=== PATIENT | male | born 1945 | race African-American/Black ===

== ENCOUNTER 2016-04-21 08:57 | Day surgery (SDC) | payer MEDICARE ==
[2016-04-18 14:14] VITALS: BMI 19.9
[~2016-04-21 08:57] MED LIST: ALBUTEROL NEB (CONC) 2.5 MG/0.5 ML INHALATION ONE; LACTATED RINGERS 1,000 ML IV ONE; LIDOCAINE 2% (PF) 20 MG/ML 10ML INHALATION ONE
[2016-04-21 09:38] VITALS: RESP 16
[2016-04-21] MEDS ORDERED: LIDOCAINE 1% 20 ML VIAL (10MG/ML) FOR IV START INTRADERMA ONE (09:44)
[2016-04-21] MEDS ORDERED: LIDOCAINE 1% INJ 10MG/ML (20 ML MDV) ONE (11:20)
[2016-04-21] MEDS ORDERED: NEOSTIGMINE 1 MG/ML 10 ML VIAL ONE (11:20)
[2016-04-21] MEDS ORDERED: ROCURONIUM BROMIDE 10 MG/ML 10 ML VIAL IV ONE (11:20)
[2016-04-21] MEDS ORDERED: fentaNYL (PF) 50 MCG/ML 2 ML AMP ONE (11:20)
[2016-04-21] MEDS ORDERED: PROPOFOL 10 MG/ML 20 ML VIAL IV ONE (11:20)
[2016-04-21] MEDS ORDERED: MIDAZOLAM 2 MG/2 ML VIAL ONE (11:20)
[2016-04-21] MEDS ORDERED: GLYCOPYRROLATE 0.2 MG/ML 2 ML VIAL ONE (11:20)
[2016-04-21] MEDS ORDERED: LABETALOL 5 MG/ML VIAL MDV ONE (11:20)
--- NOTE | 2016-04-21 12:01 | P.PCN ---
Date of Procedure: 04/21/16 Preoperative Diagnosis: Right lower lobe mass Postoperative Diagnosis: Right lower lobe mass Procedure(s) Performed: Navigation bronchoscopy, endobronchial needle aspirate, endobronchial biopsies, endobronchial brushings, bronchoalveolar lavage Anesthesia: ALOK Surgeon: Neal Fisher Ed Tech #1: Mirlande Lee Estimated Blood Loss (ml): 10 Pathology: other Condition: stable Disposition: same day Indications for Procedure: lung mass Operative Findings: The patient was taken initially to CT department where a inspiratory and expiratory computed tomography scan was done for planning purposes. The appropriate Vpads was placed preoperatively. The CT images were reviewed and appropriate target was segmented and plan for and the Route to the target lesion was identified. Following that, the patient was brought into the operating room where he was placed under general anesthesia, intubated and placed on a mechanical ventilator. Using the flexible bronchoscope, and airway inspection was done and the visualized airways included the lower trachea, bubba, bilateral mainstem bronchi, left upper lobe bronchus, left lower lobe bronchus, right upper lobe bronchus, right lower lobe bronchus, right middle lobe bronchus and bronchus intermedius. A irregular endobronchial tumor-like lesion/growth was identified in the posterior segment of the right lower lobe and was near completely occluding the airway. The rest of the airway examination was essentially within normal limits. Using the [employer] navigational system, they flexible bronchoscope was directed towards the posterior segment of the right lower lobe and endobronchial needle aspirate was done using a 19- gauge cytology needle. Following that endobronchial biopsies brushings and bronchoalveolar lavage of the right lower lobe posterior segment was done about a total of 80 mL of fluid was infused and 20 mL of fluid was aspirated. Note that while doing this procedure and biopsies, there was some superficial bleeding from the tumor surface which stopped spontaneously without any intervention. At that point, the flexible bronchoscope was removed and the patient was not clinically improved get extubated. Once extubated, the patient will be transferred to recovery. The procedure was done successfully. The endobronchial needle aspirate samples were inspected by pathologist bedside and the samples were lesional.
--- NOTE | 2016-04-21 12:02 | CT ---
EXAMINATION TYPE: CT Chest justen Dewey Protocol DATE OF EXAM: 04/21/2016 10:43 AM COMPARISON: Correlation radiographs 04/20/2016 HISTORY: 71-year-old male pre-bronchial navigation TECHNIQUE: Contiguous axial scanning of the with chest without IV contrast for purposes of endobronch ial navigation. Inspiratory and expiratory views were performed and coronal and sagittal reconstructi ons performed. CT DLP: 606 mGycm Automated exposure control for dose reduction was used. FINDINGS: The heart is normal size without pericardial effusion. Coronary vessel calcifications are present und er a marker for coronary artery disease. Ectasia of the upper descending thoracic aorta 3.0 cm with mild atherosclerotic arch calcifications a nd conventional arch vessel branching anatomy. No clear evidence for thoracic lymphadenopathy. Mild bilateral gynecomastia. Some vascular ectasia rodríguez ggested in the retrocrural space. No osseous destructive process. There is moderate to severe centrilobular emphysema with mild diffuse bronchial wall thickening. 5.4 cm mass within the posterior right lower lobe. This appears to attenuate and truncate the posteri or basilar segmental bronchus. There is some satellite nodularity adjacent to the mass at the right b ase measuring up to 5 mm and some adjacent patchy groundglass. Nonspecific hypodense lesions within the liver are subcentimeter and too small for accurate CT charac terization. Area of calcification posterior right hepatic dome is nonspecific, possibly prior granulo matous disease given punctate calcifications in the spleen as well. 1.4 cm hypodense lesion posterio r right kidney not adequately characterized on noncontrast CT, suspected cyst. Slight thickening of t he right adrenal gland. Bones: No osseous destructive process. IMPRESSION: 1. COPD WITH MODERATE TO SEVERE EMPHYSEMA. 2. 5.4 CM POSTERIOR RIGHT LOWER LOBE MASS. THIS TRUNCATES THE POSTERIOR BASILAR RIGHT LOWER LOBE SEGM ENTAL BRONCHUS. 3. THERE IS SOME SATELLITE NODULARITY MEASURING UP TO 5 MM AND SURROUNDING GROUNDGLASS THAT COULD REP RESENT PNEUMONITIS. 4. INDETERMINATE SUBCENTIMETER HYPODENSE LIVER LESIONS. 5. SLIGHT THICKENING OF THE RIGHT ADRENAL GLAND.
[2016-04-21 12:20] VITALS: TEMP 97.4
[2016-04-21 13:24] VITALS: BP 137/99; PULSE 107
== END 2016-04-21 13:41 | disposition home or self-care (01) ==
LOC: ORWHC2ENDO 08:57
PROVIDERS: ATTEND Internal Medicine Critical Care Medicine
DX: C34.31 Malignant neoplasm of lower lobe, right bronchus or lung (principal); J43.9 Emphysema, unspecified; I10 Essential (primary) hypertension; F17.200 Nicotine dependence, unspecified, uncomplicated; I69.854 Hemiplegia and hemiparesis following other cerebrovascular disease affecting left non-dominant side; Z79.899 Other long term (current) drug therapy
CPT/HCPCS: 88104; 88108; 88305; 88173; 88342; 88341; 87070; 87205; 71250; 31629; 31623; 31624; 31627; J2250; J2710; J2001; J3010; J2704; 31625

== ENCOUNTER → 2016-04-30 | Outpatient (CLI) | payer MEDICARE ==
--- NOTE | 2016-05-02 14:40 | PE ---
Nuclear medicine PET/CT HISTORY: Right lower lobe lung mass Patient received 15.2 mCi F-18 intravenously delayed scanning performed from the skull base to the mi d thighs. Localization and attenuation correction CT scan was also performed. Exam correlated to CT c hest 21 April 2016, chest x-ray May and 20 April 2016 Neck and chest: Right lower lobe lung mass now measures approximately 5.7 cm in greatest dimension. S UV is 10. There is no evident adenopathy. Coronary artery calcifications are present. Pulmonary arter y somewhat prominent, correlate for possible pulmonary artery hypertension. There is no pleural effus ion. Emphysematous changes are present within the lungs. Interstitial changes are also present in the right lower lobe. Pelvis: No suspicious hypermetabolic uptake. No evident renal mass. Cystic foci within the left lobe of the liver are subcentimeter in size. No retroperitoneal adenopathy. Cystic foci associated with th e right kidney. Osseous structures: At the level of the lesser trochanter muscular origin small area of hypermetaboli c uptake is present which is likely benign. IMPRESSION: Findings compatible with bronchogenic carcinoma. Emphysema, consider pulmonary artery hyp ertension. Additional findings above.
== END | disposition home or self-care (01) ==
LOC: RADPETMAIN 08:05
PROVIDERS: ATTEND Internal Medicine
DX: R91.8 Other nonspecific abnormal finding of lung field (principal); J43.9 Emphysema, unspecified; I25.10 Atherosclerotic heart disease of native coronary artery without angina pectoris
CPT/HCPCS: 78815; A9552

== ENCOUNTER → 2016-05-23 | Outpatient (CLI) | payer MEDICARE ==
[~2016-05-23] MED LIST changes: -ALBUTEROL NEB (CONC) 2.5 MG/0.5 ML INHALATION ONE; -LACTATED RINGERS 1,000 ML IV ONE; -LIDOCAINE 2% (PF) 20 MG/ML 10ML INHALATION ONE; +REGADENOSON 0.4 MG/5 ML SYRINGE IV ONE
[2016-05-23 08:02] LABS: ABG Base Excess 2.6 mmol/L; ABG HCO3 26 mmol/L (21-25); ABG PCO2 39 mmHg (35-45); ABG PH 7.45 (7.35-7.45); ABG PO2 74 mmHg (83-108); ABG TCO2 28 mmol/L (19-24)
--- NOTE | 2016-05-23 08:48 | US ---
EXAMINATION TYPE: US carotid duplex BILAT DATE OF EXAM: 05/23/2016 8:25 AM COMPARISON: 03/27/2013 CLINICAL HISTORY: 71-year-old male I25.10 coronary artery dis. History of left carotid stenosis. TECHNIQUE: Carotid duplex ultrasound examination. Indirect Doppler criteria utilized. FINDINGS: There is moderate to severe atherosclerotic change at the left greater than right bifurcations. EXAM MEASUREMENTS: RIGHT: Peak Systolic Velocity (PSV) cm/sec ----- Right CCA: 46.0 ----- Right ICA: 95.2 ----- Right ECA: 73.1 ICA/CCA ratio: 2.1 RIGHT: End Diastole cm/sec ----- Right CCA: 11.1 ----- Right ICA: 29.8 ----- Right ECA: 4.6 LEFT: Peak Systolic Velocity (PSV) cm/sec ----- Left CCA: 42.6 ----- Left ICA: 172.8 ----- Left ECA: 99.4 ICA/CCA ratio: 4.1 LEFT: End Diastole cm/sec ----- Left CCA: 11.5 ----- Left ICA: 46.5 ----- Left ECA: 6.5 VERTEBRALS (direction of flow): Right Vertebral: Antegrade Left Vertebral: Antegrade IMPRESSION: Measurements suggest at least moderate (50-69%) proximal left ICA stenosis. Given the degree of eleva tion in the ICA/CCA ratio and end-diastolic velocity, consider CTA to exclude a more severe stenosis. Criteria for Assigning % of Stenosis / Diameter reduction (Estimation based on the indirect measurements of the internal carotid artery velocities (ICA PSV). 1. Normal (no stenosis)=ICA PSV < 125 cm/s: ratio < 2.0: ICA EDV<40 cm/s. 2. Less than 50% stenosis=ICA PSV < 125 cm/s: ratio < 2.0: ICA EDV<40 cm/s. 3. 50 to 69% stenosis=ICA PSV of 125 to 230 cm/s: ration 2.0 ? 4.0: ICA EDV 40-100 cm/s. 4. Greater than 70% stenosis to near occlusion= ICA PSV > 230 cm/s: ratio > 4.0: ICA EDV > 100 cm/s. 5. Near occlusion= ICA PSV velocities may be low or undetectable: variable ratio and ICA EDV. 6. Total occlusion=unable to detect flow.
[2016-05-23 10:14] LABS: CH 28.2; CHCM 32.1; HCT 51.7 % (39.0-53.0); HDW 2.87; HGB 16.3 gm/dL (13.0-17.5); MCH 27.8 pg (25.0-35.0); MCHC 31.5 g/dL (31.0-37.0); MCV 88.5 fL (80.0-100.0); Mean Platelet Volume 7.1; RBC 5.84 m/uL (4.30-5.90); WBC 4.8 k/uL (3.8-10.6)
[2016-05-23 10:24] LABS: INR 1.1 (<1.1); Partial Thromboplastin Time 25.6 sec (22.0-30.0); Prothrombin Time 11.3 sec (9.0-12.0)
[2016-05-23 10:35] LABS: Bilirubin, Delta 0.5 mg/dL (0.0-0.2); Potassium 4.4 mmol/L (3.5-5.1); Total Bilirubin 1.1 mg/dL (0.2-1.3); Total Protein 7.6 g/dL (6.3-8.2)
--- NOTE | 2016-05-23 11:23 | EST ---
DATE OF SERVICE: 05/23/2016 AGE: 71Y SEX: M HT: 70 WT: 136 lbs. Protocol Robert: Other: Lexiscan Cardiolite Stage: Dur. of Exercise: *Heart Rate Blood Pressure *Rest: 65 Rest: 187/93 * *Max. Achieved: 83 Maximum BP: 196/101 85% PMHR: 126 100% PMHR: 148 *METS: INDICATIONS: Pre-op evaluation, history of hypertension, history of CVA, history of smoking 1 pack of cigarettes a day for over 50 years. MEDICATIONS: Resting ECG shows sinus rhythm rate of 65 beats per minute, SC interval 0.16, QRS 0.08. T wave inversions are noted in the lateral leads, nonspecific. Utilizing ad standard Lexiscan protocol, Lexiscan was given IV push followed by serial EKGs without any chest pain or pressure or ST segment deviations indicative of ischemia in any of the monitoring 12 leads. IMPRESSION: 1. Baseline rhythm is sinus with normal SC interval, normal QRS, nonspecific ST-T wave changes in the lateral leads. 2. Negative Lexiscan Cardiolite study. 3. Nuclear scintigrams to follow from radiology department.
[2016-05-23 11:58] LABS: Appearance,Urine Clear (Clear); Bilirubin,Urine Negative (Negative); Glucose,Urine (UA) Negative (Negative); Ketones,Urine Negative (Negative); Leukocyte Esterase,Urine Negative (Negative); Nitrite,Urine Negative (Negative); PH, Urine 6.5 (5.0-8.0); Protein,Urine Negative (Negative); UA Billing (MACRO vs. MICRO) CHEM
--- NOTE | 2016-05-23 12:22 | NM ---
EXAMINATION TYPE: NM stress lexiscan cardiolite DATE OF EXAM: 05/23/2016 11:09 AM COMPARISON: NONE HISTORY: 71 year-old male history of coronary artery disease TECHNIQUE: After the intravenous administration of 10.66 mCi Tc 99m Sestamibi - Cardiolite resting S PECT images acquired 45 minutes post injection. The patient received 0.4mg Lexiscan, 27.5 mCi Tc 99m Sestamibi - Stress images obtained [address] injection FINDINGS: Review of stress and rest SPECT images demonstrates no distinct perfusion abnormality. Gated analysi s shows normal wall motion with an estimated left ventricular ejection fraction of 55 %. TID is calc ulated at 0.93, within normal limits. IMPRESSION: No scintigraphic evidence for reversible ischemia.
== END | disposition home or self-care (01) ==
LOC: RADNMMAIN 07:02
PROVIDERS: ATTEND Thoracic Surgery (Cardiothoracic Vascular Surgery)
DX: Z01.818 Encounter for other preprocedural examination (principal); I65.22 Occlusion and stenosis of left carotid artery
CPT/HCPCS: 36600; 94726; 94729; 94060; 93017; 80051; 80076; 82805; 82947; 85027; 85610; 85730; 81003; 93880; 78452; 93005; A9500; 86850; 86900; 86901

== ENCOUNTER 2016-05-27 08:42 | Inpatient (IN) | payer MEDICARE, OTHER ==
[~2016-05-27 08:42] MED LIST changes: +DEXAMETHASONE SOD PHOSPHATE 10 MG/ML 1 ML VIAL IV ONE; +HYDROmorphone 1 MG/ML 1 ML SYRINGE IVP PRN; +LACTATED RINGERS 1,000 ML IV SCH; +ONDANSETRON 4 MG/2 ML VIAL IVP ONE; -REGADENOSON 0.4 MG/5 ML SYRINGE IV ONE; +ceFAZolin 1,000 MG in DEXTROSE/WATER 1 50ML.BAG IV ONE
[2016-05-27] MEDS ORDERED: LIDOCAINE 1% 20 ML VIAL (10MG/ML) FOR IV START INTRADERMA ONE (09:03)
[2016-05-27] MEDS: MIDAZOLAM 2 MG/2 ML VIAL IV PRN ×2 (09:20→09:22)
[2016-05-27] MEDS ORDERED: LABETALOL 5 MG/ML VIAL MDV ONE (10:04)
[2016-05-27] MEDS ORDERED: NEOSTIGMINE 1 MG/ML 10 ML VIAL ONE (10:04)
[2016-05-27] MEDS ORDERED: fentaNYL (PF) 50 MCG/ML 2 ML AMP ONE (10:04)
[2016-05-27] MEDS ORDERED: ROCURONIUM BROMIDE 10 MG/ML 10 ML VIAL IV ONE (10:04)
[2016-05-27] MEDS ORDERED: SUCCINYLCHOLINE CHLORIDE 100 MG/5 ML SYR IV ONE (10:04)
[2016-05-27] MEDS ORDERED: MIDAZOLAM 2 MG/2 ML VIAL ONE (10:04)
[2016-05-27] MEDS ORDERED: ePHEDrine 50 MG/ML 1 ML AMP ONE (10:04)
[2016-05-27] MEDS ORDERED: PHENYLEPHRINE-0.9% NACL SYG 1 MG/10 ML SYRINGE ONE (10:04)
[2016-05-27] MEDS ORDERED: GLYCOPYRROLATE 0.2 MG/ML 2 ML VIAL ONE (10:04)
[2016-05-27] MEDS ORDERED: LIDOCAINE 1% INJ 10MG/ML (20 ML MDV) ONE (10:04)
[2016-05-27] MEDS ORDERED: PROPOFOL 10 MG/ML 20 ML VIAL IV ONE (10:04)
[2016-05-27] MEDS ORDERED: NALOXONE 0.4 MG/ML 1 ML VIAL IV PRN (10:30)
[2016-05-27] MEDS ORDERED: BUPIVACAINE (PF) 0.5% 31.3 ML, HYDROmorphone 5 MG in SODIUM CHLORIDE 0.9% 216 ML EPIDURAL PRN (10:30)
[2016-05-27] MEDS ORDERED: LACTATED RINGERS 1,000 ML IV ONE (12:57)
--- NOTE | 2016-05-27 13:16 | P.OP ---
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 Right lower and middle bilobectomy.) Condition: stable Disposition: PACU Indications for Procedure: Patient was diagnosed with a large non-small cell carcinoma of the right lower lobe approximately 5 cm in diameter without evidence of metastatic disease by PET scan. Operative Findings: On opening the chest there were minimal intrapleural adhesions. There was a large tumor involving the right lower lobe. The fissures were incomplete. There was significant lymphadenopathy both in the mediastinum and in the hilum and significant inflammatory adhesions in this area as well this made dissection in the hilum very difficult. Lung tissue was of poor overall quality and very friable. On completion of the operation the specimen was sent for frozen section of the bronchial margin which returned negative for malignancy. Description of Procedure: the patient was brought to the operating room placed supine on the operating table anesthetized and intubated with a double-lumen endotracheal tube tube was positioned with fiberoptic bronchoscopy no endobronchial lesions were noted. The tube was secured and the patient turned in the left lateral decubitus position the right chest was sterilely pressed prepped and draped. a small posterior lateral thoracotomy incision was performed. The latissimus muscle was divided with electrocautery. serratus muscle was mobilized and retracted anteriorly. The chest was entered in the sixth interspace. The intercostal muscles were undercut anteriorly and posteriorly to allow rib spreading. 2. Rib director of professional services was placed and the chest was exposed second to VA was used for further exposure. chest was explored with the findings as noted above. Inferior pulmonary ligament was taken down. Inferior pulmonary vein was encircled ligated and divided with a Endo WEN vascular stapler. dissection was carried up onto the bronchus. The paraesophageal and subcarinal lymph nodes were dissected out and sent for permanent section. dissection in the hilum was very difficult we were able to encircle the bronchus intermedius but were really not able to dissect further down safely and findings the takeoff of the middle lobe bronchus. was decided to proceed with bilobectomy. bronchus intermedius was divided with a Endo WEN thick stapler. the branches of the superior pulmonary vein vein in the middle lobe was now dissected out and divided with a Endo WEN vascular stapler. careful dissection was carried up onto the pulmonary artery the dissection was very difficult we first identified ligated and divided the middle lobe branch of the pulmonary artery. This was ligated with silk ties and divided. we were now able to safely encircle the pulmonary artery branches leading to the lower lobe and this was ligated and divided with an Endo WEN vascular stapler. fissures were completed with multiple firings of the Endo WEN stapler. The specimen was removed from the field and sent to pathology for frozen section. hilar lymph nodes were resected and sent as R10 and R 11 lymph nodes is appropriate. the R4 lymph nodes were dissected. all lymph node specimens were sent for permanent section. the AtriCure Endo ice device was used to perform cryoablation of the intercostal nerves levels 4,5,6,7 and 8. we irrigated out the chest. The lung tissue was very friable and inflating the lung the lung tore at the staple line. This was oversewn with Prolene suture. no pro-gel was available for sealant. A 28-Armenian chest tube was placed through separate stab incision and positioned posterior apically. ribs were approximated with #1 Vicryl. muscle layers were approximated with 0 Vicryl. Subcutaneous tissue was approximated with 2-0 Vicryl. Skin was closed with 3-0 Vicryl. Steri-Strips and dry sterile dressings were applied and the patient was turned supine and extubated and transferred to recovery in stable condition.
[2016-05-27] MEDS ORDERED: METOCLOPRAMIDE 5 MG/ML 2 ML VIAL IVP PRN (13:22)
[2016-05-27] MEDS ORDERED: BISACODYL 10 MG SUPP RECTAL PRN (13:22)
[2016-05-27] MEDS ORDERED: IPRATROPIUM-ALBUTEROL 3 ML NEB IH PRN (13:22)
--- NOTE | 2016-05-27 14:02 | XR ---
EXAMINATION TYPE: XR chest 1V DATE OF EXAM: 05/27/2016 1:49 PM COMPARISON: 05/27/2016 HISTORY: 71-year-old male postoperative evaluation for lung cancer. TECHNIQUE: Single frontal view of the chest is obtained. FINDINGS: There is some volume loss within the right hemithorax with shift of the cardiomediastinum to the righ t. Elongation of the thoracic aorta. Heart is normal size. Moderate-sized right basilar pneumothorax estimated at 35% on an apically directed right-sided chest tube is present. Subcutaneous air is also noted. Left lung and pleural space remain clear. Surgical clips of the right axilla. IMPRESSION: Interval partial right pneumonectomy. Findings suggest a moderate right basilar pneumothorax estimate d at 35% by volume. Chest tube is in place.
[2016-05-27] MEDS: IPRATROPIUM-ALBUTEROL 3 ML NEB IH SCH ×2 (17:16→19:38)
[2016-05-27] MEDS: DEXTROSE 5%-0.45% NACL 1,000 ML IV SCH (18:04)
[2016-05-27] MEDS: ceFAZolin 2 GM in SODIUM CHLORIDE 0.9% 100 ML IVPB SCH ×2 (18:04→23:15)
[2016-05-27] MEDS: HEPARIN SODIUM,PORCINE 5,000 UNIT/ML 1 ML VIAL SQ SCH (21:46)
[2016-05-28] MEDS ORDERED: HALOPERIDOL LACTATE 5 MG/ML 1 ML VIAL IM PRN (04:33)
[2016-05-28] MEDS ORDERED: KETOROLAC 30 MG/ML 1 ML VIAL IVP SCH (06:00)
[2016-05-28] MEDS: PANTOPRAZOLE 40 MG TABLET PO SCH (06:48)
[2016-05-28] MEDS ORDERED: ACETAMINOPHEN IV (For NPO) 1,000 MG in EMPTY BAG 1 BAG IVPB ONE (07:00)
[2016-05-28] MEDS: DEXTROSE 5%-0.45% NACL 1,000 ML IV SCH ×2 (08:10→16:53)
[2016-05-28] MEDS: DILTIAZEM CD 180 MG CAP.ER.24H PO SCH (08:11)
[2016-05-28] MEDS: HYDROCHLOROTHIAZIDE 25 MG TAB PO SCH (08:11)
[2016-05-28] MEDS: HEPARIN SODIUM,PORCINE 5,000 UNIT/ML 1 ML VIAL SQ SCH ×2 (08:11→22:14)
--- NOTE | 2016-05-28 08:38 | P.PN ---
Progress Note - Text Date: 05/28/2016 Time: 800 The patient is status post, right thoracotomy, postoperative day number[] The patient has no complaints of nausea vomiting or headache. The patient does not complain of any lower extremity numbness or weakness. The epidural was dislodged this past evening. The patient is comfortable at present. He medicines will be provided patient by the service.
[2016-05-28] MEDS ORDERED: LABETALOL 200 MG TAB PO SCH (09:00)
--- NOTE | 2016-05-28 10:35 | XR ---
EXAMINATION TYPE: XR chest 1V DATE OF EXAM: 05/28/2016 9:11 AM COMPARISON: NONE INDICATION: Pneumothorax TECHNIQUE: Single frontal view of the chest is obtained. FINDINGS: The heart size is normal. The pulmonary vasculature is normal. The lungs are clear. A right basilar pneumothorax remains present. This appears smaller than comparison. Right-sided chest tube is present along the medial right lung border. Extensive emphysematous changes are developing. IMPRESSION: 1. Small right basilar pneumothorax somewhat diminished from prior study. 2. Right-sided chest tube. 3. Extensive increasing emphysematous changes right chest wall
[2016-05-28 10:46] LABS: Basophils % (A) 0 %; CH 28.6; Eosinophils # (A) 0.1 k/uL (0-0.7); Eosinophils % (A) 2 %; HDW 2.88; HGB 15.7 gm/dL (13.0-17.5); Luc # (Auto) 0.21; Luc % (Auto) 2; Lymphocytes # (A) 1.4 k/uL (1.0-4.8); Lymphocytes % (A) 16 %; MCV 87.5 fL (80.0-100.0); Mean Platelet Volume 6.4; Monocytes # (A) 0.4 k/uL (0-1.0); Monocytes % (A) 5 %; Neutrophils # (A) 6.7 k/uL (1.3-7.7); Neutrophils % (A) 76 %; RDW 14.6 % (11.5-15.5); WBC 8.9 k/uL (3.8-10.6); WBC (Perox) 8.99
[2016-05-28 11:08] LABS: Anion Gap 9 mmol/L; Blood Urea Nitrogen 16 mg/dL (9-20); Calcium 8.8 mg/dL (8.4-10.2); Carbon Dioxide 24 mmol/L (22-30); Chloride 101 mmol/L (98-107); Glucose 117 mg/dL (74-99); Non-African American GFR(MDRD) >60 (>60 ml/min/1.73 sqM); Potassium 3.7 mmol/L (3.5-5.1); Sodium 134 mmol/L (137-145)
[2016-05-28] MEDS: IPRATROPIUM-ALBUTEROL 3 ML NEB IH SCH ×4 (11:10→22:15)
[2016-05-28] MEDS ORDERED: NICOTINE POLACRILEX 2 MG GUM BUCCAL PRN (11:28)
[2016-05-28] MEDS ORDERED: KETOROLAC 30 MG/ML 1 ML VIAL IVP PRN (12:00)
[2016-05-28] MEDS: NICOTINE 21MG/24HR PATCH TRANSDERM SCH (12:12)
[2016-05-28] MEDS: DIAZEPAM 2 MG TAB PO SCH ×3 (12:12→22:14)
[2016-05-28] MEDS: ASPIRIN 81 MG CHEW PO SCH (12:12)
[2016-05-28] MEDS: ATORVASTATIN 40 MG TAB PO SCH (12:12)
--- NOTE | 2016-05-28 15:12 | CONS ---
DATE OF CONSULTATION: 05/28/2016 REASON FOR CONSULTATION: Medical management requested by Dr. Negron. CONSULTATION: This is a 71-year-old patient of Dr. Weinberg who underwent a right mid lower lobectomy by Dr. Negron and also cryotherapy of the right IV to VII intercostal nerves. Patient has a chest tube on the right side with some subcutaneous emphysema and quite a bit of air leak. Patient was a bit agitated last night. Patient's chronic stable medical conditions include congestive heart failure, stroke with residual left-sided weakness, GERD, hypertension. REVIEW OF SYSTEMS: CONSTITUTIONAL: Tired. HEENT: None. RESPIRATORY: Some shortness of breath. CARDIOVASCULAR: None. GASTROINTESTINAL: None. MUSCULOSKELETAL: None. DERMATOLOGICAL: None. HEMATOLOGICAL: None. LYMPHATIC: None. PSYCHIATRIC: Agitated last night. NEUROLOGICAL: Some residual weakness on the left side. Past medical history of lung cancer, congestive heart failure, stroke with residual left-sided weakness, GERD, hypertension. PAST SURGICAL HISTORY: None. SOCIAL HISTORY: Patient smoked about 50 years now down to about close to a pack a day. Drinks half a bottle of MashON daily, lives with his daughter, retired. FAMILY HISTORY: Reviewed, noncontributory to the presentation. HOME MEDICATIONS: 1. Omeprazole 20 mg a day. 2. Trandate 200 mg p.o. daily. 3. Hydrochlorothiazide 25 mg daily. 4. [place] 7.5, 1 tablet q.6 p.r.n. 5. Cardizem ER 24 mg a day. ALLERGIES: None. On examination, temperature 101.3, pulse 119, respiration 18, blood pressure 110/76, pulse ox 90% on room air. GENERAL APPEARANCE: Average build, sitting up, tired -appearing. EYES: Pupils equal. Conjunctivae normal. HEENT: External appearance of nose and ears normal. Oral cavity normal. NECK: JVD not raised. Mass not palpable. RESPIRATORY: Effort increased. LUNGS: Decreased breath sounds especially on the right side. CARDIOVASCULAR: First and second sounds normal. No edema. ABDOMEN: Soft, nontender. Liver and spleen not palpable. LYMPHATIC: No lymph nodes palpable in neck or axillae. PSYCHIATRY: Alert and oriented x3. Mood and affect slightly low. MUSCULOSKELETAL: Subcutaneous emphysema on the right chest wall and in the supraclavicular area. Right chest wall also has a chest tube in place. INVESTIGATIONS: White count 8.9, hemoglobin 15.7, potassium 3.7. Chest x-ray reveals a right-sided chest tube, small pneumothorax and subcutaneous emphysema and the lungs are hyperinflated. ASSESSMENT: 1. Right middle and lower lobe resection for lung cancer including IV to VII intercostal cryoblation for pain control. 2. Emphysema in a current smoker. 3. Chronic nicotine dependence. Patient is a cigarette smoker. 4. Essential hypertension. 5. Gastroesophageal reflux disease. 6. Early delirium tremens last night because patient is probably withdrawing from alcohol. 7. Chronic alcohol dependence. Patient drinks a half pine of MashON every day. 8. Right pneumothorax, iatrogenic, with chest tube in place. 9. Subcutaneous emphysema from air leak on the right side. PLAN: Patient was put on nebulized bronchodilator and told to use respiratory spirometer. For DT standpoint prophylaxis, will start the patient on Lopressor 50 mg 3 times a day. Hold off the labetalol patient only getting once a day. Also put the patient on Valium 2 mg 3 times a day. Also put the patient on baby aspirin, given history of stroke. Will add Lipitor 40 mg a day for the same purpose. Patient advised against alcohol and smoking, given a nicotine patch. Thank you Dr. Negron. Will follow the patient closely with you.
--- NOTE | 2016-05-28 15:13 | P.PN ---
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 Patient awake and alert, no distress noted, no specific complaints,patient denies pain at this time. The patient removed his epidural last p.m. epidural placement site clean dry and intact. Vital Signs: Afebrile Vital Signs - 24 hr 05/27/16 05/27/16 05/27/16 15:15 15:30 15:45 Temperature Pulse Rate Pulse Rate [ Retail Interior [employer]er ] Pulse Rate [ 75 78 85 Pulse Oximetery ] Respiratory 16 16 16 Rate Blood Pressure [Left Arm] Blood Pressure 125/60 136/56 153/66 [Left Radial Artery Supine] O2 Sat by Pulse 100 100 100 Oximetry 05/27/16 05/27/16 05/27/16 16:00 16:15 16:27 Temperature 98 F Pulse Rate Pulse Rate [ [employer]er ] Pulse Rate [ 90 96 93 Pulse Oximetery ] Respiratory 16 16 16 Rate Blood Pressure [Left Arm] Blood Pressure 135/64 127/60 127/60 [Left Radial Artery Supine] O2 Sat by Pulse 99 100 100 Oximetry 05/27/16 05/27/16 05/27/16 17:00 17:15 17:16 Temperature 98 F Pulse Rate Pulse Rate [ [employer] Interior [employer]er ] Pulse Rate [ 89 62 Pulse Oximetery ] Respiratory 18 18 18 Rate Blood Pressure 138/70 133/45 115/78 [Left Arm] Blood Pressure [Left Radial Artery Supine] O2 Sat by Pulse 99 99 Oximetry 05/27/16 05/27/16 05/27/16 17:30 17:43 17:54 Temperature Pulse Rate Pulse Rate [ [employer] Interior [employer]er ] Pulse Rate [ 70 85 Pulse Oximetery ] Respiratory 18 18 18 Rate Blood Pressure 145/68 135/65 144/65 [Left Arm] Blood Pressure [Left Radial Artery Supine] O2 Sat by Pulse 100 98 100 Oximetry 05/27/16 05/27/16 05/27/16 18:21 18:40 19:21 Temperature Pulse Rate Pulse Rate [ [employer] Interior [employer]er ] Pulse Rate [ 86 76 Pulse Oximetery ] Respiratory 18 18 Rate Blood Pressure 148/75 113/57 [Left Arm] Blood Pressure [Left Radial Artery Supine] O2 Sat by Pulse 99 99 98 Oximetry 05/27/16 05/27/16 05/27/16 19:39 19:50 20:00 Temperature Pulse Rate 74 76 Pulse Rate [ Retail Interior [employer]er ] Pulse Rate [ Pulse Oximetery ] Respiratory 18 Rate Blood Pressure [Left Arm] Blood Pressure [Left Radial Artery Supine] O2 Sat by Pulse 95 Oximetry 05/27/16 05/27/16 05/28/16 20:21 21:21 00:00 Temperature 97.5 F L 98.8 F Pulse Rate Pulse Rate [ Retail Interior [employer]er ] Pulse Rate [ 82 94 99 Pulse Oximetery ] Respiratory 18 18 18 Rate Blood Pressure 123/62 154/85 140/62 [Left Arm] Blood Pressure [Left Radial Artery Supine] O2 Sat by Pulse 99 99 97 Oximetry 05/28/16 05/28/16 05/28/16 04:00 06:30 08:00 Temperature 99.6 F 101.7 F H 101.3 F H Pulse Rate Pulse Rate [ 119 H Retail Interior Designer ] Pulse Rate [ 101 H 131 H Pulse Oximetery ] Respiratory 18 18 Rate Blood Pressure 137/82 110/76 [Left Arm] Blood Pressure [Left Radial Artery Supine] O2 Sat by Pulse 100 90 L Oximetry 05/28/16 05/28/16 05/28/16 11:20 11:34 12:00 Temperature 99.1 F Pulse Rate 118 H 118 H Pulse Rate [ 119 H Retail Interior Designer ] Pulse Rate [ 95 Pulse Oximetery ] Respiratory 16 Rate Blood Pressure 104/65 [Left Arm] Blood Pressure [Left Radial Artery Supine] O2 Sat by Pulse 94 L 93 L Oximetry Labs: Short CBC 05/28/16 Range/Units 10:23 WBC 8.9 (3.8-10.6) k/uL Hgb 15.7 (13.0-17.5) gm/dL Hct 49.0 (39.0-53.0) % Plt Count 266 (150-450) k/uL Neutrophils # 6.7 (1.3-7.7) k/uL BMP 05/28/16 10:23 Sodium 134 L Potassium 3.7 Chloride 101 Carbon Dioxide 24 BUN 16 Creatinine 0.97 Glucose 117 H Calcium 8.8 IV Fluids: D5.45 normal saline at 75 mL per hour. Lungs: few scattered rhonchi throughout, diminished bilateral bases right greater than left. Respirations are unlabored. Positive subcu emphysema to his right chest and back. O2 sat: 93% on 3 L nasal cannula. I/S: 750 mL to 1000 mL, reviewed with the patient the importance of using his incentive spirometry every hour while awake. The patient did give a good return demonstration on his incentive spirometry. Heart: S1S2,regular rhythm and rate, positive systolic murmur. Remote telemetry showing sinus tachycardia heart rate 120. Right lateral chest incision clean dry and intact, dressing clean and dry.no drainage noted. Knee-high PROSPER hose and sequential compression devices in place to bilateral lower extremities. Abdomen: Soft, Positive bowel sounds present in all 4 quadrants. U/O: adequate, Butterfield catheter for accurate I&O. Chest Tubes: right pleural chest tube with positive continuous air leak. 440 mL of output the last 8 hours, 740 mL output since surgery. 24 hr Total: Intake & Output 05/26/16 05/27/16 05/28/16 05/29/16 06:59 06:59 06:59 06:59 Intake Total 3053.8 1720 Output Total 1444 3720 Balance 1609.8 -2000 Weight 62.5 kg 62.5 kg Active Medications Hydrocodone Bitart/Acetaminophen ([place] 7.5-325) 1 each PO Q6H PRN PRN Reason: Moderate Pain Albuterol/Ipratropium (Duoneb 0.5 Mg-3 Mg/3 Ml Soln) 3 ml IH RT-Q1H PRN PRN Reason: Shortness Of Breath Or Wheezing Albuterol/Ipratropium (Duoneb 0.5 Mg-3 Mg/3 Ml Soln) 3 ml IH RT-QID [facility] Last Admin: 05/28/16 11:20 Dose: 3 ml Aspirin (Aspirin) 81 mg PO DAILY [facility] Last Admin: 05/28/16 12:12 Dose: 81 mg Atorvastatin Calcium (Lipitor) 40 mg PO DAILY [facility] Last Admin: 05/28/16 12:12 Dose: 40 mg Bisacodyl (Dulcolax) 10 mg RECTAL DAILY PRN PRN Reason: Constipation Diazepam (Valium) 2 mg PO TID [facility] Last Admin: 05/28/16 12:12 Dose: 2 mg Diltiazem HCl (Cardizem Cd) 180 mg PO DAILY [facility] Last Admin: 05/28/16 08:11 Dose: 180 mg Haloperidol Lactate (Haldol) 5 mg IM Q6HR PRN PRN Reason: Agitation or Acute Psychosis Last Admin: 05/28/16 04:45 Dose: 5 mg Heparin Sodium (Porcine) (Heparin) 5,000 unit SQ Q12HR [facility] Last Admin: 05/28/16 08:11 Dose: 5,000 unit Hydrochlorothiazide (Hydrodiuril) 25 mg PO DAILY [facility] Last Admin: 05/28/16 08:11 Dose: 25 mg Bupivacaine HCl 31.3 ml/Hydromorphone HCl 5 mg/ Sodium Chloride 249.8 mls @ 0 mls/hr EPIDURAL .Q0M PRN; Protocol; Per Protocol PRN Reason: Pain Control Last Admin: 05/27/16 14:15 Dose: 88.8 mls Dextrose/Sodium Chloride (Dextrose 5%-1/2ns Iv Soln) 1,000 mls @ 75 mls/hr IV .[id number] [facility] Last Admin: 05/28/16 08:10 Dose: 75 mls/hr Ketorolac Tromethamine (Toradol) 15 mg IVP Q6HR PRN PRN Reason: Moderate Pain when IV preferre Stop: 05/29/16 12:01 Metoclopramide HCl (Reglan) 5 mg IVP Q4HR PRN PRN Reason: Nausea And Vomiting Metoprolol Tartrate (Lopressor) 50 mg PO TID [facility] Morphine Sulfate (Morphine Sulfate (Inj)) 2 mg IV Q2HR PRN PRN Reason: Mild Breakthrough Pain Nicotine (Habitrol 21mg/24hr Patch) 1 patch TRANSDERM DAILY [facility] Last Admin: 05/28/16 12:12 Dose: 1 patch Nicotine Polacrilex (Nicorette Gum) 2 mg BUCCAL Q4HR PRN PRN Reason: Nicotine Cravings Ondansetron HCl (Zofran) 4 mg IVP Q8HR PRN PRN Reason: Nausea And Vomiting Pantoprazole Sodium (Protonix) 40 mg PO AC-BRKFST [facility] Last Admin: 05/28/16 06:48 Dose: Not Given Plan: 1. Pain control per when necessary orders. 2. Wean oxygen as tolerated, pulmonary management per Dr. Suresh's recommendations 3. Encourage use of his incentive spirometry every hour while awake. 4. Increase activity as tolerated, physical therapy to evaluate and treat. 5. Consult social work for discharge placement. 6. Medical management per Dr Albert. 7. Further recommendations as patient progresses. <Rudi Gutierrez - Last Filed: 05/31/16 11:49> Progress Note - Text The patient was seen and examined. I agree with the above assessment and plan. Apparently the patient had some confusion overnight which resulted in dislodgment of his epidural catheter. This morning he appears to be more lucid. He does have a significant air leak from his chest tube. His chest x- ray reveals some subcutaneous emphysema along with a space around the right lung. We will therefore continue with suction for now. We will encourage incentive spirometry. His pain appears to be well controlled.
[2016-05-28] MEDS: METOPROLOL TARTRATE 50 MG TAB PO SCH ×2 (16:58→22:14)
--- NOTE | 2016-05-28 18:08 | CONS ---
DATE OF CONSULTATION: This is a 71-year-old black male postop day #1, status post right middle and right lower lobectomy for squamous cell carcinoma. The diagnosis was made by my partner. The patient underwent surgery yesterday by Dr. Negron. He is doing relatively well. He is on the sixth floor in Room 680, bed 2. Still on some nasal O2. Apparently has a history of gastroesophageal reflux disease, hypertension. The patient also has a recent diagnosis of lung cancer. Allergies are denied. Social history is positive for chronic tobacco use. Family history is noncontributory. Home medications include omeprazole, labetalol, hydrochlorothiazide, [place], and diltiazem. Occupational history is noncontributory. Surgical history is mostly remote. REVIEW OF SYSTEMS: CONSTITUTIONAL: Negative. NEUROLOGIC: Negative. HEENT: Negative. CARDIOVASCULAR: Negative. PULMONARY: Negative. GI/: Negative. RHEUMATOLOGICAL/IMMUNOLOGIC: Negative. ENDOCRINOLOGIC: Negative. Current vital signs are reviewed. Temperature is 101.3, heart rate is 100, respiratory rate 18, blood pressure 110/76, mean 87, and the room air saturation 94%. Appears in no acute distress, looks relatively comfortable. He was dosing off when we entered the room. HEENT examination is grossly unremarkable. Mucous membranes are moist. No oral lesions. Neck supple. Full range of motion. No adenopathy or thyromegaly. Neck veins are flat. Cardiovascular examination reveals regular rhythm and rate. Heart rate about 100, S1, S2 normal. No S3, S4 or murmur. Lungs reveal a few scattered rhonchi. Does not take deep breaths. No wheezes or crackles. Left lung breath sounds seem more significant than the right side. Abdomen is soft. Bowel sounds are heard. There were no masses or tenderness. Extremities reveal no cyanosis, clubbing or edema. Skin without rash or lesion. Brief neurological examination is nonfocal. Labs are reviewed. CBC is essentially normal. White count 8.9, hemoglobin 15.7, hematocrit 49.0, platelet count 266,000. Sodium 134, potassium 3.7, chloride 101, CO2 of 24, BUN and creatinine were 16 and 0.97. A chest x-ray today shows some postsurgical changes of right basilar pneumothorax, right-sided chest tube and some increasing emphysematous changes in the right chest wall. Medications are reviewed. He is on Tylenol, aspirin atorvastatin, Dulcolax, IV Valium, Cardizem, [place], Haldol, heparin, hydrochlorothiazide, updrafts with DuoNeb, Toradol, Reglan, metoprolol, morphine, nicotine patch, Protonix and Ancef. ASSESSMENT: 1. Postoperative day #1 right middle and right lower lobectomy for non-small cell lung cancer, squamous-cell type. 2. History of gastroesophageal reflux disease. 3. History of hypertension. PLAN: The patient will be followed closely. We recommend the incentive spirometer every hour while awake. He is on updrafts. Will continue to follow him closely. It will be important for him to take deep breaths and avoid atelectasis, pneumonia or pleural effusion. Additional recommendations and suggestions are forthcoming. He is currently on updrafts. No additional recommendations are made at this time.
[2016-05-29] MEDS: HYDROcodone/APAP 7.5-325MG 1 EACH TAB PO PRN ×2 (03:35→23:33)
[2016-05-29] MEDS: DEXTROSE 5%-0.45% NACL 1,000 ML IV SCH (06:56)
[2016-05-29] MEDS: PANTOPRAZOLE 40 MG TABLET PO SCH (06:56)
[2016-05-29 07:08] LABS: Basophils % (A) 0 %; CH 28.7; CHCM 33.7; Eosinophils # (A) 0.2 k/uL (0-0.7); Eosinophils % (A) 3 %; HCT 42.8 % (39.0-53.0); HDW 2.89; HGB 14.5 gm/dL (13.0-17.5); Luc # (Auto) 0.18; Luc % (Auto) 2; Lymphocytes # (A) 1.6 k/uL (1.0-4.8); Lymphocytes % (A) 21 %; MCH 28.9 pg (25.0-35.0); MCHC 33.8 g/dL (31.0-37.0); MCV 85.7 fL (80.0-100.0); Mean Platelet Volume 6.9; Monocytes # (A) 0.5 k/uL (0-1.0); Monocytes % (A) 6 %; Neutrophils # (A) 5.1 k/uL (1.3-7.7); Neutrophils % (A) 68 %; RDW 14.3 % (11.5-15.5); WBC 7.5 k/uL (3.8-10.6); WBC (Perox) 8.09
[2016-05-29 07:26] LABS: Anion Gap 7 mmol/L; Blood Urea Nitrogen 18 mg/dL (9-20); Calcium 8.4 mg/dL (8.4-10.2); Carbon Dioxide 28 mmol/L (22-30); Chloride 101 mmol/L (98-107); Glucose 125 mg/dL (74-99); Non-African American GFR(MDRD) >60 (>60 ml/min/1.73 sqM); Potassium 3.7 mmol/L (3.5-5.1); Sodium 136 mmol/L (137-145)
--- NOTE | 2016-05-29 09:30 | XR ---
EXAMINATION TYPE: XR chest 1V portable DATE OF EXAM: 05/29/2016 8:57 AM COMPARISON: NONE INDICATION: Pneumothorax TECHNIQUE: Single frontal view of the chest is obtained. FINDINGS: The heart size is normal. The pulmonary vasculature is normal. Right apical pneumothorax is evident. This is increasing from prior study. The basilar loculated pne umothorax may be somewhat smaller than prior. Right-sided chest tube remains present. Extensive M7 is changes are on the right cutaneous tissue. IMPRESSION: 1. Increasing right side pneumothorax. 2. Report was called to Angela the patient's nurse by Dr. Payne by telephone at time of interpretat ion 0925 hours 05/29/2016
[2016-05-29] MEDS: DILTIAZEM CD 180 MG CAP.ER.24H PO SCH (09:37)
[2016-05-29] MEDS: HYDROCHLOROTHIAZIDE 25 MG TAB PO SCH (09:37)
[2016-05-29] MEDS: ASPIRIN 81 MG CHEW PO SCH (09:37)
[2016-05-29] MEDS: METOPROLOL TARTRATE 50 MG TAB PO SCH ×3 (09:37→21:00)
[2016-05-29] MEDS: ATORVASTATIN 40 MG TAB PO SCH (09:37)
[2016-05-29] MEDS: DIAZEPAM 2 MG TAB PO SCH ×3 (09:37→21:00)
[2016-05-29] MEDS: NICOTINE 21MG/24HR PATCH TRANSDERM SCH (09:37)
[2016-05-29] MEDS: HEPARIN SODIUM,PORCINE 5,000 UNIT/ML 1 ML VIAL SQ SCH ×2 (09:37→21:00)
[2016-05-29] MEDS: IPRATROPIUM-ALBUTEROL 3 ML NEB IH SCH ×4 (13:09→20:37)
--- NOTE | 2016-05-29 13:27 | P.PN ---
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 Patient awake and alert, no distress noted, no specific complaints. He is sitting up to the bedside chair. Vital Signs: Afebrile Vital Signs - 24 hr 05/28/16 05/28/16 05/28/16 15:43 15:56 16:00 Temperature 98.8 F Pulse Rate 100 100 Pulse Rate [ 119 H Hide Cleaner ] Pulse Rate [ 75 Pulse Oximetery ] Respiratory 18 Rate Blood Pressure 109/60 [Left Arm] O2 Sat by Pulse 100 Oximetry 05/28/16 05/29/16 05/29/16 20:00 00:00 04:00 Temperature 98.6 F 99.1 F 98.6 F Pulse Rate Pulse Rate [ Hide Cleaner ] Pulse Rate [ 70 74 62 Pulse Oximetery ] Respiratory 18 18 18 Rate Blood Pressure 108/58 132/70 110/55 [Left Arm] O2 Sat by Pulse 100 100 98 Oximetry 05/29/16 05/29/16 08:00 13:09 Temperature 97.6 F Pulse Rate 84 Pulse Rate [ 119 H Hide Cleaner ] Pulse Rate [ 60 Pulse Oximetery ] Respiratory 18 Rate Blood Pressure 115/58 [Left Arm] O2 Sat by Pulse 99 Oximetry Labs: Short CBC 05/29/16 Range/Units 05:49 WBC 7.5 (3.8-10.6) k/uL Hgb 14.5 (13.0-17.5) gm/dL Hct 42.8 (39.0-53.0) % Plt Count 231 (150-450) k/uL Neutrophils # 5.1 (1.3-7.7) k/uL BMP 05/29/16 05:49 Sodium 136 L Potassium 3.7 Chloride 101 Carbon Dioxide 28 BUN 18 Creatinine 1.01 Glucose 125 H Calcium 8.4 IV Fluids: D5.45 normal saline at 75 mL per hour. Lungs: few scattered rhonchi throughout, diminished bilateral bases right greater than left. Respirations are unlabored. O2 sat: 98% on 2 L nasal cannula. I/S: 750 mL, reviewed with the patient the importance of using his incentive spirometry every hour while awake. The patient did give a good return demonstration on the incentive spirometry. Heart: S1S2, regular rhythm and rate, positive for systolic murmur. Remote telemetry showing normal sinus rhythm heart rate 63. Right chest incision clean dry and well approximated. No drainage noted. Chest tube remains in place secured and intact. Abdomen: Soft, Positive bowel sounds present in all 4 quadrants. U/O: adequate, Butterfield catheter for accurate I&O. Chest Tubes: Right pleural chest tube with continuous air leak. Draining thin serosanguineous drainage. 180 mL output in the last 8 hours, 540 mL in the last 24 hours. 24 hr Total: Intake & Output 05/27/16 05/28/16 05/29/16 05/30/16 06:59 06:59 06:59 06:59 Intake Total 3053.8 3190 1310 Output Total 1444 5670 2700 Balance 1609.8 -2480 -1390 Weight 62.5 kg 62 kg 62 kg Active Medications Hydrocodone Bitart/Acetaminophen ([place] 7.5-325) 1 each PO Q6H PRN PRN Reason: Moderate Pain Last Admin: 05/29/16 03:35 Dose: 1 each Albuterol/Ipratropium (Duoneb 0.5 Mg-3 Mg/3 Ml Soln) 3 ml IH RT-Q1H PRN PRN Reason: Shortness Of Breath Or Wheezing Albuterol/Ipratropium (Duoneb 0.5 Mg-3 Mg/3 Ml Soln) 3 ml IH RT-QID [facility] Last Admin: 05/29/16 13:09 Dose: 3 ml Aspirin (Aspirin) 81 mg PO DAILY [facility] Last Admin: 05/29/16 09:37 Dose: 81 mg Atorvastatin Calcium (Lipitor) 40 mg PO DAILY [facility] Last Admin: 05/29/16 09:37 Dose: 40 mg Bisacodyl (Dulcolax) 10 mg RECTAL DAILY PRN PRN Reason: Constipation Diazepam (Valium) 2 mg PO TID [facility] Last Admin: 05/29/16 09:37 Dose: 2 mg Diltiazem HCl (Cardizem Cd) 180 mg PO DAILY [facility] Last Admin: 05/29/16 09:37 Dose: 180 mg Haloperidol Lactate (Haldol) 5 mg IM Q6HR PRN PRN Reason: Agitation or Acute Psychosis Last Admin: 05/28/16 04:45 Dose: 5 mg Heparin Sodium (Porcine) (Heparin) 5,000 unit SQ Q12HR [facility] Last Admin: 05/29/16 09:37 Dose: 5,000 unit Hydrochlorothiazide (Hydrodiuril) 25 mg PO DAILY [facility] Last Admin: 05/29/16 09:37 Dose: 25 mg Bupivacaine HCl 31.3 ml/Hydromorphone HCl 5 mg/ Sodium Chloride 249.8 mls @ 0 mls/hr EPIDURAL .Q0M PRN; Protocol; Per Protocol PRN Reason: Pain Control Last Admin: 05/27/16 14:15 Dose: 88.8 mls Metoclopramide HCl (Reglan) 5 mg IVP Q4HR PRN PRN Reason: Nausea And Vomiting Metoprolol Tartrate (Lopressor) 50 mg PO TID [facility] Last Admin: 05/29/16 09:37 Dose: 50 mg Morphine Sulfate (Morphine Sulfate (Inj)) 2 mg IV Q2HR PRN PRN Reason: Mild Breakthrough Pain Nicotine (Habitrol 21mg/24hr Patch) 1 patch TRANSDERM DAILY [facility] Last Admin: 05/29/16 09:37 Dose: 1 patch Nicotine Polacrilex (Nicorette Gum) 2 mg BUCCAL Q4HR PRN PRN Reason: Nicotine Cravings Ondansetron HCl (Zofran) 4 mg IVP Q8HR PRN PRN Reason: Nausea And Vomiting Pantoprazole Sodium (Protonix) 40 mg PO AC-BRKFST [facility] Last Admin: 05/29/16 06:56 Dose: 40 mg Plan: 1. Pain control per when necessary orders. 2. Wean oxygen as tolerated, pulmonary management per Dr. Suresh's recommendations 3. Encourage use of his incentive spirometry every hour while awake. 4. Increase activity as tolerated, physical therapy to evaluate and treat. 5. Consult social work for discharge placement. 6. Medical management per Dr Albert. 7. Discontinue Butterfield catheter 7. Saline lock IV fluids, discontinue D5 0.45 normal saline. 8. Right pleural chest tube will remain on low continuous wall suction today and will be reevaluated tomorrow to place on waterseal. 9. CBC, BMP, portable chest x-ray in a.m. 10. Further recommendations as patient progresses.
[2016-05-29] MEDS ORDERED: LORATADINE 10 MG TAB PO PRN (17:29)
--- NOTE | 2016-05-29 17:35 | PN ---
A 71-year-old black male postoperative day #2, status post right middle and right lower lobectomy for squamous cell carcinoma. The diagnosis was made by my partner. The patient underwent surgery and he did well. He was actually moved from the recovery area to the 6th floor. The patient is not having any complaints other than the usual pain. Denies any shortness of breath. No fever. No chills. No nausea, vomiting or diarrhea. He seems to be progressing very nicely. He does have a history of gastroesophageal reflux disease and hypertension. His current vital signs reveal temperature 97.6, heart rate 60, respiratory rate 18, blood pressure 115/58, mean 77, 2L saturation 99%. Appears in no acute distress. HEENT is grossly unremarkable. Mucous membranes are moist. No oral lesions. NECK: Supple. Full range of motion. No adenopathy or thyromegaly. Cardiovascular reveals regular rhythm and rate. S1, S2 normal. Heart rate about 70 beats per minute. No murmur. No S3, S4. Lungs reveal diminished breath sounds, particularly on the right side. He does not take deep breaths. A few scattered rhonchi. No wheezes or crackles. ABDOMEN: Soft. Bowel sounds are heard. Extremities are intact. There is no cyanosis, clubbing or edema. Lab data is reviewed. White count is 7.5. Hemoglobin, hematocrit and platelet count all normal. Electrolyte profile looks pretty normal. Chest x-ray shows some postoperative changes on the right side. There is slightly increasing right-sided pneumothorax. Surgery has been notified. Medications are reviewed. They are all appropriate. He is on updrafts. ASSESSMENT: 1. Postoperative day #2, status post right middle and right lower lobectomy for non-small cell lung cancer, squamous cell type. 2. History of hypertension. 3. Gastroesophageal reflux disease. PLAN: The patient is doing reasonably well. Will continue to follow. He is on updrafts. We encouraged incentive spirometry and adequate pain control. No additional recommendations are made.
--- NOTE | 2016-05-29 22:53 | PN ---
DATE OF SERVICE: 05/29/2016 PRESENTING COMPLAINT: Right partial lobectomy. INTERVAL HISTORY: That patient is status post cardiothoracic surgery. Chest tube remains in place. Did tolerate some diet. Had a bowel movement. Lying in bed, tired-appearing. Review systems done for constitutional, cardiovascular, GI, pulmonary; relevant findings as above. Current medications continued. On examination, temperature 97.5, pulse 70, respirations 16, blood pressure 127/85, pulse ox 100% on room air. GENERAL APPEARANCE: Lying in bed, not in distress. EYES: Pupils equal, conjunctivae normal. NECK: JVD not raised. Mass not palpable. RESPIRATORY: Effort normal. LUNGS: Decreased breath sounds on the right side. CARDIOVASCULAR: First and second sounds normal. No edema. ABDOMEN: Soft, nontender. Liver and spleen not palpable. PSYCHIATRY: Alert and oriented x3. Mood and affect normal. SKIN: Right chest wall subcutaneous emphysema and a chest tube in place. INVESTIGATIONS: White count 7.5, hemoglobin 14.5, potassium 3.7. Chest x-ray shows right pneumothorax. ASSESSMENT: 1. Right middle and lower lobe resection for lung cancer, including fourth to eighth intercostal Cryoblation for pain control. 2. Emphysema in a current smoker. 3. Chronic nicotine dependence, patient is a cigarette smoker. 4. Essential hypertension. 5. Gastroesophageal reflux disease. 6. Delirium tremens, improved. 7. Chronic alcohol dependence. 8. Right pneumothorax, iatrogenic, chest tube in place. 9. Subcutaneous emphysema from air leak. PLAN: Continue current medication and treatment plan. The patient is not ( ) anymore. Keep on the current dose of valium today and probably can be taken off in 48 hours.
[2016-05-30] MEDS: MORPHINE SULFATE 2 MG/ML SYRINGE IV PRN ×3 (03:42→21:34)
[2016-05-30 06:10] LABS: Basophils % (A) 0 %; CH 28.8; Eosinophils # (A) 0.2 k/uL (0-0.7); Eosinophils % (A) 2 %; HCT 47.1 % (39.0-53.0); HDW 2.94; HGB 15.9 gm/dL (13.0-17.5); Luc # (Auto) 0.21; Luc % (Auto) 2; Lymphocytes # (A) 1.4 k/uL (1.0-4.8); Lymphocytes % (A) 13 %; MCH 28.8 pg (25.0-35.0); MCHC 33.8 g/dL (31.0-37.0); MCV 85.2 fL (80.0-100.0); Mean Platelet Volume 6.7; Monocytes # (A) 0.4 k/uL (0-1.0); Monocytes % (A) 4 %; Neutrophils # (A) 8.7 k/uL (1.3-7.7); Neutrophils % (A) 80 %; RBC 5.53 m/uL (4.30-5.90); RDW 14.2 % (11.5-15.5); WBC (Perox) 11.43
[2016-05-30 06:26] LABS: Anion Gap 8 mmol/L; Blood Urea Nitrogen 20 mg/dL (9-20); Calcium 8.9 mg/dL (8.4-10.2); Carbon Dioxide 27 mmol/L (22-30); Chloride 101 mmol/L (98-107); Glucose 113 mg/dL (74-99); Non-African American GFR(MDRD) >60 (>60 ml/min/1.73 sqM); Potassium 3.9 mmol/L (3.5-5.1); Sodium 136 mmol/L (137-145)
[2016-05-30] MEDS: PANTOPRAZOLE 40 MG TABLET PO SCH (06:34)
--- NOTE | 2016-05-30 07:53 | XR ---
EXAMINATION TYPE: XR chest 1V portable DATE OF EXAM: 05/30/2016 7:46 AM CLINICAL HISTORY: Postop right lower lobe lobectomy. TECHNIQUE: Single AP portable frontal view of the chest is obtained. COMPARISON: Chest x-ray from one day earlier FINDINGS: A right-sided chest tube is redemonstrated. There is persistent small right apical pneumot horax. Extensive overlying subcutaneous emphysema is seen now extending into the left chest. Left go g is clear. There is right basilar atelectasis and/or infiltrate. Cardiac silhouette size is stable a nd within normal limits with ectatic thoracic aorta. Elevated right hemidiaphragm is present. IMPRESSION: Stable small right apical pneumothorax despite chest tube placement. Worsening subcutaneo us emphysema is noted. Persistent right basilar atelectasis and/or infiltrate.
[2016-05-30] MEDS: HYDROcodone/APAP 7.5-325MG 1 EACH TAB PO PRN ×2 (08:19→14:27)
[2016-05-30] MEDS: HEPARIN SODIUM,PORCINE 5,000 UNIT/ML 1 ML VIAL SQ SCH ×2 (08:21→21:33)
[2016-05-30] MEDS: DIAZEPAM 2 MG TAB PO SCH ×3 (08:21→21:33)
[2016-05-30] MEDS: METOPROLOL TARTRATE 50 MG TAB PO SCH ×3 (08:21→21:34)
[2016-05-30] MEDS: HYDROCHLOROTHIAZIDE 25 MG TAB PO SCH (08:21)
[2016-05-30] MEDS: ASPIRIN 81 MG CHEW PO SCH (08:21)
[2016-05-30] MEDS: ATORVASTATIN 40 MG TAB PO SCH (08:21)
[2016-05-30] MEDS: NICOTINE 21MG/24HR PATCH TRANSDERM SCH (08:21)
[2016-05-30] MEDS: DILTIAZEM CD 180 MG CAP.ER.24H PO SCH (08:21)
[2016-05-30] MEDS: IPRATROPIUM-ALBUTEROL 3 ML NEB IH SCH ×4 (08:24→21:04)
--- NOTE | 2016-05-30 12:05 | P.PN ---
Progress Note - Text Thoracic Surgery Nursing POD: #2, elective right thoracotomy, right lower and middle lobectomy, mediastinal lymph node dissection, cryoablation of intercostal nerves IV through VIII Patient awake and alert, no distress noted, no specific complaints. Vital Signs: Afebrile , T-max 100.2F Vital Signs - 24 hr 05/29/16 05/29/16 05/29/16 12:00 13:09 13:21 Temperature 97.5 F L Pulse Rate 84 84 Pulse Rate [ 119 H Auto Damage Trainee ] Pulse Rate [ 68 Pulse Oximetery ] Respiratory 16 Rate Blood Pressure 147/85 [Left Arm] O2 Sat by Pulse 100 Oximetry 05/29/16 05/29/16 05/29/16 16:00 16:30 16:46 Temperature 97.5 F L Pulse Rate 64 68 Pulse Rate [ 119 H Auto Damage Trainee ] Pulse Rate [ 65 Pulse Oximetery ] Respiratory 16 Rate Blood Pressure 126/61 [Left Arm] O2 Sat by Pulse 96 Oximetry 05/29/16 05/29/16 05/29/16 20:00 20:37 20:46 Temperature 99.1 F Pulse Rate 70 75 Pulse Rate [ Auto Damage Trainee ] Pulse Rate [ 71 Pulse Oximetery ] Respiratory 18 Rate Blood Pressure 148/76 [Left Arm] O2 Sat by Pulse 97 Oximetry 05/30/16 05/30/16 05/30/16 00:00 04:00 08:00 Temperature 100.2 F H 99.5 F 99.1 F Pulse Rate Pulse Rate [ 85 Auto Damage Trainee ] Pulse Rate [ 93 97 85 Pulse Oximetery ] Respiratory 18 18 18 Rate Blood Pressure 123/79 130/88 129/71 [Left Arm] O2 Sat by Pulse 97 98 98 Oximetry 05/30/16 05/30/16 05/30/16 08:24 08:34 11:45 Temperature Pulse Rate 76 76 100 Pulse Rate [ Auto Damage Trainee ] Pulse Rate [ Pulse Oximetery ] Respiratory Rate Blood Pressure [Left Arm] O2 Sat by Pulse Oximetry Labs: Short CBC 05/30/16 Range/Units 05:38 WBC 11.0 H (3.8-10.6) k/uL Hgb 15.9 (13.0-17.5) gm/dL Hct 47.1 (39.0-53.0) % Plt Count 296 (150-450) k/uL Neutrophils # 8.7 H (1.3-7.7) k/uL BMP 05/30/16 05:38 Sodium 136 L Potassium 3.9 Chloride 101 Carbon Dioxide 27 BUN 20 Creatinine 0.80 Glucose 113 H Calcium 8.9 Lungs: Respirations are even and nonlabored, breath sounds diminished on the right O2 sat: 98% on room air Heart: S1S2, regular rate and rhythm, portable telemetry shows a normal sinus rhythm with a rate of 70 Chest incision clean with dressing clean and dry. Positive subcutaneous emphysema to the right chest Abdomen: Soft, Positive bowel sounds present in all 4 quadrants. CBGs: 113-125 mg/dL U/O: Patient is voiding adequate amounts of urine Chest Tubes: Right pleural chest tube with positive air leak drained 220 mL of serous fluid in the last 12 hours Intake & Output 05/28/16 05/29/16 05/30/16 05/31/16 06:59 06:59 06:59 06:59 Intake Total 3053.8 3190 2028 Output Total 1444 5670 4650 Balance 1609.8 -2480 -2622 Weight 62.5 kg 62 kg 61.9 kg Active Medications Hydrocodone Bitart/Acetaminophen ([place] 7.5-325) 1 each PO Q6H PRN PRN Reason: Moderate Pain Last Admin: 05/30/16 08:19 Dose: 1 each Albuterol/Ipratropium (Duoneb 0.5 Mg-3 Mg/3 Ml Soln) 3 ml IH RT-Q1H PRN PRN Reason: Shortness Of Breath Or Wheezing Albuterol/Ipratropium (Duoneb 0.5 Mg-3 Mg/3 Ml Soln) 3 ml IH RT-QID [facility] Last Admin: 05/30/16 11:44 Dose: 3 ml Aspirin (Aspirin) 81 mg PO DAILY [facility] Last Admin: 05/30/16 08:21 Dose: 81 mg Atorvastatin Calcium (Lipitor) 40 mg PO DAILY [facility] Last Admin: 05/30/16 08:21 Dose: 40 mg Bisacodyl (Dulcolax) 10 mg RECTAL DAILY PRN PRN Reason: Constipation Diazepam (Valium) 2 mg PO TID [facility] Last Admin: 05/30/16 08:21 Dose: 2 mg Diltiazem HCl (Cardizem Cd) 180 mg PO DAILY [facility] Last Admin: 05/30/16 08:21 Dose: 180 mg Haloperidol Lactate (Haldol) 5 mg IM Q6HR PRN PRN Reason: Agitation or Acute Psychosis Last Admin: 05/28/16 04:45 Dose: 5 mg Heparin Sodium (Porcine) (Heparin) 5,000 unit SQ Q12HR [facility] Last Admin: 05/30/16 08:21 Dose: 5,000 unit Hydrochlorothiazide (Hydrodiuril) 25 mg PO DAILY [facility] Last Admin: 05/30/16 08:21 Dose: 25 mg Bupivacaine HCl 31.3 ml/Hydromorphone HCl 5 mg/ Sodium Chloride 249.8 mls @ 0 mls/hr EPIDURAL .Q0M PRN; Protocol; Per Protocol PRN Reason: Pain Control Last Admin: 05/27/16 14:15 Dose: 88.8 mls Loratadine (Claritin) 5 mg PO Q12HR PRN PRN Reason: Allergy Symptoms Last Admin: 05/29/16 17:53 Dose: 5 mg Metoclopramide HCl (Reglan) 5 mg IVP Q4HR PRN PRN Reason: Nausea And Vomiting Metoprolol Tartrate (Lopressor) 50 mg PO TID [facility] Last Admin: 05/30/16 08:21 Dose: 50 mg Morphine Sulfate (Morphine Sulfate (Inj)) 2 mg IV Q2HR PRN PRN Reason: Mild Breakthrough Pain Last Admin: 05/30/16 03:42 Dose: 2 mg Nicotine (Habitrol 21mg/24hr Patch) 1 patch TRANSDERM DAILY [facility] Last Admin: 05/30/16 08:21 Dose: 1 patch Nicotine Polacrilex (Nicorette Gum) 2 mg BUCCAL Q4HR PRN PRN Reason: Nicotine Cravings Ondansetron HCl (Zofran) 4 mg IVP Q8HR PRN PRN Reason: Nausea And Vomiting Pantoprazole Sodium (Protonix) 40 mg PO AC-BRKFST [facility] Last Admin: 05/30/16 06:34 Dose: 40 mg Plan: Chest tube placed on waterseal drainage. Will check chest x-ray@1300, if unchanged from this morning will continue waterseal. Continue aggressive pulmonary toilet and increase in activities as tolerated
--- NOTE | 2016-05-30 12:52 | P.CONS ---
History of Present Illness - Chief Complaint medical debility - History of Present Illness I had the op to see patient for inpatient rehab consultation with regard to medical debility. He was admitted to [facility] May 27 with small cell cancer lung. Admitted for underwent elective right lower and middle lobectomies performed by Dr. Negron. Seen medically by Drs. Suresh and Roosevelt.chest x-rays followed to demonstrate right apical pneumothorax and subcutaneous emphysema. PT and OT prescribed. Previous functional history, as elicited from patient: 71-year-old left-handed male who is and lives in a first-floor apartment with daughter. Retired. Daughter does the laundry and driving. Patient independent with standup shower and use of PLV which she's been using for the last 10 years. Smokes three-quarter pack a day and drinks a half a pint a day. Patient can do his own cooking but eats out generally. Family history diabetes in both parents. Review of Systems Review of systems: ENT: Denies sneezes or discharge. Eyes: Denies discharge or photophobia. Cardiac: Denies chest pain or palpitation. Pulmonary: Denies cough or shortness of breath.some right-sided chest discomfort related to thoracotomy. Gastrointestinal: Denies nausea, emesis, constipation, diarrhea. Genitourinary: Denies discharge or frequency. Musculoskeletal: Denies muscle or bone aches. Neurologic: Denies motor or sensory change.definitely denies any weakness despite multiple questioning. Endocrine: Denies shakes or sweats. Oncology: Denies cancers. Dermatologic: Denies rash, itching, pruritus. ALLERGY/immunology: Denies sneezes, rashes. Past Medical History Past Medical History: Cancer, Heart Failure, CVA/TIA, GERD/Reflux, Hypertension Additional Past Medical History / Comment(s): recent admission to [facility] for difficulty breathing, coughing up blood and mass in lung- recent dx. lung cancer, no longer coughing up blood, Hx left side is weak compared to the right side related to his prior stroke,gait slightly unsteady, had one episode several yrs. ago of CHF he thinks-no current problems History of Any Multi-Drug Resistant Organisms: None Reported Past Surgical History: No Surgical Hx Reported Additional Past Surgical History / Comment(s): bronchoscopy Past Anesthesia/Blood Transfusion Reactions: No Reported Reaction Additional Past Anesthesia/Blood Transfusion Reaction / Comm: unknown anesthesia and family hx Past Psychological History: No Psychological Hx Reported Smoking Status: Former smoker Past Alcohol Use History: Daily Additional Past Alcohol Use History / Comment(s): down to 3/4ppd, has smoked for 50 yrs., drinks 1/2 pint Black daily Past Drug Use History: None Reported - Past Family History Father History Unknown: Yes Mother History Unknown: Yes Medications and Allergies Home Medications Medication Instructions Recorded Confirmed Type Diltiazem HCl [Diltiazem 24Hr ER] 180 mg PO QAM 05/21/14 05/27/16 History Omeprazole 20 mg PO QAM 05/21/14 05/27/16 History Hydrochlorothiazide 25 mg PO DAILY 04/18/16 05/27/16 History HYDROcodone/APAP 7.5-325MG [[place] 1 tab PO Q6HR PRN 05/23/16 05/27/16 History 7.5-325] Labetalol [Trandate] 200 mg PO DAILY 05/27/16 05/27/16 History Allergies Allergy/AdvReac Type Severity Reaction Status Date / Time No Known Allergies Allergy Verified 05/27/16 17:02 Physical Exam Vitals: Vital Signs Temp Pulse Pulse Pulse Resp BP Pulse Ox 05/30/16 11:57 71 05/30/16 11:45 100 05/30/16 08:34 76 05/30/16 08:24 76 05/30/16 08:00 99.1 F 85 85 18 129/71 98 05/30/16 04:00 99.5 F 97 18 130/88 98 05/30/16 00:00 100.2 F H 93 18 123/79 97 05/29/16 20:46 75 05/29/16 20:37 70 05/29/16 20:00 99.1 F 71 18 148/76 97 05/29/16 16:46 68 05/29/16 16:30 64 05/29/16 16:00 97.5 F L 119 H 65 16 126/61 96 05/29/16 13:21 84 05/29/16 13:09 84 Intake and Output 05/29/16 05/30/16 05/30/16 22:59 06:59 14:59 Intake Total 118 400 Output Total 900 120 Balance -782 280 Intake: Oral 118 400 Output: Chest Tube Drainage 200 120 Chest Tube Right 200 120 Urine 700 Other: Voiding Method Urinal Urinal Urinal # Voids 1 1 # Bowel Movements 0 Weight 61.9 kg Skin: Good color, texture, turgor. General: Medium build and comfortable appearance. Head: Normocephalic, atraumatic. Eyes: Symmetric. Pupils equal round. Ears: Symmetric. Hearing within normal limits. Mouth: Clear. Neck: Supple. Carotid without bruit. Cardiac: Regular rate and rhythm. Lungs: Clear anteriorly and posteriorly.did not examine chest as being followed closely by surgeon currently. Abdomen: Soft active nontender. Extremities: Normal tone. Neurological: Mental status: Alert, cooperative, pleasant. Cranial nerves: Symmetric facial tone and trapezius. Motor: Normal strength and isolation right arm and leg. Left arm in flexion synergy especially at rest. Left leg in extension synergy. Has difficulty elevating left leg off of bed. Sensation: Intact throughout. DTRs: Symmetric and equal throughout.generally appear absent though. Mobility: did not attempt to stand. Results CBC & Chem 7: 05/30/16 05:38 05/30/16 05:38 Labs: Abnormal Lab Results - Last 24 Hours (Table) 05/30/16 05/30/16 Range/Units 05:38 05:38 WBC 11.0 H (3.8-10.6) k/uL Neutrophils # 8.7 H (1.3-7.7) k/uL Sodium 136 L (137-145) mmol/L Glucose 113 H (74-99) mg/dL Chest x-ray: report reviewed (chest x-rays followed for right apical pneumothorax as well as subcutaneous emphysema.) Assessment and Plan (1) Cavitating mass in right lower lung lobe Status: Acute Plan: impression: 1. Medical debility. 2. Small cell lung cancer status post right middle and lower lobectomies. 3. History of stroke and lifting pierces. 4. Alcohol abuse. 5. History of heart failure. 6. Hypertension. 7. Reflux. Comments and plan: At this time PT and OT are ordered. Await their initiation. Patient is aware that he has some stability issues despite reporting that he does not feel weak. He is mentioned to me that he is aware of possible need of further therapy prior to return to home. We'll follow closely for possible rehab versus subacute rehab recommendation.
--- NOTE | 2016-05-30 13:25 | XR ---
EXAMINATION TYPE: XR chest 2V DATE OF EXAM: 05/30/2016 1:17 PM COMPARISON: Chest x-ray earlier today HISTORY: Postoperative right lobectomy progress study. TECHNIQUE: Frontal and lateral views of the chest are obtained. FINDINGS: There is marked subcutaneous emphysema redemonstrated most prominent over the right chest but extending over the left thorax and also identified significantly posteriorly on the new lateral v iew. This makes evaluation suboptimal. There is suggestion of increasing moderate size right upper nicole ng pneumothorax though there are 2 curvilinear lines identified near the level of the right posterior fifth and sixth ribs. Left medial chest tube is again seen. No mediastinal shift is seen. There is p atchy right medial basilar atelectasis and/or infiltrate. Left lung remains clear. Cardiac silhouette size is within normal limits. Osseous structures are intact. IMPRESSION: Persistent extensive subcutaneous emphysema with now moderate size right upper pneumotho rax suspected despite chest tube placement. Results communicated to patient's nurse via telephone at time of dictation.
--- NOTE | 2016-05-30 17:38 | P.PN ---
Subjective Principal diagnosis: Squamous cell carcinoma of the right lung This is a pleasant 71-year-old gentleman who was recently diagnosed with squamous cell carcinoma. He is now status post right middle and right lower lobectomies performed by Dr. Negron on 05/27/2016. He is seen again today in follow-up on the selective care unit. He remains awake and alert in no acute distress. Today's chest x-ray shows persistent extensive subcutaneous emphysema and a now moderate right upper lobe pneumothorax. The chest tube is in place. He was placed back on suction. Currently, he is resting fairly comfortably in bed. He denies any worsening shortness of breath, cough or congestion. He is maintaining good O2 saturations up to 100% on room air. He' s been afebrile. His right-sided chest discomfort is fairly well controlled. Objective - Vital Signs Vital signs: Vital Signs Temp 98.1 F 05/30/16 12:00 Pulse 88 05/30/16 16:35 Resp 18 05/30/16 12:00 BP 128/72 05/30/16 12:00 Pulse Ox 100 05/30/16 12:00 Intake & Output 05/29/16 05/30/16 05/30/16 18:59 06:59 18:59 Intake Total 2449 115 6416 Output Total 4230 420 200 Balance -2602 -20 880 Weight 62 kg 61.9 kg 61.9 kg Intake: Oral 3150 559 0030 Output: Chest Tube Drainage 330 220 Chest Tube Right 330 220 Urine 3900 200 200 Uretheral ([place]) 1000 Other: Voiding Method Indwelling Catheter Urinal Urinal # Voids 0 1 1 # Bowel Movements 0 - Exam GENERAL EXAM: Alert, fairly comfortable in no apparent distress. HEAD: Normocephalic. EYES: Normal reaction of pupils, equal size. NOSE: Clear with pink turbinates. THROAT: No erythema or exudates. NECK: No masses, no JVD. CHEST: No chest wall deformity. LUNGS: Equal air entry with crackles, diminished right lung. Right chest tube remains in place. CVS: S1 and S2 normal with no audible murmurs, regular rhythm. ABDOMEN: No hepatosplenomegaly, normal bowel sounds, no guarding or rigidity. SPINE: No scoliosis or deformity SKIN: No rashes CENTRAL NERVOUS SYSTEM: No focal deficits, tone is normal in all 4 extremities. Extremities: There is no significant peripheral edema. No clubbing, no cyanosis. Peripheral pulses are intact. - Labs CBC & Chem 7: 05/30/16 05:38 05/30/16 05:38 Labs: Abnormal Lab Results - Last 24 Hours (Table) 05/30/16 05/30/16 Range/Units 05:38 05:38 WBC 11.0 H (3.8-10.6) k/uL Neutrophils # 8.7 H (1.3-7.7) k/uL Sodium 136 L (137-145) mmol/L Glucose 113 H (74-99) mg/dL Assessment and Plan Plan: Impression: #1 Squamous cell carcinoma. Status post right middle and right lower lobectomy , postoperative day #3. #2 Persistent extensive subcutaneous emphysema with an moderate right upper pneumothorax secondary to above. #3 Chronic and ongoing tobacco dependence. #4 Hypertension. #5 Gastroesophageal reflux fluid disease. Plan: The patient was seen and evaluated by Dr. Fisher. His chest x-ray and labs were reviewed. The patient's chest tube remains to wall suction. He is currently stable from the pulmonary standpoint. We'll continue with his current medications. We'll continue to increase his activity as tolerated. He is again encouraged regarding the increased use of the incentive spirometer and cough and deep breathing. He is also encouraged regarding the importance of complete smoking cessation. We'll await pathology results. We will continue to follow make further recommendations based on his clinical status.
[2016-05-31] MEDS: HYDROcodone/APAP 7.5-325MG 1 EACH TAB PO PRN ×2 (02:37→10:56)
[2016-05-31 06:39] LABS: Basophils % (A) 0 %; CH 28.4; CHCM 33.5; Eosinophils # (A) 0.2 k/uL (0-0.7); Eosinophils % (A) 3 %; HCT 46.4 % (39.0-53.0); HDW 2.84; HGB 15.7 gm/dL (13.0-17.5); Luc # (Auto) 0.13; Luc % (Auto) 2; Lymphocytes # (A) 1.5 k/uL (1.0-4.8); Lymphocytes % (A) 20 %; MCH 28.8 pg (25.0-35.0); MCHC 33.7 g/dL (31.0-37.0); MCV 85.4 fL (80.0-100.0); Mean Platelet Volume 6.9; Monocytes # (A) 0.5 k/uL (0-1.0); Monocytes % (A) 6 %; Neutrophils # (A) 5.1 k/uL (1.3-7.7); Neutrophils % (A) 69 %; RBC 5.43 m/uL (4.30-5.90); RDW 14.4 % (11.5-15.5); WBC 7.4 k/uL (3.8-10.6); WBC (Perox) 7.59
[2016-05-31] MEDS: PANTOPRAZOLE 40 MG TABLET PO SCH (06:43)
[2016-05-31 06:46] LABS: Anion Gap 9 mmol/L; Blood Urea Nitrogen 19 mg/dL (9-20); Calcium 8.9 mg/dL (8.4-10.2); Carbon Dioxide 30 mmol/L (22-30); Chloride 96 mmol/L (98-107); Glucose 105 mg/dL (74-99); Magnesium 1.5 mg/dL (1.6-2.3); Non-African American GFR(MDRD) >60 (>60 ml/min/1.73 sqM); Phosphorous 3.9 mg/dL (2.5-4.5); Potassium 3.9 mmol/L (3.5-5.1); Sodium 135 mmol/L (137-145)
--- NOTE | 2016-05-31 07:27 | PN ---
DATE OF SERVICE: 05/30/2016 PRESENTING COMPLAINT: Right partial lobectomy. INTERVAL HISTORY: This patient is status post right middle and lower lobe lobectomy. Chest tube remains in place. Chest x-ray did show apical pneumothorax still present. Air leak is still present. Patient is tolerating a diet. For DTs, patient is put on Valium, has been stable from that, has been out of bed. He states has had a bowel movement. Has been tolerating a diet. Breathing is stable. Review of systems done for constitutional, cardiovascular, GI, pulmonary; relevant findings as above. Current medications are reviewed that include DuoNeb. On examination, temperature 98.1, pulse 88, respirations 20, blood pressure 128/72, pulse ox 100% on room air. GENERAL APPEARANCE: Propped up in bed, awake. EYES: Pupils equal. Conjunctivae normal. NECK: JVD not raised. Mass not palpable. RESPIRATORY: Effort normal. LUNGS: Diminished breath sounds. CARDIOVASCULAR: First and second sounds normal. No edema. ABDOMEN: Soft, nontender. Liver and spleen not palpable. PSYCHIATRY: Alert and oriented x3. Mood and affect normal. CHEST WALL: Right chest tube remains in place with subcutaneous emphysema. INVESTIGATIONS: White count 11, hemoglobin 15.9. Potassium 3.9. Chest x-ray shows right upper pneumothorax and subcutaneous emphysema. Chest is also hyperinflated. ASSESSMENT: 1. Right middle and lower lobe resection for lung cancer including 4 to 8 intercostal cryoablation for pain control. 2. Emphysema in a current smoker. 3. Chronic nicotine dependence. The patient is a cigarette smoker. 4. Essential hypertension. 5. Gastroesophageal reflux disease. 6. Delirium tremens, improved, currently on Valium. 7. Chronic alcohol dependence. 8. Right pneumothorax iatrogenic. Chest tube in place. Still is significant to moderate in size. 9. Subcutaneous emphysema from air leak. PLAN: At this point, spoke to the nurses, scale back on the Valium. Have the patient sit up on a chair. Patient's ( ) of Valium will cut back to 1 mg 3 times a day. Will follow.
[2016-05-31] MEDS ORDERED: Magnesium Replacement Protocol 1 EACH MISC MISCELLANE PRN (07:45)
--- NOTE | 2016-05-31 07:46 | XR ---
EXAMINATION TYPE: XR chest 1V portable DATE OF EXAM: 05/31/2016 7:33 AM COMPARISON: 05/30/2016 HISTORY: Post op Right Middle/lower lobectomy FINDINGS: Right-sided chest tube is in place as well as postoperative changes of the partial right-sided lobect shilpa. There is extensive subcutaneous emphysematous air limiting evaluation for possible pneumothorax. Curvilinear density seen medially which may reflect persistent pneumothorax. Correlate clinically. T he left lung is hyperinflated. Right-sided volume loss noted. Cardiomediastinal structures are stable . IMPRESSION: 1. Essentially Stable portable chest. Clinical correlation and follow up until resolution is recomm ended.
[2016-05-31] MEDS: HEPARIN SODIUM,PORCINE 5,000 UNIT/ML 1 ML VIAL SQ SCH ×2 (08:06→21:00)
[2016-05-31] MEDS: DILTIAZEM CD 180 MG CAP.ER.24H PO SCH (08:06)
[2016-05-31] MEDS: ATORVASTATIN 40 MG TAB PO SCH (08:06)
[2016-05-31] MEDS: NICOTINE 21MG/24HR PATCH TRANSDERM SCH (08:07)
[2016-05-31] MEDS: METOPROLOL TARTRATE 50 MG TAB PO SCH ×3 (08:07→21:00)
[2016-05-31] MEDS: ASPIRIN 81 MG CHEW PO SCH (08:07)
[2016-05-31] MEDS: HYDROCHLOROTHIAZIDE 25 MG TAB PO SCH (08:07)
[2016-05-31] MEDS: DIAZEPAM 2 MG TAB PO SCH ×3 (08:35→21:00)
[2016-05-31] MEDS: MORPHINE SULFATE 2 MG/ML SYRINGE IV PRN ×3 (08:39→21:01)
[2016-05-31] MEDS: MAGNESIUM SULFATE-D5W PMX 1 GM in DEXTROSE/WATER 1 100ML.BAG IVPB SCH ×2 (08:39→10:35)
[2016-05-31] MEDS: IPRATROPIUM-ALBUTEROL 3 ML NEB IH SCH ×4 (08:42→21:58)
--- NOTE | 2016-05-31 13:35 | P.PN ---
Subjective Principal diagnosis: Squamous cell carcinoma of the right lung This is a pleasant 71-year-old gentleman who was recently diagnosed with squamous cell carcinoma. He is now status post right middle and right lower lobectomies performed by Dr. Negron on 05/27/2016. He is seen again today in follow-up on the selective care unit. He remains awake and alert in no acute distress. Today's chest x-ray shows persistent extensive subcutaneous emphysema and a now moderate right upper lobe pneumothorax. The chest tube is in place. He was placed back on suction. Currently, he is resting fairly comfortably in bed. He denies any worsening shortness of breath, cough or congestion. He is maintaining good O2 saturations up to 100% on room air. He' s been afebrile. His right-sided chest discomfort is fairly well controlled. The patient is seen again today in follow-up on 05/31/2016 on the selective care unit. He is currently awake and alert in no acute distress. He states his breathing is somewhat easier today as compared to yesterday. He continues to work with his incentive spirometer. His chest tube remains in place. There is still an air leak. His chest x-ray does not show any significant pneumothorax. He is maintaining good O2 saturations in the upper 90s on room air. He remains afebrile. Objective - Vital Signs Vital signs: Vital Signs Temp 97.8 F 05/31/16 12:00 Pulse 100 05/31/16 13:30 Resp 16 05/31/16 12:00 BP 110/70 05/31/16 12:00 Pulse Ox 96 05/31/16 12:00 Intake & Output 05/30/16 05/31/16 05/31/16 18:59 06:59 18:59 Intake Total 1880 0 120 Output Total 650 230 200 Balance 1230 -230 -80 Weight 61.9 kg 64 kg Intake: Intake, IV Titration 0 Amount Lactated Ringers 1,000 ml 0 As IV .[facility]Vaccinogen ONE Rx#: [id number] Oral 1880 120 Output: Chest Tube Drainage 105 Chest Tube Right 105 Drainage 250 Right Lower Chest 250 Urine 400 125 200 Other: Voiding Method Urinal # Voids 1 1 # Bowel Movements 0 - Exam GENERAL EXAM: Alert, fairly comfortable in no apparent distress. HEAD: Normocephalic. EYES: Normal reaction of pupils, equal size. NOSE: Clear with pink turbinates. THROAT: No erythema or exudates. NECK: No masses, no JVD. CHEST: No chest wall deformity. LUNGS: Equal air entry with crackles, diminished right lung. Right chest tube remains in place. CVS: S1 and S2 normal with no audible murmurs, regular rhythm. ABDOMEN: No hepatosplenomegaly, normal bowel sounds, no guarding or rigidity. SPINE: No scoliosis or deformity SKIN: No rashes CENTRAL NERVOUS SYSTEM: No focal deficits, tone is normal in all 4 extremities. Extremities: There is no significant peripheral edema. No clubbing, no cyanosis. Peripheral pulses are intact. - Labs CBC & Chem 7: 05/31/16 05:41 05/31/16 05:41 Labs: Abnormal Lab Results - Last 24 Hours (Table) 05/31/16 Range/Units 05:41 Sodium 135 L (137-145) mmol/L Chloride 96 L (98-107) mmol/L Glucose 105 H (74-99) mg/dL Magnesium 1.5 L (1.6-2.3) mg/dL Assessment and Plan Plan: Impression: #1 Squamous cell carcinoma. Status post right middle and right lower lobectomy , postoperative day #4. #2 Persistent extensive subcutaneous emphysema with an moderate right upper pneumothorax secondary to above. #3 Chronic and ongoing tobacco dependence. #4 Hypertension. #5 Gastroesophageal reflux fluid disease. Plan: The patient was seen and evaluated by Dr. Fisher. His chest x-ray and labs were reviewed. No significant pneumothorax. Continued subcutaneous emphysema. The patient's chest tube remains to wall suction. He is currently stable from the pulmonary standpoint. We'll continue with his current medications. We 'll continue to increase his activity as tolerated. He is again encouraged regarding the increased use of the incentive spirometer and cough and deep breathing. He is also encouraged regarding the importance of complete smoking cessation. We'll await pathology results. We will continue to follow make further recommendations based on his clinical status.
[2016-05-31 15:55] LABS: Potassium 3.7 mmol/L (3.5-5.1)
--- NOTE | 2016-05-31 16:57 | P.PN ---
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 Patient awake and alert, no distress noted, no specific complaints. He is sitting up to the bedside chair. Vital Signs: Afebrile Vital Signs - 24 hr 05/30/16 05/30/16 05/30/16 20:00 20:56 21:09 Temperature 97.4 F L Pulse Rate 80 88 Pulse Rate [ 75 Pulse Oximetery ] Respiratory 16 Rate Blood Pressure 145/89 [Left Arm] O2 Sat by Pulse 99 Oximetry 05/31/16 05/31/16 05/31/16 00:00 03:41 03:42 Temperature 97.4 F L 97.5 F L Pulse Rate Pulse Rate [ 75 75 75 Pulse Oximetery ] Respiratory 16 16 16 Rate Blood Pressure 143/85 147/79 [Left Arm] O2 Sat by Pulse 99 100 Oximetry 05/31/16 05/31/16 05/31/16 08:00 08:43 08:51 Temperature 97.8 F Pulse Rate 104 H 100 Pulse Rate [ 87 Pulse Oximetery ] Respiratory 16 Rate Blood Pressure 150/87 [Left Arm] O2 Sat by Pulse 96 100 Oximetry 05/31/16 05/31/16 05/31/16 12:00 13:17 13:30 Temperature 97.8 F Pulse Rate 96 100 Pulse Rate [ 97 Pulse Oximetery ] Respiratory 16 Rate Blood Pressure 110/70 [Left Arm] O2 Sat by Pulse 96 Oximetry 05/31/16 16:00 Temperature 97.8 F Pulse Rate Pulse Rate [ 77 Pulse Oximetery ] Respiratory 16 Rate Blood Pressure 130/70 [Left Arm] O2 Sat by Pulse 98 Oximetry Labs: Short CBC 05/31/16 Range/Units 05:41 WBC 7.4 (3.8-10.6) k/uL Hgb 15.7 (13.0-17.5) gm/dL Hct 46.4 (39.0-53.0) % Plt Count 303 (150-450) k/uL Neutrophils # 5.1 (1.3-7.7) k/uL BMP 05/31/16 05/31/16 05:41 15:35 Sodium 135 L Potassium 3.9 3.7 Chloride 96 L Carbon Dioxide 30 BUN 19 Creatinine 0.86 Glucose 105 H Calcium 8.9 Lungs: Few scattered rhonchi throughout, diminished bilateral bases right greater than left. Respirations are unlabored. O2 sat: 98% on room air. I/S: 752,000 mL, reviewed with the patient importance of using his incentive spirometry every hour while awake. The patient did demonstrate good use on his incentive spirometry. Heart: S1S2, regular rhythm and rate, positive systolic murmur. Remote telemetry showing normal sinus rhythm heart rate 89. Right chest incision clean dry and well approximated. No drainage noted. Right chest tube remains in place. Abdomen: Soft, Positive bowel sounds present in all 4 quadrants. U/O: Adequate. Chest Tubes: Right pleural chest tube with intermittent air leak, remains to low continuous wall suction. Draining thin serosanguineous drainage. 60 mL output in the last 8 hours, 250 mL output in the last 24 hours. 24 hr Total: Intake & Output 05/29/16 05/30/16 05/31/16 06/01/16 06:59 06:59 06:59 06:59 Intake Total 3190 2028 1880 440 Output Total 5670 4950 880 400 Balance -2480 -2922 1000 40 Weight 62 kg 61.9 kg 64 kg Active Medications Hydrocodone Bitart/Acetaminophen ([place] 7.5-325) 1 each PO Q6H PRN PRN Reason: Moderate Pain Last Admin: 05/31/16 10:56 Dose: 1 each Albuterol/Ipratropium (Duoneb 0.5 Mg-3 Mg/3 Ml Soln) 3 ml IH RT-Q1H PRN PRN Reason: Shortness Of Breath Or Wheezing Albuterol/Ipratropium (Duoneb 0.5 Mg-3 Mg/3 Ml Soln) 3 ml IH RT-QID [facility] [place] Last Admin: 05/31/16 16:50 Dose: 3 ml Aspirin (Aspirin) 81 mg PO DAILY [facility] [place] Last Admin: 05/31/16 08:07 Dose: 81 mg Atorvastatin Calcium (Lipitor) 40 mg PO DAILY [facility] [place] Last Admin: 05/31/16 08:06 Dose: 40 mg Bisacodyl (Dulcolax) 10 mg RECTAL DAILY PRN PRN Reason: Constipation Diazepam (Valium) 1 mg PO TID [facility] [place] Last Admin: 05/31/16 15:54 Dose: 1 mg Diltiazem HCl (Cardizem Cd) 180 mg PO DAILY [facility] [place] Last Admin: 05/31/16 08:06 Dose: 180 mg Haloperidol Lactate (Haldol) 5 mg IM Q6HR PRN PRN Reason: Agitation or Acute Psychosis Last Admin: 05/28/16 04:45 Dose: 5 mg Heparin Sodium (Porcine) (Heparin) 5,000 unit SQ Q12HR [facility] [place] Last Admin: 05/31/16 08:06 Dose: 5,000 unit Hydrochlorothiazide (Hydrodiuril) 25 mg PO DAILY [facility] [place] Last Admin: 05/31/16 08:07 Dose: 25 mg Bupivacaine HCl 31.3 ml/Hydromorphone HCl 5 mg/ Sodium Chloride 249.8 mls @ 0 mls/hr EPIDURAL .Q0M PRN; Protocol; Per Protocol PRN Reason: Pain Control Last Admin: 05/27/16 14:15 Dose: 88.8 mls Loratadine (Claritin) 5 mg PO Q12HR PRN PRN Reason: Allergy Symptoms Last Admin: 05/29/16 17:53 Dose: 5 mg Metoclopramide HCl (Reglan) 5 mg IVP Q4HR PRN PRN Reason: Nausea And Vomiting Metoprolol Tartrate (Lopressor) 50 mg PO TID [facility] [place] Last Admin: 05/31/16 15:54 Dose: 50 mg Miscellaneous Information (Magnesium Per Protocol) 1 each MISCELLANE DAILY PRN ; Protocol PRN Reason: Per Protocol Morphine Sulfate (Morphine Sulfate (Inj)) 2 mg IV Q2HR PRN PRN Reason: Mild Breakthrough Pain Last Admin: 05/31/16 15:54 Dose: 2 mg Nicotine (Habitrol 21mg/24hr Patch) 1 patch TRANSDERM DAILY [facility] [place] Last Admin: 05/31/16 08:07 Dose: 1 patch Nicotine Polacrilex (Nicorette Gum) 2 mg BUCCAL Q4HR PRN PRN Reason: Nicotine Cravings Ondansetron HCl (Zofran) 4 mg IVP Q8HR PRN PRN Reason: Nausea And Vomiting Pantoprazole Sodium (Protonix) 40 mg PO AC-BRKFST [facility] [place] Last Admin: 05/31/16 06:43 Dose: 40 mg Plan: 1. Pain control per when necessary orders. 2. Wean oxygen as tolerated, pulmonary management per Dr. Fisher's recommendations 3. Encourage use of his incentive spirometry every hour while awake. 4. Increase activity as tolerated, physical therapy to evaluate and treat. 5. Consult social work for discharge placement. Rehab placement. 6. Medical management per Dr Albert. 7. Right pleural chest tube will remain on low continuous wall suction today and will be reevaluated tomorrow to place on waterseal. 7. Chest x-ray in a.m. 8. Magnesium replacement per protocol, magnesium level I.5. 9. Further recommendations as patient progresses.
[2016-05-31] MEDS ORDERED: Potassium Replacement Protocol 1 EACH MISC MISCELLANE PRN (16:58)
[2016-05-31] MEDS ORDERED: POTASSIUM CHLORIDE ER 20 MEQ TAB.ER PO SCH (18:00)
--- NOTE | 2016-05-31 23:12 | PN ---
DATE OF SERVICE: 05/31/2016 PRESENTING COMPLAINT: Right partial lobectomy. INTERVAL HISTORY: This patient is status post right middle and lower lobectomy. Chest tube remains in place. Chest x-ray did show no appreciable pneumothorax. Air leak is still present. Patient is tolerating a diet. Patient is on Valium for DTs, which was reduced on 05/30 and has been stable from that. Patient has been out of bed. Patient states he has had a bowel movement. Patient has been tolerating his diet well. Breathing is stable. REVIEW OF SYSTEMS: For constitutional, cardiovascular, GI, pulmonary completed; relevant findings as above. Current medications were reviewed and they include DuoNeb. On exam, temperature 97.8, pulse 97, respirations 16, blood pressure 110/70, pulse ox 96% on room air. GENERAL APPEARANCE: Patient awake, sitting up in bed. EYES: Pupils equal. Conjunctivae normal. NECK: JVD not raised. Mass not palpable. RESPIRATORY: Effort normal. LUNGS: Diminished breath sounds bilaterally. CARDIOVASCULAR: First and second sounds are normal. No edema noted. ABDOMEN: Soft, non-tender. Liver and spleen not palpable. PSYCHIATRIC: Alert and oriented x3. Mood and affect normal. CHEST WALL: Right chest tube remains in place with subcutaneous emphysema. INVESTIGATIONS: White blood cell count 7.4, hemoglobin 15.7. Sodium 135, potassium 3.9. BUN 19, creatinine 0.86. ASSESSMENT: 1. Right middle and lower lobe resection for lung cancer, including 4 to 8 intercostal cryoablation for pain control. 2. Emphysema in a current smoker. 3. Chronic nicotine dependence. The patient is a cigarette smoker. 4. Essential hypertension. 5. Gastroesophageal reflux disease. 6. Delirium tremens, improved. Currently on Valium. 7. Chronic alcohol dependence. 8. Right pneumothorax, iatrogenic. Chest tube in place. Still significant to moderate in size. 9. Subcutaneous emphysema from air leak. PLAN: At this point, mobilizing the patient and having the patient sit in a chair. Patient is tolerating the new Valium dosage of 1 mg 3 times a day. Will continue to follow. Rounds were performed on the patient by me and nurse practitioner and attending Dr. Albert. The relevant and fischer points of rounds and the diagnosis and plan are as indicated above.
[2016-06-01] MEDS: MORPHINE SULFATE 2 MG/ML SYRINGE IV PRN (03:36)
[2016-06-01 06:37] LABS: Anion Gap 10 mmol/L; Blood Urea Nitrogen 19 mg/dL (9-20); Calcium 9.1 mg/dL (8.4-10.2); Carbon Dioxide 28 mmol/L (22-30); Chloride 98 mmol/L (98-107); Glucose 122 mg/dL (74-99); Magnesium 1.7 mg/dL (1.6-2.3); Non-African American GFR(MDRD) >60 (>60 ml/min/1.73 sqM); Potassium 4.1 mmol/L (3.5-5.1); Sodium 136 mmol/L (137-145)
[2016-06-01] MEDS: PANTOPRAZOLE 40 MG TABLET PO SCH (06:59)
[2016-06-01] MEDS ORDERED: Magnesium Replacement Protocol 1 EACH MISC MISCELLANE PRN (07:31)
[2016-06-01] MEDS: HYDROCHLOROTHIAZIDE 25 MG TAB PO SCH (09:08)
[2016-06-01] MEDS: NICOTINE 21MG/24HR PATCH TRANSDERM SCH (09:08)
[2016-06-01] MEDS: HEPARIN SODIUM,PORCINE 5,000 UNIT/ML 1 ML VIAL SQ SCH ×2 (09:08→21:24)
[2016-06-01] MEDS: ASPIRIN 81 MG CHEW PO SCH (09:08)
[2016-06-01] MEDS: ATORVASTATIN 40 MG TAB PO SCH (09:08)
[2016-06-01] MEDS: DILTIAZEM CD 180 MG CAP.ER.24H PO SCH (09:08)
[2016-06-01] MEDS: METOPROLOL TARTRATE 50 MG TAB PO SCH ×3 (09:08→21:23)
[2016-06-01] MEDS: MAGNESIUM SULFATE-D5W PMX 1 GM in DEXTROSE/WATER 1 100ML.BAG IVPB SCH ×2 (09:09→11:09)
[2016-06-01] MEDS: DIAZEPAM 2 MG TAB PO SCH (09:16)
[2016-06-01] MEDS: IPRATROPIUM-ALBUTEROL 3 ML NEB IH SCH ×4 (09:25→20:56)
--- NOTE | 2016-06-01 10:34 | XR ---
EXAMINATION TYPE: XR chest 1V portable DATE OF EXAM: 06/01/2016 7:00 AM COMPARISON: NONE INDICATION: Post right lower lobectomy TECHNIQUE: Single frontal view of the chest is obtained. FINDINGS: The heart size is normal. The pulmonary vasculature is normal. There is elevation of the right diaphragm. Right-sided chest tube is present. Small pneumothorax is p resent at the left apex. Subcutaneous emphysematous changes are present through the left chest wall e xtending into the right neck. IMPRESSION: 1. Small left apical pneumothorax. 2. Subcutaneous emphysema
--- NOTE | 2016-06-01 14:18 | XR ---
EXAMINATION TYPE: XR chest 1V portable DATE OF EXAM: 06/01/2016 1:30 PM COMPARISON: 06/01/2016 earlier exam INDICATION: Right-sided pneumothorax TECHNIQUE: Single frontal view of the chest is obtained. FINDINGS: The heart size is normal. The pulmonary vasculature is normal. The right-sided pneumothorax is markedly enlarged over the interval. Right-sided chest tube remains i n position. Subcutaneous emphysema, more extensive on the left remains prominent on the right. IMPRESSION: 1. Increased size of a right pneumothorax.
--- NOTE | 2016-06-01 14:32 | P.PN ---
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 Patient sedated opens up his eyes easily to verbal stimuli. No distress noted, no specific complaints. He is sitting up to the bedside chair. Oriented 3. Vital Signs: Afebrile Vital Signs - 24 hr 05/31/16 05/31/16 05/31/16 16:00 16:50 17:02 Temperature 97.8 F Pulse Rate 78 78 Pulse Rate [ Chrome Plater Helper ] Pulse Rate [ 77 Pulse Oximetery ] Respiratory 16 Rate Blood Pressure 130/70 [Left Arm] O2 Sat by Pulse 98 Oximetry 05/31/16 05/31/16 05/31/16 20:00 21:58 22:09 Temperature 97.8 F Pulse Rate 74 74 Pulse Rate [ [employer] Plater Helper ] Pulse Rate [ 69 Pulse Oximetery ] Respiratory 18 Rate Blood Pressure 128/72 [Left Arm] O2 Sat by Pulse 98 Oximetry 06/01/16 06/01/16 06/01/16 00:00 04:00 09:20 Temperature 98.3 F 99.2 F 97.8 F Pulse Rate Pulse Rate [ 77 Chrome Plater Helper ] Pulse Rate [ 75 74 74 Pulse Oximetery ] Respiratory 18 18 18 Rate Blood Pressure 120/71 143/82 119/66 [Left Arm] O2 Sat by Pulse 96 93 L 94 L Oximetry 06/01/16 06/01/16 06/01/16 09:26 09:33 12:09 Temperature Pulse Rate 72 76 72 Pulse Rate [ Chrome Plater Helper ] Pulse Rate [ Pulse Oximetery ] Respiratory Rate Blood Pressure [Left Arm] O2 Sat by Pulse 94 L Oximetry 06/01/16 06/01/16 12:20 12:24 Temperature 97.5 F L Pulse Rate 76 Pulse Rate [ 75 Chrome Plater Helper ] Pulse Rate [ 74 Pulse Oximetery ] Respiratory 16 Rate Blood Pressure 173/80 [Left Arm] O2 Sat by Pulse 94 L Oximetry Labs: [facility] 05/31/16 06/01/16 15:35 05:51 Sodium 136 L Potassium 3.7 4.1 Chloride 98 Carbon Dioxide 28 BUN 19 Creatinine 0.81 Glucose 122 H Calcium 9.1 Magnesium 1.7 this morning, replaced per magnesium replacement protocol. Pathology results remain pending. Lungs: Few scattered rhonchi throughout, diminished bilateral bases right greater than left. Respirations are symmetrical and unlabored. O2 sat: 94% on room air. I/S: 750 mL to 1000 mL, reviewed with the patient importance of using his incentive spirometry every hour while awake. The patient did give a good return demonstration on his incentive spirometry. Heart: S1S2, regular rhythm and rate, positive systolic murmur. Remote telemetry showing normal sinus rhythm heart rate 82. Right chest incision clean dry and well approximated. Dressing clean and dry. No drainage noted. Abdomen: Soft, Positive bowel sounds present in all 4 quadrants. U/O: Adequate, Chest Tubes: Right pleural chest tube with intermittent air leak, his chest tube was placed on waterseal and taken off wall suction. Draining thin serosanguineous drainage. 270 mL output within the last 24 hours. 24 hr Total: Intake & Output 05/30/16 05/31/16 06/01/16 06/02/16 06:59 06:59 06:59 06:59 Intake Total 2027 1880 440 Output Total 4950 880 1160 500 Balance -2922 1000 -720 -500 Weight 61.9 kg 64 kg Active Medications Hydrocodone Bitart/Acetaminophen ([place] 7.5-325) 1 each PO Q6H PRN PRN Reason: Moderate Pain Last Admin: 05/31/16 10:56 Dose: 1 each Albuterol/Ipratropium (Duoneb 0.5 Mg-3 Mg/3 Ml Soln) 3 ml IH RT-Q1H PRN PRN Reason: Shortness Of Breath Or Wheezing Albuterol/Ipratropium (Duoneb 0.5 Mg-3 Mg/3 Ml Soln) 3 ml IH RT-QID [facility] Last Admin: 06/01/16 12:09 Dose: 3 ml Aspirin (Aspirin) 81 mg PO DAILY [facility] Last Admin: 06/01/16 09:08 Dose: 81 mg Atorvastatin Calcium (Lipitor) 40 mg PO DAILY [facility] Last Admin: 06/01/16 09:08 Dose: 40 mg Bisacodyl (Dulcolax) 10 mg RECTAL DAILY PRN PRN Reason: Constipation Diltiazem HCl (Cardizem Cd) 180 mg PO DAILY [facility] Last Admin: 06/01/16 09:08 Dose: 180 mg Haloperidol Lactate (Haldol) 5 mg IM Q6HR PRN PRN Reason: Agitation or Acute Psychosis Last Admin: 05/28/16 04:45 Dose: 5 mg Heparin Sodium (Porcine) (Heparin) 5,000 unit SQ Q12HR [facility] Last Admin: 06/01/16 09:08 Dose: 5,000 unit Hydrochlorothiazide (Hydrodiuril) 25 mg PO DAILY [facility] Last Admin: 06/01/16 09:08 Dose: 25 mg Loratadine (Claritin) 5 mg PO Q12HR PRN PRN Reason: Allergy Symptoms Last Admin: 05/29/16 17:53 Dose: 5 mg Metoclopramide HCl (Reglan) 5 mg IVP Q4HR PRN PRN Reason: Nausea And Vomiting Metoprolol Tartrate (Lopressor) 50 mg PO TID [facility] Last Admin: 06/01/16 09:08 Dose: 50 mg Miscellaneous Information (Magnesium Per Protocol) 1 each MISCELLANE DAILY PRN ; Protocol PRN Reason: Per Protocol Miscellaneous Information (Potassium Per Protocol) 1 each MISCELLANE DAILY PRN ; Protocol PRN Reason: Per Protocol Miscellaneous Information (Magnesium Per Protocol) 1 each MISCELLANE DAILY PRN ; Protocol PRN Reason: Per Protocol Nicotine (Habitrol 21mg/24hr Patch) 1 patch TRANSDERM DAILY [facility] Last Admin: 06/01/16 09:08 Dose: 1 patch Nicotine Polacrilex (Nicorette Gum) 2 mg BUCCAL Q4HR PRN PRN Reason: Nicotine Cravings Ondansetron HCl (Zofran) 4 mg IVP Q8HR PRN PRN Reason: Nausea And Vomiting Pantoprazole Sodium (Protonix) 40 mg PO AC-BRKFST [facility] Last Admin: 06/01/16 06:59 Dose: 40 mg Plan: 1. Pain control per when necessary orders. Morphine will be discontinued due to the patient's sedation level. Valium discontinued as well. 2. Wean oxygen as tolerated, pulmonary management per Dr. Fisher's recommendations 3. Encourage use of his incentive spirometry every hour while awake. 4. Increase activity as tolerated, physical therapy to evaluate and treat. Patient is to ambulate in the room as tolerated with assistance. 5. Consult social work for discharge placement. Rehab placement, Dr. Rivera is following the patient. 6. Medical management per Dr Albert. 7. Right pleural chest tube will be placed back to low continuous wall suction as his repeat chest x-ray demonstrates an enlarging pneumothorax. 7. Chest x-ray in a.m. 8. Magnesium replacement per protocol, magnesium level 1.7. 9. Further recommendations as patient progresses.
--- NOTE | 2016-06-01 18:15 | P.PN ---
Subjective Squamous cell carcinoma of the right lung This is a pleasant 71-year-old gentleman who was recently diagnosed with squamous cell carcinoma. He is now status post right middle and right lower lobectomies performed by Dr. Negron on 05/27/2016. He is seen again today in follow-up on the selective care unit. He remains awake and alert in no acute distress. Today's chest x-ray shows persistent extensive subcutaneous emphysema and a now moderate right upper lobe pneumothorax. The chest tube is in place. He was placed back on suction. Currently, he is resting fairly comfortably in bed. He denies any worsening shortness of breath, cough or congestion. He is maintaining good O2 saturations up to 100% on room air. He' s been afebrile. His right-sided chest discomfort is fairly well controlled. The patient is seen again today in follow-up on 05/31/2016 on the selective care unit. He is currently awake and alert in no acute distress. He states his breathing is somewhat easier today as compared to yesterday. He continues to work with his incentive spirometer. His chest tube remains in place. There is still an air leak. His chest x-ray does not show any significant pneumothorax. He is maintaining good O2 saturations in the upper 90s on room air. He remains afebrile. On , the patient is doing well. He still having a high requirement for pain medication. He is however, comfortable. He is resting comfortably in bed. He has a right-sided chest tube. No evidence of any air leak. The output from the chest tube was noted. Today chest x-ray shows no significant right-sided pneumothorax. Based on cardiothoracic surgery recommendations the chest tube was placed to waterseal. The patient is on room air oxygen. Tolerating diet. No nausea. No vomiting. No pleurisy. Objective - Vital Signs Vital signs: Vital Signs Temp 97.0 F L 06/01/16 15:33 Pulse 77 06/01/16 15:33 Resp 18 06/01/16 15:33 BP 121/69 06/01/16 15:33 Pulse Ox 95 06/01/16 15:33 Intake & Output 05/31/16 06/01/16 06/01/16 18:59 06:59 18:59 Intake Total 440 Output Total 530 630 600 Balance -90 -630 -600 Intake: Intake, IV Titration 200 Amount Magnesium Sulfate-D5w Pmx 200 1 gm In Dextrose/Water 1 100ml.bag @ 100 mls/hr IVPB Q1H [facility] Rx#: [id number] Oral 240 Output: Chest Tube Drainage 130 100 Chest Tube Right 130 100 Drainage 130 Right Lower Chest 130 Urine 400 500 500 Other: Voiding Method Urinal Urinal # Voids 1 0 # Bowel Movements 0 0 - Exam Head exam was generally normal. There was no scleral icterus or corneal arcus. Mucous membranes were moist.Neck was supple and without jugular venous distension, thyromegaly, or carotid bruits. Carotids were easily palpable bilaterally. There was no adenopathy.lung sounds are diminished on the right compared to the left. The patient has a right-sided chest tube also in place.Cardiac exam revealed the PMI to be normally situated and sized. The rhythm was regular and no extrasystoles were noted during several minutes of auscultation. The first and second heart sounds were normal and physiologic splitting of the second heart sound was noted. There were no murmurs, rubs, clicks, or gallops.Abdominal exam revealed normal bowel sounds. The abdomen was soft, non-tender, and without masses, organomegaly, or appreciable enlargement of the abdominal aorta.Examination of the extremities revealed easily palpable radial, femoral and pedal pulses. There was no cyanosis, clubbing or edema. - Labs CBC & Chem 7: 05/31/16 05:41 06/01/16 05:51 Labs: Abnormal Lab Results - Last 24 Hours (Table) 06/01/16 Range/Units 05:51 Sodium 136 L (137-145) mmol/L Glucose 122 H (74-99) mg/dL Assessment and Plan Plan: Impression: #1 Squamous cell carcinoma. Status post right middle and right lower lobectomy , postoperative day #5 #2 Persistent extensive subcutaneous emphysema an air leak from the right-sided chest tube which has improved. The patient's chest tubes were placed to waterseal a repeat chest x-ray still pending. We'll put it back to suction if there is a sizable pneumothorax that involves as the patient's chest tube was placed to waterseal. #3 Chronic and ongoing tobacco dependence. #4 Hypertension. #5 Gastroesophageal reflux fluid disease. #6 chest wall pain secondary to above #7 history of smoking Plan: awaiting a follow-up chest x-ray. We will put the chest or back to suction if there is any sizable pneumothorax evolving. The patient still has a septic since emphysema. The patient will likely need the chest tubes were placed in place for a longer period of time due to the above-mentioned problems. The right lung is well expanded on today's chest x-ray. The patient is stable. His pain is under good control.he is producing adequate amount of urine and he is also passing bowel movements. Is tolerating diet. He is on Glucovance on the clock. Is using incentive spirometer.we'll continue to follow.
--- NOTE | 2016-06-01 19:49 | PN ---
DATE OF SERVICE: 06/01/2016 PRESENTING COMPLAINT: Partial right lobectomy. INTERVAL HISTORY: The patient is status post right middle and lower lobectomy. Chest tube remains in place in the right chest wall. Chest x-ray showed no pneumothorax, no air leak. Patient is tolerating a diet. Valium was discontinued, as patient is no longer in danger of experiencing DTs, and patient was experiencing lethargy and sleepiness as a result. Patient is out of bed, sitting in a chair. No acute distress noted or voiced. Patient has been tolerating his diet well. Breathing is stable. Review of systems for constitutional, cardiovascular, GI, pulmonary completed; relevant findings as above. Current medications were reviewed and they include DuoNeb. PHYSICAL EXAMINATION: VITAL SIGNS: Temperature 97.0, pulse 72, respirations 16, blood pressure 121/69, pulse ox 95% on room air. GENERAL APPEARANCE: Patient is awake, sitting in a chair. EYES: Pupils equal. Conjunctivae normal. NECK: JVD not raised. Mass not palpable. RESPIRATORY: Effort normal. LUNGS: Diminished breath sounds bilaterally. CARDIOVASCULAR: First and second sounds are normal. No edema noted. ABDOMEN: Soft, nontender. Liver and spleen not palpable. PSYCHIATRIC: Alert and oriented x3. Mood and affect are normal. CHEST WALL: Right chest tube remains in place with subcutaneous emphysema noted on x-ray. No air leak. No pneumothorax. INVESTIGATIONS: Basic metabolic panel from today's lab draws within normal limits. ASSESSMENT: 1. Right middle and lower lobe resection for lung cancer, including 4 to 8 intercostal cryoablation for pain control. 2. Emphysema in a current smoker. 3. Chronic nicotine dependence. The patient is a cigarette smoker. 4. Essential hypertension. 5. Gastroesophageal reflux disease. 6. Delirium tremens, improved. Valium discontinued due to no risk of DTs. 7. Chronic alcohol dependence. 8. Right pneumothorax, iatrogenic. Chest tube in place. No appreciable pneumothorax seen on chest x-ray. 9. Subcutaneous emphysema. PLAN: At this point, mobilizing the patient, having the patient sit in a chair. Tolerating the removal of Valium from his regimen. Will continue to follow. The history and physical was performed on the patient by me/nurse practitioner and attending/Dr. Albert. The relevant points of the history/physical/diagnoses/plan were discussed and are as dictated above.
--- NOTE | 2016-06-01 21:08 | PN ---
DATE OF SERVICE: 05/31/2016 ADDENDUM: This patient was seen and examined by me. The patient was also seen and examined by nurse practitioner Ms. Rivera. The relevant points of the history, physical, diagnoses and plan were discussed with the nurse practitioner and are as dictated in her note.
[2016-06-01] MEDS: HYDROcodone/APAP 7.5-325MG 1 EACH TAB PO PRN (21:23)
[2016-06-01 21:40] LABS: Glucose,Whole Blood 119 mg/dL (75-99)
[2016-06-02] MEDS: HYDROcodone/APAP 7.5-325MG 1 EACH TAB PO PRN ×2 (03:55→18:56)
[2016-06-02] MEDS: PANTOPRAZOLE 40 MG TABLET PO SCH (06:25)
[2016-06-02 06:37] LABS: Anion Gap 14 mmol/L; Calcium 9.2 mg/dL (8.4-10.2); Carbon Dioxide 21 mmol/L (22-30); Chloride 100 mmol/L (98-107); Glucose 96 mg/dL (74-99); Non-African American GFR(MDRD) >60 (>60 ml/min/1.73 sqM); Sodium 135 mmol/L (137-145)
[2016-06-02 06:39] LABS: Blood Urea Nitrogen 24 mg/dL (9-20); Magnesium 1.9 mg/dL (1.6-2.3); Potassium 4.7 mmol/L (3.5-5.1)
--- NOTE | 2016-06-02 07:44 | XR ---
EXAMINATION TYPE: XR chest 1V portable DATE OF EXAM: 06/02/2016 7:18 AM Comparison: 06/01/2016 Clinical History: 71-year-old male post op right middle and lower lobectomy Findings: There is volume loss of the right hemithorax compatible with patient's history of right middle and lo wer lobectomies. Immediately positioned apically directed right-sided chest tube remains in place wit h extensive subcutaneous emphysema along the right side but also extending up to the base of the left neck. The patient's underlying pneumothorax has decreased in size in the interval, estimated at 15-2 0%. Left lung and pleural space remain clear. Impression: Stable volume loss in the right hemithorax compatible with right middle and lower lobectomies. Right- sided chest tube remains in place with similar extensive subcutaneous emphysema. Right-sided pneumoth orax decreased in the interval now estimated at 15-20%.
[2016-06-02] MEDS ORDERED: Magnesium Replacement Protocol 1 EACH MISC MISCELLANE PRN (08:03)
[2016-06-02] MEDS: DILTIAZEM CD 180 MG CAP.ER.24H PO SCH (08:53)
[2016-06-02] MEDS: NICOTINE 21MG/24HR PATCH TRANSDERM SCH (08:53)
[2016-06-02] MEDS: ATORVASTATIN 40 MG TAB PO SCH (08:53)
[2016-06-02] MEDS: HYDROCHLOROTHIAZIDE 25 MG TAB PO SCH (08:53)
[2016-06-02] MEDS: METOPROLOL TARTRATE 50 MG TAB PO SCH ×3 (08:53→21:30)
[2016-06-02] MEDS: HEPARIN SODIUM,PORCINE 5,000 UNIT/ML 1 ML VIAL SQ SCH ×2 (08:53→21:30)
[2016-06-02] MEDS: ASPIRIN 81 MG CHEW PO SCH (08:53)
[2016-06-02] MEDS: IPRATROPIUM-ALBUTEROL 3 ML NEB IH SCH ×4 (08:53→20:36)
[2016-06-02] MEDS: MAGNESIUM SULFATE-D5W PMX 1 GM in DEXTROSE/WATER 1 100ML.BAG IVPB SCH ×2 (08:54→11:05)
--- NOTE | 2016-06-02 14:09 | P.PN ---
Subjective Principal diagnosis: Squamous cell carcinoma of the right lung This is a pleasant 71-year-old gentleman who was recently diagnosed with squamous cell carcinoma. He is now status post right middle and right lower lobectomies performed by Dr. Negron on 05/27/2016. He is seen again today in follow-up on the selective care unit. He remains awake and alert in no acute distress. Today's chest x-ray shows persistent extensive subcutaneous emphysema and a now moderate right upper lobe pneumothorax. The chest tube is in place. He was placed back on suction. Currently, he is resting fairly comfortably in bed. He denies any worsening shortness of breath, cough or congestion. He is maintaining good O2 saturations up to 100% on room air. He' s been afebrile. His right-sided chest discomfort is fairly well controlled. The patient is seen again today in follow-up on 05/31/2016 on the selective care unit. He is currently awake and alert in no acute distress. He states his breathing is somewhat easier today as compared to yesterday. He continues to work with his incentive spirometer. His chest tube remains in place. There is still an air leak. His chest x-ray does not show any significant pneumothorax. He is maintaining good O2 saturations in the upper 90s on room air. He remains afebrile. On , the patient is doing well. He still having a high requirement for pain medication. He is however, comfortable. He is resting comfortably in bed. He has a right-sided chest tube. No evidence of any air leak. The output from the chest tube was noted. Today chest x-ray shows no significant right-sided pneumothorax. Based on cardiothoracic surgery recommendations the chest tube was placed to waterseal. The patient is on room air oxygen. Tolerating diet. No nausea. No vomiting. No pleurisy. He is seen again today on the selective care unit 06/02/2016. He has been up ambulating with assistance from physical therapy. He denies any worsening shortness of breath. He remains with a dry nonproductive cough. His chest tube remains in place. There is intermittent leak. He is maintaining good O2 saturations in the mid 90s on room air. He is afebrile. His pain is well controlled. Objective - Vital Signs Vital signs: Vital Signs Temp 98.2 F 06/02/16 12:00 Pulse 80 06/02/16 12:27 Resp 18 06/02/16 12:00 BP 138/79 06/02/16 12:00 Pulse Ox 94 L 06/02/16 12:00 Intake & Output 06/01/16 06/02/16 06/02/16 18:59 06:59 18:59 Intake Total 480 Output Total 600 390 Balance -600 -390 480 Weight 60.6 kg Intake: Oral 480 Output: Chest Tube Drainage 100 90 Chest Tube Right 100 90 Urine 500 300 Other: Voiding Method Urinal Toilet Toilet Urinal Urinal # Voids 0 # Bowel Movements 0 - Exam GENERAL EXAM: Alert, fairly comfortable in no apparent distress. HEAD: Normocephalic. EYES: Normal reaction of pupils, equal size. NOSE: Clear with pink turbinates. THROAT: No erythema or exudates. NECK: No masses, no JVD. CHEST: No chest wall deformity. LUNGS: Equal air entry with crackles, diminished right lung. Right chest tube remains in place. CVS: S1 and S2 normal with no audible murmurs, regular rhythm. ABDOMEN: No hepatosplenomegaly, normal bowel sounds, no guarding or rigidity. SPINE: No scoliosis or deformity SKIN: No rashes CENTRAL NERVOUS SYSTEM: No focal deficits, tone is normal in all 4 extremities. Extremities: There is no significant peripheral edema. No clubbing, no cyanosis. Peripheral pulses are intact. - Labs CBC & Chem 7: 05/31/16 05:41 06/02/16 05:26 Labs: Abnormal Lab Results - Last 24 Hours (Table) 06/01/16 06/02/16 Range/Units 21:15 05:26 Sodium 135 L (137-145) mmol/L Carbon Dioxide 21 L (22-30) mmol/L BUN 24 H (9-20) mg/dL POC Glucose (mg/dL) 119 H (75-99) mg/dL Assessment and Plan Plan: Impression: #1 Squamous cell carcinoma. Status post right middle and right lower lobectomy , a chest tube remains in place. #2 Persistent extensive subcutaneous emphysema with a right upper pneumothorax secondary to above. #3 Chronic and ongoing tobacco dependence. #4 Hypertension. #5 Gastroesophageal reflux fluid disease. Plan: The patient was seen and evaluated by Dr. Fisher. His chest x-ray and labs were reviewed. There is a 15-20% right-sided pneumothorax which is improved. Continued subcutaneous emphysema. We'll continue with his current medications. We'll continue to increase his activity as tolerated. He is again encouraged regarding the increased use of the incentive spirometer and cough and deep breathing. He is also encouraged regarding the importance of complete smoking cessation. Pathology results are still pending. We will continue to follow make further recommendations based on his clinical status.
--- NOTE | 2016-06-02 16:06 | XR ---
EXAMINATION TYPE: XR chest 1V portable DATE OF EXAM: 06/02/2016 12:37 PM Comparison: Earlier today Clinical History: 71 year-old male post op right middle and lower lobectomy Findings: Right-sided chest tube remains in place with extensive subcutaneous emphysema. There is enlarging, no w large right-sided pneumothorax status post right middle and lower lobectomies. Right-sided cardiac mediastinal shift compatible with the volume loss. Elongation of the thoracic aorta. Left lung and pl eural space appear clear. Impression: Right-sided chest tube remains in place. Now large right-sided pneumothorax probably approaching 80%.
--- NOTE | 2016-06-02 16:45 | P.PN ---
<Good Russell Logan - Last Filed: 06/02/16 16:45> Progress Note - Text CV Surgery Nursing Principal diagnosis: non-small cell carcinoma right lower lobe lung POD: #6, status post elective right thoracotomy, right lower and middle lobectomy, mediastinal lymph node dissection, cryoablation of intercostal nerves IV through VIII. Patient is awake and alert. No distress noted, no specific complaints. He is sitting up to the bedside chair. Oriented 3. Vital Signs: Afebrile Vital Signs - 24 hr 06/01/16 06/01/16 06/01/16 15:33 20:00 21:09 Temperature 97.0 F L 97.2 F L Pulse Rate 73 Pulse Rate [ 72 Echocardiography Radiology Technologist ] Pulse Rate [ 74 75 Pulse Oximetery ] Respiratory 16 18 Rate Blood Pressure 121/69 [Left Arm] Blood Pressure 134/79 [Right Arm Supine] O2 Sat by Pulse 95 98 Oximetry 06/01/16 06/02/16 06/02/16 21:17 00:00 04:00 Temperature 97.2 F L 97.5 F L Pulse Rate 72 Pulse Rate [ Echocardiography Radiology Technologist ] Pulse Rate [ 72 69 Pulse Oximetery ] Respiratory 18 18 Rate Blood Pressure 139/76 121/72 [Left Arm] Blood Pressure [Right Arm Supine] O2 Sat by Pulse 95 94 L Oximetry 06/02/16 06/02/16 06/02/16 09:24 12:00 12:17 Temperature 97.3 F L 98.2 F Pulse Rate 80 Pulse Rate [ 85 92 Echocardiography Radiology Technologist ] Pulse Rate [ 69 69 Pulse Oximetery ] Respiratory 16 16 Rate Blood Pressure 134/76 138/79 [Left Arm] Blood Pressure [Right Arm Supine] O2 Sat by Pulse 94 L 94 L Oximetry 06/02/16 12:27 Temperature Pulse Rate 80 Pulse Rate [ Echocardiography Radiology Technologist ] Pulse Rate [ Pulse Oximetery ] Respiratory Rate Blood Pressure [Left Arm] Blood Pressure [Right Arm Supine] O2 Sat by Pulse Oximetry Labs: [facility] 06/02/16 05:26 Sodium 135 L Potassium 4.7 Chloride 100 Carbon Dioxide 21 L BUN 24 H Creatinine 0.85 Glucose 96 Calcium 9.2 Magnesium 1.9 Lungs: Essentially clear throughout, diminished bilateral bases right greater than left. Respirations are unlabored and symmetrical. Positive subcu emphysema to his right neck and right chest. O2 sat: 94% on room air. I/S: 500-750 mL, reviewed with the patient importance of using his incentive spirometry every hour while awake. The patient did give a good return demonstration on his incentive spirometry. Heart: S1S2, regular rhythm and rate, positive systolic murmur. Remote telemetry showing normal sinus rhythm heart rate 89. Right chest incision clean dry and well approximated. No drainage noted. Dressing has been changed by Reina his RN today. Knee-high PROSPER hose and sequential compression devices in place to bilateral lower extremities. Abdomen: Soft, Positive bowel sounds present in all 4 quadrants. U/O: Adequate. Chest Tubes: Right pleural chest tube with intermittent air leak, draining thin serosanguineous drainage 90 mL in the last 8 hours, 190 mL in the last 24 hours. 24 hr Total: Intake & Output 05/31/16 06/01/16 06/02/16 06/03/16 06:59 06:59 06:59 06:59 Intake Total 1880 440 480 Output Total 880 1160 990 Balance 1000 -720 -990 480 Weight 64 kg 60.6 kg Active Medications Hydrocodone Bitart/Acetaminophen ([place] 7.5-325) 1 each PO Q6H PRN PRN Reason: Moderate Pain Last Admin: 06/02/16 03:55 Dose: 1 each Albuterol/Ipratropium (Duoneb 0.5 Mg-3 Mg/3 Ml Soln) 3 ml IH RT-Q1H PRN PRN Reason: Shortness Of Breath Or Wheezing Albuterol/Ipratropium (Duoneb 0.5 Mg-3 Mg/3 Ml Soln) 3 ml IH RT-QID [facility] Last Admin: 06/02/16 12:13 Dose: 3 ml Aspirin (Aspirin) 81 mg PO DAILY [facility] Last Admin: 06/02/16 08:53 Dose: 81 mg Atorvastatin Calcium (Lipitor) 40 mg PO DAILY [facility] Last Admin: 06/02/16 08:53 Dose: 40 mg Bisacodyl (Dulcolax) 10 mg RECTAL DAILY PRN PRN Reason: Constipation Diltiazem HCl (Cardizem Cd) 180 mg PO DAILY [facility] Last Admin: 06/02/16 08:53 Dose: 180 mg Haloperidol Lactate (Haldol) 5 mg IM Q6HR PRN PRN Reason: Agitation or Acute Psychosis Last Admin: 04/22/17 04:45 Dose: 5 mg Heparin Sodium (Porcine) (Heparin) 5,000 unit SQ Q12HR [facility] Last Admin: 06/02/16 08:53 Dose: 5,000 unit Hydrochlorothiazide (Hydrodiuril) 25 mg PO DAILY [facility] Last Admin: 06/02/16 08:53 Dose: 25 mg Loratadine (Claritin) 5 mg PO Q12HR PRN PRN Reason: Allergy Symptoms Last Admin: 05/29/16 17:53 Dose: 5 mg Metoclopramide HCl (Reglan) 5 mg IVP Q4HR PRN PRN Reason: Nausea And Vomiting Metoprolol Tartrate (Lopressor) 50 mg PO TID [facility] Last Admin: 06/02/16 08:53 Dose: 50 mg Miscellaneous Information (Magnesium Per Protocol) 1 each MISCELLANE DAILY PRN ; Protocol PRN Reason: Per Protocol Miscellaneous Information (Potassium Per Protocol) 1 each MISCELLANE DAILY PRN ; Protocol PRN Reason: Per Protocol Miscellaneous Information (Magnesium Per Protocol) 1 each MISCELLANE DAILY PRN ; Protocol PRN Reason: Per Protocol Miscellaneous Information (Magnesium Per Protocol) 1 each MISCELLANE DAILY PRN ; Protocol PRN Reason: Per Protocol Nicotine (Habitrol 21mg/24hr Patch) 1 patch TRANSDERM DAILY [facility] Last Admin: 06/02/16 08:53 Dose: 1 patch Nicotine Polacrilex (Nicorette Gum) 2 mg BUCCAL Q4HR PRN PRN Reason: Nicotine Cravings Ondansetron HCl (Zofran) 4 mg IVP Q8HR PRN PRN Reason: Nausea And Vomiting Pantoprazole Sodium (Protonix) 40 mg PO AC-BRKFST [facility] Last Admin: 06/02/16 06:25 Dose: Not Given Plan: 1. Pain control per when necessary orders. 2. Pulmonary management per Dr. Fisher's recommendations 3. Encourage use of his incentive spirometry every hour while awake. 4. Increase activity as tolerated, physical therapy to evaluate and treat. Patient is to ambulate in the room as tolerated with assistance. 5. Consult social work for discharge placement. Rehab placement, Dr. Rivera is following the patient. 6. Medical management per Dr Albert. 7. Right pleural chest tube will be placed back to low continuous wall suction as his repeat chest x-ray demonstrates an enlarging pneumothorax. 7. Chest x-ray in a.m. 8. Magnesium replacement per protocol, magnesium level 1.9. BMP and magnesium level in a.m. 9. Further recommendations as patient progresses. <Rudi Gutierrez - Last Filed: 06/02/16 16:53> Progress Note - Text The patient was seen and examined. I agree with the above assessment and plan. The patient continues to have an air leak in his chest tube. It was placed to water seal briefly but follow-up chest x-ray revealed collapse of his right lung. He was therefore returned to suction. Otherwise he appears to be doing well. He does not appears confused as earlier in the week. His sedatives and narcotics have been discontinued. Continue to work with physical therapy as tolerated.
[2016-06-03] MEDS: HYDROcodone/APAP 7.5-325MG 1 EACH TAB PO PRN ×4 (01:07→20:37)
[2016-06-03 06:24] LABS: Basophils % (A) 0 %; CH 28.7; CHCM 33.1; Eosinophils # (A) 0.4 k/uL (0-0.7); Eosinophils % (A) 3 %; HCT 47.6 % (39.0-53.0); HDW 2.86; HGB 15.3 gm/dL (13.0-17.5); Luc # (Auto) 0.25; Luc % (Auto) 2; Lymphocytes # (A) 1.6 k/uL (1.0-4.8); Lymphocytes % (A) 12 %; MCHC 32.1 g/dL (31.0-37.0); MCV 87.1 fL (80.0-100.0); Mean Platelet Volume 6.6; Monocytes # (A) 0.9 k/uL (0-1.0); Monocytes % (A) 7 %; Neutrophils % (A) 76 %; RBC 5.46 m/uL (4.30-5.90); RDW 14.4 % (11.5-15.5); WBC 13.2 k/uL (3.8-10.6); WBC (Perox) 13.34
[2016-06-03] MEDS: PANTOPRAZOLE 40 MG TABLET PO SCH (06:32)
[2016-06-03 06:40] LABS: Anion Gap 12 mmol/L; Blood Urea Nitrogen 31 mg/dL (9-20); Calcium 9.1 mg/dL (8.4-10.2); Carbon Dioxide 28 mmol/L (22-30); Chloride 94 mmol/L (98-107); Glucose 103 mg/dL (74-99); Magnesium 2.1 mg/dL (1.6-2.3); Non-African American GFR(MDRD) >60 (>60 ml/min/1.73 sqM); Potassium 4.4 mmol/L (3.5-5.1); Sodium 134 mmol/L (137-145)
[2016-06-03] MEDS: IPRATROPIUM-ALBUTEROL 3 ML NEB IH SCH ×4 (07:29→20:53)
--- NOTE | 2016-06-03 08:15 | XR ---
EXAMINATION TYPE: XR chest 1V portable DATE OF EXAM: 06/03/2016 7:29 AM CLINICAL HISTORY: Difficulty breathing progress study. Post right-sided partial pneumonectomy. TECHNIQUE: Single AP portable upright view of the chest is obtained. COMPARISON: Chest x-ray from one day earlier FINDINGS: There is persistent right-sided chest tube. There is small right apical pneumothorax signi ficantly improved versus prior estimated 10% on current study. Slight mediastinal shift to the right is stable.. Left lung is clear. Cardiac silhouette size is stable and within normal limits. There is diffuse right lung edema and/or infiltrate. Prominent adjacent subcutaneous emphysema remains present extending into the left upper chest IMPRESSION: Interval improvement in right-sided pneumothorax with small pneumothorax still present, r ight-sided chest tube is noted. There is mild diffuse right lung edema and/or infiltrate. Mediastinal position is stable.
[2016-06-03] MEDS: NICOTINE 21MG/24HR PATCH TRANSDERM SCH (08:31)
[2016-06-03] MEDS: DILTIAZEM CD 180 MG CAP.ER.24H PO SCH (08:32)
[2016-06-03] MEDS: ASPIRIN 81 MG CHEW PO SCH (08:32)
[2016-06-03] MEDS: ATORVASTATIN 40 MG TAB PO SCH (08:32)
[2016-06-03] MEDS: HYDROCHLOROTHIAZIDE 25 MG TAB PO SCH (08:33)
[2016-06-03] MEDS: METOPROLOL TARTRATE 50 MG TAB PO SCH ×3 (08:34→20:31)
[2016-06-03] MEDS: HEPARIN SODIUM,PORCINE 5,000 UNIT/ML 1 ML VIAL SQ SCH ×2 (08:34→20:31)
--- NOTE | 2016-06-03 08:52 | PN ---
DATE OF SERVICE: 06/02/2016 PRESENTING COMPLAINT: Partial right lobectomy. INTERVAL HISTORY: The patient is status post right middle and lower lobectomy. Chest tube remains in place in the right chest wall. Chest x-ray note shows no pneumothorax. No air leak. Patient is tolerating diet. Valium discontinued. Patient in bed, awake, alert, watching television. Seems relaxed. No acute distress noted. Review of systems for constitutional, cardiovascular, GI, pulmonary complete; relevant findings as above. CURRENT MEDICATIONS: DuoNeb. PHYSICAL EXAMINATION: VITAL SIGNS: Temperature 97.5, heart rate 72, respirations 16, blood pressure 127/73, oxygen saturation 94% on room air. GENERAL APPEARANCE: Patient is awake, sitting up in his bed. No acute distress noted or voiced. EYES: Pupils equal. Conjunctivae normal. NECK: JVD not raised. Mass not palpable. RESPIRATORY: Effort normal. LUNGS: Diminished breath sounds bilaterally. Subcutaneous emphysema noted to right upper chest wall and left upper chest wall up above the clavicle. CARDIOVASCULAR: S1, S2 sounds are normal. No edema noted. ABDOMEN: Soft, nontender. Liver and spleen not palpable. PSYCHIATRIC: Alert and oriented x3. Mood and affect are normal. CHEST WALL: Right chest tube remains in place with subcutaneous emphysema noted on x-ray. Chest tube Pleur-evac shows no air leak. No pneumothorax. INVESTIGATIONS: Chest x-ray reveals right-sided chest tube in place and a large right-sided pneumothorax approaching about 80%. CBC within normal limits in its entirety. Basic metabolic panel within normal limits in its entirety. ASSESSMENT: 1. Right middle and lower lobe resection for lung cancer, including 4 to 8 intercostal cryoablation for pain control. 2. Emphysema in a current smoker. 3. Chronic nicotine dependence. The patient is a cigarette smoker. 4. Essential hypertension. 5. Gastroesophageal reflux disease. 6. Chronic alcohol dependence. Patient has not had any delirium tremens as a result of cessation of alcohol use. 7. Right pneumothorax, iatrogenic. Right chest wall chest tube in place. Pneumothorax is grown to about an 80% size according to today's x-ray. 8. Subcutaneous emphysema remains on right side upper chest wall and left upper chest wall just above the clavicles and down the lateral side of the chest wall. PLAN: Continue to mobilize the patient, getting patient in up daily for each meal to sit in the chair. Pulmonology remains on the case and continues to follow the patient. The patient was seen and examined by me/the nurse practitioner and attending/Dr. Albert. The relevant points of the history/physical/diagnoses/plan were discussed and is as dictated above.
--- NOTE | 2016-06-03 16:34 | P.PN ---
Subjective Squamous cell carcinoma of the right lung This is a pleasant 71-year-old gentleman who was recently diagnosed with squamous cell carcinoma. He is now status post right middle and right lower lobectomies performed by Dr. Negron on 05/27/2016. He is seen again today in follow-up on the selective care unit. He remains awake and alert in no acute distress. Today's chest x-ray shows persistent extensive subcutaneous emphysema and a now moderate right upper lobe pneumothorax. The chest tube is in place. He was placed back on suction. Currently, he is resting fairly comfortably in bed. He denies any worsening shortness of breath, cough or congestion. He is maintaining good O2 saturations up to 100% on room air. He' s been afebrile. His right-sided chest discomfort is fairly well controlled. The patient is seen again today in follow-up on 05/31/2016 on the selective care unit. He is currently awake and alert in no acute distress. He states his breathing is somewhat easier today as compared to yesterday. He continues to work with his incentive spirometer. His chest tube remains in place. There is still an air leak. His chest x-ray does not show any significant pneumothorax. He is maintaining good O2 saturations in the upper 90s on room air. He remains afebrile. On , the patient is doing well. He still having a high requirement for pain medication. He is however, comfortable. He is resting comfortably in bed. He has a right-sided chest tube. No evidence of any air leak. The output from the chest tube was noted. Today chest x-ray shows no significant right-sided pneumothorax. Based on cardiothoracic surgery recommendations the chest tube was placed to waterseal. The patient is on room air oxygen. Tolerating diet. No nausea. No vomiting. No pleurisy. He is seen again today on the selective care unit 06/02/2016. He has been up ambulating with assistance from physical therapy. He denies any worsening shortness of breath. He remains with a dry nonproductive cough. His chest tube remains in place. There is intermittent leak. He is maintaining good O2 saturations in the mid 90s on room air. He is afebrile. His pain is well controlled. On 06/03/2016 the patient is being seen in follow-up. He still has a right- sided chest tube. Airleak is still present although less compared to yesterday. Today chest x-ray shows a very tiny right apical pneumothorax. The patient is quite weak. Nevertheless is able to move around with help and ambulate. Appetite is still poor. No chest pain. No nausea. No vomiting. No abdominal pain. No change in mental status. The patient postoperative findings showed a large 6.5 and to meet her mass, consistent with squamous cell carcinoma, and there is involvement of the pleural surface, and this is considered to be T2b, N0 and M0 lesion. Objective - Vital Signs Vital signs: Vital Signs Temp 97.1 F L 06/03/16 12:00 Pulse 71 06/03/16 12:00 Resp 18 06/03/16 12:00 BP 123/68 06/03/16 12:00 Pulse Ox 98 06/03/16 12:00 Intake & Output 06/02/16 06/03/16 06/03/16 18:59 06:59 18:59 Intake Total 960 90 360 Output Total 530 250 Balance 960 -440 110 Weight 58.8 kg 58.8 kg Intake: Oral 960 90 360 Output: Chest Tube Drainage 180 Chest Tube Right 180 Urine 350 250 Other: Voiding Method Toilet Toilet Toilet Urinal Urinal Urinal # Voids 1 - Exam Head exam was generally normal. There was no scleral icterus or corneal arcus. Mucous membranes were moist.Neck was supple and without jugular venous distension, thyromegaly, or carotid bruits. Carotids were easily palpable bilaterally. There was no adenopathy.lung sounds are diminished on the right compared to the left. The patient has a right-sided chest tube also in place.Cardiac exam revealed the PMI to be normally situated and sized. The rhythm was regular and no extrasystoles were noted during several minutes of auscultation. The first and second heart sounds were normal and physiologic splitting of the second heart sound was noted. There were no murmurs, rubs, clicks, or gallops.Abdominal exam revealed normal bowel sounds. The abdomen was soft, non-tender, and without masses, organomegaly, or appreciable enlargement of the abdominal aorta.Examination of the extremities revealed easily palpable radial, femoral and pedal pulses. There was no cyanosis, clubbing or edema. - Labs CBC & Chem 7: 06/03/16 05:48 06/03/16 05:44 Labs: Abnormal Lab Results - Last 24 Hours (Table) 06/03/16 06/03/16 Range/Units 05:44 05:48 WBC 13.2 H (3.8-10.6) k/uL Neutrophils # 10.0 H (1.3-7.7) k/uL Sodium 134 L (137-145) mmol/L Chloride 94 L (98-107) mmol/L BUN 31 H (9-20) mg/dL Glucose 103 H (74-99) mg/dL Assessment and Plan Plan: Impression: #1 Squamous cell carcinoma. Status post right middle and right lower lobectomy , postoperative day #7. The patient has T2B, N0, M0 disease. #2 Persistent air leak and failure to remove the chest tube because of ongoing air leak. During the chest tube to water suction with resultant development of right-sided pneumothorax. As such the chest tube is still connected to suction. #3 Chronic and ongoing tobacco dependence. #4 Hypertension. #5 Gastroesophageal reflux fluid disease. #6 chest wall pain secondary to above #7 history of smoking Plan: Data chest x-rays. Monitor the leak from the right-sided chest tube. Continue using incentive spirometer. Increased mobility. Ambulation if possible. Increase diet. Pain control is adequate. Continue the bronchodilators. We'll continue to follow.
--- NOTE | 2016-06-03 17:32 | PN ---
DATE OF SERVICE: 06/03/2016 PRESENTING COMPLAINT: Partial right lobectomy. INTERVAL HISTORY: The patient is status post right middle and lower lobectomy. Chest tube remains in place in the right chest wall. Patient complains of not being able to eat very much due to food tasting different. Patient is in bed, awake, alert, watching television. He seems relaxed. No acute distress noted. Review of systems for constitutional, cardiovascular, GI, pulmonary complete; relevant findings as above. Current medications include: 1. Drummond. 2. DuoNeb. 3. Aspirin. 4. Atorvastatin. 5. Bisacodyl. 6. Diltiazem. 7. Haloperidol. 8. Heparin. 9. Hydrochlorothiazide. 10. Loratadine. 11. Metoclorpramide. 12. Metoprolol. 13. Habitrol patch. 14. Pantoprazole. PHYSICAL EXAMINATION: VITAL SIGNS: Temperature 97.1, pulse 71, respiratory rate 18, blood pressure 123/68, oxygen saturation 98% on room air. GENERAL APPEARANCE: Patient is awake, sitting up in bed. No acute distress noted or voiced. EYES: Pupils equal. Conjunctivae normal. NECK: JVD not raised. Mass not palpable. RESPIRATORY: Effort normal. LUNGS: Diminished breath sounds bilaterally with right lobe more diminished than left. Subcutaneous emphysema noted to the right upper chest wall and left upper chest wall above the clavicle. Chest tube remains in the right chest wall with serosanguineous drainage. CARDIOVASCULAR: S1, S2 sounds are normal. No edema noted. ABDOMEN: Soft, nontender. Liver and spleen not palpable. PSYCHIATRIC: Alert and oriented x3. Mood and affect are normal. CHEST WALL: Right chest tube remains in place with subcutaneous emphysema noted as above. Chest tube Pleur-evac shows an air leak within the Pleur-evac. Small pneumothorax noted on chest x-ray. Right-sided pneumothorax noted to be about 15% to 20%, which is improving. INVESTIGATIONS: White blood cell count 13.2, up from 05/31 value of 7.4. Sodium 134. BUN 31, creatinine 1.02. Blood glucose continues to be monitored. On chest x-ray there is interval improvement in the right-sided pneumothorax with small pneumothorax still present. Right-sided chest tube is noted. There is mild diffuse lung edema and/or infiltrate. Mediastinal position is stable. ASSESSMENT: 1. Right middle and lower lobe resection for lung cancer, including 4 to 8 intercostal cryoablation for pain control. 2. Emphysema in a current smoker. 3. Chronic nicotine dependence. The patient is a cigarette smoker. 4. Essential hypertension. 5. Gastroesophageal reflux disease. 6. Chronic alcohol dependence. Patient has not had any delirium tremens as a result of cessation of alcohol use. 7. Right pneumothorax, iatrogenic. Right check wall chest tube remains in place. Pneumothorax today is 15% to 20% per today's x-ray. 8. Subcutaneous emphysema remains on the right side upper chest wall and upper left chest wall just above the clavicles and down the lateral side of the right chest wall. PLAN: Continue to mobilize the patient, getting patient up daily in the chair. Pulmonology remains on the case and continues to follow the patient. Surgery remains on the case and Pleur-evac noted to have an air leak in his chest tube. Attempted placement to water seal; however, patient had a right collapsed lung. Patient to remain on suction for his chest tube. Pulmonology is also on the case. Awaiting an evaluation by Dr. Rivera for rehab placement. The patient was seen and examined by me, the nurse practitioner, and attending, Dr. Albert. The relevant points of the history, physical, diagnoses and plan were discussed as dictated above.
--- NOTE | 2016-06-03 17:59 | P.PN ---
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 Patient is awake and alert. No distress noted, no specific complaints. He is sitting up to the bedside chair. Oriented 3. Vital Signs: Afebrile Vital Signs - 24 hr 06/02/16 06/02/16 06/02/16 20:00 20:36 20:46 Temperature 96.8 F L Pulse Rate 71 72 Pulse Rate [ 76 Pulse Oximetery ] Respiratory 18 Rate Blood Pressure [Left Arm] Blood Pressure 112/59 [Right Arm Supine] O2 Sat by Pulse 93 L 93 L Oximetry 06/02/16 06/03/16 06/03/16 23:58 04:00 07:29 Temperature 96.8 F L 97 F L Pulse Rate 72 Pulse Rate [ 71 73 Pulse Oximetery ] Respiratory 18 18 Rate Blood Pressure 116/72 [Left Arm] Blood Pressure 130/80 [Right Arm Supine] O2 Sat by Pulse 96 96 Oximetry 06/03/16 06/03/16 06/03/16 07:39 08:00 11:30 Temperature 97.9 F Pulse Rate 72 72 Pulse Rate [ 84 Pulse Oximetery ] Respiratory 16 Rate Blood Pressure 154/73 [Left Arm] Blood Pressure [Right Arm Supine] O2 Sat by Pulse 95 Oximetry 06/03/16 06/03/16 11:40 12:00 Temperature 97.1 F L Pulse Rate 76 Pulse Rate [ 71 Pulse Oximetery ] Respiratory 18 Rate Blood Pressure 123/68 [Left Arm] Blood Pressure [Right Arm Supine] O2 Sat by Pulse 98 Oximetry Labs: Short CBC 06/03/16 Range/Units 05:48 WBC 13.2 H (3.8-10.6) k/uL Hgb 15.3 (13.0-17.5) gm/dL Hct 47.6 (39.0-53.0) % Plt Count 374 (150-450) k/uL Neutrophils # 10.0 H (1.3-7.7) k/uL BMP 06/03/16 05:44 Sodium 134 L Potassium 4.4 Chloride 94 L Carbon Dioxide 28 BUN 31 H Creatinine 1.02 Glucose 103 H Calcium 9.1 Lungs: Few scattered crackles to his bilateral bases, diminished to his right lower lobe. Essentially clear to his upper lobes. Respirations are symmetrical and unlabored. O2 sat: 98% on room air. I/S: 500-750 mL, reviewed with the patient importance of using his incentive spirometry every hour while awake. The patient did give a good return demonstration on his incentive spirometry. Heart: S1S2, regular rhythm and rate, positive for systolic murmur present. Remote telemetry showing normal sinus rhythm heart rate 81. Right chest incision clean dry and well approximated. No drainage noted. Dressing has been changed by Leah mohr RN today. Knee-high PROSPER hose and sequential compression devices in place to bilateral lower extremities. Abdomen: Soft, Positive bowel sounds present in all 4 quadrants. U/O: Adequate. Chest Tubes: Right pleural chest tube with intermittent air leak. Draining thin serosanguineous drainage. Chest tube remains to continuous low wall suction. 60 mL output in the last 8 hours, 210 mL output in the last 24 hours. 24 hr Total: Intake & Output 06/01/16 06/02/16 06/03/16 06/04/16 06:59 06:59 06:59 06:59 Intake Total 440 1050 360 Output Total 1160 990 530 250 Balance -720 -990 520 110 Weight 60.6 kg 58.8 kg 58.8 kg Active Medications Hydrocodone Bitart/Acetaminophen ([place] 7.5-325) 1 each PO Q6H PRN PRN Reason: Moderate Pain Last Admin: 06/03/16 14:37 Dose: 1 each Albuterol/Ipratropium (Duoneb 0.5 Mg-3 Mg/3 Ml Soln) 3 ml IH RT-Q1H PRN PRN Reason: Shortness Of Breath Or Wheezing Albuterol/Ipratropium (Duoneb 0.5 Mg-3 Mg/3 Ml Soln) 3 ml IH RT-QID [facility] Last Admin: 06/03/16 16:41 Dose: 3 ml Aspirin (Aspirin) 81 mg PO DAILY [facility] Last Admin: 06/03/16 08:32 Dose: 81 mg Atorvastatin Calcium (Lipitor) 40 mg PO DAILY [facility] Last Admin: 06/03/16 08:32 Dose: 40 mg Bisacodyl (Dulcolax) 10 mg RECTAL DAILY PRN PRN Reason: Constipation Diltiazem HCl (Cardizem Cd) 180 mg PO DAILY [facility] Last Admin: 06/03/16 08:32 Dose: 180 mg Haloperidol Lactate (Haldol) 5 mg IM Q6HR PRN PRN Reason: Agitation or Acute Psychosis Last Admin: 05/28/16 04:45 Dose: 5 mg Heparin Sodium (Porcine) (Heparin) 5,000 unit SQ Q12HR [facility] Last Admin: 06/03/16 08:34 Dose: 5,000 unit Hydrochlorothiazide (Hydrodiuril) 25 mg PO DAILY [facility] Last Admin: 06/03/16 08:33 Dose: 25 mg Loratadine (Claritin) 5 mg PO Q12HR PRN PRN Reason: Allergy Symptoms Last Admin: 05/29/16 17:53 Dose: 5 mg Metoclopramide HCl (Reglan) 5 mg IVP Q4HR PRN PRN Reason: Nausea And Vomiting Metoprolol Tartrate (Lopressor) 50 mg PO TID [facility] Last Admin: 06/03/16 16:53 Dose: 50 mg Miscellaneous Information (Magnesium Per Protocol) 1 each MISCELLANE DAILY PRN ; Protocol PRN Reason: Per Protocol Miscellaneous Information (Potassium Per Protocol) 1 each MISCELLANE DAILY PRN ; Protocol PRN Reason: Per Protocol Miscellaneous Information (Magnesium Per Protocol) 1 each MISCELLANE DAILY PRN ; Protocol PRN Reason: Per Protocol Miscellaneous Information (Magnesium Per Protocol) 1 each MISCELLANE DAILY PRN ; Protocol PRN Reason: Per Protocol Nicotine (Habitrol 21mg/24hr Patch) 1 patch TRANSDERM DAILY [facility] Last Admin: 06/03/16 08:31 Dose: 1 patch Nicotine Polacrilex (Nicorette Gum) 2 mg BUCCAL Q4HR PRN PRN Reason: Nicotine Cravings Ondansetron HCl (Zofran) 4 mg IVP Q8HR PRN PRN Reason: Nausea And Vomiting Pantoprazole Sodium (Protonix) 40 mg PO AC-BRKFST [facility] Last Admin: 06/03/16 06:32 Dose: Not Given Plan: 1. Pain control per when necessary orders. 2. Pulmonary management per Dr. Fisher's recommendations 3. Encourage use of his incentive spirometry every hour while awake. 4. Increase activity as tolerated, physical therapy to evaluate and treat. Patient is to ambulate in the room as tolerated with assistance. 5. Consult social work for discharge placement. Rehab placement, Dr. Rivera is following the patient. 6. Medical management per Dr Albert. 7. Right pleural chest tube to remained to low continuous wall suction as his repeat chest x-ray in a.m. 7. Magnesium replacement per protocol, magnesium level 2.1. repeat BMP in a.m. with magnesium level. 8. Further recommendations as patient progresses. Discharge planning in place. 9. Pathology result pending.
[2016-06-04 06:39] LABS: Basophils % (A) 0 %; CH 28.5; CHCM 33.5; Eosinophils # (A) 0.5 k/uL (0-0.7); Eosinophils % (A) 5 %; HCT 50.6 % (39.0-53.0); HDW 2.94; HGB 16.6 gm/dL (13.0-17.5); Luc # (Auto) 0.21; Luc % (Auto) 2; Lymphocytes # (A) 1.2 k/uL (1.0-4.8); Lymphocytes % (A) 12 %; MCH 28.2 pg (25.0-35.0); MCHC 32.9 g/dL (31.0-37.0); MCV 85.7 fL (80.0-100.0); Mean Platelet Volume 6.7; Monocytes # (A) 0.7 k/uL (0-1.0); Monocytes % (A) 7 %; Neutrophils # (A) 7.3 k/uL (1.3-7.7); Neutrophils % (A) 73 %; RDW 14.3 % (11.5-15.5); WBC 9.9 k/uL (3.8-10.6); WBC (Perox) 10.25
[2016-06-04] MEDS: PANTOPRAZOLE 40 MG TABLET PO SCH (06:45)
[2016-06-04 06:54] LABS: Anion Gap 11 mmol/L; Blood Urea Nitrogen 30 mg/dL (9-20); Calcium 9.3 mg/dL (8.4-10.2); Carbon Dioxide 28 mmol/L (22-30); Chloride 95 mmol/L (98-107); Glucose 98 mg/dL (74-99); Non-African American GFR(MDRD) >60 (>60 ml/min/1.73 sqM); Potassium 4.1 mmol/L (3.5-5.1); Sodium 134 mmol/L (137-145)
--- NOTE | 2016-06-04 07:27 | XR ---
EXAMINATION TYPE: XR chest 1V portable DATE OF EXAM: 06/04/2016 7:06 AM CLINICAL HISTORY: Difficulty breathing progress study. Post right-sided partial pneumonectomy. TECHNIQUE: Single AP portable upright view of the chest is obtained. COMPARISON: Chest x-ray from one day earlier FINDINGS: Overlying subcutaneous emphysema in the right chest extending to left chest is redemonstra mandeep making evaluation suboptimal. There is persistent right medial basilar chest tube. Right-sided p neumothorax is increased in size now estimated near 40%. There is stable right-sided mediastinal shif t or volume loss. Left lung remains clear. Cardiac silhouette size is stable and within normal limits . Osseous structures are intact. IMPRESSION: Worsening now moderate to borderline large right-sided pneumothorax estimated 40% with ri ght-sided chest tube redemonstrated. Stable right-sided volume loss is noted. A Yellow message has been communicated to Christine De MD~[id number] via the [employer] Critical Res ult system on 06/04/2016 7:24 AM, Message ID [id number].
[2016-06-04] MEDS: IPRATROPIUM-ALBUTEROL 3 ML NEB IH SCH ×4 (07:45→20:28)
[2016-06-04] MEDS: HEPARIN SODIUM,PORCINE 5,000 UNIT/ML 1 ML VIAL SQ SCH ×2 (09:17→21:19)
[2016-06-04] MEDS: NICOTINE 21MG/24HR PATCH TRANSDERM SCH (09:17)
[2016-06-04] MEDS: METOPROLOL TARTRATE 50 MG TAB PO SCH ×3 (09:17→21:19)
[2016-06-04] MEDS: HYDROCHLOROTHIAZIDE 25 MG TAB PO SCH (09:17)
[2016-06-04] MEDS: HYDROcodone/APAP 7.5-325MG 1 EACH TAB PO PRN ×2 (09:18→16:08)
[2016-06-04] MEDS: ATORVASTATIN 40 MG TAB PO SCH (09:18)
[2016-06-04] MEDS: DILTIAZEM CD 180 MG CAP.ER.24H PO SCH (09:18)
[2016-06-04] MEDS: ASPIRIN 81 MG CHEW PO SCH (09:18)
--- NOTE | 2016-06-04 12:09 | P.PN ---
Progress Note - Text Thoracic Surgery Nursing POD: #8 status post elective right thoracotomy, right lower and middle lobectomy , mediastinal lymph node dissection, cryoablation of intercostal nerves IV through VIII. Patient awake and alert, no distress noted, patient complains of nausea and just generally "not feeling well". Chest x-ray shows worsening right pneumothorax Vital Signs: Afebrile , T-max 98.4F Vital Signs - 24 hr 06/03/16 06/03/16 06/03/16 16:00 16:41 16:55 Temperature 97.3 F L Pulse Rate 78 76 Pulse Rate [ [employer] ] Pulse Rate [ 74 Pulse Oximetery ] Respiratory 18 Rate Blood Pressure 138/75 [Left Arm] Blood Pressure [Right Arm Supine] O2 Sat by Pulse 92 L Oximetry 06/03/16 06/03/16 06/03/16 20:00 20:45 20:56 Temperature 98.4 F Pulse Rate 80 80 Pulse Rate [ 73 [employer] ] Pulse Rate [ 73 Pulse Oximetery ] Respiratory 16 Rate Blood Pressure 136/80 [Left Arm] Blood Pressure [Right Arm Supine] O2 Sat by Pulse 95 Oximetry 06/04/16 06/04/16 06/04/16 00:00 04:00 07:46 Temperature 96.8 F L 97.9 F Pulse Rate 88 Pulse Rate [ 86 [employer] ] Pulse Rate [ 79 86 Pulse Oximetery ] Respiratory 16 16 Rate Blood Pressure 135/80 141/83 [Left Arm] Blood Pressure [Right Arm Supine] O2 Sat by Pulse 92 L 91 L Oximetry 06/04/16 06/04/16 06/04/16 08:00 08:01 11:37 Temperature 96.8 F L 96.6 F L Pulse Rate 84 Pulse Rate [ [employer] ] Pulse Rate [ 98 87 Pulse Oximetery ] Respiratory 18 18 Rate Blood Pressure 157/88 [Left Arm] Blood Pressure 140/85 [Right Arm Supine] O2 Sat by Pulse 96 96 Oximetry Labs: Short CBC 06/04/16 Range/Units 06:04 WBC 9.9 (3.8-10.6) k/uL Hgb 16.6 (13.0-17.5) gm/dL Hct 50.6 (39.0-53.0) % Plt Count 385 (150-450) k/uL Neutrophils # 7.3 (1.3-7.7) k/uL BMP 06/04/16 06:04 Sodium 134 L Potassium 4.1 Chloride 95 L Carbon Dioxide 28 BUN 30 H Creatinine 0.90 Glucose 98 Calcium 9.3 Lungs: respirations are unlabored, breath sounds diminished bilaterally O2 sat: 96% on room air Heart: S1S2, regular rate and rhythm portable telemetry shows a normal sinus rhythm with a rate of 93 chest incision clean with dressing clean and dry. Abdomen: Soft, Positive bowel sounds present in all 4 quadrants. U/O: patient is voiding adequate amounts of urine Chest Tubes: right pleural chest tube with 130 mL of serous drainage in the last 24 hours a large positive air leak 24 hr Total: Intake & Output 06/02/16 06/03/16 06/04/16 06/05/16 06:59 06:59 06:59 06:59 Intake Total 1050 360 Output Total 990 530 780 100 Balance -990 520 -420 -100 Weight 60.6 kg 58.8 kg 58.8 kg 57.3 kg Active Medications Hydrocodone Bitart/Acetaminophen ([place] 7.5-325) 1 each PO Q6H PRN PRN Reason: Moderate Pain Last Admin: 06/04/16 09:18 Dose: 1 each Albuterol/Ipratropium (Duoneb 0.5 Mg-3 Mg/3 Ml Soln) 3 ml IH RT-Q1H PRN PRN Reason: Shortness Of Breath Or Wheezing Albuterol/Ipratropium (Duoneb 0.5 Mg-3 Mg/3 Ml Soln) 3 ml IH RT-QID [facility] Last Admin: 06/04/16 11:52 Dose: Not Given Aspirin (Aspirin) 81 mg PO DAILY [facility] Last Admin: 06/04/16 09:18 Dose: 81 mg Atorvastatin Calcium (Lipitor) 40 mg PO DAILY [facility] Last Admin: 06/04/16 09:18 Dose: 40 mg Bisacodyl (Dulcolax) 10 mg RECTAL DAILY PRN PRN Reason: Constipation Diltiazem HCl (Cardizem Cd) 180 mg PO DAILY [facility] Last Admin: 06/04/16 09:18 Dose: 180 mg Haloperidol Lactate (Haldol) 5 mg IM Q6HR PRN PRN Reason: Agitation or Acute Psychosis Last Admin: 05/28/16 04:45 Dose: 5 mg Heparin Sodium (Porcine) (Heparin) 5,000 unit SQ Q12HR [facility] Last Admin: 06/04/16 09:17 Dose: 5,000 unit Hydrochlorothiazide (Hydrodiuril) 25 mg PO DAILY [facility] Last Admin: 06/04/16 09:17 Dose: 25 mg Loratadine (Claritin) 5 mg PO Q12HR PRN PRN Reason: Allergy Symptoms Last Admin: 05/29/16 17:53 Dose: 5 mg Metoclopramide HCl (Reglan) 5 mg IVP Q4HR PRN PRN Reason: Nausea And Vomiting Metoprolol Tartrate (Lopressor) 50 mg PO TID [facility] Last Admin: 06/04/16 09:17 Dose: 50 mg Miscellaneous Information (Magnesium Per Protocol) 1 each MISCELLANE DAILY PRN ; Protocol PRN Reason: Per Protocol Miscellaneous Information (Potassium Per Protocol) 1 each MISCELLANE DAILY PRN ; Protocol PRN Reason: Per Protocol Miscellaneous Information (Magnesium Per Protocol) 1 each MISCELLANE DAILY PRN ; Protocol PRN Reason: Per Protocol Miscellaneous Information (Magnesium Per Protocol) 1 each MISCELLANE DAILY PRN ; Protocol PRN Reason: Per Protocol Nicotine (Habitrol 21mg/24hr Patch) 1 patch TRANSDERM DAILY [facility] Last Admin: 06/04/16 09:17 Dose: 1 patch Nicotine Polacrilex (Nicorette Gum) 2 mg BUCCAL Q4HR PRN PRN Reason: Nicotine Cravings Ondansetron HCl (Zofran) 4 mg IVP Q8HR PRN PRN Reason: Nausea And Vomiting Pantoprazole Sodium (Protonix) 40 mg PO AC-BRKFST [facility] Last Admin: 06/04/16 06:45 Dose: 40 mg plan: cxr results noted Discussed with Dr. Fisher-will further evaluate patient and descending course of treatment Keep chest tube in place to suction
--- NOTE | 2016-06-04 12:43 | P.PN ---
Subjective Squamous cell carcinoma of the right lung This is a pleasant 71-year-old gentleman who was recently diagnosed with squamous cell carcinoma. He is now status post right middle and right lower lobectomies performed by Dr. Negron on 05/27/2016. He is seen again today in follow-up on the selective care unit. He remains awake and alert in no acute distress. Today's chest x-ray shows persistent extensive subcutaneous emphysema and a now moderate right upper lobe pneumothorax. The chest tube is in place. He was placed back on suction. Currently, he is resting fairly comfortably in bed. He denies any worsening shortness of breath, cough or congestion. He is maintaining good O2 saturations up to 100% on room air. He' s been afebrile. His right-sided chest discomfort is fairly well controlled. The patient is seen again today in follow-up on 05/31/2016 on the selective care unit. He is currently awake and alert in no acute distress. He states his breathing is somewhat easier today as compared to yesterday. He continues to work with his incentive spirometer. His chest tube remains in place. There is still an air leak. His chest x-ray does not show any significant pneumothorax. He is maintaining good O2 saturations in the upper 90s on room air. He remains afebrile. On , the patient is doing well. He still having a high requirement for pain medication. He is however, comfortable. He is resting comfortably in bed. He has a right-sided chest tube. No evidence of any air leak. The output from the chest tube was noted. Today chest x-ray shows no significant right-sided pneumothorax. Based on cardiothoracic surgery recommendations the chest tube was placed to waterseal. The patient is on room air oxygen. Tolerating diet. No nausea. No vomiting. No pleurisy. He is seen again today on the selective care unit 06/02/2016. He has been up ambulating with assistance from physical therapy. He denies any worsening shortness of breath. He remains with a dry nonproductive cough. His chest tube remains in place. There is intermittent leak. He is maintaining good O2 saturations in the mid 90s on room air. He is afebrile. His pain is well controlled. On 06/03/2016 the patient is being seen in follow-up. He still has a right- sided chest tube. Airleak is still present although less compared to yesterday. Today chest x-ray shows a very tiny right apical pneumothorax. The patient is quite weak. Nevertheless is able to move around with help and ambulate. Appetite is still poor. No chest pain. No nausea. No vomiting. No abdominal pain. No change in mental status. The patient postoperative findings showed a large 6.5 and to meet her mass, consistent with squamous cell carcinoma, and there is involvement of the pleural surface, and this is considered to be T2b, N0 and M0 lesion. On 06/04/2016, the patient has a large right-sided pneumothorax. The right- sided chest tube is in good location and there is a significant amount of air leak noted on today's evaluation. The patient also has subclinical his emphysema along the right chest laterally and anteriorly extending to his neck. The patient is having some skeletal chest wall pain along the right chest area. The patient however is calm and comfortable. No significant respiratory distress. He is taking Manson for pain control. Hemodynamically stable. No other complaints otherwise for now. He is weak. Oral intake is low and the patient is not meeting his caloric requirements. Note that the patient has a T2 N0 M0 disease, squamous cell lung cancer. Objective - Vital Signs Vital signs: Vital Signs Temp 96.6 F L 06/04/16 11:37 Pulse 87 06/04/16 11:37 Resp 18 06/04/16 11:37 BP 140/85 06/04/16 11:37 Pulse Ox 96 06/04/16 11:37 Intake & Output 06/03/16 06/04/16 06/04/16 18:59 06:59 18:59 Intake Total 360 Output Total 250 530 100 Balance 110 -530 -100 Weight 58.8 kg 57.3 kg Intake: Oral 360 Output: Chest Tube Drainage 130 Chest Tube Right 130 Urine 250 400 100 Other: Voiding Method Urinal Urinal Urinal # Voids 1 # Bowel Movements 0 - Exam Head exam was generally normal. There was no scleral icterus or corneal arcus. Mucous membranes were moist.Neck was supple and without jugular venous distension, thyromegaly, or carotid bruits. Carotids were easily palpable bilaterally. There was no adenopathy.lung sounds are diminished on the right compared to the left. The patient has a right-sided chest tube also in place. The patient has diminished breath sound in the right compared to the left. The patient also has subcutaneous emphysema along the right lateral anterior chest extending to his neck. Cardiac exam revealed the PMI to be normally situated and sized. The rhythm was regular and no extrasystoles were noted during several minutes of auscultation. The first and second heart sounds were normal and physiologic splitting of the second heart sound was noted. There were no murmurs, rubs, clicks, or gallops.Abdominal exam revealed normal bowel sounds. The abdomen was soft, non-tender, and without masses, organomegaly, or appreciable enlargement of the abdominal aorta.Examination of the extremities revealed easily palpable radial, femoral and pedal pulses. There was no cyanosis , clubbing or edema. - Labs CBC & Chem 7: 06/04/16 06:04 06/04/16 06:04 Labs: Abnormal Lab Results - Last 24 Hours (Table) 06/04/16 Range/Units 06:04 Sodium 134 L (137-145) mmol/L Chloride 95 L (98-107) mmol/L BUN 30 H (9-20) mg/dL Assessment and Plan Plan: Impression: #1 Squamous cell carcinoma. Status post right middle and right lower lobectomy , postoperative day #8. The patient has T2B, N0, M0 disease. #2 persistent air leak with a fair sized pneumothorax involving the right lung. The right-sided chest tube is in good location. Suspect leak from the suture line. May need another chest tube insertion versus a reexploration surgically. #3 Chronic and ongoing tobacco dependence. #4 Hypertension. #5 Gastroesophageal reflux fluid disease. #6 chest wall pain secondary to above #7 history of smoking Plan: Keep the chest tube in place and keep it to wall suction. Discussed the possibility of putting a second chest tube versus a surgical aspiration and repair of the air leak. This will be discussed with the cardiothoracic surgeons. Keep Manson for pain control. Continue the bronchodilators. Increase oral intake. We'll continue to follow.
[2016-06-04] MEDS: ONDANSETRON 4 MG/2 ML VIAL IVP PRN (16:23)
[2016-06-05] MEDS: MORPHINE SULFATE 4 MG/ML SYRINGE IVP PRN ×5 (00:01→22:49)
[2016-06-05 06:01] LABS: Basophils # (A) 0.1 k/uL (0-0.2); Basophils % (A) 1 %; CHCM 34.5; Eosinophils # (A) 0.2 k/uL (0-0.7); Eosinophils % (A) 2 %; HDW 3.12; HGB 17.7 gm/dL (13.0-17.5); Luc # (Auto) 0.26; Luc % (Auto) 2; Lymphocytes # (A) 1.4 k/uL (1.0-4.8); Lymphocytes % (A) 13 %; MCH 28.4 pg (25.0-35.0); MCHC 33.5 g/dL (31.0-37.0); MCV 84.7 fL (80.0-100.0); Mean Platelet Volume 6.6; Monocytes # (A) 0.7 k/uL (0-1.0); Monocytes % (A) 6 %; Neutrophils # (A) 8.2 k/uL (1.3-7.7); Neutrophils % (A) 76 %; RBC 6.25 m/uL (4.30-5.90); RDW 14.2 % (11.5-15.5); WBC 10.9 k/uL (3.8-10.6); WBC (Perox) 10.81
[2016-06-05] MEDS: PANTOPRAZOLE 40 MG TABLET PO SCH (06:47)
--- NOTE | 2016-06-05 07:20 | XR ---
EXAMINATION TYPE: XR chest 1V portable DATE OF EXAM: 06/05/2016 6:59 AM CLINICAL HISTORY: Difficulty breathing and chest 2 progress study. TECHNIQUE: Single AP portable upright view of the chest is obtained. COMPARISON: Chest x-ray from one day earlier FINDINGS: Extensive overlying subcutaneous emphysema in the right chest extending to left chest is r edemonstrated making evaluation suboptimal. There is persistent right medial basilar chest tube. Righ t-sided pneumothorax is diminished in size now estimated near 10%. There is stable right-sided medias tinal shift or volume loss. Left lung remains predominantly clear. Cardiac silhouette size is stable and within normal limits. Osseous structures are intact. IMPRESSION: Right-sided pneumothorax now estimated 10% diminished from prior. Persistent background c hronic emphysematous change with right-sided volume loss and extensive overlying subcutaneous emphyse ma noted.
[2016-06-05] MEDS: IPRATROPIUM-ALBUTEROL 3 ML NEB IH SCH ×4 (07:52→20:19)
[2016-06-05] MEDS: NICOTINE 21MG/24HR PATCH TRANSDERM SCH (10:08)
[2016-06-05] MEDS: METOPROLOL TARTRATE 50 MG TAB PO SCH ×3 (10:08→22:51)
[2016-06-05] MEDS: ASPIRIN 81 MG CHEW PO SCH (10:09)
[2016-06-05] MEDS: ATORVASTATIN 40 MG TAB PO SCH (10:09)
[2016-06-05] MEDS: HEPARIN SODIUM,PORCINE 5,000 UNIT/ML 1 ML VIAL SQ SCH ×2 (10:09→22:51)
[2016-06-05] MEDS: HYDROCHLOROTHIAZIDE 25 MG TAB PO SCH (10:09)
[2016-06-05] MEDS: DILTIAZEM CD 180 MG CAP.ER.24H PO SCH (10:09)
--- NOTE | 2016-06-05 12:56 | P.PN ---
Subjective Squamous cell carcinoma of the right lung This is a pleasant 71-year-old gentleman who was recently diagnosed with squamous cell carcinoma. He is now status post right middle and right lower lobectomies performed by Dr. Negron on 05/27/2016. He is seen again today in follow-up on the selective care unit. He remains awake and alert in no acute distress. Today's chest x-ray shows persistent extensive subcutaneous emphysema and a now moderate right upper lobe pneumothorax. The chest tube is in place. He was placed back on suction. Currently, he is resting fairly comfortably in bed. He denies any worsening shortness of breath, cough or congestion. He is maintaining good O2 saturations up to 100% on room air. He' s been afebrile. His right-sided chest discomfort is fairly well controlled. The patient is seen again today in follow-up on 05/31/2016 on the selective care unit. He is currently awake and alert in no acute distress. He states his breathing is somewhat easier today as compared to yesterday. He continues to work with his incentive spirometer. His chest tube remains in place. There is still an air leak. His chest x-ray does not show any significant pneumothorax. He is maintaining good O2 saturations in the upper 90s on room air. He remains afebrile. On , the patient is doing well. He still having a high requirement for pain medication. He is however, comfortable. He is resting comfortably in bed. He has a right-sided chest tube. No evidence of any air leak. The output from the chest tube was noted. Today chest x-ray shows no significant right-sided pneumothorax. Based on cardiothoracic surgery recommendations the chest tube was placed to waterseal. The patient is on room air oxygen. Tolerating diet. No nausea. No vomiting. No pleurisy. He is seen again today on the selective care unit 06/02/2016. He has been up ambulating with assistance from physical therapy. He denies any worsening shortness of breath. He remains with a dry nonproductive cough. His chest tube remains in place. There is intermittent leak. He is maintaining good O2 saturations in the mid 90s on room air. He is afebrile. His pain is well controlled. On 06/03/2016 the patient is being seen in follow-up. He still has a right- sided chest tube. Airleak is still present although less compared to yesterday. Today chest x-ray shows a very tiny right apical pneumothorax. The patient is quite weak. Nevertheless is able to move around with help and ambulate. Appetite is still poor. No chest pain. No nausea. No vomiting. No abdominal pain. No change in mental status. The patient postoperative findings showed a large 6.5 and to meet her mass, consistent with squamous cell carcinoma, and there is involvement of the pleural surface, and this is considered to be T2b, N0 and M0 lesion. On 06/04/2016, the patient has a large right-sided pneumothorax. The right- sided chest tube is in good location and there is a significant amount of air leak noted on today's evaluation. The patient also has subclinical his emphysema along the right chest laterally and anteriorly extending to his neck. The patient is having some skeletal chest wall pain along the right chest area. The patient however is calm and comfortable. No significant respiratory distress. He is taking [place] for pain control. Hemodynamically stable. No other complaints otherwise for now. He is weak. Oral intake is low and the patient is not meeting his caloric requirements. Note that the patient has a T2 N0 M0 disease, squamous cell lung cancer. On 06/05/2016, the patient is stable. He still has a large wide-open air leak to the chest tube. The pneumothorax on the right side of the lung has improved and sized. It still present occupying probably around 15-20% of the right hemithorax. The patient also has subcutaneous emphysema along the right lateral chest and anterior chest area. Pain is under good control. He is using incentive spirometer. Discussed the case with the surgeon. There may be ultimately possibility of taking this patient back to the operating room to repair The air leak Objective - Vital Signs Vital signs: Vital Signs Temp 97.5 F L 06/05/16 08:00 Pulse 84 06/05/16 12:00 Resp 14 06/05/16 08:00 BP 130/88 06/05/16 08:00 Pulse Ox 93 L 06/05/16 08:00 Intake & Output 06/04/16 06/05/16 06/05/16 18:59 06:59 18:59 Output Total 570 1040 150 Balance -570 -1040 -150 Weight 57.3 kg Output: Chest Tube Drainage 140 Chest Tube Right 140 Drainage 120 Right Lower Chest 120 Urine 450 600 150 Emesis 300 Other: Voiding Method Urinal Urinal Urinal # Voids 0 1 # Bowel Movements 0 - Exam Head exam was generally normal. There was no scleral icterus or corneal arcus. Mucous membranes were moist.Neck was supple and without jugular venous distension, thyromegaly, or carotid bruits. Carotids were easily palpable bilaterally. There was no adenopathy.lung sounds are diminished on the right compared to the left. The patient has a right-sided chest tube also in place. The patient has diminished breath sound in the right compared to the left. The patient also has subcutaneous emphysema along the right lateral anterior chest extending to his neck. Cardiac exam revealed the PMI to be normally situated and sized. The rhythm was regular and no extrasystoles were noted during several minutes of auscultation. The first and second heart sounds were normal and physiologic splitting of the second heart sound was noted. There were no murmurs, rubs, clicks, or gallops.Abdominal exam revealed normal bowel sounds. The abdomen was soft, non-tender, and without masses, organomegaly, or appreciable enlargement of the abdominal aorta.Examination of the extremities revealed easily palpable radial, femoral and pedal pulses. There was no cyanosis , clubbing or edema. - Labs CBC & Chem 7: 06/05/16 05:38 06/04/16 06:04 Labs: Abnormal Lab Results - Last 24 Hours (Table) 06/05/16 Range/Units 05:38 WBC 10.9 H (3.8-10.6) k/uL RBC 6.25 H (4.30-5.90) m/uL Hgb 17.7 H (13.0-17.5) gm/dL Plt Count 534 H (150-450) k/uL Neutrophils # 8.2 H (1.3-7.7) k/uL Assessment and Plan Plan: Impression: #1 Squamous cell carcinoma. Status post right middle and right lower lobectomy , postoperative day #9. The patient has T2B, N0, M0 disease. #2 persistent air leak with a fair sized pneumothorax involving the right lung. The right-sided chest tube is in good location. Suspect leak from the suture line. There is improvement in the size of the pneumothorax on the right. There is quite extensive air leak that is ongoing through the chest tube and the patient has still a 50-20% pneumothorax on the right. In addition, the patient has subcu emphysema #3 Chronic and ongoing tobacco dependence. #4 Hypertension. #5 Gastroesophageal reflux fluid disease. #6 chest wall pain secondary to above #7 history of smoking Plan: Keep the chest tube in place and keep it to wall suction. Continue the current treatment plan. Consider surgical exploration if no improvement.
--- NOTE | 2016-06-05 13:00 | P.PN ---
Subjective Principal diagnosis: Non-small cell carcinoma right lower lobe of the lung POD #9 right thoracotomy, right lower and middle lobectomy, mediastinal lymph node dissection, cryoablation of intercostal nerves IV through VIII Patient currently sitting up in bed in no apparent distress. Very frustrated, needs encouragement to perform ADLs. Objective - Vital Signs Vital signs: Vital Signs Temp 97.5 F L 06/05/16 08:00 Pulse 80 06/05/16 08:06 Resp 14 06/05/16 08:00 BP 130/88 06/05/16 08:00 Pulse Ox 93 L 06/05/16 08:00 Intake & Output 06/04/16 06/05/16 06/05/16 18:59 06:59 18:59 Output Total 570 1040 Balance -570 -1040 Weight 57.3 kg Output: Chest Tube Drainage 140 Chest Tube Right 140 Drainage 120 Right Lower Chest 120 Urine 450 600 Emesis 300 Other: Voiding Method Urinal Urinal # Voids 0 1 # Bowel Movements 0 - Constitutional General appearance: Present: no acute distress - Respiratory Details: Lungs sounds diminished bilaterally. Respirations even, nonlabored. Currently on room air. Able to achieve 1000 mL on incentive spirometry. Right pleural chest tube drained 80 mL serosanguineous fluid overnight, 270 mL in the last 24 hours. Chest tube currently at -30 cm wall suction, patient still has persistent air leak. Subcu emphysema can be felt across anterior upper chest wall as well as right side of the neck. - Cardiovascular Details: S1, S2 present. Regular rate and rhythm, normal sinus rhythm on telemetry. No events noted overnight on telemetry. - Gastrointestinal Gastrointestinal Comment(s): Abdomen soft, nontender, nondistended. Active bowel sounds 4 quadrants. Tolerating diet. Per report patient did have 300 mL coffee-ground emesis approximately 3 AM. No further complaints of nausea, no further emesis. - Genitourinary Genitourinary Comment(s): Patient continues to void per urinal. - Musculoskeletal Musculoskeletal: Present: gait normal, strength equal bilaterally - Psychiatric Psychiatric: Present: A&O x's 3, appropriate affect - Allied health notes Allied health notes reviewed: nursing - Labs CBC & Chem 7: 06/05/16 05:38 06/04/16 06:04 Labs: Abnormal Lab Results - Last 24 Hours (Table) 06/05/16 Range/Units 05:38 WBC 10.9 H (3.8-10.6) k/uL RBC 6.25 H (4.30-5.90) m/uL Hgb 17.7 H (13.0-17.5) gm/dL Plt Count 534 H (150-450) k/uL Neutrophils # 8.2 H (1.3-7.7) k/uL - Imaging and Cardiology Chest x-ray: report reviewed, image reviewed Assessment and Plan (1) Non-small cell carcinoma of right lung Status: Acute Plan: 1. Encourage patient to be out of bed all day. Increase activity in his room, physical therapy following. 2. Encourage incentive spirometry use. 3. Continue pleural chest tube to wall suction. Pathology results pending. 4. Pain management with ordered medication regimen. 5. Comorbid medical problems to be managed by internal medicine service. 6. Discharge planning in progress, social work, consulted for rehab placement, Dr. Rivera is following the patient 7. More recommendations as patient progresses. Time with Patient: Greater than 30
--- NOTE | 2016-06-05 17:13 | P.PN ---
Subjective 71-year-old gentleman that is admitted to the hospital after a right middle and lower lobectomies done by Dr. Negron on 2016. Patient was noted to have squamous cell cancer T2 be staging. Patient has had persistent pneumothorax. Has had a chest tube in place. Suction was increased overnight. Today states to be doing well denies having headaches blurry vision, nausea, vomiting, diarrhea. Objective - Vital Signs Vital signs: Vital Signs Temp 97.5 F L 06/05/16 08:00 Pulse 112 H 06/05/16 16:11 Resp 18 06/05/16 16:00 BP 122/84 06/05/16 16:00 Pulse Ox 95 06/05/16 16:00 Intake & Output 06/04/16 06/05/16 06/05/16 18:59 06:59 18:59 Intake Total 120 Output Total 570 1040 150 Balance -570 -1040 -30 Weight 57.3 kg Intake: Oral 120 Output: Chest Tube Drainage 140 Chest Tube Right 140 Drainage 120 Right Lower Chest 120 Urine 450 600 150 Emesis 300 Other: Voiding Method Urinal Urinal Urinal # Voids 0 1 150 # Bowel Movements 0 0 - Exam Physical exam Gen. appearance oriented 3 in no distress Neck is supple no JVD Lungs diminished breath sounds predominantly on the right side no significant rhonchi wheezing or crackles Heart S1-S2 heard regular rate and rhythm no murmurs appreciated Abdomen is soft nontender no organomegaly bowel sounds are intact Neurologically cranial nerves II-12 grossly intact no focal motor or sensory deficits noted Skin no abnormalities appreciated - Labs CBC & Chem 7: 06/05/16 05:38 06/04/16 06:04 Labs: Abnormal Lab Results - Last 24 Hours (Table) 06/05/16 Range/Units 05:38 WBC 10.9 H (3.8-10.6) k/uL RBC 6.25 H (4.30-5.90) m/uL Hgb 17.7 H (13.0-17.5) gm/dL Plt Count 534 H (150-450) k/uL Neutrophils # 8.2 H (1.3-7.7) k/uL Assessment and Plan Plan: #1 SCC of the lung status post right middle and lower lobectomies #2 pneumothorax as expected from the surgical procedure however persistent continue chest tube management as per cardiothoracic surgery #3 ongoing tobacco dependency and possible underlying COPD #4 history of hypertension #5 GERD #6 history of sciatica Plan Continue ongoing care patient has had isolated episodes of high blood pressure. Chest tube management per cardiothoracic surgery will continue monitoring blood pressure. Pain control IVS DVT prophylaxis. Surgical exploration is being discussed between pulmonology and the CTS. We'll follow.
[2016-06-06] MEDS: MORPHINE SULFATE 4 MG/ML SYRINGE IVP PRN ×5 (04:57→21:39)
[2016-06-06] MEDS: PANTOPRAZOLE 40 MG TABLET PO SCH (07:02)
--- NOTE | 2016-06-06 07:36 | XR ---
EXAMINATION TYPE: XR chest 1V portable DATE OF EXAM: 06/06/2016 7:12 AM HISTORY: Postoperative right middle and lower lobectomy COMPARISON: 06/05/2016 TECHNIQUE: Single view of the chest is submitted. FINDINGS: Postoperative changes of right middle and right lower lobe lobectomy. Right-sided chest tube is in pl tay. There is persistent right apical pneumothorax which appears to be slightly smaller in size. Exte nsive subcutaneous emphysema persists. The left lung is mildly hyperinflated. There is no evidence for focal infiltrate. The heart is stable. Hilar and mediastinal structures are within normal limits. Degenerative changes are seen of the dorsal spine. IMPRESSION: 1. Postoperative changes as noted. Right-sided pneumothorax persists although slightly smaller in si ze.
[2016-06-06] MEDS: NICOTINE 21MG/24HR PATCH TRANSDERM SCH (08:41)
[2016-06-06] MEDS: ASPIRIN 81 MG CHEW PO SCH (08:43)
[2016-06-06] MEDS: ATORVASTATIN 40 MG TAB PO SCH (08:43)
[2016-06-06] MEDS: METOPROLOL TARTRATE 50 MG TAB PO SCH ×3 (08:43→21:38)
[2016-06-06] MEDS: HYDROCHLOROTHIAZIDE 25 MG TAB PO SCH (08:43)
[2016-06-06] MEDS: DILTIAZEM CD 240 MG CAP.ER.24H PO SCH (08:44)
[2016-06-06] MEDS: HEPARIN SODIUM,PORCINE 5,000 UNIT/ML 1 ML VIAL SQ SCH ×2 (08:44→21:36)
[2016-06-06] MEDS: IPRATROPIUM-ALBUTEROL 3 ML NEB IH SCH ×4 (09:09→21:14)
--- NOTE | 2016-06-06 12:09 | P.PN ---
Subjective Principal diagnosis: Non-small cell carcinoma right lower lobe of the lung POD #10 right thoracotomy, right lower and middle lobectomy, mediastinal lymph node dissection, cryoablation of intercostal nerves IV through VIII Patient currently sitting up in bed in no apparent distress. No new questions or concerns at this time. Air leak in right chest tube still present, suctioned remains at -20 cm. Objective - Vital Signs Vital signs: Vital Signs Temp 97.1 F L 06/06/16 08:00 Pulse 84 06/06/16 09:21 Resp 18 06/06/16 08:00 BP 142/72 06/06/16 08:00 Pulse Ox 94 L 06/06/16 09:12 Intake & Output 06/05/16 06/06/16 06/06/16 18:59 06:59 18:59 Intake Total 120 0 Output Total 270 730 350 Balance -150 -730 -350 Intake: IV 0 NS 0 Oral 120 Output: Chest Tube Drainage 130 Chest Tube Right 130 Drainage 120 Right Lower Chest 120 Urine 150 600 350 Other: Voiding Method Urinal # Voids 150 # Bowel Movements 0 - Constitutional General appearance: Present: cooperative, no acute distress - Respiratory Details: Lungs sounds diminished bilaterally. Respirations even, nonlabored. Remains on room air. Right pleural chest tube with 130 mL fluid output in the last 24 hours, air leak still present. - Cardiovascular Details: S1, S2 present, regular rate and rhythm, normal sinus rhythm on telemetry. - Gastrointestinal Gastrointestinal Comment(s): Abdomen soft, nontender, nondistended. Active bowel sounds 4 quadrants. Tolerating diet. - Genitourinary Genitourinary Comment(s): Continues to void clear yellow urine. - Musculoskeletal Musculoskeletal: Present: gait normal, strength equal bilaterally - Psychiatric Psychiatric: Present: A&O x's 3, appropriate affect, intact judgment & insight - Allied health notes Allied health notes reviewed: nursing - Labs CBC & Chem 7: 06/05/16 05:38 06/04/16 06:04 - Imaging and Cardiology Chest x-ray: report reviewed, image reviewed Assessment and Plan (1) Non-small cell carcinoma of right lung Status: Acute Plan: 1. Encourage patient to be out of bed all day. Increase activity in his room, physical therapy following. 2. Encourage incentive spirometry use. 3. Continue pleural chest tube to -20 cm wall suction. Pathology results pending. 4. Pain management with ordered medication regimen. 5. Comorbid medical problems to be managed by internal medicine service. 6. Discharge planning in progress, patient will need to go to a facility upon discharge 7. More recommendations as patient progresses. Time with Patient: Greater than 30
--- NOTE | 2016-06-06 14:23 | P.PN ---
Subjective Principal diagnosis: Squamous cell carcinoma of the right lung, status post right lower lobectomy and right middle lobectomy postoperative day #10 This is a pleasant 71-year-old gentleman who was recently diagnosed with squamous cell carcinoma. He is now status post right middle and right lower lobectomies performed by Dr. Negron on 05/27/2016. He is seen again today in follow-up on the selective care unit. He remains awake and alert in no acute distress. Today's chest x-ray shows persistent extensive subcutaneous emphysema and a now moderate right upper lobe pneumothorax. The chest tube is in place. He was placed back on suction. Currently, he is resting fairly comfortably in bed. He denies any worsening shortness of breath, cough or congestion. He is maintaining good O2 saturations up to 100% on room air. He' s been afebrile. His right-sided chest discomfort is fairly well controlled. The patient is seen again today in follow-up on 05/31/2016 on the selective care unit. He is currently awake and alert in no acute distress. He states his breathing is somewhat easier today as compared to yesterday. He continues to work with his incentive spirometer. His chest tube remains in place. There is still an air leak. His chest x-ray does not show any significant pneumothorax. He is maintaining good O2 saturations in the upper 90s on room air. He remains afebrile. On , the patient is doing well. He still having a high requirement for pain medication. He is however, comfortable. He is resting comfortably in bed. He has a right-sided chest tube. No evidence of any air leak. The output from the chest tube was noted. Today chest x-ray shows no significant right-sided pneumothorax. Based on cardiothoracic surgery recommendations the chest tube was placed to waterseal. The patient is on room air oxygen. Tolerating diet. No nausea. No vomiting. No pleurisy. He is seen again today on the selective care unit 06/02/2016. He has been up ambulating with assistance from physical therapy. He denies any worsening shortness of breath. He remains with a dry nonproductive cough. His chest tube remains in place. There is intermittent leak. He is maintaining good O2 saturations in the mid 90s on room air. He is afebrile. His pain is well controlled. On 06/03/2016 the patient is being seen in follow-up. He still has a right- sided chest tube. Airleak is still present although less compared to yesterday. Today chest x-ray shows a very tiny right apical pneumothorax. The patient is quite weak. Nevertheless is able to move around with help and ambulate. Appetite is still poor. No chest pain. No nausea. No vomiting. No abdominal pain. No change in mental status. The patient postoperative findings showed a large 6.5 and to meet her mass, consistent with squamous cell carcinoma, and there is involvement of the pleural surface, and this is considered to be T2b, N0 and M0 lesion. On 06/04/2016, the patient has a large right-sided pneumothorax. The right- sided chest tube is in good location and there is a significant amount of air leak noted on today's evaluation. The patient also has subclinical his emphysema along the right chest laterally and anteriorly extending to his neck. The patient is having some skeletal chest wall pain along the right chest area. The patient however is calm and comfortable. No significant respiratory distress. He is taking [place] for pain control. Hemodynamically stable. No other complaints otherwise for now. He is weak. Oral intake is low and the patient is not meeting his caloric requirements. Note that the patient has a T2 N0 M0 disease, squamous cell lung cancer. On 06/05/2016, the patient is stable. He still has a large wide-open air leak to the chest tube. The pneumothorax on the right side of the lung has improved and sized. It still present occupying probably around 15-20% of the right hemithorax. The patient also has subcutaneous emphysema along the right lateral chest and anterior chest area. Pain is under good control. He is using incentive spirometer. Discussed the case with the surgeon. There may be ultimately possibility of taking this patient back to the operating room to repair The air leak On 06/06/2016, patient continues to have chest tube in place, continues to have airleak, minimal apical pneumothorax is noted, much smaller compared to the last few days. Clinically the patient is doing well, no cough no wheezing no shortness of breath. Minimal subcu emphysema is noted. Chest x-ray was reviewed. Objective - Vital Signs Vital signs: Vital Signs Temp 97.1 F L 06/06/16 08:00 Pulse 80 06/06/16 12:45 Resp 18 06/06/16 12:00 BP 104/67 06/06/16 12:00 Pulse Ox 94 L 06/06/16 12:00 Intake & Output 06/05/16 06/06/16 06/06/16 18:59 06:59 18:59 Intake Total 120 0 100 Output Total 270 730 650 Balance -150 -730 -550 Intake: IV 0 NS 0 Oral 120 100 Output: Chest Tube Drainage 130 Chest Tube Right 130 Drainage 120 Right Lower Chest 120 Urine 150 600 650 Other: Voiding Method Urinal # Voids 150 1 # Bowel Movements 0 - Exam Head exam was generally normal. There was no scleral icterus or corneal arcus. Mucous membranes were moist.Neck was supple and without jugular venous distension, thyromegaly, or carotid bruits. Carotids were easily palpable bilaterally. There was no adenopathy.lung sounds are diminished on the right compared to the left. The patient has a right-sided chest tube also in place. The patient has diminished breath sound in the right compared to the left. The patient also has subcutaneous emphysema along the right lateral anterior chest extending to his neck. Cardiac exam revealed the PMI to be normally situated and sized. The rhythm was regular and no extrasystoles were noted during several minutes of auscultation. The first and second heart sounds were normal and physiologic splitting of the second heart sound was noted. There were no murmurs, rubs, clicks, or gallops.Abdominal exam revealed normal bowel sounds. The abdomen was soft, non-tender, and without masses, organomegaly, or appreciable enlargement of the abdominal aorta.Examination of the extremities revealed easily palpable radial, femoral and pedal pulses. There was no cyanosis , clubbing or edema. - Labs CBC & Chem 7: 06/05/16 05:38 06/04/16 06:04 Assessment and Plan Plan: #1 Squamous cell carcinoma. Status post right middle and right lower lobectomy , postoperative day #10. The patient has T2B, N0, M0 disease. #2 persistent air leak with a fair sized pneumothorax involving the right lung. The right-sided chest tube is in good location. Suspect leak from the suture line. There is improvement in the size of the pneumothorax on the right. There is quite extensive air leak that is ongoing through the chest tube and the patient has still a 50-20% pneumothorax on the right. In addition, the patient has subcu emphysema #3 Chronic and ongoing tobacco dependence. #4 Hypertension. #5 Gastroesophageal reflux fluid disease. #6 chest wall pain secondary to above #7 history of smoking Recommendation: Continue wall suction, consider surgical intervention and exploration if no improvement. We'll continue to follow. Time with Patient: Less than 30
[2016-06-06] MEDS: HYDROcodone/APAP 7.5-325MG 1 EACH TAB PO PRN (14:36)
--- NOTE | 2016-06-06 20:06 | PN ---
SUBJECTIVE DATA/INTERVAL HISTORY: This is a 71-year-old gentleman who was admitted to the hospital. He is postoperative day 10 and from right lower and middle lobectomy. Patient's postoperative course has been complicated with subcutaneous emphysema and persistent pneumothorax. Patient was seen today in ongoing progress. Denies having any difficulty breathing, cough, nausea, vomiting, abdominal pain, diarrhea. Today patient continues to have a minimal apical pneumothorax; however, improved from the prior chest x-rays. Patient is currently on wall suction at this time with a chest tube on the right side. Subcutaneous emphysema is noted. OBJECTIVE DATA: Temperature 97.1, heart rate 80, respiratory rate 18, blood pressure 104/67. Saturating 94% on room air. GENERAL APPEARANCE: Alert and oriented x3. Does not appear to be in any distress. Neck is supple. No JVD. CHEST CAVITY: Subcutaneous emphysema extending up to the clavicle on the right side. Right-sided chest tube is noted. Air movement is diminished on the left side. Air movement is noted better than on the right. No wheezing, rhonchi or crackles appreciated. ABDOMEN: Soft, nontender. No organomegaly. CHEST: S1, S2 heard. No murmurs appreciated. LOWER EXTREMITIES: No significant edema noted. NEURO: No focal motor or sensory deficits noted. LABORATORY DATA: Hemoglobin 17.7, hematocrit 10.9, platelets of 534. Sodium 134, potassium 4.1, chloride 95, bicarb 28. BUN 30, creatinine 0.90. ASSESSMENT AND PLAN: 1. Right middle and lower lobectomy with a diagnosis of squamous cell carcinoma T2b N0 M0. 2. Persistent air leak and subcutaneously emphysema, currently stable at this time. 3. Ongoing tobacco use with underlying chronic obstructive pulmonary disease. 4. Hypertension. 5. Gastroesophageal reflux disease. 6. Pleurisy. RECOMMENDATIONS: Continue ongoing care. Defer to Cardiothoracic Surgery in regards to timing of discontinuing wall suction. I did discuss with Dr. Whitehead, who stated that patient would require prolonged management with serial x-rays. Will continue current management at this time, continue wall suction. Vitals and labs are stable at this time. Will follow.
[2016-06-07] MEDS: MORPHINE SULFATE 4 MG/ML SYRINGE IVP PRN ×5 (02:56→20:56)
[2016-06-07 06:39] LABS: Basophils # (A) 0.1 k/uL (0-0.2); Basophils % (A) 0 %; CH 28.7; CHCM 33.8; Eosinophils # (A) 0.7 k/uL (0-0.7); Eosinophils % (A) 5 %; HCT 55.8 % (39.0-53.0); HDW 2.94; Luc # (Auto) 0.18; Luc % (Auto) 1; Lymphocytes # (A) 1.8 k/uL (1.0-4.8); Lymphocytes % (A) 12 %; MCH 27.6 pg (25.0-35.0); MCHC 32.2 g/dL (31.0-37.0); MCV 85.6 fL (80.0-100.0); Mean Platelet Volume 6.5; Monocytes # (A) 0.7 k/uL (0-1.0); Monocytes % (A) 5 %; Neutrophils # (A) 11.1 k/uL (1.3-7.7); Neutrophils % (A) 77 %; RBC 6.52 m/uL (4.30-5.90); RDW 14.3 % (11.5-15.5); WBC 14.5 k/uL (3.8-10.6); WBC (Perox) 14.89
[2016-06-07] MEDS: PANTOPRAZOLE 40 MG TABLET PO SCH (06:44)
[2016-06-07 07:01] LABS: Anion Gap 13 mmol/L; Blood Urea Nitrogen 37 mg/dL (9-20); Calcium 9.9 mg/dL (8.4-10.2); Carbon Dioxide 25 mmol/L (22-30); Chloride 96 mmol/L (98-107); Glucose 129 mg/dL (74-99); Non-African American GFR(MDRD) >60 (>60 ml/min/1.73 sqM); Potassium 4.6 mmol/L (3.5-5.1); Sodium 134 mmol/L (137-145)
[2016-06-07] MEDS: ASPIRIN 81 MG CHEW PO SCH (08:01)
[2016-06-07] MEDS: HYDROCHLOROTHIAZIDE 25 MG TAB PO SCH (08:01)
[2016-06-07] MEDS: ATORVASTATIN 40 MG TAB PO SCH (08:01)
[2016-06-07] MEDS: METOPROLOL TARTRATE 50 MG TAB PO SCH ×3 (08:01→20:59)
[2016-06-07] MEDS: DILTIAZEM CD 240 MG CAP.ER.24H PO SCH (08:02)
[2016-06-07] MEDS: NICOTINE 21MG/24HR PATCH TRANSDERM SCH (08:02)
[2016-06-07] MEDS: HEPARIN SODIUM,PORCINE 5,000 UNIT/ML 1 ML VIAL SQ SCH ×2 (08:04→20:59)
[2016-06-07] MEDS: IPRATROPIUM-ALBUTEROL 3 ML NEB IH SCH ×4 (08:35→19:22)
--- NOTE | 2016-06-07 09:27 | XR ---
EXAMINATION TYPE: XR chest 1V portable DATE OF EXAM: 06/07/2016 8:59 AM CLINICAL HISTORY: Difficulty breathing and pneumothorax progress study. History of lung cancer. TECHNIQUE: Single AP portable upright view of the chest is obtained. COMPARISON: Chest x-ray from one day earlier FINDINGS: Right-sided chest tube is redemonstrated. Extensive subcutaneous emphysema over right ches t extending to left chest is again seen. This makes evaluation for pneumothorax suboptimal. There is small right apical pneumothorax estimated 10% felt stable. There is mediastinal shift to the right wi th right hilar surgical clips consistent with partial pneumonectomy changes redemonstrated. Left lung remains clear. Cardiac silhouette size is stable and within normal limits. Osseous structures are in tact. IMPRESSION: Overall stable findings, small right apical pneumothorax estimated 10% with chest tube placed. Overlying subcutaneous emphysema redemonstrated felt stable. Postsurgical changes right lung noted.
--- NOTE | 2016-06-07 15:51 | P.PN ---
Subjective Principal diagnosis: Squamous cell carcinoma of the right lung, status post right lower lobectomy and right middle lobectomy postoperative day # 11 This is a pleasant 71-year-old gentleman who was recently diagnosed with squamous cell carcinoma. He is now status post right middle and right lower lobectomies performed by Dr. Negron on 05/27/2016. He is seen again today in follow-up on the selective care unit. He remains awake and alert in no acute distress. Today's chest x-ray shows persistent extensive subcutaneous emphysema and a now moderate right upper lobe pneumothorax. The chest tube is in place. He was placed back on suction. Currently, he is resting fairly comfortably in bed. He denies any worsening shortness of breath, cough or congestion. He is maintaining good O2 saturations up to 100% on room air. He' s been afebrile. His right-sided chest discomfort is fairly well controlled. The patient is seen again today in follow-up on 05/31/2016 on the selective care unit. He is currently awake and alert in no acute distress. He states his breathing is somewhat easier today as compared to yesterday. He continues to work with his incentive spirometer. His chest tube remains in place. There is still an air leak. His chest x-ray does not show any significant pneumothorax. He is maintaining good O2 saturations in the upper 90s on room air. He remains afebrile. On , the patient is doing well. He still having a high requirement for pain medication. He is however, comfortable. He is resting comfortably in bed. He has a right-sided chest tube. No evidence of any air leak. The output from the chest tube was noted. Today chest x-ray shows no significant right-sided pneumothorax. Based on cardiothoracic surgery recommendations the chest tube was placed to waterseal. The patient is on room air oxygen. Tolerating diet. No nausea. No vomiting. No pleurisy. He is seen again today on the selective care unit 06/02/2016. He has been up ambulating with assistance from physical therapy. He denies any worsening shortness of breath. He remains with a dry nonproductive cough. His chest tube remains in place. There is intermittent leak. He is maintaining good O2 saturations in the mid 90s on room air. He is afebrile. His pain is well controlled. On 06/03/2016 the patient is being seen in follow-up. He still has a right- sided chest tube. Airleak is still present although less compared to yesterday. Today chest x-ray shows a very tiny right apical pneumothorax. The patient is quite weak. Nevertheless is able to move around with help and ambulate. Appetite is still poor. No chest pain. No nausea. No vomiting. No abdominal pain. No change in mental status. The patient postoperative findings showed a large 6.5 and to meet her mass, consistent with squamous cell carcinoma, and there is involvement of the pleural surface, and this is considered to be T2b, N0 and M0 lesion. On 06/04/2016, the patient has a large right-sided pneumothorax. The right- sided chest tube is in good location and there is a significant amount of air leak noted on today's evaluation. The patient also has subclinical his emphysema along the right chest laterally and anteriorly extending to his neck. The patient is having some skeletal chest wall pain along the right chest area. The patient however is calm and comfortable. No significant respiratory distress. He is taking [place] for pain control. Hemodynamically stable. No other complaints otherwise for now. He is weak. Oral intake is low and the patient is not meeting his caloric requirements. Note that the patient has a T2 N0 M0 disease, squamous cell lung cancer. On 06/05/2016, the patient is stable. He still has a large wide-open air leak to the chest tube. The pneumothorax on the right side of the lung has improved and sized. It still present occupying probably around 15-20% of the right hemithorax. The patient also has subcutaneous emphysema along the right lateral chest and anterior chest area. Pain is under good control. He is using incentive spirometer. Discussed the case with the surgeon. There may be ultimately possibility of taking this patient back to the operating room to repair The air leak On 06/06/2016, patient continues to have chest tube in place, continues to have airleak, minimal apical pneumothorax is noted, much smaller compared to the last few days. Clinically the patient is doing well, no cough no wheezing no shortness of breath. Minimal subcu emphysema is noted. Chest x-ray was reviewed. On 06/07/2016, patient continues to have tube in place, continues to have airleak , continues to have a small apical right sided pneumothorax, and significant subcu emphysema on the right chest. Clinically however the patient is stable, denies any shortness of breath, no cough, no wheezing, and no chest pain. All labs were reviewed. Objective - Vital Signs Vital signs: Vital Signs Temp 97.2 F L 06/07/16 03:25 Pulse 80 06/07/16 15:15 Resp 18 06/07/16 12:00 BP 135/71 06/07/16 12:00 Pulse Ox 97 06/07/16 12:00 Intake & Output 06/06/16 06/07/16 06/07/16 18:59 06:59 18:59 Intake Total 337 180 Output Total 900 575 250 Balance -563 -575 -70 Weight 55.3 kg Intake: Oral 337 180 Output: Drainage 250 75 Right Lower Chest 250 75 Urine 650 500 250 Other: # Voids 1 2 - Exam Head exam was generally normal. There was no scleral icterus or corneal arcus. Mucous membranes were moist.Neck was supple and without jugular venous distension, thyromegaly, or carotid bruits. Carotids were easily palpable bilaterally. There was no adenopathy.lung sounds are diminished on the right compared to the left. The patient has a right-sided chest tube also in place. The patient has diminished breath sound in the right compared to the left. The patient also has subcutaneous emphysema along the right lateral anterior chest extending to his neck. Cardiac exam revealed the PMI to be normally situated and sized. The rhythm was regular and no extrasystoles were noted during several minutes of auscultation. The first and second heart sounds were normal and physiologic splitting of the second heart sound was noted. There were no murmurs, rubs, clicks, or gallops.Abdominal exam revealed normal bowel sounds. The abdomen was soft, non-tender, and without masses, organomegaly, or appreciable enlargement of the abdominal aorta.Examination of the extremities revealed easily palpable radial, femoral and pedal pulses. There was no cyanosis , clubbing or edema. - Labs CBC & Chem 7: 06/07/16 05:53 06/07/16 05:53 Labs: Abnormal Lab Results - Last 24 Hours (Table) 06/07/16 06/07/16 Range/Units 05:53 05:53 WBC 14.5 H (3.8-10.6) k/uL RBC 6.52 H (4.30-5.90) m/uL Hgb 18.0 H (13.0-17.5) gm/dL Hct 55.8 H (39.0-53.0) % Plt Count 576 H (150-450) k/uL Neutrophils # 11.1 H (1.3-7.7) k/uL Sodium 134 L (137-145) mmol/L Chloride 96 L (98-107) mmol/L BUN 37 H (9-20) mg/dL Glucose 129 H (74-99) mg/dL Assessment and Plan Plan: #1 Squamous cell carcinoma. Status post right middle and right lower lobectomy , postoperative day #11. The patient has T2B, N0, M0 disease. #2 persistent air leak with a fair sized pneumothorax involving the right lung. The right-sided chest tube is in good location. Suspect leak from the suture line. There is improvement in the size of the pneumothorax on the right. There is quite extensive air leak that is ongoing through the chest tube and the patient has still a 50-20% pneumothorax on the right. In addition, the patient has subcu emphysema #3 Chronic and ongoing tobacco dependence. #4 Hypertension. #5 Gastroesophageal reflux fluid disease. #6 chest wall pain secondary to above #7 history of smoking Recommendation: Continue wall suction, patient may require eventually a chest tube with a Heimlich valve, and eventual discharge home. Scuffs his condition with the surgeon on the case. Time with Patient: Less than 30
--- NOTE | 2016-06-07 15:59 | P.PN ---
Subjective Principal diagnosis: Non-small cell carcinoma right lower lobe of the lung POD #11 right thoracotomy, right lower and middle lobectomy, mediastinal lymph node dissection, cryoablation of intercostal nerves IV through VIII Patient currently sitting up in chair in no apparent distress. No new questions or concerns at this time. Air leak in right chest tube still present , suctioned remains at -20 cm. Objective - Vital Signs Vital signs: Vital Signs Temp 97.2 F L 06/07/16 03:25 Pulse 80 06/07/16 15:15 Resp 18 06/07/16 12:00 BP 135/71 06/07/16 12:00 Pulse Ox 97 06/07/16 12:00 Intake & Output 06/06/16 06/07/16 06/07/16 18:59 06:59 18:59 Intake Total 337 180 Output Total 900 575 250 Balance -563 -575 -70 Weight 55.3 kg Intake: Oral 337 180 Output: Drainage 250 75 Right Lower Chest 250 75 Urine 650 500 250 Other: # Voids 1 2 - Constitutional General appearance: Present: cooperative, no acute distress - Respiratory Details: Lungs sounds diminished bilaterally. Respirations even, nonlabored. Currently rating remains on room air. Right pleural chest tube to -20 cm wall suction with minimal serous output. Air leak still present but resolving. - Cardiovascular Details: S1, S2 present. Regular rate and rhythm, normal sinus rhythm on telemetry. - Gastrointestinal Gastrointestinal Comment(s): Abdomen soft, nontender, nondistended. Active bowel sounds 4 quadrants. Tolerating diet. - Genitourinary Genitourinary Comment(s): Continues to void clear, yellow urine per urinal. - Musculoskeletal Musculoskeletal: Present: strength equal bilaterally - Psychiatric Psychiatric: Present: A&O x's 3, appropriate affect, intact judgment & insight - Allied health notes Allied health notes reviewed: nursing - Labs CBC & Chem 7: 06/07/16 05:53 06/07/16 05:53 Labs: Abnormal Lab Results - Last 24 Hours (Table) 06/07/16 06/07/16 Range/Units 05:53 05:53 WBC 14.5 H (3.8-10.6) k/uL RBC 6.52 H (4.30-5.90) m/uL Hgb 18.0 H (13.0-17.5) gm/dL Hct 55.8 H (39.0-53.0) % Plt Count 576 H (150-450) k/uL Neutrophils # 11.1 H (1.3-7.7) k/uL Sodium 134 L (137-145) mmol/L Chloride 96 L (98-107) mmol/L BUN 37 H (9-20) mg/dL Glucose 129 H (74-99) mg/dL - Imaging and Cardiology Chest x-ray: report reviewed, image reviewed Assessment and Plan (1) Non-small cell carcinoma of right lung Status: Acute Plan: 1. Encourage patient to be out of bed all day. Increase activity in his room, physical therapy following. 2. Encourage incentive spirometry use. 3. Will place chest tube to water seal in the morning. Pathology results report squamous cell carcinoma. 4. Pain management with ordered medication regimen. 5. Comorbid medical problems to be managed by internal medicine service. 6. Discharge planning in progress, patient will need to go to a facility upon discharge 7. More recommendations as patient progresses. Time with Patient: Greater than 30
--- NOTE | 2016-06-07 23:17 | PN ---
SUBJECTIVE DATA/INTERVAL HISTORY: This is postop day 11 from a right middle and lower lobectomy with a diagnosis of squamous cell cancer. The patient has had a prolonged hospitalization due to persistent air leak and ( ) emphysema on the right side. Patient is restarted on wall suction with a right-sided chest tube. Emphysema appears to be stable. Today's chest x-ray reveals less than 10% of pneumothorax. Patient states that he is doing well. Denies having any headaches, blurry vision, difficulty in breathing, chest pain. He does complain of some discomfort at the site of chest tube insertion. No abdominal pain, urinary frequency, urgency or change in bowel habits. PHYSICAL EXAM TODAY: Temperature is 97.2, heart rate is 80, respiratory rate 18, blood pressure 135/71. Saturating 97% on room air. GENERAL APPEARANCE: Alert, oriented x3. Does not appear to be in distress. HEAD: Atraumatic, normocephalic. Pupils are equal, round and reactive to light and accommodation. CHEST WALL: Right-sided subcu emphysema could be palpated up to clavicular region along the 2nd intercostal space. A right-sided chest tube is noted in the posterior axillary line. Diminished breath sounds on the right. Air movement is appreciated on the left. No rhonchi, wheezing or crackles. HEART: S1, S2 heard. No murmurs appreciated. ABDOMEN: Soft, nontender. No organomegaly. LOWER EXTREMITIES: No significant edema noted. NEUROLOGIC: No focal motor or sensory deficits noted. LABORATORY DATA: Hemoglobin is 18, hematocrit 55.8, white count of 14.5, platelets of 576. Sodium 134, potassium 4.6, chloride 96, bicarb 25, BUN 37, creatinine of 1.10. ASSESSMENT AND PLAN: 1. Squamous cell carcinoma, status post right-sided right middle and lower lobectomy. 2. Persistent air leak. Continue wall suction. 3. Ongoing tobacco dependence with underlying chronic obstructive pulmonary disease. Hypertension. 4. Gastroesophageal reflux disease. 5. Thrombocytosis. 6. Erythrocytosis. This is likely secondary to dehydration. PLAN: Continue ongoing care. Continue chest tube management per Cardiothoracic Surgery. Erythrocytosis is likely secondary to decreased plasma volume; however, will continue monitoring. There is no need for further workup.
[2016-06-08] MEDS: MORPHINE SULFATE 4 MG/ML SYRINGE IVP PRN ×4 (00:56→16:37)
[2016-06-08] MEDS: PANTOPRAZOLE 40 MG TABLET PO SCH (06:33)
[2016-06-08 06:58] LABS: Basophils # (A) 0.1 k/uL (0-0.2); Basophils % (A) 0 %; CH 28.8; CHCM 33.5; Eosinophils # (A) 0.7 k/uL (0-0.7); Eosinophils % (A) 6 %; HCT 52.7 % (39.0-53.0); HDW 2.95; HGB 17.2 gm/dL (13.0-17.5); Luc # (Auto) 0.15; Luc % (Auto) 1; Lymphocytes # (A) 1.4 k/uL (1.0-4.8); Lymphocytes % (A) 12 %; MCH 28.3 pg (25.0-35.0); MCHC 32.7 g/dL (31.0-37.0); MCV 86.4 fL (80.0-100.0); Mean Platelet Volume 6.9; Monocytes # (A) 0.8 k/uL (0-1.0); Monocytes % (A) 6 %; Neutrophils # (A) 9.1 k/uL (1.3-7.7); Neutrophils % (A) 75 %; RDW 14.3 % (11.5-15.5); WBC 12.3 k/uL (3.8-10.6); WBC (Perox) 12.67
[2016-06-08 07:09] LABS: Anion Gap 12 mmol/L; Calcium 9.4 mg/dL (8.4-10.2); Carbon Dioxide 29 mmol/L (22-30); Chloride 94 mmol/L (98-107); Glucose 118 mg/dL (74-99); Non-African American GFR(MDRD) >60 (>60 ml/min/1.73 sqM); Sodium 135 mmol/L (137-145)
[2016-06-08 07:10] LABS: Potassium 4.5 mmol/L (3.5-5.1)
[2016-06-08 07:11] LABS: Blood Urea Nitrogen 40 mg/dL (9-20)
[2016-06-08] MEDS: IPRATROPIUM-ALBUTEROL 3 ML NEB IH SCH ×4 (07:26→21:13)
--- NOTE | 2016-06-08 08:14 | XR ---
EXAMINATION TYPE: XR chest 1V portable DATE OF EXAM: 06/08/2016 7:20 AM Comparison: 06/07/2016 Clinical History: 71-year-old male follow-up pneumothorax Findings: Heart is normal size. Aorta mildly tortuous. A right-sided chest tube remains in place. The tip is ap ically directed abutting the mediastinum at the upper to mid chest level. Patient's pneumothorax has markedly enlarged in the interval. Status post partial pneumonectomy. The remaining is balled up into the infrahilar region measuring only 10 cm craniocaudal. The right hemidiaphragm is pushed slightly lower and the cardiomediastinum has been brought back to the midline. Left lung and pleural space are clear. Extensive subcutaneous emphysema again noted. Impression: Interval marked enlargement of the patient's right-sided pneumothorax with the residual lobe now darrell apsed in the right infrahilar region. Chest tube remains in place. There is some downward displacemen t of the right hemidiaphragm as compared to prior exam and the cardiomediastinum has been brought elba k to the midline. The patient should be monitored for potential developing tension pneumothorax. Anay adams called to nurse Rere in 6- at 8:10am.
[2016-06-08] MEDS: NICOTINE 21MG/24HR PATCH TRANSDERM SCH (09:20)
[2016-06-08] MEDS: METOPROLOL TARTRATE 50 MG TAB PO SCH ×3 (09:20→23:57)
[2016-06-08] MEDS: ASPIRIN 81 MG CHEW PO SCH (09:20)
[2016-06-08] MEDS: DILTIAZEM CD 240 MG CAP.ER.24H PO SCH (09:20)
[2016-06-08] MEDS: ATORVASTATIN 40 MG TAB PO SCH (09:20)
[2016-06-08] MEDS: HYDROCHLOROTHIAZIDE 25 MG TAB PO SCH (09:21)
[2016-06-08] MEDS: HEPARIN SODIUM,PORCINE 5,000 UNIT/ML 1 ML VIAL SQ SCH ×2 (09:34→20:07)
--- NOTE | 2016-06-08 13:40 | P.PN ---
Subjective Principal diagnosis: Squamous cell carcinoma of the right lung, status post right lower lobectomy and right middle lobectomy postoperative day # 12 This is a pleasant 71-year-old gentleman who was recently diagnosed with squamous cell carcinoma. He is now status post right middle and right lower lobectomies performed by Dr. Negron on 05/27/2016. He is seen again today in follow-up on the selective care unit. He remains awake and alert in no acute distress. Today's chest x-ray shows persistent extensive subcutaneous emphysema and a now moderate right upper lobe pneumothorax. The chest tube is in place. He was placed back on suction. Currently, he is resting fairly comfortably in bed. He denies any worsening shortness of breath, cough or congestion. He is maintaining good O2 saturations up to 100% on room air. He' s been afebrile. His right-sided chest discomfort is fairly well controlled. The patient is seen again today in follow-up on 05/31/2016 on the selective care unit. He is currently awake and alert in no acute distress. He states his breathing is somewhat easier today as compared to yesterday. He continues to work with his incentive spirometer. His chest tube remains in place. There is still an air leak. His chest x-ray does not show any significant pneumothorax. He is maintaining good O2 saturations in the upper 90s on room air. He remains afebrile. On , the patient is doing well. He still having a high requirement for pain medication. He is however, comfortable. He is resting comfortably in bed. He has a right-sided chest tube. No evidence of any air leak. The output from the chest tube was noted. Today chest x-ray shows no significant right-sided pneumothorax. Based on cardiothoracic surgery recommendations the chest tube was placed to waterseal. The patient is on room air oxygen. Tolerating diet. No nausea. No vomiting. No pleurisy. He is seen again today on the selective care unit 06/02/2016. He has been up ambulating with assistance from physical therapy. He denies any worsening shortness of breath. He remains with a dry nonproductive cough. His chest tube remains in place. There is intermittent leak. He is maintaining good O2 saturations in the mid 90s on room air. He is afebrile. His pain is well controlled. On 06/03/2016 the patient is being seen in follow-up. He still has a right- sided chest tube. Airleak is still present although less compared to yesterday. Today chest x-ray shows a very tiny right apical pneumothorax. The patient is quite weak. Nevertheless is able to move around with help and ambulate. Appetite is still poor. No chest pain. No nausea. No vomiting. No abdominal pain. No change in mental status. The patient postoperative findings showed a large 6.5 and to meet her mass, consistent with squamous cell carcinoma, and there is involvement of the pleural surface, and this is considered to be T2b, N0 and M0 lesion. On 06/04/2016, the patient has a large right-sided pneumothorax. The right- sided chest tube is in good location and there is a significant amount of air leak noted on today's evaluation. The patient also has subclinical his emphysema along the right chest laterally and anteriorly extending to his neck. The patient is having some skeletal chest wall pain along the right chest area. The patient however is calm and comfortable. No significant respiratory distress. He is taking Robinson for pain control. Hemodynamically stable. No other complaints otherwise for now. He is weak. Oral intake is low and the patient is not meeting his caloric requirements. Note that the patient has a T2 N0 M0 disease, squamous cell lung cancer. On 06/05/2016, the patient is stable. He still has a large wide-open air leak to the chest tube. The pneumothorax on the right side of the lung has improved and sized. It still present occupying probably around 15-20% of the right hemithorax. The patient also has subcutaneous emphysema along the right lateral chest and anterior chest area. Pain is under good control. He is using incentive spirometer. Discussed the case with the surgeon. There may be ultimately possibility of taking this patient back to the operating room to repair The air leak On 06/06/2016, patient continues to have chest tube in place, continues to have airleak, minimal apical pneumothorax is noted, much smaller compared to the last few days. Clinically the patient is doing well, no cough no wheezing no shortness of breath. Minimal subcu emphysema is noted. Chest x-ray was reviewed. On 06/07/2016, patient continues to have tube in place, continues to have airleak , continues to have a small apical right sided pneumothorax, and significant subcu emphysema on the right chest. Clinically however the patient is stable, denies any shortness of breath, no cough, no wheezing, and no chest pain. All labs were reviewed. On 06/08/2016, patient is about the same, when the chest tube was placed off suction overnight, his whole right lung collapse completely, patient is now back on wall suction. Denies any specific complaints, no cough no wheezing no shortness of breath no chest pain. Objective - Vital Signs Vital signs: Vital Signs Temp 98.9 F 06/08/16 08:00 Pulse 84 06/08/16 12:25 Resp 18 06/08/16 08:00 BP 112/68 06/08/16 12:00 Pulse Ox 95 06/08/16 08:00 Intake & Output 06/07/16 06/08/16 06/08/16 18:59 06:59 18:59 Intake Total 417 360 Output Total 650 550 100 Balance -233 -550 260 Weight 56.4 kg Intake: Oral 417 360 Output: Chest Tube Drainage 80 Chest Tube Right 80 Drainage 100 70 Right Lower Chest 100 70 Urine 550 400 100 - Exam Head exam was generally normal. There was no scleral icterus or corneal arcus. Mucous membranes were moist.Neck was supple and without jugular venous distension, thyromegaly, or carotid bruits. Carotids were easily palpable bilaterally. There was no adenopathy.lung sounds are diminished on the right compared to the left. The patient has a right-sided chest tube also in place. The patient has diminished breath sound in the right compared to the left. The patient also has subcutaneous emphysema along the right lateral anterior chest extending to his neck. Cardiac exam revealed the PMI to be normally situated and sized. The rhythm was regular and no extrasystoles were noted during several minutes of auscultation. The first and second heart sounds were normal and physiologic splitting of the second heart sound was noted. There were no murmurs, rubs, clicks, or gallops.Abdominal exam revealed normal bowel sounds. The abdomen was soft, non-tender, and without masses, organomegaly, or appreciable enlargement of the abdominal aorta.Examination of the extremities revealed easily palpable radial, femoral and pedal pulses. There was no cyanosis , clubbing or edema. - Labs CBC & Chem 7: 06/08/16 06:37 05/03/17 06:37 Labs: Abnormal Lab Results - Last 24 Hours (Table) 06/08/16 06/08/16 Range/Units 06:37 06:37 WBC 12.3 H (3.8-10.6) k/uL RBC 6.10 H (4.30-5.90) m/uL Plt Count 469 H (150-450) k/uL Neutrophils # 9.1 H (1.3-7.7) k/uL Sodium 135 L (137-145) mmol/L Chloride 94 L (98-107) mmol/L BUN 40 H (9-20) mg/dL Glucose 118 H (74-99) mg/dL Assessment and Plan Plan: #1 Squamous cell carcinoma. Status post right middle and right lower lobectomy , postoperative day # 12 The patient has T2B, N0, M0 disease. #2 persistent air leak with a fair sized pneumothorax involving the right lung. The right-sided chest tube is in good location. Suspect leak from the suture line. There is improvement in the size of the pneumothorax on the right. There is quite extensive air leak that is ongoing through the chest tube #3 Chronic and ongoing tobacco dependence. #4 Hypertension. #5 Gastroesophageal reflux fluid disease. #6 chest wall pain secondary to above #7 history of smoking Recommendation: Continue wall suction, patient may require eventually a chest tube with a Heimlich valve, and eventual discharge home. Not quite ready for discharge planning at this point. Time with Patient: Less than 30
--- NOTE | 2016-06-08 17:00 | P.PN ---
Progress Note - Text CV Surgery Nursing Principal diagnosis: Non-small cell carcinoma right lower lobe of the lung POD #12 right thoracotomy, right lower and middle lobectomy, mediastinal lymph node dissection, cryoablation of intercostal nerves IV through VIII Patient currently sitting up in chair in no apparent distress. No new questions or concerns at this time. Air leak in right chest tube still present , suctioned remains at -20 cm. Patient awake and alert, no distress noted, no specific complaints. He is sitting up to bedside chair. Vital Signs: Afebrile Vital Signs - 24 hr 06/07/16 06/07/16 06/07/16 19:22 19:33 20:00 Temperature 96.8 F L Pulse Rate 84 84 Pulse Rate [ Senior Sales Administrator ] Pulse Rate [ 64 Pulse Oximetery ] Respiratory 16 Rate Blood Pressure 139/68 [Left Arm] O2 Sat by Pulse 95 Oximetry 06/07/16 06/07/16 06/08/16 23:28 23:53 04:00 Temperature 97.3 F L Pulse Rate Pulse Rate [ Senior Sales Administrator ] Pulse Rate [ 85 85 73 Pulse Oximetery ] Respiratory 16 16 14 Rate Blood Pressure 115/73 134/78 [Left Arm] O2 Sat by Pulse 96 98 Oximetry 06/08/16 06/08/16 06/08/16 07:26 07:38 08:00 Temperature 98.9 F Pulse Rate 80 80 Pulse Rate [ Senior Sales Administrator ] Pulse Rate [ 90 Pulse Oximetery ] Respiratory 18 Rate Blood Pressure 111/81 [Left Arm] O2 Sat by Pulse 95 Oximetry 06/08/16 06/08/16 06/08/16 12:00 12:18 12:25 Temperature Pulse Rate 88 84 Pulse Rate [ Senior Sales Administrator ] Pulse Rate [ Pulse Oximetery ] Respiratory Rate Blood Pressure 112/68 [Left Arm] O2 Sat by Pulse Oximetry 06/08/16 06/08/16 06/08/16 15:15 15:30 16:00 Temperature 97.1 F L Pulse Rate 82 82 Pulse Rate [ 83 Senior Sales Administrator ] Pulse Rate [ 71 Pulse Oximetery ] Respiratory 16 16 Rate Blood Pressure 111/74 [Left Arm] O2 Sat by Pulse 96 Oximetry Labs: Short CBC 06/08/16 Range/Units 06:37 WBC 12.3 H (3.8-10.6) k/uL Hgb 17.2 (13.0-17.5) gm/dL Hct 52.7 (39.0-53.0) % Plt Count 469 H (150-450) k/uL Neutrophils # 9.1 H (1.3-7.7) k/uL BMP 06/08/16 06:37 Sodium 135 L Potassium 4.5 Chloride 94 L Carbon Dioxide 29 BUN 40 H Creatinine 1.02 Glucose 118 H Calcium 9.4 Lungs: Few scattered rhonchi throughout, diminished bilateral bases, right greater than left. Respirations are symmetrical and unlabored. Patient has positive subcutaneous emphysema to his upper chest and to his back. O2 sat: 96% on room air. I/S: 750 mL, reviewed with the patient important of using his incentive spirometry every hour while awake. Patient did give good return demonstration on his incentive spirometry. Heart: S1S2, regular rhythm and rate, positive systolic murmur. Remote telemetry showing normal sinus rhythm heart rate 82. Right lateral chest incision clean dry and well approximated. No drainage noted. Abdomen: Soft, Positive bowel sounds present in all 4 quadrants. U/O: Adequate, 320 mL output in the last 8 hours. Chest Tubes: Right pleural chest tube currently on waterseal, with positive continuous air leak. His x-ray off wall suction demonstrated a large right- sided pneumothorax. This chest tube were placed to low continuous wall suction. Continuous air leak noted. 70 mL output in the last 8 hours, 250 mL output in the last 24 hours. 24 hr Total: Intake & Output 06/06/16 06/07/16 06/08/16 06/09/16 06:59 06:59 06:59 06:59 Intake Total 120 337 417 360 Output Total 1150 1415 1200 100 Balance -1030 -2568 -783 260 Weight 55.3 kg 56.4 kg 56.4 kg Active Medications Hydrocodone Bitart/Acetaminophen ([place] 7.5-325) 1 each PO Q6H PRN PRN Reason: Moderate Pain Last Admin: 06/06/16 14:36 Dose: 1 each Albuterol/Ipratropium (Duoneb 0.5 Mg-3 Mg/3 Ml Soln) 3 ml IH RT-Q1H PRN PRN Reason: Shortness Of Breath Or Wheezing Albuterol/Ipratropium (Duoneb 0.5 Mg-3 Mg/3 Ml Soln) 3 ml IH RT-QID [facility] Last Admin: 06/08/16 15:15 Dose: 3 ml Aspirin (Aspirin) 81 mg PO DAILY [facility] Last Admin: 06/08/16 09:20 Dose: 81 mg Atorvastatin Calcium (Lipitor) 40 mg PO DAILY [facility] Last Admin: 06/08/16 09:20 Dose: 40 mg Bisacodyl (Dulcolax) 10 mg RECTAL DAILY PRN PRN Reason: Constipation Diltiazem HCl (Cardizem Cd) 240 mg PO DAILY [facility] Last Admin: 06/08/16 09:20 Dose: 240 mg Haloperidol Lactate (Haldol) 5 mg IM Q6HR PRN PRN Reason: Agitation or Acute Psychosis Last Admin: 05/28/16 04:45 Dose: 5 mg Heparin Sodium (Porcine) (Heparin) 5,000 unit SQ Q12HR [facility] Last Admin: 06/08/16 09:34 Dose: 5,000 unit Hydrochlorothiazide (Hydrodiuril) 25 mg PO DAILY [facility] Last Admin: 06/08/16 09:21 Dose: 25 mg Loratadine (Claritin) 5 mg PO Q12HR PRN PRN Reason: Allergy Symptoms Last Admin: 05/29/16 17:53 Dose: 5 mg Metoclopramide HCl (Reglan) 5 mg IVP Q4HR PRN PRN Reason: Nausea And Vomiting Metoprolol Tartrate (Lopressor) 50 mg PO TID [facility] Last Admin: 06/08/16 16:37 Dose: 50 mg Miscellaneous Information (Magnesium Per Protocol) 1 each MISCELLANE DAILY PRN ; Protocol PRN Reason: Per Protocol Miscellaneous Information (Potassium Per Protocol) 1 each MISCELLANE DAILY PRN ; Protocol PRN Reason: Per Protocol Miscellaneous Information (Magnesium Per Protocol) 1 each MISCELLANE DAILY PRN ; Protocol PRN Reason: Per Protocol Miscellaneous Information (Magnesium Per Protocol) 1 each MISCELLANE DAILY PRN ; Protocol PRN Reason: Per Protocol Morphine Sulfate (Morphine Sulfate (Inj)) 4 mg IVP Q4HR PRN PRN Reason: Pain Last Admin: 06/08/16 16:37 Dose: 4 mg Nicotine (Habitrol 21mg/24hr Patch) 1 patch TRANSDERM DAILY [facility] Last Admin: 06/08/16 09:20 Dose: 1 patch Nicotine Polacrilex (Nicorette Gum) 2 mg BUCCAL Q4HR PRN PRN Reason: Nicotine Cravings Ondansetron HCl (Zofran) 4 mg IVP Q8HR PRN PRN Reason: Nausea And Vomiting Last Admin: 06/04/16 16:23 Dose: 4 mg Pantoprazole Sodium (Protonix) 40 mg PO AC-BRKFST [facility] Last Admin: 06/08/16 06:33 Dose: 40 mg Plan: 1. Encourage patient to be out of bed all day. Increase activity in his room, physical therapy following. 2. Encourage incentive spirometry use at least every hour while awake. 3. Replace wall suction to chest tube and repeat portable chest x-ray in the a.m. Pathology results report squamous cell carcinoma. 4. Pain management with ordered medication regimen. 5. Comorbid medical problems to be managed by internal medicine service. 6. Discharge planning in progress, patient will need to go to a facility upon discharge 7. More recommendations as patient progresses.
[2016-06-08] MEDS: ONDANSETRON 4 MG/2 ML VIAL IVP PRN (20:06)
[2016-06-09] MEDS: HYDROcodone/APAP 7.5-325MG 1 EACH TAB PO PRN ×2 (00:12→10:12)
[2016-06-09] MEDS: MORPHINE SULFATE 4 MG/ML SYRINGE IVP PRN ×5 (00:35→21:37)
[2016-06-09 06:13] LABS: Basophils % (A) 0 %; CH 29.1; CHCM 35.1; Eosinophils # (A) 0.7 k/uL (0-0.7); Eosinophils % (A) 5 %; HDW 3.16; HGB 17.6 gm/dL (13.0-17.5); Luc # (Auto) 0.21; Luc % (Auto) 2; Lymphocytes # (A) 1.6 k/uL (1.0-4.8); Lymphocytes % (A) 12 %; MCH 28.8 pg (25.0-35.0); MCHC 34.5 g/dL (31.0-37.0); MCV 83.4 fL (80.0-100.0); Mean Platelet Volume 6.9; Monocytes # (A) 0.6 k/uL (0-1.0); Monocytes % (A) 5 %; Neutrophils # (A) 10.3 k/uL (1.3-7.7); Neutrophils % (A) 76 %; RBC 6.12 m/uL (4.30-5.90); RDW 14.2 % (11.5-15.5); WBC 13.5 k/uL (3.8-10.6)
[2016-06-09 06:35] LABS: Anion Gap 12 mmol/L; Blood Urea Nitrogen 41 mg/dL (9-20); Calcium 9.5 mg/dL (8.4-10.2); Carbon Dioxide 27 mmol/L (22-30); Chloride 94 mmol/L (98-107); Glucose 112 mg/dL (74-99); Non-African American GFR(MDRD) >60 (>60 ml/min/1.73 sqM); Potassium 4.2 mmol/L (3.5-5.1); Sodium 133 mmol/L (137-145)
[2016-06-09] MEDS: ONDANSETRON 4 MG/2 ML VIAL IVP PRN (06:53)
[2016-06-09] MEDS: PANTOPRAZOLE 40 MG TABLET PO SCH (07:01)
--- NOTE | 2016-06-09 07:49 | XR ---
EXAMINATION TYPE: XR chest 1V portable DATE OF EXAM: 06/09/2016 7:37 AM HISTORY: Follow-up pneumothorax COMPARISON: 06/08/2016 TECHNIQUE: Single view of the chest is submitted. FINDINGS: The right-sided chest tube is unchanged in position. There is been marked improvement in right-sided pneumothorax with persistent pneumothorax now estimated at 15-20%. Subcutaneous emphysema persists al tawana the right lateral chest wall. There is a hyperinflation of the left lung. Demonstrated are scattered senescent parenchymal change. There is no evidence for focal infiltrate. The heart is stable. Hilar and mediastinal structures are within normal limits. Degenerative changes are seen of the dorsal spine. IMPRESSION: 1. Marked improvement in previously noted right-sided pneumothorax with persistent 15-20% component.
[2016-06-09] MEDS: IPRATROPIUM-ALBUTEROL 3 ML NEB IH SCH ×4 (08:42→19:41)
[2016-06-09] MEDS: DILTIAZEM CD 240 MG CAP.ER.24H PO SCH (10:08)
[2016-06-09] MEDS: METOPROLOL TARTRATE 50 MG TAB PO SCH ×3 (10:08→21:36)
[2016-06-09] MEDS: NICOTINE 21MG/24HR PATCH TRANSDERM SCH (10:08)
[2016-06-09] MEDS: HYDROCHLOROTHIAZIDE 25 MG TAB PO SCH (10:09)
[2016-06-09] MEDS: HEPARIN SODIUM,PORCINE 5,000 UNIT/ML 1 ML VIAL SQ SCH ×2 (10:09→21:36)
[2016-06-09] MEDS: ASPIRIN 81 MG CHEW PO SCH (10:10)
[2016-06-09] MEDS: ATORVASTATIN 40 MG TAB PO SCH (10:10)
--- NOTE | 2016-06-09 10:28 | P.PN ---
Progress Note - Text CV Surgery Nursing Principal diagnosis: Non-small cell carcinoma right lower lobe of the lung POD #13 right thoracotomy, right lower and middle lobectomy, mediastinal lymph node dissection, cryoablation of intercostal nerves IV through VIII Patient currently sitting up in chair in no apparent distress. No new questions or concerns at this time. Air leak in right chest tube still present , suctioned remains at continuous low -20 cm. Patient awake and alert, no distress noted, no specific complaints. He is sitting up to bedside chair. Vital Signs: Afebrile Vital Signs - 24 hr 06/08/16 06/08/16 06/08/16 12:00 12:18 12:25 Temperature Pulse Rate 88 84 Pulse Rate [ Switch Technician ] Pulse Rate [ Pulse Oximetery ] Respiratory Rate Blood Pressure 112/68 [Left Arm] O2 Sat by Pulse Oximetry 06/08/16 06/08/16 06/08/16 15:15 15:30 16:00 Temperature 97.1 F L Pulse Rate 82 82 Pulse Rate [ 83 Switch Technician ] Pulse Rate [ 71 Pulse Oximetery ] Respiratory 16 16 Rate Blood Pressure 111/74 [Left Arm] O2 Sat by Pulse 96 Oximetry 06/08/16 06/09/16 06/09/16 20:00 00:00 04:00 Temperature 95.9 F L 97.7 F 98.3 F Pulse Rate Pulse Rate [ Switch Technician ] Pulse Rate [ 75 75 75 Pulse Oximetery ] Respiratory 18 17 18 Rate Blood Pressure 100/58 121/72 120/73 [Left Arm] O2 Sat by Pulse 92 L 100 98 Oximetry 06/09/16 06/09/16 08:42 08:53 Temperature Pulse Rate 88 88 Pulse Rate [ Switch Technician ] Pulse Rate [ Pulse Oximetery ] Respiratory Rate Blood Pressure [Left Arm] O2 Sat by Pulse Oximetry Labs: Short CBC 06/09/16 Range/Units 05:34 WBC 13.5 H (3.8-10.6) k/uL Hgb 17.6 H (13.0-17.5) gm/dL Hct 51.0 (39.0-53.0) % Plt Count 467 H (150-450) k/uL Neutrophils # 10.3 H (1.3-7.7) k/uL BMP 06/09/16 05:34 Sodium 133 L Potassium 4.2 Chloride 94 L Carbon Dioxide 27 BUN 41 H Creatinine 1.10 Glucose 112 H Calcium 9.5 Lungs: Few scattered rhonchi throughout, diminished to bilateral bases right greater than left. Respirations are symmetrical and unlabored. He has some subcu emphysema and to his right chest. O2 sat: 98% on room air. I/S: 750 mL, reviewed with the patient important of using his incentive spirometry every hour while awake. The patient did give good return demonstration on his incentive spirometry but does need encouragement to use it. Heart: S1S2, regular rhythm and rate, positive systolic murmur. Remote telemetry showing normal sinus rhythm heart rate 85. Right chest incision clean dry and well approximated. No drainage noted. Dressing remains dry and intact. Knee-high PROSPER hose and sequential compression devices in place to his bilateral lower extremities. Abdomen: Soft, Positive bowel sounds present in all 4 quadrants. U/O: Adequate Chest Tubes: Right pleural chest tube with positive air leak. His chest tube remains to continuous wall low suction. It is draining thin serosanguineous drainage. 200 mL output in the last 8 hours, 300 mL output in the last 24 hours. 24 hr Total: Intake & Output 06/07/16 06/08/16 06/09/16 06/10/16 06:59 06:59 06:59 06:59 Intake Total 337 417 400 30 Output Total 1415 1200 400 375 Balance -1078 -783 0 -345 Weight 55.3 kg 56.4 kg 55.2 kg Active Medications Hydrocodone Bitart/Acetaminophen ([place]isco 7.5-325) 1 each PO Q6H PRN PRN Reason: Moderate Pain Last Admin: 06/09/16 10:12 Dose: 1 each Albuterol/Ipratropium (Duoneb 0.5 Mg-3 Mg/3 Ml Soln) 3 ml IH RT-Q1H PRN PRN Reason: Shortness Of Breath Or Wheezing Albuterol/Ipratropium (Duoneb 0.5 Mg-3 Mg/3 Ml Soln) 3 ml IH RT-QID [facility] Last Admin: 06/09/16 08:42 Dose: 3 ml Aspirin (Aspirin) 81 mg PO DAILY [facility] Last Admin: 06/09/16 10:10 Dose: 81 mg Atorvastatin Calcium (Lipitor) 40 mg PO DAILY [facility] Last Admin: 06/09/16 10:10 Dose: 40 mg Bisacodyl (Dulcolax) 10 mg RECTAL DAILY PRN PRN Reason: Constipation Diltiazem HCl (Cardizem Cd) 240 mg PO DAILY [facility] Last Admin: 06/09/16 10:08 Dose: 240 mg Haloperidol Lactate (Haldol) 5 mg IM Q6HR PRN PRN Reason: Agitation or Acute Psychosis Last Admin: 05/28/16 04:45 Dose: 5 mg Heparin Sodium (Porcine) (Heparin) 5,000 unit SQ Q12HR [facility] Last Admin: 06/09/16 10:09 Dose: 5,000 unit Hydrochlorothiazide (Hydrodiuril) 25 mg PO DAILY [facility] Last Admin: 06/09/16 10:09 Dose: 25 mg Loratadine (Claritin) 5 mg PO Q12HR PRN PRN Reason: Allergy Symptoms Last Admin: 05/29/16 17:53 Dose: 5 mg Metoclopramide HCl (Reglan) 5 mg IVP Q4HR PRN PRN Reason: Nausea And Vomiting Metoprolol Tartrate (Lopressor) 50 mg PO TID [facility] Last Admin: 06/09/16 10:08 Dose: 50 mg Miscellaneous Information (Magnesium Per Protocol) 1 each MISCELLANE DAILY PRN ; Protocol PRN Reason: Per Protocol Miscellaneous Information (Potassium Per Protocol) 1 each MISCELLANE DAILY PRN ; Protocol PRN Reason: Per Protocol Miscellaneous Information (Magnesium Per Protocol) 1 each MISCELLANE DAILY PRN ; Protocol PRN Reason: Per Protocol Miscellaneous Information (Magnesium Per Protocol) 1 each MISCELLANE DAILY PRN ; Protocol PRN Reason: Per Protocol Morphine Sulfate (Morphine Sulfate (Inj)) 4 mg IVP Q4HR PRN PRN Reason: Pain Last Admin: 06/09/16 06:54 Dose: 4 mg Nicotine (Habitrol 21mg/24hr Patch) 1 patch TRANSDERM DAILY [facility] Last Admin: 06/09/16 10:08 Dose: 1 patch Nicotine Polacrilex (Nicorette Gum) 2 mg BUCCAL Q4HR PRN PRN Reason: Nicotine Cravings Ondansetron HCl (Zofran) 4 mg IVP Q8HR PRN PRN Reason: Nausea And Vomiting Last Admin: 06/09/16 06:53 Dose: 4 mg Pantoprazole Sodium (Protonix) 40 mg PO AC-BRKFST [facility] Last Admin: 06/09/16 07:01 Dose: Not Given Plan: 1. Encourage patient to be out of bed all day. Increase activity in his room, physical therapy following. 2. Encourage incentive spirometry use at least every hour while awake. 3. Repeat portable chest x-ray in the a.m. Pathology results report squamous cell carcinoma. His chest tube remained to low continuous wall suction at this time. 4. Pain management per when necessary orders. 5. Comorbid medical problems to be managed by internal medicine service. 6. Discharge planning in progress, patient will need to go to a facility upon discharge 7. More recommendations as patient progresses.
--- NOTE | 2016-06-09 13:04 | P.PN ---
Subjective Principal diagnosis: Squamous cell carcinoma of the right lung, status post right lower lobectomy and right middle lobectomy postoperative day # 13 This is a pleasant 71-year-old gentleman who was recently diagnosed with squamous cell carcinoma. He is now status post right middle and right lower lobectomies performed by Dr. Negron on 05/27/2016. He is seen again today in follow-up on the selective care unit. He remains awake and alert in no acute distress. Today's chest x-ray shows persistent extensive subcutaneous emphysema and a now moderate right upper lobe pneumothorax. The chest tube is in place. He was placed back on suction. Currently, he is resting fairly comfortably in bed. He denies any worsening shortness of breath, cough or congestion. He is maintaining good O2 saturations up to 100% on room air. He' s been afebrile. His right-sided chest discomfort is fairly well controlled. The patient is seen again today in follow-up on 05/31/2016 on the selective care unit. He is currently awake and alert in no acute distress. He states his breathing is somewhat easier today as compared to yesterday. He continues to work with his incentive spirometer. His chest tube remains in place. There is still an air leak. His chest x-ray does not show any significant pneumothorax. He is maintaining good O2 saturations in the upper 90s on room air. He remains afebrile. On , the patient is doing well. He still having a high requirement for pain medication. He is however, comfortable. He is resting comfortably in bed. He has a right-sided chest tube. No evidence of any air leak. The output from the chest tube was noted. Today chest x-ray shows no significant right-sided pneumothorax. Based on cardiothoracic surgery recommendations the chest tube was placed to waterseal. The patient is on room air oxygen. Tolerating diet. No nausea. No vomiting. No pleurisy. He is seen again today on the selective care unit 06/02/2016. He has been up ambulating with assistance from physical therapy. He denies any worsening shortness of breath. He remains with a dry nonproductive cough. His chest tube remains in place. There is intermittent leak. He is maintaining good O2 saturations in the mid 90s on room air. He is afebrile. His pain is well controlled. On 06/03/2016 the patient is being seen in follow-up. He still has a right- sided chest tube. Airleak is still present although less compared to yesterday. Today chest x-ray shows a very tiny right apical pneumothorax. The patient is quite weak. Nevertheless is able to move around with help and ambulate. Appetite is still poor. No chest pain. No nausea. No vomiting. No abdominal pain. No change in mental status. The patient postoperative findings showed a large 6.5 and to meet her mass, consistent with squamous cell carcinoma, and there is involvement of the pleural surface, and this is considered to be T2b, N0 and M0 lesion. On 06/04/2016, the patient has a large right-sided pneumothorax. The right- sided chest tube is in good location and there is a significant amount of air leak noted on today's evaluation. The patient also has subclinical his emphysema along the right chest laterally and anteriorly extending to his neck. The patient is having some skeletal chest wall pain along the right chest area. The patient however is calm and comfortable. No significant respiratory distress. He is taking [place] for pain control. Hemodynamically stable. No other complaints otherwise for now. He is weak. Oral intake is low and the patient is not meeting his caloric requirements. Note that the patient has a T2 N0 M0 disease, squamous cell lung cancer. On 06/05/2016, the patient is stable. He still has a large wide-open air leak to the chest tube. The pneumothorax on the right side of the lung has improved and sized. It still present occupying probably around 15-20% of the right hemithorax. The patient also has subcutaneous emphysema along the right lateral chest and anterior chest area. Pain is under good control. He is using incentive spirometer. Discussed the case with the surgeon. There may be ultimately possibility of taking this patient back to the operating room to repair The air leak On 06/06/2016, patient continues to have chest tube in place, continues to have airleak, minimal apical pneumothorax is noted, much smaller compared to the last few days. Clinically the patient is doing well, no cough no wheezing no shortness of breath. Minimal subcu emphysema is noted. Chest x-ray was reviewed. On 06/07/2016, patient continues to have tube in place, continues to have airleak , continues to have a small apical right sided pneumothorax, and significant subcu emphysema on the right chest. Clinically however the patient is stable, denies any shortness of breath, no cough, no wheezing, and no chest pain. All labs were reviewed. On 06/08/2016, patient is about the same, when the chest tube was placed off suction overnight, his whole right lung collapse completely, patient is now back on wall suction. Denies any specific complaints, no cough no wheezing no shortness of breath no chest pain. 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 Patient continues to have a chest tube in place, chest x-ray today showed complete reexpansion of the right lung, continues to have an air leak. Chest tube remains on suction low -20 cm. Patient seems to be very comfortable and in no distress, relatively asymptomatic. Chest x-ray was reviewed. Objective - Vital Signs Vital signs: Vital Signs Temp 97.3 F L 06/09/16 12:00 Pulse 84 06/09/16 12:03 Resp 16 06/09/16 12:00 BP 114/75 06/09/16 12:00 Pulse Ox 93 L 06/09/16 12:00 Intake & Output 06/08/16 06/09/16 06/09/16 18:59 06:59 18:59 Intake Total 400 30 Output Total 200 200 375 Balance 200 -200 -345 Weight 56.4 kg 55.2 kg Intake: IV 30 NS 30 Oral 400 Output: Chest Tube Drainage 100 200 Chest Tube Right 100 200 Drainage 175 Right Lower Chest 175 Urine 100 200 Other: Voiding Method Urinal Urinal - Exam Physical Exam: Revealed a 71-year-old male in no form of respiratory distress. O2 sat is 98% on room air. HEENT:[Neck is supple.] [No neck masses.] [No thyromegaly.] [No JVD.] Chest: [Minimal crackles at the right base otherwise unremarkable and clear.] Right chest incision is clean and dry. Chest tube continues to have an leak and continues to have significant amount of drainage serosanguineous 200 mL in the last 8 hours. Cardiac Exam: [Normal S1 and S2, no S3 gallop, no murmur.] Abdomen: [Soft, nontender, no megaly, no rebound, no guarding, normal bowel sounds.] Extremities: [No clubbing, no edema, no cyanosis.] Neurological Exam: [No focal neurologic deficit.] - Labs CBC & Chem 7: 06/09/16 05:34 06/09/16 05:34 Labs: Abnormal Lab Results - Last 24 Hours (Table) 06/09/16 06/09/16 Range/Units 05:34 05:34 WBC 13.5 H (3.8-10.6) k/uL RBC 6.12 H (4.30-5.90) m/uL Hgb 17.6 H (13.0-17.5) gm/dL Plt Count 467 H (150-450) k/uL Neutrophils # 10.3 H (1.3-7.7) k/uL Sodium 133 L (137-145) mmol/L Chloride 94 L (98-107) mmol/L BUN 41 H (9-20) mg/dL Glucose 112 H (74-99) mg/dL Assessment and Plan Plan: #1 Squamous cell carcinoma. Status post right middle and right lower lobectomy , postoperative day # 13 The patient has T2B, N0, M0 disease. #2 persistent air leak The right-sided chest tube is in good location. Suspect leak from the suture line. There is quite extensive air leak that is ongoing through the chest tube #3 Chronic and ongoing tobacco dependence. #4 Hypertension. #5 Gastroesophageal reflux fluid disease. #6 chest wall pain secondary to above #7 history of smoking Recommendation: Continue wall suction, patient may require eventually a chest tube with a Heimlich valve, and eventual discharge home. Not quite ready for discharge planning at this point. Time with Patient: Less than 30
[2016-06-10] MEDS: PANTOPRAZOLE 40 MG TABLET PO SCH (06:31)
[2016-06-10] MEDS: MORPHINE SULFATE 4 MG/ML SYRINGE IVP PRN ×4 (06:31→20:27)
[2016-06-10 08:04] LABS: Anion Gap 17 mmol/L; Blood Urea Nitrogen 41 mg/dL (9-20); Calcium 10.1 mg/dL (8.4-10.2); Carbon Dioxide 19 mmol/L (22-30); Chloride 99 mmol/L (98-107); Glucose 110 mg/dL (74-99); Non-African American GFR(MDRD) >60 (>60 ml/min/1.73 sqM); Sodium 135 mmol/L (137-145)
[2016-06-10 08:07] LABS: Potassium 4.8 mmol/L (3.5-5.1)
--- NOTE | 2016-06-10 08:11 | XR ---
EXAMINATION TYPE: XR chest 1V portable DATE OF EXAM: 06/10/2016 7:24 AM HISTORY: pneumothorax. REFERENCE: Previous study dated 06/09/2016. FINDINGS: There is extensive subcutaneous emphysema on the right. The patient's right basilar pneumot horax has increased slightly in comparison with the previous study. There is mild atelectatic change in the right lung. The left lung is clear. Heart size is normal. There has been no interval change in the appearance of the patient's right-sided pleural drain. IMPRESSION: SLIGHT ENLARGEMENT IN THE PATIENT'S RIGHT BASILAR PNEUMOTHORAX.
[2016-06-10 08:24] LABS: Basophils # (A) 0.1 k/uL (0-0.2); Basophils % (A) 0 %; CH 29.3; CHCM 35.8; Eosinophils # (A) 0.6 k/uL (0-0.7); Eosinophils % (A) 4 %; HCT 51.8 % (39.0-53.0); HDW 3.17; HGB 18.3 gm/dL (13.0-17.5); Luc % (Auto) 2; Lymphocytes # (A) 1.7 k/uL (1.0-4.8); Lymphocytes % (A) 11 %; MCHC 35.3 g/dL (31.0-37.0); MCV 82.3 fL (80.0-100.0); Mean Platelet Volume 8.1; Monocytes # (A) 0.8 k/uL (0-1.0); Monocytes % (A) 5 %; Neutrophils # (A) 12.5 k/uL (1.3-7.7); Neutrophils % (A) 79 %; RDW 14.4 % (11.5-15.5); WBC (Perox) 15.55
[2016-06-10] MEDS: IPRATROPIUM-ALBUTEROL 3 ML NEB IH SCH ×4 (08:42→19:48)
[2016-06-10] MEDS: METOPROLOL TARTRATE 50 MG TAB PO SCH ×3 (10:19→21:58)
[2016-06-10] MEDS: HYDROCHLOROTHIAZIDE 25 MG TAB PO SCH (10:19)
[2016-06-10] MEDS: ASPIRIN 81 MG CHEW PO SCH (10:19)
[2016-06-10] MEDS: DILTIAZEM CD 240 MG CAP.ER.24H PO SCH (10:19)
[2016-06-10] MEDS: NICOTINE 21MG/24HR PATCH TRANSDERM SCH (10:19)
[2016-06-10] MEDS: HEPARIN SODIUM,PORCINE 5,000 UNIT/ML 1 ML VIAL SQ SCH ×2 (10:20→20:27)
[2016-06-10] MEDS: ATORVASTATIN 40 MG TAB PO SCH (10:20)
[2016-06-10] MEDS: HYDROcodone/APAP 7.5-325MG 1 EACH TAB PO PRN ×3 (10:29→21:57)
--- NOTE | 2016-06-10 10:37 | XR ---
EXAMINATION TYPE: XR chest 1V portable DATE OF EXAM: 06/10/2016 10:23 AM COMPARISON: 06/10/2016 at 7:14 AM HISTORY: Pneumothorax TECHNIQUE: Single frontal view of the chest is obtained. FINDINGS: Right-sided thoracostomy tube again terminates at the superior mediastinal border with dec reasing residual right basilar pneumothorax with approximately 2.8 cm in pleural separation. Elevatio n of the right hemidiaphragm is again a result of scattered right subsegmental atelectasis. The left lung is hyperinflated likely relating to underlying chronic COPD. Extensive subcutaneous emphysema is again noted over the right hemithorax. Cardiomegaly is no silhouette is within normal limits of size . IMPRESSION: 1. Decreasing right basilar pneumothorax with 2.8 cm pleural separation and unchanged right-sided tho racostomy tube. 2. Left pulmonary hyperinflation that may represent baseline COPD. 3. Extensive right hemithorax subcutaneous emphysema, unchanged.
--- NOTE | 2016-06-10 11:25 | P.PN ---
Subjective Principal diagnosis: Non-small cell carcinoma right lower lobe of the lung POD #13 right thoracotomy, right lower and middle lobectomy, mediastinal lymph node dissection, cryoablation of intercostal nerves IV through VIII Pt currently resting in bed in no apparent distress. No new questions or concerns. Objective - Vital Signs Vital signs: Vital Signs Temp 96.7 F L 06/10/16 04:00 Pulse 80 06/10/16 08:55 Resp 18 06/10/16 08:00 BP 97/64 06/10/16 08:00 Pulse Ox 94 L 06/10/16 08:00 Intake & Output 06/09/16 06/10/16 06/10/16 18:59 06:59 18:59 Intake Total 30 Output Total 465 230 430 Balance -435 -230 -430 Weight 54.8 kg Intake: IV 30 NS 30 Output: Chest Tube Drainage 290 130 30 Chest Tube Right 290 130 30 Drainage 175 Right Lower Chest 175 Urine 100 400 Other: Voiding Method Urinal # Voids 1 1 - Constitutional General appearance: Present: cooperative, no acute distress - Respiratory Details: Lung sounds diminished henrik. Resp even/non-labored. Remains on room air. Right pleural chest tube to -20 cm wall suction. Drained 250ml in the last 24 hours. Positive air leak still. - Cardiovascular Details: S1/S2 present. Reg rate/rhythm, NSR on tele. - Gastrointestinal Gastrointestinal Comment(s): Abd soft/NT/ND. Active BS. Sal diet. - Musculoskeletal Musculoskeletal: Present: strength equal bilaterally - Psychiatric Psychiatric: Present: A&O x's 3, appropriate affect, intact judgment & insight - Allied health notes Allied health notes reviewed: nursing - Labs CBC & Chem 7: 06/10/16 07:06 06/10/16 07:06 Labs: Abnormal Lab Results - Last 24 Hours (Table) 06/10/16 06/10/16 Range/Units 07:06 07:06 WBC 16.0 H (3.8-10.6) k/uL RBC 6.30 H (4.30-5.90) m/uL Hgb 18.3 H (13.0-17.5) gm/dL Plt Count 603 H (150-450) k/uL Neutrophils # 12.5 H (1.3-7.7) k/uL Sodium 135 L (137-145) mmol/L Carbon Dioxide 19 L (22-30) mmol/L BUN 41 H (9-20) mg/dL Glucose 110 H (74-99) mg/dL - Imaging and Cardiology Chest x-ray: report reviewed, image reviewed Assessment and Plan (1) Non-small cell carcinoma of right lung Status: Acute Plan: 1. Encourage patient to be out of bed all day. Increase activity in his room, physical therapy following. 2. Encourage incentive spirometry use. 3. CT to remain on suction. 4. Pain management with ordered medication regimen. 5. Comorbid medical problems to be managed by internal medicine service. 6. Discharge planning in progress, patient will need to go to a facility upon discharge 7. More recommendations as patient progresses. Time with Patient: Greater than 30
--- NOTE | 2016-06-10 13:14 | P.PN ---
Subjective Principal diagnosis: Squamous cell carcinoma of the right lung, status post right lower lobectomy and right middle lobectomy postoperative day # 14 This is a pleasant 71-year-old gentleman who was recently diagnosed with squamous cell carcinoma. He is now status post right middle and right lower lobectomies performed by Dr. Negron on 05/27/2016. He is seen again today in follow-up on the selective care unit. He remains awake and alert in no acute distress. Today's chest x-ray shows persistent extensive subcutaneous emphysema and a now moderate right upper lobe pneumothorax. The chest tube is in place. He was placed back on suction. Currently, he is resting fairly comfortably in bed. He denies any worsening shortness of breath, cough or congestion. He is maintaining good O2 saturations up to 100% on room air. He' s been afebrile. His right-sided chest discomfort is fairly well controlled. The patient is seen again today in follow-up on 05/31/2016 on the selective care unit. He is currently awake and alert in no acute distress. He states his breathing is somewhat easier today as compared to yesterday. He continues to work with his incentive spirometer. His chest tube remains in place. There is still an air leak. His chest x-ray does not show any significant pneumothorax. He is maintaining good O2 saturations in the upper 90s on room air. He remains afebrile. On , the patient is doing well. He still having a high requirement for pain medication. He is however, comfortable. He is resting comfortably in bed. He has a right-sided chest tube. No evidence of any air leak. The output from the chest tube was noted. Today chest x-ray shows no significant right-sided pneumothorax. Based on cardiothoracic surgery recommendations the chest tube was placed to waterseal. The patient is on room air oxygen. Tolerating diet. No nausea. No vomiting. No pleurisy. He is seen again today on the selective care unit 06/02/2016. He has been up ambulating with assistance from physical therapy. He denies any worsening shortness of breath. He remains with a dry nonproductive cough. His chest tube remains in place. There is intermittent leak. He is maintaining good O2 saturations in the mid 90s on room air. He is afebrile. His pain is well controlled. On 06/03/2016 the patient is being seen in follow-up. He still has a right- sided chest tube. Airleak is still present although less compared to yesterday. Today chest x-ray shows a very tiny right apical pneumothorax. The patient is quite weak. Nevertheless is able to move around with help and ambulate. Appetite is still poor. No chest pain. No nausea. No vomiting. No abdominal pain. No change in mental status. The patient postoperative findings showed a large 6.5 and to meet her mass, consistent with squamous cell carcinoma, and there is involvement of the pleural surface, and this is considered to be T2b, N0 and M0 lesion. On 06/04/2016, the patient has a large right-sided pneumothorax. The right- sided chest tube is in good location and there is a significant amount of air leak noted on today's evaluation. The patient also has subclinical his emphysema along the right chest laterally and anteriorly extending to his neck. The patient is having some skeletal chest wall pain along the right chest area. The patient however is calm and comfortable. No significant respiratory distress. He is taking [place] for pain control. Hemodynamically stable. No other complaints otherwise for now. He is weak. Oral intake is low and the patient is not meeting his caloric requirements. Note that the patient has a T2 N0 M0 disease, squamous cell lung cancer. On 06/05/2016, the patient is stable. He still has a large wide-open air leak to the chest tube. The pneumothorax on the right side of the lung has improved and sized. It still present occupying probably around 15-20% of the right hemithorax. The patient also has subcutaneous emphysema along the right lateral chest and anterior chest area. Pain is under good control. He is using incentive spirometer. Discussed the case with the surgeon. There may be ultimately possibility of taking this patient back to the operating room to repair The air leak On 06/06/2016, patient continues to have chest tube in place, continues to have airleak, minimal apical pneumothorax is noted, much smaller compared to the last few days. Clinically the patient is doing well, no cough no wheezing no shortness of breath. Minimal subcu emphysema is noted. Chest x-ray was reviewed. On 06/07/2016, patient continues to have tube in place, continues to have airleak , continues to have a small apical right sided pneumothorax, and significant subcu emphysema on the right chest. Clinically however the patient is stable, denies any shortness of breath, no cough, no wheezing, and no chest pain. All labs were reviewed. On 06/08/2016, patient is about the same, when the chest tube was placed off suction overnight, his whole right lung collapse completely, patient is now back on wall suction. Denies any specific complaints, no cough no wheezing no shortness of breath no chest pain. 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 Patient continues to have a chest tube in place, chest x-ray today showed complete reexpansion of the right lung, continues to have an air leak. Chest tube remains on suction low -20 cm. Patient seems to be very comfortable and in no distress, relatively asymptomatic. Chest x-ray was reviewed. On 06/10/2016, patient is basically about the same, continues to have chest tube on suction, continues to have airleak, but the patient is not in any form of distress. Objective - Vital Signs Vital signs: Vital Signs Temp 96.7 F L 06/10/16 04:00 Pulse 83 06/10/16 12:00 Resp 18 06/10/16 12:00 BP 104/63 06/10/16 12:00 Pulse Ox 91 L 06/10/16 12:00 Intake & Output 06/09/16 06/10/16 06/10/16 18:59 06:59 18:59 Intake Total 30 Output Total 465 230 460 Balance -435 -230 -460 Weight 54.8 kg 54.8 kg Intake: IV 30 NS 30 Output: Chest Tube Drainage 290 130 60 Chest Tube Right 290 130 60 Drainage 175 Right Lower Chest 175 Urine 100 400 Other: Voiding Method Urinal # Voids 1 1 - Exam Physical Exam: Revealed a 71-year-old male in no form of respiratory distress. O2 sat is 98% on room air. HEENT:[Neck is supple.] [No neck masses.] [No thyromegaly.] [No JVD.] Chest: [Minimal crackles at the right base otherwise unremarkable and clear.] Right chest incision is clean and dry. Chest tube continues to have an leak and continues to have significant amount of drainage serosanguinous Cardiac Exam: [Normal S1 and S2, no S3 gallop, no murmur.] Abdomen: [Soft, nontender, no megaly, no rebound, no guarding, normal bowel sounds.] Extremities: [No clubbing, no edema, no cyanosis.] Neurological Exam: [No focal neurologic deficit.] - Labs CBC & Chem 7: 06/10/16 07:06 06/10/16 07:06 Labs: Abnormal Lab Results - Last 24 Hours (Table) 06/10/16 06/10/16 Range/Units 07:06 07:06 WBC 16.0 H (3.8-10.6) k/uL RBC 6.30 H (4.30-5.90) m/uL Hgb 18.3 H (13.0-17.5) gm/dL Plt Count 603 H (150-450) k/uL Neutrophils # 12.5 H (1.3-7.7) k/uL Sodium 135 L (137-145) mmol/L Carbon Dioxide 19 L (22-30) mmol/L BUN 41 H (9-20) mg/dL Glucose 110 H (74-99) mg/dL Assessment and Plan Plan: #1 Squamous cell carcinoma. Status post right middle and right lower lobectomy , postoperative day # 14 The patient has T2B, N0, M0 disease. #2 persistent air leak The right-sided chest tube is in good location. Suspect leak from the suture line. There is quite extensive air leak that is ongoing through the chest tube #3 Chronic and ongoing tobacco dependence. #4 Hypertension. #5 Gastroesophageal reflux fluid disease. #6 chest wall pain secondary to above #7 history of smoking Recommendation: Continue wall suction, discharge planning is in progress to possible rehab facility. However final decision would have to be made regarding his chest tube whether to be replaced or the patient will require any surgical intervention. Presently not ready for discharge planning. Time with Patient: Less than 30
[2016-06-11] MEDS: MORPHINE SULFATE 4 MG/ML SYRINGE IVP PRN ×4 (00:07→20:39)
[2016-06-11 06:37] LABS: CH 28.9; CHCM 33.6; HCT 56.8 % (39.0-53.0); HDW 2.93; HGB 18.8 gm/dL (13.0-17.5); MCH 28.6 pg (25.0-35.0); MCV 86.5 fL (80.0-100.0); Mean Platelet Volume 6.6; RBC 6.57 m/uL (4.30-5.90); RDW 14.4 % (11.5-15.5); WBC 14.6 k/uL (3.8-10.6)
[2016-06-11] MEDS: PANTOPRAZOLE 40 MG TABLET PO SCH (06:52)
[2016-06-11 07:06] LABS: Anion Gap 16 mmol/L; Blood Urea Nitrogen 44 mg/dL (9-20); Carbon Dioxide 24 mmol/L (22-30); Chloride 98 mmol/L (98-107); Glucose 120 mg/dL (74-99); Non-African American GFR(MDRD) >60 (>60 ml/min/1.73 sqM); Potassium 4.5 mmol/L (3.5-5.1); Sodium 138 mmol/L (137-145)
[2016-06-11] MEDS: HYDROcodone/APAP 7.5-325MG 1 EACH TAB PO PRN ×2 (07:12→18:22)
[2016-06-11] MEDS: HYDROCHLOROTHIAZIDE 25 MG TAB PO SCH (07:49)
[2016-06-11] MEDS: DILTIAZEM CD 240 MG CAP.ER.24H PO SCH (07:49)
[2016-06-11] MEDS: NICOTINE 21MG/24HR PATCH TRANSDERM SCH (07:49)
[2016-06-11] MEDS: HEPARIN SODIUM,PORCINE 5,000 UNIT/ML 1 ML VIAL SQ SCH ×2 (07:49→20:36)
[2016-06-11] MEDS: ATORVASTATIN 40 MG TAB PO SCH (07:49)
[2016-06-11] MEDS: METOPROLOL TARTRATE 50 MG TAB PO SCH ×3 (07:49→20:38)
[2016-06-11] MEDS: ASPIRIN 81 MG CHEW PO SCH (07:49)
--- NOTE | 2016-06-11 08:38 | XR ---
EXAMINATION TYPE: XR chest 1V portable DATE OF EXAM: 06/11/2016 7:16 AM COMPARISON: Prior chest x-ray 10 Jun 2016 HISTORY: Pneumothorax, chest tube TECHNIQUE: Single frontal view of the chest is obtained. FINDINGS: Subcutaneous emphysema, right-sided chest tube, overlying cardiac leads again noted. Basil ar pneumothorax on the right is noted, there may be some slight interval improvement as compared to p rior exam. No evident effusion. IMPRESSION: Similar to prior exam, there may be some improvement in pneumothorax. Rotated exam, foll ow-up recommended.
[2016-06-11] MEDS: IPRATROPIUM-ALBUTEROL 3 ML NEB IH SCH ×4 (10:02→20:38)
--- NOTE | 2016-06-11 10:58 | P.PN ---
Subjective Principal diagnosis: Squamous cell carcinoma of the right lung, status post right lower lobectomy and right middle lobectomy postoperative day # 15 This is a pleasant 71-year-old gentleman who was recently diagnosed with squamous cell carcinoma. He is now status post right middle and right lower lobectomies performed by Dr. Negron on 05/27/2016. He is seen again today in follow-up on the selective care unit. He remains awake and alert in no acute distress. Today's chest x-ray shows persistent extensive subcutaneous emphysema and a now moderate right upper lobe pneumothorax. The chest tube is in place. He was placed back on suction. Currently, he is resting fairly comfortably in bed. He denies any worsening shortness of breath, cough or congestion. He is maintaining good O2 saturations up to 100% on room air. He' s been afebrile. His right-sided chest discomfort is fairly well controlled. The patient is seen again today in follow-up on 05/31/2016 on the selective care unit. He is currently awake and alert in no acute distress. He states his breathing is somewhat easier today as compared to yesterday. He continues to work with his incentive spirometer. His chest tube remains in place. There is still an air leak. His chest x-ray does not show any significant pneumothorax. He is maintaining good O2 saturations in the upper 90s on room air. He remains afebrile. On , the patient is doing well. He still having a high requirement for pain medication. He is however, comfortable. He is resting comfortably in bed. He has a right-sided chest tube. No evidence of any air leak. The output from the chest tube was noted. Today chest x-ray shows no significant right-sided pneumothorax. Based on cardiothoracic surgery recommendations the chest tube was placed to waterseal. The patient is on room air oxygen. Tolerating diet. No nausea. No vomiting. No pleurisy. He is seen again today on the selective care unit 06/02/2016. He has been up ambulating with assistance from physical therapy. He denies any worsening shortness of breath. He remains with a dry nonproductive cough. His chest tube remains in place. There is intermittent leak. He is maintaining good O2 saturations in the mid 90s on room air. He is afebrile. His pain is well controlled. On 06/03/2016 the patient is being seen in follow-up. He still has a right- sided chest tube. Airleak is still present although less compared to yesterday. Today chest x-ray shows a very tiny right apical pneumothorax. The patient is quite weak. Nevertheless is able to move around with help and ambulate. Appetite is still poor. No chest pain. No nausea. No vomiting. No abdominal pain. No change in mental status. The patient postoperative findings showed a large 6.5 and to meet her mass, consistent with squamous cell carcinoma, and there is involvement of the pleural surface, and this is considered to be T2b, N0 and M0 lesion. On 06/04/2016, the patient has a large right-sided pneumothorax. The right- sided chest tube is in good location and there is a significant amount of air leak noted on today's evaluation. The patient also has subclinical his emphysema along the right chest laterally and anteriorly extending to his neck. The patient is having some skeletal chest wall pain along the right chest area. The patient however is calm and comfortable. No significant respiratory distress. He is taking [place] for pain control. Hemodynamically stable. No other complaints otherwise for now. He is weak. Oral intake is low and the patient is not meeting his caloric requirements. Note that the patient has a T2 N0 M0 disease, squamous cell lung cancer. On 06/05/2016, the patient is stable. He still has a large wide-open air leak to the chest tube. The pneumothorax on the right side of the lung has improved and sized. It still present occupying probably around 15-20% of the right hemithorax. The patient also has subcutaneous emphysema along the right lateral chest and anterior chest area. Pain is under good control. He is using incentive spirometer. Discussed the case with the surgeon. There may be ultimately possibility of taking this patient back to the operating room to repair The air leak On 06/06/2016, patient continues to have chest tube in place, continues to have airleak, minimal apical pneumothorax is noted, much smaller compared to the last few days. Clinically the patient is doing well, no cough no wheezing no shortness of breath. Minimal subcu emphysema is noted. Chest x-ray was reviewed. On 06/07/2016, patient continues to have tube in place, continues to have airleak , continues to have a small apical right sided pneumothorax, and significant subcu emphysema on the right chest. Clinically however the patient is stable, denies any shortness of breath, no cough, no wheezing, and no chest pain. All labs were reviewed. On 06/08/2016, patient is about the same, when the chest tube was placed off suction overnight, his whole right lung collapse completely, patient is now back on wall suction. Denies any specific complaints, no cough no wheezing no shortness of breath no chest pain. 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 Patient continues to have a chest tube in place, chest x-ray today showed complete reexpansion of the right lung, continues to have an air leak. Chest tube remains on suction low -20 cm. Patient seems to be very comfortable and in no distress, relatively asymptomatic. Chest x-ray was reviewed. On 06/10/2016, patient is basically about the same, continues to have chest tube on suction, continues to have airleak, but the patient is not in any form of distress. On 06/11/2016, patient is basically about the same, in no distress, continues to have the significant air leak and chest tube. And the chest tube remains on suction. All labs were reviewed and they seem to be relatively unremarkable. Patient seems to have a bit of prerenal azotemia, hence I will have his IV fluid of 0.9 normal saline at 75 ML per hour. Objective - Vital Signs Vital signs: Vital Signs Temp 97.4 F L 06/11/16 07:49 Pulse 132 H 06/11/16 07:49 Resp 20 06/11/16 07:49 BP 105/85 06/11/16 07:49 Pulse Ox 93 L 06/11/16 07:49 Intake & Output 06/10/16 06/11/16 06/11/16 18:59 06:59 18:59 Intake Total 0 0 Output Total 1830 240 10 Balance -1830 -240 -10 Weight 54.8 kg Intake: IV 0 0 NS 0 0 Output: Chest Tube Drainage 130 240 10 Chest Tube Right 130 240 10 Urine 1700 Other: Voiding Method Urinal Urinal # Voids 1 - Exam Physical Exam: Revealed a 71-year-old male in no form of respiratory distress. O2 sat is 98% on room air. HEENT:[Neck is supple.] [No neck masses.] [No thyromegaly.] [No JVD.] Chest: [Minimal crackles at the right base otherwise unremarkable and clear.] Right chest incision is clean and dry. Chest tube continues to have an leak and continues to have significant amount of drainage serosanguinous Cardiac Exam: [Normal S1 and S2, no S3 gallop, no murmur.] Abdomen: [Soft, nontender, no megaly, no rebound, no guarding, normal bowel sounds.] Extremities: [No clubbing, no edema, no cyanosis.] Neurological Exam: [No focal neurologic deficit.] - Labs CBC & Chem 7: 06/11/16 06:20 06/11/16 06:20 Labs: Abnormal Lab Results - Last 24 Hours (Table) 06/11/16 06/11/16 Range/Units 06:20 06:20 WBC 14.6 H (3.8-10.6) k/uL RBC 6.57 H (4.30-5.90) m/uL Hgb 18.8 H (13.0-17.5) gm/dL Hct 56.8 H (39.0-53.0) % Plt Count 525 H (150-450) k/uL BUN 44 H (9-20) mg/dL Glucose 120 H (74-99) mg/dL Assessment and Plan Plan: #1 Squamous cell carcinoma. Status post right middle and right lower lobectomy , postoperative day # 15 The patient has T2B, N0, M0 disease. #2 persistent air leak The right-sided chest tube is in good location. Suspect leak from the suture line. There is quite extensive air leak that is ongoing through the chest tube #3 Chronic and ongoing tobacco dependence. #4 Hypertension. #5 Gastroesophageal reflux fluid disease. #6 chest wall pain secondary to above #7 history of smoking Recommendation: Continue wall suction, discharge planning is in progress to possible rehab facility. However final decision would have to be made regarding his chest tube whether to be replaced or the patient will require any surgical intervention. Presently not ready for discharge planning. Time with Patient: Less than 30
[2016-06-11] MEDS: SODIUM CHLORIDE 0.9% 1,000 ML IV SCH (11:14)
[2016-06-11] MEDS: BISACODYL 5 MG TABLET.DR PO PRN (11:17)
--- NOTE | 2016-06-11 11:50 | P.PN ---
<Good Russell L - Last Filed: 06/11/16 11:31> Progress Note - Text CV Surgery Nursing Principal diagnosis: Non-small cell carcinoma right lower lobe of the lung POD #14 right thoracotomy, right lower and middle lobectomy, mediastinal lymph node dissection, cryoablation of intercostal nerves IV through VIII Patient awake and alert, no distress noted, no specific complaints. Vital Signs: Afebrile Vital Signs - 24 hr 06/10/16 06/10/16 06/10/16 12:00 12:15 13:40 Temperature Pulse Rate 92 79 Pulse Rate [ Obstetrician And Gynaecologist ] Pulse Rate [ 83 Pulse Oximetery ] Respiratory 18 Rate Blood Pressure [Left Arm] Blood Pressure 104/63 [Right Arm Supine] O2 Sat by Pulse 91 L Oximetry 06/10/16 06/10/16 06/10/16 15:48 15:55 16:00 Temperature Pulse Rate 80 88 Pulse Rate [ Obstetrician And Gynaecologist ] Pulse Rate [ 80 Pulse Oximetery ] Respiratory 18 Rate Blood Pressure [Left Arm] Blood Pressure 101/61 [Right Arm Supine] O2 Sat by Pulse 92 L Oximetry 06/10/16 06/10/16 06/11/16 20:00 23:56 00:00 Temperature 97 F L Pulse Rate Pulse Rate [ Obstetrician And Gynaecologist ] Pulse Rate [ 76 74 Pulse Oximetery ] Respiratory 18 18 18 Rate Blood Pressure [Left Arm] Blood Pressure 109/64 118/64 [Right Arm Supine] O2 Sat by Pulse 93 L 94 L Oximetry 06/11/16 06/11/16 06/11/16 04:00 07:49 11:22 Temperature 99.3 F 97.4 F L 96.8 F L Pulse Rate Pulse Rate [ 132 H 112 H Obstetrician And Gynaecologist ] Pulse Rate [ 116 H Pulse Oximetery ] Respiratory 18 20 18 Rate Blood Pressure 125/88 105/85 115/81 [Left Arm] Blood Pressure [Right Arm Supine] O2 Sat by Pulse 95 93 L 92 L Oximetry Labs: Short CBC 06/11/16 Range/Units 06:20 WBC 14.6 H (3.8-10.6) k/uL Hgb 18.8 H (13.0-17.5) gm/dL Hct 56.8 H (39.0-53.0) % Plt Count 525 H (150-450) k/uL BMP 06/11/16 06:20 Sodium 138 Potassium 4.5 Chloride 98 Carbon Dioxide 24 BUN 44 H Creatinine 1.04 Glucose 120 H Calcium 10.0 Lungs: Few scattered rhonchi throughout, diminished bilateral bases right greater than left. Positive subcutaneous emphysema to his right chest. Respirations aren't labored and symmetrical. O2 sat: 95% on room air. I/S: 750 mL, reviewed with the patient important of using his incentive spirometry every hour while awake. The patient did give good return demonstration on his incentive spirometry but does need encouragement to use it. Heart: S1S2, regular rhythm and rate, positive systolic murmur. Remote telemetry showing sinus tachycardia heart rate 120. Sternum stable, chest incision clean with silverlon dressing clean and dry. Abdomen: Soft, Positive bowel sounds present in all 4 quadrants, U/O: Adequate. Chest Tubes: Right pleural chest tube with positive continuous air leak, remains to continuous low wall suction. Draining thin serosanguineous drainage. 150 mL output in the last 8 hours, 240 mL output in the last 24 hours. 24 hr Total: Intake & Output 06/09/16 06/10/16 06/11/16 06/12/16 06:59 06:59 06:59 06:59 Intake Total 400 30 0 Output Total 279 471 3822 10 Balance 0 -665 -0 -10 Weight 55.2 kg 54.8 kg 54.8 kg Active Medications Hydrocodone Bitart/Acetaminophen ([place] 7.5-325) 1 each PO Q6H PRN PRN Reason: Moderate Pain Last Admin: 06/11/16 07:12 Dose: 1 each Albuterol/Ipratropium (Duoneb 0.5 Mg-3 Mg/3 Ml Soln) 3 ml IH RT-Q1H PRN PRN Reason: Shortness Of Breath Or Wheezing Albuterol/Ipratropium (Duoneb 0.5 Mg-3 Mg/3 Ml Soln) 3 ml IH RT-QID [facility] Last Admin: 06/11/16 10:02 Dose: Not Given Aspirin (Aspirin) 81 mg PO DAILY [facility] Last Admin: 06/11/16 07:49 Dose: 81 mg Atorvastatin Calcium (Lipitor) 40 mg PO DAILY [facility] Last Admin: 06/11/16 07:49 Dose: 40 mg Bisacodyl (Dulcolax) 10 mg RECTAL DAILY PRN PRN Reason: Constipation Bisacodyl (Dulcolax) 10 mg PO DAILY PRN PRN Reason: Constipation Last Admin: 06/11/16 11:17 Dose: 10 mg Diltiazem HCl (Cardizem Cd) 240 mg PO DAILY [facility] Last Admin: 06/11/16 07:49 Dose: 240 mg Haloperidol Lactate (Haldol) 5 mg IM Q6HR PRN PRN Reason: Agitation or Acute Psychosis Last Admin: 05/28/16 04:45 Dose: 5 mg Heparin Sodium (Porcine) (Heparin) 5,000 unit SQ Q12HR [facility] Last Admin: 06/11/16 07:49 Dose: 5,000 unit Hydrochlorothiazide (Hydrodiuril) 25 mg PO DAILY [facility] Last Admin: 06/11/16 07:49 Dose: 25 mg Sodium Chloride (Saline 0.9%) 1,000 mls @ 75 mls/hr IV .[id number] [facility] Last Admin: 06/11/16 11:14 Dose: 75 mls/hr Loratadine (Claritin) 5 mg PO Q12HR PRN PRN Reason: Allergy Symptoms Last Admin: 05/29/16 17:53 Dose: 5 mg Metoclopramide HCl (Reglan) 5 mg IVP Q4HR PRN PRN Reason: Nausea And Vomiting Metoprolol Tartrate (Lopressor) 50 mg PO TID [facility] Last Admin: 06/11/16 07:49 Dose: 50 mg Miscellaneous Information (Magnesium Per Protocol) 1 each MISCELLANE DAILY PRN ; Protocol PRN Reason: Per Protocol Miscellaneous Information (Potassium Per Protocol) 1 each MISCELLANE DAILY PRN ; Protocol PRN Reason: Per Protocol Miscellaneous Information (Magnesium Per Protocol) 1 each MISCELLANE DAILY PRN ; Protocol PRN Reason: Per Protocol Miscellaneous Information (Magnesium Per Protocol) 1 each MISCELLANE DAILY PRN ; Protocol PRN Reason: Per Protocol Morphine Sulfate (Morphine Sulfate (Inj)) 4 mg IVP Q4HR PRN PRN Reason: Pain Last Admin: 06/11/16 05:05 Dose: 4 mg Nicotine (Habitrol 21mg/24hr Patch) 1 patch TRANSDERM DAILY [facility] Last Admin: 06/11/16 07:49 Dose: 1 patch Nicotine Polacrilex (Nicorette Gum) 2 mg BUCCAL Q4HR PRN PRN Reason: Nicotine Cravings Ondansetron HCl (Zofran) 4 mg IVP Q8HR PRN PRN Reason: Nausea And Vomiting Last Admin: 06/09/16 06:53 Dose: 4 mg Pantoprazole Sodium (Protonix) 40 mg PO [id number] [facility] Last Admin: 06/11/16 06:52 Dose: 40 mg Plan: 1. Encourage patient to be out of bed all day. Increase activity in his room, physical therapy following. 2. Encourage incentive spirometry use. 3. Chest tube to remain on low continuous wall suction. 4. Pain management with ordered medication regimen. 5. Comorbid medical problems to be managed by internal medicine service. Dr. De will start the patient on 0.9% normal saline at 75 mL per hour. 6. Discharge planning in progress, patient will need to go to a rehabilitation facility upon discharge 7. More recommendations as patient progresses. <Rudi Gutierrez - Last Filed: 06/11/16 14:39> Progress Note - Text The patient was seen and examined. Agree with the above assessment and plan. His chest x-ray reveals an expanded right lung with subcutaneous emphysema. His chest tube continues to have a significant air leak. He appears oriented this morning. We will get him up in a chair today.
[2016-06-12] MEDS: SODIUM CHLORIDE 0.9% 1,000 ML IV SCH ×2 (01:11→09:09)
[2016-06-12] MEDS: MORPHINE SULFATE 4 MG/ML SYRINGE IVP PRN ×4 (01:15→23:26)
[2016-06-12 06:44] LABS: CH 28.7; CHCM 33.9; HCT 52.7 % (39.0-53.0); HDW 3.01; HGB 17.1 gm/dL (13.0-17.5); MCH 27.7 pg (25.0-35.0); MCHC 32.5 g/dL (31.0-37.0); MCV 85.4 fL (80.0-100.0); Mean Platelet Volume 6.9; RBC 6.17 m/uL (4.30-5.90); RDW 14.5 % (11.5-15.5); WBC 18.2 k/uL (3.8-10.6)
[2016-06-12] MEDS: PANTOPRAZOLE 40 MG TABLET PO SCH (06:53)
[2016-06-12 07:03] LABS: Anion Gap 12 mmol/L; Carbon Dioxide 22 mmol/L (22-30); Chloride 100 mmol/L (98-107); Glucose 124 mg/dL (74-99); Non-African American GFR(MDRD) >60 (>60 ml/min/1.73 sqM); Sodium 134 mmol/L (137-145)
[2016-06-12 07:37] LABS: Blood Urea Nitrogen 39 mg/dL (9-20); Potassium 4.8 mmol/L (3.5-5.1)
[2016-06-12] MEDS: IPRATROPIUM-ALBUTEROL 3 ML NEB IH SCH ×4 (08:23→20:19)
--- NOTE | 2016-06-12 08:31 | XR ---
EXAMINATION TYPE: XR chest 1V portable DATE OF EXAM: 06/12/2016 7:11 AM COMPARISON: 06/11/2016 HISTORY: Pneumothorax TECHNIQUE: Single frontal view of the chest is obtained. FINDINGS: Right basilar pneumothorax is again evident, similar in degree to the prior exam with 1.9 cm pleural separation although degree of the superior apical pneumothorax appears increased from the prior exam now measuring 4.6 cm. Right-sided thoracostomy tube is unchanged in position. Increased density and reticular morphology of the right lung relates to compressive atelectasis. Medi astinum is unchanged in location in comparison to the prior exam. Extensive subcutaneous emphysema ag ain overlies the right hemithorax. Left lung remains clear. IMPRESSION: 1. Slight increase in apical pleural separation with stable right basilar pleural separation and unch anged thoracostomy tube. Overall slight increase in degree of pneumothorax and right lung atelectasis . 2. Extensive right chest wall subcutaneous emphysema.
[2016-06-12] MEDS: HYDROCHLOROTHIAZIDE 25 MG TAB PO SCH (08:58)
[2016-06-12] MEDS: ATORVASTATIN 40 MG TAB PO SCH (08:58)
[2016-06-12] MEDS: METOPROLOL TARTRATE 50 MG TAB PO SCH ×3 (08:58→22:02)
[2016-06-12] MEDS: ASPIRIN 81 MG CHEW PO SCH (08:58)
[2016-06-12] MEDS: DILTIAZEM CD 240 MG CAP.ER.24H PO SCH (08:58)
[2016-06-12] MEDS: NICOTINE 21MG/24HR PATCH TRANSDERM SCH (08:58)
[2016-06-12] MEDS: HEPARIN SODIUM,PORCINE 5,000 UNIT/ML 1 ML VIAL SQ SCH ×2 (08:58→22:02)
[2016-06-12] MEDS: HYDROcodone/APAP 7.5-325MG 1 EACH TAB PO PRN (10:20)
--- NOTE | 2016-06-12 11:13 | P.PN ---
Subjective Principal diagnosis: Squamous cell carcinoma of the right lung, status post right lower lobectomy and right middle lobectomy postoperative day # 16 This is a pleasant 71-year-old gentleman who was recently diagnosed with squamous cell carcinoma. He is now status post right middle and right lower lobectomies performed by Dr. Negron on 05/27/2016. He is seen again today in follow-up on the selective care unit. He remains awake and alert in no acute distress. Today's chest x-ray shows persistent extensive subcutaneous emphysema and a now moderate right upper lobe pneumothorax. The chest tube is in place. He was placed back on suction. Currently, he is resting fairly comfortably in bed. He denies any worsening shortness of breath, cough or congestion. He is maintaining good O2 saturations up to 100% on room air. He' s been afebrile. His right-sided chest discomfort is fairly well controlled. The patient is seen again today in follow-up on 05/31/2016 on the selective care unit. He is currently awake and alert in no acute distress. He states his breathing is somewhat easier today as compared to yesterday. He continues to work with his incentive spirometer. His chest tube remains in place. There is still an air leak. His chest x-ray does not show any significant pneumothorax. He is maintaining good O2 saturations in the upper 90s on room air. He remains afebrile. On , the patient is doing well. He still having a high requirement for pain medication. He is however, comfortable. He is resting comfortably in bed. He has a right-sided chest tube. No evidence of any air leak. The output from the chest tube was noted. Today chest x-ray shows no significant right-sided pneumothorax. Based on cardiothoracic surgery recommendations the chest tube was placed to waterseal. The patient is on room air oxygen. Tolerating diet. No nausea. No vomiting. No pleurisy. He is seen again today on the selective care unit 06/02/2016. He has been up ambulating with assistance from physical therapy. He denies any worsening shortness of breath. He remains with a dry nonproductive cough. His chest tube remains in place. There is intermittent leak. He is maintaining good O2 saturations in the mid 90s on room air. He is afebrile. His pain is well controlled. On 06/03/2016 the patient is being seen in follow-up. He still has a right- sided chest tube. Airleak is still present although less compared to yesterday. Today chest x-ray shows a very tiny right apical pneumothorax. The patient is quite weak. Nevertheless is able to move around with help and ambulate. Appetite is still poor. No chest pain. No nausea. No vomiting. No abdominal pain. No change in mental status. The patient postoperative findings showed a large 6.5 and to meet her mass, consistent with squamous cell carcinoma, and there is involvement of the pleural surface, and this is considered to be T2b, N0 and M0 lesion. On 06/04/2016, the patient has a large right-sided pneumothorax. The right- sided chest tube is in good location and there is a significant amount of air leak noted on today's evaluation. The patient also has subclinical his emphysema along the right chest laterally and anteriorly extending to his neck. The patient is having some skeletal chest wall pain along the right chest area. The patient however is calm and comfortable. No significant respiratory distress. He is taking [place] for pain control. Hemodynamically stable. No other complaints otherwise for now. He is weak. Oral intake is low and the patient is not meeting his caloric requirements. Note that the patient has a T2 N0 M0 disease, squamous cell lung cancer. On 06/05/2016, the patient is stable. He still has a large wide-open air leak to the chest tube. The pneumothorax on the right side of the lung has improved and sized. It still present occupying probably around 15-20% of the right hemithorax. The patient also has subcutaneous emphysema along the right lateral chest and anterior chest area. Pain is under good control. He is using incentive spirometer. Discussed the case with the surgeon. There may be ultimately possibility of taking this patient back to the operating room to repair The air leak On 06/06/2016, patient continues to have chest tube in place, continues to have airleak, minimal apical pneumothorax is noted, much smaller compared to the last few days. Clinically the patient is doing well, no cough no wheezing no shortness of breath. Minimal subcu emphysema is noted. Chest x-ray was reviewed. On 06/07/2016, patient continues to have tube in place, continues to have airleak , continues to have a small apical right sided pneumothorax, and significant subcu emphysema on the right chest. Clinically however the patient is stable, denies any shortness of breath, no cough, no wheezing, and no chest pain. All labs were reviewed. On 06/08/2016, patient is about the same, when the chest tube was placed off suction overnight, his whole right lung collapse completely, patient is now back on wall suction. Denies any specific complaints, no cough no wheezing no shortness of breath no chest pain. 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 Patient continues to have a chest tube in place, chest x-ray today showed complete reexpansion of the right lung, continues to have an air leak. Chest tube remains on suction low -20 cm. Patient seems to be very comfortable and in no distress, relatively asymptomatic. Chest x-ray was reviewed. On 06/10/2016, patient is basically about the same, continues to have chest tube on suction, continues to have airleak, but the patient is not in any form of distress. On 06/11/2016, patient is basically about the same, in no distress, continues to have the significant air leak and chest tube. And the chest tube remains on suction. All labs were reviewed and they seem to be relatively unremarkable. Patient seems to have a bit of prerenal azotemia, hence I will have his IV fluid of 0.9 normal saline at 75 ML per hour. On 06/12/2016, patient is about the same, he seems to be getting weaker, not eating much, hence I recommended a dietitian evaluation and I believe the patient may be scheduled to undergo surgical repair of his leak tomorrow. Patient was placed nothing by mouth by thoracic surgery, and I believe Dr. Negron will address that issue in a.m. In the meantime patient was placed on IV fluids because of his prerenal azotemia and worsening renal functioning, seems to be better today with BUN down to 39 creatinine is down to 0.80 patient is noted to have leukocytosis with WBC count of 18.2. Continues to have a good sized right-sided pneumothorax in spite of chest tube suction. Objective - Vital Signs Vital signs: Vital Signs Temp 98.5 F 06/12/16 08:58 Pulse 113 H 06/12/16 08:58 Resp 18 06/12/16 08:58 BP 101/72 06/12/16 08:58 Pulse Ox 95 06/12/16 08:58 Intake & Output 06/11/16 06/12/16 06/12/16 18:59 06:59 18:59 Intake Total 225 600 Output Total 640 750 50 Balance -415 -150 -50 Weight 55.5 kg Intake: IV 600 Sodium Chloride 0.9% 1, 600 000 ml @ 75 mls/hr IV . [id number] HEATHER Rx#:[id number] Intake, IV Titration 225 Amount Sodium Chloride 0.9% 1, 225 000 ml @ 75 mls/hr IV . [id number] HEATHER Rx#:[id number] Output: Chest Tube Drainage 40 150 50 Chest Tube Right 40 150 50 Urine 600 600 Other: Voiding Method Urinal Urinal Urinal # Voids 1 1 - Exam Physical Exam: Revealed a 71-year-old male in no form of respiratory distress. O2 sat is 98% on room air. HEENT:[Neck is supple.] [No neck masses.] [No thyromegaly.] [No JVD.] Chest: [Minimal crackles at the right base otherwise unremarkable and clear.] Right chest incision is clean and dry. Chest tube continues to have an leak and continues to have significant amount of drainage serosanguinous Cardiac Exam: [Normal S1 and S2, no S3 gallop, no murmur.] Abdomen: [Soft, nontender, no megaly, no rebound, no guarding, normal bowel sounds.] Extremities: [No clubbing, no edema, no cyanosis.] Neurological Exam: [No focal neurologic deficit.] - Labs CBC & Chem 7: 06/12/16 06:25 06/12/16 06:25 Labs: Abnormal Lab Results - Last 24 Hours (Table) 06/12/16 06/12/16 Range/Units 06:25 06:25 WBC 18.2 H (3.8-10.6) k/uL RBC 6.17 H (4.30-5.90) m/uL Plt Count 491 H (150-450) k/uL Sodium 134 L (137-145) mmol/L BUN 39 H (9-20) mg/dL Glucose 124 H (74-99) mg/dL Assessment and Plan Plan: #1 Squamous cell carcinoma. Status post right middle and right lower lobectomy , postoperative day # 16 The patient has T2B, N0, M0 disease. #2 persistent air leak The right-sided chest tube is in good location. Suspect leak from the suture line. There is quite extensive air leak that is ongoing through the chest tube #3 Chronic and ongoing tobacco dependence. #4 Hypertension. #5 Gastroesophageal reflux fluid disease. #6 chest wall pain secondary to above #7 history of smoking Recommendation: Continue wall suction, patient may required surgical reexploration to repair the right sided persistent leak since the surgery. Continue present supportive care measures, dietitian was consulted regarding her nutritional status, may have to eventually feeding via Dobbhoff tube if necessary. Patient's appetite is extremely poor, and he is not eating much. Continue hydration for his prerenal azotemia which seems to be improving over the last 24 hours. We'll continue to follow discussed his condition with thoracic surgery on the case. Time with Patient: Less than 30
[2016-06-12] MEDS ORDERED: LACTULOSE 20 GM/30 ML CUP PO ONE (11:24)
--- NOTE | 2016-06-12 11:29 | P.PN ---
<Good Russell - Last Filed: 06/12/16 11:16> Progress Note - Text CV Surgery Nursing Principal diagnosis: Non-small cell carcinoma right lower lobe of the lung POD #14 right thoracotomy, right lower and middle lobectomy, mediastinal lymph node dissection, cryoablation of intercostal nerves IV through VIII. Patient awake and alert, no distress noted, is complaining of having no appetite. Denies complaints of pain. He states he hasn't eaten in a couple of days as he just has no appetite. Vital Signs: Afebrile Vital Signs - 24 hr 06/11/16 06/11/16 06/11/16 11:22 15:46 15:50 Temperature 96.8 F L 97.3 F L Pulse Rate 94 Pulse Rate [ 112 H 92 [employer] Worker ] Pulse Rate [ Pulse Oximetery ] Respiratory 18 18 Rate Blood Pressure 115/81 118/83 [Left Arm] O2 Sat by Pulse 92 L 94 L Oximetry 06/11/16 06/11/16 06/11/16 16:00 20:00 20:38 Temperature 97.4 F L Pulse Rate 94 74 Pulse Rate [ [employer] Worker ] Pulse Rate [ 73 Pulse Oximetery ] Respiratory 16 Rate Blood Pressure 113/71 [Left Arm] O2 Sat by Pulse 95 Oximetry 06/11/16 06/11/16 06/12/16 20:51 23:46 04:00 Temperature 98.2 F 97.7 F Pulse Rate 76 Pulse Rate [ [employer]er ] Pulse Rate [ 70 85 Pulse Oximetery ] Respiratory 16 16 Rate Blood Pressure 103/65 103/71 [Left Arm] O2 Sat by Pulse 97 95 Oximetry 06/12/16 08:58 Temperature 98.5 F Pulse Rate Pulse Rate [ 113 H [employer] Worker ] Pulse Rate [ Pulse Oximetery ] Respiratory 18 Rate Blood Pressure 101/72 [Left Arm] O2 Sat by Pulse 95 Oximetry Labs: Short CBC 06/12/16 Range/Units 06:25 WBC 18.2 H (3.8-10.6) k/uL Hgb 17.1 (13.0-17.5) gm/dL Hct 52.7 (39.0-53.0) % Plt Count 491 H (150-450) k/uL BMP 06/12/16 06:25 Sodium 134 L Potassium 4.8 Chloride 100 Carbon Dioxide 22 BUN 39 H Creatinine 0.80 Glucose 124 H Calcium 9.0 IV Fluids: 0.9% normal saline at 75 mL per hour. Lungs: Few scattered rhonchi throughout, diminished bilateral bases right greater than left. Positive subcutaneous emphysema to his right chest. Respirations are symmetrical and unlabored. O2 sat: 95% on room air. I/S: 1000 L, reviewed with the patient important of using his incentive spirometry every hour while awake. The patient did give a good return demonstration on his incentive spirometry. Heart: S1S2, regular rhythm and rate, positive systolic murmur. Remote telemetry showing normal sinus rhythm heart rate 98. Right lateral chest incisions clean dry and intact. Dressing clean dry and intact. Abdomen: Soft, Positive bowel sounds present in all 4 quadrants. Dulcolax suppository given yesterday 06/11/2016 with no results. U/O: Adequate. Patient is having episodes of incontinence. Chest Tubes: Right pleural chest tube with continuous air leak. He remains to continuous low wall suction. It is draining thin serosanguineous drainage 70 mL output in the last 8 hours, 320 mL output in the last 24 hours. 24 hr Total: Intake & Output 06/10/16 06/11/16 06/12/16 06/13/16 06:59 06:59 06:59 06:59 Intake Total 30 0 825 Output Total 695 2070 1390 50 Balance -665 -2070 -565 -50 Weight 54.8 kg 54.8 kg 55.5 kg Active Medications Hydrocodone Bitart/Acetaminophen ([employer] [facility] 7.5-325) 1 each PO Q6H PRN PRN Reason: Moderate Pain Last Admin: 06/12/16 10:20 Dose: 1 each Albuterol/Ipratropium (Duoneb 0.5 Mg-3 Mg/3 Ml Soln) 3 ml IH RT-Q1H PRN PRN Reason: Shortness Of Breath Or Wheezing Albuterol/Ipratropium (Duoneb 0.5 Mg-3 Mg/3 Ml Soln) 3 ml IH RT-QID [facility] Last Admin: 06/12/16 08:23 Dose: Not Given Aspirin (Aspirin) 81 mg PO DAILY [facility] Last Admin: 06/12/16 08:58 Dose: 81 mg Atorvastatin Calcium (Lipitor) 40 mg PO DAILY [facility] Last Admin: 05/07/17 08:58 Dose: 40 mg Bisacodyl (Dulcolax) 10 mg RECTAL DAILY PRN PRN Reason: Constipation Bisacodyl (Dulcolax) 10 mg PO DAILY PRN PRN Reason: Constipation Last Admin: 06/11/16 11:17 Dose: 10 mg Diltiazem HCl (Cardizem Cd) 240 mg PO DAILY [facility] Last Admin: 06/12/16 08:58 Dose: 240 mg Haloperidol Lactate (Haldol) 5 mg IM Q6HR PRN PRN Reason: Agitation or Acute Psychosis Last Admin: 05/28/16 04:45 Dose: 5 mg Heparin Sodium (Porcine) (Heparin) 5,000 unit SQ Q12HR [facility] Last Admin: 06/12/16 08:58 Dose: 5,000 unit Hydrochlorothiazide (Hydrodiuril) 25 mg PO DAILY [facility] Last Admin: 06/12/16 08:58 Dose: 25 mg Sodium Chloride (Saline 0.9%) 1,000 mls @ 75 mls/hr IV .[id number] [facility] Last Admin: 06/12/16 09:09 Dose: Not Given Lactulose (Cephulac) 20 gm PO ONCE ONE Stop: 06/12/16 11:25 Loratadine (Claritin) 5 mg PO Q12HR PRN PRN Reason: Allergy Symptoms Last Admin: 05/29/16 17:53 Dose: 5 mg Megestrol Acetate (Megace) 400 mg PO DAILY [facility] Metoclopramide HCl (Reglan) 5 mg IVP Q4HR PRN PRN Reason: Nausea And Vomiting Metoprolol Tartrate (Lopressor) 50 mg PO TID [facility] Last Admin: 06/12/16 08:58 Dose: 50 mg Miscellaneous Information (Magnesium Per Protocol) 1 each MISCELLANE DAILY PRN ; Protocol PRN Reason: Per Protocol Miscellaneous Information (Potassium Per Protocol) 1 each MISCELLANE DAILY PRN ; Protocol PRN Reason: Per Protocol Miscellaneous Information (Magnesium Per Protocol) 1 each MISCELLANE DAILY PRN ; Protocol PRN Reason: Per Protocol Miscellaneous Information (Magnesium Per Protocol) 1 each MISCELLANE DAILY PRN ; Protocol PRN Reason: Per Protocol Morphine Sulfate (Morphine Sulfate (Inj)) 4 mg IVP Q4HR PRN PRN Reason: Pain Last Admin: 06/12/16 09:06 Dose: 4 mg Nicotine (Habitrol 21mg/24hr Patch) 1 patch TRANSDERM DAILY [facility] Last Admin: 06/12/16 08:58 Dose: 1 patch Nicotine Polacrilex (Nicorette Gum) 2 mg BUCCAL Q4HR PRN PRN Reason: Nicotine Cravings Ondansetron HCl (Zofran) 4 mg IVP Q8HR PRN PRN Reason: Nausea And Vomiting Last Admin: 06/09/16 06:53 Dose: 4 mg Pantoprazole Sodium (Protonix) 40 mg PO [id number] [facility] Last Admin: 06/12/16 06:53 Dose: 40 mg Plan: 1. Encourage patient to be out of bed all day. Increase activity in his room, physical therapy following. 2. Encourage incentive spirometry use every hour while awake. 3. Chest tube to remain on low continuous wall suction. The patient will be placed nothing by mouth after midnight. Repeat portable chest x-ray in a.m. 4. Pain management with ordered medication regimen. 5. Comorbid medical problems to be managed by internal medicine service. Dr. De will start the patient on 0.9% normal saline at 75 mL per hour. 6. He will be placed on Megace 400 mg by mouth daily for his appetite. 7. Urinalysis will be obtained due to his incontinence. 8. Lactulose 20 g by mouth 1 for his constipation. 9. More recommendations as patient progresses. <Rudi Gutierrez - Last Filed: 06/12/16 16:14> Progress Note - Text The patient was seen and examined. I agree with the above assessment and plan. He continues to have a significant air leak despite being on suction. His chest x-ray reveals an apical space. We will speak with Dr. Negron regarding possible surgical exploration.
[2016-06-12] MEDS: MEGESTROL 400 MG/10 ML CUP PO SCH (11:49)
--- NOTE | 2016-06-12 16:26 | PN ---
DATE OF SERVICE: 06/12/2016 PRESENTING COMPLAINT: Right partial right lobectomy. INTERVAL HISTORY: The patient is status post right middle and lower lobectomy. Right chest wall chest tube remains in place. Patient continues to complain of low appetite. Patient is in bed, awake, alert, watching television. Patient seems a bit lethargic. No acute distress noted or voiced. Review of systems for constitutional, cardiovascular, GI, pulmonary complete ; relevant findings as above. CURRENT MEDICATIONS: 1. [employer]. 2. DuoNeb. 3. Aspirin. 4. Atorvastatin. 5. Bisacodyl. 6. Diltiazem. 7. Haloperidol. 8. Heparin. 9. Hydrochlorothiazide. 10. Loratadine. 11. Metoclopramide. 12. Metoprolol. 13. Habitrol patch. 14. Pantoprazole. PHYSICAL EXAMINATION: VITAL SIGNS: Temperature 97.9, pulse 74, respirations 18, blood pressure 101/72, oxygen saturation 94% on room air. GENERAL APPEARANCE: Patient awake, however, drifts back off to sleep, sitting in his bed. No acute distress noted or voiced. EYES: Pupils equal. Conjunctivae normal. NECK: JVD not raised. Mass not palpable. RESPIRATORY: Effort normal. LUNGS: Diminished breath sounds bilaterally with right lobe more diminished than left. Subcutaneous emphysema noted to the right upper chest wall and upper above the clavicle. Chest tube remains in the right chest wall with serosanguineous drainage and Pleur-Evac. CARDIOVASCULAR: S1, S2 sounds are normal. No edema noted. ABDOMEN: Soft, nontender. Liver and spleen not palpable. PSYCHIATRIC: Patient is alert and oriented x3. Mood and affect are normal. Chest wall: The right chest tube remains in place with subcutaneous emphysema noted as above. Chest tube Pleur-Evac shows an air leak within the Pleur-Evac. INVESTIGATIONS: White blood cell count 18.2 up from 14.6, sodium 134, BUN 39. Creatinine 0.80. Chest x-ray shows a slight increase in apical pleural separation with right stable bibasilar pleural separation and unchanged thoracostomy tube. There is a slight increase in the degree of pneumothorax and right lung atelectasis. Additionally, there is right chest wall subcutaneous emphysema. ASSESSMENT: 1. Right middle and lower lobe resection for lung cancer, including 4 to 8 intercostal cryoablation for pain control. 2. Emphysema in a current smoker. 3. Chronic nicotine dependence. The patient is a cigarette smoker. 4. Essential hypertension. 5. Gastroesophageal reflux disease. 6. Chronic alcohol dependence. Patient has had no delirium as a result of cessation of alcohol use. 7. Right pneumothorax, iatrogenic. Right chest wall chest tube remains in place. Pneumothorax today on chest x-ray reveals and interval increase. 8. Subcutaneous emphysema remains on the right upper chest wall. PLAN: Continue to mobilize patient, getting patient up daily in the chair for meals. Pulmonology remains on the case and recommends continuation of wall suction and there may be surgical intervention required to repair the right-sided persistent leak since his original surgery. Cardiothoracic surgery recommending patient to be out of bed, increased activity and physical therapy. Patient appetite low and nutritional services consulted placed. Consideration also being given to placement of a Dobbhoff feeding tube temporarily while patient continues to not eat. Megace was added to try and increase appetite. The patient was seen and examined by a nurse practitioner Zainab Rivera and all elements of the case were discussed with attending, Dr. Albert. I performed a history and physical examination of this patient and discussed the same with the dictator. I agree with the dictator's note. Any additional findings/opinions, etc. will be noted.
[2016-06-13] MEDS: SODIUM CHLORIDE 0.9% 1,000 ML IV SCH ×2 (03:00→17:20)
[2016-06-13 03:16] LABS: Appearance,Urine Clear (Clear); Bilirubin,Urine Negative (Negative); Glucose,Urine (UA) Negative (Negative); Ketones,Urine Trace (Negative); Leukocyte Esterase,Urine Negative (Negative); Nitrite,Urine Negative (Negative); PH, Urine 5.5 (5.0-8.0); Protein,Urine Negative (Negative); Specific Gravity,Urine 1.016 (1.001-1.035); UA Billing (MACRO vs. MICRO) CHEM
[2016-06-13] MEDS: MORPHINE SULFATE 4 MG/ML SYRINGE IVP PRN ×3 (03:46→11:20)
[2016-06-13 05:59] LABS: Basophils % (A) 0 %; CH 29.1; CHCM 34.1; Eosinophils # (A) 0.3 k/uL (0-0.7); Eosinophils % (A) 2 %; HCT 45.7 % (39.0-53.0); Luc % (Auto) 1; Lymphocytes % (A) 6 %; MCH 28.2 pg (25.0-35.0); MCHC 32.9 g/dL (31.0-37.0); MCV 85.9 fL (80.0-100.0); Mean Platelet Volume 6.8; Monocytes # (A) 1.5 k/uL (0-1.0); Monocytes % (A) 10 %; Neutrophils # (A) 12.5 k/uL (1.3-7.7); Neutrophils % (A) 81 %; RBC 5.31 m/uL (4.30-5.90); RDW 14.5 % (11.5-15.5); WBC 15.5 k/uL (3.8-10.6); WBC (Perox) 14.81
[2016-06-13] MEDS: PANTOPRAZOLE 40 MG TABLET PO SCH (06:02)
--- NOTE | 2016-06-13 06:02 | PN ---
DATE OF SERVICE: 06/12/2016 ATTENDING NOTE: This patient was seen and examined by me. Patient is status post right upper and middle lobe lobectomy and chest tube remains in place with an air leak in place. Patient has hardly been eating, been getting his pain medications. Refusing most of his meals. Feeling weak and tired. Has also refused to be out of bed. On examination, afebrile, blood pressure 109/67, pulse ox 96% on room air. On examination, decreased breath. Subcutaneous emphysema can be ( ). PSYCH: Patient lethargic, but arousable. Does answer questions then dozes off. INVESTIGATIONS: White count 18.2, hemoglobin 17.7. Potassium 4.8. ASSESSMENT: 1. Right middle lobe and lower lobe resection for lung cancer including 4 to 8 intercostal cryoblation for pain control. 2. Emphysema in a current smoker. 3. Chronic nicotine dependence. Patient is an active cigarette smoker. 4. Essential hypertension. 5. Gastroesophageal reflux disease. 6. Chronic alcohol dependence. Patient's delirium withdrawal has since resolved. 7. Right pneumothorax, iatrogenic. Chest wall tube remains in place with an air leak still present. 8. Subcutaneous emphysema remains in the right upper chest wall. 9. Anorexia, multifactorial, including excessive pain medications. 10. Element of metabolic encephalopathy from excessive pain medications. PLAN: I had a long talk with the patient. Also spoke to the nurse and aide to encourage the patient to eat. Having to cut back on her pain medication too and this was discussed with the patient. Will have dietitian see the patient and do calorie count and encourage oral intake including using dietary supplements. I reviewed the note of my nurse practitioner and agree with the same.
[2016-06-13 06:07] LABS: INR 1.3 (<1.1); Prothrombin Time 12.6 sec (9.0-12.0)
[2016-06-13 06:16] LABS: ALT 36 U/L (21-72); AST 23 U/L (17-59); Alkaline Phosphatase 65 U/L (38-126); Anion Gap 9 mmol/L; Blood Urea Nitrogen 25 mg/dL (9-20); Calcium 8.8 mg/dL (8.4-10.2); Carbon Dioxide 22 mmol/L (22-30); Chloride 104 mmol/L (98-107); Glucose 114 mg/dL (74-99); Non-African American GFR(MDRD) >60 (>60 ml/min/1.73 sqM); Potassium 3.8 mmol/L (3.5-5.1); Sodium 135 mmol/L (137-145); Total Bilirubin 0.8 mg/dL (0.2-1.3); Total Protein 5.2 g/dL (6.3-8.2)
[2016-06-13 06:23] LABS: Prealbumin 5 mg/dL (18-36)
--- NOTE | 2016-06-13 07:28 | XR ---
EXAMINATION TYPE: XR chest 1V portable DATE OF EXAM: 06/13/2016 7:13 AM HISTORY: Shortness of breath. COMPARISON: 06/12/2016 TECHNIQUE: Single view of the chest is submitted. FINDINGS: Right-sided chest tube is unchanged in position. Persistent right-sided pneumothorax with right apica l component appearing slightly smaller in size. Apical pleural separation measures 2.5 cm versus 4.6 cm previously and right lateral basilar pleural separation measures 2 cm versus 1.9 cm previously. Underlying patchy infiltrate persists. Subcutaneou s air is again noted. There is hyperinflation of the left lung. The heart is stable. Hilar and mediastinal structures are within normal limits. Degenerative changes are seen of the dorsal spine. IMPRESSION: 1. Persistent right-sided pneumothorax with right apical component appearing slightly smaller in siz e.
[2016-06-13] MEDS: ATORVASTATIN 40 MG TAB PO SCH (08:31)
[2016-06-13] MEDS: DILTIAZEM CD 240 MG CAP.ER.24H PO SCH (08:31)
[2016-06-13] MEDS: ASPIRIN 81 MG CHEW PO SCH ×2 (08:31→10:29)
[2016-06-13] MEDS: NICOTINE 21MG/24HR PATCH TRANSDERM SCH (08:31)
[2016-06-13] MEDS: METOPROLOL TARTRATE 50 MG TAB PO SCH ×3 (08:32→20:56)
[2016-06-13] MEDS ORDERED: POTASSIUM CHLORIDE ER 20 MEQ TAB.ER PO SCH ×2 (09:00→14:00)
--- NOTE | 2016-06-13 09:04 | P.PN ---
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 Concerned about possibility of more surgery. Objective - Vital Signs Vital signs: Vital Signs Temp 97 F L 06/13/16 04:00 Pulse 69 06/13/16 04:00 Resp 18 06/13/16 04:00 BP 112/70 06/13/16 04:00 Pulse Ox 96 06/13/16 04:00 Intake & Output 06/12/16 06/13/16 06/13/16 18:59 06:59 18:59 Intake Total 450 750 Output Total 85 545 100 Balance 365 205 -100 Weight 55.2 kg Intake: IV 750 Sodium Chloride 0.9% 1, 750 000 ml @ 75 mls/hr IV . [id number] [facility] Rx#:[id number] Intake, IV Titration 450 Amount Sodium Chloride 0.9% 1, 450 000 ml @ 75 mls/hr IV . [id number] [facility] Rx#:[id number] Output: Chest Tube Drainage 85 155 Chest Tube Right 85 155 Urine 390 100 Other: Voiding Method Urinal Urinal # Voids 1 1 - Constitutional General appearance: Present: cooperative, no acute distress - Respiratory Details: Lungs sounds diminished bilaterally with coarse breath sounds in the right base. Respirations even, nonlabored. Currently on room air with oxygen saturation 96%. Right pleural chest tube to -27 m wall suction, 110 mL serous fluid and overnight, 250 mL the last 24 hours. Positive air leak. - Cardiovascular Details: S1, S2 present. Regular rate and rhythm, normal sinus rhythm on telemetry. - Gastrointestinal Gastrointestinal Comment(s): Abdomen soft, nontender, nondistended. Active bowel sounds 4 quadrants. Currently nothing by mouth until evaluated by Dr. Negron. - Genitourinary Genitourinary Comment(s): Voiding clear, yellow urine. Incontinent at times. - Musculoskeletal Musculoskeletal: Present: gait normal, strength equal bilaterally - Psychiatric Psychiatric: Present: A&O x's 3, appropriate affect, intact judgment & insight - Allied health notes Allied health notes reviewed: nursing - Labs CBC & Chem 7: 06/13/16 05:35 06/13/16 05:35 Labs: Abnormal Lab Results - Last 24 Hours (Table) 06/13/16 06/13/16 06/13/16 Range/Units 03:00 05:35 05:35 WBC 15.5 H (3.8-10.6) k/uL Neutrophils # 12.5 H (1.3-7.7) k/uL Monocytes # 1.5 H (0-1.0) k/uL PT 12.6 H (9.0-12.0) sec Sodium (137-145) mmol/L BUN (9-20) mg/dL Glucose (74-99) mg/dL Total Protein (6.3-8.2) g/dL Albumin (3.5-5.0) g/dL Prealbumin (18-36) mg/dL Urine Ketones Trace H (Negative) 06/13/16 Range/Units 05:35 WBC (3.8-10.6) k/uL Neutrophils # (1.3-7.7) k/uL Monocytes # (0-1.0) k/uL PT (9.0-12.0) sec Sodium 135 L (137-145) mmol/L BUN 25 H (9-20) mg/dL Glucose 114 H (74-99) mg/dL Total Protein 5.2 L (6.3-8.2) g/dL Albumin 2.4 L (3.5-5.0) g/dL Prealbumin 5 L (18-36) mg/dL Urine Ketones (Negative) - Imaging and Cardiology Chest x-ray: report reviewed, image reviewed Assessment and Plan (1) Non-small cell carcinoma of right lung Status: Acute Plan: 1. Encourage patient to be out of bed all day. Increase activity in his room, physical therapy following. 2. Encourage incentive spirometry use. 3. CT to remain on suction. Currently nothing by mouth until evaluated by Dr. Negron. 4. Pain management with ordered medication regimen. 5. Comorbid medical problems to be managed by internal medicine service. Dietitian on consult, calorie count requested as patient is not eating much. 6. Discharge planning in progress, patient will need to go to a facility upon discharge 7. More recommendations as patient progresses. Time with Patient: Greater than 30 <Deny Negron - Last Filed: 06/13/16 09:08> Objective - Vital Signs Vital signs: Vital Signs Temp 97.1 F L 06/13/16 08:39 Pulse 77 06/13/16 08:39 Resp 16 06/13/16 08:42 BP 126/74 06/13/16 08:39 Pulse Ox 94 L 06/13/16 08:39 Intake & Output 06/12/16 06/13/16 06/13/16 18:59 06:59 18:59 Intake Total 450 750 Output Total 85 545 100 Balance 365 205 -100 Weight 55.2 kg Intake: IV 750 Sodium Chloride 0.9% 1, 750 000 ml @ 75 mls/hr IV . [id number] [facility] Rx#:[id number] Intake, IV Titration 450 Amount Sodium Chloride 0.9% 1, 450 000 ml @ 75 mls/hr IV . [id number] [facility] Rx#:[id number] Output: Chest Tube Drainage 85 155 Chest Tube Right 85 155 Urine 390 100 Other: Voiding Method Urinal Urinal Urinal # Voids 1 1 - Labs CBC & Chem 7: 06/13/16 05:35 06/13/16 05:35 Labs: Abnormal Lab Results - Last 24 Hours (Table) 06/13/16 06/13/16 06/13/16 Range/Units 03:00 05:35 05:35 WBC 15.5 H (3.8-10.6) k/uL Neutrophils # 12.5 H (1.3-7.7) k/uL Monocytes # 1.5 H (0-1.0) k/uL PT 12.6 H (9.0-12.0) sec Sodium (137-145) mmol/L BUN (9-20) mg/dL Glucose (74-99) mg/dL Total Protein (6.3-8.2) g/dL Albumin (3.5-5.0) g/dL Prealbumin (18-36) mg/dL Urine Ketones Trace H (Negative) 06/13/16 Range/Units 05:35 WBC (3.8-10.6) k/uL Neutrophils # (1.3-7.7) k/uL Monocytes # (0-1.0) k/uL PT (9.0-12.0) sec Sodium 135 L (137-145) mmol/L BUN 25 H (9-20) mg/dL Glucose 114 H (74-99) mg/dL Total Protein 5.2 L (6.3-8.2) g/dL Albumin 2.4 L (3.5-5.0) g/dL Prealbumin 5 L (18-36) mg/dL Urine Ketones (Negative) Assessment and Plan Plan: Discuss PEG tube placemant with pulmonary medicine for nutritional support.
[2016-06-13] MEDS: IPRATROPIUM-ALBUTEROL 3 ML NEB IH SCH ×4 (09:05→20:08)
[2016-06-13] MEDS: HYDROCHLOROTHIAZIDE 25 MG TAB PO SCH (10:29)
[2016-06-13] MEDS: HEPARIN SODIUM,PORCINE 5,000 UNIT/ML 1 ML VIAL SQ SCH ×2 (10:29→20:56)
[2016-06-13] MEDS: MEGESTROL 400 MG/10 ML CUP PO SCH (10:29)
--- NOTE | 2016-06-13 12:51 | P.CONS ---
History of Present Illness - Reason for Consult Consult date: 06/13/16 Leukocytosis - History of Present Illness This is a 71-year-old male recently diagnosed with squamous carcinoma of the right lower lobe. Patient apparently presented while in assisted with hemoptysis and workup occurred from there after he was released from assisted he underwent workup. Chest x-ray in February showed a large right lower lobe mass. PET scan showed no evidence of metastasis. Bronchoscopy was positive for squamous carcinoma. 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 He was admitted on 05/27/2016 underwent right thoracotomy, right lower and middle lobectomy, mediastinal lymph node dissection, cryo-ablation of intercostal nerves IV through VIII. It appears the patient was progressing as expected until around 05/30 and patient developed moderate right upper lobe pneumothorax with extensive subcutaneous emphysema his O2 saturation was well maintained. By June 10 he had complete reexpansion and subsequently developed some prerenal azotemia which have subsequently stabilized. Patient has had increased weakness in very poor oral intake and is followed by dietitian. Patient was seen while he is in bed. He denies any shortness of breath but is not doing much walking. He states he tires very quickly. Regarding his appetite, he states his senna cc food he loses his appetite. He denies any vomiting, diarrhea. He denies dysuria. He states his pain is about 9-10/10 all the time and does not seem to be improved with medications. Regarding leukocytosis, white count has been consistently elevated since June 07 with peak at 18.2 on June 12. He is slightly improved today at 15.5. He has been afebrile during this hospitalization. Patient was on cefazolin during the perioperative period but none since that time. He has been started on Megace for appetite. His weight has decreased by 6 kg since arch of this year. There has been concern for need of PEG tube. Prealbumin is only 5. His most recent chest x-ray is showing persistent right pneumothorax with right apical component appearing slightly smaller. Urinalysis done on June 13 was clear, nitrite and leukoesterase negative. Review of Systems All systems: negative Constitutional: Reports anorexia, Reports fatigue, Reports poor appetite, Reports weakness, Reports weight loss, Denies chills, Denies fever Eyes: denies blurred vision, denies pain Ears, nose, mouth and throat: Denies headache, Denies sore throat Cardiovascular: Reports chest pain, Denies shortness of breath Respiratory: Denies cough Gastrointestinal: Reports loss of appetite, Reports nausea, Denies abdominal pain, Denies diarrhea, Denies vomiting Musculoskeletal: Denies myalgias Integumentary: Denies pruritus, Denies rash Neurological: Denies numbness, Denies weakness Psychiatric: Denies anxiety, Denies depression Endocrine: Reports weight change, Denies fatigue Past Medical History Past Medical History: Cancer, Heart Failure, CVA/TIA, GERD/Reflux, Hypertension Additional Past Medical History / Comment(s): CVA in 1999 with left-sided residual weakness, non-small cell lung cancer status post right thoracotomy, right lower and middle lobectomies. History of Any Multi-Drug Resistant Organisms: None Reported Past Surgical History: No Surgical Hx Reported Additional Past Surgical History / Comment(s): bronchoscopy Past Anesthesia/Blood Transfusion Reactions: No Reported Reaction Additional Past Anesthesia/Blood Transfusion Reaction / Comm: unknown anesthesia and family hx Past Psychological History: No Psychological Hx Reported Smoking Status: Former smoker Past Alcohol Use History: Daily Additional Past Alcohol Use History / Comment(s): down to 3/4ppd, has smoked for 50 yrs., drinks 1/2 pint Black daily. He lives at home with his daughter. There is 1 dog in the home. He has recently been incarcerated. Past Drug Use History: None Reported - Past Family History Father History Unknown: Yes Mother History Unknown: Yes Medications and Allergies Home Medications Medication Instructions Recorded Confirmed Type Diltiazem HCl [Diltiazem 24Hr ER] 180 mg PO QAM 05/21/14 05/27/16 History Omeprazole 20 mg PO QAM 05/21/14 05/27/16 History Hydrochlorothiazide 25 mg PO DAILY 04/18/16 05/27/16 History HYDROcodone/APAP 7.5-325MG [[place] 1 tab PO Q6HR PRN 05/23/16 05/27/16 History 7.5-325] Labetalol [Trandate] 200 mg PO DAILY 05/27/16 05/27/16 History Allergies Allergy/AdvReac Type Severity Reaction Status Date / Time No Known Allergies Allergy Verified 05/27/16 17:02 Physical Exam Vitals: Vital Signs Temp Pulse Pulse Pulse Resp BP BP 06/13/16 09:16 90 06/13/16 09:05 90 06/13/16 08:42 16 06/13/16 08:39 97.1 F L 77 16 126/74 06/13/16 04:00 97 F L 69 69 18 112/70 06/13/16 00:00 98.2 F 74 74 18 122/70 06/12/16 20:29 100 06/12/16 20:19 98 06/12/16 20:00 97.9 F 84 84 18 121/65 06/12/16 16:13 97.9 F 71 18 109/67 06/12/16 12:05 101 H 06/12/16 11:58 101 H 06/12/16 11:49 97.9 F 74 18 96/83 Pulse Ox 06/13/16 09:16 06/13/16 09:05 06/13/16 08:42 06/13/16 08:39 94 L 06/13/16 04:00 96 06/13/16 00:00 97 06/12/16 20:29 06/12/16 20:19 06/12/16 20:00 96 06/12/16 16:13 96 06/12/16 12:05 06/12/16 11:58 06/12/16 11:49 94 L Intake and Output 06/12/16 06/13/16 06/13/16 22:59 06:59 14:59 Intake Total 750 Output Total 240 310 100 Balance -240 440 -100 Intake: IV 750 Sodium Chloride 0.9% 1, 750 000 ml @ 75 mls/hr IV . [id number] [facility] Rx#:[id number] Output: Chest Tube Drainage 50 110 Chest Tube Right 50 110 Urine 190 200 100 Other: Voiding Method Urinal Urinal Urinal # Voids 1 1 1 Weight 55.2 kg Gen: This is a 71-year-old thin -[place] male area and he is laying in bed and appears to be in no acute distress. HEENT: Head is atraumatic, normocephalic. Pupils equal, round. Sclerae is anicteric. NECK: Supple. No JVD. No lymphadenopathy. LUNGS: Few crackles on the right side. Chest tube to the right chest wall. Dressing in place over chest incision. No intercostal retractions. HEART: Regular rate and rhythm. No murmur. ABDOMEN: Soft. Bowel sounds are present. No masses. No tenderness. EXTREMITIES: No pedal edema. No calf tenderness. NEUROLOGICAL: Patient is awake, alert and oriented x3. Cranial nerves 2 through 12 are grossly intact. Results CBC & Chem 7: 06/14/16 06:06 06/14/16 06:06 Labs: Abnormal Lab Results - Last 24 Hours (Table) 06/13/16 06/13/16 06/13/16 Range/Units 03:00 05:35 05:35 WBC 15.5 H (3.8-10.6) k/uL Neutrophils # 12.5 H (1.3-7.7) k/uL Monocytes # 1.5 H (0-1.0) k/uL PT 12.6 H (9.0-12.0) sec Sodium (137-145) mmol/L BUN (9-20) mg/dL Glucose (74-99) mg/dL Total Protein (6.3-8.2) g/dL Albumin (3.5-5.0) g/dL Prealbumin (18-36) mg/dL Urine Ketones Trace H (Negative) 06/13/16 Range/Units 05:35 WBC (3.8-10.6) k/uL Neutrophils # (1.3-7.7) k/uL Monocytes # (0-1.0) k/uL PT (9.0-12.0) sec Sodium 135 L (137-145) mmol/L BUN 25 H (9-20) mg/dL Glucose 114 H (74-99) mg/dL Total Protein 5.2 L (6.3-8.2) g/dL Albumin 2.4 L (3.5-5.0) g/dL Prealbumin 5 L (18-36) mg/dL Urine Ketones (Negative) Assessment and Plan Plan: This is a 71-year-old male who was recently diagnosed with non-small cell lung cancer status post right thoracotomy, right lower and middle lobectomies. His postop course has been complicated with pneumothorax, severe protein calorie malnutrition with weight loss. He has developed leukocytosis with no clear source of infection. He is not on antibiotics at this time. Patient will require good nutrition in order to heal. Continue supportive care. Further recommendations as patient progresses. The above dictated assessment and findings were discussed with Dr. Spears. The impression and plan of care have been directed as dictated. Francesca Lester nurse practitioner acting as scribe for Dr. Spears. Time with Patient: Greater than 30
[2016-06-13] MEDS: HYDROcodone/APAP 5-325MG 1 EACH TAB PO PRN ×3 (14:42→22:51)
--- NOTE | 2016-06-13 15:34 | P.GSCN ---
History of Present Illness Consult date: 06/13/16 Reason for Consult: PEG tube placement Requesting physician: Deny Negron History of present illness: The patient is a 69-year-old gentleman history of squamous cell cancer. He status post lobectomy of the right lung. He has been in the hospital secondary to his persistent pneumothorax. Per discussion with nursing, he has poor oral intake. Secondary to his adequate protein intake and protein malnutrition he has poorly healing wounds. Gen. surgery is consulted for placement of feeding tube. Review of Systems CONSTITUTIONAL: Denies any fever or chills. He is underweight, BMI less than 18. HEENT: Denies any trouble with vision, hearing or nosebleeds. No difficulty swallowing. LYMPHATIC: The patient denies any lumps and bumps around the neck. ENDOCRINE: Denies any thyroid disorders. Denies any blood sugar glucose intolerance. RESPIRATORY: History of squamous CANCER of the lungs status post resection with lobectomy. CARDIOVASCULAR: Has history of cardiac arrhythmia. Also history of hypertension and hyperlipidemia. GASTROINTESTINAL: Has reflux disease. Denies abdominal pain. GENITOURINARY: Denies any blood in urine or increased urinary frequency. MUSCULOSKELETAL: Has back pain, stiffness, joint arthritis. NEUROLOGIC: Denies any numbness or tingling along the distal extremities. No seizure disorders or headaches. PSYCHIATRIC: Denies depression or suidical ideation. HEMATOLOGIC: Denies any abnormal bleeding or bruising. Past Medical History Past Medical History: Cancer, Heart Failure, CVA/TIA, GERD/Reflux, Hypertension Additional Past Medical History / Comment(s): CVA in 1999 with left-sided residual weakness, non-small cell lung cancer status post right thoracotomy, right lower and middle lobectomies. History of Any Multi-Drug Resistant Organisms: None Reported Past Surgical History: No Surgical Hx Reported Additional Past Surgical History / Comment(s): bronchoscopy Past Anesthesia/Blood Transfusion Reactions: No Reported Reaction Additional Past Anesthesia/Blood Transfusion Reaction / Comm: unknown anesthesia and family hx Past Psychological History: No Psychological Hx Reported Smoking Status: Former smoker Past Alcohol Use History: Daily Additional Past Alcohol Use History / Comment(s): down to 3/4ppd, has smoked for 50 yrs., drinks 1/2 pint Black daily. He lives at home with his daughter. There is 1 dog in the home. He has recently been incarcerated. Past Drug Use History: None Reported - Past Family History Father History Unknown: Yes Mother History Unknown: Yes Medications and Allergies Home Medications Medication Instructions Recorded Confirmed Type Diltiazem HCl [Diltiazem 24Hr ER] 180 mg PO QAM 05/21/14 05/27/16 History Omeprazole 20 mg PO QAM 05/21/14 05/27/16 History Hydrochlorothiazide 25 mg PO DAILY 04/18/16 05/27/16 History HYDROcodone/APAP 7.5-325MG [[place] 1 tab PO Q6HR PRN 05/23/16 05/27/16 History 7.5-325] Labetalol [Trandate] 200 mg PO DAILY 05/27/16 05/27/16 History Allergies Allergy/AdvReac Type Severity Reaction Status Date / Time No Known Allergies Allergy Verified 05/27/16 17:02 Surgical - Exam Vital Signs Temp Pulse Resp BP Pulse Ox 97.9 F 66 16 173/85 96 05/27/16 09:02 05/27/16 09:02 05/27/16 09:02 05/27/16 09:02 05/27/16 09:02 GENERAL: Well developed and in no acute distress. Pleasant. He is cachectic in appearance. HEENT: No sclera icterus. Extraocular movements grossly intact. Moist buccal mucosa. Head is atraumatic, normocephalic. Hears conversational speech. No nasal drainage. NECK: Supple without lymphadenopathy. No JV distention. CHEST: Non-labored respirations and equal bilateral excursions. Right chest tube present. CARDIOVASCULAR: Regular rate and rhythm. Palpable 2+ radial pulses. ABDOMEN: Soft, nontender. Nondistended. MUSCULOSKELETAL: No clubbing, cyanosis or edema. NEUROLOGIC: No focal or lateralizing signs. PSYCH: Appropriate affect. Alert and oriented to person, place and time. Results - Labs 06/13/16 05:35 06/13/16 11:45 Abnormal Lab Results - Last 24 Hours (Table) 06/13/16 06/13/16 06/13/16 Range/Units 03:00 05:35 05:35 WBC 15.5 H (3.8-10.6) k/uL Neutrophils # 12.5 H (1.3-7.7) k/uL Monocytes # 1.5 H (0-1.0) k/uL PT 12.6 H (9.0-12.0) sec Sodium (137-145) mmol/L BUN (9-20) mg/dL Glucose (74-99) mg/dL Total Protein (6.3-8.2) g/dL Albumin (3.5-5.0) g/dL Prealbumin (18-36) mg/dL Urine Ketones Trace H (Negative) 06/13/16 Range/Units 05:35 WBC (3.8-10.6) k/uL Neutrophils # (1.3-7.7) k/uL Monocytes # (0-1.0) k/uL PT (9.0-12.0) sec Sodium 135 L (137-145) mmol/L BUN 25 H (9-20) mg/dL Glucose 114 H (74-99) mg/dL Total Protein 5.2 L (6.3-8.2) g/dL Albumin 2.4 L (3.5-5.0) g/dL Prealbumin 5 L (18-36) mg/dL Urine Ketones (Negative) Microbiology - Last 24 Hours (Table) 06/13/16 03:00 Urine Culture - Preliminary Urine,Clean Catch Diabetes panel 06/13/16 06/13/16 Range/Units 05:35 11:45 Sodium 135 L (137-145) mmol/L Potassium 3.8 3.8 (3.5-5.1) mmol/L Chloride 104 (98-107) mmol/L Carbon Dioxide 22 (22-30) mmol/L BUN 25 H (9-20) mg/dL Creatinine 0.80 (0.66-1.25) mg/dL Glucose 114 H (74-99) mg/dL Calcium 8.8 (8.4-10.2) mg/dL AST 23 (17-59) U/L ALT 36 (21-72) U/L Alkaline Phosphatase 65 (38-126) U/L Total Protein 5.2 L (6.3-8.2) g/dL Albumin 2.4 L (3.5-5.0) g/dL Calcium panel 06/13/16 Range/Units 05:35 Calcium 8.8 (8.4-10.2) mg/dL Albumin 2.4 L (3.5-5.0) g/dL Pituitary panel 06/13/16 06/13/16 Range/Units 05:35 11:45 Sodium 135 L (137-145) mmol/L Potassium 3.8 3.8 (3.5-5.1) mmol/L Chloride 104 (98-107) mmol/L Carbon Dioxide 22 (22-30) mmol/L BUN 25 H (9-20) mg/dL Creatinine 0.80 (0.66-1.25) mg/dL Glucose 114 H (74-99) mg/dL Calcium 8.8 (8.4-10.2) mg/dL Adrenal panel 06/13/16 06/13/16 Range/Units 05:35 11:45 Sodium 135 L (137-145) mmol/L Potassium 3.8 3.8 (3.5-5.1) mmol/L Chloride 104 (98-107) mmol/L Carbon Dioxide 22 (22-30) mmol/L BUN 25 H (9-20) mg/dL Creatinine 0.80 (0.66-1.25) mg/dL Glucose 114 H (74-99) mg/dL Calcium 8.8 (8.4-10.2) mg/dL Total Bilirubin 0.8 (0.2-1.3) mg/dL AST 23 (17-59) U/L ALT 36 (21-72) U/L Alkaline Phosphatase 65 (38-126) U/L Total Protein 5.2 L (6.3-8.2) g/dL Albumin 2.4 L (3.5-5.0) g/dL - Imaging Chest x-ray: report reviewed, image reviewed Assessment and Plan (1) Inadequate dietary intake of protein Status: Acute (2) Hypoalbuminemia due to protein-calorie malnutrition Status: Acute (3) Squamous cell carcinoma of lung Status: Acute (4) Malignant cachexia Status: Acute (5) Anorexia Status: Acute Plan: 1. I reviewed his medications and he has been placed on Megace with minimal improvement of his appetite. 2. Alternatives including Marinol to stimulate his appetite was also reviewed with the patient however he declined. 3. I discussed with him the benefits and risks of a PEG tube placement including feasibility of removal once his appetite has improved which he demonstrated understanding. 4. The patient wished to discuss surgical intervention alongside with his daughter and family. We'll proceed with PEG tube placement tentatively in 48 hours on Monday. The care plan has been discussed with the patient's nurse as well. Thank you very much for allowing me to participate in the care of your patient.
--- NOTE | 2016-06-13 16:06 | PN ---
This is a 71-year-old white male, postoperative day #17, status post right middle and right lower lobectomy for squamous cell carcinoma of the lung. The patient has been here in the hospital for quite some time. The issues relate to poor nutrition, the initial surgery, and also the persistent air leak on the right side. The patient has a history of chronic and ongoing tobacco use, hypertension, GERD, chest wall pain. Dr. Negron asked me about nutrition. I thought a PEG tube would be in order. I did speak to the patient about that. He was thinking about doing bronchoscopy but has decided against it. Today's chest x-ray shows a persistent right-sided pneumothorax, although smaller in size. Current vital signs include temperature 97.1, heart rate 77, respiratory rate 16, blood pressure 126/74, mean 91, room-air saturation 94%. He appears in no acute distress. HEENT examination is grossly unremarkable. Mucous membranes moist. No oral lesions. Neck is supple. Full range of motion. No adenopathy, thyromegaly or neck vein distention. Cardiovascular examination reveals regular rhythm and rate. S1, S2 normal. No S3, S4 or murmur. Lungs reveal diminished breath sounds, particularly on the right side. A few scattered rhonchi. No wheezes or crackles. ABDOMEN: Soft. Bowel sounds are heard. EXTREMITIES: Intact. Labs are reviewed. White count 15.5, hemoglobin 15, hematocrit 45.7, platelet count 423,000. PT and INR are 12.6 and 1.3. Sodium 135, potassium 3.8, chloride 104, CO2 of 22. BUN and creatinine were 25 and 0.8. The rest of the labs look okay. Chest x-ray is reviewed. Medications are reviewed. ASSESSMENT: 1. Postoperative day #17, status post right middle and right lower lobectomy for squamous cell carcinoma, T2b N0 M0. 2. Persistent right-sided air leak. 3. Chronic and ongoing tobacco dependence. 4. Hypertension. 5. Gastroesophageal reflux disease. 6. Chest wall pain. PLAN: Medications are reviewed. Will continue to follow. No additional recommendations are made. I do recommend PEG tube placement for nutrition. Will continue to follow.
--- NOTE | 2016-06-13 21:56 | P.CON ---
Consult Note - . 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 Patient apparently presented while in skilled nursing with hemoptysis and workup occurred from there after he was released from skilled nursing he underwent workup. Chest x-ray in February showed a large right lower lobe mass. PET scan showed no evidence of metastasis. Bronchoscopy was positive for squamous carcinoma. 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 He was admitted on 05/27/2016 underwent right thoracotomy, right lower and middle lobectomy, mediastinal lymph node dissection, cryo-ablation of intercostal nerves IV through VIII. It appears the patient was progressing as expected until around 05/30 and patient developed moderate right upper lobe pneumothorax with extensive subcutaneous emphysema his O2 saturation was well maintained. By June 10 he had complete reexpansion and subsequently developed some prerenal azotemia which have subsequently stabilized. Patient has had increased weakness in very poor oral intake and is followed by dietitian. Patient was seen while he is in bed. He denies any shortness of breath but is not doing much walking. He states he tires very quickly. Regarding his appetite, he states his senna cc food he loses his appetite. He denies any vomiting, diarrhea. He denies dysuria. He states his pain is about 9-10/10 all the time and does not seem to be improved with medications. Regarding leukocytosis, white count has been consistently elevated since June 07 with peak at 18.2 on June 12. He is slightly improved today at 15.5. He has been afebrile during this hospitalization. Patient was on cefazolin during the perioperative period but none since that time. He has been started on Megace for appetite. His weight has decreased by 6 kg since arch of this year. There has been concern for need of PEG tube. Prealbumin is only 5. His most recent chest x-ray is showing persistent right pneumothorax with right apical component appearing slightly smaller. Urinalysis done on June 13 was clear, nitrite and leukoesterase negative. Please see the consult note is dictated by nurse practitioner Mrs. Francesca Lester. Patient relates he is feeling slightly better. He is attempting to eat. He is going slow so he doesn't have a difficulty with nausea and emesis. Daily yogurt for me. He has evidence of the squamous cell carcinoma the lung with the recent extensive surgical intervention was some ongoing air leak. The leukocytosis appears to be reactive. The patient does not appear to be acutely infected at this point in time. It appears in the last it is actually been some improvement of his status possibly related to his increasing food intake. Patient is again educated on the significant importance of his protein intake. And hopefully will have some further success. As noted his overall prognosis is quite poor.I agree with evaluation, assessment and plan as dictated by nurse practitioner Mrs. Francesca Lester.
--- NOTE | 2016-06-13 21:56 | PN ---
DATE OF SERVICE: 06/13/2016 PRESENTING COMPLAINT: Right partial lobectomy. INTERVAL HISTORY: This is a 71-year-old male who is status post right middle and lower lobectomy. Right chest wall chest tube remains in place with positive air leak. Patient continues to complain of low to no appetite. States nothing tastes good to him. Patient is sitting up in bed, awake, alert. Patient also continues to complain of weakness, feeling tired. Continues to refuse eating. Review of systems for constitutional, cardiovascular, gastrointestinal, pulmonary: relevant findings as above. CURRENT MEDICATIONS: 1. [place]. 2. DuoNeb. 3. Aspirin. 4. Atorvastatin. 5. Bisacodyl. 6. Diltiazem. 7. Haloperidol. 8. Heparin. 9. Hydrochlorothiazide. 10. Loratadine. 11. Metoclopramide. 12. Metoprolol. 13. Habitrol patch. 14. Pantoprazole. PHYSICAL EXAMINATION: VITAL SIGNS: Temperature 97.1, pulse 90, respiratory rate 16, blood pressure 126/74, oxygen saturation 94% on room air. INVESTIGATIONS: White blood cell count 15.5, down from 18.2 on 06/12/16. Sodium 135. Glucose 114. Chest x-ray dated 06/13/2016 reveals persistent right-sided pneumothorax with apical component, appearing slightly smaller in size. ASSESSMENT: 1. Right middle lobe and lower lobe resection for lung cancer, including 4 to 8 cryoablation for pain control. 2. Emphysema in a current smoker. 3. Chronic nicotine dependence. Patient is an active cigarette smoker. 4. Essential hypertension. 5. Gastroesophageal reflux disease. 6. Chronic alcohol dependence. Patient's delirium withdrawal has since resolved. 7. Right pneumothorax, iatrogenic. Chest wall tube remains in place with an air leak still present. 8. Subcutaneous emphysema remains in the right upper chest wall. 9. Anorexia, multifactorial, including excessive pain medication. 10. Element of metabolic encephalopathy from excessive pain medication. PLAN: Continue to mobilize patient, getting patient up daily in the chair for meals. Nursing has been instructed to encourage the patient to eat at mealtimes; someone is to sit with the patient. Nutrition consult has been placed and a calorie count has been requested. Will continue to encourage oral intake using dietary supplements.
[2016-06-14] MEDS: BISACODYL 5 MG TABLET.DR PO PRN (00:01)
[2016-06-14] MEDS: ONDANSETRON 4 MG/2 ML VIAL IVP PRN (01:26)
[2016-06-14] MEDS: PANTOPRAZOLE 40 MG TABLET PO SCH (06:22)
[2016-06-14] MEDS: SODIUM CHLORIDE 0.9% 1,000 ML IV SCH ×2 (06:23→18:01)
[2016-06-14] MEDS: HYDROcodone/APAP 5-325MG 1 EACH TAB PO PRN ×4 (06:28→19:44)
[2016-06-14 06:42] LABS: CH 28.9; CHCM 33.1; HCT 49.5 % (39.0-53.0); HGB 15.8 gm/dL (13.0-17.5); MCH 28.1 pg (25.0-35.0); MCV 87.9 fL (80.0-100.0); RBC 5.63 m/uL (4.30-5.90); RDW 14.6 % (11.5-15.5); WBC 16.9 k/uL (3.8-10.6)
[2016-06-14 06:57] LABS: Anion Gap 12 mmol/L; Blood Urea Nitrogen 21 mg/dL (9-20); Calcium 9.1 mg/dL (8.4-10.2); Carbon Dioxide 22 mmol/L (22-30); Chloride 105 mmol/L (98-107); Glucose 103 mg/dL (74-99); Non-African American GFR(MDRD) >60 (>60 ml/min/1.73 sqM); Potassium 4.1 mmol/L (3.5-5.1); Sodium 139 mmol/L (137-145)
--- NOTE | 2016-06-14 08:04 | PN ---
DATE OF SERVICE: 06/13/2016 ATTENDING NOTE: This patient was seen and examined by me. I reviewed the notes on nurse practitioner, Ms. Rivera and agree with the same except for the changes below. The patient is sitting up in bed, more awake today, getting less pain medications. Did eat a little bit. Chest tube remains in place. On examination, decreased breath sounds on right side. Subcutaneous emphysema is present. CARDIOVASCULAR: First and second sounds normal. PSYCH: Alert and oriented x3. Mood and affect improved. INVESTIGATIONS: White count 15.5. Potassium 3.8. BUN 25, creatinine 0.8. Prealbumin is 5. ASSESSMENT: 1. Right pneumothorax iatrogenic. Chest tube remains in place with air leak present. 2. Anorexia, multifactorial including excessive pain medication. 3. Metabolic encephalopathy from excessive pain medication actually improved as pain medication has been cut back. 4. Moderate protein calorie malnutrition from decreased oral intake with decreased muscle mass and a body mass index of 17.5. PLAN: Continue current medication and treatment plan. Patient ( ) increase her oral intake. Memorandum Statement Clerk has been consulted. I did speak to Don from cardiothoracic about cutting back on the pain medications. IV pain medications have been discontinued.
[2016-06-14] MEDS: KETOROLAC 30 MG/ML 1 ML VIAL IVP SCH ×3 (08:18→18:00)
[2016-06-14] MEDS: MEGESTROL 400 MG/10 ML CUP PO SCH (08:19)
[2016-06-14] MEDS: METOPROLOL TARTRATE 50 MG TAB PO SCH ×3 (08:19→21:04)
[2016-06-14] MEDS: BISACODYL 10 MG SUPP RECTAL SCH (08:19)
[2016-06-14] MEDS: NICOTINE 21MG/24HR PATCH TRANSDERM SCH (08:19)
[2016-06-14] MEDS: DILTIAZEM CD 240 MG CAP.ER.24H PO SCH (08:20)
[2016-06-14] MEDS: HEPARIN SODIUM,PORCINE 5,000 UNIT/ML 1 ML VIAL SQ SCH ×2 (08:20→21:05)
[2016-06-14] MEDS: ATORVASTATIN 40 MG TAB PO SCH (08:20)
[2016-06-14] MEDS: ASPIRIN 81 MG CHEW PO SCH (08:20)
[2016-06-14] MEDS: HYDROCHLOROTHIAZIDE 25 MG TAB PO SCH (08:20)
--- NOTE | 2016-06-14 08:25 | XR ---
EXAMINATION TYPE: XR chest 1V portable DATE OF EXAM: 06/14/2016 7:32 AM Comparison: 06/13/2016 Clinical History: 71-year-old male Postop right middle and lower lobectomy Findings: Similar volume loss within the right hemithorax is status post partial right-sided pneumonectomy. Hea rt is normal size. Mild elongation of the thoracic aorta. Left lung and pleural space appear clear. T here is small right-sided pleural effusion seen as a meniscus at the right costophrenic angle. Patchy interstitial densities similar within the right lung but redemonstrated pneumothorax. This is simila r to minimally smaller at the apex now measuring 2.2 cm away from the apical margin versus 2.5 cm, pr eviously. This is also slightly smaller at the peripheral right base measuring 1.6 cm from the thorac ic wall margin versus 2.0 cm, previously. Surgical clips at the hilum. Right-sided chest tube remains in place with extensive subcutaneous emphysema. Impression: Partial right pneumonectomy with continued right-sided pneumothorax. The apical component is minimall y smaller. The basilar component is slightly smaller as well. Hydropneumothorax component.
[2016-06-14] MEDS: IPRATROPIUM-ALBUTEROL 3 ML NEB IH SCH ×4 (09:09→20:26)
[2016-06-14] MEDS: MAGNESIUM SULFATE-D5W PMX 1 GM in DEXTROSE/WATER 1 100ML.BAG IVPB SCH ×2 (09:47→10:40)
--- NOTE | 2016-06-14 10:42 | P.PN ---
Progress Note - Text [facility] Surgery Nursing Principal diagnosis: Non-small cell carcinoma right lower lobe of the lung POD #18 right thoracotomy, right lower and middle lobectomy, mediastinal lymph node dissection, cryoablation of intercostal nerves IV through VIII Patient awake and alert, no distress noted, is complaining of occasional episodes of incontinence. He is sitting up to the bedside. Vital Signs: Afebrile Vital Signs - 24 hr 06/13/16 06/13/16 06/13/16 08:39 08:42 09:05 Temperature 97.1 F L Pulse Rate 90 Pulse Rate [ Shank Carrier ] Pulse Rate [ Post-Activity] Pulse Rate [ 77 Pulse Oximetery ] Respiratory 16 16 Rate Blood Pressure 126/74 [Left Arm] O2 Sat by Pulse 94 L Oximetry O2 Sat by Pulse Oximetry [Post -Activity] 06/13/16 06/13/16 06/13/16 09:16 11:20 11:47 Temperature Pulse Rate 90 Pulse Rate [ 71 Shank Carrier ] Pulse Rate [ 88 Post-Activity] Pulse Rate [ Pulse Oximetery ] Respiratory 16 Rate Blood Pressure 105/63 [Left Arm] O2 Sat by Pulse 95 Oximetry O2 Sat by Pulse 94 L Oximetry [Post -Activity] 06/13/16 06/13/16 06/13/16 12:13 12:23 15:36 Temperature 96.7 F L Pulse Rate 92 94 Pulse Rate [ 75 Shank Carrier ] Pulse Rate [ Post-Activity] Pulse Rate [ Pulse Oximetery ] Respiratory 16 Rate Blood Pressure 111/63 [Left Arm] O2 Sat by Pulse 95 Oximetry O2 Sat by Pulse Oximetry [Post -Activity] 06/13/16 06/13/16 06/13/16 15:40 16:00 16:10 Temperature Pulse Rate 80 90 Pulse Rate [ [place] ] Pulse Rate [ Post-Activity] Pulse Rate [ Pulse Oximetery ] Respiratory 16 Rate Blood Pressure [Left Arm] O2 Sat by Pulse Oximetry O2 Sat by Pulse Oximetry [Post -Activity] 06/13/16 06/13/16 06/14/16 20:00 23:27 03:03 Temperature 97.1 F L 96.9 F L 97.9 F Pulse Rate Pulse Rate [ 69 72 70 Shank Carrier ] Pulse Rate [ Post-Activity] Pulse Rate [ Pulse Oximetery ] Respiratory 19 16 17 Rate Blood Pressure 107/68 118/70 122/72 [Left Arm] O2 Sat by Pulse 96 98 94 L Oximetry O2 Sat by Pulse Oximetry [Post -Activity] Labs: Short CBC 06/14/16 Range/Units 06:06 WBC 16.9 H (3.8-10.6) k/uL Hgb 15.8 (13.0-17.5) gm/dL Hct 49.5 (39.0-53.0) % Plt Count 432 (150-450) k/uL BMP 06/13/16 06/13/16 06/14/16 11:45 17:43 06:06 Sodium 139 Potassium 3.8 4.3 4.1 Chloride 105 Carbon Dioxide 22 BUN 21 H Creatinine 0.80 Glucose 103 H Calcium 9.1 Microbiology 06/13/16 03:00 Urine,Clean Catch Urine Culture - Preliminary IV Fluids: 0.9% normal saline at 75 mL per hour. Lungs: Expiratory wheezes scattered throughout, diminished bilateral bases, right greater than left. Respirations are symmetrical and unlabored. Positive subcu emphysema to his right chest. O2 sat: 94% on room air. I/S: 7334-8026 mL, reviewed with the patient important of using his incentive spirometry every hour while awake. The patient did give a good return demonstration on his incentive spirometry but will need coaching and encouragement to use the incentive spirometry. Heart: S1S2, regular rhythm and rate, positive systolic murmur heard best over the second intercostal space right sternal border. Remote telemetry showing normal sinus rhythm heart rate 80. Right chest incision clean dry and well approximated. No drainage noted. Dressing dry and intact. Abdomen: Soft, Positive hypoactive bowel sounds present in all 4 quadrants. Denies bowel movement but states he is passing gas. U/O: Adequate, patient is complaining that he has occasional episodes of incontinence. Chest Tubes: Right pleural chest tube intact, continuous air leak. Draining thin serous drainage. 30 mL output in the last 8 hours, 320 mL output in the last 24 hours. 24 hr Total: Intake & Output 06/12/16 06/13/16 06/14/16 06/15/16 06:59 06:59 06:59 06:59 Intake Total 825 1200 1680 Output Total 8607 540 6521 Balance -755 570 80 Weight 55.5 kg 55.2 kg 56.5 kg Active Medications Hydrocodone Bitart/Acetaminophen ([place] 5-325) 1 each PO Q4HR PRN PRN Reason: Moderate Pain Last Admin: 06/14/16 06:28 Dose: 1 each Albuterol/Ipratropium (Duoneb 0.5 Mg-3 Mg/3 Ml Soln) 3 ml IH RT-Q1H PRN PRN Reason: Shortness Of Breath Or Wheezing Albuterol/Ipratropium (Duoneb 0.5 Mg-3 Mg/3 Ml Soln) 3 ml IH RT-QID [facility] Last Admin: 06/13/16 20:08 Dose: Not Given Aspirin (Aspirin) 81 mg PO DAILY [facility] Last Admin: 06/13/16 10:29 Dose: 81 mg Atorvastatin Calcium (Lipitor) 40 mg PO DAILY [facility] Last Admin: 06/13/16 08:31 Dose: 40 mg Bisacodyl (Dulcolax) 10 mg RECTAL DAILY PRN PRN Reason: Constipation Bisacodyl (Dulcolax) 10 mg PO DAILY PRN PRN Reason: Constipation Last Admin: 06/14/16 00:01 Dose: 10 mg Diltiazem HCl (Cardizem Cd) 240 mg PO DAILY [facility] Last Admin: 06/13/16 08:31 Dose: 240 mg Heparin Sodium (Porcine) (Heparin) 5,000 unit SQ Q12HR [facility] Last Admin: 06/13/16 20:56 Dose: 5,000 unit Hydrochlorothiazide (Hydrodiuril) 25 mg PO DAILY [facility] Last Admin: 06/13/16 10:29 Dose: 25 mg Sodium Chloride (Saline 0.9%) 1,000 mls @ 75 mls/hr IV .[id number] [facility] Last Admin: 06/14/16 06:23 Dose: 75 mls/hr Loratadine (Claritin) 5 mg PO Q12HR PRN PRN Reason: Allergy Symptoms Last Admin: 05/29/16 17:53 Dose: 5 mg Megestrol Acetate (Megace) 400 mg PO DAILY [facility] Last Admin: 06/13/16 10:29 Dose: 400 mg Metoclopramide HCl (Reglan) 5 mg IVP Q4HR PRN PRN Reason: Nausea And Vomiting Metoprolol Tartrate (Lopressor) 50 mg PO TID [facility] Last Admin: 06/13/16 20:56 Dose: 50 mg Miscellaneous Information (Magnesium Per Protocol) 1 each MISCELLANE DAILY PRN ; Protocol PRN Reason: Per Protocol Miscellaneous Information (Potassium Per Protocol) 1 each MISCELLANE DAILY PRN ; Protocol PRN Reason: Per Protocol Miscellaneous Information (Magnesium Per Protocol) 1 each MISCELLANE DAILY PRN ; Protocol PRN Reason: Per Protocol Miscellaneous Information (Magnesium Per Protocol) 1 each MISCELLANE DAILY PRN ; Protocol PRN Reason: Per Protocol Nicotine (Habitrol 21mg/24hr Patch) 1 patch TRANSDERM DAILY [facility] Last Admin: 06/13/16 08:31 Dose: 1 patch Nicotine Polacrilex (Nicorette Gum) 2 mg BUCCAL Q4HR PRN PRN Reason: Nicotine Cravings Ondansetron HCl (Zofran) 4 mg IVP Q8HR PRN PRN Reason: Nausea And Vomiting Last Admin: 06/14/16 01:26 Dose: 4 mg Pantoprazole Sodium (Protonix) 40 mg PO [id number] [facility] Last Admin: 06/14/16 06:22 Dose: 40 mg Plan: 1. Encourage patient to be out of bed. Increase activity in his room, physical therapy following. They disconnect the chest tube from wall suction while ambulating. 2. Encourage incentive spirometry use every hour while awake. 3. Chest tube to remain on low continuous wall suction except when ambulating. 4. Pain management with ordered medication regimen. 5. Comorbid medical problems to be managed by internal medicine service. 6. Megace 400 mg by mouth daily for his appetite. The patient states that he has been eating a little, calorie count in progress. 7. Plan for possible PEG tube placement, Dr. Sweet is following. 8. More recommendations as patient progresses.
[2016-06-14] MEDS: SERTRALINE 50 MG TAB PO SCH (12:41)
--- NOTE | 2016-06-14 13:20 | P.PN ---
Subjective Principal diagnosis: Squamous cell carcinoma of the right lung This is a pleasant 71-year-old gentleman who was recently diagnosed with squamous cell carcinoma. He is now status post right middle and right lower lobectomies performed by Dr. Negron on 05/27/2016. He is seen again today in follow-up on the selective care unit. Chest tube remains in place to continuous wall suction. Chest x-ray was reviewed. Continued right-sided pneumothorax. Maintaining good O2 saturations in the mid 90s on room air. His appetite has remained quite poor. There are plans for possible PEG tube placement for nutrition. Objective - Vital Signs Vital signs: Vital Signs Temp 97.8 F 06/14/16 08:17 Pulse 70 06/14/16 12:30 Resp 16 06/14/16 12:30 BP 113/60 06/14/16 12:30 Pulse Ox 96 06/14/16 12:30 Intake & Output 06/13/16 06/14/16 06/14/16 18:59 06:59 18:59 Intake Total 600 1080 Output Total 530 1070 220 Balance 70 10 -220 Weight 56.5 kg Intake: IV 600 600 NS 600 Sodium Chloride 0.9% 1, 600 000 ml @ 75 mls/hr IV . [id number] HEATHER Rx#:[id number] Oral 480 Output: Chest Tube Drainage 180 70 220 Chest Tube Right 180 70 220 Urine 350 1000 Other: Voiding Method Urinal Urinal Urinal # Voids 1 1 # Bowel Movements 0 - Exam GENERAL EXAM: Alert, fairly comfortable in no apparent distress. HEAD: Normocephalic. EYES: Normal reaction of pupils, equal size. NOSE: Clear with pink turbinates. THROAT: No erythema or exudates. NECK: No masses, no JVD. CHEST: No chest wall deformity. LUNGS: Equal air entry with crackles, diminished right lung. Right chest tube remains in place. CVS: S1 and S2 normal with no audible murmurs, regular rhythm. ABDOMEN: No hepatosplenomegaly, normal bowel sounds, no guarding or rigidity. SPINE: No scoliosis or deformity SKIN: No rashes CENTRAL NERVOUS SYSTEM: No focal deficits, tone is normal in all 4 extremities. Extremities: There is no significant peripheral edema. No clubbing, no cyanosis. Peripheral pulses are intact. - Labs CBC & Chem 7: 06/14/16 06:06 06/14/16 06:06 Labs: Abnormal Lab Results - Last 24 Hours (Table) 06/14/16 06/14/16 Range/Units 06:06 06:06 WBC 16.9 H (3.8-10.6) k/uL BUN 21 H (9-20) mg/dL Glucose 103 H (74-99) mg/dL Microbiology - Last 24 Hours (Table) 06/13/16 03:00 Urine Culture - Final Urine,Clean Catch Assessment and Plan Plan: Impression: #1 Squamous cell carcinoma. Status post right middle and right lower lobectomy , post operative day #18, a chest tube remains in place. #2 Persistent extensive subcutaneous emphysema with a right upper pneumothorax secondary to above. #3 Chronic and ongoing tobacco dependence. #4 Hypertension. #5 Gastroesophageal reflux fluid disease. Plan: The patient was seen and evaluated by Dr. Suresh. His chest x-ray and labs were reviewed. Continue with his current medications. CT services remains on the case in regards to the chest tube. There is a plan for possible PEG tube placement for nutritional support. We'll continue with his current medications. We'll increase his activity as tolerated. We'll continue to follow.
--- NOTE | 2016-06-14 15:06 | PN ---
DATE OF SERVICE: 06/14/2016 PRESENTING COMPLAINT: Right partial lobectomy. INTERVAL HISTORY: This is a 71-year-old male who is status post right middle and right lower lobectomy. Right chest wall tube remains in place with a positive air leak. Patient continues to complain of poor appetite. States nothing tastes good to him. Patient currently is getting up with assistance to utilize the bedside commode. Patient continues to complain of weakness and feeling tired. Patient continues to refuse to eat. Review of systems for constitutional, cardiovascular, gastrointestinal, pulmonary, with relevant findings as above. CURRENT MEDICATIONS: [place], DuoNeb, diltiazem, haloperidol. PHYSICAL EXAM: VITAL SIGNS: Temperature 97.8, pulse 83, respiratory rate 18, blood pressure 103/69, oxygen saturation 95% on room air. GENERAL APPEARANCE: Patient is awake, alert, attempting to get up out of bed with assistance from unit staff. States he still feels like he doesn't want to eat anything. nothing tastes good, nothing smells good. EYES: Pupils equal. Conjunctivae are normal. NECK: JVD not raised. Mass not palpable. LUNGS: Right lung sounds diminished with coarse breath sounds noted. Left diminished to the base. Respiratory effort normal, unlabored. CARDIOVASCULAR: S1, S2 normal. No edema noted. ABDOMEN: Soft, nontender. Liver and spleen not palpable. PSYCHIATRIC: Alert and oriented x3. Mood and affect are normal. INVESTIGATIONS: White blood cell count 16.9. BUN 21, creatinine 0.80. Chest x-ray, partial right pneumonectomy with right-sided pneumothorax. Apical component is minimally smaller. The basilar component is slightly smaller is well. Hydropneumothorax component. ASSESSMENT: 1. Right pneumothorax, iatrogenic. Chest tube remains in place with air leak present. 2. Anorexia, multifactorial including excess pain medications. 3. Metabolic encephalopathy from excessive pain medication actually improved as pain medication is cut back. 4. Moderate protein calorie malnutrition from decreased oral intake with decreased muscle mass and a body mass index of 17.5. 5. Emphysema in a current smoker. 6. Chronic nicotine dependence. Patient is an active cigarette smoker. 7. Essential hypertension. 8. Gastroesophageal reflux disease. 9. Chronic alcohol dependence. Patient's delirium withdrawal has since resolved. 10. Subcutaneous emphysema remains in the right upper chest wall. PLAN: Continue current medication and treatment plan. Patient attempts to increase his oral intake. Dietitian has been consulted and calorie count is in progress. Patient was seen and examined by nurse practitioner, Zainab Rivera and all elements of the case discussed with attending, Dr. Albert.
--- NOTE | 2016-06-14 21:41 | P.PN ---
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 [facility] apparently presented while in [facility] with hemoptysis and workup occurred from there after he was released from [facility] he underwent workup. Chest x-ray in February showed a large right lower lobe mass. PET scan showed no evidence of metastasis. Bronchoscopy was positive for squamous carcinoma. 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 He was admitted on 05/27/2016 underwent right thoracotomy, right lower and middle lobectomy, mediastinal lymph node dissection, cryo-ablation of intercostal nerves IV through VIII. It appears the patient was progressing as expected until around 05/30 and patient developed moderate right upper lobe pneumothorax with extensive subcutaneous emphysema his O2 saturation was well maintained. By June 10 he had complete reexpansion and subsequently developed some prerenal azotemia which have subsequently stabilized. Patient has had increased weakness in very poor oral intake and is followed by dietitian. Patient was seen while he is in bed. He denies any shortness of breath but is not doing much walking. He states he tires very quickly. Regarding his appetite, he states his senna cc food he loses his appetite. He denies any vomiting, diarrhea. He denies dysuria. He states his pain is about 9-10/10 all the time and does not seem to be improved with medications. Regarding leukocytosis, white count has been consistently elevated since June 07 with peak at 18.2 on June 12. He is slightly improved today at 15.5. He has been afebrile during this hospitalization. Patient was on cefazolin during the perioperative period but none since that time. He has been started on Megace for appetite. His weight has decreased by 6 kg since arch of this year. There has been concern for need of PEG tube. Prealbumin is only 5. His most recent chest x-ray is showing persistent right pneumothorax with right apical component appearing slightly smaller. Urinalysis done on June 13 was clear, nitrite and leukoesterase negative. Feels about the same, still with shortness of breath and not eating Objective - Vital Signs Vital signs: Vital Signs Temp 96.8 F L 06/14/16 17:50 Pulse 85 06/14/16 17:50 Resp 18 06/14/16 17:50 BP 140/70 06/14/16 17:50 Pulse Ox 92 L 06/14/16 17:50 Intake & Output 06/14/16 06/14/16 06/15/16 06:59 18:59 06:59 Intake Total 1080 600 Output Total 1070 522 Balance 10 78 Weight 56.5 kg Intake: IV 600 600 Sodium Chloride 0.9% 1, 600 600 000 ml @ 75 mls/hr IV . [id number] [facility] Rx#:[id number] Oral 480 Output: Chest Tube Drainage 70 270 Chest Tube Right 70 270 Urine 1000 250 Stool 2 Other: Voiding Method Urinal Urinal # Voids 1 # Bowel Movements 2 - Exam Gen: This is a 71-year-old thin -[place]ian male area and he is laying in bed and appears to be in no acute distress. HEENT: Head is atraumatic, normocephalic. Pupils equal, round. Sclerae is anicteric. NECK: Supple. No JVD. No lymphadenopathy. LUNGS: Few crackles on the right side. Chest tube to the right chest wall. Dressing in place over chest incision. No intercostal retractions. HEART: Regular rate and rhythm. No murmur. ABDOMEN: Soft. Bowel sounds are present. No masses. No tenderness. EXTREMITIES: No pedal edema. No calf tenderness. NEUROLOGICAL: Patient is awake, alert and oriented x3. Cranial nerves 2 through 12 are grossly intact. - Labs CBC & Chem 7: 06/14/16 06:06 06/14/16 06:06 Labs: Abnormal Lab Results - Last 24 Hours (Table) 06/14/16 06/14/16 Range/Units 06:06 06:06 WBC 16.9 H (3.8-10.6) k/uL BUN 21 H (9-20) mg/dL Glucose 103 H (74-99) mg/dL Microbiology - Last 24 Hours (Table) 06/13/16 03:00 Urine Culture - Final Urine,Clean Catch Laboratory Results WBC 16.9 k/uL (3.8-10.6) H 06/14/16 06:06 RBC 5.63 m/uL (4.30-5.90) 06/14/16 06:06 Hgb 15.8 gm/dL (13.0-17.5) 06/14/16 06:06 Hct 49.5 % (39.0-53.0) 06/14/16 06:06 MCV 87.9 fL (80.0-100.0) 06/14/16 06:06 MCH 28.1 pg (25.0-35.0) 06/14/16 06:06 MCHC 32.0 g/dL (31.0-37.0) 06/14/16 06:06 RDW 14.6 % (11.5-15.5) 06/14/16 06:06 Plt Count 432 k/uL (150-450) 06/14/16 06:06 Neutrophils % 81 % 06/13/16 05:35 Lymphocytes % 6 % 06/13/16 05:35 Monocytes % 10 % 06/13/16 05:35 Eosinophils % 2 % 06/13/16 05:35 Basophils % 0 % 06/13/16 05:35 Neutrophils # 12.5 k/uL (1.3-7.7) H 06/13/16 05:35 Lymphocytes # 1.0 k/uL (1.0-4.8) 06/13/16 05:35 Monocytes # 1.5 k/uL (0-1.0) H 06/13/16 05:35 Eosinophils # 0.3 k/uL (0-0.7) 06/13/16 05:35 Basophils # 0.0 k/uL (0-0.2) 06/13/16 05:35 PT 12.6 sec (9.0-12.0) H 06/13/16 05:35 INR 1.3 (<1.1) 06/13/16 05:35 Sodium 139 mmol/L (137-145) 06/14/16 06:06 Potassium 4.1 mmol/L (3.5-5.1) 06/14/16 06:06 Chloride 105 mmol/L (98-107) 06/14/16 06:06 Carbon Dioxide 22 mmol/L (22-30) 06/14/16 06:06 Anion Gap 12 mmol/L 06/14/16 06:06 BUN 21 mg/dL (9-20) H 06/14/16 06:06 Creatinine 0.80 mg/dL (0.66-1.25) 06/14/16 06:06 Est GFR (MDRD) Af Amer >60 (>60 ml/min/1.73 sqM) 06/14/16 06:06 Est GFR (MDRD) Non-Af >60 (>60 ml/min/1.73 sqM) 06/14/16 06:06 Glucose 103 mg/dL (74-99) H 06/14/16 06:06 POC Glucose (mg/dL) 119 mg/dL (75-99) H 06/01/16 21:15 POC Glu [employer] ID Juanis Garcia 06/01/16 21:15 Calcium 9.1 mg/dL (8.4-10.2) 06/14/16 06:06 Phosphorus 2.9 mg/dL (2.5-4.5) 06/14/16 06:06 Magnesium 1.7 mg/dL (1.6-2.3) 06/14/16 06:06 Total Bilirubin 0.8 mg/dL (0.2-1.3) 06/13/16 05:35 AST 23 U/L (17-59) 06/13/16 05:35 ALT 36 U/L (21-72) 06/13/16 05:35 Alkaline Phosphatase 65 U/L (38-126) 06/13/16 05:35 Total Protein 5.2 g/dL (6.3-8.2) L 06/13/16 05:35 Albumin 2.4 g/dL (3.5-5.0) L 06/13/16 05:35 Prealbumin 5 mg/dL (18-36) L 06/13/16 05:35 Urine Color Yellow 06/13/16 03:00 Urine Appearance Clear (Clear) 06/13/16 03:00 Urine pH 5.5 (5.0-8.0) 06/13/16 03:00 Ur Specific [place] 1.016 (1.001-1.035) 06/13/16 03:00 Urine Protein Negative (Negative) 06/13/16 03:00 Urine Glucose (UA) Negative (Negative) 06/13/16 03:00 Urine Ketones Trace (Negative) H 06/13/16 03:00 Urine Blood Negative (Negative) 06/13/16 03:00 Urine Nitrite Negative (Negative) 06/13/16 03:00 Urine Bilirubin Negative (Negative) 06/13/16 03:00 Urine Urobilinogen 6.0 mg/dL (<2.0) 06/13/16 03:00 Ur Leukocyte Esterase Negative (Negative) 06/13/16 03:00 Blood Type O Positive 05/23/16 09:34 Blood Type Recheck No 05/23/16 09:34 Antibody Screen NEGATIVE 05/23/16 09:34 Spec Expiration Date 05/29/16 2334 05/23/16 09:34 Microbiology 06/13/16 03:00 Urine,Clean Catch Urine Culture - Final Assessment and Plan (1) Non-small cell carcinoma of right lung Narrative/Plan: Patient relates he is feeling slightly better. He is attempting to eat. He is going slow so he doesn't have a difficulty with nausea and emesis. Daily yogurt for me. He has evidence of the squamous cell carcinoma the lung with the recent extensive surgical intervention was some ongoing air leak. The leukocytosis appears to be reactive. The patient does not appear to be acutely infected at this point in time. It appears in the last it is actually been some improvement of his status possibly related to his increasing food intake. Patient is again educated on the significant importance of his protein intake. He will have a PEG tube inserted to attempt to correct nutrition before consideration of hospice care Status: Acute (2) Leukocytosis Status: Acute
--- NOTE | 2016-06-14 22:20 | P.PN ---
Progress Note - Text Patient seen and evaluated. Benefits and risks of surgical intervention was reviewed. Will proceed with PEG tube placement.
[2016-06-15] MEDS: KETOROLAC 30 MG/ML 1 ML VIAL IVP SCH ×5 (00:23→23:23)
[2016-06-15 06:16] LABS: Basophils % (A) 0 %; CH 28.7; CHCM 33.1; Eosinophils # (A) 0.1 k/uL (0-0.7); Eosinophils % (A) 1 %; HCT 45.3 % (39.0-53.0); HDW 2.98; HGB 14.5 gm/dL (13.0-17.5); Luc # (Auto) 0.15; Luc % (Auto) 1; Lymphocytes # (A) 0.6 k/uL (1.0-4.8); Lymphocytes % (A) 4 %; MCV 87.4 fL (80.0-100.0); Mean Platelet Volume 6.7; Monocytes # (A) 1.1 k/uL (0-1.0); Monocytes % (A) 7 %; Neutrophils # (A) 14.5 k/uL (1.3-7.7); Neutrophils % (A) 88 %; RBC 5.19 m/uL (4.30-5.90); RDW 14.4 % (11.5-15.5); WBC 16.5 k/uL (3.8-10.6); WBC (Perox) 16.64
[2016-06-15 06:28] LABS: ALT 28 U/L (21-72); AST 17 U/L (17-59); Alkaline Phosphatase 72 U/L (38-126); Anion Gap 8 mmol/L; Blood Urea Nitrogen 26 mg/dL (9-20); Calcium 8.6 mg/dL (8.4-10.2); Carbon Dioxide 25 mmol/L (22-30); Chloride 107 mmol/L (98-107); Glucose 96 mg/dL (74-99); Magnesium 2.1 mg/dL (1.6-2.3); Non-African American GFR(MDRD) >60 (>60 ml/min/1.73 sqM); Potassium 4.3 mmol/L (3.5-5.1); Sodium 140 mmol/L (137-145); Total Bilirubin 0.8 mg/dL (0.2-1.3); Total Protein 4.8 g/dL (6.3-8.2)
--- NOTE | 2016-06-15 07:19 | XR ---
EXAMINATION TYPE: XR chest 1V portable DATE OF EXAM: 06/15/2016 6:22 AM COMPARISON: 06/14/2016 HISTORY: Pneumothorax TECHNIQUE: Single frontal view of the chest is obtained. FINDINGS: Extensive soft tissue emphysema noted. Chest tube seen in position. Residual 20-25 % apica l pneumothorax seen. Additionally appears to be a lower wall hydropneumothorax component. Left lung c lear. IMPRESSION: 1. Stable right-sided soft tissue emphysema and small apical pneumothorax.
--- NOTE | 2016-06-15 07:46 | PN ---
DATE OF SERVICE: 06/14/2016 ATTENDING NOTE: This patient was seen and examined by me. I reviewed the note of my nurse practitioner and agreed with the same except for changes as below. The patient is status post right lung surgery. Chest tube remains in place. Air leak is still present. Oral intake has not really much improved. Patient remains tired. ON EXAMINATION: LUNGS: Decreased breath sounds. CARDIOVASCULAR: First and second sounds normal. ( ) emphysema is present. PSYCH: Able to answer simple questions. INVESTIGATIONS: White count 16.9. Potassium 4.1. ASSESSMENT: 1. Right pneumothorax iatrogenic/anorexia, multifactorial/metabolic encephalopathy, excess pain medication, actually improved. 2. Moderate protein calorie malnutrition from decreased oral intake. 3. Other medical conditions stable. Follow with cardiothoracic surgery. Overall prognosis is guarded.
--- NOTE | 2016-06-15 07:59 | P.HPADDEND ---
H&P Addendum H&P Addendum Date: 06/15/16 Benefits and risk of upper endoscopy with endoscopic gastrostomy tube placement were reviewed. We'll proceed for placement of protein malnutrition secondary to protein intake and anorexia secondary to malignancy.
--- NOTE | 2016-06-15 08:14 | P.PN ---
<Ernestine Earl - Last Filed: 06/15/16 08:06> Subjective Principal diagnosis: Non-small cell carcinoma right lower lobe of the lung POD #18 right thoracotomy, right lower and middle lobectomy, mediastinal lymph node dissection, cryoablation of intercostal nerves IV through VIII Pt currently resting in bed in no apparent distress. Anticipating PEG tube placement today. Objective - Vital Signs Vital signs: Vital Signs Temp 97.9 F 06/15/16 04:00 Pulse 68 06/15/16 04:00 Resp 16 06/15/16 04:00 BP 120/58 06/15/16 04:00 Pulse Ox 93 L 06/15/16 04:00 Intake & Output 06/14/16 06/15/16 06/15/16 18:59 06:59 18:59 Intake Total 600 1860 Output Total 522 872 Balance 78 988 Weight 56.6 kg Intake: IV 600 300 Sodium Chloride 0.9% 1, 600 300 000 ml @ 75 mls/hr IV . [id number] [facility] Rx#:[id number] Intake, IV Titration 600 Amount Sodium Chloride 0.9% 1, 600 000 ml @ 75 mls/hr IV . [id number] [facility] Rx#:[id number] Oral 960 Output: Chest Tube Drainage 270 120 Chest Tube Right 270 120 Urine 250 750 Stool 2 2 Other: Voiding Method Urinal Urinal # Voids 1 # Bowel Movements 2 - Constitutional General appearance: Present: cooperative, no acute distress - Respiratory Details: Lungs sounds diminished bilaterally. Respirations even, nonlabored. Currently on room air with oxygen saturation 93%. Able to achieve 1000 mL on incentive spirometry. Chest tube to -20 cm wall suction, 400 mL serous drainage in the last 24 hours. Positive air leak still present. - Cardiovascular Details: S1-S2 present. Regular rate and rhythm, normal sinus rhythm on telemetry. - Gastrointestinal Gastrointestinal Comment(s): Abdomen soft, nontender, nondistended. Hyperactive bowel sounds 4 quadrants. Nothing by mouth for surgery today. Bowel movement 3 yesterday. - Genitourinary Genitourinary Comment(s): Voiding clear, yellow urine. - Musculoskeletal Musculoskeletal: Present: generalized weakness - Psychiatric Psychiatric: Present: A&O x's 3, appropriate affect, intact judgment & insight - Allied health notes Allied health notes reviewed: nursing - Labs CBC & Chem 7: 06/15/16 05:18 06/15/16 05:18 Labs: Abnormal Lab Results - Last 24 Hours (Table) 06/15/16 06/15/16 Range/Units 05:18 05:18 WBC 16.5 H (3.8-10.6) k/uL Neutrophils # 14.5 H (1.3-7.7) k/uL Lymphocytes # 0.6 L (1.0-4.8) k/uL Monocytes # 1.1 H (0-1.0) k/uL BUN 26 H (9-20) mg/dL Total Protein 4.8 L (6.3-8.2) g/dL Albumin 2.2 L (3.5-5.0) g/dL Microbiology - Last 24 Hours (Table) 06/13/16 03:00 Urine Culture - Final Urine,Clean Catch - Imaging and Cardiology Chest x-ray: image reviewed Assessment and Plan (1) Non-small cell carcinoma of right lung Status: Acute Plan: 1. Nothing by mouth for PEG tube placement today. 2. Increase activity in his room, physical therapy following. 3. Encourage incentive spirometry use. 4. CT to remain on suction. 5. Pain management with ordered medication regimen. 6. Comorbid medical problems to be managed by internal medicine service. Dietitian on consult, calorie count requested as patient is not eating much. 7. Discharge planning in progress, patient will need to go to a facility upon discharge 8. More recommendations as patient progresses. Time with Patient: Greater than 30 <Rudi Gutierrez - Last Filed: 06/16/16 19:13> Objective - Vital Signs Vital signs: Vital Signs Temp 97.4 F L 06/16/16 12:00 Pulse 80 06/16/16 19:09 Resp 16 06/16/16 12:24 BP 154/74 06/16/16 12:00 Pulse Ox 96 06/16/16 12:00 Intake & Output 06/16/16 06/16/16 06/17/16 06:59 18:59 06:59 Intake Total 675 20 900 Output Total 213 98 Balance 462 -78 900 Weight 57.8 kg Intake: IV 675 900 Sodium Chloride 0.9% 1, 675 900 000 ml @ 75 mls/hr IV . [id number] [facility] Rx#:[id number] Oral 0 Tube Feeding 20 Output: Chest Tube Drainage 213 96 Chest Tube Right 213 96 Stool 2 Other: Voiding Method Urinal Urinal - Labs CBC & Chem 7: 06/16/16 05:21 06/16/16 05:21 Labs: Abnormal Lab Results - Last 24 Hours (Table) 06/16/16 06/16/16 Range/Units 05:21 05:21 WBC 13.3 H (3.8-10.6) k/uL Neutrophils # 12.0 H (1.3-7.7) k/uL Lymphocytes # 0.5 L (1.0-4.8) k/uL Chloride 108 H (98-107) mmol/L Carbon Dioxide 21 L (22-30) mmol/L BUN 23 H (9-20) mg/dL Total Protein 4.5 L (6.3-8.2) g/dL Albumin 2.1 L (3.5-5.0) g/dL Assessment and Plan Plan: The patient was seen and examined. I agree with the above assessment and plan. He continues to have a leak from his chest tube on suction. He is scheduled to undergo PEG tube placement today.
[2016-06-15] MEDS: ASPIRIN 81 MG CHEW PO SCH (08:35)
[2016-06-15] MEDS: PANTOPRAZOLE 40 MG TABLET PO SCH (08:35)
[2016-06-15] MEDS: NICOTINE 21MG/24HR PATCH TRANSDERM SCH (08:35)
[2016-06-15] MEDS: ATORVASTATIN 40 MG TAB PO SCH (08:36)
[2016-06-15] MEDS: BISACODYL 10 MG SUPP RECTAL SCH (08:36)
[2016-06-15] MEDS: DILTIAZEM CD 240 MG CAP.ER.24H PO SCH (08:36)
[2016-06-15] MEDS: HYDROCHLOROTHIAZIDE 25 MG TAB PO SCH (08:36)
[2016-06-15] MEDS: HEPARIN SODIUM,PORCINE 5,000 UNIT/ML 1 ML VIAL SQ SCH ×2 (08:36→20:36)
[2016-06-15] MEDS: METOPROLOL TARTRATE 50 MG TAB PO SCH ×3 (08:37→20:36)
[2016-06-15] MEDS: MEGESTROL 400 MG/10 ML CUP PO SCH (08:37)
[2016-06-15] MEDS: SERTRALINE 50 MG TAB PO SCH (08:37)
[2016-06-15] MEDS: SODIUM CHLORIDE 0.9% 1,000 ML IV SCH ×2 (08:39→23:26)
[2016-06-15] MEDS: IPRATROPIUM-ALBUTEROL 3 ML NEB IH SCH ×4 (08:40→21:13)
--- NOTE | 2016-06-15 09:46 | P.PN ---
Subjective 71-year-old being seen by surgical service at the request of the attending for a PEG tube placement for nutritional support. Patient and patient's family have agreed to proceed with the PEG tube placement. Surgical service will schedule for procedure on June 15. This 71-year-old gentleman was recently diagnosed with squamous cell carcinoma. Patient status post right middle lobe right lower lobe lobectomy which were done by vascular surgery 05/27/2016 Patient currently is denying any chest pain oxygen on room air sats are documented 90%. Patient has a poor appetite. In the chest tube remains in place connected to suction Objective - Vital Signs Vital signs: Vital Signs Temp 97.8 F 06/14/16 08:17 Pulse 75 06/14/16 15:59 Resp 16 06/14/16 12:30 BP 113/60 06/14/16 12:30 Pulse Ox 96 06/14/16 12:30 Intake & Output 06/13/16 06/14/16 06/14/16 18:59 06:59 18:59 Intake Total 600 1080 600 Output Total 530 1070 470 Balance 70 10 130 Weight 56.5 kg Intake: IV 600 600 600 NS 600 Sodium Chloride 0.9% 1, 600 600 000 ml @ 75 mls/hr IV . [id number] [facility] Rx#:[id number] Oral 480 Output: Chest Tube Drainage 180 70 220 Chest Tube Right 180 70 220 Urine 350 1000 250 Other: Voiding Method Urinal Urinal Urinal # Voids 1 2 # Bowel Movements 1 - Exam Physical exam 71-year-old thin cachectic in appearance male sitting up in bed Lungs posterior crackles at the bases diminished right lung with a chest tube in the right Heart S1-S2 audible regular Abdomen soft no stool nontender not distended Extremities no edema noted - Labs CBC & Chem 7: 06/14/16 06:06 06/14/16 06:06 Labs: Abnormal Lab Results - Last 24 Hours (Table) 06/14/16 06/14/16 Range/Units 06:06 06:06 WBC 16.9 H (3.8-10.6) k/uL BUN 21 H (9-20) mg/dL Glucose 103 H (74-99) mg/dL Microbiology - Last 24 Hours (Table) 06/13/16 03:00 Urine Culture - Final Urine,Clean Catch Assessment and Plan Plan: Impression Squama cell carcinoma status post right middle and right lower lobectomy postop day [address] Persistent extensive subcutaneous emphysema right upper pneumothorax secondary to #1 Chronic and ongoing tobacco dependency inadequate dietary intake protein Hypoalbuminemia due to protein calorie malnutrition acute Anorexia Malignant cachexia Plan Surgery will proceed with a PEG tube placement for nutritional support defer to the timing by surgical service Reinforced to the patient the PEG tube feasibly could be removed once patient appetite improves The above dictated assessment and findings were discussed with dr gonzalez Impression and the plan of care have been dictated as directed. Jackie Chaidez nurse practitioner acting as a scribe for dr gonzalez.
[2016-06-15] MEDS ORDERED: LIDOCAINE 1% INJ 10MG/ML (20 ML MDV) ONE (10:48)
[2016-06-15] MEDS ORDERED: PROPOFOL 10 MG/ML 20 ML VIAL IV ONE (10:48)
[2016-06-15] MEDS ORDERED: ceFAZolin 2 GM in SODIUM CHLORIDE 0.9% 100 ML IVPB STA (11:05)
[2016-06-15] MEDS ORDERED: IV FLUID CONTINUATION 500 ML IV ONE (11:09)
--- NOTE | 2016-06-15 11:10 | P.PCN ---
Date of Procedure: 06/15/16 Description of Procedure: PREOPERATIVE DIAGNOSIS: Severe protein malnutrition secondary to inadequate protein intake. Anorexia secondary to malignancy. Under weight, BMI 17.9 Hypoalbuminemia. History of squamous cell cancer, lung cancer. POSTOPERATIVE DIAGNOSIS: Severe protein malnutrition secondary to inadequate protein intake. Anorexia secondary to malignancy. Under weight, BMI 17.9 Hypoalbuminemia. History of squamous cell cancer, lung cancer. Diaphragmatic hiatal hernia. OPERATION: Esophagogastroduodenoscopy with percutaneous endoscopic gastrostomy tube placement 20-[place], EndoVive Pull technique [employer]. SURGEON: Kalie Sweet MD ANESTHESIA: MAC. INDICATIONS: The patient is a 71-year-old male who presents with a history of underweight and inadequate protein intake and moderate to severe protein malnutrition. Benefits and risks of the procedure were described. Informed consent was obtained. DESCRIPTION: The patient was laid in supine position. After adequate IV sedation a bite block was placed. An Olympus gastroscope was passed along the posterior oropharynx down the distal esophagus. The stomach was entered. Gastritis was encountered. The antrum appeared unremarkable. A point along the anterior surface, greater curvature of the stomach was selected. The scope was passed to the duodenum which was unremarkable. The skin was cleansed with ChloraPrep and an incision was made after illuminating the proposed PEG tube site. Using a 16-[place] needle, a guidewire was fed into the stomach under endoscopic visualization. A snare was used to pull the guidewireout of the mouth. Over the guidewire, the PEG tube was pulled over the guidewire until it exited through the skin incision. The guidewire was removed. The round fitting clasp was placed over the gastrostomy tube and fixed at 2 cm at the skin. A feeding adapter was placed at the cut end of the feeding tube. An endoscopic captured image of the gastrostomy tube within the stomach was made. The patient tolerated the procedure well. Findings: 1. Hill grade 4 lower esophageal valve. 2. Diaphragmatic hiatal hernia, 4 cm. 3. No acute gastric ulcers. 4. No acute duodenitis. Disposition: Will start tube feeds within 24 hours with goal determined with faculty administrator.
--- NOTE | 2016-06-15 16:59 | PN ---
This is a 71-year-old gentleman with a history of squamous cell carcinoma of the lung. He had a right middle and right lower lobectomy performed by Dr. Negron on May 27. He has been struggling with poor nutrition and poor oral intake. A PEG tube was placed today. The other big issue is whether or not he has a bronchial stump leak. He has persistent subcutaneous emphysema on the right. The patient has got a significant air leak on the right as well. Chest tube is still in place. He was very groggy today when we evaluated him. He did arouse. Again, he just got back from the PEG tube placement. Current vital signs include temperature 96.7, heart rate 80, respiratory rate 14, blood pressure 145/67, mean 93, room-air saturation 97%. Appears in no acute distress. HEENT examination is grossly unremarkable. Mucous membranes are moist. No oral lesions. Neck is supple. Full range of motion. No adenopathy or thyromegaly. Neck veins are flat. Cardiovascular examination reveals regular rhythm and rate. S1, S2 normal. No S3, S4 or murmur. Lungs reveal diminished breath sounds on the right side. A few scattered rhonchi. There is some subcutaneous emphysema on palpation. Left lung is clear. No wheezes, rhonchi or crackles in the left side. Abdomen is soft. Bowel sounds are heard. Extremities are intact. No cyanosis, clubbing or edema. Skin is without rash. Neurologic examination is nonfocal. Lab data are reviewed. White count 16.5; hemoglobin, hematocrit and platelet count all normal. Sodium, potassium, chloride and CO2 all normal. BUN and creatinine were 26 and 0.95. Albumin 2.2. Chest x-ray is reviewed. ASSESSMENT: 1. Squamous cell carcinoma, status post right middle and right lower lobectomy, postoperative day #19, with a persistent air leak. 2. Significant subcutaneous emphysema on the right. 3. Chronic and ongoing tobacco dependence. 4. Hypertension. 5. Gastroesophageal reflux disease. PLAN: I talked to Ernestine and Jacob from the thoracic team. I asked them to call Dr. Negron and ask him about bronchoscopy for possible bronchial stump bleed. He will get back with me. The PEG tube was placed today. No additional recommendations are made. Will continue with nutritional support. Prognosis is guarded, given his long hospitalization.
[2016-06-15] MEDS: ceFAZolin 2 GM in SODIUM CHLORIDE 0.9% 100 ML IVPB SCH (18:22)
--- NOTE | 2016-06-15 19:47 | PN ---
DATE OF SERVICE: 06/15/2016 PRESENTING COMPLAINT: Right partial lobectomy. INTERVAL HISTORY: This is a 71-year-old male who is status post right middle and lower lobectomy. Right chest wall tube remains in place with a positive air leak. Patient continues to complain of poor appetite. States nothing tastes good to him. Patient currently getting up with assistance to get into the chair. Patient continues to refuse to eat. Review of systems for constitutional, cardiovascular, gastrointestinal, pulmonary, with relevant findings as above. CURRENT MEDICATIONS: [place], DuoNeb, diltiazem, haloperidol. PHYSICAL EXAMINATION: VITAL SIGNS: Temperature 98.5, pulse 72, respiratory rate 18, blood pressure 131/69, oxygen saturation 96% on room air. GENERAL APPEARANCE: Patient is awake resting comfortably on arrival. States he still does not feel like he wants to eat anything. States nothing tastes good. Nothing smells good. EYES: Pupils equal. Conjunctivae normal. NECK: JVD not raised. Mass not palpable. LUNGS: Right lung sounds diminished with coarse breath sounds noted. Left diminished to the base. Respiratory effort normal, unlabored. CARDIOVASCULAR: S1, S2 normal. No edema noted. ABDOMEN: Soft, nontender. Liver and spleen are not palpable. PSYCHIATRIC: Alert and oriented x3. Mood and affect are normal. INVESTIGATIONS: White blood cell count 16.5, hemoglobin 14.5, platelet count 385. Sodium 140, potassium 4.3, BUN 26, creatinine 0.95, albumin 2.2. Chest x-ray stable right-sided soft tissue emphysema and small apical pneumothorax present. ASSESSMENT: 1. Right pneumothorax, iatrogenic/anorexia multifactorial/metabolic encephalopathy, excess pain medications, patient actually improved somewhat. 2. Moderate protein calorie malnutrition from decreased oral intake. 3. Other medical conditions stable. 4. Emphysema in a current smoker. 5. Chronic nicotine dependence, patient is an active smoker. 6. Essential hypertension. 7. Gastroesophageal reflux disease. 8. Chronic alcohol dependence. Patient's delirium withdrawal has since resolved. 9. Subcutaneous emphysema remains in the right upper chest wall. PLAN: Continue current medication and treatment plan. General surgery is slated to place a feeding tube to try and assist patient with lack of appetite and to improve nutritional status. Dietitian remains on consult. We will follow with cardiothoracic surgery. Patient was seen and examined by nurse practitioner Zainab Rivera and all the elements of the case was discussed with the attending Dr. Albert. I performed a history and physical examination of this patient and discussed the same with the dictator. I agree with the dictator's note. Any additional findings/opinions, etc. will be noted.
[2016-06-15] MEDS: HYDROcodone/APAP 5-325MG 1 EACH TAB PO PRN (20:36)
--- NOTE | 2016-06-15 22:21 | P.PN ---
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 Patient apparently presented while in [facility] with hemoptysis and workup occurred from there after he was released from [facility] he underwent workup. Chest x-ray in February showed a large right lower lobe mass. PET scan showed no evidence of metastasis. Bronchoscopy was positive for squamous carcinoma. 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 He was admitted on 05/27/2016 underwent right thoracotomy, right lower and middle lobectomy, mediastinal lymph node dissection, cryo-ablation of intercostal nerves IV through VIII. It appears the patient was progressing as expected until around 05/30 and patient developed moderate right upper lobe pneumothorax with extensive subcutaneous emphysema his O2 saturation was well maintained. By June 10 he had complete reexpansion and subsequently developed some prerenal azotemia which have subsequently stabilized. Patient has had increased weakness in very poor oral intake and is followed by dietitian. Patient was seen while he is in bed. He denies any shortness of breath but is not doing much walking. He states he tires very quickly. Regarding his appetite, completely stopped eating. Has a PEG tube is in place today. He denies any vomiting, diarrhea. He denies dysuria. He states his pain is about 9-10/10 all the time and does not seem to be improved with medications. Regarding leukocytosis, white count has been consistently elevated since June 07 with peak at 18.2 on June 12. He is slightly improved today at 15.5. He has been afebrile during this hospitalization. Patient was on cefazolin during the perioperative period but none since that time. He has been started on Megace for appetite. His weight has decreased by 6 kg since arch of this year. Prealbumin is only 5. His most recent chest x-ray is showing persistent right pneumothorax with right apical component appearing slightly smaller. Urinalysis done on June 13 was clear, nitrite and leukoesterase negative. Objective - Vital Signs Vital signs: Vital Signs Temp 98.5 F 06/15/16 16:00 Pulse 80 06/15/16 21:31 Resp 18 06/15/16 16:00 BP 131/69 06/15/16 16:00 Pulse Ox 96 05/10/17 16:00 Intake & Output 06/15/16 06/15/16 06/16/16 06:59 18:59 06:59 Intake Total 1860 100 Output Total 872 152 Balance 988 -52 Weight 56.6 kg 56.6 kg Intake: IV 300 100 Sodium Chloride 0.9% 1, 300 000 ml @ 75 mls/hr IV . [id number] [facility] Rx#:[id number] Intake, IV Titration 600 Amount Sodium Chloride 0.9% 1, 600 000 ml @ 75 mls/hr IV . [id number] [facility] Rx#:[id number] Oral 960 Output: Chest Tube Drainage 120 150 Chest Tube Right 120 150 Urine 750 Stool 2 2 Other: Voiding Method Urinal Urinal # Voids 1 # Bowel Movements 1 - Exam Gen: This is a 71-year-old thin -[place] male area and he is laying in bed and appears to be in no acute distress. HEENT: Head is atraumatic, normocephalic. Pupils equal, round. Sclerae is anicteric. NECK: Supple. No JVD. No lymphadenopathy. LUNGS: Few crackles on the right side. Chest tube to the right chest wall. Dressing in place over chest incision. No intercostal retractions. HEART: Regular rate and rhythm. No murmur. ABDOMEN: Soft. Bowel sounds are present. No masses. No tenderness. PEG tube has then placed. EXTREMITIES: No pedal edema. No calf tenderness. NEUROLOGICAL: Patient is awake, alert and oriented x3. Cranial nerves 2 through 12 are grossly intact. - Labs CBC & Chem 7: 06/15/16 05:18 06/15/16 05:18 Labs: Abnormal Lab Results - Last 24 Hours (Table) 06/15/16 06/15/16 Range/Units 05:18 05:18 WBC 16.5 H (3.8-10.6) k/uL Neutrophils # 14.5 H (1.3-7.7) k/uL Lymphocytes # 0.6 L (1.0-4.8) k/uL Monocytes # 1.1 H (0-1.0) k/uL BUN 26 H (9-20) mg/dL Total Protein 4.8 L (6.3-8.2) g/dL Albumin 2.2 L (3.5-5.0) g/dL Laboratory Results WBC 16.5 k/uL (3.8-10.6) H 06/15/16 05:18 RBC 5.19 m/uL (4.30-5.90) 06/15/16 05:18 Hgb 14.5 gm/dL (13.0-17.5) 06/15/16 05:18 Hct 45.3 % (39.0-53.0) 06/15/16 05:18 MCV 87.4 fL (80.0-100.0) 06/15/16 05:18 MCH 28.0 pg (25.0-35.0) 06/15/16 05:18 MCHC 32.0 g/dL (31.0-37.0) 06/15/16 05:18 RDW 14.4 % (11.5-15.5) 06/15/16 05:18 Plt Count 385 k/uL (150-450) 06/15/16 05:18 Neutrophils % 88 % 06/15/16 05:18 Lymphocytes % 4 % 06/15/16 05:18 Monocytes % 7 % 06/15/16 05:18 Eosinophils % 1 % 06/15/16 05:18 Basophils % 0 % 06/15/16 05:18 Neutrophils # 14.5 k/uL (1.3-7.7) H 06/15/16 05:18 Lymphocytes # 0.6 k/uL (1.0-4.8) L 06/15/16 05:18 Monocytes # 1.1 k/uL (0-1.0) H 06/15/16 05:18 Eosinophils # 0.1 k/uL (0-0.7) 06/15/16 05:18 Basophils # 0.0 k/uL (0-0.2) 06/15/16 05:18 PT 12.6 sec (9.0-12.0) H 06/13/16 05:35 INR 1.3 (<1.1) 06/13/16 05:35 Sodium 140 mmol/L (137-145) 06/15/16 05:18 Potassium 4.3 mmol/L (3.5-5.1) 06/15/16 05:18 Chloride 107 mmol/L (98-107) 06/15/16 05:18 Carbon Dioxide 25 mmol/L (22-30) 06/15/16 05:18 Anion Gap 8 mmol/L 06/15/16 05:18 BUN 26 mg/dL (9-20) H 06/15/16 05:18 Creatinine 0.95 mg/dL (0.66-1.25) 06/15/16 05:18 Est GFR (MDRD) Af Amer >60 (>60 ml/min/1.73 sqM) 06/15/16 05:18 Est GFR (MDRD) Non-Af >60 (>60 ml/min/1.73 sqM) 06/15/16 05:18 Glucose 96 mg/dL (74-99) 06/15/16 05:18 POC Glucose (mg/dL) 119 mg/dL (75-99) H 06/01/16 21:15 POC Glu [employer] Juanis Nolan 06/01/16 21:15 Calcium 8.6 mg/dL (8.4-10.2) 06/15/16 05:18 Phosphorus 2.9 mg/dL (2.5-4.5) 06/14/16 06:06 Magnesium 2.1 mg/dL (1.6-2.3) 06/15/16 05:18 Total Bilirubin 0.8 mg/dL (0.2-1.3) 06/15/16 05:18 AST 17 U/L (17-59) 06/15/16 05:18 ALT 28 U/L (21-72) 06/15/16 05:18 Alkaline Phosphatase 72 U/L (38-126) 06/15/16 05:18 Total Protein 4.8 g/dL (6.3-8.2) L 06/15/16 05:18 Albumin 2.2 g/dL (3.5-5.0) L 06/15/16 05:18 Prealbumin 5 mg/dL (18-36) L 06/13/16 05:35 Urine Color Yellow 06/13/16 03:00 Urine Appearance Clear (Clear) 06/13/16 03:00 Urine pH 5.5 (5.0-8.0) 06/13/16 03:00 Ur Specific [place] 1.016 (1.001-1.035) 06/13/16 03:00 Urine Protein Negative (Negative) 06/13/16 03:00 Urine Glucose (UA) Negative (Negative) 06/13/16 03:00 Urine Ketones Trace (Negative) H 06/13/16 03:00 Urine Blood Negative (Negative) 06/13/16 03:00 Urine Nitrite Negative (Negative) 06/13/16 03:00 Urine Bilirubin Negative (Negative) 06/13/16 03:00 Urine Urobilinogen 6.0 mg/dL (<2.0) 06/13/16 03:00 Ur Leukocyte Esterase Negative (Negative) 06/13/16 03:00 Blood Type O Positive 05/23/16 09:34 Blood Type Recheck No 05/23/16 09:34 Antibody Screen NEGATIVE 05/23/16 09:34 Spec Expiration Date 05/29/16 3249 05/23/16 09:34 Laboratory Results WBC 16.5 k/uL (3.8-10.6) H 06/15/16 05:18 RBC 5.19 m/uL (4.30-5.90) 06/15/16 05:18 Hgb 14.5 gm/dL (13.0-17.5) 06/15/16 05:18 Hct 45.3 % (39.0-53.0) 06/15/16 05:18 MCV 87.4 fL (80.0-100.0) 06/15/16 05:18 MCH 28.0 pg (25.0-35.0) 06/15/16 05:18 MCHC 32.0 g/dL (31.0-37.0) 06/15/16 05:18 RDW 14.4 % (11.5-15.5) 06/15/16 05:18 Plt Count 385 k/uL (150-450) 06/15/16 05:18 Neutrophils % 88 % 06/15/16 05:18 Lymphocytes % 4 % 06/15/16 05:18 Monocytes % 7 % 06/15/16 05:18 Eosinophils % 1 % 06/15/16 05:18 Basophils % 0 % 06/15/16 05:18 Neutrophils # 14.5 k/uL (1.3-7.7) H 06/15/16 05:18 Lymphocytes # 0.6 k/uL (1.0-4.8) L 06/15/16 05:18 Monocytes # 1.1 k/uL (0-1.0) H 06/15/16 05:18 Eosinophils # 0.1 k/uL (0-0.7) 06/15/16 05:18 Basophils # 0.0 k/uL (0-0.2) 06/15/16 05:18 PT 12.6 sec (9.0-12.0) H 06/13/16 05:35 INR 1.3 (<1.1) 06/13/16 05:35 Sodium 140 mmol/L (137-145) 06/15/16 05:18 Potassium 4.3 mmol/L (3.5-5.1) 06/15/16 05:18 Chloride 107 mmol/L (98-107) 06/15/16 05:18 Carbon Dioxide 25 mmol/L (22-30) 06/15/16 05:18 Anion Gap 8 mmol/L 06/15/16 05:18 BUN 26 mg/dL (9-20) H 06/15/16 05:18 Creatinine 0.95 mg/dL (0.66-1.25) 06/15/16 05:18 Est GFR (MDRD) Af Amer >60 (>60 ml/min/1.73 sqM) 06/15/16 05:18 Est GFR (MDRD) Non-Af >60 (>60 ml/min/1.73 sqM) 06/15/16 05:18 Glucose 96 mg/dL (74-99) 06/15/16 05:18 POC Glucose (mg/dL) 119 mg/dL (75-99) H 06/01/16 21:15 POC Glu [employer] ID Juanis Garcia 06/01/16 21:15 Calcium 8.6 mg/dL (8.4-10.2) 06/15/16 05:18 Phosphorus 2.9 mg/dL (2.5-4.5) 06/14/16 06:06 Magnesium 2.1 mg/dL (1.6-2.3) 06/15/16 05:18 Total Bilirubin 0.8 mg/dL (0.2-1.3) 06/15/16 05:18 AST 17 U/L (17-59) 06/15/16 05:18 ALT 28 U/L (21-72) 06/15/16 05:18 Alkaline Phosphatase 72 U/L (38-126) 06/15/16 05:18 Total Protein 4.8 g/dL (6.3-8.2) L 06/15/16 05:18 Albumin 2.2 g/dL (3.5-5.0) L 06/15/16 05:18 Prealbumin 5 mg/dL (18-36) L 06/13/16 05:35 Urine Color Yellow 06/13/16 03:00 Urine Appearance Clear (Clear) 06/13/16 03:00 Urine pH 5.5 (5.0-8.0) 06/13/16 03:00 Ur Specific [place] 1.016 (1.001-1.035) 06/13/16 03:00 Urine Protein Negative (Negative) 06/13/16 03:00 Urine Glucose (UA) Negative (Negative) 06/13/16 03:00 Urine Ketones Trace (Negative) H 06/13/16 03:00 Urine Blood Negative (Negative) 06/13/16 03:00 Urine Nitrite Negative (Negative) 06/13/16 03:00 Urine Bilirubin Negative (Negative) 06/13/16 03:00 Urine Urobilinogen 6.0 mg/dL (<2.0) 06/13/16 03:00 Ur Leukocyte Esterase Negative (Negative) 06/13/16 03:00 Blood Type O Positive 05/23/16 09:34 Blood Type Recheck No 05/23/16 09:34 Antibody Screen NEGATIVE 05/23/16 09:34 Spec Expiration Date 05/29/16 2334 05/23/16 09:34 Microbiology 06/13/16 03:00 Urine,Clean Catch Urine Culture - Final Assessment and Plan (1) Non-small cell carcinoma of right lung Narrative/Plan: Patient relates he is feeling slightly better. He is attempting to eat. He is going slow so he doesn't have a difficulty with nausea and emesis. Daily yogurt for me. He has evidence of the squamous cell carcinoma the lung with the recent extensive surgical intervention was some ongoing air leak. The leukocytosis appears to be reactive. The patient does not appear to be acutely infected at this point in time. She was not eating. His guardians and agreed that PEG tube will be placed. Attempt for some feeding and then some further therapy if possible. He was able to recover he might be able to have some further interventions for his cancer otherwise may be a candidate for hospice. Status: Acute (2) Leukocytosis Status: Acute
[2016-06-15] MEDS: ONDANSETRON 4 MG/2 ML VIAL IVP PRN (22:42)
--- NOTE | 2016-06-15 23:21 | PN ---
DATE OF SERVICE: 06/15/2016 ATTENDING NOTE: This patient was seen and examined by me earlier today. I read the note of my nurse practitioner Ms. Rivera and agree with the same except as described below. Patient's chest tube remains in place. Lying in bed, tired-appearing. Still not eating much. On examination, lungs have right-sided decreased breath sounds. Patient is arousable, answers questions. ABDOMEN: Gastrostomy tube in place. ASSESSMENT: 1. Right pneumothorax. Chest tube remains in place. 2. New PEG tube placed for protein-calorie malnutrition. PLAN: Continue current medication and treatment plan. PEG tube feeding should be resumed when okay with Dr. Sweet. Care was discussed with the patient.
[2016-06-16] MEDS: ceFAZolin 2 GM in SODIUM CHLORIDE 0.9% 100 ML IVPB SCH ×2 (04:00→11:53)
[2016-06-16] MEDS: KETOROLAC 30 MG/ML 1 ML VIAL IVP SCH (06:11)
[2016-06-16 06:20] LABS: Basophils % (A) 0 %; CH 28.4; CHCM 32.6; Eosinophils # (A) 0.1 k/uL (0-0.7); Eosinophils % (A) 0 %; HCT 43.2 % (39.0-53.0); HDW 2.96; HGB 13.9 gm/dL (13.0-17.5); Luc # (Auto) 0.11; Luc % (Auto) 1; Lymphocytes # (A) 0.5 k/uL (1.0-4.8); Lymphocytes % (A) 4 %; MCH 28.2 pg (25.0-35.0); MCHC 32.3 g/dL (31.0-37.0); MCV 87.5 fL (80.0-100.0); Mean Platelet Volume 6.8; Monocytes # (A) 0.6 k/uL (0-1.0); Monocytes % (A) 5 %; Neutrophils % (A) 90 %; RBC 4.94 m/uL (4.30-5.90); RDW 14.4 % (11.5-15.5); WBC 13.3 k/uL (3.8-10.6); WBC (Perox) 13.57
[2016-06-16 06:27] LABS: ALT 28 U/L (21-72); AST 18 U/L (17-59); Alkaline Phosphatase 68 U/L (38-126); Anion Gap 12 mmol/L; Blood Urea Nitrogen 23 mg/dL (9-20); Calcium 8.4 mg/dL (8.4-10.2); Carbon Dioxide 21 mmol/L (22-30); Chloride 108 mmol/L (98-107); Glucose 90 mg/dL (74-99); Non-African American GFR(MDRD) >60 (>60 ml/min/1.73 sqM); Potassium 3.7 mmol/L (3.5-5.1); Sodium 141 mmol/L (137-145); Total Bilirubin 0.5 mg/dL (0.2-1.3); Total Protein 4.5 g/dL (6.3-8.2)
[2016-06-16] MEDS: PANTOPRAZOLE 40 MG TABLET PO SCH (06:33)
--- NOTE | 2016-06-16 07:13 | XR ---
EXAMINATION TYPE: XR chest 1V portable DATE OF EXAM: 06/16/2016 6:59 AM COMPARISON: Prior chest x-ray 15 Jun 2016 HISTORY: Pneumothorax TECHNIQUE: Single frontal view of the chest is obtained. FINDINGS: Similar findings to prior exam, patient is rotated. Right-sided chest tube remains in plac e, there is subcutaneous emphysema. There may be trapped lung, persistent pneumothorax at the right l alfredito base. No evident effusion. Airspace disease present in the right lung, correlate to exclude pneum onia. Heart size felt to be stable. IMPRESSION: Similar findings.
--- NOTE | 2016-06-16 07:48 | P.PN ---
<Ernestine Earl - Last Filed: 06/16/16 07:44> Subjective Principal diagnosis: Non-small cell carcinoma right lower lobe of the lung POD #19 right thoracotomy, right lower and middle lobectomy, mediastinal lymph node dissection, cryoablation of intercostal nerves IV through VIII POD #1 placement of PEG tube Pt currently resting in bed in no apparent distress. Denies pain. No new questions or concerns. Objective - Vital Signs Vital signs: Vital Signs Temp 97.1 F L 06/16/16 04:00 Pulse 73 06/16/16 04:00 Resp 18 06/16/16 04:00 BP 122/61 06/16/16 04:00 Pulse Ox 97 06/16/16 04:00 Intake & Output 06/15/16 06/16/16 06/16/16 18:59 06:59 18:59 Intake Total 100 675 Output Total 152 213 Balance -52 462 Weight 56.6 kg 57.8 kg Intake: IV 100 675 Sodium Chloride 0.9% 1, 675 000 ml @ 75 mls/hr IV . [id number] [facility] Rx#:[id number] Output: Chest Tube Drainage 150 213 Chest Tube Right 150 213 Stool 2 Other: Voiding Method Urinal Urinal # Voids 1 # Bowel Movements 1 - Constitutional General appearance: Present: cooperative, no acute distress, thin - Respiratory Details: Lungs sounds diminished bilaterally. Respirations even, nonlabored. Currently on room air with oxygen saturation 97%. Right pleural chest tube to -20 cm wall suction, drained 100 mL serous fluid in the last 24 hours. Persistent air leak present. - Cardiovascular Details: S1, S2 present. Regular rate and rhythm, normal sinus rhythm on telemetry. - Gastrointestinal Gastrointestinal Comment(s): Abdomen soft, nontender, nondistended. Active bowel sounds 4 quadrants. PEG tube present. - Genitourinary Genitourinary Comment(s): Continues to void clear, yellow urine. - Musculoskeletal Musculoskeletal: Present: generalized weakness - Psychiatric Psychiatric: Present: A&O x's 3, appropriate affect, intact judgment & insight - Allied health notes Allied health notes reviewed: nursing - Labs CBC & Chem 7: 06/16/16 05:21 06/16/16 05:21 Labs: Abnormal Lab Results - Last 24 Hours (Table) 06/16/16 06/16/16 Range/Units 05:21 05:21 WBC 13.3 H (3.8-10.6) k/uL Neutrophils # 12.0 H (1.3-7.7) k/uL Lymphocytes # 0.5 L (1.0-4.8) k/uL Chloride 108 H (98-107) mmol/L Carbon Dioxide 21 L (22-30) mmol/L BUN 23 H (9-20) mg/dL Total Protein 4.5 L (6.3-8.2) g/dL Albumin 2.1 L (3.5-5.0) g/dL - Imaging and Cardiology Chest x-ray: image reviewed Assessment and Plan (1) Non-small cell carcinoma of right lung Status: Acute Plan: 1. PEG tube placed yesterday. Will consult dietitian to begin tube feeding today 2. Increase activity in his room, physical therapy following. 3. Encourage incentive spirometry use. 4. CT to remain on suction. 5. Pain management with ordered medication regimen. 6. Comorbid medical problems to be managed by internal medicine service. 7. Discharge planning in progress, patient will need to go to a facility upon discharge 8. More recommendations as patient progresses. Time with Patient: Greater than 30 <Rudi Gutierrez - Last Filed: 06/16/16 19:13> Objective - Vital Signs Vital signs: Vital Signs Temp 97.4 F L 06/16/16 12:00 Pulse 80 06/16/16 19:09 Resp 16 06/16/16 12:24 BP 154/74 06/16/16 12:00 Pulse Ox 96 06/16/16 12:00 Intake & Output 06/16/16 06/16/16 06/17/16 06:59 18:59 06:59 Intake Total 675 20 900 Output Total 213 98 Balance 462 -78 900 Weight 57.8 kg Intake: IV 675 900 Sodium Chloride 0.9% 1, 675 900 000 ml @ 75 mls/hr IV . [id number] [facility] Rx#:[id number] Oral 0 Tube Feeding 20 Output: Chest Tube Drainage 213 96 Chest Tube Right 213 96 Stool 2 Other: Voiding Method Urinal Urinal - Labs CBC & Chem 7: 06/16/16 05:21 06/16/16 05:21 Labs: Abnormal Lab Results - Last 24 Hours (Table) 06/16/16 06/16/16 Range/Units 05:21 05:21 WBC 13.3 H (3.8-10.6) k/uL Neutrophils # 12.0 H (1.3-7.7) k/uL Lymphocytes # 0.5 L (1.0-4.8) k/uL Chloride 108 H (98-107) mmol/L Carbon Dioxide 21 L (22-30) mmol/L BUN 23 H (9-20) mg/dL Total Protein 4.5 L (6.3-8.2) g/dL Albumin 2.1 L (3.5-5.0) g/dL Assessment and Plan Plan: The patient was seen and examined. I agree with the above assessment and plan. He continues to have significant leak from his chest tube. His right lung does not appear to be complete expanded on today's chest x-ray. We will begin tube feeds.
[2016-06-16] MEDS: IPRATROPIUM-ALBUTEROL 3 ML NEB IH SCH ×4 (08:45→18:58)
--- NOTE | 2016-06-16 11:33 | PN ---
DATE OF SERVICE: 06/16/2016 PRESENTING COMPLAINT: Right partial lobectomy. INTERVAL HISTORY: This is a 71-year-old male who is status post right middle and lower lobectomy. Right chest wall chest tube remains in place with a positive air leak. Patient continues to complain of poor appetite. However, states he is attempting to try and eat even though he does not feel like it. On 06/15/2016, patient was taken to OR for placement of gastrostomy tube to aid patient in nutritional status improvement. Patient is aware of feeding tube. Patient has no complaints this morning, awake, alert, able to answer questions. No acute distress noted or voiced. Review of systems for constitutional, cardiovascular, gastrointestinal, pulmonary with relevant findings as above. CURRENT MEDICATIONS: [place], DuoNeb, diltiazem, ( ). PHYSICAL EXAM: VITAL SIGNS: Temperature 97.1, pulse 73, respiratory rate 18, blood pressure 122/61, oxygen saturation 97% on room air GENERAL APPEARANCE: Patient lying in bed, calm, cooperative. No acute distress noted or voiced. Patient has no complaints at this time. EYES: Pupils equal. Conjunctivae normal. NECK: JVD not raised. Mass not palpable. LUNGS: Right lung sounds diminished with coarse breath sounds noted throughout, left diminished at the base. RESPIRATORY: Effort normal. Unlabored. CARDIOVASCULAR: S1, S2 normal. No edema noted. ABDOMEN: Soft, nontender. Liver and spleen not palpable. PSYCHIATRIC: Alert and oriented x3. Mood and affect are normal. INVESTIGATIONS: White blood cell count 13.3, hemoglobin 13.9, platelet count 380. Sodium 141, potassium 3.7. Total protein 4.5. Albumin 2.1. Chest x-ray dated 06/16/2016 reveals similar findings to previous exam. Right chest tube remains in place, subcutaneous emphysema. ASSESSMENT: 1. Right pneumothorax. Chest tube remains in place. 2. New PEG tube placed for protein calorie malnutrition. 3. Other medical conditions, stable. 4. Emphysema in current smoker. 5. Chronic nicotine dependence, patient is ( ) smoker. 6. Essential hypertension. 7. Gastroesophageal reflux disease. 8. Chronic alcohol dependence. Patient's delirium withdrawal has since resolved. 9. Subcutaneous emphysema remains in the right upper chest wall. PLAN: Continue current medication and treatment plan. PEG tube feeding should be resumed when okay with Dr. Sweet. Case was discussed with the patient. Patient was seen and examined by nurse practitioner, Zainab Rivera and all elements of the case was discussed with the attending Dr. Albert.
[2016-06-16] MEDS: NICOTINE 21MG/24HR PATCH TRANSDERM SCH (13:21)
[2016-06-16] MEDS: ASPIRIN 81 MG CHEW PO SCH (13:22)
[2016-06-16] MEDS: BISACODYL 10 MG SUPP RECTAL SCH (13:22)
[2016-06-16] MEDS: DILTIAZEM CD 240 MG CAP.ER.24H PO SCH (13:22)
[2016-06-16] MEDS: ATORVASTATIN 40 MG TAB PO SCH (13:22)
[2016-06-16] MEDS: MEGESTROL 400 MG/10 ML CUP PO SCH (13:23)
[2016-06-16] MEDS: METOPROLOL TARTRATE 50 MG TAB PO SCH ×3 (13:23→21:49)
[2016-06-16] MEDS: HYDROCHLOROTHIAZIDE 25 MG TAB PO SCH (13:23)
[2016-06-16] MEDS: HEPARIN SODIUM,PORCINE 5,000 UNIT/ML 1 ML VIAL SQ SCH ×2 (13:23→21:49)
[2016-06-16] MEDS: SERTRALINE 50 MG TAB PO SCH (13:24)
[2016-06-16] MEDS: SODIUM CHLORIDE 0.9% 1,000 ML IV SCH (13:27)
--- NOTE | 2016-06-16 17:04 | PN ---
This is a very pleasant 71-year-old black male with a history of squamous cell carcinoma of the lung. He had a right middle and right lower lobectomy performed by Dr. Negron on May 27. Since that time he has been struggling with a number of things, including poor nutrition. Yesterday he had a PEG tube placed. The other big issue is the fact that he has had a persistent air leak and a right-sided pneumothorax. The x-rays have been similar the last couple of days. He has subcutaneous emphysema on that right side. The right lung is not fully expanded. There is a large pneumothorax. Chest tube remains in place. He could actually even have a bronchial stump leak. Anyway, from the clinical standpoint the patient is doing reasonably well. He really denies much in the way of additional shortness of breath or difficulty breathing than before. Not much cough. No phlegm. No fever. No chills. Current vital signs include a temperature 97.4, heart rate 80, respiratory rate 18, blood pressure 133/67, mean 89, room-air saturation 97%. Appears in no acute distress. HEENT examination is grossly unremarkable. Mucous membranes are moist. NECK: Supple. Full range of motion. No adenopathy. Cardiovascular examination reveals regular rhythm and rate. S1, S2 normal. No heart murmur. Lungs reveal diminished breath sounds on the right. Subcutaneous emphysema on the right. A few scattered rhonchi bilaterally. No crackles. ABDOMEN: Soft. Bowel sounds are heard. Extremities are intact. No cyanosis, clubbing or edema. He still has a persistent right-sided air leak. Subcutaneous emphysema is no worse, but it is certainly not much better. Labs are reviewed. White count 13.3, hemoglobin 13.9, hematocrit 43.9, platelet count 380,000. Sodium is 141, potassium 3.7, chloride 108, CO2 21. BUN and creatinine were 23 and 0.9. The rest of the labs look okay. X-rays are reviewed. ASSESSMENT: 1. Squamous cell carcinoma of the lung, status post right middle lobectomy and right lower lobectomy, postoperative day #20. 2. 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 3. Significant subcutaneous emphysema on the right. 4. Chronic and ongoing tobacco dependence. 5. Hypertension. 6. Gastroesophageal reflux disease. PLAN: The patient will continue with the current modalities. Will continue to follow closely. He has a persistent air leak. He has significant subcutaneous emphysema on the right side. No additional recommendations are made. Bronchoscopy could be considered to rule out bronchial stump leak.
--- NOTE | 2016-06-16 19:17 | P.PN ---
Progress Note - Text Patient is tolerating tube feeds and denies any abdominal pain. Will follow as needed.
--- NOTE | 2016-06-16 20:57 | PN ---
DATE OF SERVICE: 06/16/2016 ATTENDING NOTE: This patient was seen examined by me today. I reviewed the note of my nurse practitioner, Ms. Rivera. Additional findings as below. Patient is status post right lung lobectomy. Still not eating much. Status post PEG tube. Weak and tired. On exam, lungs have decreased breath sounds. ( ) present. PSYCHIATRY: Answers simple questions. INVESTIGATIONS: White count 13.3. Albumin 2.1. ASSESSMENT: 1. Right pneumothorax. Chest tube remains in place. 2. PEG tube placed for malnutrition. 3. Emphysema in a current smoker. 4. Chronic nicotine dependence. 5. Essential hypertension. 6. Gastroesophageal reflux disease. 7. Chronic alcohol dependence, status post delirium tremens. 8. Subcutaneous emphysema on the right upper chest wall. 9. Medical debility. Patient is rather weak and tired. 10. Moderate protein-calorie malnutrition from decreased oral intake. 11. Right middle and lower lobectomy of the lung with pathology showing squamous cell carcinoma. PLAN: Continue the current medication and treatment plan. Prognosis guarded. Patient will probably need inpatient rehab. No antibiotics, per Dr. Spears. Will decrease patient's nicotine patch to 14.
[2016-06-16] MEDS: HYDROcodone/APAP 5-325MG 1 EACH TAB PO PRN (21:48)
[2016-06-16] MEDS: NICOTINE 14MG/24HR PATCH TRANSDERM SCH (21:49)
--- NOTE | 2016-06-16 23:28 | P.PN ---
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 Patient apparently presented while in [facility] with hemoptysis and workup occurred from there after he was released from [facility] he underwent workup. Chest x-ray in February showed a large right lower lobe mass. PET scan showed no evidence of metastasis. Bronchoscopy was positive for squamous carcinoma. 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 He was admitted on 05/27/2016 underwent right thoracotomy, right lower and middle lobectomy, mediastinal lymph node dissection, cryo-ablation of intercostal nerves IV through VIII. It appears the patient was progressing as expected until around 05/30 and patient developed moderate right upper lobe pneumothorax with extensive subcutaneous emphysema his O2 saturation was well maintained. By June 10 he had complete reexpansion and subsequently developed some prerenal azotemia which have subsequently stabilized. Patient has had increased weakness in very poor oral intake and is followed by dietitian. Patient was seen while he is in bed. He denies any shortness of breath but is not doing much walking. He states he tires very quickly. Regarding his appetite, completely stopped eating. Has a PEG tube is in place today. He denies any vomiting, diarrhea. He denies dysuria. He states his pain is about 9-10/10 all the time and does not seem to be improved with medications. Regarding leukocytosis, white count has been consistently elevated since June 07 with peak at 18.2 on June 12. He is slightly improved today at 15.5. He has been afebrile during this hospitalization. Patient was on cefazolin during the perioperative period but none since that time. He has been started on Megace for appetite. His weight has decreased by 6 kg since arch of this year. Prealbumin is only 5. His most recent chest x-ray is showing persistent right pneumothorax with right apical component appearing slightly smaller. Urinalysis done on June 13 was clear, nitrite and leukoesterase negative. Objective - Vital Signs Vital signs: Vital Signs Temp 97.6 F 06/16/16 16:00 Pulse 80 06/16/16 19:09 Resp 18 06/16/16 16:00 BP 151/75 06/16/16 16:00 Pulse Ox 100 05/11/17 16:00 Intake & Output 06/16/16 06/16/16 06/17/16 06:59 18:59 06:59 Intake Total 675 20 900 Output Total 213 99 Balance 462 -79 900 Weight 57.8 kg Intake: IV 675 900 Sodium Chloride 0.9% 1, 675 900 000 ml @ 75 mls/hr IV . [id number] [facility] Rx#:[id number] Oral 0 Tube Feeding 20 Output: Chest Tube Drainage 213 96 Chest Tube Right 213 96 Stool 3 Other: Voiding Method Urinal Urinal - Exam Gen: This is a 71-year-old thin -Citizen Of [place] male area and he is laying in bed and appears to be in no acute distress. HEENT: Head is atraumatic, normocephalic. Pupils equal, round. Sclerae is anicteric. NECK: Supple. No JVD. No lymphadenopathy. LUNGS: Few crackles on the right side. Chest tube to the right chest wall. Dressing in place over chest incision. No intercostal retractions. HEART: Regular rate and rhythm. No murmur. ABDOMEN: Soft. Bowel sounds are present. No masses. No tenderness. PEG tube has then placed. is nontender without drainage. EXTREMITIES: No pedal edema. No calf tenderness. NEUROLOGICAL: Patient is awake, alert and oriented x2. Cranial nerves 2 through 12 are grossly intact. - Labs CBC & Chem 7: 06/16/16 05:21 06/16/16 05:21 Labs: Abnormal Lab Results - Last 24 Hours (Table) 06/16/16 06/16/16 Range/Units 05:21 05:21 WBC 13.3 H (3.8-10.6) k/uL Neutrophils # 12.0 H (1.3-7.7) k/uL Lymphocytes # 0.5 L (1.0-4.8) k/uL Chloride 108 H (98-107) mmol/L Carbon Dioxide 21 L (22-30) mmol/L BUN 23 H (9-20) mg/dL Total Protein 4.5 L (6.3-8.2) g/dL Albumin 2.1 L (3.5-5.0) g/dL Laboratory Results WBC 13.3 k/uL (3.8-10.6) H 06/16/16 05:21 RBC 4.94 m/uL (4.30-5.90) 06/16/16 05:21 Hgb 13.9 gm/dL (13.0-17.5) 06/16/16 05:21 Hct 43.2 % (39.0-53.0) 06/16/16 05:21 MCV 87.5 fL (80.0-100.0) 06/16/16 05:21 MCH 28.2 pg (25.0-35.0) 06/16/16 05:21 MCHC 32.3 g/dL (31.0-37.0) 06/16/16 05:21 RDW 14.4 % (11.5-15.5) 06/16/16 05:21 Plt Count 380 k/uL (150-450) 06/16/16 05:21 Neutrophils % 90 % 06/16/16 05:21 Lymphocytes % 4 % 06/16/16 05:21 Monocytes % 5 % 06/16/16 05:21 Eosinophils % 0 % 06/16/16 05:21 Basophils % 0 % 06/16/16 05:21 Neutrophils # 12.0 k/uL (1.3-7.7) H 06/16/16 05:21 Lymphocytes # 0.5 k/uL (1.0-4.8) L 06/16/16 05:21 Monocytes # 0.6 k/uL (0-1.0) 06/16/16 05:21 Eosinophils # 0.1 k/uL (0-0.7) 06/16/16 05:21 Basophils # 0.0 k/uL (0-0.2) 06/16/16 05:21 PT 12.6 sec (9.0-12.0) H 06/13/16 05:35 INR 1.3 (<1.1) 06/13/16 05:35 Sodium 141 mmol/L (137-145) 06/16/16 05:21 Potassium 3.7 mmol/L (3.5-5.1) 06/16/16 05:21 Chloride 108 mmol/L (98-107) H 06/16/16 05:21 Carbon Dioxide 21 mmol/L (22-30) L 06/16/16 05:21 Anion Gap 12 mmol/L 06/16/16 05:21 BUN 23 mg/dL (9-20) H 06/16/16 05:21 Creatinine 0.90 mg/dL (0.66-1.25) 06/16/16 05:21 Est GFR (MDRD) Af Amer >60 (>60 ml/min/1.73 sqM) 06/16/16 05:21 Est GFR (MDRD) Non-Af >60 (>60 ml/min/1.73 sqM) 06/16/16 05:21 Glucose 90 mg/dL (74-99) 06/16/16 05:21 POC Glucose (mg/dL) 119 mg/dL (75-99) H 06/01/16 21:15 POC [employer] Professional Juanis Nolan 06/01/16 21:15 Calcium 8.4 mg/dL (8.4-10.2) 06/16/16 05:21 Phosphorus 2.9 mg/dL (2.5-4.5) 06/14/16 06:06 Magnesium 2.1 mg/dL (1.6-2.3) 06/15/16 05:18 Total Bilirubin 0.5 mg/dL (0.2-1.3) 06/16/16 05:21 AST 18 U/L (17-59) 06/16/16 05:21 ALT 28 U/L (21-72) 06/16/16 05:21 Alkaline Phosphatase 68 U/L (38-126) 06/16/16 05:21 Total Protein 4.5 g/dL (6.3-8.2) L 06/16/16 05:21 Albumin 2.1 g/dL (3.5-5.0) L 06/16/16 05:21 Prealbumin 5 mg/dL (18-36) L 06/13/16 05:35 Urine Color Yellow 06/13/16 03:00 Urine Appearance Clear (Clear) 06/13/16 03:00 Urine pH 5.5 (5.0-8.0) 06/13/16 03:00 Ur Specific Gary 1.016 (1.001-1.035) 06/13/16 03:00 Urine Protein Negative (Negative) 06/13/16 03:00 Urine Glucose (UA) Negative (Negative) 06/13/16 03:00 Urine Ketones Trace (Negative) H 06/13/16 03:00 Urine Blood Negative (Negative) 06/13/16 03:00 Urine Nitrite Negative (Negative) 06/13/16 03:00 Urine Bilirubin Negative (Negative) 06/13/16 03:00 Urine Urobilinogen 6.0 mg/dL (<2.0) 06/13/16 03:00 Ur Leukocyte Esterase Negative (Negative) 06/13/16 03:00 Blood Type O Positive 05/23/16 09:34 Blood Type Recheck No 05/23/16 09:34 Antibody Screen NEGATIVE 05/23/16 09:34 Spec Expiration Date 05/29/16 2334 05/23/16 09:34 Microbiology 06/13/16 03:00 Urine,Clean Catch Urine Culture - Final Assessment and Plan (1) Non-small cell carcinoma of right lung Narrative/Plan: Patient relates he is feeling slightly better. He is attempting to eat. He is going slow so he doesn't have a difficulty with nausea and emesis. Daily yogurt for me. He has evidence of the squamous cell carcinoma the lung with the recent extensive surgical intervention was some ongoing air leak. The leukocytosis appears to be reactive. The patient does not appear to be acutely infected at this point in time. She was not eating. His guardians and agreed that PEG tube will be placed. Attempt for some feeding and then some further therapy if possible. He was able to recover he might be able to have some further interventions for his cancer otherwise may be a candidate for hospice. Status: Acute (2) Leukocytosis Status: Acute
[2016-06-17 06:28] LABS: Basophils % (A) 0 %; CH 28.6; CHCM 33.1; Eosinophils # (A) 0.2 k/uL (0-0.7); Eosinophils % (A) 1 %; HCT 43.6 % (39.0-53.0); HDW 2.94; HGB 13.7 gm/dL (13.0-17.5); Luc % (Auto) 2; Lymphocytes # (A) 0.6 k/uL (1.0-4.8); Lymphocytes % (A) 6 %; MCH 27.3 pg (25.0-35.0); MCHC 31.4 g/dL (31.0-37.0); MCV 86.9 fL (80.0-100.0); Mean Platelet Volume 6.8; Monocytes # (A) 1.2 k/uL (0-1.0); Monocytes % (A) 11 %; Neutrophils # (A) 8.3 k/uL (1.3-7.7); Neutrophils % (A) 79 %; RBC 5.01 m/uL (4.30-5.90); RDW 14.2 % (11.5-15.5); WBC 10.4 k/uL (3.8-10.6); WBC (Perox) 10.84
[2016-06-17] MEDS: PANTOPRAZOLE 40 MG TABLET PO SCH (06:32)
[2016-06-17 06:42] LABS: ALT 20 U/L (21-72); AST 20 U/L (17-59); Alkaline Phosphatase 73 U/L (38-126); Anion Gap 6 mmol/L; Blood Urea Nitrogen 19 mg/dL (9-20); Calcium 8.5 mg/dL (8.4-10.2); Carbon Dioxide 26 mmol/L (22-30); Chloride 108 mmol/L (98-107); Glucose 101 mg/dL (74-99); Non-African American GFR(MDRD) >60 (>60 ml/min/1.73 sqM); Potassium 3.4 mmol/L (3.5-5.1); Sodium 140 mmol/L (137-145); Total Bilirubin 0.5 mg/dL (0.2-1.3); Total Protein 4.7 g/dL (6.3-8.2)
--- NOTE | 2016-06-17 07:25 | XR ---
EXAMINATION TYPE: XR chest 1V portable DATE OF EXAM: 06/17/2016 7:08 AM HISTORY: Shortness of breath. COMPARISON: 06/16/2016 TECHNIQUE: Single view of the chest is submitted. FINDINGS: Right-sided chest tube unchanged in position. No significant change in right-sided pneumothorax. Righ t basilar pleural-parenchymal opacity. Subcutaneous air along the right chest wall and into the right neck. The left lung is clear. The heart is stable. Hilar and mediastinal structures are within normal limits. Degenerative changes are seen of the dorsal spine. IMPRESSION: 1. Stable right-sided pneumothorax.
[2016-06-17] MEDS: HYDROcodone/APAP 5-325MG 1 EACH TAB PO PRN ×3 (08:24→21:24)
[2016-06-17] MEDS: MEGESTROL 400 MG/10 ML CUP PO SCH (08:26)
[2016-06-17] MEDS: ATORVASTATIN 40 MG TAB PO SCH (08:26)
[2016-06-17] MEDS: DILTIAZEM CD 240 MG CAP.ER.24H PO SCH (08:26)
[2016-06-17] MEDS: HEPARIN SODIUM,PORCINE 5,000 UNIT/ML 1 ML VIAL SQ SCH ×2 (08:26→21:25)
[2016-06-17] MEDS: ASPIRIN 81 MG CHEW PO SCH (08:26)
[2016-06-17] MEDS: NICOTINE 14MG/24HR PATCH TRANSDERM SCH (08:27)
[2016-06-17] MEDS: SERTRALINE 50 MG TAB PO SCH (08:27)
[2016-06-17] MEDS: METOPROLOL TARTRATE 50 MG TAB PO SCH ×3 (08:27→21:24)
[2016-06-17] MEDS: IPRATROPIUM-ALBUTEROL 3 ML NEB IH SCH ×4 (10:53→19:58)
--- NOTE | 2016-06-17 12:17 | PN ---
DATE OF SERVICE: 06/17/2016 PRESENTING COMPLAINT: Right partial lobectomy. INTERVAL HISTORY: This is a 71-year-old male who is status post right middle and lower lobectomy. Right chest wall chest tube remains in place with no air leak noted this morning. Patient complaining this morning of tenderness at the PEG tube site and complaints of his abdominal area hurting him. Tube feeding infusing with virtually no residual. Patient is awake, breakfast tray in front of him, encouraged patient to eat. Able to answer simple straightforward questions. Review of systems for constitutional, cardiovascular, gastrointestinal, pulmonary, with relevant findings as above. CURRENT MEDICATIONS: [place], DuoNeb, diltiazem. PHYSICAL EXAM: VITAL SIGNS: Temperature 98.1, pulse 79, respiratory rate 16, blood pressure 156/80, oxygen saturation 96%. GENERAL APPEARANCE: Patient is sitting up in bed, receiving morning medications along with the nurse and myself attempting to get him to eat the breakfast tray. Patient is uninterested in breakfast. Does complain of tenderness at the PEG tube site. EYES: Pupils equal. Conjunctivae are normal. NECK: JVD not raised. Mass not palpable. LUNGS: Right lung sounds diminished with coarse breath sounds noted throughout, left diminished at the bases. Respiratory effort normal, unlabored. CARDIOVASCULAR: S1, S2 normal. No edema noted. ABDOMEN: Soft, tender around the PEG tube site. Liver and spleen not palpable. PSYCHIATRIC: Alert and oriented x3. Mood and affect are normal. INVESTIGATIONS: White blood cell count 10.4, hemoglobin 13.7, platelet count 376, sodium 140, potassium 3.4, total protein 4.7, albumin 2.1. Chest x-ray dated 06/17/2016 reveals stable right-sided pneumothorax. ASSESSMENT: 1. Right pneumothorax. Chest tube remains in place. 2. PEG tube placed for malnutrition. 3. Emphysema in current smoker. 4. Chronic nicotine dependence. 5. Essential hypertension. 6. Gastroesophageal reflux disease. 7. Chronic alcohol dependence, status post delirium tremens. 8. Subcutaneous emphysema on the right upper chest wall. 9. Medical debility. Patient is rather weak and tired. 10. Moderate protein calorie malnutrition from decreased oral intake. 11. Right middle and lower lobectomy of the lung with pathology showing squamous cell carcinoma. PLAN: Continue current medications and treatment plan. Prognosis guarded, likely patient will require inpatient rehab. At this time, no antibiotics recommended per Dr. Spears/YAO. Patient was seen and examined by nurse practitioner, Zainab Rivera and all elements of the case discussed with attending, Dr. Albert.
[2016-06-17] MEDS: BISACODYL 10 MG SUPP RECTAL SCH (12:35)
[2016-06-17] MEDS: POTASSIUM CHLORIDE ER 20 MEQ TAB.ER PO SCH ×2 (12:39→12:45)
--- NOTE | 2016-06-17 14:29 | P.PN ---
<Good Russell - Last Filed: 06/17/16 13:40> Progress Note - Text CV Surgery Nursing Principal diagnosis: Non-small cell carcinoma right lower lobe of the lung POD #20 right thoracotomy, right lower and middle lobectomy, mediastinal lymph node dissection, cryoablation of intercostal nerves IV through VIII POD #2 placement of PEG tube Patient awake and alert, no distress noted. The patient states that he has no appetite, assitance offered to help him eat and the patient states he could not eat at this time. He denies complaints of any pain. He has a flat affect. Vital Signs: Afebrile Vital Signs - 24 hr 06/16/16 06/16/16 06/16/16 15:11 15:29 16:00 Temperature 97.6 F Pulse Rate 80 80 Pulse Rate [ 78 Pulse Oximetery ] Respiratory 18 Rate Blood Pressure 151/75 [Left Arm] Blood Pressure [Right Arm Supine] Blood Pressure [Right Arm] O2 Sat by Pulse 100 Oximetry 06/16/16 06/16/16 06/16/16 18:58 19:09 20:00 Temperature 97.1 F L Pulse Rate 76 80 Pulse Rate [ 96 Pulse Oximetery ] Respiratory 18 Rate Blood Pressure [Left Arm] Blood Pressure 136/77 [Right Arm Supine] Blood Pressure [Right Arm] O2 Sat by Pulse 97 Oximetry 06/17/16 06/17/16 06/17/16 00:00 04:00 08:23 Temperature 97.1 F L 97 F L 98.1 F Pulse Rate Pulse Rate [ 79 76 79 Pulse Oximetery ] Respiratory 18 18 16 Rate Blood Pressure [Left Arm] Blood Pressure 140/73 155/77 [Right Arm Supine] Blood Pressure 156/80 [Right Arm] O2 Sat by Pulse 96 96 96 Oximetry 06/17/16 06/17/16 06/17/16 10:54 11:07 12:00 Temperature 98.7 F Pulse Rate 84 84 Pulse Rate [ 86 Pulse Oximetery ] Respiratory 20 Rate Blood Pressure [Left Arm] Blood Pressure [Right Arm Supine] Blood Pressure 157/79 [Right Arm] O2 Sat by Pulse 96 Oximetry Labs: Short CBC 06/17/16 Range/Units 05:37 WBC 10.4 (3.8-10.6) k/uL Hgb 13.7 (13.0-17.5) gm/dL Hct 43.6 (39.0-53.0) % Plt Count 376 (150-450) k/uL Neutrophils # 8.3 H (1.3-7.7) k/uL BMP 06/17/16 05:37 Sodium 140 Potassium 3.4 L Chloride 108 H Carbon Dioxide 26 BUN 19 Creatinine 0.74 Glucose 101 H Calcium 8.5 Liver Function 06/17/16 Range/Units 05:37 Total Bilirubin 0.5 (0.2-1.3) mg/dL AST 20 (17-59) U/L ALT 20 L (21-72) U/L Alkaline Phosphatase 73 (38-126) U/L Albumin 2.1 L (3.5-5.0) g/dL Lungs: Few scattered rhonchi to his right lobe, diminished to his bilateral bases. Essentially clear to his left lobes. Respirations are symmetrical and unlabored. O2 sat: 96% on room air. I/S: 750 mL, reviewed with the patient the importance of using his incentive spirometry every hour while awake. The patient demonstrated proper use of his symptoms spirometry but will need further coaching and encouragement on the use of his incentive spirometry. Heart: S1S2, regular rhythm and rate, positive systolic murmur heard best over his right sternal border second intercostal space. Remote telemetry showing normal sinus rhythm heart rate 85. Right chest incision clean dry and well approximated. No drainage noted. Dressing is clean dry and intact. Sequential compression devices in place to his bilateral lower extremity Jake. Abdomen: Soft, Positive bowel sounds present in all 4 quadrants. PEG tube site clean dry and intact. Jevity 1.5-calorie infusing at 20 mL per hour. He denies nausea. His last bowel movement was on 06/15/2016. U/O: Adequate, patient having episodes of incontinence. Chest Tubes: Right pleural chest tube with intermittent air leak. Draining thin serous drainage. 70 mL output in the last 8 hours, 300 mL output in the last 24 hours. 24 hr Total: Intake & Output 06/15/16 06/16/16 06/17/16 06/18/16 06:59 06:59 06:59 06:59 Intake Total 2460 775 1080 210 Output Total 1394 365 259 60 Balance 1066 410 821 150 Weight 56.6 kg 57.8 kg 60.5 kg 60.5 kg Active Medications Hydrocodone Bitart/Acetaminophen ([place] 5-325) 1 each PO Q4HR PRN PRN Reason: Moderate Pain Last Admin: 06/17/16 08:24 Dose: 1 each Hydrocodone Bitart/Acetaminophen ([place] 5-325) 2 each PO Q4HR PRN PRN Reason: Pain Last Admin: 06/16/16 21:48 Dose: 2 each Albuterol/Ipratropium (Duoneb 0.5 Mg-3 Mg/3 Ml Soln) 3 ml IH RT-Q1H PRN PRN Reason: Shortness Of Breath Or Wheezing Albuterol/Ipratropium (Duoneb 0.5 Mg-3 Mg/3 Ml Soln) 3 ml IH RT-QID [facility] Last Admin: 06/17/16 10:54 Dose: 3 ml Aspirin (Aspirin) 81 mg PO DAILY [facility] Last Admin: 06/17/16 08:26 Dose: 81 mg Atorvastatin Calcium (Lipitor) 40 mg PO DAILY [facility] Last Admin: 06/17/16 08:26 Dose: 40 mg Bisacodyl (Dulcolax) 10 mg RECTAL DAILY [facility] Last Admin: 06/17/16 12:35 Dose: Not Given Diltiazem HCl (Cardizem Cd) 240 mg PO DAILY [facility] Last Admin: 06/17/16 08:26 Dose: 240 mg Heparin Sodium (Porcine) (Heparin) 5,000 unit SQ Q12HR [facility] Last Admin: 06/17/16 08:26 Dose: 5,000 unit Potassium Chloride 20 meq/Lidocaine HCl 20 mg/ Sodium Chloride 111 mls @ 55.5 mls/hr IVPB ONCE ONE Stop: 06/17/16 16:29 Megestrol Acetate (Megace) 400 mg PO DAILY [facility] Last Admin: 06/17/16 08:26 Dose: 400 mg Metoclopramide HCl (Reglan) 5 mg IVP Q4HR PRN PRN Reason: Nausea And Vomiting Metoprolol Tartrate (Lopressor) 50 mg PO TID [facility] Last Admin: 06/17/16 08:27 Dose: 50 mg Miscellaneous Information (Potassium Per Protocol) 1 each MISCELLANE DAILY PRN ; Protocol PRN Reason: Per Protocol Miscellaneous Information (Magnesium Per Protocol) 1 each MISCELLANE DAILY PRN ; Protocol PRN Reason: Per Protocol Nicotine (Habitrol 14mg/24hr Patch) 1 patch TRANSDERM DAILY [facility] Last Admin: 06/17/16 08:27 Dose: 1 patch Nicotine Polacrilex (Nicorette Gum) 2 mg BUCCAL Q4HR PRN PRN Reason: Nicotine Cravings Ondansetron HCl (Zofran) 4 mg IVP Q8HR PRN PRN Reason: Nausea And Vomiting Last Admin: 06/15/16 22:42 Dose: 4 mg Pantoprazole Sodium (Protonix) 40 mg PO AC-BRKFST [facility] Last Admin: 06/17/16 06:32 Dose: Not Given Sertraline HCl (Zoloft) 50 mg PO DAILY [facility] Last Admin: 06/17/16 08:27 Dose: 50 mg Plan: 1. PEG tube has been placed, continue to increase to feeding to goal. We will increase the tube feeding rate to 30 mL per hour at this time. 2. Increase activity in his room, physical therapy following. 3. Encourage incentive spirometry use every hour while awake. 4. Chest tube to remain on suction, will attempt placed a chest tube to water seal in the a.m after review of his chest x-ray. 5. Pain management with ordered medication regimen. 6. Comorbid medical problems to be managed by internal medicine service. 7. Discharge planning in progress, patient will need to go to a rehabilitation facility upon discharge. 8. Continue Zoloft, continue Megace. 9. More recommendations as patient progresses. <Rudi Gutierrez - Last Filed: 06/17/16 15:17> Progress Note - Text The patient was seen and examined. I agree with the above assessment and plan. The air leak in his chest tube is certainly improved. His chest x-ray also shows a smaller right pneumothorax. Consider placing his chest tube to waterseal tomorrow morning. In the meantime we will continue to increase his tube feeds towards goal as tolerated. Physical therapy is following the patient.
[2016-06-17] MEDS ORDERED: POTASSIUM CHLORIDE 20 MEQ, LIDOCAINE 2% INJ 20 MG in SODIUM CHLORIDE 0.9% 100 ML IVPB ONE (14:30)
--- NOTE | 2016-06-17 15:13 | P.CN ---
Psychiatric Consult - . Consult date: 06/17/16 Consult:: 06/17/16 14:53 DATE OF SERVICE: 06/17/2016 IDENTIFYING DATA: This patient is a 71-year-old and [place] who was admitted for non small cell carcinoma of right lower lobe of lung. POD # 20 right thoracotomy, right lower and middle lobectomy. POD #2 PEG Consulted for lack of appetite and wanting to be left alone. HISTORY OF PRESENT ILLNESS: The patient patient reports that he has a long problem, and he had surgery that he is healing. Patient denies feeling depressed and sad, down in the dumps, or blue. States that he has lost his appetite in the past and that it comes back on its own. Patient denies being anxious and worried about the future. Becomes a bit irritated when asked if he had thoughts of taking his own life. Patient reports that he wants to let his appetite just come back on its own. PAST PSYCHIATRIC HISTORY: Patient denies any past history of psychiatric illness or treatment.. PAST MEDICAL HISTORY: Patient with history of non-small cell carcinoma of the right lung, this apparently was discovered while in care home. Patient with history of CVA in 1999 with left leg and left upper extremity weakness and frequent falls.. ALLERGIES: No known drug allergies. CHEMICAL DEPENDENCY HISTORY: Patient reports that he has a history of heroin use , snorting denies IV. And reports that he also drinks was unable to give a quantity but review of the record suggests that he drinks daily, a pint and a half.. FAMILY PSYCHIATRIC HISTORY: Patient denied mental illness in his family. FAMILY CHEMICAL DEPENDENCY HISTORY:Patient denied substance abuse in his family. LEGAL HISTORY: Patient reports history of being in care home up until February of this year. SOCIAL HISTORY: Patient declines to answer questions of his wall taper helper or family members.. MENTAL STATUS EXAM: Patient alert and oriented 3, fair eye contact, groomed in hospital attire, frail, thin, cachectic,AA.. Speech low volume, decreased rate and production. Coherent, logical and goal directed thought process. No JAMAL, no FOI. No TB/TW/ TI Denied auditory and visual hallucinations. Denied paranoid ideation, delusions or IOR. Memory grossly intact Cognition average Mood dysphoric, affect constricted, congruent with mood. Denies suicidal ideation, denies homicidal ideation. Insight limited; Judgment grossly intact for treatment purposes. . IMPRESSIONS: Frail cachectic AA male, with recent surgery, cancer, hx of etoh use, severe, with poor to no appetite. Treated with zoloft, so likely past history of depression although it was repeatedly denied by patient. Depression could be cause of lack of appetite as well as desire to be left alone, however his cancer likely to be impacting as well. No evidence of psychosis. No danger to self or others PLAN: Zoloft is a good medication and very unlikely any medication is going to make significant difference, but Remeron or mirtazapine can sometimes cause weight gain. This could be used at bedtime along with zoloft. Recommend trial of low dose mirtazapine 7.5mg QHS.
--- NOTE | 2016-06-17 15:15 | PN ---
This is a very pleasant 71-year-old black male with a history of squamous cell carcinoma of the lung. He had a right middle and right lower lobectomy performed by Dr. Negron on May 27. Since that time he has been struggling with a number of things, including poor nutrition, a low albumin, PEG tube placement for nutrition, and a persistent air leak on the right side. The patient finally today did not have any air leak on deep breathing or coughing. Dr. Negron is hopeful that the opening, probably in the bronchial stump, has now closed. He is very, very weak, though. He has a very weak cough. Just looks very debilitated and very, very cachectic-appearing. He does not appear to be in any distress at this time. Current vital signs include temperature 98.7, heart rate 86, respiratory rate 20, blood pressure 57/79, room-air saturation 96%. No acute distress. Oriented x3. HEENT examination is grossly unremarkable. Mucous membranes are moist. No oral lesions. NECK: Supple. Full range of motion. No adenopathy or thyromegaly. Cardiovascular examination reveals regular rhythm and rate. S1, S2 normal. No S3, S4 or murmur. Lungs reveal diminished breath sounds on the right side. A few scattered rhonchi. He cannot really take a deep breath. Cough is very weak. He still has some chest congestion. ABDOMEN: Soft. Bowel sounds are heard. Extremities are intact. No cyanosis or clubbing. Slight edema. Skin is without rash. Neurologic examination is nonfocal. Labs are reviewed. White count 10.4; hemoglobin, hematocrit and platelet count are all normal. Sodium 140, potassium 3.4, chloride 108, CO2 26. BUN and creatinine were 19 and 0.74. Albumin is 2.1. Medications are reviewed. Microbiology is reviewed. Chest x-ray is reviewed. ASSESSMENT: 1. Squamous cell carcinoma of the lung, status post right middle lobectomy and right lower lobectomy, postoperative day #21. 2. 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 3. Significant subcutaneous emphysema on the right. 4. Chronic and ongoing tobacco dependence. 5. Hypertension. 6. Gastroesophageal reflux disease. PLAN: Hopefully the leak has stopped. Hopefully he can have the chest tube eventually removed after being placed on water seal. Will continue to follow. Prognosis is guarded. He is profoundly weak. His cough is very minimal.
--- NOTE | 2016-06-17 19:28 | P.PN ---
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 [facility] with [facility]sis and workup occurred from there after he was [facility] he underwent workup. Chest x-ray in February showed a large right lower lobe mass. PET scan showed no evidence of metastasis. Bronchoscopy was positive for squamous carcinoma. 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 He was admitted on 05/27/2016 underwent right thoracotomy, right lower and middle lobectomy, mediastinal lymph node dissection, cryo-ablation of intercostal nerves IV through VIII. It appears the patient was progressing as expected until around 05/30 and patient developed moderate right upper lobe pneumothorax with extensive subcutaneous emphysema his O2 saturation was well maintained. By June 10 he had complete reexpansion and subsequently developed some prerenal azotemia which have subsequently stabilized. Patient has had increased weakness in very poor oral intake and is followed by dietitian. Patient was seen while he is in bed. He denies any shortness of breath but is not doing much walking. He states he tires very quickly. Regarding his appetite, completely stopped eating. Has a PEG tube is in place today. He denies any vomiting, diarrhea. He denies dysuria. He states his pain is about 9-10/10 all the time and does not seem to be improved with medications. Regarding leukocytosis, white count has been consistently elevated since June 07 with peak at 18.2 on June 12. He is slightly improved today at 15.5. He has been afebrile during this hospitalization. Patient was on cefazolin during the perioperative period but none since that time. He has been started on Megace for appetite. His weight has decreased by 6 kg since arch of this year. Prealbumin is only 5. His most recent chest x-ray is showing persistent right pneumothorax with right apical component appearing slightly smaller. Urinalysis done on June 13 was clear, nitrite and leukoesterase negative. Doing modestly well since the PEG tube is in place. Now receiving 40 mls an hour and tolerating it well without nausea or abdominal pain. Objective - Vital Signs Vital signs: Vital Signs Temp 98.1 F 06/17/16 15:27 Pulse 88 06/17/16 17:15 Resp 16 06/17/16 17:06 BP 142/83 06/17/16 15:27 Pulse Ox 96 06/17/16 15:27 Intake & Output 06/17/16 06/17/16 06/18/16 06:59 18:59 06:59 Intake Total 1060 410 Output Total 160 60 Balance 900 350 Weight 60.5 kg 60.5 kg Intake: IV 900 Sodium Chloride 0.9% 1, 900 000 ml @ 75 mls/hr IV . [id number] [facility] Rx#:[id number] Oral 150 Tube Feeding 160 260 Output: Chest Tube Drainage 160 60 Chest Tube Right 160 60 Other: Voiding Method Urinal Urinal Diaper # Voids 3 # Bowel Movements 1 - Exam Gen: This is a 71-year-old thin -[place] male area and he is laying in bed and appears to be in no acute distress. HEENT: Head is atraumatic, normocephalic. Pupils equal, round. Sclerae is anicteric. NECK: Supple. No JVD. No lymphadenopathy. LUNGS: Few crackles on the right side. Chest tube to the right chest wall. Dressing in place over chest incision. No intercostal retractions. HEART: Regular rate and rhythm. No murmur. ABDOMEN: Soft. Bowel sounds are present. No masses. No tenderness. PEG tube has then placed. is nontender without drainage. EXTREMITIES: No pedal edema. No calf tenderness. NEUROLOGICAL: Patient is awake, alert and oriented x2. Cranial nerves 2 through 12 are grossly intact. - Labs CBC & Chem 7: 06/17/16 05:37 06/17/16 05:37 Labs: Abnormal Lab Results - Last 24 Hours (Table) 06/17/16 06/17/16 Range/Units 05:37 05:37 Neutrophils # 8.3 H (1.3-7.7) k/uL Lymphocytes # 0.6 L (1.0-4.8) k/uL Monocytes # 1.2 H (0-1.0) k/uL Potassium 3.4 L (3.5-5.1) mmol/L Chloride 108 H (98-107) mmol/L Glucose 101 H (74-99) mg/dL ALT 20 L (21-72) U/L Total Protein 4.7 L (6.3-8.2) g/dL Albumin 2.1 L (3.5-5.0) g/dL Laboratory Results WBC 10.4 k/uL (3.8-10.6) 06/17/16 05:37 RBC 5.01 m/uL (4.30-5.90) 06/17/16 05:37 Hgb 13.7 gm/dL (13.0-17.5) 06/17/16 05:37 Hct 43.6 % (39.0-53.0) 06/17/16 05:37 MCV 86.9 fL (80.0-100.0) 06/17/16 05:37 MCH 27.3 pg (25.0-35.0) 06/17/16 05:37 MCHC 31.4 g/dL (31.0-37.0) 06/17/16 05:37 RDW 14.2 % (11.5-15.5) 06/17/16 05:37 Plt Count 376 k/uL (150-450) 06/17/16 05:37 Neutrophils % 79 % 06/17/16 05:37 Lymphocytes % 6 % 06/17/16 05:37 Monocytes % 11 % 06/17/16 05:37 Eosinophils % 1 % 06/17/16 05:37 Basophils % 0 % 06/17/16 05:37 Neutrophils # 8.3 k/uL (1.3-7.7) H 06/17/16 05:37 Lymphocytes # 0.6 k/uL (1.0-4.8) L 06/17/16 05:37 Monocytes # 1.2 k/uL (0-1.0) H 06/17/16 05:37 Eosinophils # 0.2 k/uL (0-0.7) 06/17/16 05:37 Basophils # 0.0 k/uL (0-0.2) 06/17/16 05:37 PT 12.6 sec (9.0-12.0) H 06/13/16 05:35 INR 1.3 (<1.1) 06/13/16 05:35 Sodium 140 mmol/L (137-145) 06/17/16 05:37 Potassium 3.4 mmol/L (3.5-5.1) L 06/17/16 05:37 Chloride 108 mmol/L (98-107) H 06/17/16 05:37 Carbon Dioxide 26 mmol/L (22-30) 06/17/16 05:37 Anion Gap 6 mmol/L 06/17/16 05:37 BUN 19 mg/dL (9-20) 06/17/16 05:37 Creatinine 0.74 mg/dL (0.66-1.25) 06/17/16 05:37 Est GFR (MDRD) Af Amer >60 (>60 ml/min/1.73 sqM) 06/17/16 05:37 Est GFR (MDRD) Non-Af >60 (>60 ml/min/1.73 sqM) 06/17/16 05:37 Glucose 101 mg/dL (74-99) H 06/17/16 05:37 POC Glucose (mg/dL) 119 mg/dL (75-99) H 06/01/16 21:15 POC Glu [employer] Juanis Nolan 06/01/16 21:15 Calcium 8.5 mg/dL (8.4-10.2) 06/17/16 05:37 Phosphorus 2.9 mg/dL (2.5-4.5) 06/14/16 06:06 Magnesium 2.1 mg/dL (1.6-2.3) 06/15/16 05:18 Total Bilirubin 0.5 mg/dL (0.2-1.3) 06/17/16 05:37 AST 20 U/L (17-59) 06/17/16 05:37 ALT 20 U/L (21-72) L 06/17/16 05:37 Alkaline Phosphatase 73 U/L (38-126) 06/17/16 05:37 Total Protein 4.7 g/dL (6.3-8.2) L 06/17/16 05:37 Albumin 2.1 g/dL (3.5-5.0) L 06/17/16 05:37 Prealbumin 5 mg/dL (18-36) L 06/13/16 05:35 Urine Color Yellow 06/13/16 03:00 Urine Appearance Clear (Clear) 06/13/16 03:00 Urine pH 5.5 (5.0-8.0) 06/13/16 03:00 Ur Specific [place] 1.016 (1.001-1.035) 06/13/16 03:00 Urine Protein Negative (Negative) 06/13/16 03:00 Urine Glucose (UA) Negative (Negative) 06/13/16 03:00 Urine Ketones Trace (Negative) H 06/13/16 03:00 Urine Blood Negative (Negative) 06/13/16 03:00 Urine Nitrite Negative (Negative) 06/13/16 03:00 Urine Bilirubin Negative (Negative) 06/13/16 03:00 Urine Urobilinogen 6.0 mg/dL (<2.0) 06/13/16 03:00 Ur Leukocyte Esterase Negative (Negative) 06/13/16 03:00 Blood Type O Positive 05/23/16 09:34 Blood Type Recheck No 05/23/16 09:34 Antibody Screen NEGATIVE 05/23/16 09:34 Spec Expiration Date 05/29/16 2334 05/23/16 09:34 Microbiology 06/13/16 03:00 Urine,Clean Catch Urine Culture - Final Assessment and Plan (1) Non-small cell carcinoma of right lung Narrative/Plan: Patient relates he is feeling slightly better. He is attempting to eat. He is going slow so he doesn't have a difficulty with nausea and emesis. Daily yogurt for me. He has evidence of the squamous cell carcinoma the lung with the recent extensive surgical intervention was some ongoing air leak. The leukocytosis appears to be reactive. The patient does not appear to be acutely infected at this point in time. he was not eating. His guardians and agreed that PEG tube placed. Attempt for some feeding and then some further therapy if possible. He was able to recover he might be able to have some further interventions for his cancer otherwise may be a candidate for hospice. Airleak continues hopefully once he has some improvement nutrition this will also improve. Status: Acute (2) Leukocytosis Status: Acute
--- NOTE | 2016-06-17 19:40 | P.PN ---
Subjective Principal diagnosis: History of lung cancer The patient is a 71-year-old gentleman who is status post placement of PEG tube. No reports of abdominal pain. He is tolerating tube feeds. Objective - Vital Signs Vital signs: Vital Signs Temp 97.4 F L 06/16/16 12:00 Pulse 80 06/16/16 19:09 Resp 16 06/16/16 12:24 BP 154/74 06/16/16 12:00 Pulse Ox 96 06/16/16 12:00 Intake & Output 06/16/16 06/16/16 06/17/16 06:59 18:59 06:59 Intake Total 675 20 900 Output Total 213 98 Balance 462 -78 900 Weight 57.8 kg Intake: IV 675 900 Sodium Chloride 0.9% 1, 675 900 000 ml @ 75 mls/hr IV . [id number] [facility] Rx#:[id number] Oral 0 Tube Feeding 20 Output: Chest Tube Drainage 213 96 Chest Tube Right 213 96 Stool 2 Other: Voiding Method Urinal Urinal - Exam GENERAL: Well developed and in no acute distress. Pleasant. HEENT: No sclera icterus. Extraocular movements grossly intact. Moist buccal mucosa. Head is atraumatic, normocephalic. Hears conversational speech. No nasal drainage. NECK: Supple without lymphadenopathy. No JV distention. CHEST: Non-labored respirations. Right chest tube present. CARDIOVASCULAR: Regular rate and rhythm. Palpable 2+ radial pulses. ABDOMEN: Soft, nontender. Nondistended. PEG tube clean dry and intact. No signs of infection. Tube is patent and functioning. MUSCULOSKELETAL: No clubbing, cyanosis or edema. NEUROLOGIC: Cranial nerves II-12 grossly intact. PSYCH: Appropriate affect. Alert and oriented to person, place and time. - Labs CBC & Chem 7: 06/17/16 05:37 06/17/16 05:37 Labs: Abnormal Lab Results - Last 24 Hours (Table) 06/16/16 06/16/16 Range/Units 05:21 05:21 WBC 13.3 H (3.8-10.6) k/uL Neutrophils # 12.0 H (1.3-7.7) k/uL Lymphocytes # 0.5 L (1.0-4.8) k/uL Chloride 108 H (98-107) mmol/L Carbon Dioxide 21 L (22-30) mmol/L BUN 23 H (9-20) mg/dL Total Protein 4.5 L (6.3-8.2) g/dL Albumin 2.1 L (3.5-5.0) g/dL Assessment and Plan (1) Inadequate dietary intake of protein Status: Acute (2) Hypoalbuminemia due to protein-calorie malnutrition Status: Acute (3) Squamous cell carcinoma of lung Status: Acute (4) Malignant cachexia Status: Acute (5) Anorexia Status: Acute Plan: 1. Continue with tube feeds. 2. Management of tube feeds per dietitian. 3. Gastrointestinal prophylaxis recommended.
--- NOTE | 2016-06-17 19:41 | P.PN ---
Subjective Principal diagnosis: History of lung cancer The patient is a 71-year-old gentleman who is status post placement of PEG tube. He is resting comfortably in bed. No reports of intolerance to tube feeds. Objective - Vital Signs Vital signs: Vital Signs Temp 98.1 F 06/17/16 15:27 Pulse 88 06/17/16 17:15 Resp 16 06/17/16 17:06 BP 142/83 06/17/16 15:27 Pulse Ox 96 06/17/16 15:27 Intake & Output 06/17/16 06/17/16 06/18/16 06:59 18:59 06:59 Intake Total 1060 410 Output Total 160 60 Balance 900 350 Weight 60.5 kg 60.5 kg Intake: IV 900 Sodium Chloride 0.9% 1, 900 000 ml @ 75 mls/hr IV . [id number] [facility] Rx#:[id number] Oral 150 Tube Feeding 160 260 Output: Chest Tube Drainage 160 60 Chest Tube Right 160 60 Other: Voiding Method Urinal Urinal Diaper # Voids 3 # Bowel Movements 1 - Exam GENERAL: Well developed and in no acute distress. Pleasant. HEENT: No sclera icterus. Extraocular movements grossly intact. Moist buccal mucosa. Head is atraumatic, normocephalic. Hears conversational speech. No nasal drainage. NECK: Supple without lymphadenopathy. No JV distention. CHEST: Non-labored respirations. Right chest tube present. CARDIOVASCULAR: Regular rate and rhythm. Palpable 2+ radial pulses. ABDOMEN: Soft, nontender. Nondistended. No signs of infection. Tube is patent and functioning. MUSCULOSKELETAL: No clubbing, cyanosis or edema. NEUROLOGIC: Cranial nerves II-XII grossly intact. PSYCH: Appropriate affect. Alert and oriented to person, place and time. - Labs CBC & Chem 7: 06/17/16 05:37 06/17/16 05:37 Labs: Abnormal Lab Results - Last 24 Hours (Table) 06/17/16 06/17/16 Range/Units 05:37 05:37 Neutrophils # 8.3 H (1.3-7.7) k/uL Lymphocytes # 0.6 L (1.0-4.8) k/uL Monocytes # 1.2 H (0-1.0) k/uL Potassium 3.4 L (3.5-5.1) mmol/L Chloride 108 H (98-107) mmol/L Glucose 101 H (74-99) mg/dL ALT 20 L (21-72) U/L Total Protein 4.7 L (6.3-8.2) g/dL Albumin 2.1 L (3.5-5.0) g/dL Assessment and Plan (1) Inadequate dietary intake of protein Status: Acute (2) Hypoalbuminemia due to protein-calorie malnutrition Status: Acute (3) Squamous cell carcinoma of lung Status: Acute (4) Malignant cachexia Status: Acute (5) Anorexia Status: Acute Plan: 1. No further issues noted of gastrostomy tube feeding. 2. Management of tube feed goals per dietitian. 3. We'll follow as needed.
[2016-06-18] MEDS: HYDROcodone/APAP 5-325MG 1 EACH TAB PO PRN ×4 (03:19→20:53)
[2016-06-18] MEDS: PANTOPRAZOLE 40 MG TABLET PO SCH (06:29)
[2016-06-18 07:34] LABS: Basophils % (A) 0 %; CH 28.7; CHCM 33.9; Eosinophils # (A) 0.3 k/uL (0-0.7); Eosinophils % (A) 3 %; HCT 42.7 % (39.0-53.0); HGB 14.2 gm/dL (13.0-17.5); Luc # (Auto) 0.23; Luc % (Auto) 2; Lymphocytes # (A) 0.8 k/uL (1.0-4.8); Lymphocytes % (A) 8 %; MCH 28.4 pg (25.0-35.0); MCHC 33.3 g/dL (31.0-37.0); MCV 85.3 fL (80.0-100.0); Mean Platelet Volume 6.8; Monocytes # (A) 0.6 k/uL (0-1.0); Monocytes % (A) 6 %; Neutrophils # (A) 8.3 k/uL (1.3-7.7); Neutrophils % (A) 81 %; RBC 5.01 m/uL (4.30-5.90); WBC 10.2 k/uL (3.8-10.6); WBC (Perox) 9.82
[2016-06-18] MEDS: IPRATROPIUM-ALBUTEROL 3 ML NEB IH SCH ×4 (07:41→19:54)
[2016-06-18 07:57] LABS: ALT 24 U/L (21-72); AST 20 U/L (17-59); Alkaline Phosphatase 72 U/L (38-126); Anion Gap 6 mmol/L; Blood Urea Nitrogen 20 mg/dL (9-20); Calcium 8.3 mg/dL (8.4-10.2); Carbon Dioxide 26 mmol/L (22-30); Chloride 109 mmol/L (98-107); Glucose 124 mg/dL (74-99); Non-African American GFR(MDRD) >60 (>60 ml/min/1.73 sqM); Potassium 3.7 mmol/L (3.5-5.1); Sodium 141 mmol/L (137-145); Total Bilirubin 0.3 mg/dL (0.2-1.3); Total Protein 4.6 g/dL (6.3-8.2)
--- NOTE | 2016-06-18 08:12 | XR ---
EXAMINATION TYPE: XR chest 1V portable DATE OF EXAM: 06/18/2016 7:41 AM HISTORY: Shortness of breath. COMPARISON: 06/17/2016 TECHNIQUE: Single view of the chest is submitted. FINDINGS: Right-sided chest tube is unchanged in position. Right basilar pneumothorax persists. Small left apic al component noted. Cutaneous air is seen along the right chest wall. Demonstrated are scattered senescent parenchymal change. Right-sided volume loss with scattered airspace infiltrates and small pleural effusion. Hyperinflatio n left lung. The heart is stable. Hilar and mediastinal structures are within normal limits. Degenerative changes are seen of the dorsal spine. IMPRESSION: 1. Stable chest.
[2016-06-18] MEDS: NICOTINE 14MG/24HR PATCH TRANSDERM SCH (09:14)
[2016-06-18] MEDS: HEPARIN SODIUM,PORCINE 5,000 UNIT/ML 1 ML VIAL SQ SCH ×2 (09:14→20:42)
[2016-06-18] MEDS: METOPROLOL TARTRATE 50 MG TAB PO SCH ×3 (09:15→20:42)
[2016-06-18] MEDS: BISACODYL 10 MG SUPP RECTAL SCH (09:15)
[2016-06-18] MEDS: DILTIAZEM CD 240 MG CAP.ER.24H PO SCH (09:15)
[2016-06-18] MEDS: ASPIRIN 81 MG CHEW PO SCH (09:15)
[2016-06-18] MEDS: ATORVASTATIN 40 MG TAB PO SCH (09:15)
[2016-06-18] MEDS: SERTRALINE 50 MG TAB PO SCH (09:15)
[2016-06-18] MEDS: MEGESTROL 400 MG/10 ML CUP PO SCH (09:15)
--- NOTE | 2016-06-18 09:19 | P.PN ---
Subjective Principal diagnosis: Non-small cell carcinoma right lower lobe of the lung POD #21 right thoracotomy, right lower and middle lobectomy, mediastinal lymph node dissection, cryoablation of intercostal nerves IV through VIII POD #3 placement of PEG tube Pt currently resting in bed in no apparent distress. Denies pain. No new questions or concerns. More alert today. Eating small bites of food. Objective - Vital Signs Vital signs: Vital Signs Temp 97.3 F L 06/18/16 03:40 Pulse 72 06/18/16 07:54 Resp 16 06/18/16 03:40 BP 143/72 06/18/16 03:40 Pulse Ox 96 06/18/16 03:40 Intake & Output 06/17/16 06/18/16 06/18/16 18:59 06:59 18:59 Intake Total 410 600 Output Total 60 80 Balance 350 520 Weight 60.5 kg 57.4 kg Intake: IV 50 0.9 @ 10mls/hr 50 Oral 150 Tube Feeding 260 550 Output: Chest Tube Drainage 60 80 Chest Tube Right 60 80 Other: Voiding Method Urinal Diaper Diaper # Voids 3 1 # Bowel Movements 1 1 - Constitutional General appearance: Present: cooperative, no acute distress, thin - Respiratory Details: Lungs sounds diminished bilaterally. Respirations even, nonlabored. Currently on room air with oxygen saturation 96%. Able to achieve 750 mL on his incentive spirometry. Right pleural chest tube to -20 cm wall suction. 50 mL serous drainage overnight, 150 mL the last 24 hours. No air leak present. - Cardiovascular Details: S1, S2 present. Regular rate and rhythm, normal sinus rhythm on telemetry. - Gastrointestinal Gastrointestinal Comment(s): Abdomen soft, nontender, nondistended. Active bowel sounds 4 quadrants. Currently receiving tube feedings at 60 mL per hour which is goal through PEG tube. Positive bowel movement this morning. - Genitourinary Genitourinary Comment(s): Continues to void clear, yellow urine. - Musculoskeletal Musculoskeletal: Present: generalized weakness, strength equal bilaterally - Psychiatric Psychiatric: Present: A&O x's 3, appropriate affect, intact judgment & insight - Allied health notes Allied health notes reviewed: nursing - Labs CBC & Chem 7: 06/18/16 07:20 06/18/16 07:20 Labs: Abnormal Lab Results - Last 24 Hours (Table) 06/18/16 06/18/16 Range/Units 07:20 07:20 Neutrophils # 8.3 H (1.3-7.7) k/uL Lymphocytes # 0.8 L (1.0-4.8) k/uL Chloride 109 H (98-107) mmol/L Glucose 124 H (74-99) mg/dL Calcium 8.3 L (8.4-10.2) mg/dL Total Protein 4.6 L (6.3-8.2) g/dL Albumin 2.1 L (3.5-5.0) g/dL - Imaging and Cardiology Chest x-ray: report reviewed, image reviewed Assessment and Plan (1) Non-small cell carcinoma of right lung Status: Acute Plan: 1. Continue tube feeding per dietitian recommendations. 2. Increase activity in his room, physical therapy following. 3. Encourage incentive spirometry use. 4. Chest tube placed to waterseal this morning. Will repeat x-ray. 5. Pain management with ordered medication regimen. 6. Comorbid medical problems to be managed by internal medicine service. 7. Discharge planning in progress, patient will need to go to a facility upon discharge 8. Will discuss possibility of sending patient to general medical floor today with Dr. Negron. Time with Patient: Greater than 30
--- NOTE | 2016-06-18 16:28 | PN ---
DATE OF SERVICE: 06/17/2016 INTERVAL HISTORY: Attending Note: This patient was seen and examined by me yesterday on 06/17/2016. I reviewed the note of my nurse practitioner, Ms. Rivera, and discussed any changes below. The patient remains to have a right chest tube placed, not really eating much. Denies being depressed, but I think there may be a contribution of the same. Patient is already on Zoloft. On examination, lungs decreased breath sounds, some basal crackles. Mood and affect rather low. INVESTIGATIONS: White count 10.4. Potassium 3.6. ASSESSMENT: 1. Right pneumothorax. Chest tube in place. 2. Possible severe depression. 3. Moderate protein calorie malnutrition. PLAN: I did inform the cardiothoracic team. Will go ahead and consult psychiatry. Patient again encouraged to increase his oral intake.
--- NOTE | 2016-06-18 18:09 | PN ---
71-year-old black male with history of squamous cell carcinoma. He is status post right middle and right lower lobectomy. He has been here since May 27. He is postoperative day #22. His hospitalization and postoperative course has been hampered by poor nutrition and protein calorie malnutrition. In addition, he has a persistent air leak which is just now seemingly improved. A PEG tube was placed for improved nutrition. He is doing better. Sleeping when I went into the room. In no distress. No air leak today. Dr. Negron was the one who did the surgery. Current vital signs include temperature 97.3, heart rate 72, respirations 16, blood pressure 143/72, room air saturation 96%. Appears in no acute distress. HEENT examination is grossly unremarkable. Neck is supple. Full range of motion. No adenopathy. Cardiovascular examination reveals a regular rhythm and rate. S1/S2 normal. Heart sounds are distant. Lungs reveal diminished breath sounds on the right side. There is some subcutaneous emphysema still. It is noted in the right neck area, right chest area. Has not changed. Lungs are otherwise stable. ABDOMEN: Soft. Bowel sounds are heard. EXTREMITIES: Intact. No cyanosis, clubbing or edema. Skin without rash. NEUROLOGICAL: Nonfocal. No air leak is noted in the waterseal chamber today. That is the same as it was yesterday. Labs are reviewed. White count 10.2, hemoglobin 14.2, hematocrit 42.7, platelet count 374,000. Sodium and potassium normal. Chloride is 109, CO2 of 26, BUN and creatinine were 20 and 0.7. Albumin which are measuring every day is still only 2.1. Chest x-ray is reviewed. Medications are reviewed. ASSESSMENT: 1. Squamous cell carcinoma of the lung, status post right middle and right lower lobectomy postoperative day #22. 2. 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 3. Significant but stable subcutaneous emphysema. 4. Chronic and ongoing tobacco dependence. 5. Hypertension. 6. Gastroesophageal reflux disease. 7. Protein calorie malnutrition. PLAN: Hopefully the patient will continue to show improvement. Medications are reviewed. No additional recommendations are made. Will continue to follow along with thoracic surgery.
--- NOTE | 2016-06-18 19:04 | PN ---
DATE OF SERVICE: 06/18/2016 PRESENTING COMPLAINT: Right partial lobectomy. INTERVAL HISTORY: This 71-year-old male is status post right middle and lower lobectomy. Right chest wall chest tube remains in place. No air leak noted this morning and is currently on water seal. Patient this morning is somewhat sleepy, had to be awoken for exam. Tube feeding infusing with no residual. Patient continues to not have a good appetite. Patient is able to answer simple straightforward questions. Review of systems for constitutional, cardiovascular, gastrointestinal, pulmonary, with relevant findings as above. CURRENT MEDICATIONS: [place], DuoNeb and diltiazem. PHYSICAL EXAMINATION: VITAL SIGNS: Temperature 97.3, pulse 70, respiratory rate 16, blood pressure 143/72, oxygen saturation 96% on room air GENERAL APPEARANCE: Patient is lying in bed looking comfortable, was sleeping. Patient has a very flat affect. EYES: Pupils equal. Conjunctivae normal. NECK: JVD not raised. Mass not palpable. LUNGS: Right lung sounds diminished with coarse breath sounds, left diminished at the base. RESPIRATORY: Effort normal, unlabored. CARDIOVASCULAR: First and second sounds normal. No edema noted. ABDOMEN: Soft, tender around the PEG tube site; better today, however. Liver and spleen not palpable. PSYCHIATRIC: Alert and oriented x3. Able to answer simple straightforward questions. INVESTIGATIONS: White blood cell count 10.2 hemoglobin 14.2, platelet count 374, sodium 141, potassium 3.7, BUN 20, creatinine 0.70, glucose 124, albumin 2.1. Chest x-ray, stable chest x-ray. ASSESSMENT: 1. Right pneumothorax. Chest tube remains in place. 2. PEG tube placed for malnutrition. 3. Emphysema in a current smoker. 4. Chronic nicotine dependence. 5. Essential hypertension. 6. Gastroesophageal reflux disease. 7. Chronic alcohol dependence, status post delirium tremens. 8. Subcutaneous emphysema on the right upper chest wall. 9. Medical debility. Patient is rather weak and tired. 10. Moderate protein calorie malnutrition from decreased oral intake. 11. Right middle and lower lobectomy of the lung along with pathology showing squamous cell carcinoma. PLAN: Continue current medication and treatment plan. Cardiothoracic surgery has put chest tube to water seal and second x-ray will be taken later today in the hopes that maybe perhaps the chest tube come out. Empiric antibiotics are not recommended per infectious disease at this time. Prognosis is guarded. Patient will likely require inpatient rehabilitation. Patient continues to be non-participatory in his care. Psychiatric consult has been placed to determine if patient has some degree of depression regarding his illness process. Patient was seen and examined by nurse practitioner, Zainab Rivera, and all elements of the case discussed with attending, Dr. Albert.
[2016-06-19 06:46] LABS: Basophils # (A) 0.1 k/uL (0-0.2); Basophils % (A) 0 %; CH 28.5; CHCM 33.6; Eosinophils # (A) 0.4 k/uL (0-0.7); Eosinophils % (A) 4 %; HCT 47.3 % (39.0-53.0); HGB 15.6 gm/dL (13.0-17.5); Luc # (Auto) 0.18; Luc % (Auto) 2; Lymphocytes # (A) 0.9 k/uL (1.0-4.8); Lymphocytes % (A) 9 %; MCH 28.1 pg (25.0-35.0); MCV 85.3 fL (80.0-100.0); Mean Platelet Volume 7.4; Monocytes # (A) 0.6 k/uL (0-1.0); Monocytes % (A) 5 %; Neutrophils # (A) 8.1 k/uL (1.3-7.7); Neutrophils % (A) 79 %; RBC 5.55 m/uL (4.30-5.90); RDW 13.9 % (11.5-15.5); WBC 10.2 k/uL (3.8-10.6); WBC (Perox) 9.83
[2016-06-19] MEDS ORDERED: BISACODYL 10 MG SUPP RECTAL PRN (07:02)
[2016-06-19] MEDS: HYDROcodone/APAP 5-325MG 1 EACH TAB PO PRN ×4 (07:05→19:42)
[2016-06-19] MEDS: PANTOPRAZOLE 40 MG TABLET PO SCH (07:06)
--- NOTE | 2016-06-19 07:09 | XR ---
EXAMINATION TYPE: XR chest 1V portable DATE OF EXAM: 06/19/2016 7:05 AM COMPARISON: 06/18/2016 HISTORY: Right-sided pneumothorax TECHNIQUE: Single frontal view of the chest is obtained. FINDINGS: Subcutaneous emphysema noted. Percent right pneumothorax. Chest tube noted. Left lung clear. Correlate for COPD. Heart size stable. IMPRESSION: 1. Approximately 5-10% right apical pneumothorax is stable. 2 diffuse subcutaneous emphysema.
--- NOTE | 2016-06-19 08:32 | P.PN ---
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 Currently eating breakfast. Objective - Vital Signs Vital signs: Vital Signs Temp 98.1 F 06/19/16 04:00 Pulse 86 06/19/16 04:00 Resp 17 06/19/16 04:00 BP 134/79 06/19/16 04:00 Pulse Ox 96 06/19/16 04:00 Intake & Output 06/18/16 06/19/16 06/19/16 18:59 06:59 18:59 Intake Total 700 960 Output Total 1 30 Balance 699 930 Weight 58 kg Intake: Oral 0 0 Tube Feeding 700 960 Output: Chest Tube Drainage 30 Chest Tube Right 30 Stool 1 Other: Voiding Method Diaper Diaper - Constitutional General appearance: Present: cooperative, no acute distress, thin - Respiratory Details: Lungs sounds diminished bilaterally. Respirations even, nonlabored. Currently on room air with oxygen saturation 96%. Right pleural chest tube to waterseal, drained 30 mL serous fluid overnight, no air leak present. - Cardiovascular Details: S1, S2 present. Regular rate and rhythm, normal sinus rhythm on telemetry. - Gastrointestinal Gastrointestinal Comment(s): Abdomen soft, nontender, nondistended. Active bowel sounds 4 quadrants. Currently tube fed at a rate of 60 mL/h through PEG tube. Supplementing with small bites of food. - Genitourinary Genitourinary Comment(s): Continues to void clear, yellow urine. - Musculoskeletal Musculoskeletal: Present: generalized weakness, strength equal bilaterally - Psychiatric Psychiatric: Present: A&O x's 3, appropriate affect, intact judgment & insight - Allied health notes Allied health notes reviewed: nursing - Labs CBC & Chem 7: 06/19/16 06:16 06/18/16 07:20 Labs: Abnormal Lab Results - Last 24 Hours (Table) 06/19/16 Range/Units 06:16 Neutrophils # 8.1 H (1.3-7.7) k/uL Lymphocytes # 0.9 L (1.0-4.8) k/uL - Imaging and Cardiology Chest x-ray: report reviewed, image reviewed Assessment and Plan (1) Non-small cell carcinoma of right lung Status: Acute Plan: 1. Continue tube feeding per dietitian recommendations. Encourage oral intake. 2. Increase activity, physical therapy following reconsulted to increase activity, evaluate for rehabilitation. 3. Encourage incentive spirometry use. 4. Chest tube clamped this morning. Will discontinue today. 5. Pain management with ordered medication regimen. 6. Comorbid medical problems to be managed by internal medicine service. 7. Discharge planning in progress, patient will need to go to a facility upon discharge Time with Patient: Greater than 30
[2016-06-19] MEDS: METOPROLOL TARTRATE 50 MG TAB PO SCH ×3 (08:47→22:39)
[2016-06-19] MEDS: ASPIRIN 81 MG CHEW PO SCH (08:47)
[2016-06-19] MEDS: MEGESTROL 400 MG/10 ML CUP PO SCH (08:47)
[2016-06-19] MEDS: HEPARIN SODIUM,PORCINE 5,000 UNIT/ML 1 ML VIAL SQ SCH ×2 (08:47→22:39)
[2016-06-19] MEDS: DILTIAZEM CD 240 MG CAP.ER.24H PO SCH (08:47)
[2016-06-19] MEDS: ATORVASTATIN 40 MG TAB PO SCH (08:48)
[2016-06-19] MEDS: SERTRALINE 50 MG TAB PO SCH (08:48)
[2016-06-19] MEDS: NICOTINE 14MG/24HR PATCH TRANSDERM SCH (08:48)
[2016-06-19] MEDS: IPRATROPIUM-ALBUTEROL 3 ML NEB IH SCH ×4 (09:32→19:28)
[2016-06-19 09:51] LABS: Anion Gap 11 mmol/L; Blood Urea Nitrogen 20 mg/dL (9-20); Calcium 9.4 mg/dL (8.4-10.2); Carbon Dioxide 24 mmol/L (22-30); Chloride 110 mmol/L (98-107); Glucose 125 mg/dL (74-99); Non-African American GFR(MDRD) >60 (>60 ml/min/1.73 sqM); Potassium 4.2 mmol/L (3.5-5.1); Sodium 145 mmol/L (137-145)
--- NOTE | 2016-06-19 12:36 | XR ---
EXAMINATION TYPE: XR chest 2V DATE OF EXAM: 06/19/2016 12:30 PM COMPARISON: Today HISTORY: Chest tube removal TECHNIQUE: Frontal and lateral views of the chest are obtained. FINDINGS: There is patchy consolidation in the right lower lobe. There is some blunting of right cos tophrenic angle. Left lung is clear. There is subcutaneous emphysema over the right chest wall. There are chest leads. There is been removal of the right chest tube compared to the exam this morning. Th ere is a 5% right apical pneumothorax. IMPRESSION: Tiny right pneumothorax without change compared to the exam this morning.
--- NOTE | 2016-06-19 12:36 | PN ---
DATE OF SERVICE: 06/18/2016 ATTENDING NOTE: This patient was seen and examined by me. Patient has a note by Nurse Practitioner Ms. Rivera; was reviewed, discussed the case with her. Right chest tube remains in place. Getting PEG tube feeding. Looks a bit more perky. Tolerating small amounts. On exam, patient has decreased breath sounds on the right side. CARDIOVASCULAR: First and second sounds normal. ASSESSMENT: 1. Right pneumothorax. 2. Percutaneous endoscopic gastrostomy feeding for malnutrition. Care was with the patient and family at the bedside. Continue supportive care.
--- NOTE | 2016-06-19 23:07 | PN ---
DATE OF SERVICE: 06/19/2016 This is a 71-year-old black male who has a history of squamous cell carcinoma. He is status post right middle and right lower lobectomy. He has been here since May 27. He is postoperative day #23. Fortunately today, his chest tube finally came out. His hospitalization and postoperative course has been hampered by poor nutrition with protein calorie malnutrition as well as a persistent air leak and subcutaneous emphysema. He is doing much better. Had a PEG placed a couple days back. CURRENT VITAL SIGNS: Temperature 98.1, heart rate 84, respiratory rate 17, blood pressure 134/79, room air saturation 96%. Appears in no acute distress. HEENT examination is grossly unremarkable. Mucous membranes are moist. No oral lesions. Neck is supple. Full range of motion. No adenopathy or thyromegaly. Cardiovascular examination reveals regular rhythm and rate. Lungs reveal diminished breath sounds. There is some persistent subcutaneous emphysema on the right side. Breath sounds are diminished on the right side. ABDOMEN: Soft. Bowel sounds are heard. No masses or tenderness. PEG tube noted. EXTREMITIES: Intact. No cyanosis, clubbing or edema. Skin is without rash. Neurologic examination is nonfocal. Labs are reviewed. White count 10.2, hemoglobin and hematocrit and platelet count all normal. Sodium and potassium normal. Chloride is 110, CO2 of 24, BUN and creatinine 20 and 0.65. The rest of the labs look okay. X-rays reviewed. ASSESSMENT: 1. Squamous cell carcinoma of the lung, status post right middle and right lower lobectomy, postoperative day #23. 2. 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 3. Significant but stable/improved subcutaneous emphysema. 4. Chronic and ongoing tobacco dependence. 5. Hypertension. 6. Gastroesophageal reflux disease. 7. Protein calorie malnutrition. 8. Chronic obstructive pulmonary disease. PLAN: The patient seemed to be doing relatively well. He is tolerating tube feeds. The patient's chest tube was removed today. Post chest tube removal chest x-ray is stable. No additional recommendations are made. Will continue to follow. Prognosis is guarded.
[2016-06-20] MEDS: HYDROcodone/APAP 5-325MG 1 EACH TAB PO PRN ×5 (00:02→23:01)
--- NOTE | 2016-06-20 07:23 | PN ---
DATE OF SERVICE: 06/19/2016 PRESENTING COMPLAINT: Right partial lobectomy. INTERVAL HISTORY: This is a 71-year-old male status post right middle and lower lobectomy. Right chest wall chest tube was removed this morning. Patient is awake and alert, able to answer questions and even making jokes. Tube feeding continues infusing with no residual. Patient continues to complain about not having a good appetite. Patient is able to answer simple straightforward questions. Review of systems for constitutional, cardiovascular, gastrointestinal, pulmonary with relevant findings above. CURRENT MEDICATIONS: Williamson, DuoNeb, and diltiazem. Tube feeding infusing with a goal rate of 50 mL an hour, currently at. PHYSICAL EXAM: VITAL SIGNS: Temperature 98.1, pulse 86, respiratory rate 17, blood pressure 134/79, oxygen saturation 96% on room air. GENERAL APPEARANCE: Patient is lying in bed, looking comfortable, making jokes, more perky today. EYES: Pupils equal. Conjunctivae normal. NECK: JVD not raised. Mass not palpable. LUNGS: Coarse breath sounds bilaterally in all lung will. RESPIRATORY: Effort normal. Unlabored. CARDIOVASCULAR: First and second sounds normal. No edema noted. ABDOMEN: Soft and tender around the PEG tube site. Somewhat better today. Liver and spleen not palpable. PSYCHIATRIC: Alert and oriented x3, able to answer simple questions. INVESTIGATIONS: White blood cell count 10.2, hemoglobin 15.6, platelet count 343. Sodium 145, potassium 4.2, BUN 20, creatinine 0.65. ASSESSMENT: 1. Right pneumothorax. Chest tube was removed this morning. 2. PEG tube placed for malnutrition. 3. Emphysema in a current smoker. 4. Chronic nicotine dependence. 5. Essential hypertension. 6. Gastroesophageal reflux disease. 7. Chronic alcohol dependence, status post delirium tremens. 8. Subcutaneous emphysema on the right upper chest wall. 9. Medical debility. Patient remains rather weak and tired. 10. Moderate protein calorie malnutrition from decreased oral intake. 11. Right middle and lower lobectomy of the lobe along with pathology showing squamous cell carcinoma. PLAN: Continue current medications and treatment plan. Cardiothoracic surgery has removed the chest tube this morning and will do a follow-up chest x-ray. Empiric antibiotics are not recommended per infectious disease at this time. Prognosis remains guarded. Patient will likely require inpatient rehab. Patient's mood and affect seem improved although Psychiatry was consulted and will follow along on the case. Patient was seen and examined by nurse practitioner, Zainab Rivera, and all elements of the case was discussed with attending, Dr. Albert.
[2016-06-20] MEDS: IPRATROPIUM-ALBUTEROL 3 ML NEB IH SCH ×4 (07:51→19:45)
[2016-06-20] MEDS: NICOTINE 14MG/24HR PATCH TRANSDERM SCH (08:19)
[2016-06-20] MEDS: MEGESTROL 400 MG/10 ML CUP PO SCH (08:19)
[2016-06-20] MEDS: HEPARIN SODIUM,PORCINE 5,000 UNIT/ML 1 ML VIAL SQ SCH ×2 (08:19→21:20)
[2016-06-20] MEDS: METOPROLOL TARTRATE 50 MG TAB PO SCH ×3 (08:19→21:20)
[2016-06-20] MEDS: ASPIRIN 81 MG CHEW PO SCH (08:19)
[2016-06-20] MEDS: SERTRALINE 50 MG TAB PO SCH (08:20)
[2016-06-20] MEDS: PANTOPRAZOLE 40 MG TABLET PO SCH (08:20)
[2016-06-20] MEDS: DILTIAZEM CD 240 MG CAP.ER.24H PO SCH (08:20)
[2016-06-20] MEDS: ATORVASTATIN 40 MG TAB PO SCH (08:20)
--- NOTE | 2016-06-20 08:47 | P.PN ---
Progress Note - Text I am currently on vacation. Have reviewed patient therapy notes. He varies between being unable to participate at all to dependent/total assist. Not appropriate for inpatient rehabilitatilion at this time. Currently requires 24 hour care of multilple persons. Should consider ECF placement.
--- NOTE | 2016-06-20 09:02 | P.CN ---
Psychiatric Consult - . Consult date: 06/20/16 Consult:: DATE OF SERVICE: [06/20/2016] IDENTIFYING DATA: This patient is a 71-year-old and Pakistani who was admitted for non small cell carcinoma of right lower lobe of lung. POD # 20 right thoracotomy, right lower and middle lobectomy. POD #2 PEG Consulted for lack of appetite and wanting to be left alone. HISTORY OF PRESENT ILLNESS: The patient patient reports that he has a lung problem, and he had surgery that he is healing. Patient has decreased appetite and today he has his breakfast tray in front of him, untouched. Patient denies feeling depressed and sad, down in the dumps, or blue. Patient denies being anxious and worried about the future. MENTAL STATUS EXAM: [A&OX 3, lying in bed. No auditory or visual hallucinations reported. Mood dysphoric, affect constricted. No suicidal ideation]. IMPRESSIONS: Frail cachectic AA male, with recent surgery, cancer, hx of etoh use, severe, with poor to no appetite. Continues to report no appetite. He was noted to be joking with provider. Depression could be cause of lack of appetite, however cancer likely to be impacting as well. No evidence of psychosis. No danger to self or others PLAN: No medication for increase of appetite. Zoloft is a good medication for depression and no reason to stop. However some evidence to support Remeron or mirtazapine for weight gain. This could be used at bedtime along with zoloft. Recommend trial of low dose mirtazapine 7.5mg QHS. No further psychiatric treatment indicated. Please re-consult if needed. Thank you for this consult. 06/20/16 08:55
--- NOTE | 2016-06-20 09:37 | XR ---
EXAMINATION TYPE: XR chest 2V DATE OF EXAM: 06/20/2016 7:36 AM COMPARISON: 06/19/2016 HISTORY: 71-year-old male history of right-sided lung cancer, pneumothorax TECHNIQUE: Frontal and lateral views FINDINGS: Slight rightward patient rotation. Heart is normal size. Continued volume loss within the right hemit horax with patchy right mid and lower lung opacity. A small right apical pneumothorax is slightly dec reased in size with the pleural edge measuring approximately 1.3 cm from the apical margin. Trace rig ht effusion remains. Subcutaneous emphysema throughout the right chest wall. Surgical clips at the [facility]. IMPRESSION: 1. Small right apical pneumothorax slightly decreased in the interval. 2. Postsurgical changes with volume loss in the right hemithorax. Continued small right pleural effus ion with a prominent atelectasis/consolidation in the mid to lower right lung.
--- NOTE | 2016-06-20 10:39 | P.PN ---
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 Right pleural chest tube removed yesterday. Patient transferred to medical surgical floor. Objective - Vital Signs Vital signs: Vital Signs Temp 98.1 F 06/19/16 22:09 Pulse 71 06/19/16 22:09 Resp 16 06/19/16 22:09 BP 139/68 06/19/16 22:09 Pulse Ox 98 06/19/16 22:09 Intake & Output 06/19/16 06/20/16 06/20/16 18:59 06:59 18:59 Intake Total 1200 480 Output Total 11 1 Balance 1189 479 Weight 58 kg Intake: Oral 240 Tube Feeding 960 480 Output: Chest Tube Drainage 10 Chest Tube Right 10 Stool 1 1 Other: Voiding Method Diaper Diaper # Voids 4 1 # Bowel Movements 1 - Constitutional General appearance: Present: cooperative, no acute distress - Respiratory Details: Sounds diminished bilaterally. Respirations even, nonlabored. Currently on room air with oxygen saturation 98%. Able to achieve 1000 mL on his incentive spirometry. - Cardiovascular Details: S1, S2 present. Regular rate and rhythm. - Gastrointestinal Gastrointestinal Comment(s): Abdomen soft, nontender, nondistended. Active bowel sounds 4 quadrants. Currently has tube feeding and 60 mL/h through PEG tube. Bowel movement this morning. - Genitourinary Genitourinary Comment(s): Continues to void clear yellow urine, incontinent at times. - Integumentary Integumentary Comment(s): Right chest tube site covered with dry intact dressing. - Musculoskeletal Musculoskeletal: Present: generalized weakness - Psychiatric Psychiatric: Present: A&O x's 3, appropriate affect, intact judgment & insight - Allied health notes Allied health notes reviewed: nursing - Labs CBC & Chem 7: 06/19/16 06:16 06/19/16 06:16 Labs: Abnormal Lab Results - Last 24 Hours (Table) 06/19/16 Range/Units 06:16 Chloride 110 H (98-107) mmol/L Creatinine 0.65 L (0.66-1.25) mg/dL Glucose 125 H (74-99) mg/dL - Imaging and Cardiology Chest x-ray: image reviewed Assessment and Plan (1) Non-small cell carcinoma of right lung Status: Acute Plan: 1. Continue tube feeding per dietitian recommendations. Encourage oral intake. 2. Increase activity, physical therapy following re-consulted to increase activity, evaluate for rehabilitation. 3. Encourage incentive spirometry use. 4. Pain management with ordered medication regimen. 5. Comorbid medical problems to be managed by internal medicine service. 6. Discharge planning in progress, patient will need to go to a facility upon discharge. Anticipate discharge when bed is available. Time with Patient: Greater than 30 <Rudi Gutierrez - Last Filed: 06/20/16 10:59> Objective - Vital Signs Vital signs: Vital Signs Temp 98.2 F 06/20/16 08:25 Pulse 78 06/20/16 08:25 Resp 16 06/20/16 08:25 BP 171/92 06/20/16 08:25 Pulse Ox 96 06/20/16 08:25 Intake & Output 06/19/16 06/20/16 06/20/16 18:59 06:59 18:59 Intake Total 1200 480 Output Total 11 1 Balance 1189 479 Weight 58 kg 58 kg Intake: Oral 240 Tube Feeding 960 480 Output: Chest Tube Drainage 10 Chest Tube Right 10 Stool 1 1 Other: Voiding Method Diaper Diaper Diaper # Voids 4 1 # Bowel Movements 1 - Labs CBC & Chem 7: 06/19/16 06:16 06/19/16 06:16 Assessment and Plan Plan: The patient was seen and examined. I agree with the above assessment and plan. His remaining chest tube was removed over the weekend. Chest x-ray this morning reveals a small right apical space which is unchanged. Otherwise he is on room air. Tolerating tube feeds at goal. I did encourage him to continue eating as much as possible. Physical therapy has been working with him. He will be discharged to subacute rehab once a bed is available.
--- NOTE | 2016-06-20 12:09 | PN ---
DATE OF SERVICE: 06/19/2016 ATTENDING NOTE Patient was seen and examined by me today. Also reviewed the note by nurse practitioner, Ms. Rivera, reviewed, discussed with her. Patient's right side chest tube was taken out. Patient is more perky, getting PEG tube feeding. On examination, lungs decreased breath sounds in the right side. CARDIOVASCULAR: First and second sounds normal. Patient is sitting up and talking much more today. ASSESSMENT: 1. PEG tube feeding for malnutrition. 2. Right pneumothorax, status post chest tube. PLAN: Patient overall doing much better. Continue with the current medication and treatment plan. Will follow.
--- NOTE | 2016-06-20 15:15 | P.DS ---
Providers Date of admission: 05/27/16 08:42 Attending physician: Deny Negron Consults: 05/27/16 13:22 Consult Physician Routine Consulting Provider: Christine De Consult Reason/Comments: post op Do you want consulting provider notified?: Yes 05/28/16 11:17 Consult Physician Routine Consulting Provider: Kwame Albert Consult Reason/Comments: medical management Do you want consulting provider notified?: Already Contacted 05/30/16 10:01 Consult Physician Routine Consulting Provider: Suraj Rivera Consult Reason/Comments: inpatient rehab eval Do you want consulting provider notified?: Yes 06/12/16 15:53 Consult Physician Routine Consulting Provider: Iván Spears Consult Reason/Comments: elevated wbc count Do you want consulting provider notified?: Yes 06/13/16 10:47 Consult Physician Routine Consulting Provider: Kalie Sweet Consult Reason/Comments: PEG tube placement Do you want consulting provider notified?: Yes 06/17/16 14:10 Consult Physician Routine Consulting Provider: Angie Amato Consult Reason/Comments: depression, won't eat and wants to be left alone Do you want consulting provider notified?: Yes Primary care physician: Enoch Weinberg - Discharge Diagnosis(es) (1) Non-small cell carcinoma of right lung Current Visit: Yes Status: Acute Hospital Course: FINAL DIAGNOSIS: 1.[Non-small cell carcinoma right lower lobe lung] 2.[Hypertension] 3.[Tobacco dependence] 4.[History of stroke] 5.[Frequent falls] 6.[EtOH abuse] 7.[Persistent pneumothorax] 8.[Hypoalbuminemia secondary to protein calorie malnutrition] PRINCIPAL PROCEDURE: [] 1.[Elective right thoracotomy, right lower and middle lobectomy, mediastinal lymph node dissection, cryoablation of intercostal nerves IV through VIII] 2.[Esophagogastroduodenoscopy with percutaneous endoscopic gastrostomy tube placement] HISTORY OF PRESENT ILLNESS: [This 71-year-old -Maltese gentleman had presented to the hospital from residential with hemoptysis and was worked up by pulmonology. He had a chest x-ray in February demonstrating a right lower lobe mass. Upon release from residential, he had a CAT scan, PET scan, and navigational bronchoscopy which were positive for squamous cell carcinoma. He denied any shortness of breath or chest pain. He refrained from smoking while incarcerated but resumed smoking once released. He was referred to Dr. Negron by Dr. De for lung biopsy. Extensive discussion was had with the patient, all risks and benefits were explained and the patient agreed to proceed with surgery.] HOSPITAL COURSE:[The patient was brought to the hospital on 05/27/2016, taken to the preoperative area, prepared in usual fashion, and subsequently taken to the operating room where Dr. Negron performed an elective right thoracotomy, right lower and middle lobectomy, mediastinal lymph node dissection, and cryoablation of intercostal nerves IV through VIII. Upon completion of surgery he was extubated, transferred to the post anesthesia care unit where he was recovered, monitored hemodynamically, and was eventually admitted to [address] [place] [address] for further monitoring and rehabilitation. His post operative course was complicated by persistent pneumothorax and air leak, necessitating continuation of right pleural chest tube, and protein calorie malnutrition from lack of appetite despite appetite stimulant medication requiring placement of percutaneous endoscopic gastrostomy tube placement. His oxygen was titrated down, his chest tube was eventually discontinued on POD # 22, his pain was controlled with oral medication, physical therapy continued to work with him despite lack of motivation, and he was ready to be discharged to rehab for further mobility and strength training on postoperative day 23. He received written and verbal instructions regarding medications, activity restrictions, signs and symptoms requiring physician notification, and follow-up appointments. ] COMPLICATIONS: [The patient experienced post operative persistent pneumothorax and protein calorie malnutrition which were treated appropriately.] CONSULTATIONS: 1.[Dr. De for pulmonology] 2.[Dr. Albert for medical management] 3.[Dr. Spears for leukocytosis] 4.[Dr. Sweet for PEG tube placement] 5.[Dr. Amato for psychiatry] 6.[Dr. Rivera for rehabilitation] DISCHARGE INSTRUCTIONS: 1. No driving for 2 weeks, or until physician gives their ok. 2. The patient should sleep in their own bed, no medical bed needed. 3. Stairs are not an issue. If the bedroom is upstairs, it is advised that the patient go up at night and down in the morning for the first week. Go slowly, using handrail and take 1 step at a time. 4. No lifting, pushing, or pulling more than 5 pounds for 2 weeks. The physician will advise of any restriction changes. 5. Continue pain control per as needed orders. 6. Continue with incentive spirometry until otherwise directed by the physician. 7. Must shower daily using liquid antibacterial soap starting Tuesday June 21, 2016. 8. Please remove chest dressing on [June] with routine incision care thereafter. 9. Continue Jevity tube feeding via PEG tube @ 60 ml/hr. Allow/encourage patient to eat to supplement. Plan - Discharge Summary Discharge Medication List Diltiazem HCl [Diltiazem 24Hr ER] 180 mg PO QAM 05/21/14 [History] Omeprazole 20 mg PO QAM 05/21/14 [History] Hydrochlorothiazide 25 mg PO DAILY 04/18/16 [History] HYDROcodone/APAP 7.5-325MG [[place] 7.5-325] 1 tab PO Q6HR PRN 05/23/16 [History] Labetalol [Trandate] 200 mg PO DAILY 05/27/16 [History] Follow up Appointment(s)/Referral(s): Christine De MD [STAFF PHYSICIAN] - 07/26/16 1:30 pm Enoch Weinberg DO [Primary Care Provider] - 1 Week ( please make appointment upon discharge from rehab) Deny Negron MD [STAFF PHYSICIAN] - 07/11/16 2:30 pm Activity/Diet/Wound Care/Special Instructions: DISCHARGE INSTRUCTIONS: 1. No driving for 2 weeks, or until physician gives their ok. 2. The patient should sleep in their own bed, no medical bed needed. 3. Stairs are not an issue. If the bedroom is upstairs, it is advised that the patient go up at night and down in the morning for the first week. Go slowly, using handrail and take 1 step at a time. 4. No lifting, pushing, or pulling more than 5 pounds for 2 weeks. The physician will advise of any restriction changes. 5. Continue pain control per as needed orders. 6. Continue with incentive spirometry until otherwise directed by the physician. 7. Must shower daily using liquid antibacterial soap starting Tuesday June 21, 2016. 8. Please remove chest dressing on [June] with routine incision care thereafter. 9. Continue Jevity tube feeding via PEG tube @ 60 ml/hr. Allow/encourage patient to eat to supplement.
[2016-06-20 15:23] VITALS: BMI 18.3
--- NOTE | 2016-06-20 16:43 | P.PN ---
Subjective This 69-year-old male patient is still recovering from his right middle lobe and right lower lobe resection for non-small cell lung cancer/squamous cell carcinoma. The patient had significant amount of air leak postop and the patient has been in the hospital for more than 2 weeks. During the current hospital stay, the patient became progressively weak and malnourished. PEG tube was inserted for nutritional support and the patient is tolerating the PEG tube without any major difficulties. The patient ultimately improved and currently chest tube is removed and the right lung is well expanded. There is some limited subcutaneous emphysema along the right chest area. The patient is looking better today. He is working with physical therapy and he did some limited amount of walking and standing up and weightbearing. No pain. No change in mental status. No other complaints otherwise for now. Objective - Vital Signs Vital signs: Vital Signs Temp 98.2 F 06/20/16 08:25 Pulse 72 06/20/16 16:18 Resp 16 06/20/16 08:25 BP 171/92 06/20/16 08:25 Pulse Ox 96 06/20/16 08:25 Intake & Output 06/19/16 06/20/16 06/20/16 18:59 06:59 18:59 Intake Total 1200 480 480 Output Total 11 1 Balance 1189 479 480 Weight 58 kg 58 kg Intake: Oral 240 Tube Feeding 960 480 480 Output: Chest Tube Drainage 10 Chest Tube Right 10 Stool 1 1 Other: Voiding Method Diaper Diaper Diaper # Voids 4 1 # Bowel Movements 1 - Exam Head exam was generally normal. There was no scleral icterus or corneal arcus. Mucous membranes were moist.Neck was supple and without jugular venous distension, thyromegaly, or carotid bruits. Carotids were easily palpable bilaterally. There was no adenopathy.lung sounds are diminished on the right compared to the left. The patient has diminished breath sound in the right compared to the left. The patient also has subcutaneous emphysema along the right lateral anterior chest extending to his neck. Cardiac exam revealed the PMI to be normally situated and sized. The rhythm was regular and no extrasystoles were noted during several minutes of auscultation. The first and second heart sounds were normal and physiologic splitting of the second heart sound was noted. There were no murmurs, rubs, clicks, or gallops.Abdominal exam revealed normal bowel sounds. The abdomen was soft, non-tender, and without masses, organomegaly, or appreciable enlargement of the abdominal aorta.Examination of the extremities revealed easily palpable radial, femoral and pedal pulses. There was no cyanosis, clubbing or edema. - Labs CBC & Chem 7: 06/19/16 06:16 06/19/16 06:16 Assessment and Plan Plan: Impression: #1 Squamous cell carcinoma. Status post right middle and right lower lobectomy , The patient has T2B, N0, M0 disease. #2 extensive air leak with a fair sized pneumothorax involving the right lung. They are leak has recovered and the patient's right lung as well expanded. Chest tube is out and the patient has some residual saphenous emphysema along the right chest wall area. #3 Chronic and ongoing tobacco dependence. #4 Hypertension. #5 Gastroesophageal reflux fluid disease. #6 chest wall pain secondary to above #7 history of smoking #8 nutritional deficiency and the patient has a PEG tube and for nutritional support Plan: Increased level of activity as tolerated. Increase physical therapy. Incentive spirometer. Nutritional support. Daily chest x-rays. Chest tube was removed. Pain control is adequate. We'll continue to follow.
[2016-06-20 21:58] VITALS: RESP 16
[2016-06-21 07:57] VITALS: BP 135/84; TEMP 99.2
[2016-06-21] MEDS: ASPIRIN 81 MG CHEW PO SCH (08:16)
[2016-06-21] MEDS: NICOTINE 14MG/24HR PATCH TRANSDERM SCH (08:16)
[2016-06-21] MEDS: PANTOPRAZOLE 40 MG TABLET PO SCH (08:16)
[2016-06-21] MEDS: METOPROLOL TARTRATE 50 MG TAB PO SCH (08:17)
[2016-06-21] MEDS: MEGESTROL 400 MG/10 ML CUP PO SCH (08:17)
[2016-06-21] MEDS: HEPARIN SODIUM,PORCINE 5,000 UNIT/ML 1 ML VIAL SQ SCH (08:17)
[2016-06-21] MEDS: DILTIAZEM CD 240 MG CAP.ER.24H PO SCH (08:17)
[2016-06-21] MEDS: ATORVASTATIN 40 MG TAB PO SCH (08:17)
[2016-06-21] MEDS: SERTRALINE 50 MG TAB PO SCH (08:18)
[2016-06-21] MEDS: HYDROcodone/APAP 5-325MG 1 EACH TAB PO PRN (08:18)
--- NOTE | 2016-06-21 09:06 | PN ---
DATE OF SERVICE: 06/20/2016 PRESENTING COMPLAINT: Right partial lobectomy. INTERVAL HISTORY: This is a 71-year-old male, status post right middle and lower lobectomy. Today patient is sitting up with a breakfast tray in front of him, attempting to eat some breakfast and it does appear that he is eaten some of his breakfast. However, patient does continue to complain of not having much of an appetite. Tube feeding continues infusing. Patient continues to be able to answer simple straightforward questions but is markedly more alert, more participatory and more interested in his condition and attempting to get better. Review of systems for constitutional, cardiovascular, gastrointestinal, pulmonary, with relevant findings above. CURRENT MEDICATIONS: [place], DuoNeb, diltiazem, Tube feeding infusing with a goal rate of 50 mL an hour and currently is at 50. PHYSICAL EXAMINATION: VITAL SIGNS: Temperature 98.2, pulse 78, respiratory rate 16, blood pressure 171/92, oxygen saturation 96% on room air. GENERAL APPEARANCE: Patient is sitting up in bed with a breakfast tray in front of him. Looks comfortable, making jokes, much more perky today. EYES: Pupils equal. Conjunctivae are normal. NECK: JVD not raised. Mass not palpable. LUNGS: Coarse breath sounds bilaterally, lung will respiratory effort normal, unlabored. CARDIOVASCULAR: First and second sounds noted. No edema. ABDOMEN: Soft, nontender. PEG tube site well-maintained. Liver and spleen not palpable. PSYCHIATRIC: Alert and oriented x3. Able to continue to answer simple questions. Mood and affect appropriate for situation. INVESTIGATIONS: White blood cell count 10.2, hemoglobin 15.6, platelet count 343, sodium 145, potassium 4.2, BUN 20, creatinine 0.65. Chest x-ray reveals a small right apical pneumothorax, slightly decreased in the interval. Postsurgical changes of volume loss in the right hemithorax. ASSESSMENT: 1. Right pneumothorax, status post chest tube. 2. PEG tube placed for malnutrition. 3. Emphysema in this current smoker. 4. Chronic nicotine dependence. 5. Essential hypertension. 6. Gastroesophageal reflux disease. 7. Chronic alcohol dependence, status post delirium tremens. 8. Subcutaneous emphysema on the right upper chest wall. 9. Medical debility, patient remains rather weak and tired. 10. Moderate protein calorie malnutrition from decreased oral intake, status post G-tube placement. 11. Right middle and lower lobectomy of the left lobe along with pathology showing squamous cell carcinoma. PLAN: Continue current medication and treatment plan. Cardiothoracic Surgery continues to follow with chest x-ray. Prognosis remains guarded. Plan is to discharge patient to inpatient rehab. Patient's mood and affect seem improved although Psychiatry was consulted and will follow along the case. Patient was seen and examined by nurse practitioner, Zainab Rivera and all elements of the case were discussed with attending, Dr. Albert.
[2016-06-21] MEDS: IPRATROPIUM-ALBUTEROL 3 ML NEB IH SCH (09:23)
[2016-06-21 09:26] VITALS: PULSE 76
--- NOTE | 2016-06-21 11:07 | PN ---
DATE OF SERVICE: 06/20/2016 Attending note: This patient was seen and examined by me today. The patient is status post right lung surgery. Chest tube has been out. Doing much better. Tolerating tube feeding. Actually more perking. Talking. On examination, lungs decreased breath sounds. Some crackles. CARDIOVASCULAR: First and second sounds normal. PSYCHIATRY: Alert and oriented x3. ABDOMEN: PEG tube in place. INVESTIGATIONS: White count 10.2. Potassium 4.2. ASSESSMENT: 1. Emphysema. 2. Protein calorie malnutrition getting PEG tube feeding. PLAN: The patient doing much better. Medically stable for discharge. The patient doing rather well with feeding.
--- NOTE | 2016-06-21 11:16 | P.PN ---
Subjective This 69-year-old male patient is still recovering from his right middle lobe and right lower lobe resection for non-small cell lung cancer/squamous cell carcinoma. The patient had significant amount of air leak postop and the patient has been in the hospital for more than 2 weeks. During the current hospital stay, the patient became progressively weak and malnourished. PEG tube was inserted for nutritional support and the patient is tolerating the PEG tube without any major difficulties. The patient ultimately improved and currently chest tube is removed and the right lung is well expanded. There is some limited subcutaneous emphysema along the right chest area. The patient is looking better today. He is working with physical therapy and he did some limited amount of walking and standing up and weightbearing. No pain. No change in mental status. No other complaints otherwise for now. On 06/21/2016 the patient is being seen in follow-up. No chest x-ray has been obtained from today. Her chest x-ray from yesterday showed chronic special the right lung without evidence of any pneumothorax. The patient is undergoing physical therapy. He is more active and interactive. He is receiving tube feeds. No new complaints over the past 24 hours. Objective - Vital Signs Vital signs: Vital Signs Temp 99.2 F 06/21/16 07:56 Pulse 76 06/21/16 09:30 Resp 16 06/21/16 07:56 BP 135/84 06/21/16 07:56 Pulse Ox 99 06/21/16 09:24 Intake & Output 06/20/16 06/21/16 06/21/16 18:59 06:59 18:59 Intake Total 480 330 120 Output Total 451 326 Balance 29 4 120 Weight 58 kg Intake: Oral 200 Tube Feeding 480 130 120 Output: Urine 450 325 Stool 1 1 Other: Voiding Method Diaper Diaper # Voids 1 - Exam Head exam was generally normal. There was no scleral icterus or corneal arcus. Mucous membranes were moist.Neck was supple and without jugular venous distension, thyromegaly, or carotid bruits. Carotids were easily palpable bilaterally. There was no adenopathy.lung sounds are diminished on the right compared to the left. The patient has diminished breath sound in the right compared to the left. The patient also has subcutaneous emphysema along the right lateral anterior chest extending to his neck. Cardiac exam revealed the PMI to be normally situated and sized. The rhythm was regular and no extrasystoles were noted during several minutes of auscultation. The first and second heart sounds were normal and physiologic splitting of the second heart sound was noted. There were no murmurs, rubs, clicks, or gallops.Abdominal exam revealed normal bowel sounds. The abdomen was soft, non-tender, and without masses, organomegaly, or appreciable enlargement of the abdominal aorta.Examination of the extremities revealed easily palpable radial, femoral and pedal pulses. There was no cyanosis, clubbing or edema. - Labs CBC & Chem 7: 06/19/16 06:16 06/19/16 06:16 Assessment and Plan Plan: Impression: #1 Squamous cell carcinoma. Status post right middle and right lower lobectomy , The patient has T2B, N0, M0 disease. #2 extensive air leak with a fair sized pneumothorax involving the right lung. They are leak has recovered and the patient's right lung as well expanded. Chest tube is out and the patient has some residual saphenous emphysema along the right chest wall area. #3 Chronic and ongoing tobacco dependence. #4 Hypertension. #5 Gastroesophageal reflux fluid disease. #6 chest wall pain secondary to above #7 history of smoking #8 nutritional deficiency and the patient has a PEG tube and for nutritional support Plan: Increased level of activity as tolerated. Increase physical therapy. Incentive spirometer. Nutritional support. Repeat the chest x-ray. continue enteral feeding for nutritional support. We'll continue to follow. Condition is stable for now.
--- NOTE | 2016-06-22 05:15 | PN ---
DATE OF SERVICE: 06/21/2016 PRESENTING COMPLAINT: Right partial lobectomy. INTERVAL HISTORY: This is a 71-year-old male status post right middle and lower lobectomy. Today patient is sitting up eating a breakfast tray. States he feels well. Patient's alert and oriented, able to answer questions. No complaints of pain. Has moved his bowels. NG tube feedings are currently infusing. Review of systems done for constitutional, cardiovascular, gastrointestinal, pulmonary with relevant findings above. CURRENT MEDICATIONS: [place], DuoNeb, diltiazem, tube feeding infusing with a goal rate of 50 mL an hour is currently at 50. PHYSICAL EXAM: VITAL SIGNS: Temperature 99.2, pulse 82, respirations 16, blood pressure 135/84, oxygen saturation 99% on room air. EYES: Pupils equal. Conjunctivae normal. NECK: JVD not raised. Mass not palpable. LUNGS: Coarse breath sounds bilaterally. RESPIRATORY: Effort normal, unlabored. CARDIOVASCULAR: First and second sounds noted. No edema. ABDOMEN: Soft, nontender. PEG tube site well maintained. Liver and spleen not palpable. PSYCHIATRIC: Alert and oriented x3. Able to continue to answer simple questions. Mood and affect appropriate for situation. INVESTIGATIONS: No new labs. No new tests. ASSESSMENT: 1. Right pneumothorax, status post chest tube removal. 2. PEG tube placed for malnutrition. 3. Emphysema in a current smoker. 4. Chronic nicotine dependence. 5. Essential hypertension. 6. Gastroesophageal reflux disease. 7. Chronic alcohol dependence, status post delirium tremens. 8. Subcutaneous emphysema on the right upper chest wall. 9. Medical debility. Patient remains rather weak and tired. 10. Moderate protein calorie malnutrition from decreased oral intake, status post G-tube placement. 11. Right middle and lower lobectomy of the left lobe along with pathology showing squamous cell carcinoma. PLAN: Continuation of current medication and treatment plan. Plan is to discharge patient to inpatient rehab today 06/21/2016. Patient was seen and examined by nurse practitioner, Zainab Rivera, and all elements of the case were discussed with attending, Dr. Albert.
--- NOTE | 2016-06-30 05:54 | PN ---
DATE OF SERVICE: 06/02/2016 ATTENDING NOTE: This patient was seen and examined by me on 06/02/16. I reviewed the note of my nurse practitioner, Ms. Rivera, and discussed and agreed with the same. Patient is status post right middle and lower lobe lobectomy, chest tube in place. No air leak. Patient eating some diet. Sitting up in bed, watching TV. On examination, afebrile blood pressure 120/73, pulse ox 94% on room air. LUNGS: Slightly decreased breath sounds and subcutaneous emphysema in the right upper chest. CARDIOVASCULAR: First and second sounds normal. PSYCH: Alert and oriented x3. Right chest tube remains in place. Chest x-ray showed a pneumothorax of 80%. ASSESSMENT: 1. Emphysema. 2. Status post right middle and lower lobe resection for lung cancer. 3. Right pneumothorax. 4. Subcutaneous emphysema. PLAN: Continue current medication and treatment plan. Patient encouraged to increase oral intake. Will follow.
--- NOTE | 2016-06-30 23:49 | PN ---
DATE OF SERVICE: 05/31/2016 ATTENDING NOTE: This patient was seen and examined by me on 05/31/16. I reviewed the notes of my nurse practitioner, Ms. Rivera. I agree with the same and discussed with her. Patient is status post right lung surgery with a chest tube in place. Some air leak is present. Patient said he has had a bowel movement. Breathing is better. On examination, pulse ox 96% on room air. Blood pressure 110/70. Patient is awake, sitting up. Lungs have decreased breath sounds, some crackles in the right side. ABDOMEN: Soft, non-tender. Liver and spleen not palpable. Chest wall has right-sided chest tube in place. Subcutaneous emphysema. ASSESSMENT: 1. Right middle and lower lobe resection for lung cancer, including cryoablation. 2. Subcutaneous emphysema from air leak with a chest tube in place and right-sided pneumothorax, iatrogenic. PLAN: Patient will be kept on current dose of Valium, which is slowly being scaled back. Other medication and treatment plan is to continue.
--- NOTE | 2016-07-01 07:08 | PN ---
DATE OF SERVICE: 06/01/2016 ATTENDING NOTE: This patient was seen and examined by me. I reviewed the note of my nurse practitioner, Ms. Rivera, discussed and agree with the same. The patient is status post right lung resection for lung cancer, midlung lower lobe. Chest tube in place. Valium was discontinued. Sitting up in a chair, tolerating his diet. On examination, blood pressure 121/69, pulse ox 95% on room air. LUNGS: Decreased breath sounds. Some crackles in the right side. PSYCH: Alert and oriented x3. Right chest tube remains in place. ASSESSMENT: 1. Right middle lower lobe resection for lung cancer. 2. Delirium tremens, improved. 3. Right pneumothorax. Chest tube in place. 4. Subcutaneous emphysema. PLAN: Continue current medication and treatment plan. Valium has been discontinued. Patient encouraged to increase oral intake.
--- NOTE | 2016-07-01 07:55 | PN ---
DATE OF SERVICE: 06/03/2016 ATTENDING NOTE: This patient seen and examined by me. I reviewed the note of my nurse practitioner, Ms. Rivera, discussed and agreed. Patient is status post right lung surgery with chest tube in place. Did not eat much today. Awake, sitting up. On examination, afebrile blood pressure 120/68, pulse ox 98% on room air. LUNGS: Decreased breath sounds with crackles on the right side, chest tube remains in place. Chest x-ray shows interval improvement in the pneumothorax. ASSESSMENT: 1. Right middle lobe resection lung cancer with intercostal Cryoblation. 2. Emphysema. 3. Right chest tube in place with ( ) pneumothorax, improving. 4. Subcutaneous emphysema. PLAN: Continue current medication and treatment plan. Encourage the patient out of the bed. Dr. Rivera consulted for rehab.
== END 2016-06-21 11:00 | DRG 163 ==
LOC: 2ORMAIN 08:42 → 6SEL 15:18 → 5MS5E 06-19 16:42
PROVIDERS: ADMIT Thoracic Surgery (Cardiothoracic Vascular Surgery); ATTEND Thoracic Surgery (Cardiothoracic Vascular Surgery)
PROC: 0BTD0ZZ Resection of Right Middle Lung Lobe, Open Approach (ICD-10-PCS; 2016-05-27)
PROC: 005 Central Nervous System and Cranial Nerves, Destruction (ICD-10-PCS; 2016-05-27)
PROC: 07B70ZX Excision of Thorax Lymphatic, Open Approach, Diagnostic (ICD-10-PCS; 2016-05-27)
PROC: 0W9900Z Drainage of Right Pleural Cavity with Drainage Device, Open Approach (ICD-10-PCS; 2016-05-27)
PROC: 0BTF0ZZ Resection of Right Lower Lung Lobe, Open Approach (ICD-10-PCS; principal; 2016-05-27 10:00)
PROC: 0DH63UZ Insertion of Feeding Device into Stomach, Percutaneous Approach (ICD-10-PCS; 2016-06-15)
PROC: 3E0G76Z Introduction of Nutritional Substance into Upper GI, Via Natural or Artificial Opening (ICD-10-PCS; 2016-06-15)
DX: C34.31 Malignant neoplasm of lower lobe, right bronchus or lung (principal); E43 Unspecified severe protein-calorie malnutrition; G92 Toxic encephalopathy; I69.354 Hemiplegia and hemiparesis following cerebral infarction affecting left non-dominant side; F10.231 Alcohol dependence with withdrawal delirium; R64 Cachexia; J95.812 Postprocedural air leak; Z68.1 Body mass index [BMI] 19.9 or less, adult; J98.19 Other pulmonary collapse; J93.83 Other pneumothorax; I11.0 Hypertensive heart disease with heart failure; D75.1 Secondary polycythemia; I50.9 Heart failure, unspecified; E86.0 Dehydration; J44.9 Chronic obstructive pulmonary disease, unspecified; D75.89 Other specified diseases of blood and blood-forming organs; F17.210 Nicotine dependence, cigarettes, uncomplicated; R29.6 Repeated falls; K21.9 Gastro-esophageal reflux disease without esophagitis; K44.9 Diaphragmatic hernia without obstruction or gangrene; K29.70 Gastritis, unspecified, without bleeding; R09.1 Pleurisy; F32.9 Major depressive disorder, single episode, unspecified; T40.2X5A Adverse effect of other opioids, initial encounter; T81.82XA Emphysema (subcutaneous) resulting from a procedure, initial encounter; Z79.899 Other long term (current) drug therapy; Y83.6 Removal of other organ (partial) (total) as the cause of abnormal reaction of the patient, or of later complication, without mention of misadventure at the time of the procedure; Y92.230 Patient room in hospital as the place of occurrence of the external cause
CPT/HCPCS: 36620; 43246; 71010; 71020; 80048; 80053; 81003; 83735; 84100; 84132; 84134; 85025; 85027; 85610; 86850; 86900; 86901; 87086; 88305; 88309; 88313; 88331; 94640; 94760

== ENCOUNTER 2016-09-21 10:30 | Inpatient (IN) | payer MEDICARE, OTHER ==
[2016-09-21] MEDS ORDERED: SODIUM CHLORIDE 0.9% 1,000 ML IV STA (10:42)
[2016-09-21] MEDS ORDERED: PANTOPRAZOLE 40 MG/10 ML VIAL IVP STA (10:42)
--- NOTE | 2016-09-21 10:42 | ED ---
GI Bleed HPI - General Stated complaint: GI Bleed Time Seen by Provider: 09/21/16 10:30 Source: patient, RN notes reviewed - History of Present Illness Initial comments: This is a 71-year-old male with a PEG tube history of lung cancer who is brought in for evaluation for blood in his emesis. Is unclear whether was dark red bright red or black colored. Patient appears be weak and pale per paramedics. He is found have a blood pressure 90/56 no other reported this time is available - Related Data Home Medications Medication Instructions Recorded Confirmed HYDROcodone/APAP 7.5-325MG [[place] 1 tab PO Q6H PRN 09/21/16 09/21/16 7.5-325] Labetalol [Trandate] 100 mg PO BID 09/21/16 09/21/16 Previous Rx's Medication Instructions Recorded Diltiazem HCl [Diltiazem 24Hr ER] 180 mg PO QAM #30 cap.er.24h 06/20/16 Omeprazole 20 mg PO QAM #30 capsule. 06/20/16 Allergies Allergy/AdvReac Type Severity Reaction Status Date / Time No Known Allergies Allergy Verified 09/21/16 11:17 Review of Systems ROS Statement: Those systems with pertinent positive or pertinent negative responses have been documented in the HPI. ROS Other: All systems not noted in ROS Statement are negative. 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 History of Any Multi-Drug Resistant Organisms: None Reported Past Surgical History: No Surgical Hx Reported Additional Past Surgical History / Comment(s): bronchoscopy Past Anesthesia/Blood Transfusion Reactions: No Reported Reaction Additional Past Anesthesia/Blood Transfusion Reaction / Comment(s): unknown anesthesia and family hx Past Psychological History: No Psychological Hx Reported Smoking Status: Former smoker Past Alcohol Use History: Daily Additional Past Alcohol Use History / Comment(s): down to 3/4ppd, has smoked for 50 yrs., drinks 1/2 pint Black daily. He lives at home with his daughter. There is 1 dog in the home. He has recently been incarcerated. Past Drug Use History: None Reported - Past Family History Father History Unknown: Yes Mother History Unknown: Yes General Exam - General Exam Comments Initial Comments: Is a well-developed sciatica appearing male he does appear to be pale General appearance: alert, in no apparent distress Head exam: Present: atraumatic, normocephalic, normal inspection Eye exam: Present: normal appearance, PERRL, EOMI. Absent: scleral icterus, conjunctival injection, periorbital swelling ENT exam: Present: mucous membranes dry Neck exam: Present: normal inspection. Absent: tenderness, meningismus, lymphadenopathy Respiratory exam: Present: normal lung sounds bilaterally. Absent: respiratory distress, wheezes, rales, rhonchi, stridor Cardiovascular Exam: Present: regular rate, normal rhythm, normal heart sounds. Absent: systolic murmur, diastolic murmur, rubs, gallop, clicks GI/Abdominal exam: Present: soft, normal bowel sounds, other (PEG tube is in place no gross blood). Absent: distended, tenderness, guarding, rebound, rigid Extremities exam: Present: normal inspection, full ROM, normal capillary refill. Absent: tenderness, pedal edema, joint swelling, calf tenderness Back exam: Present: normal inspection Neurological exam: Present: alert, oriented X3, CN II-XII intact Psychiatric exam: Present: normal affect, normal mood Skin exam: Present: warm, dry, intact, normal color. Absent: rash Course Vital Signs 09/21/16 09/21/16 09/21/16 10:41 12:00 13:41 Temperature 97.3 F L 97.4 F L Pulse Rate 94 97 100 Respiratory 20 16 18 Rate Blood Pressure 121/85 118/84 140/99 O2 Sat by Pulse 99 100 100 Oximetry 09/21/16 09/21/16 14:10 14:45 Temperature Pulse Rate 102 H 104 H Respiratory 18 18 Rate Blood Pressure 130/85 120/76 O2 Sat by Pulse 99 99 Oximetry Medical Decision Making - Medical Decision Making I did discuss findings with the patient will be admitted for GI consultation - Lab Data Result diagrams: 09/21/16 11:00 09/21/16 11:00 Lab Results 09/21/16 09/21/16 09/21/16 Range/Units 11:00 11:00 11:00 WBC 11.5 H (3.8-10.6) k/uL RBC 4.43 (4.30-5.90) m/uL Hgb 12.5 L (13.0-17.5) gm/dL Hct 36.8 L (39.0-53.0) % MCV 83.1 (80.0-100.0) fL MCH 28.3 (25.0-35.0) pg MCHC 34.0 (31.0-37.0) g/dL RDW 17.2 H (11.5-15.5) % Plt Count 409 (150-450) k/uL Neutrophils % 84 % Lymphocytes % 8 % Monocytes % 6 % Eosinophils % 1 % Basophils % 0 % Neutrophils # 9.6 H (1.3-7.7) k/uL Lymphocytes # 0.9 L (1.0-4.8) k/uL Monocytes # 0.7 (0-1.0) k/uL Eosinophils # 0.1 (0-0.7) k/uL Basophils # 0.0 (0-0.2) k/uL Anisocytosis Slight PT (9.0-12.0) sec INR (<1.2) APTT (22.0-30.0) sec Sodium (137-145) mmol/L Potassium (3.5-5.1) mmol/L Chloride (98-107) mmol/L Carbon Dioxide (22-30) mmol/L Anion Gap mmol/L BUN (9-20) mg/dL Creatinine (0.66-1.25) mg/dL Est GFR (MDRD) Af Amer (>60 ml/min/1.73 sqM) Est GFR (MDRD) Non-Af (>60 ml/min/1.73 sqM) Glucose (74-99) mg/dL Calcium (8.4-10.2) mg/dL Magnesium (1.6-2.3) mg/dL Total Bilirubin (0.2-1.3) mg/dL AST (17-59) U/L ALT (21-72) U/L Alkaline Phosphatase (38-126) U/L Total Creatine Kinase 47 L (55-170) U/L CK-MB (CK-2) 1.1 (0.0-2.4) ng/mL CK-MB (CK-2) Rel Index 2.3 Troponin I 0.013 (0.000-0.034) ng/mL Total Protein (6.3-8.2) g/dL Albumin (3.5-5.0) g/dL Gastric Occult Blood (Negative) Blood Type O Positive Blood Type Recheck No Antibody Screen NEGATIVE Spec Expiration Date 09/24/2016229909/21/16 09/21/16 09/21/16 Range/Units 11:00 11:00 11:00 WBC (3.8-10.6) k/uL RBC (4.30-5.90) m/uL Hgb (13.0-17.5) gm/dL Hct (39.0-53.0) % MCV (80.0-100.0) fL MCH (25.0-35.0) pg MCHC (31.0-37.0) g/dL RDW (11.5-15.5) % Plt Count (150-450) k/uL Neutrophils % % Lymphocytes % % Monocytes % % Eosinophils % % Basophils % % Neutrophils # (1.3-7.7) k/uL Lymphocytes # (1.0-4.8) k/uL Monocytes # (0-1.0) k/uL Eosinophils # (0-0.7) k/uL Basophils # (0-0.2) k/uL Anisocytosis PT 11.9 (9.0-12.0) sec INR 1.2 H (<1.2) APTT 24.5 (22.0-30.0) sec Sodium 137 (137-145) mmol/L Potassium 4.2 (3.5-5.1) mmol/L Chloride 94 L (98-107) mmol/L Carbon Dioxide 30 (22-30) mmol/L Anion Gap 13 mmol/L BUN 44 H (9-20) mg/dL Creatinine 1.60 H (0.66-1.25) mg/dL Est GFR (MDRD) Af Amer 52 (>60 ml/min/1.73 sqM) Est GFR (MDRD) Non-Af 43 (>60 ml/min/1.73 sqM) Glucose 139 H (74-99) mg/dL Calcium 9.8 (8.4-10.2) mg/dL Magnesium 1.9 (1.6-2.3) mg/dL Total Bilirubin 0.6 (0.2-1.3) mg/dL AST 39 (17-59) U/L ALT 52 (21-72) U/L Alkaline Phosphatase 105 (38-126) U/L Total Creatine Kinase (55-170) U/L CK-MB (CK-2) (0.0-2.4) ng/mL CK-MB (CK-2) Rel Index Troponin I (0.000-0.034) ng/mL Total Protein 7.6 (6.3-8.2) g/dL Albumin 3.8 (3.5-5.0) g/dL Gastric Occult Blood Positive (Negative) Blood Type Blood Type Recheck Antibody Screen Spec Expiration Date - Radiology Data Radiology results: report reviewed, image reviewed (I did review the imaging no acute findings) Disposition Clinical Impression: Upper GI bleed, Renal insufficiency Disposition: ADMITTED IP TO THIS [facility] Condition: Stable Referrals: Enoch Weinberg DO [Primary Care Provider] - 1-2 days
[2016-09-21 11:25] LABS: Anisocytosis Slight; Basophils % (A) 0 %; CH 27.9; CHCM 33.8; Eosinophils # (A) 0.1 k/uL (0-0.7); Eosinophils % (A) 1 %; HCT 36.8 % (39.0-53.0); HDW 2.85; HGB 12.5 gm/dL (13.0-17.5); Luc % (Auto) 2; Lymphocytes # (A) 0.9 k/uL (1.0-4.8); Lymphocytes % (A) 8 %; MCH 28.3 pg (25.0-35.0); MCV 83.1 fL (80.0-100.0); Mean Platelet Volume 7.1; Monocytes # (A) 0.7 k/uL (0-1.0); Monocytes % (A) 6 %; Neutrophils # (A) 9.6 k/uL (1.3-7.7); Neutrophils % (A) 84 %; RBC 4.43 m/uL (4.30-5.90); RDW 17.2 % (11.5-15.5); WBC 11.5 k/uL (3.8-10.6); WBC (Perox) 11.22
[2016-09-21 11:36] LABS: Calcium 9.8 mg/dL (8.4-10.2); Magnesium 1.9 mg/dL (1.6-2.3); Potassium 4.2 mmol/L (3.5-5.1); Total Bilirubin 0.6 mg/dL (0.2-1.3); Total Protein 7.6 g/dL (6.3-8.2)
[2016-09-21 11:49] LABS: INR 1.2 (<1.2); Partial Thromboplastin Time 24.5 sec (22.0-30.0); Prothrombin Time 11.9 sec (9.0-12.0)
[2016-09-21 11:55] LABS: Creatine Kinase MB 1.1 ng/mL (0.0-2.4); Troponin I 0.013 ng/mL (0.000-0.034)
[2016-09-21] MEDS ORDERED: HYDROmorphone 1 MG/ML 1 ML SYRINGE IM STA (12:28)
[2016-09-21] MEDS ORDERED: HYDROmorphone 1 MG/ML 1 ML SYRINGE IVP STA (12:41)
--- NOTE | 2016-09-21 14:11 | XR ---
EXAMINATION TYPE: XR abdomen 1V DATE OF EXAM: 09/21/2016 CLINICAL DATA: 71-year-old male with pain, PH[facility] COMPARISON: 08/22/2015 FINDINGS: Supine imaging limited for assessment of free intraperitoneal air. No dilated small bowel or air-fluid levels. Scattered air and stool seen throughout the colon extendi ng distally into the rectum. Mild overall stool burden particularly on the right hemicolon. PEG tube is present. Pelvic phleboliths. IMPRESSION: PEG tube. No evidence of bowel bowel obstruction.
[2016-09-21] MEDS ORDERED: NALOXONE 0.4 MG/ML 1 ML VIAL IV PRN (15:13)
[2016-09-21] MEDS: ONDANSETRON 4 MG/2 ML VIAL IVP PRN (16:10)
[2016-09-21] MEDS: SODIUM CHLORIDE 0.9% 1,000 ML IV SCH (16:10)
[2016-09-21 17:44] LABS: Anisocytosis Slight; CH 27.5; CHCM 32.8; HCT 36.2 % (39.0-53.0); HDW 2.82; HGB 12.1 gm/dL (13.0-17.5); MCH 28.2 pg (25.0-35.0); MCHC 33.4 g/dL (31.0-37.0); MCV 84.4 fL (80.0-100.0); Mean Platelet Volume 6.7; RBC 4.29 m/uL (4.30-5.90); RDW 17.2 % (11.5-15.5); WBC 9.6 k/uL (3.8-10.6)
[2016-09-21] MEDS: PANTOPRAZOLE 40 MG/10 ML VIAL IV SCH (21:33)
--- NOTE | 2016-09-22 00:16 | P.HPIM ---
History of Present Illness H&P Date: 09/21/16 Chief Complaint: Vomiting blood This is a 71-year-old male with a history of CVA with left-sided weakness, dysphagia with PEG tube and history of lung cancer status post right thoracotomy ,who is brought in for evaluation for blood in his emesis. Is unclear whether was dark red bright red or black colored. Patient appears be weak and pale per paramedics. He is found have a blood pressure 90/56 no other reported this time is available. Patient's hemoglobin is fairly stable. Denied a complaints of cough or sputum production. No fever no chills. No recent illnesses. Patient does have history of hypertension and is on 2 blood pressure medications which are held due to hypotension. GI was consulted for further evaluation. Review of Systems CONSTITUTIONAL: No fever, no malaise, positive to generalized weakness and fatigue. HEENT: No recent visual problems or hearing problems. Denied any sore throat. CARDIOVASCULAR: No chest pain, orthopnea, PND, no palpitations, no syncope. PULMONARY: , no hemoptysis. GASTROINTESTINAL: Patient does have hematemesis. No diarrhea, no nausea, no vomiting, no abdominal pain. Normoactive bowel sounds. NEUROLOGICAL: No headaches, no weakness, no numbness. HEMATOLOGICAL: Denies any bleeding or petechiae. GENITOURINARY: Denies any burning micturition, frequency, or urgency. MUSCULOSKELETAL/RHEUMATOLOGICAL: Denies any joint pain, swelling, or any muscle pain. ENDOCRINE: Denies any polyuria or polydipsia. The rest of the 14-point review of systems is negative. 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 History of Any Multi-Drug Resistant Organisms: None Reported Past Surgical History: No Surgical Hx Reported Additional Past Surgical History / Comment(s): bronchoscopy Past Anesthesia/Blood Transfusion Reactions: No Reported Reaction Additional Past Anesthesia/Blood Transfusion Reaction / Comment(s): unknown anesthesia and family hx Past Psychological History: No Psychological Hx Reported Smoking Status: Former smoker Past Alcohol Use History: Daily Additional Past Alcohol Use History / Comment(s): down to 3/4ppd, has smoked for 50 yrs., drinks 1/2 pint Black daily. He lives at home with his daughter. There is 1 dog in the home. He has recently been incarcerated. Past Drug Use History: None Reported - Past Family History Father History Unknown: Yes Mother History Unknown: Yes Medications and Allergies Home Medications Medication Instructions Recorded Confirmed Type Aspirin [Adult Low Dose Aspirin EC] 81 mg PO DAILY 09/21/16 09/21/16 History Atorvastatin Calcium [Lipitor] 40 mg PO DAILY 09/21/16 09/21/16 History Hydrocodone/Acetaminophen [[place] 1 tab PO Q4HR 09/21/16 09/21/16 History 5-325] Loperamide HCl [Loperamide] 3 mg PEG/G-TUBE Q4H PRN 09/21/16 09/21/16 History Metoprolol Tartrate [Lopressor] 50 mg PO TID 09/21/16 09/21/16 History Ondansetron HCl [Zofran] 4 mg PO Q8HR PRN 09/21/16 09/21/16 History Phenergan Solution 12.5 mg IM Q6HR PRN 09/21/16 09/21/16 History Sertraline HCl [Zoloft] 50 mg PO DAILY 09/21/16 09/21/16 History Thiamine HCl [Vitamin B-1] 100 mg PO DAILY 09/21/16 09/21/16 History Allergies Allergy/AdvReac Type Severity Reaction Status Date / Time No Known Allergies Allergy Verified 09/21/16 11:17 Physical Exam Vitals: Vital Signs Temp Pulse Resp BP Pulse Ox 09/21/16 15:44 97.8 F 98 18 126/78 100 09/21/16 14:45 104 H 18 120/76 99 09/21/16 14:10 102 H 18 130/85 99 09/21/16 13:41 97.4 F L 100 18 140/99 100 09/21/16 12:00 97 16 118/84 100 09/21/16 10:41 97.3 F L 94 20 121/85 99 Intake and Output 09/21/16 09/21/16 09/21/16 06:59 14:59 22:59 Other: Weight 58.967 kg Patient Weight 09/22/16 06:59 Weight 58.967 kg PHYSICAL EXAMINATION: Patient is lying in the bed comfortably, no acute distress, awake alert and oriented.. HEENT: Normocephalic. Neck is supple. Pupils reactive. Nostrils clear. Oral cavity is moist. Ears reveal no drainage. Neck reveals no JVD, carotid bruits, or thyromegaly. CHEST EXAMINATION: Trachea is central. Symmetrical expansion. Lung will clear to auscultation and percussion. CARDIAC: Normal S1, S2 with no gallops. No murmurs ABDOMEN: Soft. Bowel sounds normal. No organomegaly. No abdominal bruits. Nontender. PEG tube site clean and no signs of infection Extremities reveal no edema. No clubbing or cyanosis Neurologically awake, alert, oriented x3 . Left-sided weakness. Patient does have dysarthria Skin: no rash or skin lesions Musculoskeletal: no joint swelling or deformity. Results CBC & Chem 7: 09/21/16 17:09 09/21/16 11:00 Labs: Abnormal Lab Results - Last 24 Hours (Table) 09/21/16 09/21/16 09/21/16 Range/Units 11:00 11:00 11:00 WBC 11.5 H (3.8-10.6) k/uL Hgb 12.5 L (13.0-17.5) gm/dL Hct 36.8 L (39.0-53.0) % RDW 17.2 H (11.5-15.5) % Neutrophils # 9.6 H (1.3-7.7) k/uL Lymphocytes # 0.9 L (1.0-4.8) k/uL INR (<1.2) Chloride 94 L (98-107) mmol/L BUN 44 H (9-20) mg/dL Creatinine 1.60 H (0.66-1.25) mg/dL Glucose 139 H (74-99) mg/dL Total Creatine Kinase 47 L (55-170) U/L 09/21/16 Range/Units 11:00 WBC (3.8-10.6) k/uL Hgb (13.0-17.5) gm/dL Hct (39.0-53.0) % RDW (11.5-15.5) % Neutrophils # (1.3-7.7) k/uL Lymphocytes # (1.0-4.8) k/uL INR 1.2 H (<1.2) Chloride (98-107) mmol/L BUN (9-20) mg/dL Creatinine (0.66-1.25) mg/dL Glucose (74-99) mg/dL Total Creatine Kinase (55-170) U/L Thrombosis Risk Factor Assmnt - Choose All That Apply Any of the Below Risk Factors Present?: Yes Each Factor Represents 1 point: Medical pt on bed rest Other Risk Factors: Yes Each Risk Factor Represents 2 Points: Age 61-74 years Other congenital or acquired thrombophilia - If yes, enter type in comment: No Thrombosis Risk Factor Assessment Total Risk Factor Score: 3 Thrombosis Risk Factor Assessment Level: Moderate Risk Assessment and Plan Plan: #1 hematemesis. Possible GI bleed upper #2 history of lung cancer status post right thoracotomy and lobectomy. #3 history of CVA with left-sided residual weakness and dysarthria and dysphagia #4 GERD, hypertension, history of smoking. 5 hypertension. Hold blood pressure medications. Plan: Patient will be continued on IV hydration and hold blood pressure medications. Continue to monitor hemoglobin. Will check iron profile. GI was consulted. We will hold blood pressure medications and follow closely. Further recommendations based on the clinical course.
[2016-09-22] MEDS: SODIUM CHLORIDE 0.9% 1,000 ML IV SCH ×4 (00:50→20:37)
[2016-09-22] MEDS: PANTOPRAZOLE 40 MG/10 ML VIAL IV SCH ×2 (08:00→20:34)
[2016-09-22 08:32] LABS: Anisocytosis Slight; Basophils % (A) 0 %; CH 28.5; CHCM 33.3; Eosinophils # (A) 0.1 k/uL (0-0.7); Eosinophils % (A) 1 %; HCT 35.1 % (39.0-53.0); HDW 2.82; HGB 11.1 gm/dL (13.0-17.5); Luc # (Auto) 0.18; Luc % (Auto) 2; Lymphocytes # (A) 0.9 k/uL (1.0-4.8); Lymphocytes % (A) 11 %; MCH 27.4 pg (25.0-35.0); MCHC 31.8 g/dL (31.0-37.0); MCV 86.3 fL (80.0-100.0); Mean Platelet Volume 7.3; Monocytes # (A) 0.5 k/uL (0-1.0); Monocytes % (A) 6 %; Neutrophils # (A) 6.3 k/uL (1.3-7.7); Neutrophils % (A) 80 %; RBC 4.07 m/uL (4.30-5.90); RDW 17.5 % (11.5-15.5); WBC 7.9 k/uL (3.8-10.6); WBC (Perox) 8.62
[2016-09-22 10:48] LABS: Calcium 9.6 mg/dL (8.4-10.2); Potassium 3.9 mmol/L (3.5-5.1)
[2016-09-22 10:57] LABS: % Iron Saturation 35.2 % (20-50)
--- NOTE | 2016-09-22 11:27 | P.CONS ---
History of Present Illness - Reason for Consult Consult date: 09/22/16 GI bleed Requesting physician: Roxanna Brar - History of Present Illness 71-year-old dysphasic male history of CVA recent diagnosis of non-small cell lung carcinoma May 2016 status post right thoracotomy, right middle and lower lobe lobectomy, mediastinal lymph node dissection, and cryo-ablation intercostal nerves performed by Dr. Negron with subsequent placement of gastrostomy tube June [address] Sweet. Patient resides at [facility]. His overall appearance is cachectic with a BMI of 19, 52 kg. Prior to lung surgery patient was residing with his daughter drink a half a pint of whiskey daily. Questionable history of cocaine abuse in the past. Admitted with reports of vomiting blood unsure coffee-ground emesis versus gross hematemesis. Patient is not able to provide details please refer to nursing documentation. Medical records were reviewed for additional information. Review of home medications include omeprazole 20 mg daily and baby aspirin. No NSAIDs or additional anti-platelet medications. No reports of melena hematochezia. Admission hemoglobin 12.5 presently 11.1 platelet 309. INR 1.2. BUN 44. Creatinine 1.6. Abdominal x-rays no evidence of bowel obstruction PEG tube present. Review of Systems Medical records reviewed. Patient unable to provide. Constitutional: Denies fever, chills, sweats, weight gain, or loss. HEENT: Negative for migraines, blurred vision or loss, earaches, drainage, tinnitus, oral mucosal lesions, dysphagia, or odynophagia. Cardiac: Negative for chest pain, arrhythmias, or palpitation. Respiratory: Lung carcinoma Negative for shortness of breath, hemoptysis, cough , or sputum production. Gastrointestinal: See HPI for pertinent findings. Genitourinary: Negative for hematuria, urgency, frequency, polyuria, dysuria, or penile discharge. Musculoskeletal: Negative for muscle aches, swelling, arthritis, and arthralgias. Neurologic: CVA with dysphagia. Endocrine: Negative for thyroid problems. Skin: Negative for rash or itching. 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 History of Any Multi-Drug Resistant Organisms: None Reported Past Surgical History: No Surgical Hx Reported Additional Past Surgical History / Comment(s): bronchoscopy Past Anesthesia/Blood Transfusion Reactions: No Reported Reaction Additional Past Anesthesia/Blood Transfusion Reaction / Comm: unknown anesthesia and family hx Past Psychological History: No Psychological Hx Reported Smoking Status: Former smoker Past Alcohol Use History: Daily Additional Past Alcohol Use History / Comment(s): down to 3/4ppd, has smoked for 50 yrs., drinks 1/2 pint Black daily. He lives at home with his daughter. There is 1 dog in the home. He has recently been incarcerated. Past Drug Use History: None Reported - Past Family History Father History Unknown: Yes Mother History Unknown: Yes Medications and Allergies Home Medications Medication Instructions Recorded Confirmed Type Aspirin [Adult Low Dose Aspirin EC] 81 mg PO DAILY 09/21/16 09/21/16 History Atorvastatin Calcium [Lipitor] 40 mg PO DAILY 09/21/16 09/21/16 History Hydrocodone/Acetaminophen [[place] 1 tab PO Q4HR 09/21/16 09/21/16 History 5-325] Loperamide HCl [Loperamide] 3 mg PEG/G-TUBE Q4H PRN 09/21/16 09/21/16 History Metoprolol Tartrate [Lopressor] 50 mg PO TID 09/21/16 09/21/16 History Ondansetron HCl [Zofran] 4 mg PO Q8HR PRN 09/21/16 09/21/16 History Phenergan Solution 12.5 mg IM Q6HR PRN 09/21/16 09/21/16 History Sertraline HCl [Zoloft] 50 mg PO DAILY 09/21/16 09/21/16 History Thiamine HCl [Vitamin B-1] 100 mg PO DAILY 09/21/16 09/21/16 History Allergies Allergy/AdvReac Type Severity Reaction Status Date / Time No Known Allergies Allergy Verified 09/21/16 11:17 Physical Exam Vitals: Vital Signs Temp Pulse Pulse Resp BP BP Pulse Ox 09/22/16 08:00 111 H 20 09/22/16 07:00 98.1 F 111 H 20 170/77 98 09/21/16 23:00 97.6 F 98 16 122/86 99 09/21/16 17:38 97.6 F 103 H 16 149/99 97 09/21/16 15:44 97.8 F 98 18 126/78 100 09/21/16 14:45 104 H 18 120/76 99 09/21/16 14:10 102 H 18 130/85 99 09/21/16 13:41 97.4 F L 100 18 140/99 100 09/21/16 12:00 97 16 118/84 100 09/21/16 10:41 97.3 F L 94 20 121/85 99 Intake and Output 09/21/16 09/22/16 09/22/16 22:59 06:59 14:59 Other: Voiding Method Incontinent Incontinent # Voids 1 2 # Bowel Movements 1 1 Weight 52.5 kg Patient Weight 09/23/16 06:59 Weight 52.5 kg General appearance: The patient is alert, oriented, in no acute distress. Dysphasic. HET: Head is normocephalic and atraumatic. Pupils are equal and reactive. Oropharynx is clear without lesions. Neck: Supple without lymphadenopathy. Trachea midline. Heart: S1 S2. Regular rate and rhythm. Lungs: No crackles or wheezes are heard. Abdomen: Soft, nontender, nondistended with bowel sounds. PEG tube intact without evidence of blood swelling drainage or erythema. No peritoneal signs. No palpable organomegaly or masses. Extremities: Normal skin color and turgor. No cyanosis, rash, ulceration, clubbing, or edema. Radial and pedal pulses are 2/4 bilaterally. Neurological: No focal deficits. Strength and sensation are grossly intact. Results CBC & Chem 7: 09/22/16 08:06 09/22/16 08:06 Labs: Abnormal Lab Results - Last 24 Hours (Table) 09/21/16 09/21/16 09/21/16 Range/Units 11:00 11:00 11:00 WBC 11.5 H (3.8-10.6) k/uL RBC (4.30-5.90) m/uL Hgb 12.5 L (13.0-17.5) gm/dL Hct 36.8 L (39.0-53.0) % RDW 17.2 H (11.5-15.5) % Neutrophils # 9.6 H (1.3-7.7) k/uL Lymphocytes # 0.9 L (1.0-4.8) k/uL INR (<1.2) Chloride 94 L (98-107) mmol/L BUN 44 H (9-20) mg/dL Creatinine 1.60 H (0.66-1.25) mg/dL Glucose 139 H (74-99) mg/dL Total Creatine Kinase 47 L (55-170) U/L 09/21/16 09/21/16 09/22/16 Range/Units 11:00 17:09 08:06 WBC (3.8-10.6) k/uL RBC 4.29 L 4.07 L (4.30-5.90) m/uL Hgb 12.1 L 11.1 L (13.0-17.5) gm/dL Hct 36.2 L 35.1 L (39.0-53.0) % RDW 17.2 H 17.5 H (11.5-15.5) % Neutrophils # (1.3-7.7) k/uL Lymphocytes # 0.9 L (1.0-4.8) k/uL INR 1.2 H (<1.2) Chloride (98-107) mmol/L BUN (9-20) mg/dL Creatinine (0.66-1.25) mg/dL Glucose (74-99) mg/dL Total Creatine Kinase (55-170) U/L Assessment and Plan (1) Upper GI bleed Narrative/Plan: Possibile peptic ulcer disease, gastritis, esophagitis, possible varices with history of ETOH abuse possible malignancy with history of recent diagnosis of lung carcinoma. Status: Acute (2) Anorexia Status: Chronic (3) ETOH abuse Status: Chronic (4) Non-small cell carcinoma of right lung Status: Chronic Plan: 1. Protonix 40 mg IV daily. Tube feeds today NPO after midnight. 2. CBC monitoring. 3. EGD evaluation tomorrow. The garage hand has discussed the risks, benefits and alternative therapies for the above-mentioned procedure and for both sedation/analgesia as well as necessary blood product administration, if indicated, as they pertain to this patient. The patient's advocate has indicated understanding and acceptance of the risks and procedures discussed. Thank you for this kind referral and the opportunity to participate in the care of your patient. This consultation was discussed with Dr. Shi. The impression and plan of care have been directed as dictated.
[2016-09-22] MEDS: HYDROmorphone 1 MG/ML 1 ML SYRINGE IV PRN (20:41)
[2016-09-23] MEDS: HYDROmorphone 1 MG/ML 1 ML SYRINGE IV PRN ×4 (04:53→22:32)
[2016-09-23] MEDS: ONDANSETRON 4 MG/2 ML VIAL IVP PRN ×2 (08:05→21:52)
[2016-09-23] MEDS: PANTOPRAZOLE 40 MG/10 ML VIAL IV SCH ×2 (08:10→21:52)
[2016-09-23] MEDS: SODIUM CHLORIDE 0.9% 1,000 ML IV SCH ×3 (10:35→23:42)
[2016-09-23] MEDS ORDERED: IV FLUID CONTINUATION 800 ML IV ONE (12:26)
[2016-09-23] MEDS ORDERED: LIDOCAINE 1% INJ 10MG/ML (20 ML MDV) ONE (12:31)
[2016-09-23] MEDS ORDERED: PROPOFOL 10 MG/ML 20 ML VIAL IV ONE (12:31)
--- NOTE | 2016-09-23 12:42 | P.PCN ---
Date of Procedure: 09/23/16 Preoperative Diagnosis: Postoperative Diagnosis: Procedure(s) Performed: BRIEF HISTORY: Patient is a 71-year-old, pleasant, white male, with history of CVA in the past was a PEG tube placement presently the hospital with acute upper GI bleed. Patient is a poor historian. Initial hemoglobin was 11 and dropped to 10.5 g/dL. He scheduled for an upper endoscopy to evaluate further. PROCEDURE PERFORMED: Esophagogastroduodenoscopy. PREOPERATIVE DIAGNOSIS: Upper GI bleed. IV sedation per anesthesia. PROCEDURE: After informed consent was obtained, the patient was brought into the endoscopy unit. IV sedation was administered by Anesthesia under continuous monitoring. Initially the Olympus GIF-140 video endoscope was inserted into the mouth. Esophagus intubated without any difficulty. It was gradually advanced into the stomach and duodenum and carefully examined. The bulb and the second part of the duodenum appeared normal. The scope at this time was withdrawn to the stomach, adequately insufflated with air, and upon careful examination, mucosa of the antrum, body, cardia and the fundus appeared normal. The internal bumper of the PEG tube appeared to be in good position and there was no erosions or ulcerations seen in that area. The scope was then withdrawn into the esophagus. The GE junction was located at 39 cm from the incisors. Small hiatal hernia noted. The esophagus appeared normal. There were no erosions or ulcerations seen and the patient tolerated the procedure well. IMPRESSION: 1. No evidence of active upper GI bleed 2. Small hiatal hernia seen. 3, Internal bumper of the PEG tube appears to be in good position and no ulcerations seen and that area RECOMMENDATIONS: The findings of this examination were discussed with the patient. At this time the tube feeds can be resumed as before. Implants: Indications for Procedure: Operative Findings: Description of Procedure:
[2016-09-23] MEDS: hydrALAZINE HCL 20 MG/ML 1 ML VIAL IVP PRN (22:31)
[2016-09-23] MEDS: METOPROLOL TARTRATE 50 MG TAB PO SCH (22:32)
--- NOTE | 2016-09-23 23:41 | P.PN ---
Subjective Principal diagnosis: Hematemesis This is a 71-year-old male with a history of CVA with left-sided weakness, dysphagia with PEG tube and history of lung cancer status post right thoracotomy ,who is brought in for evaluation for blood in his emesis. Is unclear whether was dark red bright red or black colored. Patient appears be weak and pale per paramedics. He is found have a blood pressure 90/56 no other reported this time is available. Patient's hemoglobin is fairly stable. Denied a complaints of cough or sputum production. No fever no chills. No recent illnesses. Patient does have history of hypertension and is on 2 blood pressure medications which are held due to hypotension. GI was consulted for further evaluation. On 09/22/2016. Patient denied any further episodes of hematemesis. Hemoglobin dropped to 11.1 today. GI is planning for endoscopy tomorrow. No complaints chest pain or short of breath. He is a poor historian. Objective - Vital Signs Vital signs: Vital Signs Temp 98.7 F 09/22/16 15:00 Pulse 111 H 09/22/16 15:59 Resp 18 09/22/16 15:59 BP 178/81 09/22/16 15:00 Pulse Ox 100 09/22/16 15:00 Intake & Output 09/22/16 09/22/16 09/23/16 06:59 18:59 06:59 Intake Total 480 Balance 480 Weight 52.5 kg Intake: IV 480 Sodium Chloride 0.9% 1, 480 000 ml @ 125 mls/hr IV . Q8H [facility] Rx#:[id number] Other: Voiding Method Incontinent Incontinent # Voids 2 # Bowel Movements 1 - Exam Patient is lying in the bed comfortably, no acute distress, awake alert and oriented.. HEENT: Normocephalic. Neck is supple. Pupils reactive. Nostrils clear. Oral cavity is moist. Ears reveal no drainage. Neck reveals no JVD, carotid bruits, or thyromegaly. CHEST EXAMINATION: Trachea is central. Symmetrical expansion. Lung will clear to auscultation and percussion. CARDIAC: Normal S1, S2 with no gallops. No murmurs ABDOMEN: Soft. Bowel sounds normal. No organomegaly. No abdominal bruits. Nontender. PEG tube site clean and no signs of infection Extremities reveal no edema. No clubbing or cyanosis Neurologically awake, alert, oriented x3 . Left-sided weakness. Patient does have dysarthria Skin: no rash or skin lesions Musculoskeletal: no joint swelling or deformity. - Labs CBC & Chem 7: 09/22/16 08:06 09/22/16 08:06 Labs: Abnormal Lab Results - Last 24 Hours (Table) 09/22/16 09/22/16 Range/Units 08:06 08:06 RBC 4.07 L (4.30-5.90) m/uL Hgb 11.1 L (13.0-17.5) gm/dL Hct 35.1 L (39.0-53.0) % RDW 17.5 H (11.5-15.5) % Lymphocytes # 0.9 L (1.0-4.8) k/uL BUN 44 H (9-20) mg/dL Creatinine 1.60 H (0.66-1.25) mg/dL Glucose 118 H (74-99) mg/dL TIBC 256 L (261-462) ug/dL Assessment and Plan Plan: #1 hematemesis. Possible GI bleed upper. Plan for endoscopy tomorrow #2 history of lung cancer status post right thoracotomy and lobectomy. #3 history of CVA with left-sided residual weakness and dysarthria and dysphagia #4 GERD, hypertension, history of smoking. 5 hypertension. Hold blood pressure medications. Plan: Patient will be continued on IV hydration and hold blood pressure medications. Continue to monitor hemoglobin. Normal iron profile. GI is planning for endoscopy tomorrow.. Further recommendations based on the clinical course.
--- NOTE | 2016-09-23 23:45 | P.PN ---
Subjective Principal diagnosis: Hematemesis This is a 71-year-old male with a history of CVA with left-sided weakness, dysphagia with PEG tube and history of lung cancer status post right thoracotomy ,who is brought in for evaluation for blood in his emesis. Is unclear whether was dark red bright red or black colored. Patient appears be weak and pale per paramedics. He is found have a blood pressure 90/56 no other reported this time is available. Patient's hemoglobin is fairly stable. Denied a complaints of cough or sputum production. No fever no chills. No recent illnesses. Patient does have history of hypertension and is on 2 blood pressure medications which are held due to hypotension. GI was consulted for further evaluation. On 09/22/2016. Patient denied any further episodes of hematemesis. Hemoglobin dropped to 11.1 today. GI is planning for endoscopy tomorrow. No complaints chest pain or short of breath. He is a poor historian. 09/23/2016 Patient had EGD done today showed no evidence of bleeding. Small hiatal hernia. PEG tube bumper inside showed normal station no bleeding. No fever no chills. Blood pressure is stable. Started back on PEG tube feeding. No acute overnight issues. Objective - Vital Signs Vital signs: Vital Signs Temp 96.7 F L 09/23/16 15:00 Pulse 129 H 09/23/16 15:00 Resp 18 09/23/16 15:00 BP 166/96 09/23/16 16:37 Pulse Ox 96 09/23/16 15:00 Intake & Output 09/23/16 09/23/16 09/24/16 06:59 18:59 06:59 Intake Total 100 Balance 100 Weight 50 kg 50 kg Intake: IV 100 Other: Voiding Method Incontinent Incontinent # Voids 1 - Exam Patient is lying in the bed comfortably, no acute distress, awake alert and oriented.. HEENT: Normocephalic. Neck is supple. Pupils reactive. Nostrils clear. Oral cavity is moist. Ears reveal no drainage. Neck reveals no JVD, carotid bruits, or thyromegaly. CHEST EXAMINATION: Trachea is central. Symmetrical expansion. Lung will clear to auscultation and percussion. CARDIAC: Normal S1, S2 with no gallops. No murmurs ABDOMEN: Soft. Bowel sounds normal. No organomegaly. No abdominal bruits. Nontender. PEG tube site clean and no signs of infection Extremities reveal no edema. No clubbing or cyanosis Neurologically awake, alert, oriented x3 . Left-sided weakness. Patient does have dysarthria Skin: no rash or skin lesions Musculoskeletal: no joint swelling or deformity. - Labs CBC & Chem 7: 09/22/16 08:06 09/22/16 08:06 Assessment and Plan Plan: #1 hematemesis. Possible GI bleed upper. Status post EGD showed no evidence of bleeding #2 history of lung cancer status post right thoracotomy and lobectomy. #3 history of CVA with left-sided residual weakness and dysarthria and dysphagia #4 GERD, hypertension, history of smoking. #5 hypertension. Start her back on blood pressure medications. Hypotension improved Plan: Patient will be continued on blood pressure medications. Continue to monitor hemoglobin. Normal iron profile. Anticipate discharged to [facility]CF tomorrow. Further recommendations based on the clinical course.
[2016-09-24] MEDS: hydrALAZINE HCL 20 MG/ML 1 ML VIAL IVP PRN (05:43)
[2016-09-24] MEDS: DILTIAZEM CD 180 MG CAP.ER.24H PO SCH (07:46)
[2016-09-24] MEDS: METOPROLOL TARTRATE 50 MG TAB PO SCH ×3 (07:46→21:04)
[2016-09-24] MEDS: HYDROmorphone 1 MG/ML 1 ML SYRINGE IV PRN (07:51)
[2016-09-24] MEDS: PANTOPRAZOLE 40 MG/10 ML VIAL IV SCH ×3 (08:00→20:20)
[2016-09-24] MEDS ORDERED: ONDANSETRON 4 MG TAB PO PRN (11:58)
[2016-09-24] MEDS ORDERED: LOPERAMIDE 2 MG CAP PEG/G-TUBE PRN (11:58)
[2016-09-24] MEDS: HYDROcodone/APAP 5-325MG 1 EACH TAB PO SCH ×3 (12:09→20:13)
--- NOTE | 2016-09-24 16:00 | P.PN ---
Progress Note - Text The patient is a 71-year-old white male, with history of CVA in the past with PEG tube placement was admitted to the hospital with acute upper GI bleed. Initial hemoglobin was 11 and dropped to 10.5 g/dL. He was scheduled for an upper endoscopy yesterday which showed hiatal hernia but otherwise no evidence of bleeding with feeding tube in place. The patient has been tolerating tube feedings with no further bleeding. General appearance: The patient is alert, oriented, in no acute distress. Dysphasic. HET: Head is normocephalic and atraumatic. Pupils are equal and reactive. Oropharynx is clear without lesions. Neck: Supple without lymphadenopathy. Trachea midline. Heart: S1 S2. Regular rate and rhythm. Lungs: No crackles or wheezes are heard. Abdomen: Soft, nontender, nondistended with bowel sounds. PEG tube intact without evidence of blood swelling drainage or erythema. No peritoneal signs. No palpable organomegaly or masses. Extremities: Normal skin color and turgor. No cyanosis, rash, ulceration, clubbing, or edema. Radial and pedal pulses are 2/4 bilaterally. Neurological: No focal deficits. Strength and sensation are grossly intact. Plan: No further intervention. Will F/U as needed.
--- NOTE | 2016-09-25 01:28 | P.PN ---
Subjective Principal diagnosis: Hematemesis This is a 71-year-old male with a history of CVA with left-sided weakness, dysphagia with PEG tube and history of lung cancer status post right thoracotomy ,who is brought in for evaluation for blood in his emesis. Is unclear whether was dark red bright red or black colored. Patient appears be weak and pale per paramedics. He is found have a blood pressure 90/56 no other reported this time is available. Patient's hemoglobin is fairly stable. Denied a complaints of cough or sputum production. No fever no chills. No recent illnesses. Patient does have history of hypertension and is on 2 blood pressure medications which are held due to hypotension. GI was consulted for further evaluation. On 09/22/2016. Patient denied any further episodes of hematemesis. Hemoglobin dropped to 11.1 today. GI is planning for endoscopy tomorrow. No complaints chest pain or short of breath. He is a poor historian. 09/23/2016 Patient had EGD done today showed no evidence of bleeding. Small hiatal hernia. PEG tube bumper inside showed normal station no bleeding. No fever no chills. Blood pressure is stable. Started back on PEG tube feeding. No acute overnight issues. 09/24/2016 Patient is tolerating PEG tube diet. No episodes of hematemesis again. No acute overnight issues. Anticipate transferred to extended care facility on Monday. Objective - Vital Signs Vital signs: Vital Signs Temp 97.0 F L 09/24/16 14:30 Pulse 75 09/24/16 14:30 Resp 18 09/24/16 14:30 BP 141/82 09/24/16 14:30 Pulse Ox 94 L 09/24/16 14:30 Intake & Output 09/24/16 09/24/16 09/25/16 06:59 18:59 06:59 Intake Total 300 Balance 300 Weight 52.5 kg Intake: Oral 300 Other: Voiding Method Incontinent Incontinent # Voids 1 1 - Exam Patient is lying in the bed comfortably, no acute distress, awake alert and oriented.. HEENT: Normocephalic. Neck is supple. Pupils reactive. Nostrils clear. Oral cavity is moist. Ears reveal no drainage. Neck reveals no JVD, carotid bruits, or thyromegaly. CHEST EXAMINATION: Trachea is central. Symmetrical expansion. Lung will clear to auscultation and percussion. CARDIAC: Normal S1, S2 with no gallops. No murmurs ABDOMEN: Soft. Bowel sounds normal. No organomegaly. No abdominal bruits. Nontender. PEG tube site clean and no signs of infection Extremities reveal no edema. No clubbing or cyanosis Neurologically awake, alert, oriented x3 . Left-sided weakness. Patient does have dysarthria Skin: no rash or skin lesions Musculoskeletal: no joint swelling or deformity. - Labs CBC & Chem 7: 09/22/16 08:06 09/22/16 08:06 Assessment and Plan Plan: #1 hematemesis. Possible GI bleed upper. Status post EGD showed no evidence of bleeding #2 history of lung cancer status post right thoracotomy and lobectomy. #3 history of CVA with left-sided residual weakness and dysarthria and dysphagia #4 GERD, hypertension, history of smoking. #5 hypertension. Start her back on blood pressure medications. Hypotension improved Plan: Patient will be continued on blood pressure medications. Continue to monitor hemoglobin. Normal iron profile. Anticipate discharged to [facility] tomorrow. Further recommendations based on the clinical course.
[2016-09-25] MEDS: HYDROcodone/APAP 5-325MG 1 EACH TAB PO SCH ×7 (04:41→23:53)
[2016-09-25] MEDS: ATORVASTATIN 40 MG TAB PO SCH (08:14)
[2016-09-25] MEDS: PANTOPRAZOLE 40 MG TABLET PO SCH ×2 (08:14→16:59)
[2016-09-25] MEDS: METOPROLOL TARTRATE 50 MG TAB PO SCH ×3 (08:14→21:05)
[2016-09-25] MEDS: DILTIAZEM CD 180 MG CAP.ER.24H PO SCH (08:14)
[2016-09-25] MEDS: SERTRALINE 50 MG TAB PO SCH (08:14)
[2016-09-25 08:40] LABS: Anisocytosis Slight; Basophils % (A) 0 %; CH 28.5; Eosinophils # (A) 0.4 k/uL (0-0.7); Eosinophils % (A) 3 %; HCT 32.9 % (39.0-53.0); HDW 2.79; HGB 10.3 gm/dL (13.0-17.5); Luc # (Auto) 0.18; Luc % (Auto) 2; Lymphocytes # (A) 1.2 k/uL (1.0-4.8); Lymphocytes % (A) 11 %; MCHC 31.2 g/dL (31.0-37.0); MCV 89.8 fL (80.0-100.0); Mean Platelet Volume 7.7; Monocytes # (A) 0.6 k/uL (0-1.0); Monocytes % (A) 6 %; Neutrophils # (A) 8.6 k/uL (1.3-7.7); Neutrophils % (A) 78 %; RBC 3.67 m/uL (4.30-5.90); RDW 18.1 % (11.5-15.5); WBC (Perox) 11.39
[2016-09-25 08:44] LABS: Calcium 8.9 mg/dL (8.4-10.2); Potassium 3.7 mmol/L (3.5-5.1)
[2016-09-25] MEDS ORDERED: NON-FORMULARY DRUG (Omeprazole [Omeprazole] 20 MG) PO SCH (09:00)
[2016-09-25] MEDS: THIAMINE 100 MG TAB PO SCH (12:08)
--- NOTE | 2016-09-26 01:31 | P.PN ---
Subjective Principal diagnosis: Hematemesis This is a 71-year-old male with a history of CVA with left-sided weakness, dysphagia with PEG tube and history of lung cancer status post right thoracotomy ,who is brought in for evaluation for blood in his emesis. Is unclear whether was dark red bright red or black colored. Patient appears be weak and pale per paramedics. He is found have a blood pressure 90/56 no other reported this time is available. Patient's hemoglobin is fairly stable. Denied a complaints of cough or sputum production. No fever no chills. No recent illnesses. Patient does have history of hypertension and is on 2 blood pressure medications which are held due to hypotension. GI was consulted for further evaluation. On 09/22/2016. Patient denied any further episodes of hematemesis. Hemoglobin dropped to 11.1 today. GI is planning for endoscopy tomorrow. No complaints chest pain or short of breath. He is a poor historian. 09/23/2016 Patient had EGD done today showed no evidence of bleeding. Small hiatal hernia. PEG tube bumper inside showed normal station no bleeding. No fever no chills. Blood pressure is stable. Started back on PEG tube feeding. No acute overnight issues. 09/24/2016 Patient is tolerating PEG tube diet. No episodes of hematemesis again. No acute overnight issues. Anticipate transferred to extended care facility on Monday. 09/25/2016. Patient denied any new complaints. Hemoglobin dropped to 10.3 today. Anticipate discharged to extended care facility tomorrow Objective - Vital Signs Vital signs: Vital Signs Temp 97.0 F L 09/25/16 14:07 Pulse 70 09/25/16 14:07 Resp 18 09/25/16 14:07 BP 146/72 09/25/16 14:07 Pulse Ox 92 L 09/25/16 14:07 Intake & Output 09/25/16 09/25/16 09/26/16 06:59 18:59 06:59 Intake Total 300 Balance 300 Weight 55 kg Intake: Oral 300 Other: Voiding Method Incontinent Incontinent # Voids 1 # Bowel Movements 1 - Exam Patient is lying in the bed comfortably, no acute distress, awake alert and oriented.. HEENT: Normocephalic. Neck is supple. Pupils reactive. Nostrils clear. Oral cavity is moist. Ears reveal no drainage. Neck reveals no JVD, carotid bruits, or thyromegaly. CHEST EXAMINATION: Trachea is central. Symmetrical expansion. Lung will clear to auscultation and percussion. CARDIAC: Normal S1, S2 with no gallops. No murmurs ABDOMEN: Soft. Bowel sounds normal. No organomegaly. No abdominal bruits. Nontender. PEG tube site clean and no signs of infection Extremities reveal no edema. No clubbing or cyanosis Neurologically awake, alert, oriented x3 . Left-sided weakness. Patient does have dysarthria Skin: no rash or skin lesions Musculoskeletal: no joint swelling or deformity. - Labs CBC & Chem 7: 09/25/16 07:57 09/25/16 07:57 Labs: Abnormal Lab Results - Last 24 Hours (Table) 09/25/16 09/25/16 Range/Units 07:57 07:57 WBC 11.0 H (3.8-10.6) k/uL RBC 3.67 L (4.30-5.90) m/uL Hgb 10.3 L (13.0-17.5) gm/dL Hct 32.9 L (39.0-53.0) % RDW 18.1 H (11.5-15.5) % Neutrophils # 8.6 H (1.3-7.7) k/uL Chloride 110 H (98-107) mmol/L BUN 51 H (9-20) mg/dL Creatinine 1.67 H (0.66-1.25) mg/dL Glucose 117 H (74-99) mg/dL Assessment and Plan Plan: #1 hematemesis. Possible GI bleed upper. Status post EGD showed no evidence of bleeding . Monitor H&H #2 history of lung cancer status post right thoracotomy and lobectomy. #3 history of CVA with left-sided residual weakness and dysarthria and dysphagia. Continue with PEG tube feeding #4 GERD, hypertension, history of smoking. #5 hypertension. Started back on blood pressure medications. Hypotension improved Plan: Patient will be continued on blood pressure medications. Continue to monitor hemoglobin. Normal iron profile. Anticipate discharged to [facility] tomorrow with her hemoglobin is stable.. Further recommendations based on the clinical course.
[2016-09-26] MEDS: HYDROcodone/APAP 5-325MG 1 EACH TAB PO SCH ×4 (04:22→17:01)
[2016-09-26] MEDS: SODIUM CHLORIDE 0.45% 1,000 ML IV SCH ×2 (04:32→16:22)
[2016-09-26 08:12] LABS: Anisocytosis Slight; Basophils % (A) 0 %; CH 28.6; CHCM 32.3; Eosinophils # (A) 0.3 k/uL (0-0.7); Eosinophils % (A) 3 %; HCT 30.4 % (39.0-53.0); HDW 2.84; HGB 9.6 gm/dL (13.0-17.5); Luc % (Auto) 2; Lymphocytes # (A) 1.1 k/uL (1.0-4.8); Lymphocytes % (A) 13 %; MCH 28.2 pg (25.0-35.0); MCHC 31.6 g/dL (31.0-37.0); MCV 89.2 fL (80.0-100.0); Mean Platelet Volume 7.6; Monocytes # (A) 0.5 k/uL (0-1.0); Monocytes % (A) 6 %; Neutrophils # (A) 6.1 k/uL (1.3-7.7); Neutrophils % (A) 75 %; RDW 17.9 % (11.5-15.5); WBC 8.2 k/uL (3.8-10.6)
[2016-09-26] MEDS: PANTOPRAZOLE 40 MG TABLET PO SCH ×3 (08:20→18:07)
[2016-09-26] MEDS: ATORVASTATIN 40 MG TAB PO SCH ×2 (08:20→10:37)
[2016-09-26] MEDS: METOPROLOL TARTRATE 50 MG TAB PO SCH ×3 (08:20→13:45)
[2016-09-26] MEDS: SERTRALINE 50 MG TAB PO SCH ×2 (08:20→10:37)
[2016-09-26] MEDS: DILTIAZEM CD 180 MG CAP.ER.24H PO SCH ×2 (08:20→10:37)
[2016-09-26 08:27] LABS: Calcium 8.4 mg/dL (8.4-10.2)
--- NOTE | 2016-09-26 10:02 | CDI ---
In responding to this query, please exercise your independent professional judgment. The [facility] Coding Staff and Clinical Documentation Specialists appreciate your assistance in clarifying documentation, maintaining compliance with coding guidelines, accurately documenting patients condition and capturing severity of illness. The fact that a question is asked does not imply that any particular answer is desired or expected. Communication forms are a method of clarifying documentation and are not made part of the Legal Health Record. Thank you in advance for your clarification. Last Revision, December 2014 Isaiah Vaca [address] [place] [address] Documentation Clarification Form Date: 09/26/2016 9:47:00 AM From: Deann Taylor Admit Date: 09/21/2016 3:13:00 PM Patient Name: Nathan Pond V Visit Number: [id number] Dr. Roxanna Brar History/Risk Factors: Hx of right lung CA s/p thoracotomy with lobectomy, PEG tube with tube feeds, Hx of CVA with residual left sided weakness, dysarthria and dysphagia Clinical Indicators: 09/22 GI Consult: "His overall appearance is cachectic with a BMI of 19, 52 kg. Prior to lung surgery patient was residing with his daughter drink a half a pint of whiskey daily. Questionable history of cocaine abuse in the past. Labs: Albumin/ Total Protein: 3.8/7.6 Current BMI: 21 Insufficient energy intake: 09/21 H&P: blood in emesis, weak and pale per paramedics. Hx of CVA with residual dysarthria and dysphagia." Loss of muscle mass: Dietary Consult: Stage 2 pressure ulcer reduced interosseous muscle, sunken orbitals." Decreased hand qc analyst strength: Hx CVA with residual l sided weakness Treatment: Dietary Consult: Completed Tube Feeding: Vital 1. @ 55 cc/hr with 70 cc water flushes Q 4 hrs Lab monitoring: am Daily In your professional opinion, can you please clarify if these findings signify one of the following conditions? Mild Protein-Calorie Malnutrition Moderate Protein-Calorie Malnutrition Severe Protein-Calorie Malnutrition Other condition, please specify Unable to determine Please document in your progress notes and discharge summary in order to capture severity of illness and risk of mortality. Include clinical findings that support your diagnosis. FYI: Press F11 to launch patient chart. Place X here if this finding has no clinical significance, is not applicable or if you are not able to provide any additional documentation. MTDD
--- NOTE | 2016-09-26 10:07 | CDI ---
In responding to this query, please exercise your independent professional judgment. The [facility] Coding Staff and Clinical Documentation Specialists appreciate your assistance in clarifying documentation, maintaining compliance with coding guidelines, accurately documenting patients condition and capturing severity of illness. The fact that a question is asked does not imply that any particular answer is desired or expected. Communication forms are a method of clarifying documentation and are not made part of the Legal Health Record. Thank you in advance for your clarification. Last Revision, December 2014 Isaiah Vaca [address] [place] [address] Documentation Clarification Form Date: 09/26/2016 10:02:00 AM From: Deann Taylor RN, CCDS Admit Date: 09/21/2016 3:13:00 PM Patient Name: Nathan Pond V Visit Number: [id number] Dr. Roxanna Brar Please clarify significance of Lab findings if known. Patient history/risk factors: Lung CA s/p lobectomy Clinical Indicators: Chief complaint of Upper GIB with hematemesis. Hemoglobin: 12.5/12.1/11.1/10.3/9.6 Hematocrit: 36.8/36.2/35.1/32.9/30.4 Treatment: Labs AM Daily EGD In order to capture the severity of condition, please clarify the type of anemia and etiology if known: Acute blood loss anemia Acute on chronic blood loss anemia Chronic blood loss anemia Iron deficiency anemia Hemolytic anemia Drug induced anemia Anemia due to malignancy Nutritional anemia Unable to determine Other, please specify Please document in your progress notes and discharge summary in order to capture severity of illness and risk of mortality. Include clinical findings that support your diagnosis. FYI: Press F11 to launch patient chart. Place X here if this finding has no clinical significance, is not applicable or if you are not able to provide any additional documentation. MTDD
--- NOTE | 2016-09-26 10:19 | CDI ---
In responding to this query, please exercise your independent professional judgment. The [facility] Coding Staff and Clinical Documentation Specialists appreciate your assistance in clarifying documentation, maintaining compliance with coding guidelines, accurately documenting patients condition and capturing severity of illness. The fact that a question is asked does not imply that any particular answer is desired or expected. Communication forms are a method of clarifying documentation and are not made part of the Legal Health Record. Thank you in advance for your clarification. Last Revision, December 2014 Isaiah Vaca [address] [place] [address] Documentation Clarification Form Date: 09/26/2016 10:10:00 AM From: Deann Taylor RN, CCDS Admit Date: 09/21/2016 3:13:00 PM Patient Name: Nathan Pond V Visit Number: [id number] Dr. Roxanna Brar Please clarify documentation provided in EC diagnosis of "renal insufficiency" and significance abnormal lab values. History/Risk Factors: Lung ca w thoracotomy and r lobectomy, GIB with bloody emesis this admission, hx of ETOH Clinical Indicators: Patient presents with a BUN: 44/51/48 CR: 1.6/1.67/1.59 GFR: 43/41/43 6/29/17 Patients baseline BUN/CR/GFR: 35/1.04/>60 Treatment: IVF: 0.9% NS @ 125, followed by 0.45% NS 2 75 cc/hr Apresoline 10 mg IVP Q 6 hrs PRN In order to capture the severity of condition, please clarify if the condition signifies: Acute renal failure Please specify (if known): Cortical, Medullary, or Tubular Necrosis? Acute kidney injury Acute on chronic renal failure Chronic renal failure, please stage Chronic kidney disease (CKD) and please stage Stage 1 GFR >90 Stage 2 GFR 60-89 Stage 3 GFR 30-59 Stage 4 GFR 15-29 Stage 5 GFR <15 ESRD Unable to determine Other, specify Please document in your progress notes and discharge summary in order to capture severity of illness and risk of mortality. Include clinical findings that support your diagnosis. FYI: Press F11 to launch patient chart. Place X here if this finding has no clinical significance, is not applicable or if you are not able to provide any additional documentation. MTDD
--- NOTE | 2016-09-26 13:22 | CDI ---
In responding to this query, please exercise your independent professional judgment. The [facility] Coding Staff and Clinical Documentation Specialists appreciate your assistance in clarifying documentation, maintaining compliance with coding guidelines, accurately documenting patients condition and capturing severity of illness. The fact that a question is asked does not imply that any particular answer is desired or expected. Communication forms are a method of clarifying documentation and are not made part of the Legal Health Record. Thank you in advance for your clarification. Last Revision, December [address] [place] [address] Documentation Clarification Form Date: 09/26/2016 1:13:00 PM From: Deann Taylor RN, CCDS Admit Date: 09/21/2016 3:13:00 PM Patient Name: Nathan Pond V Visit Number: [id number] Dr. Kwame Means pressure ulcer was documented in the Nursing assessments and dietary Consult. History/Risk Factors: Lung CA w lobectomy, GIB bleed Clinical Indicators: Lung CA w lobectomy, GIB bleed Location & Wound description: BMI 19 Nursing Documentation: Left buttock Wound Stage 2 pressure Ulcer Treatment: Dietary evaluated for Peg tube feedings Elements for accurate and compliant documentation of an ulcer: * The location/laterality of the ulcer * Etiology (decubitus/pressure, diabetic, PVD) * Stage I-IV, Unstageable, Suspected Deep Tissue Injury (To the deepest stage) * If the ulcer was present at admission (POA) or occurred after admission In your professional opinion, can you please clarify the diagnosis, location, laterality and whether present on admission (POA): Stage 1 Pressure/Decubitus Ulcer (intact skin, non-blanching redness of local area) Stage 2 Pressure/Decubitus Ulcer (Partial thickness, loss of dermis, pink wound bed) Stage 3 Pressure/Decubitus Ulcer (Full thickness tissue loss) Stage 4 Pressure/Decubitus Ulcer (Full thickness tissue loss with exposed bone, tendon, or muscle. May have slough or eschar present) Unstageable Unable to determine Other condition, please specify *Please indicate cause (if known). Please document in your progress notes and discharge summary in order to capture severity of illness and risk of mortality. Include clinical findings that support your diagnosis. FYI: Press F11 to launch patient chart. Place X here if this finding has no clinical significance, is not applicable or if you are not able to provide any additional documentation. MTDD
[2016-09-26] MEDS: THIAMINE 100 MG TAB PO SCH ×2 (13:48→13:49)
[2016-09-26] MEDS: hydrALAZINE HCL 20 MG/ML 1 ML VIAL IVP PRN (14:23)
[2016-09-26] MEDS: ONDANSETRON 4 MG/2 ML VIAL IVP PRN (14:29)
[2016-09-26] MEDS ORDERED: cloNIDine 0.1 MG/24HR PATCH 1 PATCH PATCH TRANSDERM SCH (21:15)
[2016-09-26 22:28] LABS: Glucose,Whole Blood 126 mg/dL (75-99)
--- NOTE | 2016-09-26 23:57 | CT ---
EXAM: CT Head Without Intravenous Contrast CLINICAL HISTORY: Reason: Mental status change TECHNIQUE: Axial computed tomography images of the head/brain without intravenous contrast. CTDI is 60.30 mGy and DLP is 1090.40 mGy-cm. This CT exam was performed using one or more of the following dose reduction techniques: automated exposure control, adjustment of the mA and/or kV according to patient size, and/or use of iterative reconstruction technique. COMPARISON: 05/20/14 FINDINGS: Brain: Periventricular white matter hypodensities indicating chronic small vessel ischemic changes. No hemorrhage. Ventricles: Unremarkable. No ventriculomegaly. Bones/joints: Unremarkable. No acute fracture. Soft tissues: Unremarkable. Sinuses: Unremarkable as visualized. No acute sinusitis. Mastoid air cells: Unremarkable as visualized. No mastoid effusion. Other findings: Generalized atrophy. IMPRESSION: No acute findings. Stable exam.
[2016-09-27] MEDS: HYDROcodone/APAP 5-325MG 1 EACH TAB PO SCH ×7 (01:03→21:58)
[2016-09-27] MEDS: DIAZEPAM 2 MG TAB PO SCH ×4 (01:03→21:58)
[2016-09-27] MEDS: METOPROLOL TARTRATE 50 MG TAB PO SCH ×4 (01:50→21:57)
[2016-09-27] MEDS ORDERED: cloNIDine 0.2 MG/24HR PATCH 1 PATCH PATCH TRANSDERM SCH (08:30)
[2016-09-27] MEDS: PANTOPRAZOLE 40 MG TABLET PO SCH ×2 (08:57→15:39)
[2016-09-27] MEDS: ATORVASTATIN 40 MG TAB PO SCH (08:59)
[2016-09-27] MEDS: DILTIAZEM CD 180 MG CAP.ER.24H PO SCH (09:00)
[2016-09-27] MEDS: SERTRALINE 50 MG TAB PO SCH (09:01)
[2016-09-27 11:15] VITALS: BMI 20.9
[2016-09-27] MEDS: THIAMINE 100 MG TAB PO SCH (13:03)
--- NOTE | 2016-09-27 16:23 | P.PN ---
<Zainab Rivera - Last Filed: 09/27/16 15:56> Progress Note - Text DATE OF SERVICE: 09/26/2016 PRESENTING COMPLAINT: Vomiting blood INTERVAL HISTORY: 71-year-old male with a history of CVA left-sided weakness dysphagia and PEG tube brought in for bloody emesis. 09/26/2016: Patient seen in follow-up, no acute overnight events. Patient complains of nausea, vomiting and abdominal tenderness. Very restless in the bed. Patient is spitting up clear sputum. No emesis noted. Patient has increasing restlessness with a known alcohol use history, beta fatuma and Valium prescribed to help alleviate the symptoms of potential withdrawal REVIEW OF SYSTEMS: Done for constitutional ,cardiovascular, GI, pulmonary with relevant findings as above. CURRENT MEDICATIONS [place], Lipitor, Catapres, Valium, and Cardizem, Apresoline, Dilaudid, Imodium, metoprolol. PHYSICAL EXAM VITAL SIGNS: Temperature 98.8, pulse 73, respiratory rate 18, blood pressure 177/90, oxygen saturation 95% on room air. GENERAL APPEARANCE: Lying in bed, restless. EYES: Pupils equal. Conjunctiva normal. NECK: JVD not raised. Mass not palpable. RESPIRATORY: Respiratory effort normal. Lungs diminished to auscultation. CARDIOVASCULAR: First and second sounds normal. No edema. ABDOMEN: Soft. Liver and spleen not palpable. No tenderness. No mass palpable. PEG tube in place, tube feeding infusing as ordered PSYCHIATRY: Alert and oriented x2. Mood and affect irritable. INTEGUMENT: Stage II decubitus ulcer left buttock INVESTIGATIONS: White blood cell count 8.2, hemoglobin 9.6, sodium 143, potassium 4.0, BUN 48, creatinine 1.59, Accu-Cheks noted. ASSESSMENT: -Hematemesis, negative for GI bleed upper - history of lung cancer status post right thoracotomy and lobectomy. 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 -Chronic alcohol dependence, patient admits to a half pint of hard liquor a day -Stage II decubitus ulcer, left buttock, present on admission -Medical debility secondary to multiple chronic medical comorbidities PLAN: No further hematemesis, EGD negative for upper GI bleed. We'll continue tube feedings at 55 mL an hour. Continue beta fatuma and Valium to alleviate possible delirium tremens. Continue to provide local wound care to decubitus ulcer on left buttock. Discharge planning within the next 24-48 hours. Defer discussion of treatment plan until family at the bedside. We'll continue to follow closely. PROFESSOR OF GEOLOGY statement: Patient was seen and examined by nurse practitioner Zainab Rivera and all elements of the case discussed with attending Dr. Albert <Kwame Albert - Last Filed: 09/27/16 22:48> Progress Note - Text Date of service 09/26/2016 Attending note: This patient was seen and examined by me. I discussed with my nurse practitioner Ms. Rivera. Patient admitted with possible hematemesis, had an unremarkable EGD. Blood pressure running on the higher side and patient refuses medication is in the morning. On examination: Lungs-decreased breath sounds, abdomen-soft, PEG tube in place Assessment and plan: Hematemesis with a negative EGD, possible gastritis Uncontrolled hypertension-will add Catapres patch Chronic alcoholism-we'll add Valium 2 mg 3 times a day Keep a close eye on blood pressure follow
--- NOTE | 2016-09-27 16:33 | P.PN ---
<Zainab Rivera - Last Filed: 09/27/16 16:24> Progress Note - Text DATE OF SERVICE: 09/27/2016 PRESENTING COMPLAINT: Vomiting blood INTERVAL HISTORY: 71-year-old male with a history of CVA left-sided weakness dysphagia and PEG tube brought in for bloody emesis. 09/27/2016: Patient seen in follow-up, patient had increasing confusion overnight with what appeared to be some weakness, patient taken down for head CT with no acute changes noted. Patient is calmer today, able to answer more questions, somewhat slow to respond. Tolerating tube feeding at 55 L an hour, last bowel movement today. Requires assistance for transfers. 09/26/2016: Patient seen in follow-up, no acute overnight events. Patient complains of nausea, vomiting and abdominal tenderness. Very restless in the bed. Patient is spitting up clear sputum. No emesis noted. Patient has increasing restlessness with a known alcohol use history, beta fatuma and Valium prescribed to help alleviate the symptoms of potential withdrawal REVIEW OF SYSTEMS: Done for constitutional ,cardiovascular, GI, pulmonary with relevant findings as above. CURRENT MEDICATIONS [place], Lipitor, Catapres, Valium, and Cardizem, Apresoline, Dilaudid, Imodium, metoprolol. PHYSICAL EXAM VITAL SIGNS: Temperature 98.8, pulse 73, respiratory rate 18, blood pressure 177/90, oxygen saturation 95% on room air. GENERAL APPEARANCE: Lying in bed, appears comfortable. EYES: Pupils equal. Conjunctiva normal. NECK: JVD not raised. Mass not palpable. RESPIRATORY: Respiratory effort normal. Lungs diminished to auscultation. CARDIOVASCULAR: First and second sounds normal. No edema. ABDOMEN: Soft. Liver and spleen not palpable. No tenderness. No mass palpable. PEG tube in place, tube feeding infusing as ordered PSYCHIATRY: Alert and oriented x2. Mood and affect irritable. INTEGUMENT: Stage II decubitus ulcer left buttock, localized redness to surrounding skin. INVESTIGATIONS: Accu-Cheks noted Head CT: No acute findings ASSESSMENT: -Hematemesis, negative for GI bleed upper - history of lung cancer status post right thoracotomy and lobectomy. 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 -Chronic alcohol dependence, patient admits to a half pint of hard liquor a day -Stage II decubitus ulcer, left buttock, present on admission -Medical debility secondary to multiple chronic medical comorbidities PLAN: No further hematemesis, EGD negative for upper GI bleed. We'll continue tube feedings at 55 mL an hour. Continue beta fatuma and Valium and titrate back daily. Continue to provide local wound care to decubitus ulcer on left buttock. Discharge planning within the next 24-48 hours. Plan of care discussed with the patient at the bedside. [facility] [place]. We'll continue to follow closely. PUG MILL OPERATOR HELPER statement: Patient was seen and examined by nurse practitioner Zainab Rivera and all elements of the case discussed with attending Dr. Albert <Kwame Albert - Last Filed: 09/27/16 22:50> Progress Note - Text Date of service-09/27/2016 Attending note: This patient was seen and examined by me. I discussed by nurse practitioner Ms. Rivera. Patient blood pressure is better controlled. Patient is agitated today. Tolerating tube feeding On examination: Lungs-decreased breath sounds, psych-answering questions, abdomen soft nontender Assessment and plan: Essential hypertension better controlled-continue current medications. Keep the patient on current dose of Valium. Discussed with the patient
--- NOTE | 2016-09-27 18:00 | PN ---
DATE OF SERVICE: 09/26/2016 PRESENTING COMPLAINT: High blood pressure. INTERVAL HISTORY: This is a patient with a chronic PEG tube. He presented with what appeared to be vomiting blood; however, bringing up some dark blood. EGD was unremarkable. Tube feeding has been started. Patient refused his oral medications earlier today and his blood pressure really went high. Did get his afternoon medications. Patient, however, is agitated this afternoon. I saw him. Patient does smoke at home and still drinks whiskey at home. Review of systems done for constitutional, cardiovascular, GI, pulmonary; relevant findings as above. Current medications are reviewed. On examination, temperature 96.1, pulse 72, respiration 18, blood pressure 181/ 99, pulse ox 98% on room air. GENERAL APPEARANCE: Sitting up. Tired-appearing but somewhat restless. EYES: Pupils equal. Conjunctivae normal. NECK: JVD not raised. Mass not palpable. RESPIRATORY: Effort normal. LUNGS: Diminished breath sounds. CARDIOVASCULAR: First and second sounds normal. ABDOMEN: Soft. Mild tenderness. No guarding or rigidity. Liver and spleen not palpable. PSYCHIATRY: Awake. Answering questions. INVESTIGATIONS: White count 8.2. Hemoglobin 9.6. Potassium 4.0. BUN 48, creatinine 1.59. ASSESSMENT: 1. Acute gastrointestinal bleed. EGD unremarkable. Could have been some gastritis. 2. Emphysema in a current smoker. 3. Essential hypertension with urgency. Patient did not take his medications earlier today. 4. Gastroesophageal reflux disease. 5. 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 6. Left-sided weakness from prior stroke. 7. Chronic nicotine dependence. Patient is a smoker. 8. Chronic alcoholism. PLAN: Control blood pressure. Will add the Catapres patch 0.1 and also give Valium 2 mg 3 times a day in case he has an element of withdrawal. Told the nurse to give the medication through the PEG tube if he does not take it by mouth. Advance diet as tolerated. Will follow. MTDD
[2016-09-28] MEDS: HYDROcodone/APAP 5-325MG 1 EACH TAB PO SCH ×5 (01:19→16:49)
[2016-09-28 08:36] LABS: Anisocytosis Slight; Basophils % (A) 0 %; CH 28.9; CHCM 32.7; Eosinophils # (A) 0.2 k/uL (0-0.7); Eosinophils % (A) 3 %; HCT 32.6 % (39.0-53.0); HGB 10.3 gm/dL (13.0-17.5); Luc % (Auto) 3; Lymphocytes # (A) 0.9 k/uL (1.0-4.8); Lymphocytes % (A) 14 %; MCH 28.1 pg (25.0-35.0); MCHC 31.5 g/dL (31.0-37.0); MCV 89.3 fL (80.0-100.0); Mean Platelet Volume 7.6; Monocytes # (A) 0.4 k/uL (0-1.0); Monocytes % (A) 6 %; Neutrophils # (A) 4.9 k/uL (1.3-7.7); Neutrophils % (A) 74 %; RBC 3.65 m/uL (4.30-5.90); RDW 18.1 % (11.5-15.5); WBC 6.6 k/uL (3.8-10.6); WBC (Perox) 7.22
[2016-09-28 08:45] LABS: Anion Gap 9 mmol/L; Blood Urea Nitrogen 43 mg/dL (9-20); Calcium 8.9 mg/dL (8.4-10.2); Carbon Dioxide 23 mmol/L (22-30); Chloride 108 mmol/L (98-107); Glucose 87 mg/dL (74-99); Non-African American GFR(MDRD) 50 (>60 ml/min/1.73 sqM); Sodium 140 mmol/L (137-145)
[2016-09-28] MEDS ORDERED: DIAZEPAM 2 MG TAB PO SCH (09:00)
[2016-09-28] MEDS: PANTOPRAZOLE 40 MG TABLET PO SCH ×2 (09:47→16:53)
[2016-09-28] MEDS: ATORVASTATIN 40 MG TAB PO SCH (09:48)
[2016-09-28] MEDS: SERTRALINE 50 MG TAB PO SCH (09:49)
[2016-09-28] MEDS: METOPROLOL TARTRATE 50 MG TAB PO SCH ×2 (09:49→16:50)
[2016-09-28] MEDS: DILTIAZEM CD 180 MG CAP.ER.24H PO SCH (09:49)
--- NOTE | 2016-09-28 13:18 | P.DS ---
Providers Date of admission: 09/21/16 15:13 Expected date of discharge: 09/28/16 Attending physician: Kwame Albert [facility] care [facility] Course: Final diagnoses: -Hematemesis, possibly from acute gastritis related to alcoholism - history of squamous cell lung cancer status post right upper and middle lobe lobectomy. -left-sided residual paresis and dysarthria and dysphagia from previous stroke -Moderate protein calorie malnutrition, PEG tube in place -Chronic nicotine dependence, patient is a current smoker -Essential hypertension -Gastroesophageal reflux disease. -Chronic alcohol dependence, patient admits to a half pint of hard liquor a day -Stage II decubitus ulcer, left buttock, present on admission -Medical debility secondary to multiple chronic medical comorbidities -Chronic kidney disease stage III from hypertensive nephrosclerosis -Normocytic anemia possibly related to chronic kidney disease and could be nutritional Hospital course: This patient is got a PEG tube for feeding as he does not eat very well presented with what appeared to be maybe hematemesis.. EGD was unremarkable. Patient was tolerating his tube feeding by the time of discharge. Blood pressure was running high it was reasonable by the time of discharge. Currently blood pressures about 160 systolic. Discharge planning more than 35 minutes On examination: Lying in bed comfortable, lungs-decreased breath sounds, psychiatry answering questions, abdomen-soft nontender PEG tube in place Consultation: Dr. Arline Shi from GI Disposition: [facility] [place] CODE STATUS full Patient Condition at Discharge: Stable Plan - Discharge Summary New Discharge Prescriptions: New cloNIDine 0.2 MG/24HR PATCH [Catapres-TTS] 1 patch TRANSDERM Q7D patch Continue Diltiazem HCl [Diltiazem 24Hr ER] 180 mg PO QAM #30 cap.er.24h Omeprazole 20 mg PO QAM #30 capsule. Sertraline HCl [Zoloft] 50 mg PO DAILY Ondansetron HCl [Zofran] 4 mg PO Q8HR PRN PRN Reason: Nausea Phenergan Solution 12.5 mg IM Q6HR PRN PRN Reason: Nausea Metoprolol Tartrate [Lopressor] 50 mg PO TID Loperamide HCl [Loperamide] 3 mg PEG/G-TUBE Q4H PRN PRN Reason: Diarrhea Atorvastatin Calcium [Lipitor] 40 mg PO DAILY Aspirin [Adult Low Dose Aspirin EC] 81 mg PO DAILY Thiamine HCl [Vitamin B-1] 100 mg PO DAILY Hydrocodone/Acetaminophen [[place] 5-325] 1 tab PO Q4HR #14 Discharge Medication List Diltiazem HCl [Diltiazem 24Hr ER] 180 mg PO QAM #30 cap.er.24h 06/20/16 [Rx] Omeprazole 20 mg PO QAM #30 capsule.dr 06/20/16 [Rx] Aspirin [Adult Low Dose Aspirin EC] 81 mg PO DAILY 09/21/16 [History] Atorvastatin Calcium [Lipitor] 40 mg PO DAILY 09/21/16 [History] Loperamide HCl [Loperamide] 3 mg PEG/G-TUBE Q4H PRN 09/21/16 [History] Metoprolol Tartrate [Lopressor] 50 mg PO TID 09/21/16 [History] Ondansetron HCl [Zofran] 4 mg PO Q8HR PRN 09/21/16 [History] Phenergan Solution 12.5 mg IM Q6HR PRN 09/21/16 [History] Sertraline HCl [Zoloft] 50 mg PO DAILY 09/21/16 [History] Thiamine HCl [Vitamin B-1] 100 mg PO DAILY 09/21/16 [History] Hydrocodone/Acetaminophen [[place] 5-325] 1 tab PO Q4HR #14 09/28/16 [Rx] cloNIDine 0.2 MG/24HR PATCH [Catapres-TTS] 1 patch TRANSDERM Q7D patch [Rx] Follow up Appointment(s)/Referral(s): Enoch Weinberg DO [Primary Care Provider] - 1-2 days [facility] [place], [NON-STAFF] - 1 Week Patient Instructions/Handouts: Gastrointestinal Bleeding (DC) Activity/Diet/Wound Care/Special Instructions: Cardiac diet. Peg tube care per facility protocol. Up with assist, fall precautions. Discharge Disposition: TRANSFER TO SNF/ECF
[2016-09-28] MEDS: THIAMINE 100 MG TAB PO SCH (13:42)
[2016-09-28 14:37] VITALS: BP 124/69; PULSE 62; RESP 16; TEMP 96.9
== END 2016-09-28 18:59 | DRG 378 ==
LOC: EC 10:30 → 4MS4W 15:13
PROVIDERS: ADMIT Hospitalist; ATTEND Hospitalist
DX: K29.21 Alcoholic gastritis with bleeding (principal); D62 Acute posthemorrhagic anemia; E44.0 Moderate protein-calorie malnutrition; I69.354 Hemiplegia and hemiparesis following cerebral infarction affecting left non-dominant side; L89.322 Pressure ulcer of left buttock, stage 2; I95.9 Hypotension, unspecified; J43.9 Emphysema, unspecified; N18.3 Chronic kidney disease, stage 3 (moderate); D53.9 Nutritional anemia, unspecified; D63.1 Anemia in chronic kidney disease; I69.922 Dysarthria following unspecified cerebrovascular disease; F10.20 Alcohol dependence, uncomplicated; K44.9 Diaphragmatic hernia without obstruction or gangrene; F17.200 Nicotine dependence, unspecified, uncomplicated; I12.9 Hypertensive chronic kidney disease with stage 1 through stage 4 chronic kidney disease, or unspecified chronic kidney disease; I69.391 Dysphagia following cerebral infarction; K21.0 Gastro-esophageal reflux disease with esophagitis; I16.0 Hypertensive urgency; R32 Unspecified urinary incontinence; R45.1 Restlessness and agitation; Z68.1 Body mass index [BMI] 19.9 or less, adult; Z79.82 Long term (current) use of aspirin; Z79.899 Other long term (current) drug therapy; Z85.118 Personal history of other malignant neoplasm of bronchus and lung; Z93.1 Gastrostomy status
CPT/HCPCS: 36415; 43235; 70450; 74000; 80048; 80053; 82271; 82550; 82553; 83540; 83550; 83735; 84484; 85025; 85027; 85610; 85730; 86850; 86900; 86901; 96361; 96374; 96375; 99285

== ENCOUNTER 2017-05-09 18:00 | Inpatient (IN) | payer MEDICARE, OTHER ==
--- NOTE | 2017-05-09 18:03 | ED ---
General Adult HPI - General Stated complaint: Vomiting Time Seen by Provider: 05/09/17 18:02 - History of Present Illness Initial comments: Patient brought in by EMS from [facility] for coffee-ground emesis that occurred this morning. Patient states he vomited approximately 5 times. Patient was given Zofran in route, states not currently nauseated. Patient denies abdominal pain. Patient denies diarrhea. Denies fevers, chills. Patient does have a history of gastritis with bleeding, esophagitis. Patient has a stroke, has PEG tube in place, however patient states he is able to eat orally. Patient states she did eat lunch and dinner today without any vomiting. Denies blood in stools. Patient does not think she is on any blood pressure medications. No meds list available with paperwork from facility. - Related Data Home Medications Medication Instructions Recorded Confirmed Aspirin [Adult Low Dose Aspirin EC] 81 mg PO DAILY 09/21/16 01/05/17 Atorvastatin Calcium [Lipitor] 40 mg PO DAILY 09/21/16 01/05/17 Ondansetron HCl [Zofran] 4 mg PO Q4H PRN 09/21/16 01/05/17 Phenergan Solution 12.5 mg IM Q6HR PRN 09/21/16 01/05/17 Sertraline HCl [Zoloft] 50 mg PO DAILY 09/21/16 01/05/17 Diltiazem HCl [Diltiazem 24Hr ER] 180 mg PO HS 01/05/17 01/05/17 Losartan Potassium 50 mg PO HS 01/05/17 01/05/17 Magnesium Hydroxide [Milk of 2,400 mg PEG/G-TUBE Q72H PRN 01/05/17 01/05/17 Magnesia] Omeprazole 20 mg PO HS 01/05/17 01/05/17 Previous Rx's Medication Instructions Recorded Hydrocodone/Acetaminophen [[place] 1 tab PO Q4HR #14 tablet 01/09/17 5-325] Labetalol [Trandate] 300 mg PO BID #1 tab 01/09/17 amLODIPine [Norvasc] 5 mg PO DAILY #1 tab 01/09/17 cloNIDine HCL [Catapres] 0.3 mg PO TID #1 tab 01/09/17 Allergies Allergy/AdvReac Type Severity Reaction Status Date / Time No Known Allergies Allergy Verified 05/09/17 19:25 Review of Systems ROS Statement: Those systems with pertinent positive or pertinent negative responses have been documented in the HPI. ROS Other: All systems not noted in ROS Statement are negative. Constitutional: Denies: fever, chills, weakness Eyes: Denies: vision change ENT: Denies: epistaxis, congestion Respiratory: Denies: cough, dyspnea, hemoptysis Cardiovascular: Denies: chest pain, palpitations, dyspnea on exertion, edema, syncope Endocrine: Denies: fatigue Gastrointestinal: Reports: nausea, vomiting, hematemesis. Denies: abdominal pain, diarrhea, constipation, melena, hematochezia Genitourinary: Denies: urgency, dysuria, frequency, hematuria Musculoskeletal: Denies: back pain Skin: Denies: rash, change in color Neurological: Denies: headache, confusion Past Medical History Past Medical History: CVA/TIA, GERD/Reflux, Hypertension Additional Past Medical History / Comment(s): CVA in 1999 with left-sided residual weakness, non-small cell lung cancer status post right thoracotomy, right lower and middle lobectomies. History of Any Multi-Drug Resistant Organisms: None Reported Past Surgical History: No Surgical Hx Reported Additional Past Surgical History / Comment(s): bronchoscopy. Patient has peg tube he says was placed 3 months ago. Past Anesthesia/Blood Transfusion Reactions: No Reported Reaction Additional Past Anesthesia/Blood Transfusion Reaction / Comment(s): unknown anesthesia and family hx Past Psychological History: No Psychological Hx Reported Smoking Status: Former smoker Past Alcohol Use History: Daily Additional Past Alcohol Use History / Comment(s): smoked 50 years and says he quit 2 months ago., states he drinks one drink per day. He lives at [facility] for the last 3-4 months. Past Drug Use History: None Reported - Past Family History Father History Unknown: Yes Mother History Unknown: Yes General Exam - General Exam Comments Initial Comments: Sitting up in bed alert. No acute distress. Conversing normally. Calm, pleasant. Limitations: no limitations General appearance: alert, in no apparent distress Head exam: Present: atraumatic, normocephalic Eye exam: Present: normal appearance, PERRL, EOMI ENT exam: Present: normal exam, normal oropharynx, mucous membranes moist Neck exam: Present: normal inspection Respiratory exam: Present: normal lung sounds bilaterally. Absent: respiratory distress, wheezes, rales Cardiovascular Exam: Present: regular rate, normal rhythm GI/Abdominal exam: Present: soft, other (Abdomen soft nontender. PEG tube left upper quadrant, site appears clean dry intact, no blood in tubing.). Absent: distended, tenderness, guarding, rebound, rigid Extremities exam: Present: normal inspection Back exam: Present: normal inspection Neurological exam: Present: alert, oriented X3, other (Alert GCS 15 oriented to name, place, year. ) Psychiatric exam: Present: normal affect, normal mood Skin exam: Present: warm, dry, intact, normal color. Absent: rash, cyanosis, diaphoretic Course Vital Signs 05/09/17 18:02 Temperature 98.0 F Pulse Rate 72 Respiratory 20 Rate Blood Pressure 141/70 O2 Sat by Pulse 99 Oximetry Medical Decision Making - Medical Decision Making Patient received Zofran prior to arrival Hemoglobin 13.7 BUN/creatinine elevated, likely secondary to dehydration secondary to vomiting, we'll continue IV hydration Patient with no vomiting in the ER. However given patient's history of GI bleed , review of previous records showed patient's on aspirin, will admit to hospital for overnight monitoring, repeat hemoglobin in the morning. Spoke with internal medicine Dr Albert, updated with patient condition results , agrees with admission, request consult to GI GI consult placed Pt updated with results and plan. - Lab Data Result diagrams: 05/09/17 18:10 05/09/17 18:10 Lab Results 05/09/17 05/09/17 05/09/17 Range/Units 18:10 18:10 18:10 WBC 6.4 (3.8-10.6) k/uL RBC 4.89 (4.30-5.90) m/uL Hgb 13.7 (13.0-17.5) gm/dL Hct 40.7 (39.0-53.0) % MCV 83.2 D (80.0-100.0) fL MCH 28.1 (25.0-35.0) pg MCHC 33.7 (31.0-37.0) g/dL RDW 13.5 (11.5-15.5) % Plt Count 273 (150-450) k/uL Neutrophils % 75 % Lymphocytes % 16 % Monocytes % 6 % Eosinophils % 1 % Basophils % 0 % Neutrophils # 4.8 (1.3-7.7) k/uL Lymphocytes # 1.0 (1.0-4.8) k/uL Monocytes # 0.4 (0-1.0) k/uL Eosinophils # 0.1 (0-0.7) k/uL Basophils # 0.0 (0-0.2) k/uL PT 11.3 (9.0-12.0) sec INR 1.2 H (<1.2) APTT 22.8 (22.0-30.0) sec Sodium (137-145) mmol/L Potassium (3.5-5.1) mmol/L Chloride (98-107) mmol/L Carbon Dioxide (22-30) mmol/L Anion Gap mmol/L BUN (9-20) mg/dL Creatinine (0.66-1.25) mg/dL Est GFR (CKD-EPI)AfAm (>60 ml/min/1.73 sqM) Est GFR (CKD-EPI)NonAf (>60 ml/min/1.73 sqM) Glucose (74-99) mg/dL Calcium (8.4-10.2) mg/dL Total Bilirubin (0.2-1.3) mg/dL AST (17-59) U/L ALT (21-72) U/L Alkaline Phosphatase (38-126) U/L Total Protein (6.3-8.2) g/dL Albumin (3.5-5.0) g/dL Lipase (23-300) U/L Blood Type O Positive Blood Type Recheck No Antibody Screen NEGATIVE Spec Expiration Date 05/12/2017 - 230905/09/17 Range/Units 18:10 WBC (3.8-10.6) k/uL RBC (4.30-5.90) m/uL Hgb (13.0-17.5) gm/dL Hct (39.0-53.0) % MCV (80.0-100.0) fL MCH (25.0-35.0) pg MCHC (31.0-37.0) g/dL RDW (11.5-15.5) % Plt Count (150-450) k/uL Neutrophils % % Lymphocytes % % Monocytes % % Eosinophils % % Basophils % % Neutrophils # (1.3-7.7) k/uL Lymphocytes # (1.0-4.8) k/uL Monocytes # (0-1.0) k/uL Eosinophils # (0-0.7) k/uL Basophils # (0-0.2) k/uL PT (9.0-12.0) sec INR (<1.2) APTT (22.0-30.0) sec Sodium 138 (137-145) mmol/L Potassium 4.1 (3.5-5.1) mmol/L Chloride 100 (98-107) mmol/L Carbon Dioxide 27 (22-30) mmol/L Anion Gap 11 mmol/L BUN 42 H (9-20) mg/dL Creatinine 1.56 H (0.66-1.25) mg/dL Est GFR (CKD-EPI)AfAm 50 (>60 ml/min/1.73 sqM) Est GFR (CKD-EPI)NonAf 44 (>60 ml/min/1.73 sqM) Glucose 106 H (74-99) mg/dL Calcium 9.9 (8.4-10.2) mg/dL Total Bilirubin 0.9 (0.2-1.3) mg/dL AST 30 (17-59) U/L ALT 29 (21-72) U/L Alkaline Phosphatase 78 (38-126) U/L Total Protein 6.9 (6.3-8.2) g/dL Albumin 4.0 (3.5-5.0) g/dL Lipase 105 (23-300) U/L Blood Type Blood Type Recheck Antibody Screen Spec Expiration Date Disposition Clinical Impression: Hematemesis Disposition: ADMITTED IP TO THIS [facility] Condition: Good Referrals: Enoch Weinberg DO [Primary Care Provider] - 1-2 days
[2017-05-09] MEDS ORDERED: SODIUM CHLORIDE 0.9% 1,000 ML IV STA (18:14)
[2017-05-09] MEDS ORDERED: PANTOPRAZOLE 40 MG/10 ML VIAL IVP ONE (18:15)
[2017-05-09 18:42] LABS: Basophils % (A) 0 %; Eosinophils # (A) 0.1 k/uL (0-0.7); Eosinophils % (A) 1 %; HCT 40.7 % (39.0-53.0); HGB 13.7 gm/dL (13.0-17.5); Lymphocytes % (A) 16 %; MCH 28.1 pg (25.0-35.0); MCHC 33.7 g/dL (31.0-37.0); Mean Platelet Volume 7.2; Monocytes # (A) 0.4 k/uL (0-1.0); Monocytes % (A) 6 %; Neutrophils # (A) 4.8 k/uL (1.3-7.7); Neutrophils % (A) 75 %; Platelet Count 273 k/uL (150-450); RBC 4.89 m/uL (4.30-5.90); RDW 13.5 % (11.5-15.5); WBC 6.4 k/uL (3.8-10.6)
[2017-05-09 18:46] LABS: MCV 83.2 fL (80.0-100.0)
[2017-05-09 18:52] LABS: Calcium 9.9 mg/dL (8.4-10.2); Potassium 4.1 mmol/L (3.5-5.1); Total Bilirubin 0.9 mg/dL (0.2-1.3); Total Protein 6.9 g/dL (6.3-8.2)
[2017-05-09 19:09] LABS: INR 1.2 (<1.2); Partial Thromboplastin Time 22.8 sec (22.0-30.0); Prothrombin Time 11.3 sec (9.0-12.0)
--- NOTE | 2017-05-09 19:27 | XR ---
EXAMINATION TYPE: XR KUB DATE OF EXAM: 05/09/2017 7:18 PM CLINICAL HISTORY: Hematemesis TECHNIQUE: Single supine KUB image of the abdomen is obtained. COMPARISON: None. FINDINGS: Multiple radiopaque ovoid structures are seen within the right hemicolon, likely ingested p ills. Percutaneous enteric gastric tube is noted within the left para midline upper abdomen overlying the gastric air bubble. Scattered gas is seen in non-distended small bowel loops. Gas and fecal mate rial is seen in non-distended colon. There is no visceromegaly, pneumoperitoneum, or abnormal calcifi cation appreciated. The lung bases are clear and the osseous structures are intact. IMPRESSION: 1. Nonobstructive bowel gas pattern. 2. Percutaneous enteric gastric tube overlies the gastric air bubble, upper really place. 3. Multiple ovoid densities within the ascending colon likely represent ingested pills.
[2017-05-09 21:54] VITALS: BMI 17.9
[2017-05-10] MEDS: PANTOPRAZOLE 40 MG/10 ML VIAL IVP SCH ×3 (06:18→20:21)
[2017-05-10 07:54] LABS: Basophils % (A) 0 %; Eosinophils # (A) 0.1 k/uL (0-0.7); Eosinophils % (A) 2 %; HCT 41.6 % (39.0-53.0); HGB 13.5 gm/dL (13.0-17.5); Lymphocytes # (A) 1.4 k/uL (1.0-4.8); Lymphocytes % (A) 22 %; MCH 28.2 pg (25.0-35.0); MCHC 32.4 g/dL (31.0-37.0); MCV 87.1 fL (80.0-100.0); Mean Platelet Volume 6.8; Monocytes # (A) 0.4 k/uL (0-1.0); Monocytes % (A) 7 %; Neutrophils # (A) 4.2 k/uL (1.3-7.7); Neutrophils % (A) 66 %; Platelet Count 244 k/uL (150-450); RBC 4.78 m/uL (4.30-5.90); RDW 13.5 % (11.5-15.5); WBC 6.3 k/uL (3.8-10.6)
[2017-05-10 08:25] LABS: Calcium 9.7 mg/dL (8.4-10.2); Potassium 4.4 mmol/L (3.5-5.1)
[2017-05-10] MEDS ORDERED: NON-FORMULARY DRUG (Omeprazole [Omeprazole] 20 MG) PO SCH (13:00)
[2017-05-10] MEDS: SODIUM CHLORIDE 0.9% 1,000 ML IV SCH ×2 (13:38→22:34)
[2017-05-10] MEDS: amLODIPine 5 MG TAB PO SCH (13:51)
[2017-05-10] MEDS: cloNIDine HCL 0.1 MG TAB PO SCH ×3 (13:51→22:28)
[2017-05-10] MEDS: LABETALOL 100 MG TAB PO SCH ×2 (13:52→20:21)
[2017-05-10] MEDS: SERTRALINE 100 MG TAB PO SCH (13:52)
[2017-05-10] MEDS: SODIUM BICARBONATE TAB 650 MG TAB PO SCH ×2 (13:53→22:27)
--- NOTE | 2017-05-10 14:09 | HP ---
HISTORY AND PHYSICAL DATE OF ADMISSION: 05/09/2017 PRESENTING COMPLAINT: Coffee-grounds emesis. HISTORY OF PRESENTING COMPLAINT: This is a pleasant 72-year-old patient of Dr. Weinberg who is a resident of [facility]. Patient has a known history of squamous cell cancer, status post right upper lobe and middle lobe lobectomy. Patient also had some weakness on the left side from a prior stroke. Patient has a PEG tube in for malnutrition. Patient until late last year was drinking alcohol and smoking cigarettes. Patient now presents with 5 episodes of vomiting and coffee-grounds emesis for reason patient was sent in here. Patient has actually been eating by mouth. No dark stool or blood in the stool was noted. Denies any abdominal pain. Patient does feel a bit weak, tired, run down. Patient does not complain of any dark stools, otherwise. REVIEW OF SYSTEMS: CONSTITUTIONAL: Tired. HEENT: None. RESPIRATORY: None. CARDIOVASCULAR: None. GASTROINTESTINAL: As above. GENITOURINARY: None. MUSCULOSKELETAL: Weakness of the muscles. DERMATOLOGICAL: None. HEMATOLOGICAL: None. LYMPHATIC: None. PSYCHIATRY: None. NEUROLOGICAL: None. PAST MEDICAL HISTORY: Squamous cell cancer with right upper middle lobe lobectomy, left-sided weakness from prior stroke, protein-calorie malnutrition, essential hypertension, GERD. Medical debility chronic kidney disease stage 3, anemia from chronic kidney disease, PEG tube, lung surgeries as above. SOCIAL HISTORY: Patient smoked about 50 years, stopped a few months ago. Patient also drinking alcohol up until a few months ago. Patient is a resident of [facility]. FAMILY HISTORY: Reviewed, noncontributory to presentation. HOME MEDICATIONS: 1. Catapres 0.3 mg p.o. t.i.d. 2. Norvasc 5 mg p.o. daily. 3. Zoloft 100 mg p.o. daily. 4. Phenergan 12.5 IM q.6 p.r.n. 5. Omeprazole 20 mg b.i.d. 6. Milk of Magnesia 24 mg q.72 hours p.r.n. 7. Losartan 50 mg q.h.s. 8. Labetalol 3 mg b.i.d. 9. [place] 5 one tablet q.8 p.r.n. 10.Cardizem ER 180 mg q.h.s. 11.Lipitor 40 mg q.h.s. 12.Aspirin 81 mg p.o. daily. ALLERGIES: None. PHYSICAL EXAMINATION: Temperature 98.5, pulse 87, respirations 16, blood pressure on presentation 141/70. GENERAL APPEARANCE: Thin build, lying in bed, not in distress, BMI 117.9. EYES: Pupils equal, conjunctivae are pale. HEENT: External appearance of nose and ear normal, oral cavity dry. NECK: JVD not raised. Mass not palpable. Respiratory effort normal. LUNGS: Diminished breath sounds. CARDIOVASCULAR: First and second sounds normal. No edema. ABDOMEN: Soft, nontender. PEG tube in place. Liver and spleen not palpable. LYMPHATICS: No lymph node palpable in neck or axillae. PSYCHIATRY: Alert and oriented x3, mood and affect normal. NEUROLOGICAL: Pupils equal, cranial nerves grossly intact. INVESTIGATIONS: White count 6.3, hemoglobin 13.5 potassium 4.4, BUN 42, creatinine 1.56. Patient's BUN and creatinine on 04/04/2017 was 24/1.20. ASSESSMENT: 1. Patient presents with coffee-grounds emesis in September of 2016, did go undergo EGD. No ulceration was found that time. It was felt patient may have an element of gastritis at that time. 2. Severe protein-calorie malnutrition body mass index is 17. 3. Chronic PEG tube feeding. 4. Chronic left-sided weakness from prior stroke. 5. Essential hypertension. 6. Gastroesophageal reflux disease. 7. Medical debility, multifactorial. 8. Chronic kidney disease stage 3 from hypertensive nephrosclerosis. 9. Normocytic anemia related to chronic kidney disease. 10.Metabolic acidosis, bicarbonate is low. PLAN: Patient has been n.p.o. except for p.o. meds. GI was consulted. Home medications are resumed. H and H will be closely followed. Patient has been put on IV fluids. Patient's for his metabolic acidosis where sodium bicarb will be done. Care was discussed with the patient. MMODL / IJN: [id number] /
[2017-05-10] MEDS: ATORVASTATIN 40 MG TAB PO SCH (20:21)
[2017-05-10] MEDS: DILTIAZEM CD 180 MG CAP.ER.24H PO SCH (20:21)
[2017-05-10] MEDS: LOSARTAN 50 MG TAB PO SCH (22:28)
--- NOTE | 2017-05-10 22:39 | CONS ---
CONSULTATION REQUESTING PHYSICIANS: Dr. Albert and Dr. Weinberg. REASON FOR CONSULTATION: GI bleed. HISTORY OF PRESENT ILLNESS: The patient is a 72-year-old white male, a regular patient of Dr. Weinberg and resident of a care home, was sent to the emergency room because of an episode of coffee- ground emesis. The patient had PEG tube placed a couple of years ago and according to the nursing staff, he gets nutrition via the PEG tube as well as has been able to eat orally. Because of these couple of episodes of coffee-ground emesis, he was transferred to the emergency room and the patient subsequently admitted to the hospital for further evaluation. As per the nursing staff, since being here, he did not have any episodes of coffee-ground emesis or melena. His initial hemoglobin was 8.5 and repeat hemoglobin this morning is 7.6 g/dL. The patient does not really maintain p.o. He reports no abdominal pain. He had a similar episode a few months ago and had an upper endoscopy done in September 2016 which showed some gastritis. PAST MEDICAL HISTORY: Significant for lung CA, for right middle lobectomy, CVA with left-sided hemiparesis, hypertension, GERD, hyperlipidemia, chronic kidney disease. PAST SURGICAL HISTORY: PEG tube placement and lung surgery. MEDICATIONS AT HOME: 1. Catapres. 2. . 3. Zoloft. 4. Phenergan. 5. Omeprazole. 6. Methotrexate. 7. Losartan. 8. Labetalol. 9. [place]. 10.Cardizem. 11.Lipitor. 12.Aspirin. ALLERGIES: None. SOCIAL HISTORY: Chronic smoker. No alcohol use. Presently a resident of [facility]. REVIEW OF SYSTEMS: CARDIOPULMONARY: He denies any chest pain or shortness of breath. GENITOURINARY: He denies any symptoms. NEUROLOGY: Unremarkable other than CVA in the past. GI: PEG tube placed a couple of years ago following the CVA. unremarkable. CONSTITUTIONAL: No recent weight loss. No fevers, chills, night sweats . He appears comfortable, no apparent distress. Vitals are stable. Blood pressure is , temperature 98.5. HEENT: Unremarkable. Conjunctivae pink. Sclerae anicteric. Oral cavity: No lesions. CHEST: Clear to auscultation. HEART: Regular rate and rhythm. ABDOMEN: The PEG tube was placed, appeared normal. Abdomen was benign. EXTREMITIES: No pedal edema. SKIN: No rashes. NEUROLOGICAL: Alert and oriented x3. LABS: WBC , platelets are 273, repeat hemoglobin 13.5. Basic metabolic panel is within normal limits. BUN was 42, creatinine 1.56. This morning, repeat labs showed a BUN of 31 and creatinine 0.21. Lipase is normal. IMPRESSION: 1. This is a patient with history of cerebrovascular accident and had a percutaneous endoscopic gastrostomy tube placed a couple of years ago, was admitted to hospital because of 2 episodes of coffee-ground emesis while in the care home. Since being in the hospital, he has not had any further episodes of bleeding. In fact, his hemoglobin is 13.5 g/dL. He has PEG tube in place for prior history of CVA and dysphagia. Presently, tube feeds have been on hold. Clinically, he appears very stable with no further bleeding. His last upper endoscopy mild gastritis. 2. Coffee-ground emesis witnessed at the care home, but no bleeding since the patient being in the hospital. Hemoglobin stable at 13.5 g/dL. He had an upper endoscopy done in September 2016 that was unremarkable. 3. History of cerebrovascular accident/dysphagia, status post percutaneous endoscopic gastrostomy tube placement 2 years ago. RECOMMENDATIONS: 1. Continue with Protonix. 2. Since no evidence of active bleeding and since the patient already had an upper endoscopy 6 months ago with no significant findings, I will not plan on proceeding with any endoscopy intervention at the present time. His tube feeds can be resumed and I discussed with the nursing staff to find out what tube feeds he has been receiving at the care home and continue with the same. based on his symptoms over the next 24-48 hours. For now, will follow him closely during his hospital stay. Thank you for this consultation. MMODL / IJN: [id number] /
[2017-05-11 07:21] LABS: Basophils % (A) 0 %; Eosinophils # (A) 0.1 k/uL (0-0.7); Eosinophils % (A) 2 %; HCT 42.1 % (39.0-53.0); HGB 13.9 gm/dL (13.0-17.5); Lymphocytes # (A) 1.3 k/uL (1.0-4.8); Lymphocytes % (A) 22 %; MCH 28.1 pg (25.0-35.0); Mean Platelet Volume 6.9; Monocytes # (A) 0.3 k/uL (0-1.0); Monocytes % (A) 5 %; Neutrophils # (A) 4.2 k/uL (1.3-7.7); Neutrophils % (A) 68 %; Platelet Count 271 k/uL (150-450); RBC 4.95 m/uL (4.30-5.90); RDW 13.6 % (11.5-15.5); WBC 6.2 k/uL (3.8-10.6)
[2017-05-11 07:33] LABS: Calcium 9.6 mg/dL (8.4-10.2); Potassium 3.5 mmol/L (3.5-5.1)
[2017-05-11] MEDS: ONDANSETRON 4 MG/2 ML VIAL IVP PRN ×2 (08:06→15:52)
[2017-05-11] MEDS: SODIUM CHLORIDE 0.9% 1,000 ML IV SCH ×2 (08:07→19:00)
--- NOTE | 2017-05-11 09:08 | XR ---
EXAMINATION TYPE: XR abdomen complete w decub DATE OF EXAM: 05/11/2017 COMPARISON: 05/09/2017 HISTORY: 72-year-old male with vomiting, PEG tube, rule out perforation TECHNIQUE: 4 views FINDINGS: Upright view shows small left and moderate right pleural effusion with elevation of the right hemidia phragm right basilar density. A PEG tube is present. No evidence for free intraperitoneal air. No dilated small bowel or air-fluid levels below multiple air-filled small bowel loops are present th roughout. Colonic gas is also present extending distally into the rectum. Medication tablets conflict ed in the cecum. IMPRESSION: 1. PEG tube present. No free air. 2. Nonobstructive bowel gas pattern. 3. Small left and moderate right pleural effusions with adjacent atelectasis and/or consolidation. Vo lume loss of the right base.
[2017-05-11] MEDS: PANTOPRAZOLE 40 MG/10 ML VIAL IVP SCH (10:27)
--- NOTE | 2017-05-11 11:26 | XR ---
EXAMINATION TYPE: XR chest 2V DATE OF EXAM: 05/11/2017 COMPARISON: 06/20/[address] 01/05/2017 HISTORY: 71-year-old male ECF placement, vomiting TECHNIQUE: AP and lateral views FINDINGS: Plain loss in the right hemithorax with right-sided heart and mediastinal shift redemonstrated. Small right pleural effusion with adjacent opacity persists. Some of the patchy right infrahilar right mid lung density shows improvement as compared to 06/20/2016. Surgical material at the right base. IMPRESSION: 1. Postoperative changes in the right hemithorax with volume loss. 2. Small right pleural effusion with adjacent atelectasis and or consolidation persists.
[2017-05-11] MEDS: HYDROcodone/APAP 5-325MG 1 EACH TAB PO PRN ×2 (12:08→20:23)
[2017-05-11] MEDS: SODIUM BICARBONATE TAB 650 MG TAB PO SCH ×3 (12:10→22:07)
[2017-05-11] MEDS: cloNIDine HCL 0.1 MG TAB PO SCH ×3 (12:10→22:07)
[2017-05-11] MEDS: amLODIPine 5 MG TAB PO SCH (12:10)
[2017-05-11] MEDS: SERTRALINE 100 MG TAB PO SCH (12:10)
[2017-05-11] MEDS: LABETALOL 100 MG TAB PO SCH ×2 (12:10→20:22)
--- NOTE | 2017-05-11 13:28 | PN ---
PROGRESS NOTE DATE OF SERVICE: 05/11/2017 The patient is a 72-year-old pleasant white male admitted to the hospital with a few episodes of coffee-ground emesis. He had history of CVA and a PEG tube placement a few years ago. He was seen in consultation yesterday and he did not have any evidence of bleeding and hence, initiated. He was tolerating well this morning. The patient started complaining of abdominal pain, some nausea, but no emesis. He has been spitting into the emesis basin. PHYSICAL EXAMINATION: On examination, he appears comfortable, No apparent distress. Vital signs are stable. Blood pressure 147/79, pulse rate 82, temperature 99. HEENT examination unremarkable. Conjunctivae pink. Sclerae anicteric. Oral cavity, no lesion. NECK: No JVD or lymph node enlargement. Chest was clear to auscultation. HEART: Regular rate and rhythm. ABDOMEN: Soft. There was mild tenderness in the epigastric area. Bowel sounds are positive. No organomegaly. EXTREMITIES: No pedal edema. SKIN: No rashes. NEURO: Alert and oriented x3. No focal deficits. LABS: WBC 6.2, hemoglobin 13.9, platelets are normal. Abdominal x-rays ordered this morning for abdominal pain were unremarkable. IMPRESSION: 1. Coffee-ground emesis, resolved. 2. History of cerebrovascular accident, status post PEG tube placement intact. 3. Abdominal pain. Abdominal x-rays did not show any evidence of free air. RECOMMENDATIONS: 1. Continue with Protonix 40 mg b.i.d. 2. Continue with a full liquid diet today. 3. Antiemetics and PPI. We will follow the patient closely during his hospital stay. MMODL / IJN: [id number] /
--- NOTE | 2017-05-11 15:52 | PN ---
PROGRESS NOTE DATE OF SERVICE: May 11, 2017. PRESENTING COMPLAINT: Abdominal pain. INTERVAL HISTORY: Patient admitted with coffee-grounds emesis. Seen by Dr. Shi. Not for any further intervention. This morning patient is having abdominal pain. Abdominal x-ray did not show anything acute. No nausea, vomiting and no fever. REVIEW OF SYSTEMS: Done for constitutional, cardiovascular, GI, pulmonary and relevant findings as above. CURRENT MEDICATIONS: Reviewed. EXAMINATION: Temperature 99, pulse 87, respiratory 18, blood pressure 160/75, pulse ox 98% on room air. General appearance: Lying in bed, not in distress. Eyes: Pupils equal. Conjunctivae pale. HEENT: External appearance of nose and ears normal. Oral cavity dry. Neck JVD not raised. Mass not palpable. Respiratory effort: LUNGS: Diminished breath sounds. Cardiovascular: 1st and 2nd sounds normal. No edema. ABDOMEN: Soft, nontender. PEG tube in place. Liver and spleen not palpable. Psychiatry: Awake, answering questions. INVESTIGATIONS: White count 6.2, potassium 3.5. BUN and creatinine is normal. ASSESSMENT: 1. Acute coffee-grounds emesis, probably from gastritis. There is no drop in hemoglobin. 2. Acute abdominal pain with abdominal x-ray is benign. Patient's physical exam is entirely benign. I did discuss with Dr. Shi from her standpoint, which agrees to start the patient on clear liquids, advance that and see how she does. 3. Severe protein calorie malnutrition BMI 17. 4. Chronic PEG tube feeding. 5. Chronic left-sided weakness from prior stroke. 6. Essential hypertension. 7. Gastroesophageal reflux disease. 8. Medical debility multifactorial. 9. Normocytic anemia related to chronic kidney disease. 10.Chronic kidney disease stage 3 from hypertensive nephrosclerosis. 11.Metabolic acidosis probably from renal failure. 12.Acute renal failure likely prerenal. The patient's creatinine has come down from 1.53 down to 1.01. PLAN: The patient x-ray was rather unremarkable. Diet will be currently on clear liquids. See how he does. The patient has no white count. No fever. MMODL / IJN: [id number] /
[2017-05-11] MEDS: ATORVASTATIN 40 MG TAB PO SCH (20:22)
[2017-05-11] MEDS: LOSARTAN 50 MG TAB PO SCH (20:23)
[2017-05-11] MEDS: DILTIAZEM CD 180 MG CAP.ER.24H PO SCH (20:23)
[2017-05-12] MEDS: SODIUM CHLORIDE 0.9% 1,000 ML IV SCH ×2 (04:02→17:14)
[2017-05-12] MEDS: HYDROcodone/APAP 5-325MG 1 EACH TAB PO PRN ×3 (04:02→20:20)
[2017-05-12] MEDS: ONDANSETRON 4 MG/2 ML VIAL IVP PRN ×2 (06:37→15:35)
[2017-05-12 07:47] LABS: Glucose,Whole Blood 110 mg/dL (75-99)
[2017-05-12] MEDS: SERTRALINE 100 MG TAB PO SCH (07:50)
[2017-05-12] MEDS: PANTOPRAZOLE 40 MG TABLET PO SCH (07:50)
[2017-05-12] MEDS: SODIUM BICARBONATE TAB 650 MG TAB PO SCH ×3 (07:50→22:29)
[2017-05-12] MEDS: amLODIPine 5 MG TAB PO SCH (07:50)
[2017-05-12] MEDS: LABETALOL 100 MG TAB PO SCH ×2 (07:51→20:20)
[2017-05-12 08:23] LABS: Calcium 10.2 mg/dL (8.4-10.2); Potassium 3.6 mmol/L (3.5-5.1)
[2017-05-12] MEDS: cloNIDine HCL 0.1 MG TAB PO SCH ×4 (09:56→22:29)
[2017-05-12 11:52] LABS: Glucose,Whole Blood 132 mg/dL (75-99)
[2017-05-12] MEDS ORDERED: IV FLUID CONTINUATION 1,000 ML IV ONE (12:37)
[2017-05-12] MEDS ORDERED: PROPOFOL 10 MG/ML 20 ML VIAL IV ONE (12:38)
[2017-05-12] MEDS ORDERED: ePHEDrine 50 MG/ML 1 ML AMP ONE (12:38)
[2017-05-12] MEDS ORDERED: SODIUM CHLORIDE 0.9% 500 ML IV ONE (12:58)
--- NOTE | 2017-05-12 13:04 | P.PCN ---
Date of Procedure: 05/12/17 Procedure(s) Performed: BRIEF HISTORY: Patient is a 72-year-old, pleasant, white female, with history of CVA in the past was admitted to the hospital with nausea vomiting and coffee- ground emesis 3 days ago. He was treated with Protonix 40 mg twice daily. Yesterday he started experiencing severe abdominal pain mostly in the epigastric area. He continues to have persistent symptoms today and hence he scheduled for an upper endoscopy to evaluate further. PROCEDURE PERFORMED: Esophagogastroduodenoscopy with biopsy. PREOPERATIVE DIAGNOSIS:. Epigastric pain, intermittent nausea vomiting and coffee-ground emesis. IV sedation per anesthesia. PROCEDURE: After informed consent was obtained, the patient was brought into the endoscopy unit. IV sedation was administered by Anesthesia under continuous monitoring. Initially the Olympus GIF-140 video endoscope was inserted into the mouth. Esophagus intubated without any difficulty. It was gradually advanced into the stomach and duodenum and carefully examined. The bulb and the second part of the duodenum appeared normal. The scope at this time was withdrawn to the stomach, adequately insufflated with air, and upon careful examination, mucosa of the antrum had mild gastritis. The internal bumper of the PEG tube was located in the mid body of the stomach along the greater curvature that appeared normal. The mucosa of body, cardia and the fundus appeared normal. The scope was then withdrawn into the esophagus. The GE junction was located at 39 cm from the incisors. There was severe esophagitis seen at erosions, mucosal fold thickening and exudate in the distal esophagus extending from 30- 40 cm from the incisors consistent with LA grade C reflux esophagitis. The rest of the esophagus appeared normal and the patient tolerated the procedure well. IMPRESSION: 1. Mild antral gastritis. 2. Severe esophagitis with erosions and mucosal fold thickening in the distal esophagus extending from 30-40 cm distal incisors consistent with LA grade C reflux esophagitis. RECOMMENDATIONS: The findings of this examination were discussed with the patient. He will continue with Protonix 40 mg twice daily and diet will be advanced as tolerated.
[2017-05-12 17:40] LABS: Glucose,Whole Blood 107 mg/dL (75-99)
[2017-05-12 20:14] LABS: Glucose,Whole Blood 101 mg/dL (75-99)
[2017-05-12] MEDS: DILTIAZEM CD 180 MG CAP.ER.24H PO SCH (20:20)
[2017-05-12] MEDS: LOSARTAN 50 MG TAB PO SCH (20:20)
[2017-05-12] MEDS: ATORVASTATIN 40 MG TAB PO SCH (20:20)
[2017-05-13] MEDS: SODIUM CHLORIDE 0.9% 1,000 ML IV SCH ×2 (03:56→11:45)
[2017-05-13 07:27] LABS: Glucose,Whole Blood 94 mg/dL (75-99)
[2017-05-13 07:31] LABS: Calcium 9.3 mg/dL (8.4-10.2); Potassium 3.3 mmol/L (3.5-5.1)
[2017-05-13] MEDS: SODIUM BICARBONATE TAB 650 MG TAB PO SCH ×2 (08:11→16:49)
[2017-05-13] MEDS: LABETALOL 100 MG TAB PO SCH (08:11)
[2017-05-13] MEDS: cloNIDine HCL 0.1 MG TAB PO SCH ×2 (08:11→16:49)
[2017-05-13] MEDS: SERTRALINE 100 MG TAB PO SCH (08:12)
[2017-05-13] MEDS: amLODIPine 5 MG TAB PO SCH (08:12)
[2017-05-13] MEDS: HYDROcodone/APAP 5-325MG 1 EACH TAB PO PRN (08:12)
[2017-05-13] MEDS: PANTOPRAZOLE 40 MG TABLET PO SCH (08:12)
[2017-05-13 08:58] VITALS: RESP 18
--- NOTE | 2017-05-13 12:09 | PN ---
PROGRESS NOTE DATE OF SERVICE: May 13, 2017 Patient is a 72-year-old pleasant white male with history of CVA in the past who had a PEG tube placed 2 years ago, admitted to the hospital with coffee-grounds emesis. While in the hospital, he developed epigastric and lower abdominal pain. He underwent an upper endoscopy yesterday that showed severe reflux esophagitis and mild gastritis. He is presently on Protonix 40 mg twice daily. This morning he states he is feeling better. Abdominal pain is improving. No further episodes of nausea, vomiting. No diarrhea. PHYSICAL EXAMINATION: Appears comfortable in no apparent distress. Vital signs stable. Blood pressure 145/69, temperature 97.8, pulse rate 60. HEENT examination unremarkable. Conjunctivae pink. Sclerae anicteric. Oral cavity no lesions. Neck: No jugular venous distention or lymph node enlargement. Chest was clear to auscultation. HEART: Regular rate and rhythm. ABDOMEN: Soft. Mild tenderness in the lower abdominal area. Bowel sounds are positive. PEG tube in place. Extremities no pedal edema. NEUROLOGIC: Alert and oriented x3. LABS: Basic metabolic panel is within normal limits. Potassium is 3.3. IMPRESSION: 1. Acute upper gastrointestinal bleed/epigastric pain, status post EGD yesterday showed severe reflux esophagitis and mild gastritis. 2. History of cerebrovascular accident in the past. 3. Status post PEG tube placement 2 years ago. RECOMMENDATIONS: 1. Advance diet. 2. Continue with Protonix 40 mg twice daily. 3. Anti-reflux measures. 4. If he is able to tolerate diet, he can be discharged home with outpatient follow up in 2-3 weeks. MMODL / IJN: [id number] /
--- NOTE | 2017-05-13 13:09 | DS ---
DISCHARGE SUMMARY DATE OF ADMISSION: May 10, 2017. DATE OF DISCHARGE: May 13, 2017. FINAL DIAGNOSES: 1. Acute coffee-grounds emesis from severe esophagitis, esophagitis. 2. Severe protein-calorie malnutrition BMI 17. 3. Chronic PEG tube feeding. 4. Chronic left-sided weakness from prior stroke. 5. Essential hypertension. 6. Gastroesophageal reflux disease. 7. Medical debility multifactorial. 8. Normocytic anemia related to chronic kidney disease. 9. Chronic kidney stage 3 from hypertensive nephrosclerosis. 10.Metabolic acidosis from renal failure. 11.Acute renal failure likely prerenal. Creatinine did come down from 1.53 down to 1.01. HOSPITAL COURSE: This is a patient with a PEG tube, presented with coffee-grounds emesis and abdominal pain. Did undergo EGD, found to have severe esophagitis and gastritis. This was done by Dr. Germaine Shi. The patient is put on PPIs. Patient is to keep head end of the bed elevated. The patient is tolerating his diet. The patient also takes by mouth. EXAM: Lungs decreased breath sounds. Psych AO x3. Abdomen soft, nontender. PEG tube in place. The patient's hemoglobin is 13.9. DISCHARGE MEDICATIONS: 1. Aspirin 81 mg a day. 2. Lipitor 40 mg q.h.s. 3. Phenergan 12.5 IM q.6h p.r.n. 4. Cardizem ER 180 mg q.h.s. 5. Losartan 50 mg q.h.s. 6. Milk of magnesia 2500 mg q72 hours p.r.n. 7. Labetalol 300 mg p.o. b.i.d. 8. Norvasc 5 mg p.o. daily. 9. Zoloft 100 mg p.o. daily. 10.Catapres 0.3 p.o. t.i.d. 11.[place] 5 one tab q.8h p.r.n. 12.Protonix 40 mg p.o. daily. 13.Sodium bicarb 325 p.o. t.i.d. Labs, CBC, BMP in 1 week. DISPOSITION: [facility]. FOLLOWUP: Follow up with Dr. Weinberg. Additional note: The patient when sleeping to keep the head of the bed elevated at 30 degrees at all times to prevent reflux. Copy to Dr. Weinberg. MMODL / IJN: [id number] /
[2017-05-13 14:19] VITALS: BP 101/55; PULSE 52; TEMP 97.5
== END 2017-05-13 18:44 | DRG 391 ==
LOC: EC 18:00 → 5MS5E 19:29 → OBSVTOIN 05-10 14:22
PROVIDERS: ADMIT Hospitalist; ATTEND Hospitalist
PROC: 0DB58ZX Excision of Esophagus, Via Natural or Artificial Opening Endoscopic, Diagnostic (ICD-10-PCS; principal; 2017-05-12 09:30)
DX: K21.0 Gastro-esophageal reflux disease with esophagitis (principal); E43 Unspecified severe protein-calorie malnutrition; N17.9 Acute kidney failure, unspecified; E87.2 Acidosis; I69.954 Hemiplegia and hemiparesis following unspecified cerebrovascular disease affecting left non-dominant side; Z68.1 Body mass index [BMI] 19.9 or less, adult; D63.1 Anemia in chronic kidney disease; R13.10 Dysphagia, unspecified; E86.0 Dehydration; K22.8 Other specified diseases of esophagus; E78.5 Hyperlipidemia, unspecified; I12.9 Hypertensive chronic kidney disease with stage 1 through stage 4 chronic kidney disease, or unspecified chronic kidney disease; K29.60 Other gastritis without bleeding; N18.3 Chronic kidney disease, stage 3 (moderate); I69.991 Dysphagia following unspecified cerebrovascular disease; R53.81 Other malaise; Z79.82 Long term (current) use of aspirin; Z79.899 Other long term (current) drug therapy; Z85.118 Personal history of other malignant neoplasm of bronchus and lung; Z93.1 Gastrostomy status; Z87.11 Personal history of peptic ulcer disease; Z87.891 Personal history of nicotine dependence
CPT/HCPCS: 36415; 43239; 71046; 74018; 74021; 80048; 80053; 83690; 85025; 85610; 85730; 86850; 86900; 86901; 88305; 88312; 96361; 96374; 99284

== ENCOUNTER 2017-07-24 06:23 | Day surgery (SDC) | payer MEDICARE, OTHER ==
[2017-07-19 15:00] VITALS: BMI 19.5
[~2017-07-24 06:23] MED LIST changes: -DEXAMETHASONE SOD PHOSPHATE 10 MG/ML 1 ML VIAL IV ONE; -HYDROmorphone 1 MG/ML 1 ML SYRINGE IVP PRN; -ONDANSETRON 4 MG/2 ML VIAL IVP ONE; -ceFAZolin 1,000 MG in DEXTROSE/WATER 1 50ML.BAG IV ONE
--- NOTE | 2017-07-24 06:27 | P.GSHP ---
History of Present Illness H&P Date: 07/24/17 CHIEF COMPLAINT: GERD and history of PEG tube HISTORY OF PRESENT ILLNESS: The patient is a 72-year-old male who presents reports gastroesophageal reflux disease. He has a PEG tube that he wishes to have removed. Upper endoscopy was offered for further evaluation and management. PAST MEDICAL HISTORY: Please see list. PAST SURGICAL HISTORY: Please see list. MEDICATIONS: Please see list. ALLERGIES: Please see list. SOCIAL HISTORY: No current illicit drug use FAMILY HISTORY: No reports of Crohn disease or ulcerative colitis. REVIEW OF ORGAN SYSTEMS: CONSTITUTIONAL: No reports of fevers or chills. GI: Denies any blood in stools or constipation. PHYSICAL EXAM: VITAL SIGNS: Stable GENERAL: Well-developed and pleasant in no acute distress. HEENT: No scleral icterus. Extraocular movements grossly intact. Moist buccal mucosa. NECK: Supple without lymphadenopathy. CHEST: Unlabored respirations. Equal bilateral excursions. CARDIOVASCULAR: Regular rate and rhythm. Distal 2+ pulses. ABDOMEN: Soft, nondistended. MUSCULOSKELETAL: No clubbing, cyanosis, or edema. ASSESSMENT: 1. Gastroesophageal reflux disease 2. PEG tube status. PLAN: 1. Recommend proceeding with an upper endoscopy 2. Removal of PEG tube per patient request Past Medical History Past Medical History: Blood Disorder, Cancer, CVA/TIA, GERD/Reflux, GI Bleed, Hyperlipidemia, Hypertension Additional Past Medical History / Comment(s): Hx: CVA in 1999 with left-sided residual weakness, non-small cell lung cancer, anemia, emphysema, gastritis, constipation, nausea, pain, dysphagia, protien calorie malnutrition, muscle weakness, wasting and atrophy. History of Any Multi-Drug Resistant Organisms: None Reported Past Surgical History: No Surgical Hx Reported Additional Past Surgical History / Comment(s): Bronchoscopy, peg tube placement , right thorocotomy, right middle and lower lobectomies. Past Anesthesia/Blood Transfusion Reactions: No Reported Reaction Additional Past Anesthesia/Blood Transfusion Reaction / Comment(s): Unknown anesthesia and family hx. Smoking Status: Former smoker - Past Family History Father History Unknown: Yes Mother History Unknown: Yes Medications and Allergies Home Medications Medication Instructions Recorded Confirmed Type Aspirin [Adult Low Dose Aspirin EC] 81 mg PO QAM 09/21/16 07/19/17 History Atorvastatin Calcium [Lipitor] 40 mg PO HS 09/21/16 07/19/17 History Phenergan Solution 12.5 mg IM Q6HR PRN 09/21/16 07/19/17 History Diltiazem HCl [Diltiazem 24Hr ER] 180 mg PO HS 01/05/17 07/19/17 History Losartan Potassium 50 mg PO HS 01/05/17 07/19/17 History Magnesium Hydroxide [Milk of 30 ml PO Q72H PRN 01/05/17 07/19/17 History Magnesia] Labetalol [Trandate] 300 mg PO BID #1 tab 01/09/17 07/19/17 Rx Sertraline [Zoloft] 100 mg PO QAM 05/09/17 07/19/17 History cloNIDine HCL [Catapres] 0.3 mg PO TID 05/09/17 07/19/17 History Hydrocodone/Acetaminophen [[place] 1 tab PO Q8HR PRN #14 tablet 05/13/17 07/19/17 Rx 5-325] Sodium Bicarbonate Tab 325 mg PO TID tab 05/13/17 07/19/17 Rx Bisacodyl 10 mg RECTAL Q72H PRN 07/19/17 07/19/17 History Docusate [Colace] 100 mg PO BID 07/19/17 07/19/17 History Ferrous Sulfate [Feosol] 325 mg PO DAILY 07/19/17 07/19/17 History Pantoprazole Sodium [Protonix] 40 mg PO BID 07/19/17 07/19/17 History amLODIPine [Norvasc] 5 mg PO QAM 07/19/17 07/19/17 History Allergies Allergy/AdvReac Type Severity Reaction Status Date / Time No Known Allergies Allergy Verified 07/19/17 15:05
[2017-07-24 06:49] VITALS: TEMP 97.7
[2017-07-24] MEDS ORDERED: LACTATED RINGERS 1,000 ML IV ONE ×2 (06:55)
[2017-07-24] MEDS ORDERED: PROPOFOL 10 MG/ML 20 ML VIAL IV ONE (07:18)
--- NOTE | 2017-07-24 07:34 | P.PCN ---
Date of Procedure: 07/24/17 Description of Procedure: PREOPERATIVE DIAGNOSIS: Gastroesophageal reflux disease. PEG tube status Previous history of protein malnutrition POSTOPERATIVE DIAGNOSIS: Gastroesophageal reflux disease. PEG tube status Previous history of protein malnutrition Diaphragmatic hiatal hernia without obstruction. OPERATION: Esophagogastroduodenoscopy with removal of PEG tube SURGEON: Kalie Sweet MD ANESTHESIA: MAC. INDICATIONS: The patient is a 72-year-old male who presents with a history of PEG tube placed secondary to protein malnutrition. Benefits and risks of the procedure were described. Informed consent was obtained. DESCRIPTION: The patient was brought into the endoscopy suite and laid in the left lateral decubitus position. An Olympus gastroscope was passed along the posterior oropharynx down to the distal esophagus where the squamocolumnar junction was encountered at 45 cm from the incisors. The stomach was entered and retained food was found within the antrum. Additional findings are listed below. The first portion of the duodenum was examined and unremarkable. Retroflexion of the scope confirmed Hill grade 4 lower esophageal valve. The squamocolumnar junction demostrated LA grade B erosive esophagitis. Under visualization, the gastrostomy tube was pulled without sequelae. A 4 x 4 gauze and Tegaderm was placed over the gastrostomy site. The stomach was desufflated. The patient tolerated the procedure well. FINDINGS: Squamocolumnar junction 44 cm from the incisors. Diaphragmatic hiatus at 45 cm. Hiatal hernia 1 cm. Hill grade 4 lower esophageal valve. LA grade B erosive esophagitis. No active duodenitis. PEG tube removal without sequelae RECOMMENDATIONS: Upper endoscopy as needed. Plan - Discharge Summary New Discharge Prescriptions: No Action Phenergan Solution 12.5 mg IM Q6HR PRN PRN Reason: Nausea Atorvastatin Calcium [Lipitor] 40 mg PO HS Aspirin [Adult Low Dose Aspirin EC] 81 mg PO QAM Losartan Potassium 50 mg PO HS Diltiazem HCl [Diltiazem 24Hr ER] 180 mg PO HS Magnesium Hydroxide [Milk of Magnesia] 30 ml PO Q72H PRN PRN Reason: Constipation Labetalol [Trandate] 300 mg PO BID #1 tab cloNIDine HCL [Catapres] 0.3 mg PO TID Sertraline [Zoloft] 100 mg PO QAM Sodium Bicarbonate Tab 325 mg PO TID tab Hydrocodone/Acetaminophen [[place] 5-325] 1 tab PO Q8HR PRN #14 tablet PRN Reason: Pain amLODIPine [Norvasc] 5 mg PO QAM Pantoprazole Sodium [Protonix] 40 mg PO BID Ferrous Sulfate [Feosol] 325 mg PO DAILY Docusate [Colace] 100 mg PO BID Bisacodyl 10 mg RECTAL Q72H PRN PRN Reason: Constipation Discharge Medication List Aspirin [Adult Low Dose Aspirin EC] 81 mg PO QAM 09/21/16 [History] Atorvastatin Calcium [Lipitor] 40 mg PO HS 09/21/16 [History] Phenergan Solution 12.5 mg IM Q6HR PRN 09/21/16 [History] Diltiazem HCl [Diltiazem 24Hr ER] 180 mg PO HS 01/05/17 [History] Losartan Potassium 50 mg PO HS 01/05/17 [History] Magnesium Hydroxide [Milk of Magnesia] 30 ml PO Q72H PRN 01/05/17 [History] Labetalol [Trandate] 300 mg PO BID #1 tab 01/09/17 [Rx] Sertraline [Zoloft] 100 mg PO QAM 05/09/17 [History] cloNIDine HCL [Catapres] 0.3 mg PO TID 05/09/17 [History] Hydrocodone/Acetaminophen [[place] 5-325] 1 tab PO Q8HR PRN #14 tablet 05/13/17 [ Rx] Sodium Bicarbonate Tab 325 mg PO TID tab 05/13/17 [Rx] Bisacodyl 10 mg RECTAL Q72H PRN 07/19/17 [History] Docusate [Colace] 100 mg PO BID 07/19/17 [History] Ferrous Sulfate [Feosol] 325 mg PO DAILY 07/19/17 [History] Pantoprazole Sodium [Protonix] 40 mg PO BID 07/19/17 [History] amLODIPine [Norvasc] 5 mg PO QAM 07/19/17 [History]
[2017-07-24 07:53] VITALS: BP 127/61; PULSE 46; RESP 18
== END 2017-07-24 08:14 ==
LOC: ORWHC2ENDO 06:23
PROVIDERS: ATTEND Surgery Plastic and Reconstructive Surgery
DX: Z43.1 Encounter for attention to gastrostomy (principal); E46 Unspecified protein-calorie malnutrition; E78.5 Hyperlipidemia, unspecified; K21.0 Gastro-esophageal reflux disease with esophagitis; I10 Essential (primary) hypertension; J43.9 Emphysema, unspecified; I69.998 Other sequelae following unspecified cerebrovascular disease; K44.9 Diaphragmatic hernia without obstruction or gangrene; I69.954 Hemiplegia and hemiparesis following unspecified cerebrovascular disease affecting left non-dominant side; Z79.82 Long term (current) use of aspirin; Z85.118 Personal history of other malignant neoplasm of bronchus and lung; Z87.891 Personal history of nicotine dependence; Z79.899 Other long term (current) drug therapy
CPT/HCPCS: 43247; J2704; G0463; 99212

== ENCOUNTER 2017-11-21 17:32 | Inpatient (IN) | payer MEDICARE, OTHER ==
[2017-11-21] MEDS ORDERED: MORPHINE SULFATE 4 MG/ML SYRINGE IV STA (18:18)
[2017-11-21] MEDS ORDERED: ONDANSETRON 4 MG/2 ML VIAL IVP STA (18:18)
[2017-11-21] MEDS ORDERED: SODIUM CHLORIDE 0.9% 1,000 ML IV STA (18:22)
[2017-11-21] MEDS ORDERED: ACETAMINOPHEN TAB 325 MG TAB PO STA (18:29)
--- NOTE | 2017-11-21 18:29 | ED ---
Abdominal Pain HPI - General Source: patient, EMS, RN notes reviewed Mode of arrival: EMS Limitations: physical limitation <Belem Sheikh - Last Filed: 11/21/17 21:55> <Ben Tolbert - Last Filed: 11/22/17 06:00> - General Chief Complaint: Abdominal Pain Stated Complaint: Abd pain Time Seen by Provider: 11/21/17 18:00 - History of Present Illness Initial Comments: This is a 72-year-old male with history of esophagitis, chronic kidney disease and malnutrition who presents to the emergency department with chief complaint of abdominal pain. Patient is a resident at [facility]. Patient is a poor historian. He states that he has been having abdominal pain for the past month and a half and that today the abdominal pain worsened. He describes the pain as achy. He states that he has been nauseous and vomiting. He reports constipation. He states that he was given a suppository today and he had a very small bowel movement. According to nurse's notes, BM was witnessed and it was large and soft. Patient continues to be concerned that he is constipated. Patient was found to be febrile while at [facility] and was sent to ED for evaluation. Denies chest pain or shortness of breath. (Belem Sheikh) - Related Data Home Medications Medication Instructions Recorded Confirmed Aspirin [Adult Low Dose Aspirin EC] 81 mg PO QAM 09/21/16 11/21/17 Atorvastatin Calcium [Lipitor] 40 mg PO HS 09/21/16 11/21/17 Diltiazem HCl [Diltiazem 24Hr ER] 180 mg PO HS 01/05/17 11/21/17 Losartan Potassium 50 mg PO HS 01/05/17 11/21/17 Magnesium Hydroxide [Milk of 30 ml PO Q72H PRN 01/05/17 11/21/17 Magnesia] Sertraline [Zoloft] 100 mg PO QAM 05/09/17 11/21/17 cloNIDine HCL [Catapres] 0.3 mg PO TID 05/09/17 11/21/17 Bisacodyl 10 mg RECTAL Q72H PRN 07/19/17 11/21/17 Docusate [Colace] 100 mg PO BID 07/19/17 11/21/17 Ferrous Sulfate [Feosol] 325 mg PO DAILY 07/19/17 11/21/17 Pantoprazole Sodium [Protonix] 40 mg PO BID 07/19/17 11/21/17 amLODIPine [Norvasc] 5 mg PO QAM 07/19/17 11/21/17 Acetaminophen Tab [Tylenol Tab] 500 mg PO Q8HR PRN 11/21/17 11/21/17 Promethazine HCl [Phenergan Syrup] 12.5 mg PO Q6HR PRN 11/21/17 11/21/17 Previous Rx's Medication Instructions Recorded Labetalol [Trandate] 300 mg PO BID #1 tab 01/09/17 Hydrocodone/Acetaminophen [[place] 1 tab PO Q8HR PRN #14 tablet 05/13/17 5-325] Sodium Bicarbonate Tab 325 mg PO TID tab 05/13/17 Allergies Allergy/AdvReac Type Severity Reaction Status Date / Time No Known Allergies Allergy Verified 11/21/17 17:51 Review of Systems ROS Other: All systems not noted in ROS Statement are negative. <Belem Sheikh - Last Filed: 11/21/17 21:55> ROS Other: All systems not noted in ROS Statement are negative. <Ben Tolbert - Last Filed: 11/22/17 06:00> ROS Statement: Those systems with pertinent positive or pertinent negative responses have been documented in the HPI. 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 History of Any Multi-Drug Resistant Organisms: None Reported Past Surgical History: No Surgical Hx Reported Additional Past Surgical History / Comment(s): bronchoscopy. Patient has peg tube he says was placed 3 months ago. Past Anesthesia/Blood Transfusion Reactions: No Reported Reaction Additional Past Anesthesia/Blood Transfusion Reaction / Comment(s): unknown anesthesia and family hx Past Psychological History: No Psychological Hx Reported Smoking Status: Current every day smoker Past Alcohol Use History: Daily Past Drug Use History: None Reported - Past Family History Father History Unknown: Yes Mother History Unknown: Yes <Belem Sheikh - Last Filed: 11/21/17 21:55> General Exam Limitations: physical limitation <Belem Sheikh - Last Filed: 10/16/18 21:55> <Ben Tolbert - Last Filed: 11/22/17 06:00> - General Exam Comments Initial Comments: General: Awake and alert, well-developed; in mild distress due to pain and appears uncomfortable. Patient appears chronically ill, HEENT: Head atraumatic, normocephalic. Pupils are equal, round and reactive to light. Extraocular movements intact. Oropharynx dry without erythema. Missing dentition. Neck: Supple. Normal ROM. Cardiovascular: Regular rate and rhythm. No murmurs, rubs or gallops. Chest symmetrical. Respiratory: Lungs clear to auscultation bilaterally. No wheezes, rales or rhonchi. Normal respiratory effort with no use of accessory muscles. Abdomen: Soft, nondistended. Generalized tenderness on palpation, especially in the left lower quadrant which has associated guarding. No rebound or rigidity. Normal bowel sounds in all 4 quadrants. Well-healed scar from previous PEG tube left upper quadrant. Musculoskeletal: Normal range of motion of bilateral upper and lower extremities. Patient does report weakness to the left side following previous stroke. Skin: [place], warm and dry without rashes or lesions. Neurological: Alert and oriented x3. CN II-XII grossly intact. Speech is fluent and answers are appropriate. Psychiatric: Normal mood and affect. No overt signs of depression or anxiety noted. (Belem Sheikh) Vital Signs 11/21/17 11/21/17 11/21/17 17:43 17:45 18:00 Temperature 100.5 F H Pulse Rate 91 Respiratory 18 18 Rate Blood Pressure 133/82 O2 Sat by Pulse 98 98 98 Oximetry 11/21/17 11/21/17 11/21/17 19:00 19:30 20:00 Temperature Pulse Rate 88 80 Respiratory 18 18 Rate Blood Pressure 141/80 136/79 136/79 O2 Sat by Pulse 97 96 Oximetry 11/21/17 11/21/17 11/21/17 20:41 22:00 22:30 Temperature 99.1 F 99.1 F Pulse Rate 85 79 84 Respiratory 17 18 16 Rate Blood Pressure 138/83 124/79 123/78 O2 Sat by Pulse 98 97 97 Oximetry Medical Decision Making - Lab Data Result diagrams: 11/21/17 19:05 11/21/17 19:05 - Radiology Data Radiology results: report reviewed, image reviewed <Belem Sheikh - Last Filed: 11/21/17 21:55> - Lab Data Result diagrams: 11/21/17 19:05 11/21/17 19:05 <Ben Tolbert - Last Filed: 11/22/17 06:00> - Medical Decision Making This is a 72-year-old male who presents to emergency department with chief complaint of abdominal pain. On physical examination, there is generalized tenderness on palpation of the abdomen, especially in the left lower quadrant which has associated guarding. Patient reports nausea and vomiting as well as constipation. He was transported to the emergency department via EMS from [facility]. They report that patient has been complaining of abdominal pain and has been febrile. Although patient states he is constipated, nursing notes indicate that patient has been having normal bowel movements. CBC reveals an elevated white count at 16.4 with a left shift of 14.8. Creatinine is elevated at 1.42 is slightly higher than patient's baseline. Lactic acid is normal at 1.4. Blood cultures are pending. X-ray KUB revealed no acute abnormalities. Patient continued to complain of pain and was markedly tender in the left lower quadrant. A computed tomography scan of the abdomen and pelvis without contrast was obtained which revealed evidence for colitis. He is started on Levaquin and Flagyl. He will be admitted to Dr. Mcleod. Patient is in agreement for admission. Vital signs are stable and patient is in no acute distress. Condition upon admission is stable. (Belem Sheikh) I saw this patient in conjunction with the physician retail loan originator assistant. I performed independent history and physical exam. Agree with case management. (Ben Tolbert) - Lab Data Lab Results 11/21/17 11/21/17 11/21/17 Range/Units 19:05 19:05 19:05 WBC 16.4 H (3.8-10.6) k/uL RBC 5.39 (4.30-5.90) m/uL Hgb 15.1 (13.0-17.5) gm/dL Hct 46.5 (39.0-53.0) % MCV 86.3 (80.0-100.0) fL MCH 28.1 (25.0-35.0) pg MCHC 32.5 (31.0-37.0) g/dL RDW 15.9 H (11.5-15.5) % Plt Count 254 (150-450) k/uL Neutrophils % 90 % Lymphocytes % 4 % Monocytes % 4 % Eosinophils % 1 % Basophils % 0 % Neutrophils # 14.8 H (1.3-7.7) k/uL Lymphocytes # 0.7 L (1.0-4.8) k/uL Monocytes # 0.6 (0-1.0) k/uL Eosinophils # 0.2 (0-0.7) k/uL Basophils # 0.0 (0-0.2) k/uL PT 10.4 (9.0-12.0) sec INR 1.1 (<1.2) APTT 24.3 (22.0-30.0) sec Sodium 137 (137-145) mmol/L Potassium 5.1 (3.5-5.1) mmol/L Chloride 102 (98-107) mmol/L Carbon Dioxide 23 (22-30) mmol/L Anion Gap 12 mmol/L BUN 18 (9-20) mg/dL Creatinine 1.42 H (0.66-1.25) mg/dL Est GFR (CKD-EPI)AfAm 57 (>60 ml/min/1.73 sqM) Est GFR (CKD-EPI)NonAf 49 (>60 ml/min/1.73 sqM) Glucose 117 H (74-99) mg/dL Plasma Lactic Acid Rey (0.7-2.0) mmol/L Calcium 9.9 (8.4-10.2) mg/dL Total Bilirubin 1.0 (0.2-1.3) mg/dL AST 27 (17-59) U/L ALT 33 (21-72) U/L Alkaline Phosphatase 67 (38-126) U/L Total Protein 7.6 (6.3-8.2) g/dL Albumin 4.4 (3.5-5.0) g/dL Amylase 109 (30-110) U/L Lipase 29 (23-300) U/L Urine Color Urine Appearance (Clear) Urine pH (5.0-8.0) Ur Specific [place] (1.001-1.035) Urine Protein (Negative) Urine Glucose (UA) (Negative) Urine Ketones (Negative) Urine Blood (Negative) Urine Nitrite (Negative) Urine Bilirubin (Negative) Urine Urobilinogen (<2.0) mg/dL Ur Leukocyte Esterase (Negative) Urine RBC (0-5) /hpf Urine WBC (0-5) /hpf Ur Squamous Epith Cells (0-4) /hpf 11/21/17 11/21/17 Range/Units 19:05 19:49 WBC (3.8-10.6) k/uL RBC (4.30-5.90) m/uL Hgb (13.0-17.5) gm/dL Hct (39.0-53.0) % MCV (80.0-100.0) fL MCH (25.0-35.0) pg MCHC (31.0-37.0) g/dL RDW (11.5-15.5) % Plt Count (150-450) k/uL Neutrophils % % Lymphocytes % % Monocytes % % Eosinophils % % Basophils % % Neutrophils # (1.3-7.7) k/uL Lymphocytes # (1.0-4.8) k/uL Monocytes # (0-1.0) k/uL Eosinophils # (0-0.7) k/uL Basophils # (0-0.2) k/uL PT (9.0-12.0) sec INR (<1.2) APTT (22.0-30.0) sec Sodium (137-145) mmol/L Potassium (3.5-5.1) mmol/L Chloride (98-107) mmol/L Carbon Dioxide (22-30) mmol/L Anion Gap mmol/L BUN (9-20) mg/dL Creatinine (0.66-1.25) mg/dL Est GFR (CKD-EPI)AfAm (>60 ml/min/1.73 sqM) Est GFR (CKD-EPI)NonAf (>60 ml/min/1.73 sqM) Glucose (74-99) mg/dL Plasma Lactic Acid Rey 1.4 (0.7-2.0) mmol/L Calcium (8.4-10.2) mg/dL Total Bilirubin (0.2-1.3) mg/dL AST (17-59) U/L ALT (21-72) U/L Alkaline Phosphatase (38-126) U/L Total Protein (6.3-8.2) g/dL Albumin (3.5-5.0) g/dL Amylase (30-110) U/L Lipase (23-300) U/L Urine Color Light Yellow Urine Appearance Clear (Clear) Urine pH 7.0 (5.0-8.0) Ur Specific [place] 1.006 (1.001-1.035) Urine Protein Negative (Negative) Urine Glucose (UA) Negative (Negative) Urine Ketones Negative (Negative) Urine Blood Trace H (Negative) Urine Nitrite Negative (Negative) Urine Bilirubin Negative (Negative) Urine Urobilinogen <2.0 (<2.0) mg/dL Ur Leukocyte Esterase Negative (Negative) Urine RBC 1 (0-5) /hpf Urine WBC 1 (0-5) /hpf Ur Squamous Epith Cells <1 (0-4) /hpf - Radiology Data X-ray KUB impression: Nonacute abdomen. There is probably right pleural effusion or pleural reaction unchanged. CT abdomen and pelvis without contrast impression: Compared to old exam there is new rectal wall thickening with fat stranding consistent with colitis. Small bowel fluid levels are suggestive of mild ileus. I do not see evidence of a mechanical small bowel obstruction. There is stable right pleural effusion and volume loss in the right hemithorax compared to old exam. Old granulomatous disease. As read by Dr. Tadeo. (Belem Sheikh) Disposition Is patient prescribed a controlled substance at d/c from ED?: No Time of Disposition: 21:56 <Belem Sheikh - Last Filed: 11/21/17 21:55> <Ben Tolbert - Last Filed: 11/22/17 06:00> Clinical Impression: Colitis, Acute on chronic renal failure Disposition: ADMITTED IP TO THIS HOSP Condition: Fair
[2017-11-21 19:16] LABS: Basophils % (A) 0 %; Eosinophils # (A) 0.2 k/uL (0-0.7); Eosinophils % (A) 1 %; HCT 46.5 % (39.0-53.0); HGB 15.1 gm/dL (13.0-17.5); Lymphocytes # (A) 0.7 k/uL (1.0-4.8); Lymphocytes % (A) 4 %; MCH 28.1 pg (25.0-35.0); MCHC 32.5 g/dL (31.0-37.0); MCV 86.3 fL (80.0-100.0); Mean Platelet Volume 6.9; Monocytes # (A) 0.6 k/uL (0-1.0); Monocytes % (A) 4 %; Neutrophils # (A) 14.8 k/uL (1.3-7.7); Neutrophils % (A) 90 %; Platelet Count 254 k/uL (150-450); RBC 5.39 m/uL (4.30-5.90); RDW 15.9 % (11.5-15.5); WBC 16.4 k/uL (3.8-10.6)
[2017-11-21 19:25] LABS: Albumin 4.4 g/dL (3.5-5.0); Calcium 9.9 mg/dL (8.4-10.2); Potassium 5.1 mmol/L (3.5-5.1); Total Protein 7.6 g/dL (6.3-8.2)
--- NOTE | 2017-11-21 19:39 | XR ---
EXAMINATION TYPE: XR KUB DATE OF EXAM: 11/21/2017 COMPARISON: 05/09/2017 HISTORY: Abdominal pain TECHNIQUE: 2 views supine FINDINGS: There is no sign of intestinal obstruction or pneumoperitoneum. Fecal pattern is normal. Th ere is no evidence of a mass. There is blunting of right costophrenic angle. IMPRESSION: Nonacute abdomen. There is probably right pleural effusion or pleural reaction unchanged.
[2017-11-21 19:51] LABS: INR 1.1 (<1.2); Partial Thromboplastin Time 24.3 sec (22.0-30.0); Prothrombin Time 10.4 sec (9.0-12.0)
[2017-11-21 20:11] LABS: Appearance,Urine Clear (Clear); Bilirubin,Urine Negative (Negative); Blood,Urine Trace (Negative); Color,Urine Light Yellow; Glucose,Urine (UA) Negative (Negative); Ketones,Urine Negative (Negative); Leukocyte Esterase,Urine Negative (Negative); Nitrite,Urine Negative (Negative); Protein,Urine Negative (Negative); RBC,Urine 1 /hpf (0-5); Specific Gravity,Urine 1.006 (1.001-1.035); Squamous Epithelial Cell,Urine <1 /hpf (0-4); Urobilinogen,Urine <2.0 mg/dL (<2.0); WBC,Urine 1 /hpf (0-5)
--- NOTE | 2017-11-21 20:43 | CT ---
EXAMINATION TYPE: CT abdomen pelvis wo con DATE OF EXAM: 11/21/2017 COMPARISON: 01/05/2017 HISTORY: generalized pain CT DLP: 329.5 mGycm Automated exposure control for dose reduction was used. TECHNIQUE: Helical acquisition of images was performed from the lung bases through the pelvis. FINDINGS: There is mild right pleural effusion. There is elevated right diaphragm. Heart is shifted to the righ t side. There are apparent surgical clips at the right pulmonary hilum. Heart size is normal. There i s no pericardial effusion. There is some fluid in the distal esophagus. There are small calcified granulomata in the spleen. There is no evidence of pancreatic mass. There a re small calcified areas of the liver that probably related to granulomatous disease. Bile ducts are not dilated. Gallbladder appears normal. There is small hiatal hernia. Stomach is otherwise unremarka ble. There is no adrenal mass. The kidneys have normal size. There is 3.5 cm cyst in the interpolar right kidney. There is 2 cm cyst upper pole right kidney. There is 1.5 cm cyst lateral left kidney. Ureters are not dilated. Abdominal aorta is atheromatous. There is distended 2.8 cm fluid-filled loop of dis dora small bowel. I see no small bowel wall thickening. There are a few small bowel air-fluid levels. Bladder distends smoothly. There is some spondylotic mild change in the lumbar spine. I see no bony d estructive process. There is rectal wall thickening. There is no free air. There is fat stranding around the rectum. Ther e is umbilical hernia that contains fat. There is no inguinal hernia. IMPRESSION: COMPARED TO OLD EXAM THERE IS NEW RECTAL WALL THICKENING WITH FAT STRANDING CONSISTENT WITH COLITIS. SMALL BOWEL FLUID LEVELS ARE SUGGESTIVE OF MILD ILEUS. I DO NOT SEE EVIDENCE OF A MECHANICAL SMALL MITALI WEL OBSTRUCTION. There is stable right pleural effusion and volume loss in the right hemithorax dc red to old exam. Old granulomatous disease.
[2017-11-21] MEDS ORDERED: LEVOFLOXACIN 750MG-D5W PMX 750 MG in DEXTROSE/WATER 1 150ML.BAG IVPB SCH (21:00)
[2017-11-21] MEDS ORDERED: metroNIDAZOLE-NS PMX 500 MG in SALINE 1 100ML.BAG IVPB STA (21:15)
[2017-11-21] MEDS ORDERED: LEVOFLOXACIN 750MG-D5W PMX 750 MG in DEXTROSE/WATER 1 150ML.BAG IVPB ONE (21:15)
[2017-11-21] MEDS ORDERED: ACETAMINOPHEN TAB 325 MG TAB PO PRN (21:45)
[2017-11-21] MEDS ORDERED: NALOXONE 0.4 MG/ML 1 ML VIAL IV PRN (21:45)
[2017-11-21] MEDS ORDERED: HYDROmorphone 1 MG/ML 1 ML SYRINGE IVP PRN (21:45)
[2017-11-21 23:20] VITALS: BMI 20.7
[2017-11-21] MEDS: SODIUM CHLORIDE 0.9% 1,000 ML IV SCH (23:27)
[2017-11-21] MEDS: MORPHINE SULFATE 4 MG/ML SYRINGE IV PRN (23:31)
[2017-11-22] MEDS ORDERED: metroNIDAZOLE-NS PMX 500 MG in SALINE 1 100ML.BAG IVPB SCH
[2017-11-22] MEDS: metroNIDAZOLE-NS PMX 500 MG in SALINE 1 100ML.BAG IVPB SCH ×4 (00:44→23:48)
[2017-11-22] MEDS: SODIUM CHLORIDE 0.9% 1,000 ML IV SCH ×2 (08:36→23:48)
[2017-11-22] MEDS: SODIUM BICARBONATE TAB 650 MG TAB PO SCH ×3 (08:37→23:50)
[2017-11-22] MEDS: SERTRALINE 100 MG TAB PO SCH (08:37)
[2017-11-22] MEDS: PANTOPRAZOLE 40 MG TABLET PO SCH ×2 (08:37→21:10)
[2017-11-22] MEDS: FERROUS SULFATE 325 MG TAB PO SCH (08:37)
[2017-11-22] MEDS: LABETALOL 100 MG TAB PO SCH ×2 (08:38→21:10)
[2017-11-22] MEDS: MORPHINE SULFATE 4 MG/ML SYRINGE IV PRN (08:54)
[2017-11-22] MEDS ORDERED: LEVOFLOXACIN 750MG-D5W PMX 750 MG in DEXTROSE/WATER 1 150ML.BAG IVPB SCH (09:00)
[2017-11-22] MEDS ORDERED: cloNIDine HCL 0.1 MG TAB PO SCH (09:00)
--- NOTE | 2017-11-22 13:36 | P.HPIM ---
History of Present Illness 72-year-old gentleman extended poor historian with history of chronic kidney disease came in with complaints of pain in the right upper quadrant and the right lower rib cage area. Sharp in nature beyond that he is unable to characterize anything. Patient had one episode of diarrhea because of rectal suppository he received. Patient had an abdominal CAT scan not sure why he had an abdominal CAT scan probably because of this right upper quadrant abdominal pain he is unable to characterize the pain furthermore. CAT scan of the abdomen did show colitis for which patient was started on levofloxacin and metronidazole which I believe is an incidental finding. I'll obtain a right upper quadrant abdominal ultrasound looking for any gallbladder pathology. Plan cautioned he did say he is a pain increases with deep breathing because of which are obtain a chest x-ray my suspicion is low for PE, d-dimer will be obtained unfortunately fits elevated To do a VQ scan. Chest x-ray will help me to rule out any pneumonia although my suspicion is low rib fracture. Patient doesn't have any fever does have leukocytosis. 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 History of Any Multi-Drug Resistant Organisms: None Reported Past Surgical History: No Surgical Hx Reported Additional Past Surgical History / Comment(s): bronchoscopy. Patient has peg tube he says was placed 3 months ago. Past Anesthesia/Blood Transfusion Reactions: No Reported Reaction Additional Past Anesthesia/Blood Transfusion Reaction / Comment(s): unknown anesthesia and family hx Past Psychological History: No Psychological Hx Reported Smoking Status: Current some day smoker Past Alcohol Use History: Daily Additional Past Alcohol Use History / Comment(s): smoked 50 years and says he quit 2 months ago., states he drinks one drink per day. He lives at [facility] for the last 3-4 months. Past Drug Use History: None Reported - Past Family History Father History Unknown: Yes Mother History Unknown: Yes Medications and Allergies Home Medications Medication Instructions Recorded Confirmed Type Aspirin [Adult Low Dose Aspirin EC] 81 mg PO QAM 09/21/16 11/21/17 History Atorvastatin Calcium [Lipitor] 40 mg PO HS 09/21/16 11/21/17 History Diltiazem HCl [Diltiazem 24Hr ER] 180 mg PO HS 01/05/17 11/21/17 History Losartan Potassium 50 mg PO HS 01/05/17 11/21/17 History Magnesium Hydroxide [Milk of 30 ml PO Q72H PRN 01/05/17 11/21/17 History Magnesia] Labetalol [Trandate] 300 mg PO BID #1 tab 01/09/17 11/21/17 Rx Sertraline [Zoloft] 100 mg PO QAM 05/09/17 11/21/17 History cloNIDine HCL [Catapres] 0.3 mg PO TID 05/09/17 11/21/17 History Hydrocodone/Acetaminophen [[place] 1 tab PO Q8HR PRN #14 tablet 05/13/17 11/21/17 Rx 5-325] Sodium Bicarbonate Tab 325 mg PO TID tab 05/13/17 11/21/17 Rx Bisacodyl 10 mg RECTAL Q72H PRN 07/19/17 11/21/17 History Docusate [Colace] 100 mg PO BID 07/19/17 11/21/17 History Ferrous Sulfate [Feosol] 325 mg PO DAILY 07/19/17 11/21/17 History Pantoprazole Sodium [Protonix] 40 mg PO BID 07/19/17 11/21/17 History amLODIPine [Norvasc] 5 mg PO QAM 07/19/17 11/21/17 History Acetaminophen Tab [Tylenol Tab] 500 mg PO Q8HR PRN 11/21/17 11/21/17 History Promethazine HCl [Phenergan Syrup] 12.5 mg PO Q6HR PRN 11/21/17 11/21/17 History Allergies Allergy/AdvReac Type Severity Reaction Status Date / Time No Known Allergies Allergy Verified 11/21/17 17:51 Physical Exam Vitals: Vital Signs Temp Pulse Pulse Pulse Resp BP BP 11/22/17 07:00 98.3 F 83 18 150/88 11/21/17 23:45 97.0 F L 98 80 16 98/65 11/21/17 22:30 99.1 F 84 16 123/78 11/21/17 22:00 79 18 124/79 11/21/17 20:41 99.1 F 85 17 138/83 11/21/17 20:00 80 18 136/79 18 19:30 136/79 11/21/17 19:00 88 18 141/80 11/21/17 18:00 18 133/82 11/21/17 17:45 100.5 F H 91 18 11/21/17 17:43 Pulse Ox 11/22/17 07:00 95 11/21/17 23:45 11/21/17 22:30 97 11/21/17 22:00 97 11/21/17 20:41 98 11/21/17 20:00 96 11/21/17 19:30 11/21/17 19:00 97 11/21/17 18:00 98 11/21/17 17:45 98 11/21/17 17:43 98 Intake and Output 11/21/17 11/22/17 11/22/17 22:59 06:59 14:59 Intake Total 800 Balance 800 Intake: Intake, IV Titration 800 Amount Levofloxacin 750Mg-D5w 100 Pmx 750 mg In Dextrose/ Water 1 150ml.bag @ 100 mls/hr IVPB DAILY [facility] Rx# :[id number] Sodium Chloride 0.9% 1, 600 000 ml @ 100 mls/hr IV . Q10H [facility] Rx#:[id number] metroNIDAZOLE-NS PMX 500 100 mg In Saline 1 100ml.bag @ 100 mls/hr IVPB Q8HR [facility] Rx#:[id number] Other: # Voids 2 Weight 65.771 kg 65.771 kg PHYSICAL EXAMINATION: GENERAL: The patient is alert and oriented x3, not in any acute distress. Well developed, well nourished. HEENT: Pupils are round and equally reacting to light. EOMI. No scleral icterus. No conjunctival pallor. Normocephalic, atraumatic. No pharyngeal erythema. No thyromegaly. CARDIOVASCULAR: S1 and S2 present. No murmurs, rubs, or gallops. PULMONARY: Chest is clear to auscultation, no wheezing or crackles. ABDOMEN: Soft, right upper abdominal and right lower chest tenderness, nondistended, normoactive bowel sounds. No palpable organomegaly. MUSCULOSKELETAL: No joint swelling or deformity. EXTREMITIES: No cyanosis, clubbing, or pedal edema. NEUROLOGICAL: Gross neurological examination did not reveal any focal deficits. SKIN: No rashes. Results CBC & Chem 7: 11/21/17 19:05 11/21/17 19:05 Labs: Abnormal Lab Results - Last 24 Hours (Table) 11/21/17 11/21/17 11/21/17 Range/Units 19:05 19:05 19:49 WBC 16.4 H (3.8-10.6) k/uL RDW 15.9 H (11.5-15.5) % Neutrophils # 14.8 H (1.3-7.7) k/uL Lymphocytes # 0.7 L (1.0-4.8) k/uL Creatinine 1.42 H (0.66-1.25) mg/dL Glucose 117 H (74-99) mg/dL Urine Blood Trace H (Negative) Thrombosis Risk Factor Assmnt - Choose All That Apply Any of the Below Risk Factors Present?: No Each Risk Factor Represents 2 Points: Age 61-74 years Other congenital or acquired thrombophilia - If yes, enter type in comment: No Thrombosis Risk Factor Assessment Total Risk Factor Score: 2 Thrombosis Risk Factor Assessment Level: Low Risk Assessment and Plan Plan: -Right upper quadrant abdominal pain largely obtain a gallbladder ultrasound to rule out any rib fracture with the chest x-ray rule out pneumonia. 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
--- NOTE | 2017-11-22 13:53 | XR ---
EXAMINATION TYPE: XR chest 2V DATE OF EXAM: 11/22/2017 COMPARISON: Chest x-ray May 11, 2017. CT abdomen and pelvis from yesterday. HISTORY: Chest pain and pneumonia rule out rib fracture. TECHNIQUE: Frontal and lateral views of the chest are obtained. FINDINGS: There is persistent right-sided volume loss with hilar clips and residual right basilar sm all pleural fluid collection. There is background chronic emphysematous change. Left lung is clear. T he cardiac silhouette size is within normal limits. The osseous structures are intact. IMPRESSION: Overall stable findings, right-sided surgical change with volume loss and residual small right pleural fluid collection. No new acute infiltrate.
--- NOTE | 2017-11-22 15:58 | US ---
EXAMINATION TYPE: US gallbladder DATE OF EXAM: 11/22/2017 COMPARISON: CT 11/21/17, CLINICAL HISTORY: r/o gall stones. EXAM MEASUREMENTS: Liver Length: 16.1 cm Gallbladder Wall: 0.2 cm CBD: 0.2 cm Right Kidney: 11.0 x 5.7 x 5.5 cm Pancreas: Obscured by bowel gas Liver: Multiple small liver cysts Largest = 1.3 x0.7 x 1.2 cm. Calcifications seen within liver. ? Dilated biliary radicles. Gallbladder: wnl Evidence for sonographic Alfaro's sign: Yes CBD: wnl Right Kidney: ? renal stone medial, mid pole. 2 cysts: 1) upper pole = 1.8 x 1.8 x 1.6 cm 2) Upper pole = 2.0 x 0.9 x 1.8 3) Lower Pole = 3.3 x 3.5 x 3.2 cm Sub optimal exam overall d/t patient unable to cooperate. IMPRESSION: No shadowing mobile gallstones or ultrasound evidence for acute cholecystitis. Overall rodríguez boptimal study noted due to patient being noncooperative.
[2017-11-22] MEDS: HEPARIN SODIUM,PORCINE 5,000 UNIT/ML 1 ML VIAL SQ SCH ×2 (16:01→23:49)
[2017-11-22] MEDS: cloNIDine HCL 0.2 MG TAB PO SCH ×2 (16:01→23:49)
[2017-11-22] MEDS: ATORVASTATIN 40 MG TAB PO SCH (21:10)
[2017-11-22] MEDS: DILTIAZEM CD 180 MG CAP.ER.24H PO SCH (21:10)
[2017-11-22] MEDS: traMADol 50 MG TAB PO PRN (23:55)
[2017-11-23] MEDS: SODIUM CHLORIDE 0.9% 1,000 ML IV SCH ×3 (05:30→22:30)
[2017-11-23] MEDS: FERROUS SULFATE 325 MG TAB PO SCH (08:59)
[2017-11-23] MEDS: traMADol 50 MG TAB PO PRN ×2 (08:59→18:09)
[2017-11-23] MEDS: PANTOPRAZOLE 40 MG TABLET PO SCH ×2 (09:00→21:05)
[2017-11-23] MEDS: SODIUM BICARBONATE TAB 650 MG TAB PO SCH ×3 (09:01→22:28)
[2017-11-23] MEDS: cloNIDine HCL 0.2 MG TAB PO SCH ×3 (09:01→23:43)
[2017-11-23] MEDS: SERTRALINE 100 MG TAB PO SCH (09:01)
[2017-11-23] MEDS: LABETALOL 100 MG TAB PO SCH ×2 (09:03→21:05)
[2017-11-23] MEDS: HEPARIN SODIUM,PORCINE 5,000 UNIT/ML 1 ML VIAL SQ SCH ×2 (09:03→18:08)
[2017-11-23] MEDS: metroNIDAZOLE-NS PMX 500 MG in SALINE 1 100ML.BAG IVPB SCH ×2 (09:03→16:34)
[2017-11-23 12:14] LABS: Basophils % (A) 0 %; Eosinophils # (A) 0.1 k/uL (0-0.7); Eosinophils % (A) 1 %; HCT 39.5 % (39.0-53.0); HGB 12.8 gm/dL (13.0-17.5); Lymphocytes # (A) 1.2 k/uL (1.0-4.8); Lymphocytes % (A) 18 %; MCH 28.4 pg (25.0-35.0); MCHC 32.4 g/dL (31.0-37.0); MCV 87.6 fL (80.0-100.0); Monocytes # (A) 0.4 k/uL (0-1.0); Monocytes % (A) 7 %; Neutrophils # (A) 4.7 k/uL (1.3-7.7); Neutrophils % (A) 71 %; Platelet Count 187 k/uL (150-450); RBC 4.51 m/uL (4.30-5.90); RDW 15.8 % (11.5-15.5); WBC 6.6 k/uL (3.8-10.6)
[2017-11-23 12:29] LABS: Albumin 3.1 g/dL (3.5-5.0); Calcium 8.9 mg/dL (8.4-10.2); Potassium 4.3 mmol/L (3.5-5.1); Total Bilirubin 0.7 mg/dL (0.2-1.3); Total Protein 5.7 g/dL (6.3-8.2)
--- NOTE | 2017-11-23 18:12 | P.GSCN ---
History of Present Illness Consult date: 11/23/17 Reason for Consult: Abdominal pain History of present illness: Patient admitted through [facility] with complaints of abdominal pain. Patient also complaining of constipation however per the nursing staff he had been having regular bowel movements. At times the patient states his pain in the left abdomen and at times he states its in the right side of his abdomen. Denies fevers. No nausea or vomiting. Today he states his pain is absent. His appetite is improving he states. CAT scan was obtained which showed thickening of the wall of the rectum and also some thickening of the hepatic flexure of the colon consistent with colitis. On admission his white blood cell count was elevated although improved today. He was started on IV antibiotics. Denies any history of rectal bleeding or previous colonoscopy. He did have a PEG tube placed and subsequently removed by Dr. Epperson earlier this summer for malnutrition. 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 History of Any Multi-Drug Resistant Organisms: None Reported Past Surgical History: No Surgical Hx Reported Additional Past Surgical History / Comment(s): bronchoscopy. Patient has peg tube he says was placed 3 months ago. Past Anesthesia/Blood Transfusion Reactions: No Reported Reaction Additional Past Anesthesia/Blood Transfusion Reaction / Comm: unknown anesthesia and family hx Past Psychological History: No Psychological Hx Reported Smoking Status: Current some day smoker Past Alcohol Use History: Daily Additional Past Alcohol Use History / Comment(s): smoked 50 years and says he quit 2 months ago., states he drinks one drink per day. He lives at [facility] for the last 3-4 months. Past Drug Use History: None Reported - Past Family History Father History Unknown: Yes Mother History Unknown: Yes Medications and Allergies Home Medications Medication Instructions Recorded Confirmed Type Aspirin [Adult Low Dose Aspirin EC] 81 mg PO QAM 09/21/16 11/21/17 History Atorvastatin Calcium [Lipitor] 40 mg PO HS 09/21/16 11/21/17 History Diltiazem HCl [Diltiazem 24Hr ER] 180 mg PO HS 01/05/17 11/21/17 History Losartan Potassium 50 mg PO HS 01/05/17 11/21/17 History Magnesium Hydroxide [Milk of 30 ml PO Q72H PRN 01/05/17 11/21/17 History Magnesia] Labetalol [Trandate] 300 mg PO BID #1 tab 01/09/17 11/21/17 Rx Sertraline [Zoloft] 100 mg PO QAM 05/09/17 11/21/17 History cloNIDine HCL [Catapres] 0.3 mg PO TID 05/09/17 11/21/17 History Hydrocodone/Acetaminophen [[place] 1 tab PO Q8HR PRN #14 tablet 05/13/17 11/21/17 Rx 5-325] Sodium Bicarbonate Tab 325 mg PO TID tab 05/13/17 11/21/17 Rx Bisacodyl 10 mg RECTAL Q72H PRN 07/19/17 11/21/17 History Docusate [Colace] 100 mg PO BID 07/19/17 11/21/17 History Ferrous Sulfate [Feosol] 325 mg PO DAILY 07/19/17 11/21/17 History Pantoprazole Sodium [Protonix] 40 mg PO BID 07/19/17 11/21/17 History amLODIPine [Norvasc] 5 mg PO QAM 07/19/17 11/21/17 History Acetaminophen Tab [Tylenol Tab] 500 mg PO Q8HR PRN 11/21/17 11/21/17 History Promethazine HCl [Phenergan Syrup] 12.5 mg PO Q6HR PRN 11/21/17 11/21/17 History Allergies Allergy/AdvReac Type Severity Reaction Status Date / Time No Known Allergies Allergy Verified 11/21/17 17:51 Surgical - Exam Vital Signs Pulse Ox 98 11/21/17 17:43 Physical exam: General: Well-developed, well-nourished HEENT: Normocephalic, sclerae nonicteric Abdomen: Mild diffuse tenderness, nondistended Extremities: No edema Neuro: Alert and oriented Results - Labs 11/23/17 11:45 11/23/17 11:45 Abnormal Lab Results - Last 24 Hours (Table) 11/23/17 11/23/17 Range/Units 11:45 11:45 Hgb 12.8 L (13.0-17.5) gm/dL RDW 15.8 H (11.5-15.5) % Chloride 109 H (98-107) mmol/L Carbon Dioxide 18 L (22-30) mmol/L Glucose 104 H (74-99) mg/dL Total Protein 5.7 L (6.3-8.2) g/dL Albumin 3.1 L (3.5-5.0) g/dL Microbiology - Last 24 Hours (Table) 11/21/17 19:05 Blood Culture - Preliminary Blood No Growth after 24 hours Diabetes panel 11/23/17 Range/Units 11:45 Sodium 138 (137-145) mmol/L Potassium 4.3 (3.5-5.1) mmol/L Chloride 109 H (98-107) mmol/L Carbon Dioxide 18 L (22-30) mmol/L BUN 15 (9-20) mg/dL Creatinine 1.21 (0.66-1.25) mg/dL Glucose 104 H (74-99) mg/dL Calcium 8.9 (8.4-10.2) mg/dL AST 23 (17-59) U/L ALT 23 (21-72) U/L Alkaline Phosphatase 46 (38-126) U/L Total Protein 5.7 L (6.3-8.2) g/dL Albumin 3.1 L (3.5-5.0) g/dL Calcium panel 11/23/17 Range/Units 11:45 Calcium 8.9 (8.4-10.2) mg/dL Albumin 3.1 L (3.5-5.0) g/dL Pituitary panel 11/23/17 Range/Units 11:45 Sodium 138 (137-145) mmol/L Potassium 4.3 (3.5-5.1) mmol/L Chloride 109 H (98-107) mmol/L Carbon Dioxide 18 L (22-30) mmol/L BUN 15 (9-20) mg/dL Creatinine 1.21 (0.66-1.25) mg/dL Glucose 104 H (74-99) mg/dL Calcium 8.9 (8.4-10.2) mg/dL Adrenal panel 11/23/17 Range/Units 11:45 Sodium 138 (137-145) mmol/L Potassium 4.3 (3.5-5.1) mmol/L Chloride 109 H (98-107) mmol/L Carbon Dioxide 18 L (22-30) mmol/L BUN 15 (9-20) mg/dL Creatinine 1.21 (0.66-1.25) mg/dL Glucose 104 H (74-99) mg/dL Calcium 8.9 (8.4-10.2) mg/dL Total Bilirubin 0.7 (0.2-1.3) mg/dL AST 23 (17-59) U/L ALT 23 (21-72) U/L Alkaline Phosphatase 46 (38-126) U/L Total Protein 5.7 L (6.3-8.2) g/dL Albumin 3.1 L (3.5-5.0) g/dL Assessment and Plan (1) Colitis Narrative/Plan: Patient with complaints of abdominal pain. His pain seemed to be more in the right upper quadrant at one point which could be explained by the inflammatory changes seen at the hepatic flexure of the colon. The rectal wall thickening however is more impressive. Continue IV antibiotics. Advance diet. Current Visit: Yes Status: Acute Code(s): K52.9 - NONINFECTIVE GASTROENTERITIS AND COLITIS, UNSPECIFIED SNOMED Code(s): 00241624
[2017-11-23] MEDS ORDERED: HYDROcodone/APAP 5-325MG 1 EACH TAB PO PRN (19:52)
--- NOTE | 2017-11-23 20:24 | PN ---
PROGRESS NOTE DATE OF SERVICE: 11/24/2007 This 72-year-old gentleman was admitted with abdominal pain from the [facility], still complaining of abdominal pain, some distention also. Ultrasound did not show any evidence of gallstones, but the patient had significant thickening of the hepatic flexure and rectal wall thickening which is impressive per Dr. Mathis the surgeon. The patient remained symptomatic. The patient is on IV antibiotics. Patient closely monitored. PAST MEDICAL HISTORY: Reviewed. REVIEW OF SYSTEMS: CARDIOVASCULAR: No angina. RESPIRATORY: No cough. GI: Mentioned earlier. : No dysuria. NERVOUS SYSTEM: No numbness or weakness. CURRENT MEDICATIONS: Reviewed and include: 1. Tylenol p.r.n. 2. Lipitor 40 mg q.h.s. 3. Catapres 0.2 t.i.d. 4. Cardizem CD 180 mg. 5.subcu q.8. 6. Trandate. 7. Levaquin 500 mg IV. 8. Flagyl 500 mg IV q.8h. 9. Narcan. 10.Protonix. 11.Zoloft. 12.Ultram. PHYSICAL EXAM: Patient is alert, oriented x3. Pulse 69, blood pressure 166/95, respirations 16 , temperature 98.4, pulse ox 97% on room air. HEENT: Conjunctivae normal. Oral mucosa moist. Neck is no jugular venous distention. No carotid bruit. No lymph node enlargement. CARDIOVASCULAR: S1, S2. No S3, no S4. RESPIRATORY: Breath sounds diminished in the bases. A few scattered rhonchi. ABDOMEN: Soft. Mild diffuse distention. Mild diffuse tenderness also present. LEGS: No edema, no swelling. NERVOUS SYSTEM: Higher functions as mentioned earlier. Moves all four limbs. No focal motor deficits. Left-sided weakness present. LYMPHATICS: No lymphadenopathy in the neck, axillae, groin. SKIN: No ulcer, rashes or bleeding. LAB STUDIES: WBC 6.3, hemoglobin 12.8, sodium 130, potassium 4.3, and albumin 3.1. ASSESSMENT: 1. Right upper quadrant abdominal pain possibly colitis. 2. Rectal wall thickening in the CT scan. 3. Chronic kidney stage 3. 4. Gastroesophageal reflux disease. 5. Cerebrovascular accident, transient ischemic attack in the past. 6. History of hypertension. 7. History of nicotine dependence. 8. Increased creatinine with mild acute renal failure, present on admission. 9. Increased WBC. RECOMMENDATIONS AND DISCUSSION: This 72-year-old gentleman who presented with multiple complex medical issues, we will monitor the patient closely. Continue the current medications, symptomatic treatment. I will continue with a clear liquid diet. Surgical evaluation. Cautious IV fluids. Otherwise, continue the combination of Flagyl and. Follow cultures. There is no evidence of C difficile colitis at this time. Prognosis guarded because of multiple complex medical issues. Further recommendations to follow. MMODL / IJN: [id number] / [email or web address]
[2017-11-23] MEDS: ATORVASTATIN 40 MG TAB PO SCH (21:05)
[2017-11-23] MEDS: DILTIAZEM CD 180 MG CAP.ER.24H PO SCH (21:05)
[2017-11-23] MEDS: LOSARTAN 50 MG TAB PO SCH (21:06)
[2017-11-24] MEDS: metroNIDAZOLE-NS PMX 500 MG in SALINE 1 100ML.BAG IVPB SCH ×3 (00:32→16:01)
[2017-11-24] MEDS: HEPARIN SODIUM,PORCINE 5,000 UNIT/ML 1 ML VIAL SQ SCH ×3 (00:34→16:06)
[2017-11-24] MEDS: ONDANSETRON 4 MG/2 ML VIAL IVP PRN (06:31)
[2017-11-24 08:19] LABS: Basophils % (A) 0 %; Eosinophils # (A) 0.2 k/uL (0-0.7); Eosinophils % (A) 3 %; HCT 40.1 % (39.0-53.0); HGB 12.8 gm/dL (13.0-17.5); Lymphocytes % (A) 16 %; MCH 28.1 pg (25.0-35.0); MCV 87.9 fL (80.0-100.0); Mean Platelet Volume 6.7; Monocytes # (A) 0.4 k/uL (0-1.0); Monocytes % (A) 6 %; Neutrophils # (A) 4.6 k/uL (1.3-7.7); Neutrophils % (A) 72 %; Platelet Count 186 k/uL (150-450); RBC 4.56 m/uL (4.30-5.90); RDW 15.7 % (11.5-15.5); WBC 6.4 k/uL (3.8-10.6)
[2017-11-24 08:37] LABS: Calcium 8.8 mg/dL (8.4-10.2); Potassium 3.8 mmol/L (3.5-5.1)
[2017-11-24] MEDS: LEVOFLOXACIN 750MG-D5W PMX 750 MG in DEXTROSE/WATER 1 150ML.BAG IVPB SCH (09:53)
[2017-11-24] MEDS: amLODIPine 5 MG TAB PO SCH (09:58)
[2017-11-24] MEDS: PANTOPRAZOLE 40 MG TABLET PO SCH ×2 (09:58→20:17)
[2017-11-24] MEDS: SODIUM BICARBONATE TAB 650 MG TAB PO SCH ×3 (09:58→23:43)
[2017-11-24] MEDS: FERROUS SULFATE 325 MG TAB PO SCH (09:58)
[2017-11-24] MEDS: LABETALOL 100 MG TAB PO SCH ×2 (09:59→20:16)
[2017-11-24] MEDS: cloNIDine HCL 0.2 MG TAB PO SCH ×3 (09:59→23:44)
[2017-11-24] MEDS: SERTRALINE 100 MG TAB PO SCH (09:59)
--- NOTE | 2017-11-24 10:01 | P.PN ---
Subjective Progress Note Date: 11/24/17 Principal diagnosis: Colitis Patient doing well today. Denies abdominal pain. He is afebrile. He is asking for more to eat. Tolerating clears. Objective - Vital Signs Vital signs: Vital Signs Temp 98.3 F 11/24/17 07:10 Pulse 68 11/24/17 07:10 Resp 17 11/24/17 07:10 BP 173/83 11/24/17 07:10 Pulse Ox 97 11/24/17 00:07 Intake & Output 11/23/17 11/24/17 11/24/17 18:59 06:59 18:59 Intake Total 700 Balance 700 Weight 65.771 kg Intake: Intake, IV Titration 700 Amount Sodium Chloride 0.9% 1, 700 000 ml @ 75 mls/hr IV . [id number] [facility] Rx#:[id number] Other: # Voids 1 - Exam Endocrine: Soft, nondistended, minimal lower abdominal tenderness - Labs CBC & Chem 7: 11/24/17 07:30 11/24/17 07:30 Labs: Abnormal Lab Results - Last 24 Hours (Table) 11/23/17 11/23/17 11/24/17 Range/Units 11:45 11:45 07:30 Hgb 12.8 L 12.8 L (13.0-17.5) gm/dL RDW 15.8 H 15.7 H (11.5-15.5) % Chloride 109 H (98-107) mmol/L Carbon Dioxide 18 L (22-30) mmol/L Glucose 104 H (74-99) mg/dL Total Protein 5.7 L (6.3-8.2) g/dL Albumin 3.1 L (3.5-5.0) g/dL 11/24/17 Range/Units 07:30 Hgb (13.0-17.5) gm/dL RDW (11.5-15.5) % Chloride 109 H (98-107) mmol/L Carbon Dioxide 19 L (22-30) mmol/L Glucose 110 H (74-99) mg/dL Total Protein (6.3-8.2) g/dL Albumin (3.5-5.0) g/dL Microbiology - Last 24 Hours (Table) 11/21/17 19:05 Blood Culture - Preliminary Blood No Growth after 48 hours Assessment and Plan (1) Colitis Narrative/Plan: Continue antibiotics. Advance diet. If tolerates no surgical intervention planned. If symptoms persist consider endoscopy. Current Visit: Yes Status: Acute Code(s): K52.9 - NONINFECTIVE GASTROENTERITIS AND COLITIS, UNSPECIFIED SNOMED Code(s): 13863820
[2017-11-24] MEDS: SODIUM CHLORIDE 0.9% 1,000 ML IV SCH (16:02)
--- NOTE | 2017-11-24 18:25 | PN ---
PROGRESS NOTE DATE OF SERVICE: 11/24/2017 This 72-year-old gentleman admitted with right upper quadrant abdominal pain with possible colitis is being closely monitored. Patient on IV antibiotics. No chest pain. No palpitations. No fever. EXAM: Pulse 68, blood pressure 173/88, respiration 17, temperature 98.2, pulse ox 98% on room air. HEENT: Conjunctivae normal. Oral mucosa moist. Neck is no jugular venous distention. No carotid bruit. No lymph node enlargement. Cardiovascular system: S1, S2 muffled. Respiration: Breath sounds diminished at the bases. No rhonchi. No crackles. Abdomen soft. Mild diffuse tenderness present. Legs no edema, no swelling. Central nervous system: No focal deficits. LAB STUDIES: WBC 6.5, hemoglobin 12.8, sodium 130, potassium 3.8. ASSESSMENT: 1. Right upper quadrant abdominal pain with possible colitis. 2. Rectal wall thickening in the CT scan. 3. Chronic kidney disease stage III. 4. Gastroesophageal reflux disease. 5. Cerebrovascular accident, transient ischemic attack in the past. 6. History of hypertension. 7. History of nicotine dependence. 8. Increased creatinine with mild acute renal failure present on admission. 9. Increased WBC. RECOMMENDATIONS AND DISCUSSION: Recommend to continue current medications, management and symptomatic treatment. Otherwise, at this time, I recommend symptomatic treatment and increase ambulation. See orders. The rest of the orders. Further recommendations to follow. ELEUTERIO / ROLAND: [id number] /
[2017-11-24] MEDS: ATORVASTATIN 40 MG TAB PO SCH (20:17)
[2017-11-24] MEDS: LOSARTAN 50 MG TAB PO SCH (20:17)
[2017-11-24] MEDS: DILTIAZEM CD 180 MG CAP.ER.24H PO SCH (20:17)
[2017-11-25] MEDS: SODIUM CHLORIDE 0.9% 1,000 ML IV SCH ×2 (01:03→16:52)
[2017-11-25] MEDS: metroNIDAZOLE-NS PMX 500 MG in SALINE 1 100ML.BAG IVPB SCH ×4 (01:04→23:44)
[2017-11-25] MEDS: HEPARIN SODIUM,PORCINE 5,000 UNIT/ML 1 ML VIAL SQ SCH ×4 (01:04→23:44)
[2017-11-25 07:48] LABS: Basophils % (A) 0 %; Eosinophils # (A) 0.2 k/uL (0-0.7); Eosinophils % (A) 3 %; HCT 39.8 % (39.0-53.0); HGB 13.1 gm/dL (13.0-17.5); Lymphocytes % (A) 20 %; MCH 28.2 pg (25.0-35.0); MCHC 32.8 g/dL (31.0-37.0); MCV 85.9 fL (80.0-100.0); Mean Platelet Volume 6.8; Monocytes # (A) 0.3 k/uL (0-1.0); Monocytes % (A) 6 %; Neutrophils # (A) 3.5 k/uL (1.3-7.7); Neutrophils % (A) 68 %; Platelet Count 189 k/uL (150-450); RBC 4.63 m/uL (4.30-5.90); RDW 15.7 % (11.5-15.5); WBC 5.2 k/uL (3.8-10.6)
[2017-11-25 08:01] LABS: Potassium 3.9 mmol/L (3.5-5.1)
[2017-11-25 08:02] LABS: Calcium 8.9 mg/dL (8.4-10.2)
[2017-11-25] MEDS: SODIUM BICARBONATE TAB 650 MG TAB PO SCH ×3 (09:35→23:44)
[2017-11-25] MEDS: FERROUS SULFATE 325 MG TAB PO SCH (09:36)
[2017-11-25] MEDS: SERTRALINE 100 MG TAB PO SCH (09:36)
[2017-11-25] MEDS: cloNIDine HCL 0.2 MG TAB PO SCH ×3 (09:36→23:45)
[2017-11-25] MEDS: PANTOPRAZOLE 40 MG TABLET PO SCH ×2 (09:36→23:45)
[2017-11-25] MEDS: amLODIPine 5 MG TAB PO SCH (09:36)
[2017-11-25] MEDS: LABETALOL 100 MG TAB PO SCH ×2 (09:36→23:45)
[2017-11-25] MEDS: ONDANSETRON 4 MG/2 ML VIAL IVP PRN (10:18)
--- NOTE | 2017-11-25 12:27 | P.PN ---
Subjective Progress Note Date: 11/25/17 Principal diagnosis: Colitis Patient doing well today. Mild nausea this morning. Tolerated some of his diet. He did have a bowel movement today. He is afebrile. White blood cell count is normal. Objective - Vital Signs Vital signs: Vital Signs Temp 97.7 F 11/25/17 08:04 Pulse 69 11/25/17 08:04 Resp 15 11/25/17 08:04 BP 179/86 11/25/17 08:04 Pulse Ox 99 11/25/17 08:04 Intake & Output 11/24/17 11/25/17 11/25/17 18:59 06:59 18:59 Intake Total 675 600 Balance 675 600 Intake: Intake, IV Titration 675 600 Amount Levofloxacin 750Mg-D5w 100 Pmx 750 mg In Dextrose/ Water 1 150ml.bag @ 100 mls/hr IVPB Q48H [facility] Rx#: [id number] Sodium Chloride 0.9% 1, 525 600 000 ml @ 75 mls/hr IV . [id number] [facility] Rx#:[id number] metroNIDAZOLE-NS PMX 500 50 mg In Saline 1 100ml.bag @ 100 mls/hr IVPB Q8HR [facility] Rx#:[id number] Other: Voiding Method Diaper # Bowel Movements 2 - Exam Abdomen: Soft, nontender, nondistended - Labs CBC & Chem 7: 11/25/17 07:21 11/25/17 07:21 Labs: Abnormal Lab Results - Last 24 Hours (Table) 11/25/17 11/25/17 Range/Units 07:21 07:21 RDW 15.7 H (11.5-15.5) % Chloride 109 H (98-107) mmol/L Carbon Dioxide 19 L (22-30) mmol/L Microbiology - Last 24 Hours (Table) 11/21/17 19:05 Blood Culture - Preliminary Blood No Growth after 72 hours Assessment and Plan (1) Colitis Narrative/Plan: Continue diet as ordered. Increase activity. Continue antibiotics. We'll sign off. Please call if needed. Current Visit: Yes Status: Acute Code(s): K52.9 - NONINFECTIVE GASTROENTERITIS AND COLITIS, UNSPECIFIED SNOMED Code(s): 95154730
--- NOTE | 2017-11-25 16:41 | PN ---
PROGRESS NOTE DATE OF SERVICE: 11/25/2017 This 72-year-old gentleman admitted with right upper quadrant abdominal pain also had possible colitis. The patient appears to be able to tolerate a diet at this time, minimally communicative. Surgery is following the patient and diet is being advanced. No chest pain. No palpitations. No fever. EXAM: Alert and oriented x1. Pulse 69, blood pressure 179/86, respirations 15, temperature 97.2, pulse ox 98% on room air. HEENT: Conjunctivae normal. Oral mucosa moist. Neck is no jugular venous distention. No carotid bruit. No lymph node enlargement. Cardiovascular: S1, S2 muffled. Respiratory: Breath sounds diminished in the bases. No rhonchi. No crackles. Abdomen is soft. Mild diffuse discomfort to palpation. No guarding. No rigidity. No mass palpable. Central nervous system: Left hemiplegia. LABS: WBC 5.9, hemoglobin 13.1, sodium 130, potassium 3.9. ASSESSMENT: 1. Right upper quadrant abdominal pain with possible acute colitis. 2. Acute wall thickening on the CT scan. 3. Chronic kidney stage 3. 4. Gastroesophageal reflux disease. 5. Cerebrovascular accident with left hemiplegia. 6. History of hypertension. 7. History of nicotine dependence. 8. Increased creatinine with acute renal failure present on admission possibly prerenal acute tubular necrosis. 9. Increased WBC. RECOMMENDATIONS AND DISCUSSION: In this 72-year-old gentleman who presented with multiple complex medical issues, we will monitor the patient closely, continue the current medications, management and symptomatic treatment. Otherwise I would advance the diet. Recommend continue empiric antibiotics. PT/OT evaluation. Possible return to [facility] once the patient tolerates the diet. Guarded prognosis. Further recommendations to follow. MMODL / IJN: [id number] /
[2017-11-25] MEDS: LOSARTAN 50 MG TAB PO SCH (23:45)
[2017-11-25] MEDS: DILTIAZEM CD 180 MG CAP.ER.24H PO SCH (23:45)
[2017-11-25] MEDS: ATORVASTATIN 40 MG TAB PO SCH (23:45)
[2017-11-26] MEDS: SODIUM CHLORIDE 0.9% 1,000 ML IV SCH ×2 (06:42→17:05)
[2017-11-26 07:31] LABS: Basophils % (A) 0 %; Eosinophils # (A) 0.1 k/uL (0-0.7); Eosinophils % (A) 3 %; HCT 38.9 % (39.0-53.0); HGB 12.7 gm/dL (13.0-17.5); Lymphocytes # (A) 1.1 k/uL (1.0-4.8); Lymphocytes % (A) 21 %; MCH 28.1 pg (25.0-35.0); MCHC 32.7 g/dL (31.0-37.0); MCV 85.8 fL (80.0-100.0); Monocytes # (A) 0.3 k/uL (0-1.0); Monocytes % (A) 6 %; Neutrophils # (A) 3.5 k/uL (1.3-7.7); Neutrophils % (A) 68 %; Platelet Count 193 k/uL (150-450); RBC 4.54 m/uL (4.30-5.90); RDW 15.6 % (11.5-15.5); WBC 5.2 k/uL (3.8-10.6)
[2017-11-26 07:45] LABS: Calcium 8.9 mg/dL (8.4-10.2); Potassium 3.6 mmol/L (3.5-5.1)
[2017-11-26] MEDS: metroNIDAZOLE-NS PMX 500 MG in SALINE 1 100ML.BAG IVPB SCH ×3 (09:01→23:55)
[2017-11-26] MEDS: SODIUM BICARBONATE TAB 650 MG TAB PO SCH ×3 (09:02→23:54)
[2017-11-26] MEDS: LABETALOL 100 MG TAB PO SCH ×2 (09:02→23:54)
[2017-11-26] MEDS: HEPARIN SODIUM,PORCINE 5,000 UNIT/ML 1 ML VIAL SQ SCH ×3 (09:02→23:53)
[2017-11-26] MEDS: SERTRALINE 100 MG TAB PO SCH (09:03)
[2017-11-26] MEDS: PANTOPRAZOLE 40 MG TABLET PO SCH ×2 (09:03→23:54)
[2017-11-26] MEDS: amLODIPine 5 MG TAB PO SCH (09:03)
[2017-11-26] MEDS: FERROUS SULFATE 325 MG TAB PO SCH (09:03)
[2017-11-26] MEDS: cloNIDine HCL 0.2 MG TAB PO SCH ×3 (09:03→23:54)
[2017-11-26] MEDS: ONDANSETRON 4 MG/2 ML VIAL IVP PRN (09:45)
[2017-11-26] MEDS: LEVOFLOXACIN 750MG-D5W PMX 750 MG in DEXTROSE/WATER 1 150ML.BAG IVPB SCH (11:21)
--- NOTE | 2017-11-26 21:03 | PN ---
PROGRESS NOTE DATE OF SERVICE: 11/26/2017 This 72-year-old gentleman admitted with right upper quadrant with possible colitis on IV antibiotics. The patient is improving significantly. No chest pain. No palpitations. No fever. Surgery is following the patient closely. EXAM: Alert and oriented x3. Pulse 70, blood pressure 140/81, respiration 18, temperature 98.2, pulse ox 98% on room air. HEENT: Conjunctivae normal. Oral mucosa moist. Neck is no jugular venous distention. No carotid bruit. No lymph node enlargement. CARDIOVASCULAR: S1, S2 muffled. RESPIRATORY: Breath sounds diminished in the bases. A few scattered rhonchi. ABDOMEN: Soft, mild diffuse discomfort to palpation. No guarding. No rigidity. LEGS: No edema. NERVOUS SYSTEM: Diffusely weak. LAB STUDIES: WBC 15.2, hemoglobin 12.7. ASSESSMENT: 1. Acute right upper quadrant abdominal pain with possible acute colitis. 2. Acute rectal wall thickening in the CT scan. 3. Chronic kidney disease stage 3. 4. Gastroesophageal reflux disease. 5. Cerebrovascular accident with left hemiplegia. 6. History of hypertension. 7. History of nicotine dependence. 8. Increased creatinine with acute renal failure on admission possibly prerenal acute tubular necrosis. 9. Increased WBC. RECOMMENDATIONS AND DISCUSSION: This 72-year-old gentleman who presented with multiple medical problems, will monitor the patient closely. Continue the current management and symptomatic treatment. I recommend continue empiric antibiotics. The patient will be transferred back to the [facility] and outpatient follow up with Dr. Mathis as recommended, possibly with colonoscopy. Guarded prognosis. Further recommendations to follow. MMODL / IJN: [id number] /
[2017-11-26] MEDS: DILTIAZEM CD 180 MG CAP.ER.24H PO SCH (23:54)
[2017-11-26] MEDS: ATORVASTATIN 40 MG TAB PO SCH (23:54)
[2017-11-26] MEDS: LOSARTAN 50 MG TAB PO SCH (23:54)
[2017-11-27] MEDS: ONDANSETRON 4 MG/2 ML VIAL IVP PRN ×2 (00:07→08:03)
[2017-11-27] MEDS: PANTOPRAZOLE 40 MG TABLET PO SCH ×2 (07:16→22:40)
[2017-11-27] MEDS: SERTRALINE 100 MG TAB PO SCH (07:16)
[2017-11-27] MEDS: SODIUM BICARBONATE TAB 650 MG TAB PO SCH ×3 (07:17→22:40)
[2017-11-27] MEDS: cloNIDine HCL 0.2 MG TAB PO SCH ×3 (07:17→22:40)
[2017-11-27] MEDS: amLODIPine 5 MG TAB PO SCH (07:17)
[2017-11-27] MEDS: FERROUS SULFATE 325 MG TAB PO SCH (07:17)
[2017-11-27] MEDS: LABETALOL 100 MG TAB PO SCH ×2 (07:18→22:40)
[2017-11-27] MEDS: HEPARIN SODIUM,PORCINE 5,000 UNIT/ML 1 ML VIAL SQ SCH ×3 (07:18→23:55)
[2017-11-27] MEDS: SODIUM CHLORIDE 0.9% 1,000 ML IV SCH (07:18)
[2017-11-27] MEDS: metroNIDAZOLE-NS PMX 500 MG in SALINE 1 100ML.BAG IVPB SCH (08:04)
[2017-11-27 09:26] LABS: Basophils % (A) 0 %; Eosinophils # (A) 0.1 k/uL (0-0.7); Eosinophils % (A) 1 %; HGB 12.9 gm/dL (13.0-17.5); Lymphocytes # (A) 1.1 k/uL (1.0-4.8); Lymphocytes % (A) 18 %; MCH 27.7 pg (25.0-35.0); MCHC 32.1 g/dL (31.0-37.0); MCV 86.2 fL (80.0-100.0); Mean Platelet Volume 6.8; Monocytes # (A) 0.3 k/uL (0-1.0); Monocytes % (A) 5 %; Neutrophils # (A) 4.3 k/uL (1.3-7.7); Neutrophils % (A) 73 %; Platelet Count 199 k/uL (150-450); RBC 4.64 m/uL (4.30-5.90); RDW 15.6 % (11.5-15.5); WBC 5.9 k/uL (3.8-10.6)
[2017-11-27 09:38] LABS: Potassium 3.6 mmol/L (3.5-5.1)
[2017-11-27] MEDS: metroNIDAZOLE 500 MG TAB PO SCH ×2 (17:15→23:59)
[2017-11-27] MEDS: ATORVASTATIN 40 MG TAB PO SCH (22:40)
[2017-11-27] MEDS: LOSARTAN 50 MG TAB PO SCH (22:40)
[2017-11-27] MEDS: DILTIAZEM CD 180 MG CAP.ER.24H PO SCH (23:55)
--- NOTE | 2017-11-28 00:19 | PN ---
PROGRESS NOTE DATE OF SERVICE: November 27, 2017. PRESENTING COMPLAINT: Tired. INTERVAL HISTORY: This patient admitted with acute colitis, doing much better, tolerating some diet. Does not much of an appetite. No abdominal pain. No bowel movement today. The patient needs some assistance, but the patient is keen to go home as he normally manages with a wheelchair and a walker at home. REVIEW OF SYSTEMS: Done for constitutional, cardiovascular, GI, pulmonary and relevant findings as above. CURRENT MEDICATIONS: Reviewed include p.o. Levaquin and Flagyl. PHYSICAL EXAMINATION: VITAL SIGNS: Temperature 98.4, pulse 69, respiratory 18, blood pressure 159/84, pulse ox 98% on room air. GENERAL APPEARANCE: Lying in bed, awake. EYES: Pupils equal. Conjunctivae pale. HEENT: External apperance of nose and ears normal. Oral cavity normal. NECK: JVD not raised. Mass not palpable. RESPIRATORY: Effort normal. LUNGS: Decreased breath sounds. CARDIOVASCULAR: 1st and 2nd sounds, no edema. ABDOMEN: Soft, nontender. Liver and spleen not palpable. PSYCHIATRY: Awake, answering questions appropriately. INVESTIGATIONS: White count 5.9, hemoglobin 12.9, potassium 3.6. BUN and creatinine is normal. ASSESSMENT: 1. Acute right-sided colitis, could be infectious clinical improvement. 2. Chronic left-sided weakness from prior stroke. 3. Essential hypertension. 4. Gastroesophageal reflux disease. 5. Chronic medical debility, uses a wheelchair and a walker. PLAN: Care was discussed with the patient. Patient is very keen to go home. We will plan for that tomorrow. Questions were answered. MMODL / IJN: [id number] /
[2017-11-28] MEDS: SODIUM CHLORIDE 0.9% 1,000 ML IV SCH ×2 (09:05→12:11)
[2017-11-28] MEDS: metroNIDAZOLE 500 MG TAB PO SCH (09:12)
[2017-11-28] MEDS: SODIUM BICARBONATE TAB 650 MG TAB PO SCH (09:12)
[2017-11-28] MEDS: PANTOPRAZOLE 40 MG TABLET PO SCH (09:12)
[2017-11-28] MEDS: cloNIDine HCL 0.2 MG TAB PO SCH (09:13)
[2017-11-28] MEDS: amLODIPine 5 MG TAB PO SCH (09:13)
[2017-11-28] MEDS: FERROUS SULFATE 325 MG TAB PO SCH (09:13)
[2017-11-28] MEDS: SERTRALINE 100 MG TAB PO SCH (09:14)
[2017-11-28] MEDS: LABETALOL 100 MG TAB PO SCH (09:14)
[2017-11-28] MEDS: HEPARIN SODIUM,PORCINE 5,000 UNIT/ML 1 ML VIAL SQ SCH (09:15)
[2017-11-28] MEDS ORDERED: LEVOFLOXACIN 750 MG TAB PO SCH (10:00)
[2017-11-28 15:09] VITALS: BP 165/79; PULSE 66; RESP 16; TEMP 98.4
--- NOTE | 2017-11-28 15:58 | DS ---
DISCHARGE SUMMARY DATE OF ADMISSION: 11/21/2017 DATE OF DISCHARGE: 11/28/2017. FINAL DIAGNOSES: 1. Acute right-sided colitis, possibly infectious. 2. Chronic left-sided weakness from prior stroke. 3. Essential hypertension. 4. Gastroesophageal reflux disease. 5. Chronic medical debility, uses a wheelchair and walker. HOSPITAL COURSE: This gentleman presented with pain in the right side of the abdomen, had 1 episode of diarrhea. Did have an ultrasound of the gallbladder that was nonspecific. CT scan of the abdomen and pelvis also some nonspecific findings. It was felt the patient may have had a bit of colitis. Responded well to the current antibiotics. Doing well. The patient's appetite is not the greatest. No abdominal pain present. CONSULTATION: Dr. Mathis from General surgery. EXAMINATION: Temp 98.4. Pulse 66, respirations 16, blood pressure 165/79. Pulse ox 98% on room air. ABDOMEN: Soft, nontender. PSYCH: AO x3. INVESTIGATIONS: White count 5.9, potassium 3.6. DISCHARGE MEDICATIONS: 1. Aspirin 81 mg a day. 2. Lipitor 40 mg q.h.s. 3. Cardizem extended release 180 mg q.h.s. 4. Losartan 50 mg q.h.s. 5. Milk of magnesia 30 mL every 72 hours p.r.n. 6. Labetalol 3 mg p.o. b.i.d. 7. Zoloft 100 mg p.o. daily. 8. Catapres 0.3 mg p.o. t.i.d. 9. Sodium bicarb 325 mg p.o. t.i.d. 10.Dulcolax every 72 hours p.r.n. 11.Iron 325 p.o. daily. 12.Protonix 40 mg p.o. b.i.d. 13.Norvasc 5 mg p.o. daily. 14.Tylenol 500 mg q.8h p.r.n. 15.Phenergan 12.5 q.6h p.r.n. 16.Fairchance 5 one tablet q.8h p.r.n. 17.Levaquin 750 mg every 24 hours for 5 days. 18.Flagyl 500 mg every 8 hours for 5 days. DISPOSITION: [facility]. FOLLOWUP: Follow up with Dr. Weinberg at the [facility]. Copy to Dr. Weinberg. MMSIGRIDL / IJN: [id number] /
== END 2017-11-28 16:35 | DRG 391 ==
LOC: EC 17:32 → 4SSUR 21:43
PROVIDERS: ADMIT Hospitalist; ATTEND Hospitalist
DX: A09 Infectious gastroenteritis and colitis, unspecified (principal); N17.0 Acute kidney failure with tubular necrosis; E46 Unspecified protein-calorie malnutrition; I69.354 Hemiplegia and hemiparesis following cerebral infarction affecting left non-dominant side; K57.92 Diverticulitis of intestine, part unspecified, without perforation or abscess without bleeding; N18.3 Chronic kidney disease, stage 3 (moderate); K59.00 Constipation, unspecified; I12.9 Hypertensive chronic kidney disease with stage 1 through stage 4 chronic kidney disease, or unspecified chronic kidney disease; R40.2362 Coma scale, best motor response, obeys commands, at arrival to emergency department; R40.2142 Coma scale, eyes open, spontaneous, at arrival to emergency department; R40.2252 Coma scale, best verbal response, oriented, at arrival to emergency department; K21.0 Gastro-esophageal reflux disease with esophagitis; Z79.82 Long term (current) use of aspirin; Z79.899 Other long term (current) drug therapy; Z93.1 Gastrostomy status; Z85.118 Personal history of other malignant neoplasm of bronchus and lung; Z87.891 Personal history of nicotine dependence
CPT/HCPCS: 36415; 71046; 74018; 74176; 76705; 80048; 80053; 81001; 82150; 83605; 83690; 85025; 85027; 85379; 85610; 85730; 87040; 96361; 96365; 96374; 96375; 99285

== ENCOUNTER 2017-11-29 11:19 | Inpatient (IN) | payer MEDICARE, OTHER ==
[2017-11-29] MEDS ORDERED: SODIUM CHLORIDE 0.9% 1,000 ML IV STA (11:34)
[2017-11-29 12:10] LABS: Basophils % (A) 0 %; Eosinophils # (A) 0.1 k/uL (0-0.7); Eosinophils % (A) 1 %; HGB 14.5 gm/dL (13.0-17.5); Lymphocytes # (A) 0.7 k/uL (1.0-4.8); Lymphocytes % (A) 10 %; MCH 27.4 pg (25.0-35.0); MCHC 32.2 g/dL (31.0-37.0); MCV 85.3 fL (80.0-100.0); Mean Platelet Volume 7.2; Monocytes # (A) 0.3 k/uL (0-1.0); Monocytes % (A) 4 %; Neutrophils # (A) 6.4 k/uL (1.3-7.7); Neutrophils % (A) 84 %; Platelet Count 247 k/uL (150-450); RBC 5.27 m/uL (4.30-5.90); RDW 15.8 % (11.5-15.5); WBC 7.6 k/uL (3.8-10.6)
[2017-11-29] MEDS ORDERED: MORPHINE SULFATE 4 MG/ML SYRINGE IVP STA (12:13)
--- NOTE | 2017-11-29 12:14 | ED ---
Abdominal Pain HPI - General Chief Complaint: Abdominal Pain Stated Complaint: Abd Pain Time Seen by Provider: 11/29/17 11:33 Source: EMS Mode of arrival: EMS Limitations: physical limitation - History of Present Illness Initial Comments: This is a 72-year-old male to the ER for evaluation. Patient does say for evaluation regards to abdominal pain nausea vomiting. Patient's poor strain secondary to underlying dictation history of CVA. Patient sent in for evaluation regards to abdominal pain and vomiting MD Complaint: abdominal pain -: unknown Location: diffuse, periumbilical, epigastric Radiation: none Migration to: no migration Severity: moderate Severity scale (1-10): 3 Quality: cramping Consistency: constant Improves With: nothing Worsens With: nothing Associated Symptoms: nausea, vomiting - Related Data Home Medications Medication Instructions Recorded Confirmed Aspirin [Adult Low Dose Aspirin EC] 81 mg PO QAM 09/21/16 11/29/17 Atorvastatin Calcium [Lipitor] 40 mg PO HS 09/21/16 11/29/17 Diltiazem HCl [Diltiazem 24Hr ER] 180 mg PO HS 01/05/17 11/29/17 Losartan Potassium 50 mg PO HS 01/05/17 11/29/17 Magnesium Hydroxide [Milk of 30 ml PO Q72H PRN 01/05/17 11/29/17 Magnesia] Sertraline [Zoloft] 100 mg PO QAM 05/09/17 11/29/17 cloNIDine HCL [Catapres] 0.3 mg PO TID 05/09/17 11/29/17 Bisacodyl 10 mg RECTAL Q72H PRN 07/19/17 11/29/17 Ferrous Sulfate [Iron (65 MG 325 mg PO DAILY 07/19/17 11/29/17 Elemental)] Pantoprazole Sodium [Protonix] 40 mg PO BID 07/19/17 11/29/17 amLODIPine [Norvasc] 5 mg PO QAM 07/19/17 11/29/17 Acetaminophen Tab [Tylenol] 500 mg PO Q8HR PRN 11/21/17 11/29/17 Promethazine HCl [Phenergan Syrup] 12.5 mg PO Q6HR PRN 11/21/17 11/29/17 Docusate [Colace] 100 mg PO BID 11/29/17 11/29/17 Sertraline [Zoloft] 100 mg PO DAILY 11/29/17 11/29/17 Previous Rx's Medication Instructions Recorded Labetalol [Trandate] 300 mg PO BID #1 tab 01/09/17 Sodium Bicarbonate Tab 325 mg PO TID tab 05/13/17 Hydrocodone/Acetaminophen [[place] 1 tab PO Q8HR PRN #10 tablet 11/28/17 5-325] Levofloxacin [Levaquin] 750 mg PO Q24H #0 tab 11/28/17 metroNIDAZOLE [Flagyl] 500 mg PO Q8HR #15 tab 11/28/17 Allergies Allergy/AdvReac Type Severity Reaction Status Date / Time No Known Allergies Allergy Verified 11/29/17 12:16 Review of Systems ROS Statement: Those systems with pertinent positive or pertinent negative responses have been documented in the HPI. ROS Other: All systems not noted in ROS Statement are negative. 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 History of Any Multi-Drug Resistant Organisms: None Reported Past Surgical History: No Surgical Hx Reported Additional Past Surgical History / Comment(s): bronchoscopy. Patient has peg tube he says was placed 3 months ago. Past Anesthesia/Blood Transfusion Reactions: No Reported Reaction Additional Past Anesthesia/Blood Transfusion Reaction / Comment(s): unknown anesthesia and family hx Past Psychological History: No Psychological Hx Reported Smoking Status: Current some day smoker Past Alcohol Use History: Daily Past Drug Use History: None Reported - Past Family History Father History Unknown: Yes Mother History Unknown: Yes General Exam Limitations: physical limitation General appearance: alert, in no apparent distress Head exam: Present: atraumatic, normocephalic, normal inspection Eye exam: Present: normal appearance, PERRL, EOMI. Absent: scleral icterus, conjunctival injection, periorbital swelling ENT exam: Present: normal exam, mucous membranes moist Neck exam: Present: normal inspection. Absent: tenderness, meningismus, lymphadenopathy Respiratory exam: Present: normal lung sounds bilaterally. Absent: respiratory distress, wheezes, rales, rhonchi, stridor Cardiovascular Exam: Present: regular rate, normal rhythm, normal heart sounds. Absent: systolic murmur, diastolic murmur, rubs, gallop, clicks GI/Abdominal exam: Present: soft, normal bowel sounds. Absent: distended, tenderness, guarding, rebound, rigid Extremities exam: Present: normal inspection, full ROM, normal capillary refill. Absent: tenderness, pedal edema, joint swelling, calf tenderness Back exam: Present: normal inspection Neurological exam: Present: alert, oriented X3, CN II-XII intact Psychiatric exam: Present: normal affect, normal mood Skin exam: Present: warm, dry, intact, normal color. Absent: rash Course Vital Signs 11/29/17 11:27 Temperature 99.3 F Pulse Rate 81 Respiratory 18 Rate Blood Pressure 194/103 O2 Sat by Pulse 100 Oximetry - Reevaluation(s) Reevaluation #1: 11/29/17 14:29 Medical record is reviewed Reevaluation #2: 11/29/17 14:29 Patient has prior evaluation for exact similar symptoms. Patient symptoms are much improved both compared to prior hospitalization and here in the emergency room Medical Decision Making - Medical Decision Making 72-year-old male the ER with abdominal pain nausea vomiting. Knee is improved from prior. Labs are negative. Patient can be discharged home - Lab Data Result diagrams: 11/29/17 11:43 11/29/17 11:43 Lab Results 11/29/17 11/29/17 11/29/17 Range/Units 11:43 11:43 11:43 WBC 7.6 (3.8-10.6) k/uL RBC 5.27 (4.30-5.90) m/uL Hgb 14.5 (13.0-17.5) gm/dL Hct 45.0 (39.0-53.0) % MCV 85.3 (80.0-100.0) fL MCH 27.4 (25.0-35.0) pg MCHC 32.2 (31.0-37.0) g/dL RDW 15.8 H (11.5-15.5) % Plt Count 247 (150-450) k/uL Neutrophils % 84 % Lymphocytes % 10 % Monocytes % 4 % Eosinophils % 1 % Basophils % 0 % Neutrophils # 6.4 (1.3-7.7) k/uL Lymphocytes # 0.7 L (1.0-4.8) k/uL Monocytes # 0.3 (0-1.0) k/uL Eosinophils # 0.1 (0-0.7) k/uL Basophils # 0.0 (0-0.2) k/uL PT (9.0-12.0) sec INR (<1.2) APTT (22.0-30.0) sec Sodium 145 (137-145) mmol/L Potassium 3.5 (3.5-5.1) mmol/L Chloride 109 H (98-107) mmol/L Carbon Dioxide 21 L (22-30) mmol/L Anion Gap 15 mmol/L BUN 16 (9-20) mg/dL Creatinine 1.11 (0.66-1.25) mg/dL Est GFR (CKD-EPI)AfAm 76 (>60 ml/min/1.73 sqM) Est GFR (CKD-EPI)NonAf 66 (>60 ml/min/1.73 sqM) Glucose 107 H (74-99) mg/dL Plasma Lactic Acid Rey (0.7-2.0) mmol/L Calcium 9.9 (8.4-10.2) mg/dL Total Bilirubin 0.8 (0.2-1.3) mg/dL AST 26 (17-59) U/L ALT 20 L (21-72) U/L Alkaline Phosphatase 54 (38-126) U/L Total Creatine Kinase 258 H (55-170) U/L CK-MB (CK-2) 1.9 (0.0-2.4) ng/mL CK-MB (CK-2) Rel Index 0.7 Troponin I 0.013 (0.000-0.034) ng/mL Total Protein 7.4 (6.3-8.2) g/dL Albumin 4.3 (3.5-5.0) g/dL Amylase 103 (30-110) U/L Lipase 189 (23-300) U/L Urine Color Urine Appearance (Clear) Urine pH (5.0-8.0) Ur Specific [place] (1.001-1.035) Urine Protein (Negative) Urine Glucose (UA) (Negative) Urine Ketones (Negative) Urine Blood (Negative) Urine Nitrite (Negative) Urine Bilirubin (Negative) Urine Urobilinogen (<2.0) mg/dL Ur Leukocyte Esterase (Negative) Urine RBC (0-5) /hpf Urine WBC (0-5) /hpf Ur Squamous Epith Cells (0-4) /hpf Urine Bacteria (None) /hpf Urine Mucus (None) /hpf 11/29/17 11/29/17 11/29/17 Range/Units 11:43 11:43 12:05 WBC (3.8-10.6) k/uL RBC (4.30-5.90) m/uL Hgb (13.0-17.5) gm/dL Hct (39.0-53.0) % MCV (80.0-100.0) fL MCH (25.0-35.0) pg MCHC (31.0-37.0) g/dL RDW (11.5-15.5) % Plt Count (150-450) k/uL Neutrophils % % Lymphocytes % % Monocytes % % Eosinophils % % Basophils % % Neutrophils # (1.3-7.7) k/uL Lymphocytes # (1.0-4.8) k/uL Monocytes # (0-1.0) k/uL Eosinophils # (0-0.7) k/uL Basophils # (0-0.2) k/uL PT 12.6 H (9.0-12.0) sec INR 1.3 H (<1.2) APTT 24.9 (22.0-30.0) sec Sodium (137-145) mmol/L Potassium (3.5-5.1) mmol/L Chloride (98-107) mmol/L Carbon Dioxide (22-30) mmol/L Anion Gap mmol/L BUN (9-20) mg/dL Creatinine (0.66-1.25) mg/dL Est GFR (CKD-EPI)AfAm (>60 ml/min/1.73 sqM) Est GFR (CKD-EPI)NonAf (>60 ml/min/1.73 sqM) Glucose (74-99) mg/dL Plasma Lactic Acid Rey 1.1 (0.7-2.0) mmol/L Calcium (8.4-10.2) mg/dL Total Bilirubin (0.2-1.3) mg/dL AST (17-59) U/L ALT (21-72) U/L Alkaline Phosphatase (38-126) U/L Total Creatine Kinase (55-170) U/L CK-MB (CK-2) (0.0-2.4) ng/mL CK-MB (CK-2) Rel Index Troponin I (0.000-0.034) ng/mL Total Protein (6.3-8.2) g/dL Albumin (3.5-5.0) g/dL Amylase (30-110) U/L Lipase (23-300) U/L Urine Color Light Yellow Urine Appearance Clear (Clear) Urine pH 6.5 (5.0-8.0) Ur Specific [place] 1.008 (1.001-1.035) Urine Protein Trace H (Negative) Urine Glucose (UA) Negative (Negative) Urine Ketones 2+ H (Negative) Urine Blood Moderate H (Negative) Urine Nitrite Negative (Negative) Urine Bilirubin Negative (Negative) Urine Urobilinogen <2.0 (<2.0) mg/dL Ur Leukocyte Esterase Negative (Negative) Urine RBC 17 H (0-5) /hpf Urine WBC 1 (0-5) /hpf Ur Squamous Epith Cells 2 (0-4) /hpf Urine Bacteria Rare H (None) /hpf Urine Mucus Rare H (None) /hpf - Radiology Data Radiology results: report reviewed (CT abdomen pelvis is improved from prior), image reviewed Disposition Clinical Impression: Colitis, Abdominal pain Disposition: HOME SELF-CARE Condition: Good Instructions: Abdominal Pain (ED) Is patient prescribed a controlled substance at d/c from ED?: No Referrals: Enoch Weinberg DO [Primary Care Provider] - 1-2 days
[2017-11-29 12:20] LABS: Albumin 4.3 g/dL (3.5-5.0); Calcium 9.9 mg/dL (8.4-10.2); Potassium 3.5 mmol/L (3.5-5.1); Total Bilirubin 0.8 mg/dL (0.2-1.3); Total Protein 7.4 g/dL (6.3-8.2)
[2017-11-29 12:21] LABS: INR 1.3 (<1.2); Partial Thromboplastin Time 24.9 sec (22.0-30.0); Prothrombin Time 12.6 sec (9.0-12.0)
[2017-11-29 12:37] LABS: Appearance,Urine Clear (Clear); Bacteria,Urine Rare /hpf; Bilirubin,Urine Negative (Negative); Blood,Urine Moderate (Negative); Color,Urine Light Yellow; Glucose,Urine (UA) Negative (Negative); Ketones,Urine 2+ (Negative); Leukocyte Esterase,Urine Negative (Negative); Mucus,Urine Rare /hpf; Nitrite,Urine Negative (Negative); PH, Urine 6.5 (5.0-8.0); Protein,Urine Trace (Negative); RBC,Urine 17 /hpf (0-5); Specific Gravity,Urine 1.008 (1.001-1.035); Squamous Epithelial Cell,Urine 2 /hpf (0-4); Urobilinogen,Urine <2.0 mg/dL (<2.0); WBC,Urine 1 /hpf (0-5)
[2017-11-29] MEDS ORDERED: LORazepam 2 MG/ML INJ IV STA (12:39)
[2017-11-29 12:59] LABS: Creatine Kinase MB 1.9 ng/mL (0.0-2.4); Troponin I 0.013 ng/mL (0.000-0.034)
--- NOTE | 2017-11-29 13:39 | CT ---
EXAMINATION TYPE: CT abdomen pelvis w con DATE OF EXAM: 11/29/2017 COMPARISON: 11/21/2017 HISTORY: Abdominal pain CT DLP: 522.7 mGycm Automated exposure control for dose reduction was used. TECHNIQUE: Helical acquisition of images was performed from the lung bases through the pelvis. CONTRAST: Performed without Oral Contrast and with IV Contrast, patient injected with 100 mL of Isovue 300. FINDINGS: LUNG BASES: There is a trace right pleural effusion. Rightward mediastinal shift is seen with fluid c ontained within the distal esophageal lumen. Findings are unchanged from the prior. There is extensiv e emphysematous change at the lung bases. Right lower lung granulomas and hilar granulomas are again seen. LIVER/GB: Mild intrahepatic biliary ductal dilatation is seen with slight main pancreatic ductal prom inence although this measures 2 mm and is within normal limits . Numerous hypoattenuated hepatic lesi ons are scattered throughout the hepatic parenchyma that are too small to accurately characterize. PANCREAS: . Within the uncinate process at its inferior margin on image 37 there is a cystic lesion m easuring 6 mm for which further evaluation with MRCP is recommended. No remote exams for evaluation o f long-term stability. SPLEEN: No significant abnormality is seen. ADRENALS: There is slight thickening of the right adrenal gland, most commonly related to benign adre nal gland hyperplasia. No focal measurable nodule is seen. KIDNEYS: Multiple hypoattenuated renal lesions are seen with the largest on the right measuring simpl e fluid and diving into the renal pelvis without obstructing hydronephrosis. This is seen within the right lower pole measuring 3.4 cm with slight mass effect upon the proximal ureter. Other renal lesio ns seen bilaterally are too small to accurately characterize. FREE AIR: No free air is visualized. REPRODUCTIVE ORGANS: No significant abnormality is seen URINARY BLADDER: No significant abnormality is seen. ADENOPATHY: No greater than 1 cm short axis lymph node is seen within the abdomen or pelvis. OSSEOUS STRUCTURES: Mild multilevel degenerative changes of the spine are present.. BOWEL: There is mild rectal prominence with air-fluid level although this is nondilated measuring 5. 7 cm. Distal rectal circumferential thickening is possibly related to incomplete distention as seen o n the prior exam. No dilated large or small bowel. Right hemicolonic mild fat stranding is seen with small amount of fluid along the right lateral conal fascia. What is thought to be the appendix is air -filled. Stomach is decompressed. Subtle prominence of few left mid abdominal small bowel loops could relate enteritis large decompression. 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 Extensive atheromatous changes are seen of the infrarenal abdomina l aorta and its branches with high-grade stenosis of the right external iliac artery that is multifoc al and stenoses of the proximal femoral arteries bilaterally. Small fat filled umbilical hernia is in cidentally noted. IMPRESSION: 1. FINDINGS SUGGESTING RIGHT HEMICOLONIC INFLAMMATORY CHANGE REPRESENTING IMPROVED COLITIS OF INFECTI OUS OR INFLAMMATORY ETIOLOGY. THIS WAS PREDOMINANT OF THE CECUM ON 11/21/2017 AND COULD ALSO HAVE REP RESENTED TYPHLITIS, LESS COMMON. APPENDIX IS NOT CLEARLY DEFINED. 2. FOCAL NEAR COMPLETE OCCLUSION (GREATER THAN 90% STENOSIS) OF THE LEFT INTERNAL ILIAC ARTERY WITH M ORE DISTAL PATENCY OF THE BRANCH VESSELS. EXTENSIVE ATHEROMATOUS OF THE INFRARENAL ABDOMINAL AORTA AN D ITS BRANCHES IS SEEN. 3. PERSISTENT RIGHT HEMITHORAX VOLUME LOSS, EXTENSIVE EMPHYSEMATOUS CHANGES, AND SMALL RIGHT PLEURAL EFFUSION. 4. FLUID-FILLED DISTAL ESOPHAGUS THAT COULD RELATE TO GASTROESOPHAGEAL REFLUX OR DELAYED PROPULSION. 5. MULTIPLE HYPOATTENUATED HEPATIC AND RENAL LESIONS THAT ARE TOO SMALL TO ACCURATELY CHARACTERIZE BU T MAY REPRESENT CYSTS. 6. PERSISTENT MILD RECTAL WALL THICKENING THAT MAY RELATE TO INCOMPLETE DISTENTION PRIOR EXAM.
[2017-11-29] MEDS ORDERED: LABETALOL 5 MG/ML VIAL MDV IVP STA ×3 (14:31→16:36)
[2017-11-29] MEDS ORDERED: ONDANSETRON 4 MG/2 ML VIAL IVP STA ×3 (15:23→21:15)
[2017-11-29] MEDS: MORPHINE SULFATE 4 MG/ML SYRINGE IVP PRN (16:37)
[2017-11-29] MEDS ORDERED: cloNIDine 0.3 MG/24HR PATCH TRANSDERM STA (16:55)
[2017-11-29] MEDS ORDERED: cloNIDine HCL 0.1 MG TAB PO STA (17:33)
[2017-11-29] MEDS ORDERED: SODIUM CHLORIDE 0.9% 500 ML 500 ML IV STA (19:02)
[2017-11-29] MEDS ORDERED: hydrALAZINE HCL 20 MG/ML 1 ML VIAL IVP STA ×2 (19:03→21:17)
[2017-11-29] MEDS ORDERED: fentaNYL (PF) 50 MCG/ML 2 ML AMP IVP ONE (19:54)
[2017-11-29] MEDS: ACETAMINOPHEN TAB 500 MG TAB PO STA ×2 (21:09→21:16)
[2017-11-29] MEDS ORDERED: ACETAMINOPHEN IV (For NPO) 1,000 MG in EMPTY BAG 1 BAG IVPB STA (21:15)
[2017-11-29] MEDS ORDERED: fentaNYL (PF) 50 MCG/ML 2 ML AMP IV STA (21:17)
--- NOTE | 2017-11-29 21:31 | ED ---
Medical Decision Making - Medical Decision Making Facial he originally was be discharged after his blood pressure normalized. He persists with elevated blood pressure he also started developing nausea and vomiting he also started developing low-grade fever. Due to the events patient will be admitted with evaluation by GI. He does have evidence a CAT scan of colitis. - Lab Data Result diagrams: 11/29/17 11:43 11/29/17 11:43 Lab Results 11/29/17 11/29/17 11/29/17 Range/Units 11:43 11:43 11:43 WBC 7.6 (3.8-10.6) k/uL RBC 5.27 (4.30-5.90) m/uL Hgb 14.5 (13.0-17.5) gm/dL Hct 45.0 (39.0-53.0) % MCV 85.3 (80.0-100.0) fL MCH 27.4 (25.0-35.0) pg MCHC 32.2 (31.0-37.0) g/dL RDW 15.8 H (11.5-15.5) % Plt Count 247 (150-450) k/uL Neutrophils % 84 % Lymphocytes % 10 % Monocytes % 4 % Eosinophils % 1 % Basophils % 0 % Neutrophils # 6.4 (1.3-7.7) k/uL Lymphocytes # 0.7 L (1.0-4.8) k/uL Monocytes # 0.3 (0-1.0) k/uL Eosinophils # 0.1 (0-0.7) k/uL Basophils # 0.0 (0-0.2) k/uL PT (9.0-12.0) sec INR (<1.2) APTT (22.0-30.0) sec Sodium 145 (137-145) mmol/L Potassium 3.5 (3.5-5.1) mmol/L Chloride 109 H (98-107) mmol/L Carbon Dioxide 21 L (22-30) mmol/L Anion Gap 15 mmol/L BUN 16 (9-20) mg/dL Creatinine 1.11 (0.66-1.25) mg/dL Est GFR (CKD-EPI)AfAm 76 (>60 ml/min/1.73 sqM) Est GFR (CKD-EPI)NonAf 66 (>60 ml/min/1.73 sqM) Glucose 107 H (74-99) mg/dL Plasma Lactic Acid Rey (0.7-2.0) mmol/L Calcium 9.9 (8.4-10.2) mg/dL Total Bilirubin 0.8 (0.2-1.3) mg/dL AST 26 (17-59) U/L ALT 20 L (21-72) U/L Alkaline Phosphatase 54 (38-126) U/L Total Creatine Kinase 258 H (55-170) U/L CK-MB (CK-2) 1.9 (0.0-2.4) ng/mL CK-MB (CK-2) Rel Index 0.7 Troponin I 0.013 (0.000-0.034) ng/mL Total Protein 7.4 (6.3-8.2) g/dL Albumin 4.3 (3.5-5.0) g/dL Amylase 103 (30-110) U/L Lipase 189 (23-300) U/L Urine Color Urine Appearance (Clear) Urine pH (5.0-8.0) Ur Specific [place] (1.001-1.035) Urine Protein (Negative) Urine Glucose (UA) (Negative) Urine Ketones (Negative) Urine Blood (Negative) Urine Nitrite (Negative) Urine Bilirubin (Negative) Urine Urobilinogen (<2.0) mg/dL Ur Leukocyte Esterase (Negative) Urine RBC (0-5) /hpf Urine WBC (0-5) /hpf Ur Squamous Epith Cells (0-4) /hpf Urine Bacteria (None) /hpf Urine Mucus (None) /hpf 11/29/17 11/29/17 11/29/17 Range/Units 11:43 11:43 12:05 WBC (3.8-10.6) k/uL RBC (4.30-5.90) m/uL Hgb (13.0-17.5) gm/dL Hct (39.0-53.0) % MCV (80.0-100.0) fL MCH (25.0-35.0) pg MCHC (31.0-37.0) g/dL RDW (11.5-15.5) % Plt Count (150-450) k/uL Neutrophils % % Lymphocytes % % Monocytes % % Eosinophils % % Basophils % % Neutrophils # (1.3-7.7) k/uL Lymphocytes # (1.0-4.8) k/uL Monocytes # (0-1.0) k/uL Eosinophils # (0-0.7) k/uL Basophils # (0-0.2) k/uL PT 12.6 H (9.0-12.0) sec INR 1.3 H (<1.2) APTT 24.9 (22.0-30.0) sec Sodium (137-145) mmol/L Potassium (3.5-5.1) mmol/L Chloride (98-107) mmol/L Carbon Dioxide (22-30) mmol/L Anion Gap mmol/L BUN (9-20) mg/dL Creatinine (0.66-1.25) mg/dL Est GFR (CKD-EPI)AfAm (>60 ml/min/1.73 sqM) Est GFR (CKD-EPI)NonAf (>60 ml/min/1.73 sqM) Glucose (74-99) mg/dL Plasma Lactic Acid Rey 1.1 (0.7-2.0) mmol/L Calcium (8.4-10.2) mg/dL Total Bilirubin (0.2-1.3) mg/dL AST (17-59) U/L ALT (21-72) U/L Alkaline Phosphatase (38-126) U/L Total Creatine Kinase (55-170) U/L CK-MB (CK-2) (0.0-2.4) ng/mL CK-MB (CK-2) Rel Index Troponin I (0.000-0.034) ng/mL Total Protein (6.3-8.2) g/dL Albumin (3.5-5.0) g/dL Amylase (30-110) U/L Lipase (23-300) U/L Urine Color Light Yellow Urine Appearance Clear (Clear) Urine pH 6.5 (5.0-8.0) Ur Specific [place] 1.008 (1.001-1.035) Urine Protein Trace H (Negative) Urine Glucose (UA) Negative (Negative) Urine Ketones 2+ H (Negative) Urine Blood Moderate H (Negative) Urine Nitrite Negative (Negative) Urine Bilirubin Negative (Negative) Urine Urobilinogen <2.0 (<2.0) mg/dL Ur Leukocyte Esterase Negative (Negative) Urine RBC 17 H (0-5) /hpf Urine WBC 1 (0-5) /hpf Ur Squamous Epith Cells 2 (0-4) /hpf Urine Bacteria Rare H (None) /hpf Urine Mucus Rare H (None) /hpf Disposition Clinical Impression: Colitis, Abdominal pain, Intractable nausea and vomiting, Febrile illness, acute Disposition: ADMITTED IP TO THIS HOSP Condition: Good Instructions: Abdominal Pain (ED) Prescriptions: Ondansetron Odt [Zofran Odt] 4 mg PO Q8HR PRN #30 tab PRN Reason: Nausea And Vomiting Referrals: Enoch Weinberg DO [Primary Care Provider] - 1-2 days
[2017-11-29] MEDS ORDERED: NALOXONE 0.4 MG/ML 1 ML VIAL IV PRN (21:32)
[2017-11-29] MEDS ORDERED: BISACODYL 10 MG SUPP RECTAL PRN (21:34)
[2017-11-29] MEDS ORDERED: ACETAMINOPHEN TAB 500 MG TAB PO PRN (21:34)
[2017-11-29] MEDS ORDERED: HYDROcodone/APAP 5-325MG 1 EACH TAB PO PRN (21:34)
[2017-11-29] MEDS ORDERED: MAGNESIUM HYDROXIDE 2,400 MG/10 ML CUP PO PRN (21:34)
[2017-11-29] MEDS ORDERED: PROMETHAZINE HCL 6.25 MG/5 ML CUP PO PRN (21:34)
[2017-11-29] MEDS ORDERED: LEVOFLOXACIN 750 MG TAB PO SCH (21:45)
[2017-11-29] MEDS ORDERED: LEVOFLOXACIN 750MG-D5W PMX 750 MG in DEXTROSE/WATER 1 150ML.BAG IVPB STA (22:52)
[2017-11-29] MEDS: SODIUM BICARBONATE TAB 650 MG TAB PO SCH (22:53)
[2017-11-29] MEDS: SODIUM CHLORIDE 0.9% 1,000 ML IV SCH (23:44)
[2017-11-30] MEDS ORDERED: METOCLOPRAMIDE 5 MG/ML 2 ML VIAL IVP STA (00:30)
[2017-11-30] MEDS: metroNIDAZOLE 500 MG TAB PO SCH ×3 (00:37→16:00)
[2017-11-30] MEDS ORDERED: FAMOTIDINE 20 MG/2 ML VIAL IV STA (00:38)
--- NOTE | 2017-11-30 00:40 | ED ---
Medical Decision Making - Lab Data Result diagrams: 11/29/17 11:43 11/29/17 11:43 Lab Results 11/29/17 11/29/17 11/29/17 Range/Units 11:43 11:43 11:43 WBC 7.6 (3.8-10.6) k/uL RBC 5.27 (4.30-5.90) m/uL Hgb 14.5 (13.0-17.5) gm/dL Hct 45.0 (39.0-53.0) % MCV 85.3 (80.0-100.0) fL MCH 27.4 (25.0-35.0) pg MCHC 32.2 (31.0-37.0) g/dL RDW 15.8 H (11.5-15.5) % Plt Count 247 (150-450) k/uL Neutrophils % 84 % Lymphocytes % 10 % Monocytes % 4 % Eosinophils % 1 % Basophils % 0 % Neutrophils # 6.4 (1.3-7.7) k/uL Lymphocytes # 0.7 L (1.0-4.8) k/uL Monocytes # 0.3 (0-1.0) k/uL Eosinophils # 0.1 (0-0.7) k/uL Basophils # 0.0 (0-0.2) k/uL PT (9.0-12.0) sec INR (<1.2) APTT (22.0-30.0) sec Sodium 145 (137-145) mmol/L Potassium 3.5 (3.5-5.1) mmol/L Chloride 109 H (98-107) mmol/L Carbon Dioxide 21 L (22-30) mmol/L Anion Gap 15 mmol/L BUN 16 (9-20) mg/dL Creatinine 1.11 (0.66-1.25) mg/dL Est GFR (CKD-EPI)AfAm 76 (>60 ml/min/1.73 sqM) Est GFR (CKD-EPI)NonAf 66 (>60 ml/min/1.73 sqM) Glucose 107 H (74-99) mg/dL Plasma Lactic Acid Rey (0.7-2.0) mmol/L Calcium 9.9 (8.4-10.2) mg/dL Total Bilirubin 0.8 (0.2-1.3) mg/dL AST 26 (17-59) U/L ALT 20 L (21-72) U/L Alkaline Phosphatase 54 (38-126) U/L Total Creatine Kinase 258 H (55-170) U/L CK-MB (CK-2) 1.9 (0.0-2.4) ng/mL CK-MB (CK-2) Rel Index 0.7 Troponin I 0.013 (0.000-0.034) ng/mL Total Protein 7.4 (6.3-8.2) g/dL Albumin 4.3 (3.5-5.0) g/dL Amylase 103 (30-110) U/L Lipase 189 (23-300) U/L Urine Color Urine Appearance (Clear) Urine pH (5.0-8.0) Ur Specific [place] (1.001-1.035) Urine Protein (Negative) Urine Glucose (UA) (Negative) Urine Ketones (Negative) Urine Blood (Negative) Urine Nitrite (Negative) Urine Bilirubin (Negative) Urine Urobilinogen (<2.0) mg/dL Ur Leukocyte Esterase (Negative) Urine RBC (0-5) /hpf Urine WBC (0-5) /hpf Ur Squamous Epith Cells (0-4) /hpf Urine Bacteria (None) /hpf Urine Mucus (None) /hpf 11/29/17 11/29/17 11/29/17 Range/Units 11:43 11:43 12:05 WBC (3.8-10.6) k/uL RBC (4.30-5.90) m/uL Hgb (13.0-17.5) gm/dL Hct (39.0-53.0) % MCV (80.0-100.0) fL MCH (25.0-35.0) pg MCHC (31.0-37.0) g/dL RDW (11.5-15.5) % Plt Count (150-450) k/uL Neutrophils % % Lymphocytes % % Monocytes % % Eosinophils % % Basophils % % Neutrophils # (1.3-7.7) k/uL Lymphocytes # (1.0-4.8) k/uL Monocytes # (0-1.0) k/uL Eosinophils # (0-0.7) k/uL Basophils # (0-0.2) k/uL PT 12.6 H (9.0-12.0) sec INR 1.3 H (<1.2) APTT 24.9 (22.0-30.0) sec Sodium (137-145) mmol/L Potassium (3.5-5.1) mmol/L Chloride (98-107) mmol/L Carbon Dioxide (22-30) mmol/L Anion Gap mmol/L BUN (9-20) mg/dL Creatinine (0.66-1.25) mg/dL Est GFR (CKD-EPI)AfAm (>60 ml/min/1.73 sqM) Est GFR (CKD-EPI)NonAf (>60 ml/min/1.73 sqM) Glucose (74-99) mg/dL Plasma Lactic Acid Rey 1.1 (0.7-2.0) mmol/L Calcium (8.4-10.2) mg/dL Total Bilirubin (0.2-1.3) mg/dL AST (17-59) U/L ALT (21-72) U/L Alkaline Phosphatase (38-126) U/L Total Creatine Kinase (55-170) U/L CK-MB (CK-2) (0.0-2.4) ng/mL CK-MB (CK-2) Rel Index Troponin I (0.000-0.034) ng/mL Total Protein (6.3-8.2) g/dL Albumin (3.5-5.0) g/dL Amylase (30-110) U/L Lipase (23-300) U/L Urine Color Light Yellow Urine Appearance Clear (Clear) Urine pH 6.5 (5.0-8.0) Ur Specific [place] 1.008 (1.001-1.035) Urine Protein Trace H (Negative) Urine Glucose (UA) Negative (Negative) Urine Ketones 2+ H (Negative) Urine Blood Moderate H (Negative) Urine Nitrite Negative (Negative) Urine Bilirubin Negative (Negative) Urine Urobilinogen <2.0 (<2.0) mg/dL Ur Leukocyte Esterase Negative (Negative) Urine RBC 17 H (0-5) /hpf Urine WBC 1 (0-5) /hpf Ur Squamous Epith Cells 2 (0-4) /hpf Urine Bacteria Rare H (None) /hpf Urine Mucus Rare H (None) /hpf Disposition Clinical Impression: Colitis, Abdominal pain, Intractable nausea and vomiting, Febrile illness, acute, Hypertension, Upper GI bleed Disposition: ADMITTED IP TO THIS HOSP Condition: Good
[2017-11-30] MEDS: MORPHINE SULFATE 4 MG/ML SYRINGE IVP PRN ×3 (00:45→22:26)
[2017-11-30] MEDS ORDERED: hydrALAZINE HCL 20 MG/ML 1 ML VIAL IVP PRN (00:49)
[2017-11-30 02:19] LABS: HCT 53.5 % (39.0-53.0); HGB 16.8 gm/dL (13.0-17.5); Hypochromasia Slight; MCH 27.9 pg (25.0-35.0); MCHC 31.3 g/dL (31.0-37.0); MCV 89.1 fL (80.0-100.0); Mean Platelet Volume 6.8; Platelet Count 255 k/uL (150-450); RDW 15.9 % (11.5-15.5); WBC 9.9 k/uL (3.8-10.6)
[2017-11-30] MEDS: SODIUM CHLORIDE 0.9% 1,000 ML IV SCH ×2 (08:10→16:34)
[2017-11-30] MEDS ORDERED: FERROUS SULFATE 325 MG TAB PO SCH (09:00)
[2017-11-30] MEDS ORDERED: LABETALOL 5 MG/ML VIAL MDV IVP SCH ×2 (09:00)
[2017-11-30] MEDS ORDERED: PANTOPRAZOLE 40 MG TABLET PO SCH (09:00)
[2017-11-30] MEDS ORDERED: DOCUSATE 100 MG CAP PO SCH (09:00)
[2017-11-30] MEDS ORDERED: amLODIPine 5 MG TAB PO SCH (09:00)
[2017-11-30] MEDS ORDERED: ASPIRIN 81 MG PO SCH (09:00)
[2017-11-30] MEDS ORDERED: FAMOTIDINE 20 MG/2 ML VIAL IV SCH (09:00)
[2017-11-30] MEDS: ONDANSETRON 4 MG/2 ML VIAL IVP PRN ×2 (09:51→18:13)
[2017-11-30] MEDS: PANTOPRAZOLE 40 MG/10 ML VIAL IVP SCH ×2 (09:52→21:25)
[2017-11-30] MEDS: LABETALOL 100 MG TAB PO SCH ×2 (10:05→21:45)
[2017-11-30] MEDS: SERTRALINE 100 MG TAB PO SCH (10:06)
[2017-11-30] MEDS: cloNIDine HCL 0.1 MG TAB PO SCH ×3 (10:06→22:15)
[2017-11-30] MEDS: SODIUM BICARBONATE TAB 650 MG TAB PO SCH ×3 (10:07→22:16)
--- NOTE | 2017-11-30 13:32 | P.CONS ---
History of Present Illness - Reason for Consult Consult date: 11/30/17 Colitis Requesting physician: Kwame Albert - Chief Complaint Abdominal pain nausea vomiting - History of Present Illness 72-year-old male resident at [facility] past medical history of non-small cell lung cancer with thoracotomy, CVA with PEG tube insertion and removal, COPD, GERD/ erosive esophagitis, debility. Admitted with recurrent abdominal pain > 1 week generalized across lower abdomen as well as nausea vomiting coffee-ground emesis. History obtained from medical staff and records; presently patient is not forthcoming with history and details. Recently hospitalized a week ago for colitis and discharged on Levaquin and Flagyl. CT abdomen findings suggested right hemicolon inflammatory change colitis possible infectious or inflammatory etiology. Multiple hypoattenuated hepatic and renal lesions too small to characterize may represent cysts with mild rectal wall thickening may related to incomplete distention. Additionally near complete occlusion greater than 90% stenosis of the left internal iliac artery with extensive atheromatous of the infrarenal abdominal aorta and its branches. Previous CT a week ago reported predominant colitis of the cecum possible typhlitis and rectal wall thickening. ER notes mentioned coffee ground colored emesis no recurrence per nursing. Admission white count 7.6. Hemoglobin 14.5. INR 1.3. Nursing reports no episodes of diarrhea hematemesis hematochezia or melena. Elevated blood pressures systolically 180. Receiving Flagyl and Levaquin. T- max 100.8. Unsure if patient has history of colonoscopy. 2 EGDs this year first in May for evaluation of coffee-ground emesis showed severe erosive esophagitis LA grade C reflux esophagitis. EGD in July unremarkable with removal of PEG tube. Review of Systems Constitutional: Admitted with low-grade fever denies, chills, sweats, weight gain, or loss. HEENT: Negative for migraines, blurred vision or loss, earaches, drainage, tinnitus, oral mucosal lesions, dysphagia, or odynophagia. Cardiac: Negative for chest pain, arrhythmias, or palpitation. Respiratory: Negative for shortness of breath, hemoptysis, cough, or sputum production. Gastrointestinal: See HPI for pertinent findings. Genitourinary: Negative for hematuria, urgency, frequency, polyuria, dysuria, or penile discharge. Musculoskeletal: Negative for muscle aches, swelling, arthritis, and arthralgias. Neurologic: Negative for stroke or TIA. Endocrine: Negative for thyroid problems. Skin: Negative for rash or itching. 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 History of Any Multi-Drug Resistant Organisms: None Reported Past Surgical History: No Surgical Hx Reported Additional Past Surgical History / Comment(s): bronchoscopy. Patient has peg tube he says was placed 3 months ago. Past Anesthesia/Blood Transfusion Reactions: No Reported Reaction Additional Past Anesthesia/Blood Transfusion Reaction / Comm: unknown anesthesia and family hx Smoking Status: Former smoker - Past Family History Father History Unknown: Yes Mother History Unknown: Yes Medications and Allergies Home Medications Medication Instructions Recorded Confirmed Type Aspirin [Adult Low Dose Aspirin EC] 81 mg PO QAM 09/21/16 11/29/17 History Atorvastatin Calcium [Lipitor] 40 mg PO HS 09/21/16 11/29/17 History Diltiazem HCl [Diltiazem 24Hr ER] 180 mg PO HS 01/05/17 11/29/17 History Losartan Potassium 50 mg PO HS 01/05/17 11/29/17 History Magnesium Hydroxide [Milk of 30 ml PO Q72H PRN 01/05/17 11/29/17 History Magnesia] Labetalol [Trandate] 300 mg PO BID #1 tab 01/09/17 11/29/17 Rx Sertraline [Zoloft] 100 mg PO QAM 05/09/17 11/29/17 History cloNIDine HCL [Catapres] 0.3 mg PO TID 05/09/17 11/29/17 History Sodium Bicarbonate Tab 325 mg PO TID tab 05/13/17 11/29/17 Rx Bisacodyl 10 mg RECTAL Q72H PRN 07/19/17 11/29/17 History Ferrous Sulfate [Iron (65 MG 325 mg PO DAILY 07/19/17 11/29/17 History Elemental)] Pantoprazole Sodium [Protonix] 40 mg PO BID 07/19/17 11/29/17 History amLODIPine [Norvasc] 5 mg PO QAM 07/19/17 11/29/17 History Acetaminophen Tab [Tylenol] 500 mg PO Q8HR PRN 11/21/17 11/29/17 History Promethazine HCl [Phenergan Syrup] 12.5 mg PO Q6HR PRN 11/21/17 11/29/17 History Hydrocodone/Acetaminophen [[place] 1 tab PO Q8HR PRN #10 tablet 11/28/17 11/29/17 Rx 5-325] Levofloxacin [Levaquin] 750 mg PO Q24H #0 tab 11/28/17 11/29/17 Rx metroNIDAZOLE [Flagyl] 500 mg PO Q8HR #15 tab 11/28/17 11/29/17 Rx Docusate [Colace] 100 mg PO BID 11/29/17 11/29/17 History Ondansetron Odt [Zofran Odt] 4 mg PO Q8HR PRN #30 tab 11/29/17 Rx Sertraline [Zoloft] 100 mg PO DAILY 11/29/17 11/29/17 History Allergies Allergy/AdvReac Type Severity Reaction Status Date / Time No Known Allergies Allergy Verified 11/29/17 12:16 Physical Exam Vitals: Vital Signs Temp Pulse Pulse Resp BP BP Pulse Ox 11/30/17 11:55 98.2 F 80 18 132/78 98 11/30/17 08:00 103 H 18 162/110 98 11/30/17 06:06 98.6 F 16 167/100 98 11/30/17 04:30 100.8 F H 175/99 11/30/17 04:00 105 H 16 180/101 99 11/30/17 03:00 97 18 185/105 99 11/30/17 02:00 100 17 165/91 99 11/29/17 23:53 97 18 168/91 100 11/29/17 22:56 100.6 F H 11/29/17 22:15 84 18 180/98 99 11/29/17 21:50 87 18 175/97 99 11/29/17 20:12 100.5 F H 86 18 186/109 97 11/29/17 19:20 80 20 198/104 96 11/29/17 17:39 70 18 198/110 100 11/29/17 15:21 84 18 166/102 98 11/29/17 14:36 99 18 189/106 99 11/29/17 14:00 184/109 Intake and Output 11/29/17 11/30/17 11/30/17 22:59 06:59 14:59 Intake Total 125 Balance 125 Intake: Intake, IV Titration 125 Amount Sodium Chloride 0.9% 1, 125 000 ml @ 125 mls/hr IV . Q8H [facility] Rx#:[id number] Other: Voiding Method Incontinent # Voids 1 Weight 65.7 kg 51.5 kg General appearance: The patient is alert, flat affect not holding conversation in no acute distress. Cachetic appearance. HET: Head is normocephalic and atraumatic. Pupils are equal and reactive. Oropharynx is clear without lesions. Neck: Supple without lymphadenopathy. Trachea midline. Heart: S1 S2. Regular rate and rhythm. Lungs: No crackles or wheezes are heard. Abdomen: Soft, mild tenderness bilateral lower abdomen, nondistended with bowel sounds. No peritoneal signs. No palpable organomegaly or masses. Extremities: Normal skin color and turgor. No cyanosis, rash, ulceration, clubbing, or edema. Radial and pedal pulses are 2/4 bilaterally. Neurological: Left sided weakness. Results CBC & Chem 7: 11/30/17 01:50 11/29/17 11:43 Labs: Abnormal Lab Results - Last 24 Hours (Table) 11/30/17 Range/Units 01:50 RBC 6.00 H (4.30-5.90) m/uL Hct 53.5 H (39.0-53.0) % RDW 15.9 H (11.5-15.5) % Microbiology - Last 24 Hours (Table) 11/29/17 12:05 Urine Culture - Preliminary Urine,Clean Catch CT scan - abdomen: report reviewed (Dr. Rueda) Assessment and Plan (1) Abdominal pain Narrative/Plan: 72-year-old male dmitted with acute abdominal pain nausea vomiting coffee- ground emesis possible esophagitis gastritis history of erosive esophagitis May 2017. CT abdominal imaging x 2 reporting right sided colitis as well as rectal thickening possible ischemic possible inflammatory possible self limiting infectious without diarrhea hematochezia or melena. CT reported greater than 90% stenosis of the left internal iliac artery extensive atheromatous of the infrarenal abdominal aorta and its branches. Current Visit: Yes Status: Acute Code(s): R10.9 - UNSPECIFIED ABDOMINAL PAIN SNOMED Code(s): 80697008 (2) Colitis Current Visit: Yes Status: Acute Code(s): K52.9 - NONINFECTIVE GASTROENTERITIS AND COLITIS, UNSPECIFIED SNOMED Code(s): 93048291 (3) GERD (gastroesophageal reflux disease) Current Visit: Yes Status: Acute Code(s): K21.9 - GASTRO-ESOPHAGEAL REFLUX DISEASE WITHOUT ESOPHAGITIS SNOMED Code(s): 371448532 (4) Non-small cell carcinoma of right lung Current Visit: No Status: Chronic Code(s): C34.91 - MALIGNANT NEOPLASM OF UNSP PART OF RIGHT BRONCHUS OR LUNG SNOMED Code(s): 051154092 (5) Cachectic Current Visit: Yes Status: Chronic Code(s): R64 - CACHEXIA SNOMED Code(s) : 981135618 (6) H/O: CVA (cerebrovascular accident) Current Visit: Yes Status: Resolved Code(s): Z86.73 - PRSNL HX OF TIA (TIA) , AND CEREB INFRC W/O RESID DEFICITS SNOMED Code(s): 065633753 (7) Hepatic cyst Narrative/Plan: Multiple lesions in liver and kidney per CT too small to characterize probable cysts. Current Visit: Yes Status: Acute Code(s): K76.89 - OTHER SPECIFIED DISEASES OF LIVER SNOMED Code(s): 63302888 (8) H/O: lung cancer Current Visit: Yes Status: Resolved Code(s): Z85.118 - PERSONAL HISTORY OF MALIGNANT NEOPLASM OF BRONCHUS AND LUNG SNOMED Code(s): 692173234 (9) Debility Current Visit: Yes Status: Chronic Code(s): R53.81 - OTHER MALAISE SNOMED Code(s): 04479110 Plan: 1. Agree with antibiotics if patient developed diarrhea will send stool studies including Clostridium difficile testing. Patient was not forthcoming with many details about his presenting complaints nor offered any additional history. IV hydration. Advised outpatient colonoscopy, inpatient endoscopic exam will be contingent on clinical course and patient compliance. Advise vascular consult. 2. Protonix 40 mg IV twice daily. Liquid diet. CBC monitoring. Will follow closely with you. Thank you for this kind referral and the opportunity to participate in the care of your patient. This consultation was discussed with Dr. Rueda. The impression and plan of care have been directed as dictated.
--- NOTE | 2017-11-30 17:03 | HP ---
HISTORY AND PHYSICAL DATE OF ADMISSION: 11/29/2017 DATE OF SERVICE: 11/30/2017 PRESENTING COMPLAINT: Abdominal pain, nausea, vomiting. HISTORY OF PRESENTING COMPLAINT: This is a 72-year-old patient who is at the [facility], being followed by Dr. Weinberg. He was just discharged from the hospital, being here from 11/21/2017, discharged on 11/28/2017. Patient was diagnosed with acute right-sided colitis, possibly infectious, and was discharged on Levaquin and Flagyl for 5 more days. The patient has chronic left-sided weakness from a prior stroke. Other chronic stable medical conditions include hypertension, GERD, chronic medical debility. Patient uses a wheelchair and a walker. Patient presented to the ER when patient again developed abdominal pain, nausea and vomiting. There was no obvious fever or chills. The patient did have a CT scan of the abdomen and was found to have right hemicolonic inflammatory change again representing colitis. Also he was found to have focal, near-complete occlusion (greater than 90% stenosis) of the left internal iliac artery with more distal patency of the branch vessels, fluid-filled distal esophagus. Patient therefore was admitted for the same, put on IV fluids and admitted. REVIEW OF SYSTEMS: CONSTITUTIONAL: Weak, tired, lethargic. HEENT: None. RESPIRATORY: None. CARDIOVASCULAR: None. GASTROINTESTINAL: As above. GENITOURINARY: None. MUSCULOSKELETAL: Some pain in the joints. DERMATOLOGICAL: None. HEMATOLOGICAL: None. LYMPHATICS: None. PSYCHIATRY: None. NEUROLOGICAL: Some chronic left-sided weakness. PAST MEDICAL HISTORY: 1. Stroke with left-sided weakness. 2. [id number] lung cancer, status post right thoracotomy and right lower and middle lobectomies. 3. Hypertension. 4. GERD. 5. Colitis from last admission. PAST SURGICAL HISTORY: 1. PEG tube. 2. Right lung surgery. SOCIAL HISTORY: Patient smoked for close to 50 years; stopped smoking 2 months ago. Resident of [facility]. Drinking 1 drink a day. FAMILY HISTORY: Reviewed; noncontributory to presentation. HOME MEDICATIONS: 1. Flagyl 500 mg p.o. q.8; due for another 4 days. 2. Catapres 0.3 mg p.o. t.i.d. 3. Norvasc 5 mg p.o. daily. 4. Sodium bicarb 325 mg p.o. t.i.d. 5. Zoloft 100 mg daily. 6. Phenergan 12.5 p.o. q.6 p.r.n. 7. Protonix 40 mg b.i.d. 8. Losartan 50 mg at bedtime. 9. Levaquin 750 mg p.o. q.24 hours. 10.Labetalol 300 mg p.o. b.i.d. 11.[place] 5 one tablet q.8 p.r.n. 12.Iron. 13.Colace 100 mg b.i.d. 14.Cardizem 180 mg at bedtime. 15.Lipitor 40 mg at bedtime. 16.Aspirin 81 mg p.o. daily. 17.Zofran 4 mg q.8 p.r.n. ALLERGIES: NONE. PHYSICAL EXAMINATION: VITAL SIGNS ON PRESENTATION: Temperature 100.8, pulse 105, respiration 16, blood pressure 167/100, pulse ox 98% on room air. GENERAL APPEARANCE: Thin build. Lying in bed. Tired, lethargic. EYES: Pupils equal. Conjunctivae pale. HEENT: External appearance of nose and ears normal. Oral cavity dry. NECK: JVD unable to assess. Mass not palpable. RESPIRATORY: Effort normal. LUNGS: Diminished breath sounds. CARDIOVASCULAR: First and second sounds normal. No edema. ABDOMEN: Tender, diffuse. No guarding or rigidity. Liver and spleen not palpable. Bowel sounds present. LYMPHATIC: No lymph node palpable in neck or axillae. PSYCHIATRY: Alert and oriented x3. Mood and affect tired. NEUROLOGICAL: Some weakness on the left side. MUSCULOSKELETAL: Diffuse wasting of the muscles. INVESTIGATIONS: White count 7.6, hemoglobin 14.5, potassium 3.5, BUN 16, creatinine 1.11. CT scan of the abdomen and pelvis as above. ASSESSMENT: 1. Acute flareup of right-sided colitis, probably infectious. 2. Significant left internal iliac artery stenosis. 3. Emphysema in an ex-smoker. 4. Chronic left-sided weakness from a prior stroke. 5. Essential hypertension. 6. Gastroesophageal reflux disease. 7. Chronic medical debility. Uses a wheelchair and a walker. 8. Moderate protein-calorie malnutrition with diffuse wasting of muscle and subcutaneous fat with body mass index of 16.3 from poor oral intake. PLAN: Will start the patient on IV Zosyn, as he may find it difficult to keep the fluids down, and change to IV Flagyl. GI was consulted. Also getting IV fluids. Other home medications will be resumed. Maybe patient's abdominal pain is also from bowel ischemia from internal iliac being nearly occluded; that is bowel angina. Will get opinion from Vascular Surgery for the same. Getting IV fluids. Prognosis remains guarded. MMODL / IJN: [id number] /
[2017-11-30] MEDS: metroNIDAZOLE-NS PMX 500 MG in SALINE 1 100ML.BAG IVPB SCH (18:13)
[2017-11-30] MEDS: PIPERACILLIN-TAZOBACTAM 3.375 GM in DEXTROSE/WATER 1 50ML.BAG IVPB SCH (19:54)
[2017-11-30] MEDS ORDERED: ATORVASTATIN 40 MG TAB PO SCH (21:00)
[2017-11-30] MEDS ORDERED: DILTIAZEM CD 180 MG CAP.ER.24H PO SCH (21:00)
[2017-11-30] MEDS: LOSARTAN 50 MG TAB PO SCH (21:46)
[2017-12-01] MEDS: metroNIDAZOLE-NS PMX 500 MG in SALINE 1 100ML.BAG IVPB SCH ×4 (02:14→23:22)
[2017-12-01] MEDS: SODIUM CHLORIDE 0.9% 1,000 ML IV SCH ×4 (02:17→23:23)
[2017-12-01] MEDS: PIPERACILLIN-TAZOBACTAM 3.375 GM in DEXTROSE/WATER 1 50ML.BAG IVPB SCH ×3 (03:38→17:19)
[2017-12-01] MEDS: LABETALOL 100 MG TAB PO SCH ×2 (09:29→21:12)
[2017-12-01] MEDS: PANTOPRAZOLE 40 MG/10 ML VIAL IVP SCH ×2 (09:29→21:12)
[2017-12-01] MEDS: cloNIDine HCL 0.1 MG TAB PO SCH ×3 (09:29→21:12)
[2017-12-01] MEDS: SODIUM BICARBONATE TAB 650 MG TAB PO SCH ×3 (09:29→21:13)
[2017-12-01] MEDS: SERTRALINE 100 MG TAB PO SCH (09:29)
[2017-12-01] MEDS: ONDANSETRON 4 MG/2 ML VIAL IVP PRN ×2 (10:20→17:23)
[2017-12-01] MEDS: MORPHINE SULFATE 4 MG/ML SYRINGE IVP PRN ×3 (11:31→23:42)
--- NOTE | 2017-12-01 12:45 | P.PN ---
Subjective Progress Note Date: 12/01/17 Principal diagnosis: Abdominal pain 72-year-old male admitted with abdominal pain colitis. Nursing reports no diarrhea hematemesis hematochezia or melena. Afebrile. White count 9.9. Hemoglobin 16.8. Objective - Vital Signs Vital signs: Vital Signs Temp 97.8 F 12/01/17 09:11 Pulse 78 12/01/17 09:11 Resp 17 12/01/17 09:12 BP 141/84 12/01/17 09:11 Pulse Ox 98 12/01/17 09:11 Intake & Output 11/30/17 12/01/17 12/01/17 18:59 06:59 18:59 Intake Total 0 1050 500 Output Total 100 Balance 0 1050 400 Weight 51.5 kg 55.5 kg Intake: Intake, IV Titration 1050 Amount Piperacillin-Tazobactam 3 50 .375 gm In Dextrose/Water 1 50ml.bag @ 12.5 mls/hr IVPB Q8H [facility] Rx#: [id number] Sodium Chloride 0.9% 1, 1000 000 ml @ 125 mls/hr IV . Q8H [facility] Rx#:[id number] Oral 0 500 Output: Urine 100 Other: Voiding Method Incontinent Incontinent Incontinent # Voids 1 - Exam General appearance: The patient is alert, flat affect not holding conversation in no acute distress. Cachetic appearance. HET: Head is normocephalic and atraumatic. Pupils are equal and reactive. Oropharynx is clear without lesions. Neck: Supple without lymphadenopathy. Trachea midline. Heart: S1 S2. Regular rate and rhythm. Lungs: No crackles or wheezes are heard. Abdomen: Soft, mild tenderness bilateral lower abdomen, nondistended with bowel sounds. No peritoneal signs. No palpable organomegaly or masses. Extremities: Normal skin color and turgor. No cyanosis, rash, ulceration, clubbing, or edema. Radial and pedal pulses are 2/4 bilaterally. Neurological: Left sided weakness. - Labs CBC & Chem 7: 11/30/17 01:50 11/29/17 11:43 Labs: Microbiology - Last 24 Hours (Table) 11/29/17 12:05 Urine Culture - Final Urine,Clean Catch Assessment and Plan (1) Abdominal pain Current Visit: Yes Status: Acute Code(s): R10.9 - UNSPECIFIED ABDOMINAL PAIN SNOMED Code(s): 14234617 (2) Colitis Current Visit: Yes Status: Acute Code(s): K52.9 - NONINFECTIVE GASTROENTERITIS AND COLITIS, UNSPECIFIED SNOMED Code(s): 97804381 (3) GERD (gastroesophageal reflux disease) Current Visit: Yes Status: Acute Code(s): K21.9 - GASTRO-ESOPHAGEAL REFLUX DISEASE WITHOUT ESOPHAGITIS SNOMED Code(s): 821024394 (4) Non-small cell carcinoma of right lung Current Visit: No Status: Chronic Code(s): C34.91 - MALIGNANT NEOPLASM OF UNSP PART OF RIGHT BRONCHUS OR LUNG SNOMED Code(s): 763103102 (5) Cachectic Current Visit: Yes Status: Chronic Code(s): R64 - CACHEXIA SNOMED Code(s) : 423400319 (6) H/O: CVA (cerebrovascular accident) Current Visit: Yes Status: Resolved Code(s): Z86.73 - PRSNL HX OF TIA (TIA) , AND CEREB INFRC W/O RESID DEFICITS SNOMED Code(s): 507642958 (7) Hepatic cyst Narrative/Plan: Multiple lesions in liver and kidney per CT too small to characterize probable cysts. Current Visit: Yes Status: Acute Code(s): K76.89 - OTHER SPECIFIED DISEASES OF LIVER SNOMED Code(s): 12555310 (8) H/O: lung cancer Current Visit: Yes Status: Resolved Code(s): Z85.118 - PERSONAL HISTORY OF MALIGNANT NEOPLASM OF BRONCHUS AND LUNG SNOMED Code(s): 125042940 (9) Debility Current Visit: Yes Status: Chronic Code(s): R53.81 - OTHER MALAISE SNOMED Code(s): 84600067 Plan: 1. Agree with antibiotics if patienoft developed diarrhea will send stool studies including Clostridium difficile testing. IV hydration. Advised outpatient colonoscopy, inpatient endoscopic exam will be contingent on clinical course and patient compliance. Vascular consult. 2. Protonix 40 mg IV twice daily. Liquid diet. CBC monitoring. Will follow closely with you. assessment and plan of care discussed with Dr. Rueda
--- NOTE | 2017-12-01 14:13 | CONS ---
DATE OF CONSULTATION: 12/01/2017 This is a 72-year-old gentleman who has been admitted to [facility] with history of nausea and vomiting and abdominal pain. Patient was discharged on 11/21 with a diagnosis of right-sided colitis. Patient has been readmitted. Patient has been complaining of discomfort in lower abdomen, more on the right than on the left. Patient had a CT scan of the abdomen which showed inferior aorta has some atherosclerosis disease. Right external high-grade stenosis, bilateral femoral artery atherosclerosis disease and high- grade stenosis of the left internal iliac artery. Patient has no history of melena, jaundice, or at this point, no diarrhea noted. Patient is chronically debilitated. MEDICAL HISTORY: History of CVA in the past affecting the left side. PERSONAL HISTORY: Smoking. Patient was seen in his room. His neck is supple, trachea central. Chest is clear to auscultation. Abdomen, patient has some guarding on the right side and mild on the left side. No peritoneal signs noted. Bowel sounds are present. Vascular exam showed brachial and radial pulses are present. Femorals are palpable, 1+. Patient came with diagnosis of right-sided colitis. Patient was discussed with Internal Medicine and with GI for the possibility of doing a sigmoidoscopy to see there is any ischemic changes in the colon. At this point, there are treating with antibiotic and IV hydration. The atherosclerosis disease seems to be chronic in nature. We will follow with you. BRENTL / IJN: [id number] / NASIM
[2017-12-01] MEDS: hydrALAZINE HCL 20 MG/ML 1 ML VIAL IVP PRN (14:52)
--- NOTE | 2017-12-01 15:31 | PN ---
PROGRESS NOTE DATE OF SERVICE: 12/01/2017. PRESENTING COMPLAINT: Abdominal pain. INTERVAL HISTORY: This is a patient who was recently in the hospital with acute right-sided colitis, yet again admitted with the same abdominal pain, nausea, vomiting, still currently being treated for colitis. There is also a question of having intestinal angina because of severe arterial compromise and this part is unclear which of the two or both are the cause of his abdominal pain. Patient is not hardly eating,. still complaining of abdominal pain. Patient was also seen by Vascular. REVIEW OF SYSTEMS: Done for constitutional, cardiovascular, GI, pulmonary; relevant findings as above. CURRENT MEDICATIONS: Reviewed that include IV Flagyl and IV Zosyn. PHYSICAL EXAMINATION: Temperature 98.7 pulse 93, respiration 16, blood pressure 203/99, pulse ox 98% on room air. GENERAL APPEARANCE: Lying in bed, tired, awake. EYES: Pupils equal. Conjunctivae are pale. HEENT: External appearance of nose and ears are normal, oral cavity dry. NECK: JVD not raised, mass not palpable. RESPIRATORY: Effort normal. LUNGS: Diminished breath sounds. CARDIOVASCULAR: First and second sounds are normal. No edema. ABDOMEN: Diffuse tenderness. No guarding or rigidity. Liver and spleen not palpable. Bowel sounds are present. PSYCHIATRY: Awake, answering questions. INVESTIGATIONS: White count 9, hemoglobin 16.8. ASSESSMENT: 1. Acute abdominal pain, probably from right-sided colitis that could be ischemic. At the same time, patient has significant intraabdominal arterial stenosis. Patient could be having intestinal angina. 2. Significant left internal artery stenosis. 3. Emphysema in an ex-smoker. 4. Chronic left-sided weakness from prior stroke. 5. Essential hypertension. 6. Gastroesophageal reflux disease. 7. Chronic medical debility, uses a wheelchair and a walker. 8. Moderate protein-calorie malnutrition with diffuse muscle wasting and loss of subcutaneous fat. PLAN: Spoke to Nicki from GI, would rather have them do a colonoscopy to see if this is more of colitis are both or intestinal angina, because these symptoms have been present for quite some time. She will discuss with Dr. Shi and will take it from there. MMODL / IJN: [id number] /
[2017-12-01] MEDS: LOSARTAN 50 MG TAB PO SCH (21:12)
[2017-12-02] MEDS: PIPERACILLIN-TAZOBACTAM 3.375 GM in DEXTROSE/WATER 1 50ML.BAG IVPB SCH ×3 (01:09→17:58)
[2017-12-02] MEDS: SODIUM CHLORIDE 0.9% 1,000 ML IV SCH ×3 (06:21→20:41)
[2017-12-02] MEDS: SODIUM BICARBONATE TAB 650 MG TAB PO SCH ×3 (09:31→20:41)
[2017-12-02] MEDS: LABETALOL 100 MG TAB PO SCH ×2 (09:31→20:41)
[2017-12-02] MEDS: cloNIDine HCL 0.1 MG TAB PO SCH ×3 (09:32→20:41)
[2017-12-02] MEDS: SERTRALINE 100 MG TAB PO SCH (09:32)
[2017-12-02] MEDS: PANTOPRAZOLE 40 MG/10 ML VIAL IVP SCH ×2 (09:32→20:40)
[2017-12-02] MEDS: metroNIDAZOLE-NS PMX 500 MG in SALINE 1 100ML.BAG IVPB SCH ×2 (09:32→16:30)
--- NOTE | 2017-12-02 10:26 | PN ---
PROGRESS NOTE DATE OF DICTATION: 12/02/2017 The patient is a 72-year-old white male admitted to the hospital with abdominal pain associated with nausea, vomiting and some diarrhea. Apparently he was admitted for the same reason about 10 days ago and was discharged home after being treated empirically. During this hospitalization he had a CT of the abdomen done that showed thickening of the right colon suspicious for right-sided colitis. He also has history of severe peripheral vascular disease. Dr. Haynes has been consulted. This morning he says that his abdominal pain is improving. He still has some loose watery bowel movements. Denies any nausea or vomiting. No fever, chills or night sweats. PHYSICAL EXAMINATION: He appears comfortable. No apparent distress. Vital signs are stable. Blood pressure is 145/77, pulse 73, temperature 98.6. HEENT examination is unremarkable. Conjunctivae pink. Sclerae anicteric. Oral cavity no lesions. NECK: No JVD or lymph node enlargement. Chest was clear to auscultation. HEART: Regular rate and rhythm. Abdomen was stiff. It was firm in consistency. Mild tenderness in the right side of the abdomen as well as in the left side of the abdomen. No rebound. No rigidity. EXTREMITIES: No pedal edema. NEURO: He is awake, oriented to name and place, not to time. No labs are available from today. IMPRESSION: Abdominal pain associated with some nausea, vomiting and diarrhea but no rectal bleeding. CT scan of the abdomen done in the emergency room on 11/29 showed thickening of the right colon suspicious for acute colitis, possibly ischemic colitis. He has severe peripheral vascular disease. With his ongoing symptoms, the possibility of right- sided ischemic colitis needs to be considered. Clinically the abdominal pain is gradually improving and so is the diarrhea. RECOMMENDATIONS: I had a lengthy discussion with the patient regarding further management and possibility of colonoscopy in the next 1 or 2 days if his symptoms do not improve. The patient does not seem to understand much at this time. For now I will continue with conservative approach and follow him clinically, and if he continues to have persistent symptoms, we will discuss about further endoscopy intervention. Thank you for this consultation. MMODL / IJN: [id number] /
[2017-12-02] MEDS: MORPHINE SULFATE 4 MG/ML SYRINGE IVP PRN (10:35)
--- NOTE | 2017-12-02 11:32 | PN ---
PROGRESS NOTE This is a 72-year-old gentleman who has been admitted with colitis and on CT scan was found to have some atherosclerotic disease of the aorta and iliacs which is chronic in nature. The patient is lying comfortably in bed today. He has no peritoneal signs. He had liquid stool last night; no evidence of any bloody stool. Patient has been evaluated by GI. We will follow with you. ELEUTERIO / ROLAND: [id number] /
[2017-12-02] MEDS: LOSARTAN 50 MG TAB PO SCH (20:41)
--- NOTE | 2017-12-03 00:11 | PN ---
PROGRESS NOTE DATE OF SERVICE: December 02, 2017. PRESENTING COMPLAINT: Abdominal pain. INTERVAL HISTORY: This is a patient recently hospitalized with acute colitis, admitted again with abdominal pain. The patient seems to have combination of both intestinal angina and also acute colitis. The patient's oral intake is minimal. Still consists of pain off and on. REVIEW OF SYSTEMS: Done for constitutional, cardiovascular, GI, pulmonary, relevant findings as above. CURRENT MEDICATIONS: Reviewed they include IV Flagyl and IV Zosyn. EXAMINATION: VITAL SIGNS: Afebrile, pulse 63, respiratory rate 16, blood pressure 164/79. GENERAL APPEARANCE: Lying in bed, awake. EYES: Pupils equal. Conjunctivae pale. HEENT: External appearance of nose and ears normal. Oral cavity dry. Neck: JVD not raised. Mass not palpable. RESPIRATORY: Effort normal. LUNGS: Decreased breath sounds. CARDIOVASCULAR: 1st and 2nd sounds normal. ABDOMEN: Some tenderness. No guarding and no rigidity. Liver and spleen. PSYCHIATRY: Patient does answer simple questions. INVESTIGATIONS: No blood work from today. The patient's LDH was 687. ASSESSMENT: 1. Acute abdominal pain, probably from right-sided colitis. The patient could also be possibly ischemic. The patient also may have intestinal angina. 2. Significant internal iliac artery stenosis. 3. Emphysema in an ex-smoker. 4. Chronic left-sided weakness from prior stroke. 5. Essential hypertension. 6. Gastroesophageal reflux disease. 7. Chronic medical debility, uses a wheelchair or walker. 8. Moderate protein-calorie malnutrition from decreased oral intake. PLAN: Continue current medication and treatment plan. I think patient may benefit from colonoscopy at least to know what we are treating. May even consider doing more dedicated CT angiogram of the intraabdominal vessels. MMODL / IJN: [id number] /
[2017-12-03] MEDS: hydrALAZINE HCL 20 MG/ML 1 ML VIAL IVP PRN ×2 (00:53→21:04)
[2017-12-03] MEDS: metroNIDAZOLE-NS PMX 500 MG in SALINE 1 100ML.BAG IVPB SCH ×4 (00:53→23:03)
[2017-12-03] MEDS: PIPERACILLIN-TAZOBACTAM 3.375 GM in DEXTROSE/WATER 1 50ML.BAG IVPB SCH ×3 (03:02→17:14)
[2017-12-03] MEDS: SODIUM CHLORIDE 0.9% 1,000 ML IV SCH ×3 (06:14→21:07)
[2017-12-03] MEDS: MORPHINE SULFATE 4 MG/ML SYRINGE IVP PRN (08:11)
[2017-12-03] MEDS: LABETALOL 100 MG TAB PO SCH ×2 (08:14→21:03)
[2017-12-03] MEDS: SODIUM BICARBONATE TAB 650 MG TAB PO SCH ×3 (08:14→21:03)
[2017-12-03] MEDS: SERTRALINE 100 MG TAB PO SCH (08:15)
[2017-12-03] MEDS: cloNIDine HCL 0.1 MG TAB PO SCH ×3 (08:15→21:04)
[2017-12-03] MEDS: PANTOPRAZOLE 40 MG/10 ML VIAL IVP SCH ×2 (08:15→21:04)
[2017-12-03] MEDS: ONDANSETRON 4 MG/2 ML VIAL IVP PRN (08:18)
[2017-12-03 10:03] LABS: Basophils % (A) 0 %; Eosinophils # (A) 0.3 k/uL (0-0.7); Eosinophils % (A) 5 %; HCT 44.1 % (39.0-53.0); Lymphocytes # (A) 0.8 k/uL (1.0-4.8); Lymphocytes % (A) 12 %; MCH 27.7 pg (25.0-35.0); MCHC 31.3 g/dL (31.0-37.0); MCV 88.4 fL (80.0-100.0); Mean Platelet Volume 7.6; Monocytes # (A) 0.3 k/uL (0-1.0); Monocytes % (A) 5 %; Neutrophils # (A) 5.1 k/uL (1.3-7.7); Neutrophils % (A) 76 %; Platelet Count 157 k/uL (150-450); RBC 4.99 m/uL (4.30-5.90); RDW 15.9 % (11.5-15.5); WBC 6.8 k/uL (3.8-10.6)
[2017-12-03 10:15] LABS: HGB 13.8 gm/dL (13.0-17.5)
[2017-12-03 10:16] LABS: Anion Gap 8 mmol/L; Blood Urea Nitrogen 15 mg/dL (9-20); Calcium 8.2 mg/dL (8.4-10.2); Carbon Dioxide 22 mmol/L (22-30); Chloride 110 mmol/L (98-107); Glucose 114 mg/dL (74-99); Potassium 3.3 mmol/L (3.5-5.1); Sodium 140 mmol/L (137-145)
--- NOTE | 2017-12-03 12:51 | PN ---
PROGRESS NOTE DATE OF SERVICE: 12/03/2017. HISTORY: The patient is a 72-year-old pleasant white male admitted to the hospital with abdominal pain, nausea, vomiting, and diarrhea. CT scan of the abdomen at the time of admission to the hospital did show evidence of right-sided colitis. The patient has history of severe peripheral vascular disease. He is presently on empiric antibiotics and doing better. However, yesterday night he started complaining of right lower quadrant abdominal pain and loose bowel movements. Denies any blood or mucus in the stool. He reports no nausea or vomiting. No fever, chills, night sweats. PHYSICAL EXAMINATION: He appears comfortable, in no apparent distress. VITAL SIGNS: Stable, blood pressure 178/88, pulse rate 76, temperature 98.2. HEENT: Examination unremarkable. Conjunctivae pink. Sclerae anicteric. Oral cavity no lesions. CHEST: No JVD or lymph node enlargement. CHEST: Clear to auscultation. HEART: Regular rate and rhythm. ABDOMEN: Soft. There was mild tenderness in the right side of the abdomen and in the left lower quadrant area. EXTREMITIES: No pedal edema. SKIN: No rashes. NEUROLOGIC: Alert and oriented x3. No focal deficits. LABS: From today show WBC of 6.8, hemoglobin 13.8, platelets are 157,000. Basic metabolic panel is within normal limits. IMPRESSION: The patient is admitted to the hospital with lower abdominal pain for the last few days duration, associated with some nausea, vomiting, and diarrhea. CT of the abdomen showed thickening of the right colon suspicious for acute colitis. Presently being treated for possible infectious colitis with IV broad-spectrum antibiotics and symptoms are gradually improving. Possibility of ischemic colitis cannot be entirely excluded given the persistence of the symptoms. RECOMMENDATIONS: Continue with clear liquid diet. We will proceed with colonoscopy tomorrow. Discussed with the patient risks, benefits, and complications of procedure and he is agreeable to it. Thank you for this consultation. MMODL / IJN: [id number] /
[2017-12-03] MEDS ORDERED: PEG 3350-NA SULF,BICARB,CL/KCL 4,000 ML BOTTLE PO ONE (17:00)
--- NOTE | 2017-12-03 20:57 | PN ---
PROGRESS NOTE DATE OF SERVICE: 12/03/17. PRESENT COMPLAINT: Abdominal pain. INTERVAL HISTORY: This patient was recently hospitalized with acute colitis, admitted again. Abdominal pain is unclear whether the pain is from colitis and/or intestinal angina. Today, his pain is better. He was having more pain yesterday. Dr. Shi is proceeding with a colonoscopy tomorrow. REVIEW OF SYSTEMS: Done for constitutional, cardiovascular, GI, pulmonary; relevant findings as above. Abdominal pain is better controlled. CURRENT MEDICATIONS: Reviewed that include IV Flagyl and Zosyn. PHYSICAL EXAMINATION: Temperature 97.9, pulse 68, respirations 14, blood pressure 106/60, pulse ox 95% on room air. GENERAL APPEARANCE: Lying in bed, awake, comfortable. EYES: Pupils equal. Conjunctivae pale. HEENT: External appearance of nose and ears normal. Oral cavity dry. NECK: JVD not raised. Mass not palpable. RESPIRATORY: Effort normal. Lungs, decreased breath sounds. CARDIOVASCULAR: 1st and 2nd sounds normal. No edema. ABDOMEN: Soft. Minimal tenderness. No guarding or rigidity. PSYCH: Awake, answering questions. INVESTIGATIONS: White count 6.8, hemoglobin 13.8, potassium 3.3. BUN and creatinine are normal. ASSESSMENT: 1. Acute abdominal pain, probably from right-sided colitis ischemic. The patient may also have intestinal angina. 2. Significant internal iliac stenosis. 3. Emphysema in an ex-smoker. 4. Chronic left-sided weakness from prior stroke. 5. Essential hypertension. 6. Gastroesophageal reflux disease. 7. Chronic medical debility, uses a wheelchair and/or walker. 8. Moderate protein-calorie malnutrition from decreased oral intake. PLAN: I spoke to Dr. Shi. She will be doing a colonoscopy tomorrow. In the meantime, continue current medication and treatment plan. MMODL / IJN: [id number] /
[2017-12-03] MEDS: LOSARTAN 50 MG TAB PO SCH (21:04)
[2017-12-04] MEDS: PIPERACILLIN-TAZOBACTAM 3.375 GM in DEXTROSE/WATER 1 50ML.BAG IVPB SCH ×3 (04:15→17:39)
[2017-12-04] MEDS: metroNIDAZOLE-NS PMX 500 MG in SALINE 1 100ML.BAG IVPB SCH ×2 (08:41→15:45)
[2017-12-04] MEDS: SODIUM CHLORIDE 0.9% 1,000 ML IV SCH ×3 (08:41→21:57)
[2017-12-04] MEDS: SERTRALINE 100 MG TAB PO SCH (08:43)
[2017-12-04] MEDS: cloNIDine HCL 0.1 MG TAB PO SCH ×3 (08:43→21:13)
[2017-12-04] MEDS: PANTOPRAZOLE 40 MG/10 ML VIAL IVP SCH ×2 (08:43→20:27)
[2017-12-04] MEDS: LABETALOL 100 MG TAB PO SCH ×2 (08:44→20:27)
[2017-12-04] MEDS: SODIUM BICARBONATE TAB 650 MG TAB PO SCH ×3 (08:48→21:12)
[2017-12-04] MEDS: MORPHINE SULFATE 4 MG/ML SYRINGE IVP PRN ×2 (08:49→21:21)
--- NOTE | 2017-12-04 09:34 | P.PN ---
Subjective Progress Note Date: 12/04/17 Principal diagnosis: Abdominal pain Patient refuses colonoscopy. Afebrile. No episodes of hematemesis hematochezia melena. Mild abdominal discomfort. Objective - Vital Signs Vital signs: Vital Signs Temp 98.4 F 12/04/17 07:15 Pulse 67 12/04/17 07:15 Resp 18 12/03/17 23:26 BP 153/78 12/04/17 07:15 Pulse Ox 97 12/04/17 07:15 Intake & Output 12/03/17 12/04/17 12/04/17 18:59 06:59 18:59 Intake Total 1325 Balance 1325 Weight 60.5 kg Intake: Intake, IV Titration 225 Amount Sodium Chloride 0.9% 1, 125 000 ml @ 125 mls/hr IV . Q8H HEATHER Rx#:[id number] metroNIDAZOLE-NS PMX 500 100 mg In Saline 1 100ml.bag @ 100 mls/hr IVPB Q8HR HEATHER Rx#:[id number] Oral 1100 Other: Voiding Method Urinal Urinal Urinal Incontinent Incontinent Incontinent # Voids 2 # Bowel Movements 1 - Exam General appearance: The patient is alert, flat affect not holding conversation in no acute distress. Cachetic appearance. HET: Head is normocephalic and atraumatic. Pupils are equal and reactive. Oropharynx is clear without lesions. Neck: Supple without lymphadenopathy. Trachea midline. Heart: S1 S2. Regular rate and rhythm. Lungs: No crackles or wheezes are heard. Abdomen: Soft, mild tenderness bilateral lower abdomen, nondistended with bowel sounds. No peritoneal signs. No palpable organomegaly or masses. Extremities: Normal skin color and turgor. No cyanosis, rash, ulceration, clubbing, or edema. Radial and pedal pulses are 2/4 bilaterally. Neurological: Left sided weakness. - Labs CBC & Chem 7: 12/03/17 09:24 12/03/17 09:24 Labs: Abnormal Lab Results - Last 24 Hours (Table) 12/03/17 12/03/17 Range/Units 09:24 09:24 RDW 15.9 H (11.5-15.5) % Lymphocytes # 0.8 L (1.0-4.8) k/uL Potassium 3.3 L (3.5-5.1) mmol/L Chloride 110 H (98-107) mmol/L Glucose 114 H (74-99) mg/dL Calcium 8.2 L (8.4-10.2) mg/dL Assessment and Plan (1) Abdominal pain Narrative/Plan: 72-year-old male dmitted with acute abdominal pain nausea vomiting coffee- ground emesis possible esophagitis gastritis history of erosive esophagitis May 2017. CT abdominal imaging x 2 reporting right sided colitis as well as rectal thickening possible ischemic possible inflammatory possible self limiting infectious without diarrhea hematochezia or melena. CT reported greater than 90% stenosis of the left internal iliac artery extensive atheromatous of the infrarenal abdominal aorta and its branches. Current Visit: Yes Status: Acute Code(s): R10.9 - UNSPECIFIED ABDOMINAL PAIN SNOMED Code(s): 18347446 (2) Colitis Current Visit: Yes Status: Acute Code(s): K52.9 - NONINFECTIVE GASTROENTERITIS AND COLITIS, UNSPECIFIED SNOMED Code(s): 15642503 (3) GERD (gastroesophageal reflux disease) Current Visit: Yes Status: Acute Code(s): K21.9 - GASTRO-ESOPHAGEAL REFLUX DISEASE WITHOUT ESOPHAGITIS SNOMED Code(s): 772284747 (4) Non-small cell carcinoma of right lung Current Visit: No Status: Chronic Code(s): C34.91 - MALIGNANT NEOPLASM OF UNSP PART OF RIGHT BRONCHUS OR LUNG SNOMED Code(s): 222255743 (5) Cachectic Current Visit: Yes Status: Chronic Code(s): R64 - CACHEXIA SNOMED Code(s) : 249040361 (6) H/O: CVA (cerebrovascular accident) Current Visit: Yes Status: Resolved Code(s): Z86.73 - PRSNL HX OF TIA (TIA) , AND CEREB INFRC W/O RESID DEFICITS SNOMED Code(s): 689261906 (7) Hepatic cyst Narrative/Plan: Multiple lesions in liver and kidney per CT too small to characterize probable cysts. Current Visit: Yes Status: Acute Code(s): K76.89 - OTHER SPECIFIED DISEASES OF LIVER SNOMED Code(s): 35924479 (8) H/O: lung cancer Current Visit: Yes Status: Resolved Code(s): Z85.118 - PERSONAL HISTORY OF MALIGNANT NEOPLASM OF BRONCHUS AND LUNG SNOMED Code(s): 216061114 (9) Debility Current Visit: Yes Status: Chronic Code(s): R53.81 - OTHER MALAISE SNOMED Code(s): 30489445 Plan: 1. Soft GI diet as tolerated. Patient is refusing colonoscopy. Continue symptomatic supportive measures. Discharge per medicine. 2. Protonix 40 mg IV twice daily. CBC monitoring. assessment and plan of care discussed with Dr. Rueda
--- NOTE | 2017-12-04 19:39 | PN ---
PROGRESS NOTE DATE OF SERVICE: 12/04/2017 PRESENTING COMPLAINT: Abdominal pain. INTERVAL HISTORY: This is a patient who was admitted with acute colitis, also felt to have intestinal angina. Patient was due for a colonoscopy today but refused the same. Having abdominal pain on and off. The patient had some loose stools today, but no blood. REVIEW OF SYSTEMS: Done for constitutional, cardiovascular, GI, pulmonary; relevant findings as above. CURRENT MEDICATIONS: Reviewed. They include IV Flagyl and IV Zosyn. PHYSICAL EXAMINATION: Temperature 97.5, pulse 58, respiration 16, blood pressure 120/67, pulse ox 99%. GENERAL APPEARANCE: Lying in bed, awake. EYES: Pupils equal. Conjunctivae pale. HEENT: External appearance of nose and ears normal. Oral cavity dry. NECK: JVD not raised. Mass not palpable. RESPIRATORY: Effort normal. LUNGS: Decreased breath sounds. CARDIOVASCULAR: First and second sounds normal. No edema. ABDOMEN: Soft. Minimal tenderness. PSYCHIATRY: Awake. Answering questions. INVESTIGATIONS: No blood work from today. ASSESSMENT: 1. Acute abdominal pain, probably from right-sided colitis, ischemic. Patient may also have intestinal angina. Patient again has refused colonoscopy, which is then on and off. 2. Internal iliac artery stenosis of 90%. 3. Emphysema in an ex-smoker. 4. Chronic left-sided weakness from prior stroke. 5. Essential hypertension. 6. Gastroesophageal reflux disease. 7. Chronic medical debility. Uses a wheelchair and a walker. 8. Moderate protein-calorie malnutrition from decreased oral intake. PLAN: Patient is a conundrum. He keeps refusing colonoscopies; he will say yes and then refuse again. Given that colitis, will complete another course of antibiotics. If it is intestinal angina really, much cannot be offered, given that this is rather diffuse, will have to accept some amount of abdominal pain. Will switch the patient to oral antibiotics and discharge him back to the [facility] tomorrow. MMODL / IJN: [id number] /
[2017-12-04] MEDS: AMOXIC-POT CLAV 875-125MG 1 EACH TAB PO SCH (20:27)
[2017-12-04] MEDS: LOSARTAN 50 MG TAB PO SCH (20:27)
[2017-12-05] MEDS: hydrALAZINE HCL 20 MG/ML 1 ML VIAL IVP PRN (02:10)
[2017-12-05] MEDS: MORPHINE SULFATE 4 MG/ML SYRINGE IVP PRN (02:42)
[2017-12-05 07:42] VITALS: RESP 16; TEMP 98.1
[2017-12-05] MEDS: SODIUM CHLORIDE 0.9% 1,000 ML IV SCH ×2 (08:43→08:45)
[2017-12-05] MEDS: LABETALOL 100 MG TAB PO SCH (08:44)
[2017-12-05] MEDS: SODIUM BICARBONATE TAB 650 MG TAB PO SCH ×2 (08:44→16:01)
[2017-12-05] MEDS: SERTRALINE 100 MG TAB PO SCH (08:44)
[2017-12-05] MEDS: PANTOPRAZOLE 40 MG/10 ML VIAL IVP SCH (08:44)
[2017-12-05] MEDS: cloNIDine HCL 0.1 MG TAB PO SCH ×2 (08:44→16:01)
[2017-12-05] MEDS: AMOXIC-POT CLAV 875-125MG 1 EACH TAB PO SCH (08:44)
[2017-12-05 14:14] VITALS: BMI 19.3
[2017-12-05 15:21] VITALS: BP 121/59; PULSE 69
--- NOTE | 2017-12-05 15:55 | DS ---
DISCHARGE SUMMARY DATE OF ADMISSION: 11/29/2017 DATE OF DISCHARGE: 12/05/2017 FINAL DIAGNOSES: 1. Acute right-sided colitis, ischemic. 2. 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 3. Emphysema in an ex-smoker. 4. Chronic left-sided weakness from prior stroke. 5. Essential hypertension. 6. Gastroesophageal reflux disease. 7. Chronic medical debility. Uses a wheelchair and a walker. 8. Moderate protein-calorie malnutrition from decreased oral intake. CONSULTATIONS: 1. Dr. Germaine Shi from GI. 2. Dr. Evan Haynes from Vascular. HOSPITAL COURSE: This patient, who was just discharged from the hospital with acute colitis, presented yet again with abdominal pain. The patient was felt to have both acute ischemic colitis and intestinal angina from significant internal iliac stenosis. Patient was offered colonoscopy, but patient refused the same. The patient has already had a pretty long stretch of antibiotics. Patient will continue to have intermittent abdominal pain from intestinal angina. Nothing more can be done about the same. Patient is really picky about food, too. Prognosis is not good. Patient is seen by Dr. Germaine Shi from GI. I did speak to Nicki today. Did explain this to the patient that really not much can be done. PHYSICAL EXAMINATION: Temperature 98.1, pulse 74, respiration 16, blood pressure 124/65, pulse ox 97% on room air. ABDOMEN: Soft. Minimal tenderness. No guarding or rigidity. INVESTIGATIONS: White count 6.8, hemoglobin 13.8, potassium 3.3, BUN 15, creatinine 0.93. DISCHARGE MEDICATIONS: 1. Aspirin 81 mg a day. 2. Lipitor 40 mg at bedtime. 3. Losartan 50 mg at bedtime. 4. Milk of Magnesia 30 mL q.72 hours p.r.n. 5. Labetalol 300 mg b.i.d. 6. Zoloft 100 mg p.o. daily. 7. Catapres 0.3 mg p.o. t.i.d. 8. Sodium bicarbonate 325 p.o. t.i.d. 9. Dulcolax q.72 hours p.r.n. 10.Iron 325 p.o. daily. 11.Protonix 40 mg b.i.d. 12.Tylenol 500 mg q.8 p.r.n. 13.Phenergan 12.5 p.o. q.6 p.r.n. 14.Zofran 4 mg q.8 p.r.n. 15.Zoloft 100 mg p.o. daily. 16.Augmentin 875 one tablet q.12; 40 tablets. 17.[place] 5 one tablet q.8 p.r.n. Diet to be soft, bland. DISPOSITION: [facility]. Follow up with Dr. Weinberg. Follow up with GI within the week. Diet soft, bland. Prognosis is guarded. MMODL / IJN: [id number] /
== END 2017-12-05 18:14 | DRG 394 ==
LOC: EC 11:19 → 3SCARD 21:32 → UNDODISIN 11-30 05:45 → 3SCARD 11-30 05:49 → 4SSUR 11-30 22:55
PROVIDERS: ADMIT Hospitalist; ATTEND Hospitalist
PROC: 0D9670Z Drainage of Stomach with Drainage Device, Via Natural or Artificial Opening (ICD-10-PCS; principal; 2017-11-30)
DX: K55.039 Acute (reversible) ischemia of large intestine, extent unspecified (principal); I69.354 Hemiplegia and hemiparesis following cerebral infarction affecting left non-dominant side; E44.0 Moderate protein-calorie malnutrition; R64 Cachexia; Z68.1 Body mass index [BMI] 19.9 or less, adult; K55.1 Chronic vascular disorders of intestine; J43.9 Emphysema, unspecified; K76.89 Other specified diseases of liver; I70.203 Unspecified atherosclerosis of native arteries of extremities, bilateral legs; I70.0 Atherosclerosis of aorta; I70.8 Atherosclerosis of other arteries; I10 Essential (primary) hypertension; K21.0 Gastro-esophageal reflux disease with esophagitis; Z79.82 Long term (current) use of aspirin; Z79.899 Other long term (current) drug therapy; Z85.118 Personal history of other malignant neoplasm of bronchus and lung; Z87.891 Personal history of nicotine dependence; Z90.2 Acquired absence of lung [part of]; Z87.19 Personal history of other diseases of the digestive system
CPT/HCPCS: 36415; 74177; 80048; 80053; 81001; 82150; 82271; 82550; 82553; 83605; 83615; 83690; 84484; 85025; 85027; 85610; 85730; 86850; 86900; 86901; 87086; 96361; 96365; 96366; 96374; 96375; 96376; 99285

== ENCOUNTER 2018-08-17 15:09 | Emergency (ER) | payer MEDICARE, OTHER ==
[2018-08-17 16:12] VITALS: RESP 18
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
[2018-08-17 17:59] VITALS: BP 128/83; PULSE 58; TEMP 97.7
== END 2018-08-17 18:29 | disposition home or self-care (01) ==
LOC: EC 15:09
DX: R46.89 Other symptoms and signs involving appearance and behavior (principal); K21.9 Gastro-esophageal reflux disease without esophagitis; I10 Essential (primary) hypertension; Z86.73 Personal history of transient ischemic attack (TIA), and cerebral infarction without residual deficits; Z85.118 Personal history of other malignant neoplasm of bronchus and lung; Z87.891 Personal history of nicotine dependence; Z79.82 Long term (current) use of aspirin; Z79.899 Other long term (current) drug therapy
CPT/HCPCS: 82075; 99284